=== PATIENT | female | born 1965 | race Hispanic/Latino ===

== ENCOUNTER 2021-05-04 09:28 | Emergency (ER) | payer SELFPAY ==
--- OUTSIDE RECORDS SUMMARY | 2021-05-04 09:31 | XMS REPORT | Continuity of Care Document ---
:1965 Author Organization [facility] t Address [address] [place] [address] Care Team Providers Name Role Phone Wiliam Gutierres APN Attending Clinician Problems This patient has no known problems. Allergies, Adverse Reactions, Alerts This patient has no known allergies or adverse reactions. Medications This patient has no known medications. Procedures This patient has no known procedures. Encounters Start End Encounter Admission Attending Care Care Encounter Source Date/Time Date/Time Type Type Clinicians Facility Department ID 2019-07-01 2019-07-01 Emergency [facility] [id number] 20:04:11 21:35:00 Wiliam [place] [id number] [place] [id number] [place] [id number] Results This patient has no known results.
[2021-05-04 10:32] LABS: Hematocrit 27.8 % (36.0-45.0); Lymphocytes % 33.3 % (15.3-44.8); MPV 10.4 fL (7.6-11.3); RBC Red Blood Cell Count 3.31 M/uL (3.86-4.86)
[2021-05-04 10:36] LABS: Protime INR 0.84
[2021-05-04 10:53] LABS: ALT/SGPT 39 U/L (12-78); AST/SGOT 13 U/L (15-37); Albumin 3.5 g/dL (3.4-5.0); Alkaline Phosphatase 127 U/L (45-117); BUN Blood Urea Nitrogen 55 mg/dL (7-18); Bicarbonate 26 mmol/L (21-32); Bilirubin Direct < 0.1 mg/dL (0-0.2); Bilirubin Total 0.3 mg/dL (0.2-1.0); Glucose Level 386 mg/dL (74-106); Magnesium 2.3 mg/dL (1.8-2.4); NT PRO-BNP 568 pg/mL (<125); Potassium 4.7 mmol/L (3.5-5.1); Protein, Total 7.4 g/dL (6.4-8.2); Sodium Level 136 mmol/L (136-145); Troponin (Emerg Dept Use Only) < 0.02 ng/mL (0.0-0.045)
[2021-05-04 11:07] LABS: Urine Blood 3+ (Negative); Urine Glucose 3+ (Negative); Urine Protein Negative (Negative); Urine Specific Gravity 1.015 (1.005-1.030); Urine pH 5.5 (5.0-7.0)
[2021-05-04] MEDS ORDERED: INSULIN -REGULAR HUMAN 50 UNIT/0.5 ML ML ONE (11:25)
[2021-05-04] MEDS ORDERED: NA CHLORIDE 0.9% 1,000 ML ONE (11:25)
--- NOTE | 2021-05-04 11:51 | RAD REPORT ---
EXAM DESCRIPTION: CT - Head Brain Wo Cont - 05/04/2021 11:24 am CLINICAL HISTORY: Dizziness COMPARISON: 2016 TECHNIQUE: Computed axial tomography of the head was obtained. IV contrast was not requested. All CT scans are performed using dose optimization technique as appropriate and may include automated exposure control or mA/KV adjustment according to patient size. FINDINGS: An intracranial bleed is not seen . The ventricles are normal in caliber. No extra-axial fluid collection is noted. Fluid within the sinuses/ mastoids is not seen. IMPRESSION: No acute intracranial abnormality is seen. If patient's symptoms persist MRI of the bra in would be recommended.
--- NOTE | 2021-05-04 11:54 | RAD REPORT ---
EXAM DESCRIPTION: [place] Single View05/04/2021 11:48 am CLINICAL HISTORY: Shortness of breath COMPARISON: 2017 FINDINGS: Mild chronic appearing lung opacities are present. Lungs appear clear of acute infiltrate. The heart is normal size
[2021-05-04 12:22] LABS: Urine Specific Gravity/Preg 1.015 (1.005-1.030)
[2021-05-04] MEDS ORDERED: D50W 50 ML IV ONE (12:44)
--- NOTE | 2021-05-04 15:11 | EDPHYS ---
Physician Documentation [facility] Name: Khris Salazar Age: 55 yrs Sex: Female : 1965 Arrival Date: 05/04/2021 Time: 09:30 Bed 16 Private MD: ED Physician Philippe Newsome HPI: 05/04 10:08 This 55 yrs old Female presents to ER via Ambulatory with complaints of kb Abnormal Lab Results, Dizziness, Shortness Of Breath. 10:08 The patient has shortness of breath at rest. Onset: The symptoms/episode began/occurred kb 1 month(s) ago. Duration: The symptoms are continuous. The patient's shortness of breath is aggravated by exertion, is alleviated by rest. Associated signs and symptoms: Pertinent positives: dizziness, Pertinent negatives: chest pain, non-productive cough, productive cough, diaphoresis, fever, hemoptysis, loss of consciousness, nausea, numbness in extremities, visual changes, vomiting. Severity of symptoms: At their worst the symptoms were severe in the emergency department the symptoms are unchanged. The patient has not experienced similar symptoms in the past. The patient has not recently seen a physician. Pt reports she had labs done yesterday. Her dr called her today and told her to come to the ER for high potassium and glucose. States she was having routine blood work done to recheck her liver enzymes that were previously high. States she has had some shortness of breath and dizziness over the last month. Shortness of breath worse on exertion. . Historical: - Allergies: 09:56 No Known Allergies; ph - PMHx: 09:56 Diabetes - IDDM; Hypertension; ph - Immunization history:: Client reports having NOT received the Covid vaccine. - Social history:: Smoking status: Patient/guardian denies using tobacco, the patient reports quitting approximately 1 years ago. ROS: 10:10 Constitutional: Negative for fever, chills, and weight loss. kb 10:10 Respiratory: Positive for dyspnea on exertion, shortness of breath. 10:10 Neuro: Positive for dizziness. 10:10 All other systems are negative. Exam: 10:10 Constitutional: This is a well developed, well nourished patient who is awake, alert, kb and in no acute distress. Head/Face: Normocephalic, atraumatic. ENT: Moist Mucous membranes Cardiovascular: Regular rate and rhythm with a normal S1 and S2. No gallops, murmurs, or rubs. No pulse deficits. Respiratory: Respirations even and unlabored. No increased work of breathing, no retractions or nasal flaring. Abdomen/GI: Soft, non-tender. No distention Skin: Warm, dry with normal turgor. Normal color. MS/ Extremity: Pulses equal, no cyanosis. Neurovascular intact. Full, normal range of motion. Neuro: Awake and alert, GCS 15, oriented to person, place, time, and situation. Moves all extremities. Normal gait. Psych: Awake, alert, with orientation to person, place and time. Behavior, mood, and affect are within normal limits. Vital Signs: 09:53 BP 169 / 74; Pulse 99; Resp 18; Temp 98.0; Pulse Ox 98% on R/A; Weight 62.6 kg; ph 11:14 BP 134 / 83; Pulse 90; Resp 16; Pulse Ox 100% ; bp 12:00 BP 129 / 47; Pulse 102; Resp 19; Pulse Ox 100% ; bp 13:08 BP 149 / 56; Pulse 89; Resp 16; Pulse Ox 100% ; bp 14:46 BP 156 / 71; Pulse 94; Resp 16; Pulse Ox 100% ; bp 15:03 BP 156 / 71; Pulse 94; Resp 16; Temp 98; Pulse Ox 100% ; bp MDM: 09:57 Patient medically screened. kb 10:08 Data reviewed: vital signs, nurses notes. Data interpreted: Pulse oximetry: on room air kb is 98 %. Interpretation: normal. 15:09 Counseling: I had a detailed discussion with the patient and/or guardian regarding: the kb historical points, exam findings, and any diagnostic results supporting the discharge/admit diagnosis, lab results, radiology results, the need for outpatient follow up, a family practitioner, to return to the emergency department if symptoms worsen or persist or if there are any questions or concerns that arise at home. ED course: Pt reports she is feeling better. . 05/04 10:03 Order name: Basic Metabolic Panel kb 05/04 10:03 Order name: CBC with Diff; Complete Time: 10:37 kb 05/04 10:03 Order name: LFT's; Complete Time: 10:54 kb 05/04 10:03 Order name: Magnesium; Complete Time: 10:54 kb 05/04 10:03 Order name: NT PRO-BNP; Complete Time: 10:54 kb 05/04 10:03 Order name: PT-INR; Complete Time: 10:37 kb 05/04 10:03 Order name: Troponin (emerg Dept Use Only); Complete Time: 10:54 kb 05/04 10:03 Order name: Acetone, Serum; Complete Time: 10:54 kb 05/04 10:03 Order name: Basic Metabolic Panel; Complete Time: 10:54 EDMS 05/04 11:00 Order name: Glucose bp 05/04 11:01 Order name: Glucose Level; Complete Time: 11:41 EDMS 05/04 11:06 Order name: Urine Dipstick-Ancillary; Complete Time: 11:31 EDMS 05/04 11:09 Order name: Urine --Ancillary (enter results); Complete Time: 12:23 bd 05/04 11:11 Order name: Glucose, Ancillary Testing; Complete Time: 11:31 EDMS 05/04 10:03 Order name: XRAY Chest (1 view); Complete Time: 11:57 kb 05/04 10:03 Order name: EKG; Complete Time: 10:03 kb 05/04 10:03 Order name: Cardiac monitoring; Complete Time: 10:26 kb 05/04 10:03 Order name: EKG - Nurse/Tech; Complete Time: 10:26 kb 05/04 10:03 Order name: IV Saline Lock; Complete Time: 10:39 kb 05/04 10:03 Order name: Labs collected and sent; Complete Time: 10:26 kb 05/04 10:03 Order name: O2 Per Protocol; Complete Time: 10:39 kb 05/04 10:03 Order name: O2 Sat Monitoring; Complete Time: 10:39 kb 05/04 10:57 Order name: CT Head Brain wo Cont; Complete Time: 11:57 kb 05/04 12:23 Order name: Diet Regular; Complete Time: 12:23 kb 05/04 12:33 Order name: Glucose, Ancillary Testing; Complete Time: 12:36 EDMS 05/04 14:18 Order name: Glucose, Ancillary Testing; Complete Time: 14:21 EDMS 05/04 15:13 Order name: Glucose, Ancillary Testing; Complete Time: 15:16 EDMS 05/04 10:03 Order name: Urine Dipstick-Ancillary (obtain specimen); Complete Time: 11:11 kb 05/04 14:58 Order name: Blood Glucose Level; Complete Time: 15:02 kb Administered Medications: 11:10 Drug: Insulin Regular Human 10 units {Co-Signature: [email or web address] (Jamel Perry RN).} Route: IVP; bp Site: left forearm; 13:06 Follow up: Response: Blood sugar is lowered bp 11:10 Drug: NS 0.9% 1000 ml Route: IV; Rate: 1000 ml; Site: left forearm; bp 15:40 Follow up: IV Status: Completed infusion; IV Intake: 1000ml bp 12:35 Drug: D50W 50 ml Route: IVP; Site: left forearm; bp 15:02 Follow up: Response: Marked relief of symptoms bp Disposition: 05/05 08:47 Co-signature as Attending Physician, Philippe Newsome MD I agree with the assessment and kdr plan of care. Disposition Summary: 05/04/21 15:11 Discharge Ordered Location: Home kb Condition: Stable kb Diagnosis - Dizziness and giddiness kb - Hyperglycemia, unspecified kb Followup: kb - With: Emergency Department - When: As needed - Reason: Worsening of condition Followup: kb - With: Private Physician - When: 2 - 3 days - Reason: Recheck today's complaints, Continuance of care, Re-evaluation by your physician Discharge Instructions: - Discharge Summary Sheet kb - Vertigo, [id number] kb - Dizziness, Oryb-ey-[id number] kb - Hyperglycemia, [id number] kb Forms: - Medication Reconciliation Form kb - Thank You Letter kb - Antibiotic Education kb - Prescription Opioid Use kb Signatures: Dispatcher [employer] EDMD Jennifer Mendoza, JIMY-C JIMY-Philippe Proctor MD MD [facility] Jeni Fung, RN RN ph Biju Ramirez, RN RN bp Jamel Perry RN [email or web address] Corrections: (The following items were deleted from the chart) 05/04 15:10 14:21 Counseling: I had a detailed discussion with the patient and/or guardian kb regarding: the historical points, exam findings, and any diagnostic results supporting the discharge/admit diagnosis, lab results, radiology results, the need for outpatient follow up, a family practitioner, to return to the emergency department if symptoms worsen or persist or if there are any questions or concerns that arise at home, : 14: Response to treatment: the patient's symptoms have markedly improved after kb treatment, 15: 14: ED course: Pt states she is feeling much better and wants to go home. Pt agrees kb to stay to lower BGL to acceptable level. Pt will follow up with PCP and return for worsening symptoms. kb
--- NOTE | 2021-05-04 15:11 | ER ---
Nurse's Notes [facility] Name: Khris Salazar Age: 55 yrs Sex: Female : 1965 Arrival Date: 05/04/2021 Time: 09:30 Bed 16 Private MD: Diagnosis: Dizziness and giddiness;Hyperglycemia, unspecified Presentation: 05/04 09:53 Chief complaint: Patient states: Was seen at [facility] yesterday and had blood ph work done, called her today and said her K+ was 6.7, BGL was 792 and liver enzymes were elevated, pt reports SOB and dizziness that has been ongoing for "a few weeks" denies vomiting or pain. Coronavirus screen: Client denies travel out of the [place] in the last 14 days. Ebola Screen: No symptoms or risks identified at this time. Initial Sepsis Screen: Does the patient meet any 2 criteria? No. Patient's initial sepsis screen is negative. Does the patient have a suspected source of infection? No. Patient's initial sepsis screen is negative. Risk Assessment: Do you want to hurt yourself or someone else? Patient reports no desire to harm self or others. Onset of symptoms was May 04, 2021. 09:53 Method Of Arrival: Ambulatory ph 09:53 Acuity: DINO 3 ph Triage Assessment: 10:00 General: Appears in no apparent distress. comfortable, Behavior is cooperative, bp appropriate for age, anxious. Pain: Denies pain. EENT: No deficits noted. Neuro: Reports. Cardiovascular: No deficits noted. Respiratory: Reports shortness of breath Onset: The symptoms/episode began/occurred at an unknown time. the patient has mild shortness of breath. GI: No signs and/or symptoms were reported involving the gastrointestinal system. : No signs and/or symptoms were reported regarding the genitourinary system. Derm: No deficits noted. Musculoskeletal: No deficits noted. Historical: - Allergies: 09:56 No Known Allergies; ph - PMHx: 09:56 Diabetes - IDDM; Hypertension; ph - Immunization history:: Client reports having NOT received the Covid vaccine. - Social history:: Smoking status: Patient/guardian denies using tobacco, the patient reports quitting approximately 1 years ago. Screenin:00 Abuse screen: Denies threats or abuse. Denies injuries from another. Nutritional bp screening: No deficits noted. Tuberculosis screening: No symptoms or risk factors identified. Fall Risk None identified. Assessment: 10:00 General: SEE TRIAGE NOTE. bp 11:14 Reassessment: No changes from previously documented assessment. Patient and/or family bp updated on plan of care and expected duration. Pain level reassessed. Cardiovascular: Rhythm is sinus rhythm. Respiratory: Airway is patent Respiratory effort is even, unlabored, Breath sounds are clear bilaterally. 12:03 Reassessment: No changes from previously documented assessment. Patient and/or family bp updated on plan of care and expected duration. Pain level reassessed. PT RETURNED FROM RAD. ALL CURRENT ORDERS COMPLDTED. 12:27 Reassessment: PT DIAPHORETIC AND TREMULOUS, BGL READS 40. PT GIVEN D50 AMP AND MEAL bp TRAY TO NOTABLE IMPROVEMENT. 14:00 Reassessment: Patient appears in no apparent distress at this time. REPEAT BGL DUE FOR bp DISPO. Neuro: Level of Consciousness is awake, alert, obeys commands, Oriented to Appropriate for age. 15:38 Reassessment: PT D/C HOME AMBULATORY WITH FAMILY, DX WITH DIZZINESS AND HYPERGLYCEMIA. bp Vital Signs: 09:53 BP 169 / 74; Pulse 99; Resp 18; Temp 98.0; Pulse Ox 98% on R/A; Weight 62.6 kg; ph 11:14 BP 134 / 83; Pulse 90; Resp 16; Pulse Ox 100% ; bp 12:00 BP 129 / 47; Pulse 102; Resp 19; Pulse Ox 100% ; bp 13:08 BP 149 / 56; Pulse 89; Resp 16; Pulse Ox 100% ; bp 14:46 BP 156 / 71; Pulse 94; Resp 16; Pulse Ox 100% ; bp 15:03 BP 156 / 71; Pulse 94; Resp 16; Temp 98; Pulse Ox 100% ; bp ED Course: 09:30 Patient arrived in ED. am2 09:56 Triage completed. ph 09:56 Arm band placed on Patient placed in an exam room. ph 09:57 [facility]C [facility] kb 09:57 Philippe Newsome MD is Attending Physician. kb 10:00 Allergy band placed. Bed in low position. Call light in reach. Side rails up X2. bp 10:05 Biju Ramirez, CIARRA is Primary Nurse. bp 10:26 Basic Metabolic Panel Sent. mh5 10:26 Acetone, Serum Sent. [facility] 10:26 Basic Metabolic Panel Sent. [facility] 10:27 Initial lab(s) drawn, by fl, sent to lab. EKG done, by ED staff, reviewed by Philippe Newsome MD. Missed attempt(s): 22 gauge in left forearm. 11:11 Placed in gown. Adult w/ patient. Warm blanket given. java web architect on. Pulse ox on. 5 NIBP on. 11:11 Urine collected: clean catch specimen, clear. [facility] 11:13 Inserted saline lock: 20 gauge in left forearm, using aseptic technique. Blood bp collected. 11:24 CT Head Brain wo Cont In Process Unspecified. EDMS 11:36 Glucose Sent. bp 11:48 XRAY Chest (1 view) In Process Unspecified. EDMS 15:39 No provider procedures requiring assistance completed. IV discontinued, intact, bp bleeding controlled, No redness/swelling at site. Pressure dressing applied. Administered Medications: 11:10 Drug: Insulin Regular Human 10 units {Co-Signature: [email or web address] (Jamel Perry RN).} Route: IVP; bp Site: left forearm; 13:06 Follow up: Response: Blood sugar is lowered bp 11:10 Drug: NS 0.9% 1000 ml Route: IV; Rate: 1000 ml; Site: left forearm; bp 15:40 Follow up: IV Status: Completed infusion; IV Intake: 1000ml bp 12:35 Drug: D50W 50 ml Route: IVP; Site: left forearm; bp 15:02 Follow up: Response: Marked relief of symptoms bp Intake: 15:40 IV: 1000ml; Total: 1000ml. bp Outcome: 15:11 Discharge ordered by . kb 15:39 Discharged to home ambulatory, with family. bp 15:39 Condition: stable 15:39 Discharge instructions given to patient, Instructed on discharge instructions, follow up and referral plans. Demonstrated understanding of instructions, follow-up care. 15:43 Patient left the ED. ld1 Signatures: Dispatcher [employer] EDMS Jennifer Mendoza, MENTAL TESTER-C JIMY-Jeni Courtney RN RN Ashtyn Guerra 5 Jocelyn Calderon am2 Biju Ramirez, RN RN bp Elisabeth Martínez RN RN ld1 Jahala Perry RN [email or web address]
[2021-05-04 16:01] VITALS: O2SAT 100
[2021-05-04 16:06] VITALS: BP 156/71
[2021-05-04 16:07] VITALS: TEMP 98
== END 2021-05-04 15:43 | disposition home or self-care (01) ==
LOC: ER 09:28
DX: E11.65 Type 2 diabetes mellitus with hyperglycemia (principal); I10 Essential (primary) hypertension; Z87.891 Personal history of nicotine dependence
CPT/HCPCS: 36415; 70450; 71045; 80048; 80076; 81003; 81025; 82010; 82947; 83735; 83880; 84484; 85025; 85610; 93005; J7030

== ENCOUNTER 2022-11-13 12:10 | Inpatient (IN) | payer SELFPAY ==
--- OUTSIDE RECORDS SUMMARY | 2022-11-13 12:20 | XMS REPORT | Continuity of Care Document ---
:1965 Author Organization [facility] t Address [address] [place] [address] Care Team Providers Name Role Phone PCP, PATIENT DOES NOT HAVE A Primary Care Physician UnavailHEATHER William Attending Clinician Unavailable Heather Houston MD Attending Clinician Doctor Unassigned, [place] Attending Clinician Unavailable Felipa Monson LVN Attending Clinician GUZMAN SUTTON Attending Clinician Unavailable Serenity Doe NP Attending Clinician Sandeep Shepherd MD Attending Clinician Guzman Sutton MD Attending Clinician Wiliam Gutierres APN Attending Clinician FLYNN ZARATE Attending Clinician Unavailable GUZMAN SUTTON Admitting Clinician Unavailable Guzman Sutton MD Admitting Clinician Problems Condition Condition Condition Status Onset Resolution Last Treating Co mments Source Name Details Category Date Date Treatment Clinician Date Infected Infected Disease Active 2020-11 Unive rs pilonidal pilonidal 2-30 ity of cyst cyst 00:00: [address] ZINA (acute ZINA (acute Disease Active 2020-11 U nivers kidney kidney 2-29 ity of injury) injury) 00:00: [address] Hypokalemi Hypokalemi Disease Active 2016-0 U nivers a a 7-13 ity of 00:00: [place] 00 [facility] Abscess Abscess Disease Active 2016-0 Univers 7-07 ity of 00:00: [place] 00 Medical Branch GERD GERD Disease Active Univers (gastroeso (gastroeso it y of phageal phageal [place] reflux reflux Medical disease) disease) Branch Blurred Blurred Disease Active Univers vision vision ity of [facility] Type 2 Type 2 Disease Active Overview: [facility] s diabetes diabetes Formattin ity of mellitus mellitus g of this Bill as note Medical might be Branch different from the original. since 24 years old, on insulin for 5 years Allergies, Adverse Reactions, Alerts Allergy Allergy Status Severity Reaction(s) Onset Inactive Treating Comm ents Source Name Type Date Date Clinician NO KNOWN Drug Active Univers ALLERGIE Class ity of S [facility] Social History Social Habit Start Date Stop Date Quantity Comments Source History SDOH University o f Alcohol Frequency [facility] edical Branch History SDOR University o f Alcohol Std [place] [facility] Drinks Branch History [facility] o f Alcohol Binge [place] [facility] al Branch Exposure to Not sure University of SARS-CoV-[address] [facility] (event) Branch Alcohol intake 2021-11-14 2021-11-14 0 /d University of 00:00:00 00:00:00 [facility] Cigarettes smoked 2016-05-29 2016-05-29 Univers ity of current (pack per 00:00:00 00:00:00 [facility] ) - Reported Branch Alcohol Comment 2016-05-29 2016-05-29 occasionally Univers ity of 00:00:00 00:00:00 [facility] Tobacco use and 2016-05-29 2016-05-29 Former user Universi ty of exposure 00:00:00 00:00:[address] [facility] Branch History of 2016-05-11 User of smokeless Univers ity of tobacco use 00:00:00 tobacco [facility] Sex [birth year] Universit y of 00:00:00 00:00:00 [facility] Smoking Status Start Date Stop Date Source Former smoker 2016-05-29 00:00:00 2016-05-29 00:00:00 Universi ty of [facility] Medications Ordered Filled Start Stop Current Ordering Indication Dosage Frequency Signature Comments Components Source Medication Medication Date Date Medication? Clinician (SIG) Name Name INJECT 2021-11 No UNITS TWICE 2-19 A DAY 00:00: 00 TAKE 1 2021- No 7unit TABLET 2-19 TWICE DAILY 00:00: WITH FOOD. 00 INJECT 50 2021- No UNITS UNDER 2-19 SKIN IN THE 00:00: MORNING AND 00 40 UNITS UNDER SKIN IN THE EVENING DAILY TAKE 1 2021- No TABLET 2-19 DAILY. 00:00: 00 TAKE 10 ML 2021- No 4-6 HOURS 2-19 NEEDED 00:00: 00 Dose 2021- No Unknown 2-19 00:00: 00 Dose 2021- No Unknown 2-19 00:00: 00 Dose 2021- No Unknown 2-19 00:00: 00 Dose 2021- No Unknown 2-19 00:00: 00 TAKE 1 2021- No 100 CAPSULE BY 2-19 MOUTH EVERY 00:00: 12 HOURS 00 FOR 5 DAYS TAKE 1 2021-11 No TABLET BY 2-19 MOUTH EVERY 00:00: 6 HOURS 00 NEEDED FOR PAIN (SCALE 1-3) OR PAIN (SCALE 7-10) FOR UP TO 7 DAYS Dose 2021-0 No Unknown 9-16 00:00: 00 Dose 2021-0 No Unknown 9-16 00:00: 00 Dose 2021-0 No Unknown 9-16 00:00: 00 Dose 2021-0 No Unknown 8-16 00:00: 00 Dose 2021-0 No Unknown 8-16 00:00: 00 Dose 2021-0 No Unknown 8-16 00:00: 00 Dose 2021-0 No Unknown 8-16 00:00: 00 amlodipine 2-0 No 1mg 10 mg 7-15 tablet 00:00: 00 amlodipine 2-0 No 1mg 10 mg 7-15 tablet 00:00: 00 Dose 2-0 No Unknown 7-15 00:00: 00 amlodipine 2-0 No 1mg 10 mg 7-15 tablet 00:00: 00 losartan 2-0 No 1mg 100 mg 5-18 tablet 00:00: 00 Dose 2-0 No Unknown 5-18 00:00: 00 losartan 2-0 No 1mg 100 mg 5-18 tablet 00:00: 00 Dose 2-0 No Unknown 5-18 00:00: 00 losartan 2-0 No 1mg 100 mg 5-18 tablet 00:00: 00 Dose 2022-0 No Unknown 5-18 00:00: 00 losartan 2022-0 No 1mg 100 mg 5-18 tablet 00:00: 00 losartan 2022-0 No 1mg 100 mg 5-18 tablet 00:00: 00 Dose 2022-0 No Unknown 5-12 00:00: 00 Dose 2022-0 No Unknown 5-12 00:00: 00 Dose 2022-0 No Unknown 5-12 00:00: 00 Dose 2022-0 No Unknown 5-12 00:00: 00 Dose 2022-0 No Unknown 3-16 00:00: 00 Dose 2022-0 No Unknown 3-16 00:00: 00 Dose 2022-0 No Unknown 3-16 00:00: 00 Dose 2022-0 No Unknown 3-16 00:00: 00 Zyrtec-D 5 2021-0 No 1mg mg-120 mg 2-21 tablet,exte 00:00: nded 00 release Dose 2022-0 No Unknown 2-21 00:00: 00 Dose 2022-0 No Unknown 2-21 00:00: 00 Dose 2022-0 No Unknown 2-21 00:00: 00 Dose 2022-0 No Unknown 2-21 00:00: 00 Dose 2022-0 No Unknown 2-21 00:00: 00 Dose 2022-0 No Unknown 2-21 00:00: 00 Dose 2022-0 No Unknown 2-21 00:00: 00 Dose 2022-0 No Unknown 2-21 00:00: 00 Dose 2022-0 No Unknown 2-21 00:00: 00 Dose 2022-0 No Unknown 2-21 00:00: 00 Dose 2022-0 No Unknown 2-21 00:00: 00 Dose 2022-0 No Unknown 2-21 00:00: 00 Dose 2022-0 No Unknown 2-21 00:00: 00 Dose 2022-0 No Unknown 2-21 00:00: 00 Dose 2022-0 No Unknown 2-21 00:00: 00 Zyrtec-D 5 2-0 No 1mg mg-120 mg 2-21 tablet,exte 00:00: nded 00 release Dose 2022-0 No Unknown 2-21 00:00: 00 Dose 2022-0 No Unknown 2-21 00:00: 00 Dose 2022-0 No Unknown 2-21 00:00: 00 Dose 2022-0 No Unknown 2-21 00:00: 00 Dose 2022-0 No Unknown 2-21 00:00: 00 Dose 2022-0 No Unknown 2-21 00:00: 00 Dose 2022-0 No Unknown 2-21 00:00: 00 Dose 2022-0 No Unknown 2-21 00:00: 00 Dose 2022-0 No Unknown 2-21 00:00: 00 Dose 2022-0 No Unknown 2-21 00:00: 00 Dose 2022-0 No Unknown 2-21 00:00: 00 Dose 2022-0 No Unknown 2-21 00:00: 00 Dose 2022-0 No Unknown 2-21 00:00: 00 Dose 2022-0 No Unknown 2-21 00:00: 00 Dose 2022-0 No Unknown 2-21 00:00: 00 Zyrtec-D 5 2-0 No 1mg mg-120 mg 2-21 tablet,exte 00:00: nded 00 release Dose 2022-0 No Unknown 2-21 00:00: 00 Dose 2022-0 No Unknown 2-21 00:00: 00 Dose 2022-0 No Unknown 2-21 00:00: 00 Dose 2022-0 No Unknown 2-21 00:00: 00 Dose 2022-0 No Unknown 2-21 00:00: 00 Dose 2022-0 No Unknown 2-21 00:00: 00 Dose 2022-0 No Unknown 2-21 00:00: 00 Zyrtec-D 5 2-0 No 1mg mg-120 mg 2-21 tablet,exte 00:00: nded 00 release Dose 2022-0 No Unknown 2-21 00:00: 00 Dose 2022-0 No Unknown 2-21 00:00: 00 Dose 2022-0 No Unknown 2-21 00:00: 00 Dose 2022-0 No Unknown 2-21 00:00: 00 Dose 2022-0 No Unknown 2-21 00:00: 00 Dose 2022-0 No Unknown 2-21 00:00: 00 Dose 2022-0 No Unknown 2-21 00:00: 00 Dose 2022-0 No Unknown 2-21 00:00: 00 Dose 2022-0 No Unknown 2-21 00:00: 00 Dose 2022-0 No Unknown 2-21 00:00: 00 Dose 2022-0 No Unknown 2-21 00:00: 00 Dose 2022-0 No Unknown 2-21 00:00: 00 Dose 2022-0 No Unknown 2-21 00:00: 00 Dose 2022-0 No Unknown 2-21 00:00: 00 Dose 2022-0 No Unknown 2-21 00:00: 00 Dose 2022-0 No Unknown 2-21 00:00: 00 Dose 2022-0 No Unknown 2-21 00:00: 00 Dose 2022-0 No Unknown 2-21 00:00: 00 Dose 2022-0 No Unknown 2-21 00:00: 00 Dose 2022-0 No Unknown 2-21 00:00: 00 Dose 2-0 No Unknown 2-21 00:00: 00 Dose 2-0 No Unknown 2-21 00:00: 00 Dose 2022-0 No Unknown 2-21 00:00: 00 Levemir 2022-0 No unit/mL U-100 2-19 Insulin 100 00:00: unit/mL 00 subcutaneou s solution hydrochloro 2-0 No 1mg thiazide 2-19 12.5 mg 00:00: tablet 00 amlodipine 2022-0 No 1mg 10 mg 2-19 tablet 00:00: 00 Dose 2-0 No Unknown 2-19 00:00: 00 Levemir 2022-0 No unit/mL U-100 2-19 Insulin 100 00:00: unit/mL 00 subcutaneou s solution hydrochloro 2022-0 No 1mg thiazide 2-19 12.5 mg 00:00: tablet 00 amlodipine 2022-0 No 1mg 10 mg 2-19 tablet 00:00: 00 Dose 2022-0 No Unknown 2-19 00:00: 00 Levemir 2022-0 No unit/mL U-100 2-19 Insulin 100 00:00: unit/mL 00 subcutaneou s solution hydrochloro 2022-0 No 1mg thiazide 2-19 12.5 mg 00:00: tablet 00 amlodipine 2022-0 No 1mg 10 mg 2-19 tablet 00:00: 00 Dose 2022-0 No Unknown 2-19 00:00: 00 Dose 2022-0 No Unknown 2-19 00:00: 00 hydrochloro 2022-0 No 1mg thiazide 2-19 12.5 mg 00:00: tablet 00 amlodipine 2-0 No 1mg 10 mg 2-19 tablet 00:00: 00 Dose 2-0 No Unknown 2-19 00:00: 00 Levemir 2-0 No unit/mL U-100 1-28 Insulin 100 00:00: unit/mL 00 subcutaneou s solution Levemir 2-0 No unit/mL U-100 -28 Insulin 100 00:00: unit/mL 00 subcutaneou s solution Levemir 2-0 No unit/mL U-100 -28 Insulin 100 00:00: unit/mL 00 subcutaneou s solution Levemir 2-0 No unit/mL U-100 -28 Insulin 100 00:00: unit/mL 00 subcutaneou s solution Dose 2-0 No Unknown 1-26 00:00: 00 Dose 2022-0 No Unknown 1-26 00:00: 00 Dose 2022-0 No Unknown 1-26 00:00: 00 Dose 2022-0 No Unknown 1-26 00:00: 00 Dose 2022-0 No Unknown 1-26 00:00: 00 Dose 2022-0 No Unknown 1-26 00:00: 00 Dose 2022-0 No Unknown 1-26 00:00: 00 Dose 2-0 No Unknown 1-26 00:00: 00 Dose 2022-0 No Unknown 1- 00:00: 00 Dose 2022-0 No Unknown 1- 00:00: 00 Dose 2022-0 No Unknown 1-26 00:00: 00 Dose 2022-0 No Unknown 1-26 00:00: 00 Dose 2022-0 No Unknown 1- 00:00: 00 losartan 2022-0 No 1mg 100 mg 1-12 tablet 00:00: 00 Dose 2022-0 No Unknown 1-12 00:00: 00 losartan 2022-0 No 1mg 100 mg 1-12 tablet 00:00: 00 Dose 2022-0 No Unknown 1-12 00:00: 00 losartan 2022-0 No 1mg 100 mg 1-12 tablet 00:00: 00 Dose 2022-0 No Unknown 1-12 00:00: 00 losartan 2022-0 No 1mg 100 mg 1-12 tablet 00:00: 00 Dose 2022-0 No Unknown 1-10 00:00: 00 Dose No Unknown 1-10 00:00: 00 Dose No Unknown 1-10 00:00: 00 Dose No Unknown 1-10 00:00: 00 ergocalcife 2021- No [id number] Take 1 Univers rol, 11-10 [id number] capsule by ity of vitamin d2, 00:00[place] 05:[place] 1[place]250 [place] 00 :00 weekly for Medi yanni (50,000 6 doses. Branch unit) capsule esomeprazol Yes 40mg Take 40 mg Univers e 40 mg 11-07 by mouth ity of capsule 02:30: [place] 05 breakfast. [place] Branch insulin Yes inject Univers detemir 11-07 under the ity of U-100 02:30: skin. [place] (LEVEMIR 05 Medical U-100 Branch INSULIN) 100 unit/mL injection insulin Yes Inject as Unive rs regular, 11-07 directed. ity of human 02:30: [place] (NOVOLIN R 05 Medical INJECTION) Branch ferrous 2021- No [id number] 325mg Take 1 Univers sulfate 325 11-06 [id number] tablet by ity of mg (65 mg 00:00: 05:59 mouth [place] iron) 00 :00 daily for Medical tablet 30 days. Branch magnesium 2021- No [id number] 400mg Take 1 Univers oxide 400 11-05 tablet by ity of mg (241.3 00:00: 05:59 mouth [place] mg 00 :00 daily for Medical magnesium) 15 days. Branc h tablet Dose 2020-11 No Unknown 2-27 00:00: 00 Dose 2020-11 No Unknown 2-27 00:00: 00 Dose 2020-11 No Unknown 2-27 00:00: 00 Dose 2020-11 No Unknown 2-27 00:00: 00 losartan 2020-11 No 1mg 100 mg 2-23 tablet 00:00: 00 Dose 2020-11 No Unknown 2-23 00:00: 00 losartan 2020-11 No 1mg 100 mg 2-23 tablet 00:00: 00 Dose 2020-11 No Unknown 2-23 00:00: 00 losartan 2020-1 No 1mg 100 mg 2-23 tablet 00:00: 00 Dose 2020-1 No Unknown 2-23 00:00: 00 losartan 2020-1 No 1mg 100 mg 2-23 tablet 00:00: 00 Dose 2020-1 No Unknown 2-23 00:00: 00 losartan 2020-1 No 1mg 100 mg 1-17 tablet 00:00: 00 losartan 2020-1 No 1mg 100 mg 1-17 tablet 00:00: 00 losartan 2020-1 No 1mg 100 mg 1-17 tablet 00:00: 00 losartan 2020-1 No 1mg 100 mg 1-17 tablet 00:00: 00 nitrofurant 2020-1 No 1mg oin 0-21 macrocrysta 00:00: l 100 mg 00 capsule nitrofurant 2020-1 No 1mg oin 0-21 macrocrysta 00:00: l 100 mg 00 capsule nitrofurant 2020-1 No 1mg oin 0-21 macrocrysta 00:00: l 100 mg 00 capsule nitrofurant 2020-1 No 1mg oin 0-21 macrocrysta 00:00: l 100 mg 00 capsule methimazole 2020-0 No 1mg 5 mg tablet 07-07 00:00: 00 methimazole 2020-0 No 1mg 5 mg tablet 07-07 00:00: 00 methimazole 2020-0 No 1mg 5 mg tablet 07-07 00:00: 00 methimazole 2020-0 No 1mg 5 mg tablet 07-07 00:00: 00 Dose 2020-0 No Unknown 7-16 00:00: 00 Novolin R 2020-0 No 1unit/m Regular 7-16 L U-100 00:00: Insulin 100 00 unit/mL injection solution hydrochloro 2020-0 No 1mg thiazide 7-16 12.5 mg 00:00: tablet 00 losartan 2020-0 No 1mg 100 mg 7-16 tablet 00:00: 00 ferrous 2020-0 No 1(65 mg sulfate 324 7-16 iron) mg (65 mg 00:00: iron) 00 tablet,gaby yed release Dose 2020-0 No Unknown 7-16 00:00: 00 Dose 2020-0 No Unknown 7-16 00:00: 00 Novolin R 1-0 No 1unit/m Regular 7-16 L U-100 00:00: Insulin 100 00 unit/mL injection solution hydrochloro 2020-0 No 1mg thiazide 7-16 12.5 mg 00:00: tablet 00 losartan 1-0 No 1mg 100 mg 7-16 tablet 00:00: 00 ferrous 1-0 No 1(65 mg sulfate 324 7-16 iron) mg (65 mg 00:00: iron) 00 tablet,gaby yed release Dose 2020-0 No Unknown 7-16 00:00: 00 Dose 1-0 No Unknown 7-16 00:00: 00 Novolin R 1-0 No 1unit/m Regular 7-16 L U-100 00:00: Insulin 100 00 unit/mL injection solution hydrochloro 2020-0 No 1mg thiazide 7-16 12.5 mg 00:00: tablet 00 losartan 1-0 No 1mg 100 mg 7-16 tablet 00:00: 00 ferrous 1-0 No 1(65 mg sulfate 324 7-16 iron) mg (65 mg 00:00: iron) 00 tablet,gaby yed release Dose 2020-0 No Unknown 7-16 00:00: 00 Dose 1-0 No Unknown 7-16 00:00: 00 Novolin R 1-0 No 1unit/m Regular 7-16 L U-100 00:00: Insulin 100 00 unit/mL injection solution hydrochloro 2020-0 No 1mg thiazide 7-16 12.5 mg 00:00: tablet 00 losartan 1-0 No 1mg 100 mg 7-16 tablet 00:00: 00 ferrous 1-0 No 1(65 mg sulfate 324 7-16 iron) mg (65 mg 00:00: iron) 00 tablet,gaby yed release Dose 2020-0 No Unknown 7-16 00:00: 00 losartan 1-0 No 1mg 100 mg 7-12 tablet 00:00: 00 losartan 2021-0 No 1mg 100 mg 7-12 tablet 00:00: 00 losartan 2021-0 No 1mg 100 mg 7-12 tablet 00:00: 00 losartan 1-0 No 1mg 100 mg 7-12 tablet 00:00: 00 methimazole 1-0 No 1mg 5 mg tablet 6-17 00:00: 00 methimazole 2021-0 No 1mg 5 mg tablet 6-17 00:00: 00 methimazole 2021-0 No 1mg 5 mg tablet 6-17 00:00: 00 methimazole 2021-0 No 1mg 5 mg tablet 6-17 00:00: 00 Macrobid 2021-0 No 1mg 100 mg 6-14 capsule 00:00: 00 Macrobid 2021-0 No 1mg 100 mg 6-14 capsule 00:00: 00 Macrobid 2021-0 No 1mg 100 mg 6-14 capsule 00:00: 00 Macrobid 2021-0 No 1mg 100 mg 6-14 capsule 00:00: 00 hydrochloro 2021-0 No 1mg thiazide 4-17 12.5 mg 00:00: tablet 00 hydrochloro 2021-0 No 1mg thiazide 4-17 12.5 mg 00:00: tablet 00 hydrochloro 2021-0 No 1mg thiazide 4-17 12.5 mg 00:00: tablet 00 hydrochloro 2021-0 No 1mg thiazide 4-17 12.5 mg 00:00: tablet 00 Levemir 1-0 No 30unit/ U-100 4-10 mL Insulin 100 00:00: unit/mL 00 subcutaneou s solution Novolin R 2021-0 No 1unit/m Regular 4-10 L U-100 00:00: Insulin 100 00 unit/mL injection solution losartan 2021-0 No 1mg 100 mg 4-10 tablet 00:00: 00 Levemir 2021-0 No 30unit/ U-100 4-10 mL Insulin 100 00:00: unit/mL 00 subcutaneou s solution Novolin R 2021-0 No 1unit/m Regular 4-10 L U-100 00:00: Insulin 100 00 unit/mL injection solution losartan 2021-0 No 1mg 100 mg 4-10 tablet 00:00: 00 Levemir 2021-0 No 30unit/ U-100 4-10 mL Insulin 100 00:00: unit/mL 00 subcutaneou s solution Novolin R 2021-0 No 1unit/m Regular 4-10 L U-100 00:00: Insulin 100 00 unit/mL injection solution losartan 2021-0 No 1mg 100 mg 4-10 tablet 00:00: 00 Levemir 2021-0 No 30unit/ U-100 4-10 mL Insulin 100 00:00: unit/mL 00 subcutaneou s solution Novolin R 2021-0 No 1unit/m Regular 4-10 L U-100 00:00: Insulin 100 00 unit/mL injection solution losartan 1-0 No 1mg 100 mg 4-10 tablet 00:00: 00 losartan 50 1-0 No 1mg mg tablet 3-24 00:00: 00 diclofenac 2021-0 No 1mg sodium 75 3-24 mg 00:00: tablet,gaby 00 yed release cyclobenzap 2021-0 No 12mg rine 5 mg 3-24 tablet 00:00: 00 losartan 50 1-0 No 1mg mg tablet 3-24 00:00: 00 diclofenac 2021-0 No 1mg sodium 75 3-24 mg 00:00: tablet,gbay 00 yed release cyclobenzap 1-0 No 12mg rine 5 mg 3-24 tablet 00:00: 00 losartan 50 1-0 No 1mg mg tablet 3-24 00:00: 00 diclofenac 2021-0 No 1mg sodium 75 3-24 mg 00:00: tablet,gaby 00 yed release cyclobenzap 2021-0 No 12mg rine 5 mg 3-24 tablet 00:00: 00 losartan 50 1-0 No 1mg mg tablet 3-24 00:00: 00 diclofenac 2021-0 No 1mg sodium 75 3-24 mg 00:00: tablet,gaby 00 yed release cyclobenzap 1-0 No 12mg rine 5 mg 3-24 tablet 00:00: 00 diclofenac 2020-0 No 1mg sodium 75 6-23 mg 00:00: tablet,gaby 00 yed release diclofenac 2020-0 No 1mg sodium 75 6-23 mg 00:00: tablet,gaby 00 yed release diclofenac 2020-0 No 1mg sodium 75 6-23 mg 00:00: tablet,gaby 00 yed release diclofenac 2020-0 No 1mg sodium 75 6-23 mg 00:00: tablet,gaby 00 yed release Levemir 2020-0 No 20unit/ U-100 6-20 mL Insulin 100 00:00: unit/mL 00 subcutaneou s solution Levemir 2020-0 No 20unit/ U-100 6-20 mL Insulin 100 00:00: unit/mL 00 subcutaneou s solution Novolin R 2020-0 No 1unit/m Regular 6-20 L U-100 00:00: Insulin 100 00 unit/mL injection solution losartan 50 2020-0 No 1mg mg tablet 6-20 00:00: 00 Bactrim DS 2020-0 No 1mg 800 mg-160 6-20 mg tablet 00:00: 00 Nexium 40 2020-0 No 1mg mg 6-20 capsule,del 00:00: ayed 00 release Novolin R 2020-0 No 1unit/m Regular 6-20 L U-100 00:00: Insulin 100 00 unit/mL injection solution losartan 50 2020-0 No 1mg mg tablet 620 00:00: 00 Bactrim DS 2020-0 No 1mg 800 mg-160 6-20 mg tablet 00:00: 00 Nexium 40 2020-0 No 1mg mg 6-20 capsule,del 00:00: ayed 00 release Levemir 2020-0 No 20unit/ U-100 6-20 mL Insulin 100 00:00: unit/mL 00 subcutaneou s solution Novolin R 2020-0 No 1unit/m Regular 6-20 L U-100 00:00: Insulin 100 00 unit/mL injection solution losartan 50 2020-0 No 1mg mg tablet 6-20 00:00: 00 Bactrim DS 2020-0 No 1mg 800 mg-160 6-20 mg tablet 00:00: 00 Nexium 40 2020-0 No 1mg mg 6-20 capsule,del 00:00: ayed 00 release Levemir 2020-0 No 20unit/ U-100 6-20 mL Insulin 100 00:00: unit/mL 00 subcutaneou s solution Novolin R 2020-0 No 1unit/m Regular 6-20 L U-100 00:00: Insulin 100 00 unit/mL injection solution losartan 50 2020-0 No 1mg mg tablet 6-20 00:00: 00 Bactrim DS 2020-0 No 1mg 800 mg-160 6-20 mg tablet 00:00: 00 Nexium 40 2020-0 No 1mg mg 6-20 capsule,del 00:00: ayed 00 release ProAir HFA 2018- No 12mcg/a 90 2-27 ctuatio mcg/actuati 00:00: n on aerosol 00 inhaler Novolin R 2018-1 No 1unit/m Regular 2-27 L U-100 00:00: Insulin 100 00 unit/mL injection solution Augmentin 2018- No 1mg 875 mg-125 2-27 mg tablet 00:00: 00 ProAir HFA 2018- No 12mcg/a 90 2-27 ctuatio mcg/actuati 00:00: n on aerosol 00 inhaler Novolin R 2018- No 1unit/m Regular 2-27 L U-100 00:00: Insulin 100 00 unit/mL injection solution Augmentin 2018- No 1mg 875 mg-125 2-27 mg tablet 00:00: 00 ProAir HFA 2018- No 12mcg/a 90 2-27 ctuatio mcg/actuati 00:00: n on aerosol 00 inhaler Novolin R 2018-1 No 1unit/m Regular 2-27 L U-100 00:00: Insulin 100 00 unit/mL injection solution Augmentin 2018- No 1mg 875 mg-125 2-27 mg tablet 00:00: 00 ProAir HFA 2018- No 12mcg/a 90 2-27 ctuatio mcg/actuati 00:00: n on aerosol 00 inhaler Novolin R 2018-1 No 1unit/m Regular 2-27 L U-100 00:00: Insulin 100 00 unit/mL injection solution Augmentin 2018- No 1mg 875 mg-125 2-27 mg tablet 00:00: 00 Levemir 2019-1 No 20unit/ U-100 0-01 mL Insulin 100 00:00: unit/mL 00 subcutaneou s solution amitriptyli 2018- No 1mg ne 50 mg 0-01 tablet 00:00: 00 Levemir 2019-1 No 20unit/ U-100 0-01 mL Insulin 100 00:00: unit/mL 00 subcutaneou s solution amitriptyli 2018-1 No 1mg ne 50 mg 0-01 tablet 00:00: 00 Levemir 2019-1 No 20unit/ U-100 0-01 mL Insulin 100 00:00: unit/mL 00 subcutaneou s solution amitriptyli 2019-1 No 1mg ne 50 mg 0-01 tablet 00:00: 00 Levemir 2019-1 No 20unit/ U-100 0-01 mL Insulin 100 00:00: unit/mL 00 subcutaneou s solution amitriptyli 2019-1 No 1mg ne 50 mg 0-01 tablet 00:00: 00 Novolin 2019-0 No 20unit/ 70/30 U-100 9-04 mL Insulin 100 00:00: (70-30) unit/mL 00 subcutaneou s suspension Cipro 500 2019-0 No 1mg mg tablet 07-09 00:00: 00 Novolin 2019-0 No 20unit/ 70/30 U-100 9-04 mL Insulin 100 00:00: (70-30) unit/mL 00 subcutaneou s suspension Cipro 500 2019-0 No 1mg mg tablet 07-09 00:00: 00 Novolin 2019-0 No 20unit/ 70/30 U-100 9-04 mL Insulin 100 00:00: (70-30) unit/mL 00 subcutaneou s suspension Cipro 500 2019-0 No 1mg mg tablet 07-09 00:00: 00 Novolin 2019-0 No 20unit/ 70/30 U-100 9-04 mL Insulin 100 00:00: (70-30) unit/mL 00 subcutaneou s suspension Cipro 500 2019-0 No 1mg mg tablet 07-09 00:00: 00 amitriptyli 2019-0 No 1mg ne 50 mg 7-03 tablet 00:00: 00 amitriptyli 2019-0 No 1mg ne 50 mg 7-03 tablet 00:00: 00 amitriptyli 2019-0 No 1mg ne 50 mg 7-03 tablet 00:00: 00 amitriptyli 2019-0 No 1mg ne 50 mg 7-03 tablet 00:00: 00 Novolin 2019-0 No 15unit/ 70/30 U-100 6-19 mL Insulin 100 00:00: (70-30) unit/mL 00 subcutaneou s suspension Nexium 24HR 2019-0 No 1mg 20 mg 6-19 tablet,gaby 00:00: yed release 00 lisinopril 2019-0 No 1mg 20 mg 6-19 tablet 00:00: 00 gabapentin 2019-0 No 12mg 100 mg 6-19 capsule 00:00: 00 Novolin 2019-0 No 15unit/ 70/30 U-100 6-19 mL Insulin 100 00:00: (70-30) unit/mL 00 subcutaneou s suspension Nexium 24HR 2019-0 No 1mg 20 mg 6-19 tablet,gaby 00:00: yed release 00 lisinopril 2019-0 No 1mg 20 mg 6-19 tablet 00:00: 00 gabapentin 2019-0 No 12mg 100 mg 6-19 capsule 00:00: 00 Novolin 2019-0 No 15unit/ 70/30 U-100 6-19 mL Insulin 100 00:00: (70-30) unit/mL 00 subcutaneou s suspension Nexium 24HR 2019-0 No 1mg 20 mg 6-19 tablet,gaby 00:00: yed release 00 lisinopril 2019-0 No 1mg 20 mg 6-19 tablet 00:00: 00 gabapentin 2019-0 No 12mg 100 mg 6-19 capsule 00:00: 00 Novolin 2019-0 No 15unit/ 70/30 U-100 6-19 mL Insulin 100 00:00: (70-30) unit/mL 00 subcutaneou s suspension Nexium 24HR 2019-0 No 1mg 20 mg 6-19 tablet,gaby 00:00: yed release 00 lisinopril 2019-0 No 1mg 20 mg 6-19 tablet 00:00: 00 gabapentin 2019-0 No 12mg 100 mg 6-19 capsule 00:00: 00 ibuprofen 2018-0 Yes 600mg Take 1 Unive rs 600 mg 6-12 tablet by ity of tablet 00:00: mouth [place] 00 every 6 Medical (six) Branch hours as needed for Pain (scale 4-6). Novolin 2018-0 No 15unit/ 70/30 U-100 3-05 mL Insulin 100 00:00: (70-30) unit/mL 00 subcutaneou s suspension Novolin 2018-0 No unit/mL 70/30 U-100 3-05 (70-30) Insulin 100 00:00: unit/mL 00 subcutaneou s suspension Novolin 2018-0 No 15unit/ 70/30 U-100 3-05 mL Insulin 100 00:00: (70-30) unit/mL 00 subcutaneou s suspension Novolin 2018-0 No unit/mL 70/30 U-100 3-05 (70-30) Insulin 100 00:00: unit/mL 00 subcutaneou s suspension Novolin 2018-0 No 15unit/ 70/30 U-100 3-05 mL Insulin 100 00:00: (70-30) unit/mL 00 subcutaneou s suspension Novolin 2018-0 No unit/mL 70/30 U-100 3-05 (70-30) Insulin 100 00:00: unit/mL 00 subcutaneou s suspension Novolin 2018-0 No 15unit/ 70/30 U-100 3-05 mL Insulin 100 00:00: (70-30) unit/mL 00 subcutaneou s suspension Novolin 2018-0 No unit/mL 70/30 U-100 3-05 (70-30) Insulin 100 00:00: unit/mL 00 subcutaneou s suspension Novolin 2018-0 No unit/mL 70/30 U-100 1-09 (70-30) Insulin 100 00:00: unit/mL 00 subcutaneou s suspension Novolin 2018-0 No unit/mL 70/30 U-100 1-09 (70-30) Insulin 100 00:00: unit/mL 00 subcutaneou s suspension Novolin 2018-0 No unit/mL 70/30 U-100 1-09 (70-30) Insulin 100 00:00: unit/mL 00 subcutaneou s suspension Novolin 2018-0 No unit/mL 70/30 U-100 1-09 (70-30) Insulin 100 00:00: unit/mL 00 subcutaneou s suspension lovastatin 2016-11 No 1mg 20 mg 0-26 tablet 00:00: 00 lovastatin 2016- No 1mg 20 mg 0-26 tablet 00:00: 00 lovastatin 2016- No 1mg 20 mg 0-26 tablet 00:00: 00 lovastatin 2016-1 No 1mg 20 mg 0-26 tablet 00:00: 00 lisinopril 2016-11 No 1mg 20 mg 0-25 tablet 00:00: 00 lisinopril 2016-11 No 1mg 20 mg 0-25 tablet 00:00: 00 lisinopril 2017-1 No 1mg 20 mg 0-25 tablet 00:00: 00 lisinopril 2017-1 No 1mg 20 mg 0-25 tablet 00:00: 00 Novolin 2017-0 No unit/mL 70/30 U-100 7-13 (70-30) Insulin 100 00:00: unit/mL 00 subcutaneou s suspension Novolin 2017-0 No unit/mL 70/30 U-100 7-13 (70-30) Insulin 100 00:00: unit/mL 00 subcutaneou s suspension Novolin 2017-0 No unit/mL 70/30 U-100 7-13 (70-30) Insulin 100 00:00: unit/mL 00 subcutaneou s suspension Novolin 2017-0 No unit/mL 70/30 U-100 7-13 (70-30) Insulin 100 00:00: unit/mL 00 subcutaneou s suspension Novolin R 2017-0 No unit/mL Regular 6-30 U-100 00:00: Insulin 100 00 unit/mL injection solution Levemir 100 2017-0 No 10unit/ unit/mL 6-30 mL subcutaneou 00:00: s solution 00 Novolin R 2017-0 No unit/mL 100 unit/mL 6-30 injection 00:00: solution 00 Novolin R 2017-0 No unit/mL Regular 6-30 U-100 00:00: Insulin 100 00 unit/mL injection solution Levemir 100 2017-0 No 10unit/ unit/mL 6-30 mL subcutaneou 00:00: s solution 00 Novolin R 2017-0 No unit/mL 100 unit/mL 6-30 injection 00:00: solution 00 Novolin R 2017-0 No unit/mL Regular 6-30 U-100 00:00: Insulin 100 00 unit/mL injection solution Levemir 100 2017-0 No 10unit/ unit/mL 6-30 mL subcutaneou 00:00: s solution 00 Novolin R 2017-0 No unit/mL 100 unit/mL 6-30 injection 00:00: solution 00 Novolin R 2017-0 No unit/mL Regular 6-30 U-100 00:00: Insulin 100 00 unit/mL injection solution Levemir 100 2017-0 No 10unit/ unit/mL 6-30 mL subcutaneou 00:00: s solution 00 Novolin R 2017-0 No unit/mL 100 unit/mL 6-30 injection 00:00: solution 00 lovastatin 2017-0 No 1mg 20 mg 6-25 tablet 00:00: 00 lovastatin 2017-0 No 1mg 20 mg 6-25 tablet 00:00: 00 lovastatin 2017-0 No 1mg 20 mg 6-25 tablet 00:00: 00 lovastatin 2017-0 No 1mg 20 mg 6-25 tablet 00:00: 00 lovastatin 2017-0 No 1mg 20 mg 6-25 tablet 00:00: 00 lovastatin 2017-0 No 1mg 20 mg 6-25 tablet 00:00: 00 lovastatin 2017-0 No 1mg 20 mg 6-25 tablet 00:00: 00 lovastatin 2017-0 No 1mg 20 mg 6-25 tablet 00:00: 00 lisinopril 2017-0 No 1mg 20 mg 6-23 tablet 00:00: 00 hydrochloro 2017-0 No 1mg thiazide 6-23 12.5 mg 00:00: tablet 00 lisinopril 2017-0 No 1mg 20 mg 6-23 tablet 00:00: 00 lisinopril 2017-0 No 1mg 20 mg 6-23 tablet 00:00: 00 hydrochloro 2017-0 No 1mg thiazide 6-23 12.5 mg 00:00: tablet 00 hydrochloro 2017-0 No 1mg thiazide 6-23 12.5 mg 00:00: tablet 00 lisinopril 2017-0 No 1mg 20 mg 6-23 tablet 00:00: 00 hydrochloro 2017-0 No 1mg thiazide 6-23 12.5 mg 00:00: tablet 00 Novolin 2017-0 No 15unit/ /30 100 6-22 mL unit/mL 00:00: () subcutaneou 00 s suspension Novolin 2017-0 No 15unit/ /30 100 6-22 mL unit/mL 00:00: () subcutaneou 00 s suspension Novolin 2017-0 No 15unit/ 70/30 100 6-22 mL unit/mL 00:00: () subcutaneou 00 s suspension Novolin 2017-0 No 15unit/ /30 100 6-22 mL unit/mL 00:00: () subcutaneou 00 s suspension omeprazole 2016-0 Yes 20mg Take 1 Unive rs (PRILOSEC) 7-17 capsule by ity of 20 mg 00:00: mouth [place] capsule 00 daily. [facility] Vital Signs Vital Name Observation Time Observation Value Comments Source Systolic blood 2021-11-14 17:34:00 170 mm[Hg] Univer sity of pressure [facility] Diastolic blood 2021-11-14 17:34:00 80 mm[Hg] [facility] Heart rate 2021-11-14 17:34:00 80 /min [facility] Body temperature 2021-11-14 17:32:00 36.83 [facility] Res[facility] rate 2021-11-14 17:32:00 20 /min [facility] Body height 2021-11-14 17:32:00 157.5 cm [facility] Body weight 2021-11-14 17:32:00 62.596 kg [facility] BMI 2021-11-14 17:32:00 25.24 kg/m2 [facility] Oxygen saturation in 2021-11-14 17:32:00 98 /min [facility] Arterial blood by [facility] Pulse oximetry Branch BP Systolic 2022-11-10 16:39:00 146 mm[Hg] BP Diastolic 2022-11-10 16:39:00 83 mm[Hg] Weight Measured 2022-11-10 16:39:00 158.30 pounds Height Measured 2022-11-10 16:39:00 62.60 inches Body Temperature 2022-11-10 16:39:00 98.20 degrees Heart Rate 2022-11-10 16:39:00 99.00 /min Respiratory Rate 2022-11-10 16:39:00 18.00 /min BP Systolic 2022-09-14 17:27:00 164 mm[Hg] BP Diastolic 2022-09-14 17:27:00 74 mm[Hg] Weight Measured 2022-09-14 17:27:00 163.20 pounds Height Measured 2022-09-14 17:27:00 62.60 inches Body Temperature 2022-09-14 17:27:00 98.20 degrees Heart Rate 2022-09-14 17:27:00 103.00 /min Respiratory Rate 2022-09-14 17:27:00 18.00 /min BP Systolic 2022-08-18 15:47:00 147 mm[Hg] BP Diastolic 2022-08-18 15:47:00 83 mm[Hg] Weight Measured 2022-08-18 15:47:00 147.80 pounds Height Measured 2022-08-18 15:47:00 62.60 inches Body Temperature 2022-08-18 15:47:00 98.30 degrees Heart Rate 2022-08-18 15:47:00 96.00 /min Respiratory Rate 2022-08-18 15:47:00 18.00 /min BP Systolic 2022-08-18 14:33:00 147 mm[Hg] BP Diastolic 2022-08-18 14:33:00 83 mm[Hg] Weight Measured 2022-08-18 14:33:00 147.80 pounds Height Measured 2022-08-18 14:33:00 62.60 inches Body Temperature 2022-08-18 14:33:00 98.30 degrees Heart Rate 2022-08-18 14:33:00 96.00 /min Respiratory Rate 2022-08-18 14:33:00 18.00 /min BP Systolic 2022-06-26 17:15:00 198 mm[Hg] BP Diastolic 2022-06-26 17:15:00 95 mm[Hg] Weight Measured 2022-06-26 17:15:00 152.00 pounds Height Measured 2022-06-26 17:15:00 62.60 inches Body Temperature 2022-06-26 17:15:00 98.10 degrees Heart Rate 2022-06-26 17:15:00 90.00 /min Respiratory Rate 2022-06-26 17:15:00 BP Systolic 2021-12-26 09:02:00 155 mm[Hg] BP Diastolic 2021-12-26 09:02:00 73 mm[Hg] Weight Measured 2021-12-26 09:02:00 152.00 pounds Height Measured 2021-12-26 09:02:00 62.60 inches Body Temperature 2021-12-26 09:02:00 98.40 degrees Heart Rate 2021-12-26 09:02:00 92.00 /min Respiratory Rate 2021-12-26 09:02:00 BP Systolic 2021-12-24 13:48:00 150 mm[Hg] BP Diastolic 2021-12-24 13:48:00 75 mm[Hg] Weight Measured 2021-12-24 13:48:00 150.60 pounds Height Measured 2021-12-24 13:48:00 62.60 inches Body Temperature 2021-12-24 13:48:00 98.30 degrees Heart Rate 2021-12-24 13:48:00 97.00 /min Respiratory Rate 2021-12-24 13:48:00 BP Systolic 2021-12-24 13:25:00 150 mm[Hg] BP Diastolic 2021-12-24 13:25:00 75 mm[Hg] Weight Measured 2021-12-24 13:25:00 150.60 pounds Height Measured 2021-12-24 13:25:00 62.60 inches Body Temperature 2021-12-24 13:25:00 98.30 degrees Heart Rate 2021-12-24 13:25:00 97.00 /min Respiratory Rate 2021-12-24 13:25:00 BP Systolic 2021-11-30 17:12:00 177 mm[Hg] BP Diastolic 2021-11-30 17:12:00 83 mm[Hg] Weight Measured 2021-11-30 17:12:00 147.20 pounds Height Measured 2021-11-30 17:12:00 62.60 inches Body Temperature 2021-11-30 17:12:00 98.10 degrees Heart Rate 2021-11-30 17:12:00 88.00 /min Respiratory Rate 2021-11-30 17:12:00 16.00 /min BP Systolic 2021-11-16 17:10:00 174 mm[Hg] BP Diastolic 2021-11-16 17:10:00 76 mm[Hg] Weight Measured 2021-11-16 17:10:00 146.20 pounds Height Measured 2021-11-16 17:10:00 62.60 inches Body Temperature 2021-11-16 17:10:00 98.20 degrees Heart Rate 2021-11-16 17:10:00 107.00 /min Respiratory Rate 2021-11-16 17:10:00 27.00 /min BP Systolic 2021-10-31 10:43:00 141 mm[Hg] BP Diastolic 2021-10-31 10:43:00 77 mm[Hg] Weight Measured 2021-10-31 10:43:00 136.80 pounds Height Measured 2021-10-31 10:43:00 62.60 inches Body Temperature 2021-10-31 10:43:00 98.30 degrees Heart Rate 2021-10-31 10:43:00 106.00 /min Respiratory Rate 2021-10-31 10:43:00 BP Systolic 2021-10-27 14:32:00 137 mm[Hg] BP Diastolic 2021-10-27 14:32:00 74 mm[Hg] Weight Measured 2021-10-27 14:32:00 137.20 pounds Height Measured 2021-10-27 14:32:00 62.60 inches Body Temperature 2021-10-27 14:32:00 98.10 degrees Heart Rate 2021-10-27 14:32:00 110.00 /min Respiratory Rate 2021-10-27 14:32:00 BP Systolic 2021-05-20 13:39:00 108 mm[Hg] BP Diastolic 2021-05-20 13:39:00 49 mm[Hg] Weight Measured 2021-05-20 13:39:00 145.40 pounds Height Measured 2021-05-20 13:39:00 62.60 inches Body Temperature 2021-05-20 13:39:00 98.40 degrees Heart Rate 2021-05-20 13:39:00 102.00 /min Respiratory Rate 2021-05-20 13:39:00 BP Systolic 2021-04-15 10:15:00 129 mm[Hg] BP Diastolic 2021-04-15 10:15:00 67 mm[Hg] Weight Measured 2021-04-15 10:15:00 136.80 pounds Height Measured 2021-04-15 10:15:00 62.60 inches Body Temperature 2021-04-15 10:15:00 98.40 degrees Heart Rate 2021-04-15 10:15:00 107.00 /min Respiratory Rate 2021-04-15 10:15:00 Procedures Procedure Date / Time Performed Performing Clinician [facility] e 27428 Ecg Routine Ecg W/least 12 2017-04-27 00:00:00 Lds W/i r Plan of Care Planned Activity Planned Date Details Comments Source Goal Plan of Care Note [code = 01858-2] Goal Plan of Care Note [code = 99568-6] Goal Plan of Care Note [code = 62443-2] Goal Plan of Care Note [code = 54818-5] Goal Plan of Care Note [code = 67404-9] Goal Plan of Care Note [code = 86687-8] Goal Plan of Care Note [code = 11022-6] Goal Plan of Care Note [code = 80428-7] Goal Plan of Care Note [code = 45083-0] Goal Plan of Care Note [code = 88140-6] Goal Plan of Care Note [code = 59318-7] Goal Plan of Care Note [code = 57620-0] Goal Plan of Care Note [code = 31179-7] Goal Plan of Care Note [code = 31029-4] Goal Plan of Care Note [code = 29403-9] Goal Plan of Care Note [code = 86339-8] Goal Plan of Care Note [code = 76151-7] Goal Plan of Care Note [code = 12557-3] Goal Plan of Care Note [code = 25375-8] Goal Plan of Care Note [code = 85339-8] Goal Plan of Care Note [code = 51186-2] Goal Plan of Care Note [code = 95417-0] Goal Plan of Care Note [code = 57001-7] Goal Plan of Care Note [code = 56236-4] Goal Plan of Care Note [code = 95641-3] Goal Plan of Care Note [code = 98017-7] Goal Plan of Care Note [code = 85817-3] Goal Plan of Care Note [code = 70501-2] Goal Plan of Care Note [code = 86359-5] Goal Plan of Care Note [code = 73880-9] Goal Plan of Care Note [code = 10313-5] Goal Plan of Care Note [code = 69236-2] Goal Plan of Care Note [code = 00814-8] Goal Plan of Care Note [code = 44816-3] Goal Plan of Care Note [code = 15943-2] Goal Plan of Care Note [code = 69892-7] Goal Plan of Care Note [code = 05136-7] Goal Plan of Care Note [code = 25807-1] Goal Plan of Care Note [code = 19233-7] Goal Plan of Care Note [code = 00356-7] Goal Plan of Care Note [code = 66126-0] Goal Plan of Care Note [code = 70022-8] Goal Plan of Care Note [code = 48157-7] Goal Plan of Care Note [code = 34380-9] Goal Plan of Care Note [code = 87128-7] Goal Plan of Care Note [code = 47140-7] Goal Plan of Care Note [code = 41423-1] Goal Plan of Care Note [code = 80150-2] Goal Plan of Care Note [code = 52314-5] Goal Plan of Care Note [code = 78118-4] Goal Plan of Care Note [code = 03234-9] Goal Plan of Care Note [code = 71211-0] Goal Plan of Care Note [code = 07158-8] Goal Plan of Care Note [code = 21696-9] Goal Plan of Care Note [code = 05279-2] Goal Plan of Care Note [code = 48144-9] Goal Plan of Care Note [code = 42770-8] Goal Plan of Care Note [code = 04288-4] Goal Plan of Care Note [code = 91797-4] Goal Plan of Care Note [code = 33047-0] Goal Plan of Care Note [code = 98054-4] Goal Plan of Care Note [code = 68118-5] Goal Plan of Care Note [code = 32010-4] Goal Plan of Care Note [code = 76587-6] Goal Plan of Care Note [code = 31010-9] Goal Plan of Care Note [code = 13403-3] Goal Plan of Care Note [code = 92842-5] Goal Plan of Care Note [code = 62854-2] Goal Plan of Care Note [code = 84026-2] Goal Plan of Care Note [code = 88458-8] Goal Plan of Care Note [code = 12579-2] Goal Plan of Care Note [code = 83078-4] Goal Plan of Care Note [code = 16403-3] Goal Plan of Care Note [code = 18189-1] Goal Plan of Care Note [code = 28545-9] Goal Plan of Care Note [code = 68580-3] Goal Plan of Care Note [code = 92724-1] Goal Plan of Care Note [code = 93150-3] Goal Plan of Care Note [code = 45745-4] Goal Plan of Care Note [code = 43518-3] Goal Plan of Care Note [code = 23791-0] Goal Plan of Care Note [code = 76315-7] Goal Plan of Care Note [code = 04750-6] Goal Plan of Care Note [code = 23013-0] Goal Plan of Care Note [code = 30540-1] Goal Plan of Care Note [code = 08054-0] Goal Plan of Care Note [code = 80680-6] Goal Plan of Care Note [code = 30364-0] Goal Plan of Care Note [code = 97834-6] Goal Plan of Care Note [code = 84845-7] Goal Plan of Care Note [code = 70599-6] Goal Plan of Care Note [code = 40774-5] Goal Plan of Care Note [code = 12686-9] Goal Plan of Care Note [code = 75950-6] Goal Plan of Care Note [code = 89508-7] Goal Plan of Care Note [code = 37992-8] Goal Plan of Care Note [code = 81036-6] Goal Plan of Care Note [code = 54229-8] Goal Plan of Care Note [code = 83166-7] Goal Plan of Care Note [code = 61319-8] Goal Plan of Care Note [code = 14823-2] Goal Plan of Care Note [code = 57722-1] Goal Plan of Care Note [code = 00190-6] Goal Plan of Care Note [code = 08747-1] Goal Plan of Care Note [code = 29461-4] Goal Plan of Care Note [code = 71878-3] Goal Plan of Care Note [code = 17896-5] Goal Plan of Care Note [code = 61030-2] Goal Plan of Care Note [code = 34001-2] Goal Plan of Care Note [code = 80537-4] Goal Plan of Care Note [code = 61984-2] Goal Plan of Care Note [code = 78497-8] Goal Plan of Care Note [code = 84110-5] Goal Plan of Care Note [code = 54982-2] Goal Plan of Care Note [code = 06930-9] Goal Plan of Care Note [code = 59588-0] Goal Plan of Care Note [code = 16123-5] Goal Plan of Care Note [code = 18839-3] Goal Plan of Care Note [code = 96221-2] Goal Plan of Care Note [code = 22057-5] Goal Plan of Care Note [code = 00334-0] Goal Plan of Care Note [code = 87885-7] Goal Plan of Care Note [code = 70656-1] Goal Plan of Care Note [code = 91728-6] Goal Plan of Care Note [code = 21993-3] Goal Plan of Care Note [code = 29805-5] Goal Plan of Care Note [code = 54488-4] Goal Plan of Care Note [code = 45413-0] Goal Plan of Care Note [code = 22150-7] Goal Plan of Care Note [code = 52482-3] Goal Plan of Care Note [code = 11207-4] Goal Plan of Care Note [code = 15632-7] Goal Plan of Care Note [code = 92641-3] Goal Plan of Care Note [code = 70159-9] Goal Plan of Care Note [code = 06651-4] Goal Plan of Care Note [code = 10663-6] Goal Plan of Care Note [code = 36241-6] Goal Plan of Care Note [code = 97256-8] Goal Plan of Care Note [code = 69013-5] Goal Plan of Care Note [code = 54174-1] Goal Plan of Care Note [code = 63687-9] Goal Plan of Care Note [code = 93306-0] Goal Plan of Care Note [code = 70816-5] Goal Plan of Care Note [code = 12774-9] Goal Plan of Care Note [code = 81706-1] Goal Plan of Care Note [code = 80246-2] Goal Plan of Care Note [code = 82957-5] Goal Plan of Care Note [code = 54944-9] Goal Plan of Care Note [code = 91614-2] Goal Plan of Care Note [code = 22411-4] Goal Plan of Care Note [code = 73544-2] Goal Plan of Care Note [code = 46035-1] Goal Plan of Care Note [code = 90219-0] Encounters Start End Encounter Admission Attending Care Care Encounter Source Date/Time Date/Time Type Type Clinicians Facility Department ID 2022-11-10 2022-11-10 Outpatient [facility] [id number] Maurice 16:30:38 16:30:38 0106 F Elia 2022-11-10 2022-11-10 Outpatient [id number]-[id number] 00:00:00 00:00:00 Visit rn8f-2528 b5f-5833-1 -810f-d4a 10f-d4abbd uxen6psdj a4bbbd 2022-09-14 2022-09-14 Outpatient [facility] [id number] Maurice 17:09:48 17:09:48 1110 F Elia 2022-09-14 2022-09-14 Outpatient [id number]- [id number] gep7x7-8 00:00:00 00:00:00 Visit 8943-492d 943-492d-9 -61p9-86j 3m8-72r2a5 [id number] 92ec16 2022-08-18 2022-08-18 Outpatient [facility] [id number] Maurice 14:24:12 14:24:12 1014 F Elia 2022-08-18 2022-08-18 Outpatient [id number]- [id number] [id number] 00:00:00 00:00:00 Visit pk0b-8ovv w0s-9kui-i -wr51-9a4 r94-0j61k1 6h01s28c5 6b91e7 2022-06-26 2022-06-26 Outpatient [id number] 00rrj6-6 00:00:00 00:00:00 Visit 8707-1046 065-4527-a -o6l8-449 1x1-146n29 [id number] 25095e 2021-12-15 2021-12-15 Outpatient Jaskaran [facility] [id number] Univers 11:15:00 11:15:00 HEATHER young [facility] 2021-11-14 2021-11-14 [facility] [id number] Univers 10:45:00 11:25:15 HEATHER young [facility] 2021-11-14 2021-11-14 [facility] [id number] Univers 10:45:00 11:25:15 Visit Heather CARMONA 350.1.13.10 i ty [facility] [place] [id number] Nm dical NAL [address] [facility] 2021-11-14 2021-11-14 Outpatient R SYLVIE [facility] [id number] Univers 10:45:00 11:25:15 HEATHER young [facility] 2021-11-14 2021-11-14 Orders Doctor LIBERTAD [id number] Univers 00:00:00 00:00:00 Only Unassigned, DENNYS 350.1.13.[address] [address] [place] [facility] 4.2.7.2.686 Bill as [id number] [facility] [address] Branch 2021-11-07 2021-11-07 Transition CARLOS Monson [id number] Univers 00:00:00 00:00:00 of Care Felipa BALDWIN 350.1.13.10 [place]y of [place] [id number] [facility] 403 Branch 2021-11-02 2021-11-05 Inpatient X LESLEY [facility] [id number] Univers 15:28:00 14:30:00 GUZMAN young [facility] 2021-11-02 2021-11-05 Hospital Serenity Doe [facility] 1.2.840. [id number] Univers 15:28:00 14:30:00 Encounter Sandeep Shepherd 350.1.13.10 ity of [place] 4.2.7.2.686 [facility] [id number] [facility] 081 Branch 2019-07-01 2019-07-01 [facility] [id number] 20:04:11 21:35:00 Wiliam Carmona 350.1.13.10 [place] 4.2.7.2.686 [place] [id number] 2019-07-01 2019-07-01 Emergency Bhavik PRVANESA [id number] [facility] 20:04:11 21:35:00 Wiliam Carmona 350.1.13.10 ity of [place] 4.2.7.2.686 [facility] [id number] [facility] 084 Branch 2013-10-29 2013-10-29 Emergency ER , [employer] [id number] [place] 15:36:00 23:10:00 [facility] Results Test Description Test Time Test Comments Results Result Comments Source LIPID PANEL 2022-11-13 04:57:04 Test Item Value Reference Range Interpretation Comme nts CHOLESTEROL (test code = 2210) 206 MG/DL <200 H TRIGLYCERIDES (test code = 2232) 194 MG/DL <150 H HDL CHOLESTEROL (test code = 53 MG/DL >39 0) CALC LDL CHOL (test code = 2237) 122 MG/DL <100 H NOTE: CALCULATED LDL IS BASED ON WILLIAM-MARTINEZ METHOD WHICHINCLUDES A DJUSTABLE TRIGLYCERIDE:VL DL CHOLESTEROL RATIO.THIS FACT OR VARIES BY MEASURED TRIGLY CERIDE AND NON-HDLCHOLESTE ROL CONCENTRATIONS WITH INCREASED CALCULATED LDL SEENIN HIGHER T RIGLYCERIDE OR LOWER NON-HDL S PECIMENS. FOR MOREINFORMATION , SEE CLIENT ANNOUNCEMENT AT [email or web address] RISK RATIO LDL/HDL (test code = 2.30 RATIO <3.22 2237) COMPREHENSIVE METABOLIC [id number] 04:57:04 Test Item Value Reference Range Interpretation Comments GLUCOSE (test code = 184 MG/DL 70-99 H 2216) BUN (test code = 66 MG/DL 6-20 H 2207) CREATININE (test 1.87 MG/DL 0.60-1.30 H code = 2214) eGFR (2020 CKD-EPI) 31 >60 L (test code = 75276) ML/MIN/1.73 CALC BUN/CREAT (test 35 RATIO 6-28 H code = 2235) SODIUM (test code = 138 MEQ/L 788-186 4109) POTASSIUM (test code 5.0 MEQ/L 3.5-5.4 = 8) CHLORIDE (test code 100 MEQ/L 95-107 = 2215) CARBON DIOXIDE (test 20 MEQ/L 19-31 code = 2206) CALCIUM (test code = 11.0 MG/DL 8.5-10.5 H 2208) PROTEIN, TOTAL (test 7.7 G/DL 6.1-8.3 code = 2229) ALBUMIN (test code = 4.7 G/DL 3.5-5.2 2200) CALC GLOBULIN (test 3.0 G/DL 1.9-3.7 code = 2240) CALC A/G RATIO (test 1.6 RATIO 1.0-2.6 code = 2234) BILIRUBIN, TOTAL <0.2 MG/DL See_Comment [Automated message] (test code = 220) The [employer] which generated this result transmitted ref erence range: <=1.2. T he reference range was not used to int erpret this result as normal/abnormal . ALKALINE PHOSPHATASE 137 U/L 40-136 H (test code = 220) AST (test code = 17 U/L 9-40 2217) ALT (test code = 21 U/L 5-40 UNLESS OTH ERWISE 2218) INDICATED, ALL TESTING PERFORM ED ATCLINICAL PATH [facility], [facility]. [address] [place] [id number] [place] [address] DIRECTOR: Claude ISLASIA NUMBER [id number] CAP ACCREDITATION N O. [id number] HEMOGLOBIN [id number] 03:03:22 Test Item Value Reference Range Interpretation Comments HEMOGLOBIN A1c (test 10.6 % 4.2-5.6 H AMERIC AN DIABETES code = 73076) ASSOCIATION IDELINES FOR HGB A1C: PREDIABETES/INC REASED RISK . . . . . . . 5 .7-6.4% DIAGNOSIS OF DI ABETES . . . . . . . . . >=6 .5% WITH CONFIRMATION OR APPROPRIATE SYMPTOMS NOTE: ASSAY MAY BE AFFECTED BY HEMOGLOBINOPATH IES (SICKLE CELL ANEMIA, S- C DISEASE, OTHERS) OR MILA FICIALLY LOWERED BY DECR EASED RED CELL SURVIVAL ( HEMOLYTIC ANEMIAS, BLOOD LOSS, ETC.). CONSIDER ALTERN ATE TESTING OR LABORATORY C ONSULTATION. HEMOGLOBIN [id number] 05:15:03 Test Item Value Reference Range Interpretation Comments HEMOGLOBIN A1c (test 13.9 % 4.2-5.6 H [employer] AN DIABETES code = 57043) ASSOCIATION IDELINES FOR HGB A1C: PREDIABETES/INC REASED RISK . . . . . . . 5 .7-6.4% DIAGNOSIS OF DI ABETES . . . . . . . . . >=6 .5% WITH CONFIRMATION OR APPROPRIATE SYMPTOMS NOTE: ASSAY MAY BE AFFECTED BY HEMOGLOBINOPATH IES (SICKLE CELL ANEMIA, S- C DISEASE, OTHERS) OR MILA FICIALLY LOWERED BY DECR EASED RED CELL SURVIVAL ( HEMOLYTIC ANEMIAS, BLOOD LOSS, ETC.). CONSIDER ALTERN ATE TESTING OR LABORATORY C ONSULTATION. UNLESS OTHERWIS E INDICATED, ALL TESTING PER [facility], [facility]. [address] [place] [id number] LABORATORY DIRE CTOR: Sarita ISLAS. CLIA NUMBER [id number] CAP ACCREDITATION N O. [id number] HEMOGLOBIN [id number] 00:00:00 Test Item Value Reference Range Interpretation Comments HEMOGLOBIN A1c (test code = 93132) 13.9 % HEMOGLOBIN [id number] 00:00:00 Test Item Value Reference Range Interpretation Comments HEMOGLOBIN A1c (test code = 71723) 13.9 % HEMOGLOBIN [id number] 00:00:00 Test Item Value Reference Range Interpretation Comments HEMOGLOBIN A1c (test code = 30801) 13.9 % HEMOGLOBIN [id number] 00:00:00 Test Item Value Reference Range Interpretation Comments HEMOGLOBIN A1c (test code = 61796) 13.9 % HEMOGLOBIN [id number] 00:00:00 Test Item Value Reference Range Interpretation Comments HEMOGLOBIN A1c (test code = 88034) 13.9 % HEMOGLOBIN [id number] 00:00:00 Test Item Value Reference Range Interpretation Comments HEMOGLOBIN A1c (test code = 03957) 13.9 % COMPREHENSIVE METABOLIC [id number] 06:03:34 Test Item Value Reference Range Interpretation Comments GLUCOSE (test code = 72 MG/DL 70-99 2217) BUN (test code = 45 MG/DL 6-20 H 2207) CREATININE (test 1.24 MG/DL 0.60-1.30 code = 221) eGFR (2020 CKD-EPI) 51 >60 L (test code = 50186) ML/MIN/1.73 CALC BUN/CREAT (test 36 RATIO 6-28 H code = 2235) SODIUM (test code = 140 MEQ/L 474-846 9758) POTASSIUM (test code 4.5 MEQ/L 3.5-5.4 = 2227) CHLORIDE (test code 104 MEQ/L 95-107 = 2214) CARBON DIOXIDE (test 24 MEQ/L 19-31 code = 2206) CALCIUM (test code = 10.2 MG/DL 8.5-10.5 2208) PROTEIN, TOTAL (test 7.0 G/DL 6.1-8.3 code = 2228) ALBUMIN (test code = 4.2 G/DL 3.5-5.2 2200) CALC GLOBULIN (test 2.8 G/DL 1.9-3.7 code = 224) CALC A/G RATIO (test 1.5 RATIO 1.0-2.6 code = 223) BILIRUBIN, TOTAL <0.2 MG/DL See_Comment [Automated message] (test code = 220) The syste m which generated this result transmitted ref erence range: <=1.2. T he reference range was not used to int erpret this result as normal/abnormal . ALKALINE PHOSPHATASE 134 U/L 40-136 (test code = 2203) AST (test code = 23 U/L 9-40 2217) ALT (test code = 19 U/L 5-40 UNLESS OTH ERWISE 2218) INDICATED, ALL TESTING PERFORM [facility] [place] [place], [place] [id number] [place] [address] DIRECTOR: Claude ISLASIA NUMBER [id number] CAP ACCREDITATION N O. [id number] HEMOGLOBIN [id number] 05:25:13 Test Item Value Reference Range Interpretation Comments HEMOGLOBIN A1c (test 13.8 % 4.2-5.6 H [employer] AN DIABETES code = 93719) ASSOCIATION IDELINES FOR HGB A1C: PREDIABETES/INC REASED RISK . . . . . . . 5 .7-6.4% DIAGNOSIS OF DI ABETES . . . . . . . . . >=6 .5% WITH CONFIRMATION OR APPROPRIATE SYMPTOMS NOTE: ASSAY MAY BE AFFECTED BY HEMOGLOBINOPATH IES (SICKLE CELL ANEMIA, S- C DISEASE, OTHERS) OR MILA FICIALLY LOWERED BY DECR EASED RED CELL SURVIVAL ( HEMOLYTIC ANEMIAS, BLOOD LOSS, ETC.). CONSIDER ALTERN ATE TESTING OR LABORATORY C ONSULTATION. HEMOGLOBIN [id number] 00:00:00 Test Item Value Reference Range Interpretation Comments HEMOGLOBIN A1c (test code = 07218) 13.8 % HEMOGLOBIN [id number] 00:00:00 Test Item Value Reference Range Interpretation Comments HEMOGLOBIN A1c (test code = 48776) 13.8 % HEMOGLOBIN [id number] 00:00:00 Test Item Value Reference Range Interpretation Comments HEMOGLOBIN A1c (test code = 11274) 13.8 % COMPREHENSIVE METABOLIC [id number] 00:00:00 Test Item Value Reference Range Interpretation Comments GLUCOSE (test code = 2217) 72 MG/DL BUN (test code = 2208) 45 MG/DL CREATININE (test code = 2214) 1.24 MG/DL eGFR (2020 CKD-EPI) (test code 51 ML/MIN/1.73 = 19111) CALC BUN/CREAT (test code = 36 RATIO 5) SODIUM (test code = 2231) 140 MEQ/L POTASSIUM (test code = 2228) 4.5 MEQ/L CHLORIDE (test code = 2215) 104 MEQ/L CARBON DIOXIDE (test code = 24 MEQ/L 2205) CALCIUM (test code = 2209) 10.2 MG/DL PROTEIN, TOTAL (test code = 7.0 G/DL 2228) ALBUMIN (test code = 2201) 4.2 G/DL CALC GLOBULIN (test code = 2.8 G/DL 0) CALC A/G RATIO (test code = 1.5 RATIO 2234) BILIRUBIN, TOTAL (test code = <0.2 MG/DL 2206) ALKALINE PHOSPHATASE (test 134 U/L code = 2204) AST (test code = 2218) 23 U/L ALT (test code = 2219) 19 U/L COMPREHENSIVE METABOLIC [id number] 00:00:00 Test Item Value Reference Range Interpretation Comments GLUCOSE (test code = 2217) 72 MG/DL BUN (test code = 2208) 45 MG/DL CREATININE (test code = 2214) 1.24 MG/DL eGFR (2020 CKD-EPI) (test code 51 ML/MIN/1.73 = 58533) CALC BUN/CREAT (test code = 36 RATIO 2234) SODIUM (test code = 2231) 140 MEQ/L POTASSIUM (test code = 2228) 4.5 MEQ/L CHLORIDE (test code = 2215) 104 MEQ/L CARBON DIOXIDE (test code = 24 MEQ/L 2205) CALCIUM (test code = 2209) 10.2 MG/DL PROTEIN, TOTAL (test code = 7.0 G/DL 2228) ALBUMIN (test code = 220) 4.2 G/DL CALC GLOBULIN (test code = 2.8 G/DL 2239) CALC A/G RATIO (test code = 1.5 RATIO 2233) BILIRUBIN, TOTAL (test code = <0.2 MG/DL 2206) ALKALINE PHOSPHATASE (test 134 U/L code = 2204) AST (test code = 2218) 23 U/L ALT (test code = 2219) 19 U/L HEMOGLOBIN [id number] 00:00:00 Test Item Value Reference Range Interpretation Comments HEMOGLOBIN A1c (test code = 69621) 13.8 % HEMOGLOBIN [id number] 00:00:00 Test Item Value Reference Range Interpretation Comments HEMOGLOBIN A1c (test code = 96228) 13.8 % HEMOGLOBIN [id number] 00:00:00 Test Item Value Reference Range Interpretation Comments HEMOGLOBIN A1c (test code = 15755) 13.8 % COMPREHENSIVE METABOLIC [id number] 00:00:00 Test Item Value Reference Range Interpretation Comments GLUCOSE (test code = 2217) 72 MG/DL BUN (test code = 2208) 45 MG/DL CREATININE (test code = 2214) 1.24 MG/DL eGFR (2020 CKD-EPI) (test code 51 ML/MIN/1.73 = 53304) CALC BUN/CREAT (test code = 36 RATIO 2234) SODIUM (test code = 2231) 140 MEQ/L POTASSIUM (test code = 2228) 4.5 MEQ/L CHLORIDE (test code = 2215) 104 MEQ/L CARBON DIOXIDE (test code = 24 MEQ/L 2205) CALCIUM (test code = 2209) 10.2 MG/DL PROTEIN, TOTAL (test code = 7.0 G/DL 2228) ALBUMIN (test code = 2201) 4.2 G/DL CALC GLOBULIN (test code = 2.8 G/DL 2240) CALC A/G RATIO (test code = 1.5 RATIO 2234) BILIRUBIN, TOTAL (test code = <0.2 MG/DL 2206) ALKALINE PHOSPHATASE (test 134 U/L code = 2204) AST (test code = 2218) 23 U/L ALT (test code = 2219) 19 U/L COMPREHENSIVE METABOLIC [id number] 00:00:00 Test Item Value Reference Range Interpretation Comments GLUCOSE (test code = 2217) 72 MG/DL BUN (test code = 2208) 45 MG/DL CREATININE (test code = 2214) 1.24 MG/DL eGFR (2020 CKD-EPI) (test code 51 ML/MIN/1.73 = 34778) CALC BUN/CREAT (test code = 36 RATIO 2235) SODIUM (test code = 2231) 140 MEQ/L POTASSIUM (test code = 2228) 4.5 MEQ/L CHLORIDE (test code = 2215) 104 MEQ/L CARBON DIOXIDE (test code = 24 MEQ/L 2205) CALCIUM (test code = 2209) 10.2 MG/DL PROTEIN, TOTAL (test code = 7.0 G/DL 2228) ALBUMIN (test code = 2201) 4.2 G/DL CALC GLOBULIN (test code = 2.8 G/DL 2240) CALC A/G RATIO (test code = 1.5 RATIO 2234) BILIRUBIN, TOTAL (test code = <0.2 MG/DL 2206) ALKALINE PHOSPHATASE (test 134 U/L code = 2204) AST (test code = 2218) 23 U/L ALT (test code = 2219) 19 U/L HEMOGLOBIN [id number] 00:00:00 Test Item Value Reference Range Interpretation Comments HEMOGLOBIN A1c (test code = 68160) 13.8 % HEMOGLOBIN [id number] 00:00:00 Test Item Value Reference Range Interpretation Comments HEMOGLOBIN A1c (test code = 52614) 13.8 % HEMOGLOBIN [id number] 00:00:00 Test Item Value Reference Range Interpretation Comments HEMOGLOBIN A1c (test code = 87736) 13.8 % COMPREHENSIVE METABOLIC [id number] 00:00:00 Test Item Value Reference Range Interpretation Comments GLUCOSE (test code = 2217) 72 MG/DL BUN (test code = 2208) 45 MG/DL CREATININE (test code = 2214) 1.24 MG/DL eGFR (2020 CKD-EPI) (test code 51 ML/MIN/1.73 = 94084) CALC BUN/CREAT (test code = 36 RATIO 2235) SODIUM (test code = 2231) 140 MEQ/L POTASSIUM (test code = 2228) 4.5 MEQ/L CHLORIDE (test code = 2215) 104 MEQ/L CARBON DIOXIDE (test code = 24 MEQ/L 220) CALCIUM (test code = 2209) 10.2 MG/DL PROTEIN, TOTAL (test code = 7.0 G/DL 2228) ALBUMIN (test code = 2201) 4.2 G/DL CALC GLOBULIN (test code = 2.8 G/DL 2240) CALC A/G RATIO (test code = 1.5 RATIO 2234) BILIRUBIN, TOTAL (test code = <0.2 MG/DL 2206) ALKALINE PHOSPHATASE (test 134 U/L code = 2204) AST (test code = 2218) 23 U/L ALT (test code = 2219) 19 U/L COMPREHENSIVE METABOLIC [id number] 00:00:00 Test Item Value Reference Range Interpretation Comments GLUCOSE (test code = 2217) 72 MG/DL BUN (test code = 2208) 45 MG/DL CREATININE (test code = 2214) 1.24 MG/DL eGFR (2020 CKD-EPI) (test code 51 ML/MIN/1.73 = 81107) CALC BUN/CREAT (test code = 36 RATIO 2235) SODIUM (test code = 2231) 140 MEQ/L POTASSIUM (test code = 2228) 4.5 MEQ/L CHLORIDE (test code = 2215) 104 MEQ/L CARBON DIOXIDE (test code = 24 MEQ/L 220) CALCIUM (test code = 2209) 10.2 MG/DL PROTEIN, TOTAL (test code = 7.0 G/DL 2228) ALBUMIN (test code = 2201) 4.2 G/DL CALC GLOBULIN (test code = 2.8 G/DL 2240) CALC A/G RATIO (test code = 1.5 RATIO 2234) BILIRUBIN, TOTAL (test code = <0.2 MG/DL 2207) ALKALINE PHOSPHATASE (test 134 U/L code = 2204) AST (test code = 2218) 23 U/L ALT (test code = 2219) 19 U/L HIV 1/2 4TH GEN, RFLX [id number] 04:37:11 Test Item Value Reference Range Interpretation Comments HIV 1/2 4TH GEN, RFLX CONF (test NON-REACTIVE NON-REACTIVE code = 3514) HIV AB/AG COMBO RFLX [id number] 00:00:00 Test Item Value Reference Range Interpretation Comments HIV 1/2 4TH GEN, RFLX CONF (test NON-REACTIVE code = 3514) HIV AB/AG COMBO RFLX [id number] 00:00:00 Test Item Value Reference Range Interpretation Comments HIV 1/2 4TH GEN, RFLX CONF (test NON-REACTIVE code = 3514) HIV AB/AG COMBO RFLX [id number] 00:00:00 Test Item Value Reference Range Interpretation Comments HIV 1/2 4TH GEN, RFLX CONF (test NON-REACTIVE code = 3514) HIV AB/AG COMBO RFLX [id number] 00:00:00 Test Item Value Reference Range Interpretation Comments HIV 1/2 4TH GEN, RFLX CONF (test NON-REACTIVE code = 3514) HIV AB/AG COMBO RFLX [id number] 00:00:00 Test Item Value Reference Range Interpretation Comments HIV 1/2 4TH GEN, RFLX CONF (test NON-REACTIVE code = 3514) HIV AB/AG COMBO RFLX [id number] 00:00:00 Test Item Value Reference Range Interpretation Comments HIV 1/2 4TH GEN, RFLX CONF (test NON-REACTIVE code = 3514) HIV AB/AG COMBO RFLX [id number] 00:00:00 Test Item Value Reference Range Interpretation Comments HIV 1/2 4TH GEN, RFLX CONF (test NON-REACTIVE code = 3514) HIV AB/AG COMBO RFLX [id number] 00:00:00 Test Item Value Reference Range Interpretation Comments HIV 1/2 4TH GEN, RFLX CONF (test NON-REACTIVE code = 3514) ALBUMIN/CREATININE RATIO, URINE, [id number] 01:16:34 Test Item Value Reference Range Interpretation Comments CREATININE, URINE, 82.3 MG/DL NOT ESTAB RANDOM (test code = 2072) ALBUMIN, URINE, 10.4 MG/DL NOT ESTAB RANDOM (test code = 55009) CALC ALBUMIN/CREAT, 126 MG/G <30 H Note: RND (test code = Albumin/Cre atinine 68363) ratio reference interval reflec ts ADA and NKF guideli suzie. COMPREHENSIVE METABOLIC [id number] 00:35:57 Test Item Value Reference Range Interpretation Comments GLUCOSE (test code = 56 MG/DL 70-99 L 2216) BUN (test code = 39 MG/DL 6-20 H 2207) CREATININE (test 1.46 MG/DL 0.60-1.30 H code = 221) eGFR (2020 CKD-EPI) 42 ML/MIN/1.73 >60 L (test code = 16023) CALC BUN/CREAT (test 27 RATIO 6-28 code = 2235) SODIUM (test code = 141 MEQ/L 515-382 4916) POTASSIUM (test code 5.1 MEQ/L 3.5-5.4 = 2227) CHLORIDE (test code 103 MEQ/L 95-107 = 2214) CARBON DIOXIDE (test 22 MEQ/L 19-31 code = 220) CALCIUM (test code = 10.2 MG/DL 8.5-10.5 2208) PROTEIN, TOTAL (test 8.1 G/DL 6.1-8.3 code = 222) ALBUMIN (test code = 4.7 G/DL 3.5-5.2 2200) CALC GLOBULIN (test 3.4 G/DL 1.9-3.7 code = 2240) CALC A/G RATIO (test 1.4 RATIO 1.0-2.6 code = 2234) BILIRUBIN, TOTAL <0.2 MG/DL See_Comment [Automated message] (test code = 220) The syste m which generated this result transmit amanda reference range : <=1.2. The refe rence range was not u sed to interpret th is result as normal/abnormal . ALKALINE PHOSPHATASE 186 U/L 40-136 H (test code = 2204) AST (test code = 23 U/L 9-40 2217) ALT (test code = 24 U/L 5-40 2218) LIPID [id number] 00:35:57 Test Item Value Reference Range Interpretation Comments CHOLESTEROL (test 251 MG/DL <200 H code = 2210) TRIGLYCERIDES (test 79 MG/DL <150 code = 2232) HDL CHOLESTEROL (test 103 MG/DL >39 code = 2220) CALC LDL CHOL (test 130 MG/DL <100 H NOTE: C ALCULATED LDL code = 2237) IS BASED ON WILLIAM-MARTINEZ METHOD WHICHINCLUDES ADJUSTABLE TRIGLYCERIDE:VL DL CHOLESTEROL RAT IO.THIS FACTOR VARIES B Y MEASURED TRIGLY CERIDE AND NON-HDLCHOL ESTEROL CONCENTRATIONS WITH INCREASED CALCU LATED LDL SEENIN HIGH ER TRIGLYCERIDE OR LOWER NON-HDL SPECIME NS. FOR MOREINFORMATION , SEE CLIENT ANNOUNCE MENT AT [email or web address] RISK RATIO LDL/HDL 1.26 RATIO <3.22 UNLESS O THERWISE (test code = 2238) INDICATED , ALL TESTING PERFORMED [facility], [facility]. [address] [place] [id number] [place] [address] DIRECTOR: MARGI OCHOA M.D. IA NUMBER [id number] CAP ACCREDITATION N O. [id number] COMPREHENSIVE METABOLIC [id number] 00:00:00 Test Item Value Reference Range Interpretation Comments GLUCOSE (test code = 2217) 56 MG/DL BUN (test code = 2208) 39 MG/DL CREATININE (test code = 2214) 1.46 MG/DL eGFR (2020 CKD-EPI) (test code 42 ML/MIN/1.73 = 80721) CALC BUN/CREAT (test code = 27 RATIO 223) SODIUM (test code = 2231) 141 MEQ/L POTASSIUM (test code = 2228) 5.1 MEQ/L CHLORIDE (test code = 2215) 103 MEQ/L CARBON DIOXIDE (test code = 22 MEQ/L 2205) CALCIUM (test code = 2209) 10.2 MG/DL PROTEIN, TOTAL (test code = 8.1 G/DL 2228) ALBUMIN (test code = 2201) 4.7 G/DL CALC GLOBULIN (test code = 3.4 G/DL 2239) CALC A/G RATIO (test code = 1.4 RATIO 2233) BILIRUBIN, TOTAL (test code = <0.2 MG/DL 2206) ALKALINE PHOSPHATASE (test 186 U/L code = 2204) AST (test code = 2218) 23 U/L ALT (test code = 2219) 24 U/L MICROALBUMIN/CREATININE, RANDOM AND [id number] 00:00:00 Test Item Value Reference Range Interpretation Comments CREATININE, URINE, RANDOM (test 82.3 MG/DL code = 2072) ALBUMIN, URINE, RANDOM (test code 10.4 MG/DL = 93703) CALC ALBUMIN/CREAT, RND (test code 126 MG/G = 68315) MICROALBUMIN/CREATININE, RANDOM AND [id number] 00:00:00 Test Item Value Reference Range Interpretation Comments CREATININE, URINE, RANDOM (test 82.3 MG/DL code = 2072) ALBUMIN, URINE, RANDOM (test code 10.4 MG/DL = 89887) CALC ALBUMIN/CREAT, RND (test code 126 MG/G = 47811) LIPID [id number] 00:00:00 Test Item Value Reference Range Interpretation Comments CHOLESTEROL (test code = 2210) 251 MG/DL TRIGLYCERIDES (test code = 2232) 79 MG/DL HDL CHOLESTEROL (test code = 2220) 103 MG/DL CALC LDL CHOL (test code = 2237) 130 MG/DL RISK RATIO LDL/HDL (test code = 1.26 RATIO 2238) LIPID [id number] 00:00:00 Test Item Value Reference Range Interpretation Comments CHOLESTEROL (test code = 2210) 251 MG/DL TRIGLYCERIDES (test code = 2232) 79 MG/DL HDL CHOLESTEROL (test code = 2220) 103 MG/DL CALC LDL CHOL (test code = 2237) 130 MG/DL RISK RATIO LDL/HDL (test code = 1.26 RATIO 2238) COMPREHENSIVE METABOLIC [id number] 00:00:00 Test Item Value Reference Range Interpretation Comments GLUCOSE (test code = 2217) 56 MG/DL BUN (test code = 2208) 39 MG/DL CREATININE (test code = 2214) 1.46 MG/DL eGFR (2020 CKD-EPI) (test code 42 ML/MIN/1.73 = 93837) CALC BUN/CREAT (test code = 27 RATIO 2235) SODIUM (test code = 2231) 141 MEQ/L POTASSIUM (test code = 2228) 5.1 MEQ/L CHLORIDE (test code = 2215) 103 MEQ/L CARBON DIOXIDE (test code = 22 MEQ/L 2205) CALCIUM (test code = 2209) 10.2 MG/DL PROTEIN, TOTAL (test code = 8.1 G/DL 2228) ALBUMIN (test code = 2201) 4.7 G/DL CALC GLOBULIN (test code = 3.4 G/DL 2240) CALC A/G RATIO (test code = 1.4 RATIO 2234) BILIRUBIN, TOTAL (test code = <0.2 MG/DL 2206) ALKALINE PHOSPHATASE (test 186 U/L code = 2204) AST (test code = 2218) 23 U/L ALT (test code = 2219) 24 U/L COMPREHENSIVE METABOLIC [id number] 00:00:00 Test Item Value Reference Range Interpretation Comments GLUCOSE (test code = 2217) 56 MG/DL BUN (test code = 2208) 39 MG/DL CREATININE (test code = 2214) 1.46 MG/DL eGFR (2020 CKD-EPI) (test code 42 ML/MIN/1.73 = 67107) CALC BUN/CREAT (test code = 27 RATIO 2235) SODIUM (test code = 2231) 141 MEQ/L POTASSIUM (test code = 2228) 5.1 MEQ/L CHLORIDE (test code = 2215) 103 MEQ/L CARBON DIOXIDE (test code = 22 MEQ/L 2205) CALCIUM (test code = 2209) 10.2 MG/DL PROTEIN, TOTAL (test code = 8.1 G/DL 2228) ALBUMIN (test code = 2201) 4.7 G/DL CALC GLOBULIN (test code = 3.4 G/DL 2240) CALC A/G RATIO (test code = 1.4 RATIO 2234) BILIRUBIN, TOTAL (test code = <0.2 MG/DL 2206) ALKALINE PHOSPHATASE (test 186 U/L code = 2204) AST (test code = 2218) 23 U/L ALT (test code = 2219) 24 U/L MICROALBUMIN/CREATININE, RANDOM AND [id number] 00:00:00 Test Item Value Reference Range Interpretation Comments CREATININE, URINE, RANDOM (test 82.3 MG/DL code = 2072) ALBUMIN, URINE, RANDOM (test code 10.4 MG/DL = 81138) CALC ALBUMIN/CREAT, RND (test code 126 MG/G = 63714) MICROALBUMIN/CREATININE, RANDOM AND [id number] 00:00:00 Test Item Value Reference Range Interpretation Comments CREATININE, URINE, RANDOM (test 82.3 MG/DL code = 2072) ALBUMIN, URINE, RANDOM (test code 10.4 MG/DL = 70239) CALC ALBUMIN/CREAT, RND (test code 126 MG/G = 50668) LIPID [id number] 00:00:00 Test Item Value Reference Range Interpretation Comments CHOLESTEROL (test code = 2210) 251 MG/DL TRIGLYCERIDES (test code = 2232) 79 MG/DL HDL CHOLESTEROL (test code = 2220) 103 MG/DL CALC LDL CHOL (test code = 2237) 130 MG/DL RISK RATIO LDL/HDL (test code = 1.26 RATIO 2238) LIPID [id number] 00:00:00 Test Item Value Reference Range Interpretation Comments CHOLESTEROL (test code = 2210) 251 MG/DL TRIGLYCERIDES (test code = 2232) 79 MG/DL HDL CHOLESTEROL (test code = 2220) 103 MG/DL CALC LDL CHOL (test code = 2237) 130 MG/DL RISK RATIO LDL/HDL (test code = 1.26 RATIO 2238) COMPREHENSIVE METABOLIC [id number] 00:00:00 Test Item Value Reference Range Interpretation Comments GLUCOSE (test code = 2217) 56 MG/DL BUN (test code = 2208) 39 MG/DL CREATININE (test code = 2214) 1.46 MG/DL eGFR (2020 CKD-EPI) (test code 42 ML/MIN/1.73 = 19488) CALC BUN/CREAT (test code = 27 RATIO 2235) SODIUM (test code = 2231) 141 MEQ/L POTASSIUM (test code = 2228) 5.1 MEQ/L CHLORIDE (test code = 2215) 103 MEQ/L CARBON DIOXIDE (test code = 22 MEQ/L 2205) CALCIUM (test code = 2209) 10.2 MG/DL PROTEIN, TOTAL (test code = 8.1 G/DL 2228) ALBUMIN (test code = 220) 4.7 G/DL CALC GLOBULIN (test code = 3.4 G/DL 2239) CALC A/G RATIO (test code = 1.4 RATIO 2234) BILIRUBIN, TOTAL (test code = <0.2 MG/DL 2207) ALKALINE PHOSPHATASE (test 186 U/L code = 2204) AST (test code = 2218) 23 U/L ALT (test code = 2219) 24 U/L COMPREHENSIVE METABOLIC [id number] 00:00:00 Test Item Value Reference Range Interpretation Comments GLUCOSE (test code = 2217) 56 MG/DL BUN (test code = 2208) 39 MG/DL CREATININE (test code = 2214) 1.46 MG/DL eGFR (2020 CKD-EPI) (test code 42 ML/MIN/1.73 = 76408) CALC BUN/CREAT (test code = 27 RATIO 2235) SODIUM (test code = 2231) 141 MEQ/L POTASSIUM (test code = 2228) 5.1 MEQ/L CHLORIDE (test code = 2215) 103 MEQ/L CARBON DIOXIDE (test code = 22 MEQ/L 2205) CALCIUM (test code = 2209) 10.2 MG/DL PROTEIN, TOTAL (test code = 8.1 G/DL 2228) ALBUMIN (test code = 2201) 4.7 G/DL CALC GLOBULIN (test code = 3.4 G/DL 2240) CALC A/G RATIO (test code = 1.4 RATIO 2234) BILIRUBIN, TOTAL (test code = <0.2 MG/DL 2206) ALKALINE PHOSPHATASE (test 186 U/L code = 2204) AST (test code = 2218) 23 U/L ALT (test code = 2219) 24 U/L MICROALBUMIN/CREATININE, RANDOM AND [id number] 00:00:00 Test Item Value Reference Range Interpretation Comments CREATININE, URINE, RANDOM (test 82.3 MG/DL code = 2072) ALBUMIN, URINE, RANDOM (test code 10.4 MG/DL = 04947) CALC ALBUMIN/CREAT, RND (test code 126 MG/G = 58453) MICROALBUMIN/CREATININE, RANDOM AND [id number] 00:00:00 Test Item Value Reference Range Interpretation Comments CREATININE, URINE, RANDOM (test 82.3 MG/DL code = 2072) ALBUMIN, URINE, RANDOM (test code 10.4 MG/DL = 53636) CALC ALBUMIN/CREAT, RND (test code 126 MG/G = 54263) LIPID [id number] 00:00:00 Test Item Value Reference Range Interpretation Comments CHOLESTEROL (test code = 2210) 251 MG/DL TRIGLYCERIDES (test code = 2232) 79 MG/DL HDL CHOLESTEROL (test code = 2220) 103 MG/DL CALC LDL CHOL (test code = 2237) 130 MG/DL RISK RATIO LDL/HDL (test code = 1.26 RATIO 2238) LIPID [id number] 00:00:00 Test Item Value Reference Range Interpretation Comments CHOLESTEROL (test code = 2210) 251 MG/DL TRIGLYCERIDES (test code = 2232) 79 MG/DL HDL CHOLESTEROL (test code = 2220) 103 MG/DL CALC LDL CHOL (test code = 2237) 130 MG/DL RISK RATIO LDL/HDL (test code = 1.26 RATIO 2238) COMPREHENSIVE METABOLIC [id number] 00:00:00 Test Item Value Reference Range Interpretation Comments GLUCOSE (test code = 2217) 56 MG/DL BUN (test code = 2208) 39 MG/DL CREATININE (test code = 2214) 1.46 MG/DL eGFR (2020 CKD-EPI) (test code 42 ML/MIN/1.73 = 00385) CALC BUN/CREAT (test code = 27 RATIO 2235) SODIUM (test code = 2231) 141 MEQ/L POTASSIUM (test code = 2228) 5.1 MEQ/L CHLORIDE (test code = 2215) 103 MEQ/L CARBON DIOXIDE (test code = 22 MEQ/L 2205) CALCIUM (test code = 2209) 10.2 MG/DL PROTEIN, TOTAL (test code = 8.1 G/DL 2228) ALBUMIN (test code = 2201) 4.7 G/DL CALC GLOBULIN (test code = 3.4 G/DL 2240) CALC A/G RATIO (test code = 1.4 RATIO 2234) BILIRUBIN, TOTAL (test code = <0.2 MG/DL 2206) ALKALINE PHOSPHATASE (test 186 U/L code = 2204) AST (test code = 2218) 23 U/L ALT (test code = 2219) 24 U/L COMPREHENSIVE METABOLIC [id number] 00:00:00 Test Item Value Reference Range Interpretation Comments GLUCOSE (test code = 2217) 56 MG/DL BUN (test code = 2208) 39 MG/DL CREATININE (test code = 2214) 1.46 MG/DL eGFR (2020 CKD-EPI) (test code 42 ML/MIN/1.73 = 80054) CALC BUN/CREAT (test code = 27 RATIO 2235) SODIUM (test code = 2231) 141 MEQ/L POTASSIUM (test code = 2228) 5.1 MEQ/L CHLORIDE (test code = 2215) 103 MEQ/L CARBON DIOXIDE (test code = 22 MEQ/L 220) CALCIUM (test code = 2209) 10.2 MG/DL PROTEIN, TOTAL (test code = 8.1 G/DL 2228) ALBUMIN (test code = 2201) 4.7 G/DL CALC GLOBULIN (test code = 3.4 G/DL 224) CALC A/G RATIO (test code = 1.4 RATIO 2234) BILIRUBIN, TOTAL (test code = <0.2 MG/DL 2206) ALKALINE PHOSPHATASE (test 186 U/L code = 2204) AST (test code = 2218) 23 U/L ALT (test code = 2219) 24 U/L MICROALBUMIN/CREATININE, RANDOM AND [id number] 00:00:00 Test Item Value Reference Range Interpretation Comments CREATININE, URINE, RANDOM (test 82.3 MG/DL code = 2072) ALBUMIN, URINE, RANDOM (test code 10.4 MG/DL = 74733) CALC ALBUMIN/CREAT, RND (test code 126 MG/G = 62158) MICROALBUMIN/CREATININE, RANDOM AND [id number] 00:00:00 Test Item Value Reference Range Interpretation Comments CREATININE, URINE, RANDOM (test 82.3 MG/DL code = 2072) ALBUMIN, URINE, RANDOM (test code 10.4 MG/DL = 72961) CALC ALBUMIN/CREAT, RND (test code 126 MG/G = 65950) LIPID [id number] 00:00:00 Test Item Value Reference Range Interpretation Comments CHOLESTEROL (test code = 2210) 251 MG/DL TRIGLYCERIDES (test code = 2232) 79 MG/DL HDL CHOLESTEROL (test code = 2220) 103 MG/DL CALC LDL CHOL (test code = 2237) 130 MG/DL RISK RATIO LDL/HDL (test code = 1.26 RATIO 2238) LIPID [id number] 00:00:00 Test Item Value Reference Range Interpretation Comments CHOLESTEROL (test code = 2210) 251 MG/DL TRIGLYCERIDES (test code = 2232) 79 MG/DL HDL CHOLESTEROL (test code = 2220) 103 MG/DL CALC LDL CHOL (test code = 2237) 130 MG/DL RISK RATIO LDL/HDL (test code = 1.26 RATIO 2238) COMPREHENSIVE METABOLIC [id number] 00:00:00 Test Item Value Reference Range Interpretation Comments GLUCOSE (test code = 2217) 56 MG/DL BUN (test code = 2208) 39 MG/DL CREATININE (test code = 2214) 1.46 MG/DL eGFR (2020 CKD-EPI) (test code 42 ML/MIN/1.73 = 28841) CALC BUN/CREAT (test code = 27 RATIO 2235) SODIUM (test code = 2231) 141 MEQ/L POTASSIUM (test code = 2228) 5.1 MEQ/L CHLORIDE (test code = 2215) 103 MEQ/L CARBON DIOXIDE (test code = 22 MEQ/L 2205) CALCIUM (test code = 2209) 10.2 MG/DL PROTEIN, TOTAL (test code = 8.1 G/DL 2228) ALBUMIN (test code = 2201) 4.7 G/DL CALC GLOBULIN (test code = 3.4 G/DL 2239) CALC A/G RATIO (test code = 1.4 RATIO 2234) BILIRUBIN, TOTAL (test code = <0.2 MG/DL 2206) ALKALINE PHOSPHATASE (test 186 U/L code = 2204) AST (test code = 2218) 23 U/L ALT (test code = 2219) 24 U/L HEMOGLOBIN [id number] 03:34:07 Test Item Value Reference Range Interpretation Comments HEMOGLOBIN A1c (test 10.0 % 4.2-5.6 H [employer] AN DIABETES code = 34577) ASSOCIATION IDELINES FOR HGB A1C: PREDIABETES/INC REASED RISK . . . . . . . 5 .7-6.4% DIAGNOSIS OF DI ABETES . . . . . . . . . >=6 .5% WITH CONFIRMATION OR APPROPRIATE SYMPTOMS NOTE: ASSAY MAY BE AFFECTED BY HEMOGLOBINOPATH IES (SICKLE CELL ANEMIA, S- C DISEASE, OTHERS) OR MILA FICIALLY LOWERED BY DECR EASED RED CELL SURVIVAL ( HEMOLYTIC ANEMIAS, BLOOD LOSS, ETC.). CONSIDER ALTERN ATE TESTING OR LABORATORY C ONSULTATION. CBC W/AUTO DIFF WITH [id number] 02:45:06 Test Item Value Reference Range Interpretation Comments WBC (test code = 9.6 K/UL 3.5-11.0 1001) RBC (test code = 3.58 M/UL 3.80-5.40 L 1002) HEMOGLOBIN (test code 10.3 G/DL 11.5-15.5 L = 1003) HEMATOCRIT (test code 30.3 % 34.0-45.0 L = 1004) MCV (test code = 84.6 fL 80.0-99.0 1005) MCH (test code = 28.8 PG 25.0-33.0 1006) MCHC (test code = 34.0 G/DL 31.0-36.0 1007) RDW (test code = 13.6 % 11.5-15.0 1038) NEUTROPHILS (test 61.0 % code = 1008) LYMPHOCYTES (test 28.8 % code = 1010) MONOCYTES (test code 6.4 % = 1011) EOSINOPHILS (test 2.5 % code = 1012) BASOPHILS (test code 1.0 % = 1013) IMMATURE GRANULOCYTES 0.3 % (test code = 1036) NUCLEATED RBCS (test 0.0 /100 WBC'S See_Comment [Aut omated code = 1065) message] The sy stem which generated this result transmitted reference range : 0.0. The refere nce range was not u sed to interpret th is result as normal/abnormal . PLATELET COUNT (test 376 K/UL 130-400 code = 1015) ABSOLUTE NEUTROPHILS 5.82 K/UL 1.50-7.50 (test code = 1066) ABSOLUTE LYMPHOCYTES 2.75 K/UL 1.00-4.00 (test code = 1067) ABSOLUTE MONOCYTES 0.61 K/UL 0.20-1.00 (test code = 1068) ABSOLUTE EOSINOPHILS 0.24 K/UL 0.00-0.50 (test code = 1040) ABSOLUTE BASOPHILS 0.10 K/UL 0.00-0.20 (test code = 1069) ABS IMMATURE 0.03 K/UL 0.00-0.10 GRANULOCYTES (test code = 1020) ABS NUCLEATED RBCS 0.00 K/UL 0.00-0.11 (test code = 22409) CBC W/AUTO [id number] 00:00:00 Test Item Value Reference Range Interpretation Comments WBC (test code = 1001) 9.6 K/UL RBC (test code = 1002) 3.58 M/UL HEMOGLOBIN (test code = 1003) 10.3 G/DL HEMATOCRIT (test code = 1004) 30.3 % MCV (test code = 1005) 84.6 fL MCH (test code = 1006) 28.8 PG MCHC (test code = 1007) 34.0 G/DL RDW (test code = 1038) 13.6 % NEUTROPHILS (test code = 1008) 61.0 % LYMPHOCYTES (test code = 1010) 28.8 % MONOCYTES (test code = 1011) 6.4 % EOSINOPHILS (test code = 1012) 2.5 % BASOPHILS (test code = 1013) 1.0 % IMMATURE GRANULOCYTES (test 0.3 % code = 1036) NUCLEATED RBCS (test code = 0.0 /100WBC'S 1065) PLATELET COUNT (test code = 376 K/UL 1015) ABSOLUTE NEUTROPHILS (test code 5.82 K/UL = 1066) ABSOLUTE LYMPHOCYTES (test code 2.75 K/UL = 1067) ABSOLUTE MONOCYTES (test code = 0.61 K/UL 1068) ABSOLUTE EOSINOPHILS (test code 0.24 K/UL = 1040) ABSOLUTE BASOPHILS (test code = 0.10 K/UL 1069) ABS IMMATURE GRANULOCYTES (test 0.03 K/UL code = 1020) ABS NUCLEATED RBCS (test code = 0.00 K/UL 55219) CBC W/AUTO [id number] 00:00:00 Test Item Value Reference Range Interpretation Comments WBC (test code = 1001) 9.6 K/UL RBC (test code = 1002) 3.58 M/UL HEMOGLOBIN (test code = 1003) 10.3 G/DL HEMATOCRIT (test code = 1004) 30.3 % MCV (test code = 1005) 84.6 fL MCH (test code = 1006) 28.8 PG MCHC (test code = 1007) 34.0 G/DL RDW (test code = 1038) 13.6 % NEUTROPHILS (test code = 1008) 61.0 % LYMPHOCYTES (test code = 1010) 28.8 % MONOCYTES (test code = 1011) 6.4 % EOSINOPHILS (test code = 1012) 2.5 % BASOPHILS (test code = 1013) 1.0 % IMMATURE GRANULOCYTES (test 0.3 % code = 1036) NUCLEATED RBCS (test code = 0.0 /100WBC'S 1065) PLATELET COUNT (test code = 376 K/UL 1015) ABSOLUTE NEUTROPHILS (test code 5.82 K/UL = 1066) ABSOLUTE LYMPHOCYTES (test code 2.75 K/UL = 1067) ABSOLUTE MONOCYTES (test code = 0.61 K/UL 1068) ABSOLUTE EOSINOPHILS (test code 0.24 K/UL = 1040) ABSOLUTE BASOPHILS (test code = 0.10 K/UL 1069) ABS IMMATURE GRANULOCYTES (test 0.03 K/UL code = 1020) ABS NUCLEATED RBCS (test code = 0.00 K/UL 66858) CBC W/AUTO [id number] 00:00:00 Test Item Value Reference Range Interpretation Comments WBC (test code = 1001) 9.6 K/UL RBC (test code = 1002) 3.58 M/UL HEMOGLOBIN (test code = 1003) 10.3 G/DL HEMATOCRIT (test code = 1004) 30.3 % MCV (test code = 1005) 84.6 fL MCH (test code = 1006) 28.8 PG MCHC (test code = 1007) 34.0 G/DL RDW (test code = 1038) 13.6 % NEUTROPHILS (test code = 1008) 61.0 % LYMPHOCYTES (test code = 1010) 28.8 % MONOCYTES (test code = 1011) 6.4 % EOSINOPHILS (test code = 1012) 2.5 % BASOPHILS (test code = 1013) 1.0 % IMMATURE GRANULOCYTES (test 0.3 % code = 1036) NUCLEATED RBCS (test code = 0.0 /100WBC'S 1065) PLATELET COUNT (test code = 376 K/UL 1015) ABSOLUTE NEUTROPHILS (test code 5.82 K/UL = 1066) ABSOLUTE LYMPHOCYTES (test code 2.75 K/UL = 1067) ABSOLUTE MONOCYTES (test code = 0.61 K/UL 1068) ABSOLUTE EOSINOPHILS (test code 0.24 K/UL = 1040) ABSOLUTE BASOPHILS (test code = 0.10 K/UL 1069) ABS IMMATURE GRANULOCYTES (test 0.03 K/UL code = 1020) ABS NUCLEATED RBCS (test code = 0.00 K/UL 38868) HEMOGLOBIN [id number] 00:00:00 Test Item Value Reference Range Interpretation Comments HEMOGLOBIN A1c (test code = 84080) 10.0 % HEMOGLOBIN [id number] 00:00:00 Test Item Value Reference Range Interpretation Comments HEMOGLOBIN A1c (test code = 74101) 10.0 % HEMOGLOBIN [id number] 00:00:00 Test Item Value Reference Range Interpretation Comments HEMOGLOBIN A1c (test code = 19402) 10.0 % CBC W/AUTO [id number] 00:00:00 Test Item Value Reference Range Interpretation Comments WBC (test code = 1001) 9.6 K/UL RBC (test code = 1002) 3.58 M/UL HEMOGLOBIN (test code = 1003) 10.3 G/DL HEMATOCRIT (test code = 1004) 30.3 % MCV (test code = 1005) 84.6 fL MCH (test code = 1006) 28.8 PG MCHC (test code = 1007) 34.0 G/DL RDW (test code = 1038) 13.6 % NEUTROPHILS (test code = 1008) 61.0 % LYMPHOCYTES (test code = 1010) 28.8 % MONOCYTES (test code = 1011) 6.4 % EOSINOPHILS (test code = 1012) 2.5 % BASOPHILS (test code = 1013) 1.0 % IMMATURE GRANULOCYTES (test 0.3 % code = 1036) NUCLEATED RBCS (test code = 0.0 /100WBC'S 1065) PLATELET COUNT (test code = 376 K/UL 1015) ABSOLUTE NEUTROPHILS (test code 5.82 K/UL = 1066) ABSOLUTE LYMPHOCYTES (test code 2.75 K/UL = 1067) ABSOLUTE MONOCYTES (test code = 0.61 K/UL 1068) ABSOLUTE EOSINOPHILS (test code 0.24 K/UL = 1040) ABSOLUTE BASOPHILS (test code = 0.10 K/UL 1069) ABS IMMATURE GRANULOCYTES (test 0.03 K/UL code = 1020) ABS NUCLEATED RBCS (test code = 0.00 K/UL 58784) CBC W/AUTO [id number] 00:00:00 Test Item Value Reference Range Interpretation Comments WBC (test code = 1001) 9.6 K/UL RBC (test code = 1002) 3.58 M/UL HEMOGLOBIN (test code = 1003) 10.3 G/DL HEMATOCRIT (test code = 1004) 30.3 % MCV (test code = 1005) 84.6 fL MCH (test code = 1006) 28.8 PG MCHC (test code = 1007) 34.0 G/DL RDW (test code = 1038) 13.6 % NEUTROPHILS (test code = 1008) 61.0 % LYMPHOCYTES (test code = 1010) 28.8 % MONOCYTES (test code = 1011) 6.4 % EOSINOPHILS (test code = 1012) 2.5 % BASOPHILS (test code = 1013) 1.0 % IMMATURE GRANULOCYTES (test 0.3 % code = 1036) NUCLEATED RBCS (test code = 0.0 /100WBC'S 1065) PLATELET COUNT (test code = 376 K/UL 1015) ABSOLUTE NEUTROPHILS (test code 5.82 K/UL = 1066) ABSOLUTE LYMPHOCYTES (test code 2.75 K/UL = 1067) ABSOLUTE MONOCYTES (test code = 0.61 K/UL 1068) ABSOLUTE EOSINOPHILS (test code 0.24 K/UL = 1040) ABSOLUTE BASOPHILS (test code = 0.10 K/UL 1069) ABS IMMATURE GRANULOCYTES (test 0.03 K/UL code = 1020) ABS NUCLEATED RBCS (test code = 0.00 K/UL 08101) CBC W/AUTO [id number] 00:00:00 Test Item Value Reference Range Interpretation Comments WBC (test code = 1001) 9.6 K/UL RBC (test code = 1002) 3.58 M/UL HEMOGLOBIN (test code = 1003) 10.3 G/DL HEMATOCRIT (test code = 1004) 30.3 % MCV (test code = 1005) 84.6 fL MCH (test code = 1006) 28.8 PG MCHC (test code = 1007) 34.0 G/DL RDW (test code = 1038) 13.6 % NEUTROPHILS (test code = 1008) 61.0 % LYMPHOCYTES (test code = 1010) 28.8 % MONOCYTES (test code = 1011) 6.4 % EOSINOPHILS (test code = 1012) 2.5 % BASOPHILS (test code = 1013) 1.0 % IMMATURE GRANULOCYTES (test 0.3 % code = 1036) NUCLEATED RBCS (test code = 0.0 /100WBC'S 1065) PLATELET COUNT (test code = 376 K/UL 1015) ABSOLUTE NEUTROPHILS (test code 5.82 K/UL = 1066) ABSOLUTE LYMPHOCYTES (test code 2.75 K/UL = 1067) ABSOLUTE MONOCYTES (test code = 0.61 K/UL 1068) ABSOLUTE EOSINOPHILS (test code 0.24 K/UL = 1040) ABSOLUTE BASOPHILS (test code = 0.10 K/UL 1069) ABS IMMATURE GRANULOCYTES (test 0.03 K/UL code = 1020) ABS NUCLEATED RBCS (test code = 0.00 K/UL 31311) HEMOGLOBIN [id number] 00:00:00 Test Item Value Reference Range Interpretation Comments HEMOGLOBIN A1c (test code = 26293) 10.0 % HEMOGLOBIN [id number] 00:00:00 Test Item Value Reference Range Interpretation Comments HEMOGLOBIN A1c (test code = 42620) 10.0 % HEMOGLOBIN [id number] 00:00:00 Test Item Value Reference Range Interpretation Comments HEMOGLOBIN A1c (test code = 12265) 10.0 % CBC W/AUTO [id number] 00:00:00 Test Item Value Reference Range Interpretation Comments WBC (test code = 1001) 9.6 K/UL RBC (test code = 1002) 3.58 M/UL HEMOGLOBIN (test code = 1003) 10.3 G/DL HEMATOCRIT (test code = 1004) 30.3 % MCV (test code = 1005) 84.6 fL MCH (test code = 1006) 28.8 PG MCHC (test code = 1007) 34.0 G/DL RDW (test code = 1038) 13.6 % NEUTROPHILS (test code = 1008) 61.0 % LYMPHOCYTES (test code = 1010) 28.8 % MONOCYTES (test code = 1011) 6.4 % EOSINOPHILS (test code = 1012) 2.5 % BASOPHILS (test code = 1013) 1.0 % IMMATURE GRANULOCYTES (test 0.3 % code = 1036) NUCLEATED RBCS (test code = 0.0 /100WBC'S 1065) PLATELET COUNT (test code = 376 K/UL 1015) ABSOLUTE NEUTROPHILS (test code 5.82 K/UL = 1066) ABSOLUTE LYMPHOCYTES (test code 2.75 K/UL = 1067) ABSOLUTE MONOCYTES (test code = 0.61 K/UL 1068) ABSOLUTE EOSINOPHILS (test code 0.24 K/UL = 1040) ABSOLUTE BASOPHILS (test code = 0.10 K/UL 1069) ABS IMMATURE GRANULOCYTES (test 0.03 K/UL code = 1020) ABS NUCLEATED RBCS (test code = 0.00 K/UL 03254) CBC W/AUTO [id number] 00:00:00 Test Item Value Reference Range Interpretation Comments WBC (test code = 1001) 9.6 K/UL RBC (test code = 1002) 3.58 M/UL HEMOGLOBIN (test code = 1003) 10.3 G/DL HEMATOCRIT (test code = 1004) 30.3 % MCV (test code = 1005) 84.6 fL MCH (test code = 1006) 28.8 PG MCHC (test code = 1007) 34.0 G/DL RDW (test code = 1038) 13.6 % NEUTROPHILS (test code = 1008) 61.0 % LYMPHOCYTES (test code = 1010) 28.8 % MONOCYTES (test code = 1011) 6.4 % EOSINOPHILS (test code = 1012) 2.5 % BASOPHILS (test code = 1013) 1.0 % IMMATURE GRANULOCYTES (test 0.3 % code = 1036) NUCLEATED RBCS (test code = 0.0 /100WBC'S 1065) PLATELET COUNT (test code = 376 K/UL 1015) ABSOLUTE NEUTROPHILS (test code 5.82 K/UL = 1066) ABSOLUTE LYMPHOCYTES (test code 2.75 K/UL = 1067) ABSOLUTE MONOCYTES (test code = 0.61 K/UL 1068) ABSOLUTE EOSINOPHILS (test code 0.24 K/UL = 1040) ABSOLUTE BASOPHILS (test code = 0.10 K/UL 1069) ABS IMMATURE GRANULOCYTES (test 0.03 K/UL code = 1020) ABS NUCLEATED RBCS (test code = 0.00 K/UL 19565) CBC W/AUTO [id number] 00:00:00 Test Item Value Reference Range Interpretation Comments WBC (test code = 1001) 9.6 K/UL RBC (test code = 1002) 3.58 M/UL HEMOGLOBIN (test code = 1003) 10.3 G/DL HEMATOCRIT (test code = 1004) 30.3 % MCV (test code = 1005) 84.6 fL MCH (test code = 1006) 28.8 PG MCHC (test code = 1007) 34.0 G/DL RDW (test code = 1038) 13.6 % NEUTROPHILS (test code = 1008) 61.0 % LYMPHOCYTES (test code = 1010) 28.8 % MONOCYTES (test code = 1011) 6.4 % EOSINOPHILS (test code = 1012) 2.5 % BASOPHILS (test code = 1013) 1.0 % IMMATURE GRANULOCYTES (test 0.3 % code = 1036) NUCLEATED RBCS (test code = 0.0 /100WBC'S 1065) PLATELET COUNT (test code = 376 K/UL 1015) ABSOLUTE NEUTROPHILS (test code 5.82 K/UL = 1066) ABSOLUTE LYMPHOCYTES (test code 2.75 K/UL = 1067) ABSOLUTE MONOCYTES (test code = 0.61 K/UL 1068) ABSOLUTE EOSINOPHILS (test code 0.24 K/UL = 1040) ABSOLUTE BASOPHILS (test code = 0.10 K/UL 1069) ABS IMMATURE GRANULOCYTES (test 0.03 K/UL code = 1020) ABS NUCLEATED RBCS (test code = 0.00 K/UL 12654) HEMOGLOBIN [id number] 00:00:00 Test Item Value Reference Range Interpretation Comments HEMOGLOBIN A1c (test code = 28886) 10.0 % HEMOGLOBIN [id number] 00:00:00 Test Item Value Reference Range Interpretation Comments HEMOGLOBIN A1c (test code = 79729) 10.0 % HEMOGLOBIN [id number] 00:00:00 Test Item Value Reference Range Interpretation Comments HEMOGLOBIN A1c (test code = 19830) 10.0 % CBC W/AUTO [id number] 00:00:00 Test Item Value Reference Range Interpretation Comments WBC (test code = 1001) 9.6 K/UL RBC (test code = 1002) 3.58 M/UL HEMOGLOBIN (test code = 1003) 10.3 G/DL HEMATOCRIT (test code = 1004) 30.3 % MCV (test code = 1005) 84.6 fL MCH (test code = 1006) 28.8 PG MCHC (test code = 1007) 34.0 G/DL RDW (test code = 1038) 13.6 % NEUTROPHILS (test code = 1008) 61.0 % LYMPHOCYTES (test code = 1010) 28.8 % MONOCYTES (test code = 1011) 6.4 % EOSINOPHILS (test code = 1012) 2.5 % BASOPHILS (test code = 1013) 1.0 % IMMATURE GRANULOCYTES (test 0.3 % code = 1036) NUCLEATED RBCS (test code = 0.0 /100WBC'S 1065) PLATELET COUNT (test code = 376 K/UL 1015) ABSOLUTE NEUTROPHILS (test code 5.82 K/UL = 1066) ABSOLUTE LYMPHOCYTES (test code 2.75 K/UL = 1067) ABSOLUTE MONOCYTES (test code = 0.61 K/UL 1068) ABSOLUTE EOSINOPHILS (test code 0.24 K/UL = 1040) ABSOLUTE BASOPHILS (test code = 0.10 K/UL 1069) ABS IMMATURE GRANULOCYTES (test 0.03 K/UL code = 1020) ABS NUCLEATED RBCS (test code = 0.00 K/UL 00557) CBC W/AUTO [id number] 00:00:00 Test Item Value Reference Range Interpretation Comments WBC (test code = 1001) 9.6 K/UL RBC (test code = 1002) 3.58 M/UL HEMOGLOBIN (test code = 1003) 10.3 G/DL HEMATOCRIT (test code = 1004) 30.3 % MCV (test code = 1005) 84.6 fL MCH (test code = 1006) 28.8 PG MCHC (test code = 1007) 34.0 G/DL RDW (test code = 1038) 13.6 % NEUTROPHILS (test code = 1008) 61.0 % LYMPHOCYTES (test code = 1010) 28.8 % MONOCYTES (test code = 1011) 6.4 % EOSINOPHILS (test code = 1012) 2.5 % BASOPHILS (test code = 1013) 1.0 % IMMATURE GRANULOCYTES (test 0.3 % code = 1036) NUCLEATED RBCS (test code = 0.0 /100WBC'S 1065) PLATELET COUNT (test code = 376 K/UL 1015) ABSOLUTE NEUTROPHILS (test code 5.82 K/UL = 1066) ABSOLUTE LYMPHOCYTES (test code 2.75 K/UL = 1067) ABSOLUTE MONOCYTES (test code = 0.61 K/UL 1068) ABSOLUTE EOSINOPHILS (test code 0.24 K/UL = 1040) ABSOLUTE BASOPHILS (test code = 0.10 K/UL 1069) ABS IMMATURE GRANULOCYTES (test 0.03 K/UL code = 1020) ABS NUCLEATED RBCS (test code = 0.00 K/UL 38315) CBC W/AUTO [id number] 00:00:00 Test Item Value Reference Range Interpretation Comments WBC (test code = 1001) 9.6 K/UL RBC (test code = 1002) 3.58 M/UL HEMOGLOBIN (test code = 1003) 10.3 G/DL HEMATOCRIT (test code = 1004) 30.3 % MCV (test code = 1005) 84.6 fL MCH (test code = 1006) 28.8 PG MCHC (test code = 1007) 34.0 G/DL RDW (test code = 1038) 13.6 % NEUTROPHILS (test code = 1008) 61.0 % LYMPHOCYTES (test code = 1010) 28.8 % MONOCYTES (test code = 1011) 6.4 % EOSINOPHILS (test code = 1012) 2.5 % BASOPHILS (test code = 1013) 1.0 % IMMATURE GRANULOCYTES (test 0.3 % code = 1036) NUCLEATED RBCS (test code = 0.0 /100WBC'S 1065) PLATELET COUNT (test code = 376 K/UL 1015) ABSOLUTE NEUTROPHILS (test code 5.82 K/UL = 1066) ABSOLUTE LYMPHOCYTES (test code 2.75 K/UL = 1067) ABSOLUTE MONOCYTES (test code = 0.61 K/UL 1068) ABSOLUTE EOSINOPHILS (test code 0.24 K/UL = 1040) ABSOLUTE BASOPHILS (test code = 0.10 K/UL 1069) ABS IMMATURE GRANULOCYTES (test 0.03 K/UL code = 1020) ABS NUCLEATED RBCS (test code = 0.00 K/UL 57453) HEMOGLOBIN [id number] 00:00:00 Test Item Value Reference Range Interpretation Comments HEMOGLOBIN A1c (test code = 71517) 10.0 % HEMOGLOBIN [id number] 00:00:00 Test Item Value Reference Range Interpretation Comments HEMOGLOBIN A1c (test code = 66314) 10.0 % HEMOGLOBIN [id number] 00:00:00 Test Item Value Reference Range Interpretation Comments HEMOGLOBIN A1c (test code = 65322) 10.0 % COMPREHENSIVE METABOLIC [id number] 00:00:00 Test Item Value Reference Range Interpretation Comments GLUCOSE (test code = 2217) 792 MG/DL BUN (test code = 2208) 59 MG/DL CREATININE (test code = 2214) 1.33 MG/DL eGFR AMER. (test code 52 ML/MIN/1.73 = 75698) eGFR NON- AMER. (test 45 ML/MIN/1.73 code = 03027) CALC BUN/CREAT (test code = 44 RATIO 2235) SODIUM (test code = 2231) 129 MEQ/L POTASSIUM (test code = 2228) 6.7 MEQ/L CHLORIDE (test code = 2215) 95 MEQ/L CARBON DIOXIDE (test code = 23 MEQ/L 2206) CALCIUM (test code = 2209) 10.5 MG/DL PROTEIN, TOTAL (test code = 7.1 G/DL 2228) ALBUMIN (test code = 2201) 4.0 G/DL CALC GLOBULIN (test code = 3.1 G/DL 2240) CALC A/G RATIO (test code = 1.3 RATIO 2234) BILIRUBIN, TOTAL (test code = <0.2 MG/DL 2206) ALKALINE PHOSPHATASE (test 123 U/L code = 220) AST (test code = 2218) 21 U/L ALT (test code = 2219) 36 U/L COMPREHENSIVE METABOLIC [id number] 00:00:00 Test Item Value Reference Range Interpretation Comments GLUCOSE (test code = 2217) 792 MG/DL BUN (test code = 2208) 59 MG/DL CREATININE (test code = 2214) 1.33 MG/DL eGFR AMER. (test code 52 ML/MIN/1.73 = 36615) eGFR NON- AMER. (test 45 ML/MIN/1.73 code = 60174) CALC BUN/CREAT (test code = 44 RATIO 2235) SODIUM (test code = 2231) 129 MEQ/L POTASSIUM (test code = 2228) 6.7 MEQ/L CHLORIDE (test code = 2215) 95 MEQ/L CARBON DIOXIDE (test code = 23 MEQ/L 220) CALCIUM (test code = 2209) 10.5 MG/DL PROTEIN, TOTAL (test code = 7.1 G/DL 2228) ALBUMIN (test code = 2201) 4.0 G/DL CALC GLOBULIN (test code = 3.1 G/DL 2240) CALC A/G RATIO (test code = 1.3 RATIO 2234) BILIRUBIN, TOTAL (test code = <0.2 MG/DL 2206) ALKALINE PHOSPHATASE (test 123 U/L code = 2204) AST (test code = 2218) 21 U/L ALT (test code = 2219) 36 U/L COMPREHENSIVE METABOLIC [id number] 00:00:00 Test Item Value Reference Range Interpretation Comments GLUCOSE (test code = 2217) 792 MG/DL BUN (test code = 2208) 59 MG/DL CREATININE (test code = 2214) 1.33 MG/DL eGFR AMER. (test code 52 ML/MIN/1.73 = 71372) eGFR NON- AMER. (test 45 ML/MIN/1.73 code = 59182) CALC BUN/CREAT (test code = 44 RATIO 2235) SODIUM (test code = 2231) 129 MEQ/L POTASSIUM (test code = 2228) 6.7 MEQ/L CHLORIDE (test code = 2215) 95 MEQ/L CARBON DIOXIDE (test code = 23 MEQ/L 2205) CALCIUM (test code = 2209) 10.5 MG/DL PROTEIN, TOTAL (test code = 7.1 G/DL 2228) ALBUMIN (test code = 2201) 4.0 G/DL CALC GLOBULIN (test code = 3.1 G/DL 2239) CALC A/G RATIO (test code = 1.3 RATIO 2234) BILIRUBIN, TOTAL (test code = <0.2 MG/DL 2206) ALKALINE PHOSPHATASE (test 123 U/L code = 2204) AST (test code = 2218) 21 U/L ALT (test code = 2219) 36 U/L COMPREHENSIVE METABOLIC [id number] 00:00:00 Test Item Value Reference Range Interpretation Comments GLUCOSE (test code = 2217) 792 MG/DL BUN (test code = 2208) 59 MG/DL CREATININE (test code = 2214) 1.33 MG/DL eGFR AMER. (test code 52 ML/MIN/1.73 = 51062) eGFR NON- AMER. (test 45 ML/MIN/1.73 code = 04004) CALC BUN/CREAT (test code = 44 RATIO 2235) SODIUM (test code = 2231) 129 MEQ/L POTASSIUM (test code = 2228) 6.7 MEQ/L CHLORIDE (test code = 2215) 95 MEQ/L CARBON DIOXIDE (test code = 23 MEQ/L 220) CALCIUM (test code = 2209) 10.5 MG/DL PROTEIN, TOTAL (test code = 7.1 G/DL 2229) ALBUMIN (test code = 2201) 4.0 G/DL CALC GLOBULIN (test code = 3.1 G/DL 2240) CALC A/G RATIO (test code = 1.3 RATIO 2234) BILIRUBIN, TOTAL (test code = <0.2 MG/DL 2206) ALKALINE PHOSPHATASE (test 123 U/L code = 2204) AST (test code = 2218) 21 U/L ALT (test code = 2219) 36 U/L COMPREHENSIVE METABOLIC [id number] 00:00:00 Test Item Value Reference Range Interpretation Comments GLUCOSE (test code = 2217) 792 MG/DL BUN (test code = 2208) 59 MG/DL CREATININE (test code = 2214) 1.33 MG/DL eGFR AMER. (test code 52 ML/MIN/1.73 = 53495) eGFR NON- AMER. (test 45 ML/MIN/1.73 code = 26306) CALC BUN/CREAT (test code = 44 RATIO 2235) SODIUM (test code = 2231) 129 MEQ/L POTASSIUM (test code = 2228) 6.7 MEQ/L CHLORIDE (test code = 2215) 95 MEQ/L CARBON DIOXIDE (test code = 23 MEQ/L 2205) CALCIUM (test code = 2209) 10.5 MG/DL PROTEIN, TOTAL (test code = 7.1 G/DL 2228) ALBUMIN (test code = 2201) 4.0 G/DL CALC GLOBULIN (test code = 3.1 G/DL 2240) CALC A/G RATIO (test code = 1.3 RATIO 2234) BILIRUBIN, TOTAL (test code = <0.2 MG/DL 2206) ALKALINE PHOSPHATASE (test 123 U/L code = 2204) AST (test code = 2218) 21 U/L ALT (test code = 2219) 36 U/L COMPREHENSIVE METABOLIC [id number] 00:00:00 Test Item Value Reference Range Interpretation Comments GLUCOSE (test code = 2217) 792 MG/DL BUN (test code = 2208) 59 MG/DL CREATININE (test code = 2214) 1.33 MG/DL eGFR AMER. (test code 52 ML/MIN/1.73 = 51086) eGFR NON- AMER. (test 45 ML/MIN/1.73 code = 23362) CALC BUN/CREAT (test code = 44 RATIO 2235) SODIUM (test code = 2231) 129 MEQ/L POTASSIUM (test code = 2228) 6.7 MEQ/L CHLORIDE (test code = 2215) 95 MEQ/L CARBON DIOXIDE (test code = 23 MEQ/L 2205) CALCIUM (test code = 2209) 10.5 MG/DL PROTEIN, TOTAL (test code = 7.1 G/DL 2228) ALBUMIN (test code = 2201) 4.0 G/DL CALC GLOBULIN (test code = 3.1 G/DL 2240) CALC A/G RATIO (test code = 1.3 RATIO 2234) BILIRUBIN, TOTAL (test code = <0.2 MG/DL 2206) ALKALINE PHOSPHATASE (test 123 U/L code = 2204) AST (test code = 2218) 21 U/L ALT (test code = 2219) 36 U/L COMPREHENSIVE METABOLIC [id number] 00:00:00 Test Item Value Reference Range Interpretation Comments GLUCOSE (test code = 2217) 792 MG/DL BUN (test code = 2208) 59 MG/DL CREATININE (test code = 2214) 1.33 MG/DL eGFR AMER. (test code 52 ML/MIN/1.73 = 30962) eGFR NON- AMER. (test 45 ML/MIN/1.73 code = 57782) CALC BUN/CREAT (test code = 44 RATIO 2235) SODIUM (test code = 2231) 129 MEQ/L POTASSIUM (test code = 2228) 6.7 MEQ/L CHLORIDE (test code = 2215) 95 MEQ/L CARBON DIOXIDE (test code = 23 MEQ/L 2205) CALCIUM (test code = 2209) 10.5 MG/DL PROTEIN, TOTAL (test code = 7.1 G/DL 2228) ALBUMIN (test code = 2201) 4.0 G/DL CALC GLOBULIN (test code = 3.1 G/DL 2240) CALC A/G RATIO (test code = 1.3 RATIO 2234) BILIRUBIN, TOTAL (test code = <0.2 MG/DL 2206) ALKALINE PHOSPHATASE (test 123 U/L code = 2204) AST (test code = 2218) 21 U/L ALT (test code = 2219) 36 U/L COMPREHENSIVE METABOLIC [id number] 00:00:00 Test Item Value Reference Range Interpretation Comments GLUCOSE (test code = 2217) 792 MG/DL BUN (test code = 2208) 59 MG/DL CREATININE (test code = 2214) 1.33 MG/DL eGFR AMER. (test code 52 ML/MIN/1.73 = 58244) eGFR NON- AMER. (test 45 ML/MIN/1.73 code = 85811) CALC BUN/CREAT (test code = 44 RATIO 5) SODIUM (test code = 2231) 129 MEQ/L POTASSIUM (test code = 2228) 6.7 MEQ/L CHLORIDE (test code = 2215) 95 MEQ/L CARBON DIOXIDE (test code = 23 MEQ/L 2205) CALCIUM (test code = 220) 10.5 MG/DL PROTEIN, TOTAL (test code = 7.1 G/DL 2228) ALBUMIN (test code = 220) 4.0 G/DL CALC GLOBULIN (test code = 3.1 G/DL 2239) CALC A/G RATIO (test code = 1.3 RATIO 2233) BILIRUBIN, TOTAL (test code = <0.2 MG/DL 2206) ALKALINE PHOSPHATASE (test 123 U/L code = 220) AST (test code = 2218) 21 U/L ALT (test code = 2219) 36 U/L FREE T4 (THYROXINE) [ADDED]2021-04-20 00:00:00 Test Item Value Reference Range Interpretation Comments FREE T4 (THYROXINE) (test code = 4.81 NG/DL 2823) FREE T4 (THYROXINE) [ADDED]2021-04-20 00:00:00 Test Item Value Reference Range Interpretation Comments FREE T4 (THYROXINE) (test code = 4.81 NG/DL 2823) FREE T4 (THYROXINE) [ADDED]2021-04-20 00:00:00 Test Item Value Reference Range Interpretation Comments FREE T4 (THYROXINE) (test code = 4.81 NG/DL 2823) FREE T3 [ADDED]2021-04-20 00:00:00 Test Item Value Reference Range Interpretation Comments FREE T3 (test code = 4273) 12.3 PG/ML FREE T3 [ADDED]2021-04-20 00:00:00 Test Item Value Reference Range Interpretation Comments FREE T3 (test code = 4273) 12.3 PG/ML NOTE: [ADDED]2021-04-20 00:00:00 Test Item Value Reference Range Interpretation Comments NOTE: (test code = 998) (NOTE) FREE T4 (THYROXINE) [ADDED]2021-04-20 00:00:00 Test Item Value Reference Range Interpretation Comments FREE T4 (THYROXINE) (test code = 4.81 NG/DL 2823) FREE T4 (THYROXINE) [ADDED]2021-04-20 00:00:00 Test Item Value Reference Range Interpretation Comments FREE T4 (THYROXINE) (test code = 4.81 NG/DL 2823) FREE T4 (THYROXINE) [ADDED]2021-04-20 00:00:00 Test Item Value Reference Range Interpretation Comments FREE T4 (THYROXINE) (test code = 4.81 NG/DL 2823) FREE T3 [ADDED]2021-04-20 00:00:00 Test Item Value Reference Range Interpretation Comments FREE T3 (test code = 4273) 12.3 PG/ML FREE T3 [ADDED]2021-04-20 00:00:00 Test Item Value Reference Range Interpretation Comments FREE T3 (test code = 4273) 12.3 PG/ML NOTE: [ADDED]2021-04-20 00:00:00 Test Item Value Reference Range Interpretation Comments NOTE: (test code = 998) (NOTE) FREE T4 (THYROXINE) [ADDED]2021-04-20 00:00:00 Test Item Value Reference Range Interpretation Comments FREE T4 (THYROXINE) (test code = 4.81 NG/DL 2823) FREE T4 (THYROXINE) [ADDED]2021-04-20 00:00:00 Test Item Value Reference Range Interpretation Comments FREE T4 (THYROXINE) (test code = 4.81 NG/DL 2823) FREE T4 (THYROXINE) [ADDED]2021-04-20 00:00:00 Test Item Value Reference Range Interpretation Comments FREE T4 (THYROXINE) (test code = 4.81 NG/DL 2823) FREE T3 [ADDED]2021-04-20 00:00:00 Test Item Value Reference Range Interpretation Comments FREE T3 (test code = 4273) 12.3 PG/ML FREE T3 [ADDED]2021-04-20 00:00:00 Test Item Value Reference Range Interpretation Comments FREE T3 (test code = 4273) 12.3 PG/ML NOTE: [ADDED]2021-04-20 00:00:00 Test Item Value Reference Range Interpretation Comments NOTE: (test code = 998) (NOTE) FREE T4 (THYROXINE) [ADDED]2021-04-20 00:00:00 Test Item Value Reference Range Interpretation Comments FREE T4 (THYROXINE) (test code = 4.81 NG/DL 2823) FREE T4 (THYROXINE) [ADDED]2021-04-20 00:00:00 Test Item Value Reference Range Interpretation Comments FREE T4 (THYROXINE) (test code = 4.81 NG/DL 2823) FREE T4 (THYROXINE) [ADDED]2021-04-20 00:00:00 Test Item Value Reference Range Interpretation Comments FREE T4 (THYROXINE) (test code = 4.81 NG/DL 2823) FREE T3 [ADDED]2021-04-20 00:00:00 Test Item Value Reference Range Interpretation Comments FREE T3 (test code = 4273) 12.3 PG/ML FREE T3 [ADDED]2021-04-20 00:00:00 Test Item Value Reference Range Interpretation Comments FREE T3 (test code = 4273) 12.3 PG/ML NOTE: [ADDED]2021-04-20 00:00:00 Test Item Value Reference Range Interpretation Comments NOTE: (test code = 998) (NOTE) MICROALBUMIN, [id number] 00:00:00 Test Item Value Reference Range Interpretation Comments ALBUMIN, URINE, RANDOM (test code = 6.4 MG/DL 58764) MICROALBUMIN, [id number] 00:00:00 Test Item Value Reference Range Interpretation Comments ALBUMIN, URINE, RANDOM (test code = 6.4 MG/DL 66431) MICROALBUMIN, [id number] 00:00:00 Test Item Value Reference Range Interpretation Comments ALBUMIN, URINE, RANDOM (test code = 6.4 MG/DL 42943) MICROALBUMIN, [id number] 00:00:00 Test Item Value Reference Range Interpretation Comments ALBUMIN, URINE, RANDOM (test code = 6.4 MG/DL 34854) MICROALBUMIN, [id number] 00:00:00 Test Item Value Reference Range Interpretation Comments ALBUMIN, URINE, RANDOM (test code = 6.4 MG/DL 15031) MICROALBUMIN, [id number] 00:00:00 Test Item Value Reference Range Interpretation Comments ALBUMIN, URINE, RANDOM (test code = 6.4 MG/DL 12328) MICROALBUMIN, [id number] 00:00:00 Test Item Value Reference Range Interpretation Comments ALBUMIN, URINE, RANDOM (test code = 6.4 MG/DL 23590) MICROALBUMIN, [id number] 00:00:00 Test Item Value Reference Range Interpretation Comments ALBUMIN, URINE, RANDOM (test code = 6.4 MG/DL 79544) COMPREHENSIVE METABOLIC [id number] 00:00:00 Test Item Value Reference Range Interpretation Comments GLUCOSE (test code = 2217) 207 MG/DL BUN (test code = 2208) 45 MG/DL CREATININE (test code = 2214) 1.06 MG/DL eGFR AMER. (test code 68 ML/MIN/1.73 = 05981) eGFR NON- AMER. (test 59 ML/MIN/1.73 code = 24348) CALC BUN/CREAT (test code = 42 RATIO 2235) SODIUM (test code = 2231) 141 MEQ/L POTASSIUM (test code = 2228) 4.5 MEQ/L CHLORIDE (test code = 2215) 101 MEQ/L CARBON DIOXIDE (test code = 28 MEQ/L 2206) CALCIUM (test code = 2209) 10.2 MG/DL PROTEIN, TOTAL (test code = 7.1 G/DL 2229) ALBUMIN (test code = 2201) 4.3 G/DL CALC GLOBULIN (test code = 2.8 G/DL 2240) CALC A/G RATIO (test code = 1.5 RATIO 2234) BILIRUBIN, TOTAL (test code = <0.2 MG/DL 2207) ALKALINE PHOSPHATASE (test 124 U/L code = 2204) AST (test code = 2218) 34 U/L ALT (test code = 2219) 35 U/L COMPREHENSIVE METABOLIC [id number] 00:00:00 Test Item Value Reference Range Interpretation Comments GLUCOSE (test code = 2217) 207 MG/DL BUN (test code = 2208) 45 MG/DL CREATININE (test code = 2214) 1.06 MG/DL eGFR AMER. (test code 68 ML/MIN/1.73 = 37725) eGFR NON- AMER. (test 59 ML/MIN/1.73 code = 13349) CALC BUN/CREAT (test code = 42 RATIO 2235) SODIUM (test code = 2231) 141 MEQ/L POTASSIUM (test code = 2228) 4.5 MEQ/L CHLORIDE (test code = 2215) 101 MEQ/L CARBON DIOXIDE (test code = 28 MEQ/L 2205) CALCIUM (test code = 2209) 10.2 MG/DL PROTEIN, TOTAL (test code = 7.1 G/DL 2228) ALBUMIN (test code = 2201) 4.3 G/DL CALC GLOBULIN (test code = 2.8 G/DL 2239) CALC A/G RATIO (test code = 1.5 RATIO 2234) BILIRUBIN, TOTAL (test code = <0.2 MG/DL 2206) ALKALINE PHOSPHATASE (test 124 U/L code = 2204) AST (test code = 2218) 34 U/L ALT (test code = 2219) 35 U/L LIPID [id number] 00:00:00 Test Item Value Reference Range Interpretation Comments CHOLESTEROL (test code = 2210) 194 MG/DL TRIGLYCERIDES (test code = 2232) 80 MG/DL HDL CHOLESTEROL (test code = 2220) 75 MG/DL CALC LDL CHOL (test code = 2237) 102 MG/DL RISK RATIO LDL/HDL (test code = 1.36 RATIO 2238) LIPID [id number] 00:00:00 Test Item Value Reference Range Interpretation Comments CHOLESTEROL (test code = 2210) 194 MG/DL TRIGLYCERIDES (test code = 2232) 80 MG/DL HDL CHOLESTEROL (test code = 2220) 75 MG/DL CALC LDL CHOL (test code = 2237) 102 MG/DL RISK RATIO LDL/HDL (test code = 1.36 RATIO 2238) COMPREHENSIVE METABOLIC [id number] 00:00:00 Test Item Value Reference Range Interpretation Comments GLUCOSE (test code = 2217) 207 MG/DL BUN (test code = 2208) 45 MG/DL CREATININE (test code = 2214) 1.06 MG/DL eGFR AMER. (test code 68 ML/MIN/1.73 = 38492) eGFR NON- AMER. (test 59 ML/MIN/1.73 code = 54133) CALC BUN/CREAT (test code = 42 RATIO 2235) SODIUM (test code = 2231) 141 MEQ/L POTASSIUM (test code = 2228) 4.5 MEQ/L CHLORIDE (test code = 2215) 101 MEQ/L CARBON DIOXIDE (test code = 28 MEQ/L 2205) CALCIUM (test code = 2209) 10.2 MG/DL PROTEIN, TOTAL (test code = 7.1 G/DL 2228) ALBUMIN (test code = 2201) 4.3 G/DL CALC GLOBULIN (test code = 2.8 G/DL 2240) CALC A/G RATIO (test code = 1.5 RATIO 2234) BILIRUBIN, TOTAL (test code = <0.2 MG/DL 2206) ALKALINE PHOSPHATASE (test 124 U/L code = 2204) AST (test code = 2218) 34 U/L ALT (test code = 2219) 35 U/L COMPREHENSIVE METABOLIC [id number] 00:00:00 Test Item Value Reference Range Interpretation Comments GLUCOSE (test code = 221) 207 MG/DL BUN (test code = 2208) 45 MG/DL CREATININE (test code = 2214) 1.06 MG/DL eGFR AMER. (test code 68 ML/MIN/1.73 = 36257) eGFR NON- AMER. (test 59 ML/MIN/1.73 code = 18915) CALC BUN/CREAT (test code = 42 RATIO 2235) SODIUM (test code = 2231) 141 MEQ/L POTASSIUM (test code = 2228) 4.5 MEQ/L CHLORIDE (test code = 2215) 101 MEQ/L CARBON DIOXIDE (test code = 28 MEQ/L 2205) CALCIUM (test code = 2209) 10.2 MG/DL PROTEIN, TOTAL (test code = 7.1 G/DL 2228) ALBUMIN (test code = 2201) 4.3 G/DL CALC GLOBULIN (test code = 2.8 G/DL 2240) CALC A/G RATIO (test code = 1.5 RATIO 2234) BILIRUBIN, TOTAL (test code = <0.2 MG/DL 2206) ALKALINE PHOSPHATASE (test 124 U/L code = 2204) AST (test code = 2218) 34 U/L ALT (test code = 2219) 35 U/L LIPID [id number] 00:00:00 Test Item Value Reference Range Interpretation Comments CHOLESTEROL (test code = 2210) 194 MG/DL TRIGLYCERIDES (test code = 2232) 80 MG/DL HDL CHOLESTEROL (test code = 2220) 75 MG/DL CALC LDL CHOL (test code = 2237) 102 MG/DL RISK RATIO LDL/HDL (test code = 1.36 RATIO 2238) LIPID [id number] 00:00:00 Test Item Value Reference Range Interpretation Comments CHOLESTEROL (test code = 2210) 194 MG/DL TRIGLYCERIDES (test code = 2232) 80 MG/DL HDL CHOLESTEROL (test code = 2220) 75 MG/DL CALC LDL CHOL (test code = 2237) 102 MG/DL RISK RATIO LDL/HDL (test code = 1.36 RATIO 2238) COMPREHENSIVE METABOLIC [id number] 00:00:00 Test Item Value Reference Range Interpretation Comments GLUCOSE (test code = 2217) 207 MG/DL BUN (test code = 2208) 45 MG/DL CREATININE (test code = 2214) 1.06 MG/DL eGFR AMER. (test code 68 ML/MIN/1.73 = 69428) eGFR NON- AMER. (test 59 ML/MIN/1.73 code = 25946) CALC BUN/CREAT (test code = 42 RATIO 2235) SODIUM (test code = 2231) 141 MEQ/L POTASSIUM (test code = 2228) 4.5 MEQ/L CHLORIDE (test code = 2215) 101 MEQ/L CARBON DIOXIDE (test code = 28 MEQ/L 220) CALCIUM (test code = 2209) 10.2 MG/DL PROTEIN, TOTAL (test code = 7.1 G/DL 2228) ALBUMIN (test code = 2201) 4.3 G/DL CALC GLOBULIN (test code = 2.8 G/DL 2240) CALC A/G RATIO (test code = 1.5 RATIO 2234) BILIRUBIN, TOTAL (test code = <0.2 MG/DL 2206) ALKALINE PHOSPHATASE (test 124 U/L code = 2204) AST (test code = 2218) 34 U/L ALT (test code = 2219) 35 U/L COMPREHENSIVE METABOLIC [id number] 00:00:00 Test Item Value Reference Range Interpretation Comments GLUCOSE (test code = 2217) 207 MG/DL BUN (test code = 2208) 45 MG/DL CREATININE (test code = 2214) 1.06 MG/DL eGFR AMER. (test code 68 ML/MIN/1.73 = 30222) eGFR NON- AMER. (test 59 ML/MIN/1.73 code = 90255) CALC BUN/CREAT (test code = 42 RATIO 2235) SODIUM (test code = 2231) 141 MEQ/L POTASSIUM (test code = 2228) 4.5 MEQ/L CHLORIDE (test code = 2215) 101 MEQ/L CARBON DIOXIDE (test code = 28 MEQ/L 2205) CALCIUM (test code = 2209) 10.2 MG/DL PROTEIN, TOTAL (test code = 7.1 G/DL 2228) ALBUMIN (test code = 2201) 4.3 G/DL CALC GLOBULIN (test code = 2.8 G/DL 224) CALC A/G RATIO (test code = 1.5 RATIO 2234) BILIRUBIN, TOTAL (test code = <0.2 MG/DL 2206) ALKALINE PHOSPHATASE (test 124 U/L code = 2204) AST (test code = 2218) 34 U/L ALT (test code = 2219) 35 U/L LIPID [id number] 00:00:00 Test Item Value Reference Range Interpretation Comments CHOLESTEROL (test code = 2210) 194 MG/DL TRIGLYCERIDES (test code = 2232) 80 MG/DL HDL CHOLESTEROL (test code = 2220) 75 MG/DL CALC LDL CHOL (test code = 2237) 102 MG/DL RISK RATIO LDL/HDL (test code = 1.36 RATIO 2238) LIPID [id number] 00:00:00 Test Item Value Reference Range Interpretation Comments CHOLESTEROL (test code = 2210) 194 MG/DL TRIGLYCERIDES (test code = 2232) 80 MG/DL HDL CHOLESTEROL (test code = 2220) 75 MG/DL CALC LDL CHOL (test code = 2237) 102 MG/DL RISK RATIO LDL/HDL (test code = 1.36 RATIO 2238) COMPREHENSIVE METABOLIC [id number] 00:00:00 Test Item Value Reference Range Interpretation Comments GLUCOSE (test code = 2217) 207 MG/DL BUN (test code = 2208) 45 MG/DL CREATININE (test code = 2214) 1.06 MG/DL eGFR AMER. (test code 68 ML/MIN/1.73 = 36851) eGFR NON- AMER. (test 59 ML/MIN/1.73 code = 50271) CALC BUN/CREAT (test code = 42 RATIO 2235) SODIUM (test code = 2231) 141 MEQ/L POTASSIUM (test code = 2228) 4.5 MEQ/L CHLORIDE (test code = 2215) 101 MEQ/L CARBON DIOXIDE (test code = 28 MEQ/L 220) CALCIUM (test code = 2209) 10.2 MG/DL PROTEIN, TOTAL (test code = 7.1 G/DL 2228) ALBUMIN (test code = 2201) 4.3 G/DL CALC GLOBULIN (test code = 2.8 G/DL 2240) CALC A/G RATIO (test code = 1.5 RATIO 2234) BILIRUBIN, TOTAL (test code = <0.2 MG/DL 2206) ALKALINE PHOSPHATASE (test 124 U/L code = 2204) AST (test code = 2218) 34 U/L ALT (test code = 2219) 35 U/L COMPREHENSIVE METABOLIC [id number] 00:00:00 Test Item Value Reference Range Interpretation Comments GLUCOSE (test code = 2217) 207 MG/DL BUN (test code = 2208) 45 MG/DL CREATININE (test code = 2214) 1.06 MG/DL eGFR AMER. (test code 68 ML/MIN/1.73 = 57170) eGFR NON- AMER. (test 59 ML/MIN/1.73 code = 76692) CALC BUN/CREAT (test code = 42 RATIO 2235) SODIUM (test code = 2231) 141 MEQ/L POTASSIUM (test code = 2228) 4.5 MEQ/L CHLORIDE (test code = 2215) 101 MEQ/L CARBON DIOXIDE (test code = 28 MEQ/L 2205) CALCIUM (test code = 2209) 10.2 MG/DL PROTEIN, TOTAL (test code = 7.1 G/DL 2228) ALBUMIN (test code = 2201) 4.3 G/DL CALC GLOBULIN (test code = 2.8 G/DL 2240) CALC A/G RATIO (test code = 1.5 RATIO 2234) BILIRUBIN, TOTAL (test code = <0.2 MG/DL 2206) ALKALINE PHOSPHATASE (test 124 U/L code = 2204) AST (test code = 2218) 34 U/L ALT (test code = 2219) 35 U/L LIPID [id number] 00:00:00 Test Item Value Reference Range Interpretation Comments CHOLESTEROL (test code = 2210) 194 MG/DL TRIGLYCERIDES (test code = 2232) 80 MG/DL HDL CHOLESTEROL (test code = 2220) 75 MG/DL CALC LDL CHOL (test code = 2237) 102 MG/DL RISK RATIO LDL/HDL (test code = 1.36 RATIO 2238) LIPID [id number] 00:00:00 Test Item Value Reference Range Interpretation Comments CHOLESTEROL (test code = 2210) 194 MG/DL TRIGLYCERIDES (test code = 2232) 80 MG/DL HDL CHOLESTEROL (test code = 2220) 75 MG/DL CALC LDL CHOL (test code = 2237) 102 MG/DL RISK RATIO LDL/HDL (test code = 1.36 RATIO 2238) HEMOGLOBIN [id number] 00:00:00 Test Item Value Reference Range Interpretation Comments HEMOGLOBIN A1c (test code = 56838) 15.4 % CBC W/AUTO [id number] 00:00:00 Test Item Value Reference Range Interpretation Comments WBC (test code = 1001) 8.7 K/UL RBC (test code = 1002) 3.64 M/UL HEMOGLOBIN (test code = 1003) 10.5 G/DL HEMATOCRIT (test code = 1004) 31.6 % MCV (test code = 1005) 86.8 fL MCH (test code = 1006) 28.8 PG MCHC (test code = 1007) 33.2 G/DL RDW (test code = 1038) 12.2 % NEUTROPHILS (test code = 1008) 61.2 % LYMPHOCYTES (test code = 1010) 27.1 % MONOCYTES (test code = 1011) 8.0 % EOSINOPHILS (test code = 1012) 2.7 % BASOPHILS (test code = 1013) 1.0 % PLATELET COUNT (test code = 1015) 314 K/UL CBC W/AUTO [id number] 00:00:00 Test Item Value Reference Range Interpretation Comments WBC (test code = 1001) 8.7 K/UL RBC (test code = 1002) 3.64 M/UL HEMOGLOBIN (test code = 1003) 10.5 G/DL HEMATOCRIT (test code = 1004) 31.6 % MCV (test code = 1005) 86.8 fL MCH (test code = 1006) 28.8 PG MCHC (test code = 1007) 33.2 G/DL RDW (test code = 1038) 12.2 % NEUTROPHILS (test code = 1008) 61.2 % LYMPHOCYTES (test code = 1010) 27.1 % MONOCYTES (test code = 1011) 8.0 % EOSINOPHILS (test code = 1012) 2.7 % BASOPHILS (test code = 1013) 1.0 % PLATELET COUNT (test code = 1015) 314 K/UL CBC W/AUTO [id number] 00:00:00 Test Item Value Reference Range Interpretation Comments WBC (test code = 1001) 8.7 K/UL RBC (test code = 1002) 3.64 M/UL HEMOGLOBIN (test code = 1003) 10.5 G/DL HEMATOCRIT (test code = 1004) 31.6 % MCV (test code = 1005) 86.8 fL MCH (test code = 1006) 28.8 PG MCHC (test code = 1007) 33.2 G/DL RDW (test code = 1038) 12.2 % NEUTROPHILS (test code = 1008) 61.2 % LYMPHOCYTES (test code = 1010) 27.1 % MONOCYTES (test code = 1011) 8.0 % EOSINOPHILS (test code = 1012) 2.7 % BASOPHILS (test code = 1013) 1.0 % PLATELET COUNT (test code = 1015) 314 K/UL HEMOGLOBIN [id number] 00:00:00 Test Item Value Reference Range Interpretation Comments HEMOGLOBIN A1c (test code = 00541) 15.4 % HEMOGLOBIN [id number] 00:00:00 Test Item Value Reference Range Interpretation Comments HEMOGLOBIN A1c (test code = 22928) 15.4 % HEMOGLOBIN [id number] 00:00:00 Test Item Value Reference Range Interpretation Comments HEMOGLOBIN A1c (test code = 40022) 15.4 % CBC W/AUTO [id number] 00:00:00 Test Item Value Reference Range Interpretation Comments WBC (test code = 1001) 8.7 K/UL RBC (test code = 1002) 3.64 M/UL HEMOGLOBIN (test code = 1003) 10.5 G/DL HEMATOCRIT (test code = 1004) 31.6 % MCV (test code = 1005) 86.8 fL MCH (test code = 1006) 28.8 PG MCHC (test code = 1007) 33.2 G/DL RDW (test code = 1038) 12.2 % NEUTROPHILS (test code = 1008) 61.2 % LYMPHOCYTES (test code = 1010) 27.1 % MONOCYTES (test code = 1011) 8.0 % EOSINOPHILS (test code = 1012) 2.7 % BASOPHILS (test code = 1013) 1.0 % PLATELET COUNT (test code = 1015) 314 K/UL CBC W/AUTO [id number] 00:00:00 Test Item Value Reference Range Interpretation Comments WBC (test code = 1001) 8.7 K/UL RBC (test code = 1002) 3.64 M/UL HEMOGLOBIN (test code = 1003) 10.5 G/DL HEMATOCRIT (test code = 1004) 31.6 % MCV (test code = 1005) 86.8 fL MCH (test code = 1006) 28.8 PG MCHC (test code = 1007) 33.2 G/DL RDW (test code = 1038) 12.2 % NEUTROPHILS (test code = 1008) 61.2 % LYMPHOCYTES (test code = 1010) 27.1 % MONOCYTES (test code = 1011) 8.0 % EOSINOPHILS (test code = 1012) 2.7 % BASOPHILS (test code = 1013) 1.0 % PLATELET COUNT (test code = 1015) 314 K/UL CBC W/AUTO [id number] 00:00:00 Test Item Value Reference Range Interpretation Comments WBC (test code = 1001) 8.7 K/UL RBC (test code = 1002) 3.64 M/UL HEMOGLOBIN (test code = 1003) 10.5 G/DL HEMATOCRIT (test code = 1004) 31.6 % MCV (test code = 1005) 86.8 fL MCH (test code = 1006) 28.8 PG MCHC (test code = 1007) 33.2 G/DL RDW (test code = 1038) 12.2 % NEUTROPHILS (test code = 1008) 61.2 % LYMPHOCYTES (test code = 1010) 27.1 % MONOCYTES (test code = 1011) 8.0 % EOSINOPHILS (test code = 1012) 2.7 % BASOPHILS (test code = 1013) 1.0 % PLATELET COUNT (test code = 1015) 314 K/UL HEMOGLOBIN [id number] 00:00:00 Test Item Value Reference Range Interpretation Comments HEMOGLOBIN A1c (test code = 78102) 15.4 % HEMOGLOBIN [id number] 00:00:00 Test Item Value Reference Range Interpretation Comments HEMOGLOBIN A1c (test code = 87337) 15.4 % HEMOGLOBIN [id number] 00:00:00 Test Item Value Reference Range Interpretation Comments HEMOGLOBIN A1c (test code = 01771) 15.4 % CBC W/AUTO [id number] 00:00:00 Test Item Value Reference Range Interpretation Comments WBC (test code = 1001) 8.7 K/UL RBC (test code = 1002) 3.64 M/UL HEMOGLOBIN (test code = 1003) 10.5 G/DL HEMATOCRIT (test code = 1004) 31.6 % MCV (test code = 1005) 86.8 fL MCH (test code = 1006) 28.8 PG MCHC (test code = 1007) 33.2 G/DL RDW (test code = 1038) 12.2 % NEUTROPHILS (test code = 1008) 61.2 % LYMPHOCYTES (test code = 1010) 27.1 % MONOCYTES (test code = 1011) 8.0 % EOSINOPHILS (test code = 1012) 2.7 % BASOPHILS (test code = 1013) 1.0 % PLATELET COUNT (test code = 1015) 314 K/UL CBC W/AUTO [id number] 00:00:00 Test Item Value Reference Range Interpretation Comments WBC (test code = 1001) 8.7 K/UL RBC (test code = 1002) 3.64 M/UL HEMOGLOBIN (test code = 1003) 10.5 G/DL HEMATOCRIT (test code = 1004) 31.6 % MCV (test code = 1005) 86.8 fL MCH (test code = 1006) 28.8 PG MCHC (test code = 1007) 33.2 G/DL RDW (test code = 1038) 12.2 % NEUTROPHILS (test code = 1008) 61.2 % LYMPHOCYTES (test code = 1010) 27.1 % MONOCYTES (test code = 1011) 8.0 % EOSINOPHILS (test code = 1012) 2.7 % BASOPHILS (test code = 1013) 1.0 % PLATELET COUNT (test code = 1015) 314 K/UL CBC W/AUTO [id number] 00:00:00 Test Item Value Reference Range Interpretation Comments WBC (test code = 1001) 8.7 K/UL RBC (test code = 1002) 3.64 M/UL HEMOGLOBIN (test code = 1003) 10.5 G/DL HEMATOCRIT (test code = 1004) 31.6 % MCV (test code = 1005) 86.8 fL MCH (test code = 1006) 28.8 PG MCHC (test code = 1007) 33.2 G/DL RDW (test code = 1038) 12.2 % NEUTROPHILS (test code = 1008) 61.2 % LYMPHOCYTES (test code = 1010) 27.1 % MONOCYTES (test code = 1011) 8.0 % EOSINOPHILS (test code = 1012) 2.7 % BASOPHILS (test code = 1013) 1.0 % PLATELET COUNT (test code = 1015) 314 K/UL HEMOGLOBIN [id number] 00:00:00 Test Item Value Reference Range Interpretation Comments HEMOGLOBIN A1c (test code = 88452) 15.4 % HEMOGLOBIN [id number] 00:00:00 Test Item Value Reference Range Interpretation Comments HEMOGLOBIN A1c (test code = 93668) 15.4 % HEMOGLOBIN [id number] 00:00:00 Test Item Value Reference Range Interpretation Comments HEMOGLOBIN A1c (test code = 48679) 15.4 % CBC W/AUTO [id number] 00:00:00 Test Item Value Reference Range Interpretation Comments WBC (test code = 1001) 8.7 K/UL RBC (test code = 1002) 3.64 M/UL HEMOGLOBIN (test code = 1003) 10.5 G/DL HEMATOCRIT (test code = 1004) 31.6 % MCV (test code = 1005) 86.8 fL MCH (test code = 1006) 28.8 PG MCHC (test code = 1007) 33.2 G/DL RDW (test code = 1038) 12.2 % NEUTROPHILS (test code = 1008) 61.2 % LYMPHOCYTES (test code = 1010) 27.1 % MONOCYTES (test code = 1011) 8.0 % EOSINOPHILS (test code = 1012) 2.7 % BASOPHILS (test code = 1013) 1.0 % PLATELET COUNT (test code = 1015) 314 K/UL CBC W/AUTO [id number] 00:00:00 Test Item Value Reference Range Interpretation Comments WBC (test code = 1001) 8.7 K/UL RBC (test code = 1002) 3.64 M/UL HEMOGLOBIN (test code = 1003) 10.5 G/DL HEMATOCRIT (test code = 1004) 31.6 % MCV (test code = 1005) 86.8 fL MCH (test code = 1006) 28.8 PG MCHC (test code = 1007) 33.2 G/DL RDW (test code = 1038) 12.2 % NEUTROPHILS (test code = 1008) 61.2 % LYMPHOCYTES (test code = 1010) 27.1 % MONOCYTES (test code = 1011) 8.0 % EOSINOPHILS (test code = 1012) 2.7 % BASOPHILS (test code = 1013) 1.0 % PLATELET COUNT (test code = 1015) 314 K/UL CBC W/AUTO [id number] 00:00:00 Test Item Value Reference Range Interpretation Comments WBC (test code = 1001) 8.7 K/UL RBC (test code = 1002) 3.64 M/UL HEMOGLOBIN (test code = 1003) 10.5 G/DL HEMATOCRIT (test code = 1004) 31.6 % MCV (test code = 1005) 86.8 fL MCH (test code = 1006) 28.8 PG MCHC (test code = 1007) 33.2 G/DL RDW (test code = 1038) 12.2 % NEUTROPHILS (test code = 1008) 61.2 % LYMPHOCYTES (test code = 1010) 27.1 % MONOCYTES (test code = 1011) 8.0 % EOSINOPHILS (test code = 1012) 2.7 % BASOPHILS (test code = 1013) 1.0 % PLATELET COUNT (test code = 1015) 314 K/UL HEMOGLOBIN [id number] 00:00:00 Test Item Value Reference Range Interpretation Comments HEMOGLOBIN A1c (test code = 54083) 15.4 % HEMOGLOBIN [id number] 00:00:00 Test Item Value Reference Range Interpretation Comments HEMOGLOBIN A1c (test code = 50681) 15.4 % SARS-CoV-2 (COVID-19) by RT-PCR (HIGH RISK)2020-12-01 00:00:00 Test Item Value Reference Range Interpretation Comments SARS-CoV-2 INTERPRETATION (test NEGATIVE code = 86131) SOURCE (test code = 02550) NOT SPECIFIED SARS-CoV-2 (COVID-19) by RT-PCR (HIGH RISK)2020-12-01 00:00:00 Test Item Value Reference Range Interpretation Comments SARS-CoV-2 INTERPRETATION (test NEGATIVE code = 61001) SOURCE (test code = 58835) NOT SPECIFIED SARS-CoV-2 (COVID-19) by RT-PCR (HIGH RISK)2020-12-01 00:00:00 Test Item Value Reference Range Interpretation Comments SARS-CoV-2 INTERPRETATION (test NEGATIVE code = 09013) SOURCE (test code = 38010) NOT SPECIFIED SARS-CoV-2 (COVID-19) by RT-PCR (HIGH RISK)2020-12-01 00:00:00 Test Item Value Reference Range Interpretation Comments SARS-CoV-2 INTERPRETATION (test NEGATIVE code = 40261) SOURCE (test code = 91992) NOT SPECIFIED SARS-CoV-2 (COVID-19) by RT-PCR (HIGH RISK)2020-12-01 00:00:00 Test Item Value Reference Range Interpretation Comments SARS-CoV-2 INTERPRETATION (test NEGATIVE code = 91325) SOURCE (test code = 88496) NOT SPECIFIED SARS-CoV-2 (COVID-19) by RT-PCR (HIGH RISK)2020-12-01 00:00:00 Test Item Value Reference Range Interpretation Comments SARS-CoV-2 INTERPRETATION (test NEGATIVE code = 14724) SOURCE (test code = 08012) NOT SPECIFIED SARS-CoV-2 (COVID-19) by RT-PCR (HIGH RISK)2020-12-01 00:00:00 Test Item Value Reference Range Interpretation Comments SARS-CoV-2 INTERPRETATION (test NEGATIVE code = 07594) SOURCE (test code = 72603) NOT SPECIFIED SARS-CoV-2 (COVID-19) by RT-PCR (HIGH RISK)2020-12-01 00:00:00 Test Item Value Reference Range Interpretation Comments SARS-CoV-2 INTERPRETATION (test NEGATIVE code = 61059) SOURCE (test code = 19012) NOT SPECIFIED LIPID [id number] 00:00:00 Test Item Value Reference Range Interpretation Comments CHOLESTEROL (test code = 2210) 187 MG/DL TRIGLYCERIDES (test code = 2232) 105 MG/DL HDL CHOLESTEROL (test code = 2220) 69 MG/DL CALC LDL CHOL (test code = 2237) 98 MG/DL RISK RATIO LDL/HDL (test code = 1.42 RATIO 2238) LIPID [id number] 00:00:00 Test Item Value Reference Range Interpretation Comments CHOLESTEROL (test code = 2210) 187 MG/DL TRIGLYCERIDES (test code = 2232) 105 MG/DL HDL CHOLESTEROL (test code = 2220) 69 MG/DL CALC LDL CHOL (test code = 2237) 98 MG/DL RISK RATIO LDL/HDL (test code = 1.42 RATIO 2238) COMPREHENSIVE METABOLIC [id number] 00:00:00 Test Item Value Reference Range Interpretation Comments GLUCOSE (test code = 2217) 195 MG/DL BUN (test code = 2208) 25 MG/DL CREATININE (test code = 2214) 1.02 MG/DL eGFR AMER. (test code 72 ML/MIN/1.73 = 22305) eGFR NON- AMER. (test 62 ML/MIN/1.73 code = 22702) CALC BUN/CREAT (test code = 25 RATIO 2235) SODIUM (test code = 2231) 136 MEQ/L POTASSIUM (test code = 2228) 5.0 MEQ/L CHLORIDE (test code = 2215) 98 MEQ/L CARBON DIOXIDE (test code = 25 MEQ/L 6) CALCIUM (test code = 2209) 10.6 MG/DL PROTEIN, TOTAL (test code = 7.7 G/DL 2228) ALBUMIN (test code = 2201) 4.3 G/DL CALC GLOBULIN (test code = 3.4 G/DL 2240) CALC A/G RATIO (test code = 1.3 RATIO 2234) BILIRUBIN, TOTAL (test code = 0.2 MG/DL 2207) ALKALINE PHOSPHATASE (test 331 U/L code = 2204) AST (test code = 2218) 23 U/L ALT (test code = 2219) 46 U/L COMPREHENSIVE METABOLIC [id number] 00:00:00 Test Item Value Reference Range Interpretation Comments GLUCOSE (test code = 2217) 195 MG/DL BUN (test code = 2208) 25 MG/DL CREATININE (test code = 2214) 1.02 MG/DL eGFR AMER. (test code 72 ML/MIN/1.73 = 28297) eGFR NON- AMER. (test 62 ML/MIN/1.73 code = 73588) CALC BUN/CREAT (test code = 25 RATIO 2235) SODIUM (test code = 2231) 136 MEQ/L POTASSIUM (test code = 2228) 5.0 MEQ/L CHLORIDE (test code = 2215) 98 MEQ/L CARBON DIOXIDE (test code = 25 MEQ/L 2205) CALCIUM (test code = 2209) 10.6 MG/DL PROTEIN, TOTAL (test code = 7.7 G/DL 2228) ALBUMIN (test code = 2201) 4.3 G/DL CALC GLOBULIN (test code = 3.4 G/DL 2239) CALC A/G RATIO (test code = 1.3 RATIO 2234) BILIRUBIN, TOTAL (test code = 0.2 MG/DL 2206) ALKALINE PHOSPHATASE (test 331 U/L code = 2204) AST (test code = 2218) 23 U/L ALT (test code = 2219) 46 U/L LIPID [id number] 00:00:00 Test Item Value Reference Range Interpretation Comments CHOLESTEROL (test code = 2210) 187 MG/DL TRIGLYCERIDES (test code = 2232) 105 MG/DL HDL CHOLESTEROL (test code = 2220) 69 MG/DL CALC LDL CHOL (test code = 2237) 98 MG/DL RISK RATIO LDL/HDL (test code = 1.42 RATIO 2238) LIPID [id number] 00:00:00 Test Item Value Reference Range Interpretation Comments CHOLESTEROL (test code = 2210) 187 MG/DL TRIGLYCERIDES (test code = 2232) 105 MG/DL HDL CHOLESTEROL (test code = 2220) 69 MG/DL CALC LDL CHOL (test code = 2237) 98 MG/DL RISK RATIO LDL/HDL (test code = 1.42 RATIO 2238) COMPREHENSIVE METABOLIC [id number] 00:00:00 Test Item Value Reference Range Interpretation Comments GLUCOSE (test code = 2217) 195 MG/DL BUN (test code = 2208) 25 MG/DL CREATININE (test code = 2214) 1.02 MG/DL eGFR AMER. (test code 72 ML/MIN/1.73 = 01243) eGFR NON- AMER. (test 62 ML/MIN/1.73 code = 95748) CALC BUN/CREAT (test code = 25 RATIO 2235) SODIUM (test code = 2231) 136 MEQ/L POTASSIUM (test code = 2228) 5.0 MEQ/L CHLORIDE (test code = 2215) 98 MEQ/L CARBON DIOXIDE (test code = 25 MEQ/L 2205) CALCIUM (test code = 2209) 10.6 MG/DL PROTEIN, TOTAL (test code = 7.7 G/DL 2228) ALBUMIN (test code = 2201) 4.3 G/DL CALC GLOBULIN (test code = 3.4 G/DL 2240) CALC A/G RATIO (test code = 1.3 RATIO 2234) BILIRUBIN, TOTAL (test code = 0.2 MG/DL 2206) ALKALINE PHOSPHATASE (test 331 U/L code = 2204) AST (test code = 2218) 23 U/L ALT (test code = 2219) 46 U/L COMPREHENSIVE METABOLIC [id number] 00:00:00 Test Item Value Reference Range Interpretation Comments GLUCOSE (test code = 2217) 195 MG/DL BUN (test code = 2208) 25 MG/DL CREATININE (test code = 2214) 1.02 MG/DL eGFR AMER. (test code 72 ML/MIN/1.73 = 02999) eGFR NON- AMER. (test 62 ML/MIN/1.73 code = 84536) CALC BUN/CREAT (test code = 25 RATIO 2235) SODIUM (test code = 2231) 136 MEQ/L POTASSIUM (test code = 2228) 5.0 MEQ/L CHLORIDE (test code = 2215) 98 MEQ/L CARBON DIOXIDE (test code = 25 MEQ/L 2205) CALCIUM (test code = 2209) 10.6 MG/DL PROTEIN, TOTAL (test code = 7.7 G/DL 2228) ALBUMIN (test code = 2201) 4.3 G/DL CALC GLOBULIN (test code = 3.4 G/DL 2240) CALC A/G RATIO (test code = 1.3 RATIO 2234) BILIRUBIN, TOTAL (test code = 0.2 MG/DL 2206) ALKALINE PHOSPHATASE (test 331 U/L code = 2204) AST (test code = 2218) 23 U/L ALT (test code = 2219) 46 U/L LIPID [id number] 00:00:00 Test Item Value Reference Range Interpretation Comments CHOLESTEROL (test code = 2210) 187 MG/DL TRIGLYCERIDES (test code = 2232) 105 MG/DL HDL CHOLESTEROL (test code = 2220) 69 MG/DL CALC LDL CHOL (test code = 2237) 98 MG/DL RISK RATIO LDL/HDL (test code = 1.42 RATIO 2238) LIPID [id number] 00:00:00 Test Item Value Reference Range Interpretation Comments CHOLESTEROL (test code = 2210) 187 MG/DL TRIGLYCERIDES (test code = 2232) 105 MG/DL HDL CHOLESTEROL (test code = 2220) 69 MG/DL CALC LDL CHOL (test code = 2237) 98 MG/DL RISK RATIO LDL/HDL (test code = 1.42 RATIO 2238) COMPREHENSIVE METABOLIC [id number] 00:00:00 Test Item Value Reference Range Interpretation Comments GLUCOSE (test code = 2217) 195 MG/DL BUN (test code = 2208) 25 MG/DL CREATININE (test code = 2214) 1.02 MG/DL eGFR AMER. (test code 72 ML/MIN/1.73 = 86999) eGFR NON- AMER. (test 62 ML/MIN/1.73 code = 01168) CALC BUN/CREAT (test code = 25 RATIO 2235) SODIUM (test code = 2231) 136 MEQ/L POTASSIUM (test code = 2228) 5.0 MEQ/L CHLORIDE (test code = 2215) 98 MEQ/L CARBON DIOXIDE (test code = 25 MEQ/L 2206) CALCIUM (test code = 2209) 10.6 MG/DL PROTEIN, TOTAL (test code = 7.7 G/DL 2228) ALBUMIN (test code = 2201) 4.3 G/DL CALC GLOBULIN (test code = 3.4 G/DL 2240) CALC A/G RATIO (test code = 1.3 RATIO 2234) BILIRUBIN, TOTAL (test code = 0.2 MG/DL 2206) ALKALINE PHOSPHATASE (test 331 U/L code = 2204) AST (test code = 2218) 23 U/L ALT (test code = 2219) 46 U/L COMPREHENSIVE METABOLIC [id number] 00:00:00 Test Item Value Reference Range Interpretation Comments GLUCOSE (test code = 2217) 195 MG/DL BUN (test code = 2208) 25 MG/DL CREATININE (test code = 2214) 1.02 MG/DL eGFR AMER. (test code 72 ML/MIN/1.73 = 19793) eGFR NON- AMER. (test 62 ML/MIN/1.73 code = 84142) CALC BUN/CREAT (test code = 25 RATIO 2235) SODIUM (test code = 2231) 136 MEQ/L POTASSIUM (test code = 2228) 5.0 MEQ/L CHLORIDE (test code = 2215) 98 MEQ/L CARBON DIOXIDE (test code = 25 MEQ/L 2205) CALCIUM (test code = 2209) 10.6 MG/DL PROTEIN, TOTAL (test code = 7.7 G/DL 2228) ALBUMIN (test code = 2201) 4.3 G/DL CALC GLOBULIN (test code = 3.4 G/DL 224) CALC A/G RATIO (test code = 1.3 RATIO 2234) BILIRUBIN, TOTAL (test code = 0.2 MG/DL 2206) ALKALINE PHOSPHATASE (test 331 U/L code = 2204) AST (test code = 2218) 23 U/L ALT (test code = 2219) 46 U/L LIPID [id number] 00:00:00 Test Item Value Reference Range Interpretation Comments CHOLESTEROL (test code = 2210) 187 MG/DL TRIGLYCERIDES (test code = 2232) 105 MG/DL HDL CHOLESTEROL (test code = 2220) 69 MG/DL CALC LDL CHOL (test code = 2237) 98 MG/DL RISK RATIO LDL/HDL (test code = 1.42 RATIO 2238) LIPID [id number] 00:00:00 Test Item Value Reference Range Interpretation Comments CHOLESTEROL (test code = 2210) 187 MG/DL TRIGLYCERIDES (test code = 2232) 105 MG/DL HDL CHOLESTEROL (test code = 2220) 69 MG/DL CALC LDL CHOL (test code = 2237) 98 MG/DL RISK RATIO LDL/HDL (test code = 1.42 RATIO 2238) COMPREHENSIVE METABOLIC [id number] 00:00:00 Test Item Value Reference Range Interpretation Comments GLUCOSE (test code = 2217) 195 MG/DL BUN (test code = 2208) 25 MG/DL CREATININE (test code = 2214) 1.02 MG/DL eGFR AMER. (test code 72 ML/MIN/1.73 = 27678) eGFR NON- AMER. (test 62 ML/MIN/1.73 code = 09945) CALC BUN/CREAT (test code = 25 RATIO 2235) SODIUM (test code = 2231) 136 MEQ/L POTASSIUM (test code = 2228) 5.0 MEQ/L CHLORIDE (test code = 2215) 98 MEQ/L CARBON DIOXIDE (test code = 25 MEQ/L 220) CALCIUM (test code = 2209) 10.6 MG/DL PROTEIN, TOTAL (test code = 7.7 G/DL 2228) ALBUMIN (test code = 2201) 4.3 G/DL CALC GLOBULIN (test code = 3.4 G/DL 2240) CALC A/G RATIO (test code = 1.3 RATIO 2234) BILIRUBIN, TOTAL (test code = 0.2 MG/DL 2206) ALKALINE PHOSPHATASE (test 331 U/L code = 2204) AST (test code = 2218) 23 U/L ALT (test code = 2219) 46 U/L COMPREHENSIVE METABOLIC [id number] 00:00:00 Test Item Value Reference Range Interpretation Comments GLUCOSE (test code = 2217) 195 MG/DL BUN (test code = 2208) 25 MG/DL CREATININE (test code = 2214) 1.02 MG/DL eGFR AMER. (test code 72 ML/MIN/1.73 = 07741) eGFR NON- AMER. (test 62 ML/MIN/1.73 code = 03486) CALC BUN/CREAT (test code = 25 RATIO 2235) SODIUM (test code = 2231) 136 MEQ/L POTASSIUM (test code = 2228) 5.0 MEQ/L CHLORIDE (test code = 2215) 98 MEQ/L CARBON DIOXIDE (test code = 25 MEQ/L 2205) CALCIUM (test code = 2209) 10.6 MG/DL PROTEIN, TOTAL (test code = 7.7 G/DL 2228) ALBUMIN (test code = 2201) 4.3 G/DL CALC GLOBULIN (test code = 3.4 G/DL 2240) CALC A/G RATIO (test code = 1.3 RATIO 2234) BILIRUBIN, TOTAL (test code = 0.2 MG/DL 2206) ALKALINE PHOSPHATASE (test 331 U/L code = 2204) AST (test code = 2218) 23 U/L ALT (test code = 2219) 46 U/L HEMOGLOBIN [id number] 00:00:00 Test Item Value Reference Range Interpretation Comments HEMOGLOBIN A1c (test code = 66239) 14.3 % HEMOGLOBIN [id number] 00:00:00 Test Item Value Reference Range Interpretation Comments HEMOGLOBIN A1c (test code = 63467) 14.3 % HEMOGLOBIN [id number] 00:00:00 Test Item Value Reference Range Interpretation Comments HEMOGLOBIN A1c (test code = 47798) 14.3 % HEMOGLOBIN [id number] 00:00:00 Test Item Value Reference Range Interpretation Comments HEMOGLOBIN A1c (test code = 70502) 14.3 % HEMOGLOBIN [id number] 00:00:00 Test Item Value Reference Range Interpretation Comments HEMOGLOBIN A1c (test code = 82312) 14.3 % HEMOGLOBIN [id number] 00:00:00 Test Item Value Reference Range Interpretation Comments HEMOGLOBIN A1c (test code = 80918) 14.3 % HEMOGLOBIN [id number] 00:00:00 Test Item Value Reference Range Interpretation Comments HEMOGLOBIN A1c (test code = 94426) 14.3 % HEMOGLOBIN [id number] 00:00:00 Test Item Value Reference Range Interpretation Comments HEMOGLOBIN A1c (test code = 11085) 14.3 % HEMOGLOBIN [id number] 00:00:00 Test Item Value Reference Range Interpretation Comments HEMOGLOBIN A1c (test code = 02557) 14.3 % HEMOGLOBIN [id number] 00:00:00 Test Item Value Reference Range Interpretation Comments HEMOGLOBIN A1c (test code = 82146) 14.3 % HEMOGLOBIN [id number] 00:00:00 Test Item Value Reference Range Interpretation Comments HEMOGLOBIN A1c (test code = 38212) 14.3 % HEMOGLOBIN [id number] 00:00:00 Test Item Value Reference Range Interpretation Comments HEMOGLOBIN A1c (test code = 94086) 14.3 % HEMOGLOBIN [id number] 00:00:00 Test Item Value Reference Range Interpretation Comments HEMOGLOBIN A1c (test code = 79506) 10.7 % HEMOGLOBIN [id number] 00:00:00 Test Item Value Reference Range Interpretation Comments HEMOGLOBIN A1c (test code = 22917) 10.7 % HEMOGLOBIN [id number] 00:00:00 Test Item Value Reference Range Interpretation Comments HEMOGLOBIN A1c (test code = 99253) 10.7 % HEMOGLOBIN [id number] 00:00:00 Test Item Value Reference Range Interpretation Comments HEMOGLOBIN A1c (test code = 51667) 10.7 % HEMOGLOBIN [id number] 00:00:00 Test Item Value Reference Range Interpretation Comments HEMOGLOBIN A1c (test code = 99478) 10.7 % HEMOGLOBIN [id number] 00:00:00 Test Item Value Reference Range Interpretation Comments HEMOGLOBIN A1c (test code = 45553) 10.7 % HEMOGLOBIN [id number] 00:00:00 Test Item Value Reference Range Interpretation Comments HEMOGLOBIN A1c (test code = 39584) 10.7 % HEMOGLOBIN [id number] 00:00:00 Test Item Value Reference Range Interpretation Comments HEMOGLOBIN A1c (test code = 09337) 10.7 % HEMOGLOBIN [id number] 00:00:00 Test Item Value Reference Range Interpretation Comments HEMOGLOBIN A1c (test code = 29663) 10.7 % HEMOGLOBIN [id number] 00:00:00 Test Item Value Reference Range Interpretation Comments HEMOGLOBIN A1c (test code = 05539) 10.7 % HEMOGLOBIN [id number] 00:00:00 Test Item Value Reference Range Interpretation Comments HEMOGLOBIN A1c (test code = 95178) 10.7 % HEMOGLOBIN [id number] 00:00:00 Test Item Value Reference Range Interpretation Comments HEMOGLOBIN A1c (test code = 15609) 10.7 % COMPREHENSIVE METABOLIC [id number] 00:00:00 Test Item Value Reference Range Interpretation Comments GLUCOSE (test code = 2217) 398 MG/DL BUN (test code = 2208) 39 MG/DL CREATININE (test code = 2214) 0.88 MG/DL eGFR AMER. (test code 88 ML/MIN/1.73 = 54934) eGFR NON- AMER. (test 76 ML/MIN/1.73 code = 64196) CALC BUN/CREAT (test code = 44 RATIO 2235) SODIUM (test code = 2231) 136 MEQ/L POTASSIUM (test code = 2228) 5.0 MEQ/L CHLORIDE (test code = 2215) 95 MEQ/L CARBON DIOXIDE (test code = 29 MEQ/L 2205) CALCIUM (test code = 2209) 9.8 MG/DL PROTEIN, TOTAL (test code = 7.2 G/DL 2228) ALBUMIN (test code = 2201) 4.5 G/DL CALC GLOBULIN (test code = 2.7 G/DL 2239) CALC A/G RATIO (test code = 1.7 RATIO 2233) BILIRUBIN, TOTAL (test code = 0.1 MG/DL 2206) ALKALINE PHOSPHATASE (test 102 U/L code = 2204) AST (test code = 2218) 16 U/L ALT (test code = 2219) 13 U/L COMPREHENSIVE METABOLIC [id number] 00:00:00 Test Item Value Reference Range Interpretation Comments GLUCOSE (test code = 2217) 398 MG/DL BUN (test code = 2208) 39 MG/DL CREATININE (test code = 2214) 0.88 MG/DL eGFR AMER. (test code 88 ML/MIN/1.73 = 53376) eGFR NON- AMER. (test 76 ML/MIN/1.73 code = 73533) CALC BUN/CREAT (test code = 44 RATIO 2235) SODIUM (test code = 2231) 136 MEQ/L POTASSIUM (test code = 2228) 5.0 MEQ/L CHLORIDE (test code = 2215) 95 MEQ/L CARBON DIOXIDE (test code = 29 MEQ/L 2205) CALCIUM (test code = 2209) 9.8 MG/DL PROTEIN, TOTAL (test code = 7.2 G/DL 2228) ALBUMIN (test code = 2201) 4.5 G/DL CALC GLOBULIN (test code = 2.7 G/DL 0) CALC A/G RATIO (test code = 1.7 RATIO 4) BILIRUBIN, TOTAL (test code = 0.1 MG/DL 2206) ALKALINE PHOSPHATASE (test 102 U/L code = 2204) AST (test code = 2218) 16 U/L ALT (test code = 2219) 13 U/L LIPID [id number] 00:00:00 Test Item Value Reference Range Interpretation Comments CHOLESTEROL (test code = 2210) 255 MG/DL TRIGLYCERIDES (test code = 2232) 144 MG/DL HDL CHOLESTEROL (test code = 2220) 62 MG/DL CALC LDL CHOL (test code = 2237) 164 MG/DL RISK RATIO LDL/HDL (test code = 2.65 RATIO 2238) LIPID [id number] 00:00:00 Test Item Value Reference Range Interpretation Comments CHOLESTEROL (test code = 2210) 255 MG/DL TRIGLYCERIDES (test code = 2232) 144 MG/DL HDL CHOLESTEROL (test code = 2220) 62 MG/DL CALC LDL CHOL (test code = 2237) 164 MG/DL RISK RATIO LDL/HDL (test code = 2.65 RATIO 2238) HEMOGLOBIN [id number] 00:00:00 Test Item Value Reference Range Interpretation Comments HEMOGLOBIN A1c (test code = 40270) 12.9 % HEMOGLOBIN [id number] 00:00:00 Test Item Value Reference Range Interpretation Comments HEMOGLOBIN A1c (test code = 56590) 12.9 % HEMOGLOBIN [id number] 00:00:00 Test Item Value Reference Range Interpretation Comments HEMOGLOBIN A1c (test code = 05385) 12.9 % COMPREHENSIVE METABOLIC [id number] 00:00:00 Test Item Value Reference Range Interpretation Comments GLUCOSE (test code = 2217) 398 MG/DL BUN (test code = 2208) 39 MG/DL CREATININE (test code = 2214) 0.88 MG/DL eGFR AMER. (test code 88 ML/MIN/1.73 = 05798) eGFR NON- AMER. (test 76 ML/MIN/1.73 code = 56076) CALC BUN/CREAT (test code = 44 RATIO 2235) SODIUM (test code = 2231) 136 MEQ/L POTASSIUM (test code = 2228) 5.0 MEQ/L CHLORIDE (test code = 2215) 95 MEQ/L CARBON DIOXIDE (test code = 29 MEQ/L 2205) CALCIUM (test code = 2209) 9.8 MG/DL PROTEIN, TOTAL (test code = 7.2 G/DL 2228) ALBUMIN (test code = 2201) 4.5 G/DL CALC GLOBULIN (test code = 2.7 G/DL 2240) CALC A/G RATIO (test code = 1.7 RATIO 2233) BILIRUBIN, TOTAL (test code = 0.1 MG/DL 2206) ALKALINE PHOSPHATASE (test 102 U/L code = 2204) AST (test code = 2218) 16 U/L ALT (test code = 2219) 13 U/L COMPREHENSIVE METABOLIC [id number] 00:00:00 Test Item Value Reference Range Interpretation Comments GLUCOSE (test code = 2217) 398 MG/DL BUN (test code = 2208) 39 MG/DL CREATININE (test code = 2214) 0.88 MG/DL eGFR AMER. (test code 88 ML/MIN/1.73 = 33533) eGFR NON- AMER. (test 76 ML/MIN/1.73 code = 94965) CALC BUN/CREAT (test code = 44 RATIO 2235) SODIUM (test code = 2231) 136 MEQ/L POTASSIUM (test code = 2228) 5.0 MEQ/L CHLORIDE (test code = 2215) 95 MEQ/L CARBON DIOXIDE (test code = 29 MEQ/L 2205) CALCIUM (test code = 2209) 9.8 MG/DL PROTEIN, TOTAL (test code = 7.2 G/DL 2228) ALBUMIN (test code = 2201) 4.5 G/DL CALC GLOBULIN (test code = 2.7 G/DL 2239) CALC A/G RATIO (test code = 1.7 RATIO 2234) BILIRUBIN, TOTAL (test code = 0.1 MG/DL 2206) ALKALINE PHOSPHATASE (test 102 U/L code = 2204) AST (test code = 2218) 16 U/L ALT (test code = 2219) 13 U/L LIPID [id number] 00:00:00 Test Item Value Reference Range Interpretation Comments CHOLESTEROL (test code = 2210) 255 MG/DL TRIGLYCERIDES (test code = 2232) 144 MG/DL HDL CHOLESTEROL (test code = 2220) 62 MG/DL CALC LDL CHOL (test code = 2237) 164 MG/DL RISK RATIO LDL/HDL (test code = 2.65 RATIO 2238) LIPID [id number] 00:00:00 Test Item Value Reference Range Interpretation Comments CHOLESTEROL (test code = 2210) 255 MG/DL TRIGLYCERIDES (test code = 2232) 144 MG/DL HDL CHOLESTEROL (test code = 2220) 62 MG/DL CALC LDL CHOL (test code = 2237) 164 MG/DL RISK RATIO LDL/HDL (test code = 2.65 RATIO 2238) HEMOGLOBIN [id number] 00:00:00 Test Item Value Reference Range Interpretation Comments HEMOGLOBIN A1c (test code = 80370) 12.9 % HEMOGLOBIN [id number] 00:00:00 Test Item Value Reference Range Interpretation Comments HEMOGLOBIN A1c (test code = 33286) 12.9 % HEMOGLOBIN [id number] 00:00:00 Test Item Value Reference Range Interpretation Comments HEMOGLOBIN A1c (test code = 63038) 12.9 % COMPREHENSIVE METABOLIC [id number] 00:00:00 Test Item Value Reference Range Interpretation Comments GLUCOSE (test code = 2217) 398 MG/DL BUN (test code = 2208) 39 MG/DL CREATININE (test code = 2214) 0.88 MG/DL eGFR AMER. (test code 88 ML/MIN/1.73 = 17131) eGFR NON- AMER. (test 76 ML/MIN/1.73 code = 99439) CALC BUN/CREAT (test code = 44 RATIO 2235) SODIUM (test code = 2231) 136 MEQ/L POTASSIUM (test code = 2228) 5.0 MEQ/L CHLORIDE (test code = 2215) 95 MEQ/L CARBON DIOXIDE (test code = 29 MEQ/L 220) CALCIUM (test code = 2209) 9.8 MG/DL PROTEIN, TOTAL (test code = 7.2 G/DL 2228) ALBUMIN (test code = 2201) 4.5 G/DL CALC GLOBULIN (test code = 2.7 G/DL 2240) CALC A/G RATIO (test code = 1.7 RATIO 2234) BILIRUBIN, TOTAL (test code = 0.1 MG/DL 2206) ALKALINE PHOSPHATASE (test 102 U/L code = 2204) AST (test code = 2218) 16 U/L ALT (test code = 2219) 13 U/L COMPREHENSIVE METABOLIC [id number] 00:00:00 Test Item Value Reference Range Interpretation Comments GLUCOSE (test code = 2217) 398 MG/DL BUN (test code = 2208) 39 MG/DL CREATININE (test code = 2214) 0.88 MG/DL eGFR AMER. (test code 88 ML/MIN/1.73 = 16078) eGFR NON- AMER. (test 76 ML/MIN/1.73 code = 92409) CALC BUN/CREAT (test code = 44 RATIO 2235) SODIUM (test code = 2231) 136 MEQ/L POTASSIUM (test code = 2228) 5.0 MEQ/L CHLORIDE (test code = 2215) 95 MEQ/L CARBON DIOXIDE (test code = 29 MEQ/L 2206) CALCIUM (test code = 2209) 9.8 MG/DL PROTEIN, TOTAL (test code = 7.2 G/DL 2228) ALBUMIN (test code = 2201) 4.5 G/DL CALC GLOBULIN (test code = 2.7 G/DL 2240) CALC A/G RATIO (test code = 1.7 RATIO 2234) BILIRUBIN, TOTAL (test code = 0.1 MG/DL 2206) ALKALINE PHOSPHATASE (test 102 U/L code = 2204) AST (test code = 2218) 16 U/L ALT (test code = 2219) 13 U/L LIPID [id number] 00:00:00 Test Item Value Reference Range Interpretation Comments CHOLESTEROL (test code = 2210) 255 MG/DL TRIGLYCERIDES (test code = 2232) 144 MG/DL HDL CHOLESTEROL (test code = 2220) 62 MG/DL CALC LDL CHOL (test code = 2237) 164 MG/DL RISK RATIO LDL/HDL (test code = 2.65 RATIO 2238) LIPID [id number] 00:00:00 Test Item Value Reference Range Interpretation Comments CHOLESTEROL (test code = 2210) 255 MG/DL TRIGLYCERIDES (test code = 2232) 144 MG/DL HDL CHOLESTEROL (test code = 2220) 62 MG/DL CALC LDL CHOL (test code = 2237) 164 MG/DL RISK RATIO LDL/HDL (test code = 2.65 RATIO 2238) HEMOGLOBIN [id number] 00:00:00 Test Item Value Reference Range Interpretation Comments HEMOGLOBIN A1c (test code = 82850) 12.9 % HEMOGLOBIN [id number] 00:00:00 Test Item Value Reference Range Interpretation Comments HEMOGLOBIN A1c (test code = 99121) 12.9 % HEMOGLOBIN [id number] 00:00:00 Test Item Value Reference Range Interpretation Comments HEMOGLOBIN A1c (test code = 04664) 12.9 % COMPREHENSIVE METABOLIC [id number] 00:00:00 Test Item Value Reference Range Interpretation Comments GLUCOSE (test code = 2217) 398 MG/DL BUN (test code = 2208) 39 MG/DL CREATININE (test code = 2214) 0.88 MG/DL eGFR AMER. (test code 88 ML/MIN/1.73 = 90284) eGFR NON- AMER. (test 76 ML/MIN/1.73 code = 22338) CALC BUN/CREAT (test code = 44 RATIO 2235) SODIUM (test code = 2231) 136 MEQ/L POTASSIUM (test code = 2228) 5.0 MEQ/L CHLORIDE (test code = 2215) 95 MEQ/L CARBON DIOXIDE (test code = 29 MEQ/L 2206) CALCIUM (test code = 2209) 9.8 MG/DL PROTEIN, TOTAL (test code = 7.2 G/DL 222) ALBUMIN (test code = 2201) 4.5 G/DL CALC GLOBULIN (test code = 2.7 G/DL 2240) CALC A/G RATIO (test code = 1.7 RATIO 2234) BILIRUBIN, TOTAL (test code = 0.1 MG/DL 2206) ALKALINE PHOSPHATASE (test 102 U/L code = 2204) AST (test code = 2218) 16 U/L ALT (test code = 2219) 13 U/L COMPREHENSIVE METABOLIC [id number] 00:00:00 Test Item Value Reference Range Interpretation Comments GLUCOSE (test code = 2217) 398 MG/DL BUN (test code = 2208) 39 MG/DL CREATININE (test code = 2214) 0.88 MG/DL eGFR AMER. (test code 88 ML/MIN/1.73 = 41597) eGFR NON- AMER. (test 76 ML/MIN/1.73 code = 83679) CALC BUN/CREAT (test code = 44 RATIO 2235) SODIUM (test code = 2231) 136 MEQ/L POTASSIUM (test code = 2228) 5.0 MEQ/L CHLORIDE (test code = 2215) 95 MEQ/L CARBON DIOXIDE (test code = 29 MEQ/L 2205) CALCIUM (test code = 2209) 9.8 MG/DL PROTEIN, TOTAL (test code = 7.2 G/DL 2228) ALBUMIN (test code = 2201) 4.5 G/DL CALC GLOBULIN (test code = 2.7 G/DL 2240) CALC A/G RATIO (test code = 1.7 RATIO 2234) BILIRUBIN, TOTAL (test code = 0.1 MG/DL 2206) ALKALINE PHOSPHATASE (test 102 U/L code = 2204) AST (test code = 2218) 16 U/L ALT (test code = 2219) 13 U/L LIPID [id number] 00:00:00 Test Item Value Reference Range Interpretation Comments CHOLESTEROL (test code = 2210) 255 MG/DL TRIGLYCERIDES (test code = 2232) 144 MG/DL HDL CHOLESTEROL (test code = 2220) 62 MG/DL CALC LDL CHOL (test code = 2237) 164 MG/DL RISK RATIO LDL/HDL (test code = 2.65 RATIO 2238) LIPID [id number] 00:00:00 Test Item Value Reference Range Interpretation Comments CHOLESTEROL (test code = 2210) 255 MG/DL TRIGLYCERIDES (test code = 2232) 144 MG/DL HDL CHOLESTEROL (test code = 2220) 62 MG/DL CALC LDL CHOL (test code = 2237) 164 MG/DL RISK RATIO LDL/HDL (test code = 2.65 RATIO 2238) HEMOGLOBIN [id number] 00:00:00 Test Item Value Reference Range Interpretation Comments HEMOGLOBIN A1c (test code = 77243) 12.9 % HEMOGLOBIN [id number] 00:00:00 Test Item Value Reference Range Interpretation Comments HEMOGLOBIN A1c (test code = 59948) 12.9 % HEMOGLOBIN [id number] 00:00:00 Test Item Value Reference Range Interpretation Comments HEMOGLOBIN A1c (test code = 00089) 12.9 % HEMOGLOBIN [id number] 00:00:00 Test Item Value Reference Range Interpretation Comments HEMOGLOBIN A1c (test code = 94633) 13.9 % CBC W/AUTO [id number] 00:00:00 Test Item Value Reference Range Interpretation Comments WBC (test code = 1001) 9.3 K/UL RBC (test code = 1002) 4.48 M/UL HEMOGLOBIN (test code = 1003) 13.2 G/DL HEMATOCRIT (test code = 1004) 39.1 % MCV (test code = 1005) 87.3 fL MCH (test code = 1006) 29.5 PG MCHC (test code = 1007) 33.8 G/DL RDW (test code = 1038) 12.8 % NEUTROPHILS (test code = 1008) 68.9 % LYMPHOCYTES (test code = 1010) 21.9 % MONOCYTES (test code = 1011) 6.8 % EOSINOPHILS (test code = 1012) 1.5 % BASOPHILS (test code = 1013) 0.9 % PLATELET COUNT (test code = 1015) 272 K/UL CBC W/AUTO [id number] 00:00:00 Test Item Value Reference Range Interpretation Comments WBC (test code = 1001) 9.3 K/UL RBC (test code = 1002) 4.48 M/UL HEMOGLOBIN (test code = 1003) 13.2 G/DL HEMATOCRIT (test code = 1004) 39.1 % MCV (test code = 1005) 87.3 fL MCH (test code = 1006) 29.5 PG MCHC (test code = 1007) 33.8 G/DL RDW (test code = 1038) 12.8 % NEUTROPHILS (test code = 1008) 68.9 % LYMPHOCYTES (test code = 1010) 21.9 % MONOCYTES (test code = 1011) 6.8 % EOSINOPHILS (test code = 1012) 1.5 % BASOPHILS (test code = 1013) 0.9 % PLATELET COUNT (test code = 1015) 272 K/UL CBC W/AUTO [id number] 00:00:00 Test Item Value Reference Range Interpretation Comments WBC (test code = 1001) 9.3 K/UL RBC (test code = 1002) 4.48 M/UL HEMOGLOBIN (test code = 1003) 13.2 G/DL HEMATOCRIT (test code = 1004) 39.1 % MCV (test code = 1005) 87.3 fL MCH (test code = 1006) 29.5 PG MCHC (test code = 1007) 33.8 G/DL RDW (test code = 1038) 12.8 % NEUTROPHILS (test code = 1008) 68.9 % LYMPHOCYTES (test code = 1010) 21.9 % MONOCYTES (test code = 1011) 6.8 % EOSINOPHILS (test code = 1012) 1.5 % BASOPHILS (test code = 1013) 0.9 % PLATELET COUNT (test code = 1015) 272 K/UL COMPREHENSIVE METABOLIC [id number] 00:00:00 Test Item Value Reference Range Interpretation Comments GLUCOSE (test code = 2217) 241 MG/DL BUN (test code = 2208) 21 MG/DL CREATININE (test code = 2214) 0.83 MG/DL eGFR AMER. (test code 94 ML/MIN/1.73 = 00955) eGFR NON- AMER. (test 81 ML/MIN/1.73 code = 68756) CALC BUN/CREAT (test code = 25 RATIO 2235) SODIUM (test code = 2231) 140 MEQ/L POTASSIUM (test code = 2228) 4.0 MEQ/L CHLORIDE (test code = 2215) 99 MEQ/L CARBON DIOXIDE (test code = 28 MEQ/L 2206) CALCIUM (test code = 2209) 10.0 MG/DL PROTEIN, TOTAL (test code = 7.6 G/DL 2229) ALBUMIN (test code = 2201) 4.7 G/DL CALC GLOBULIN (test code = 2.9 G/DL 2240) CALC A/G RATIO (test code = 1.6 RATIO 2234) BILIRUBIN, TOTAL (test code = 0.3 MG/DL 2207) ALKALINE PHOSPHATASE (test 121 U/L code = 2204) AST (test code = 2218) 13 U/L ALT (test code = 2219) 14 U/L COMPREHENSIVE METABOLIC [id number] 00:00:00 Test Item Value Reference Range Interpretation Comments GLUCOSE (test code = 2217) 241 MG/DL BUN (test code = 2208) 21 MG/DL CREATININE (test code = 2214) 0.83 MG/DL eGFR AMER. (test code 94 ML/MIN/1.73 = 96143) eGFR NON- AMER. (test 81 ML/MIN/1.73 code = 31637) CALC BUN/CREAT (test code = 25 RATIO 2235) SODIUM (test code = 2231) 140 MEQ/L POTASSIUM (test code = 2228) 4.0 MEQ/L CHLORIDE (test code = 2215) 99 MEQ/L CARBON DIOXIDE (test code = 28 MEQ/L 2206) CALCIUM (test code = 2209) 10.0 MG/DL PROTEIN, TOTAL (test code = 7.6 G/DL 2229) ALBUMIN (test code = 2201) 4.7 G/DL CALC GLOBULIN (test code = 2.9 G/DL 2240) CALC A/G RATIO (test code = 1.6 RATIO 2234) BILIRUBIN, TOTAL (test code = 0.3 MG/DL 2207) ALKALINE PHOSPHATASE (test 121 U/L code = 2204) AST (test code = 2218) 13 U/L ALT (test code = 2219) 14 U/L LIPID [id number] 00:00:00 Test Item Value Reference Range Interpretation Comments CHOLESTEROL (test code = 2210) 255 MG/DL TRIGLYCERIDES (test code = 2232) 116 MG/DL HDL CHOLESTEROL (test code = 2220) 75 MG/DL CALC LDL CHOL (test code = 2237) 157 MG/DL RISK RATIO LDL/HDL (test code = 2.09 RATIO 2238) LIPID [id number] 00:00:00 Test Item Value Reference Range Interpretation Comments CHOLESTEROL (test code = 2210) 255 MG/DL TRIGLYCERIDES (test code = 2232) 116 MG/DL HDL CHOLESTEROL (test code = 2220) 75 MG/DL CALC LDL CHOL (test code = 2237) 157 MG/DL RISK RATIO LDL/HDL (test code = 2.09 RATIO 2238) THYROID II PROFILE (T3U, T4, T7, TSH)2017-04-28 00:00:00 Test Item Value Reference Range Interpretation Comments T3 UPTAKE (test code = 2817) 32.8 % T4 (THYROXINE) (test code = 7.1 UG/DL 2819) CALCULATED T7 (FTI) (test code = 2.33 2820) TSH (test code = 2821) 0.892 UIU/ML THYROID II PROFILE (T3U, T4, T7, TSH)2017-04-28 00:00:00 Test Item Value Reference Range Interpretation Comments T3 UPTAKE (test code = 2817) 32.8 % T4 (THYROXINE) (test code = 7.1 UG/DL 2819) CALCULATED T7 (FTI) (test code = 2.33 2820) TSH (test code = 2821) 0.892 UIU/ML HEMOGLOBIN [id number] 00:00:00 Test Item Value Reference Range Interpretation Comments HEMOGLOBIN A1c (test code = 42070) 13.9 % HEMOGLOBIN [id number] 00:00:00 Test Item Value Reference Range Interpretation Comments HEMOGLOBIN A1c (test code = 60508) 13.9 % HEMOGLOBIN [id number] 00:00:00 Test Item Value Reference Range Interpretation Comments HEMOGLOBIN A1c (test code = 13980) 13.9 % CBC W/AUTO [id number] 00:00:00 Test Item Value Reference Range Interpretation Comments WBC (test code = 1001) 9.3 K/UL RBC (test code = 1002) 4.48 M/UL HEMOGLOBIN (test code = 1003) 13.2 G/DL HEMATOCRIT (test code = 1004) 39.1 % MCV (test code = 1005) 87.3 fL MCH (test code = 1006) 29.5 PG MCHC (test code = 1007) 33.8 G/DL RDW (test code = 1038) 12.8 % NEUTROPHILS (test code = 1008) 68.9 % LYMPHOCYTES (test code = 1010) 21.9 % MONOCYTES (test code = 1011) 6.8 % EOSINOPHILS (test code = 1012) 1.5 % BASOPHILS (test code = 1013) 0.9 % PLATELET COUNT (test code = 1015) 272 K/UL CBC W/AUTO [id number] 00:00:00 Test Item Value Reference Range Interpretation Comments WBC (test code = 1001) 9.3 K/UL RBC (test code = 1002) 4.48 M/UL HEMOGLOBIN (test code = 1003) 13.2 G/DL HEMATOCRIT (test code = 1004) 39.1 % MCV (test code = 1005) 87.3 fL MCH (test code = 1006) 29.5 PG MCHC (test code = 1007) 33.8 G/DL RDW (test code = 1038) 12.8 % NEUTROPHILS (test code = 1008) 68.9 % LYMPHOCYTES (test code = 1010) 21.9 % MONOCYTES (test code = 1011) 6.8 % EOSINOPHILS (test code = 1012) 1.5 % BASOPHILS (test code = 1013) 0.9 % PLATELET COUNT (test code = 1015) 272 K/UL CBC W/AUTO [id number] 00:00:00 Test Item Value Reference Range Interpretation Comments WBC (test code = 1001) 9.3 K/UL RBC (test code = 1002) 4.48 M/UL HEMOGLOBIN (test code = 1003) 13.2 G/DL HEMATOCRIT (test code = 1004) 39.1 % MCV (test code = 1005) 87.3 fL MCH (test code = 1006) 29.5 PG MCHC (test code = 1007) 33.8 G/DL RDW (test code = 1038) 12.8 % NEUTROPHILS (test code = 1008) 68.9 % LYMPHOCYTES (test code = 1010) 21.9 % MONOCYTES (test code = 1011) 6.8 % EOSINOPHILS (test code = 1012) 1.5 % BASOPHILS (test code = 1013) 0.9 % PLATELET COUNT (test code = 1015) 272 K/UL COMPREHENSIVE METABOLIC [id number] 00:00:00 Test Item Value Reference Range Interpretation Comments GLUCOSE (test code = 2217) 241 MG/DL BUN (test code = 2208) 21 MG/DL CREATININE (test code = 2214) 0.83 MG/DL eGFR AMER. (test code 94 ML/MIN/1.73 = 32232) eGFR NON- AMER. (test 81 ML/MIN/1.73 code = 36517) CALC BUN/CREAT (test code = 25 RATIO 2235) SODIUM (test code = 2231) 140 MEQ/L POTASSIUM (test code = 2228) 4.0 MEQ/L CHLORIDE (test code = 2215) 99 MEQ/L CARBON DIOXIDE (test code = 28 MEQ/L 220) CALCIUM (test code = 2209) 10.0 MG/DL PROTEIN, TOTAL (test code = 7.6 G/DL 222) ALBUMIN (test code = 2201) 4.7 G/DL CALC GLOBULIN (test code = 2.9 G/DL 2240) CALC A/G RATIO (test code = 1.6 RATIO 2234) BILIRUBIN, TOTAL (test code = 0.3 MG/DL 2206) ALKALINE PHOSPHATASE (test 121 U/L code = 2204) AST (test code = 2218) 13 U/L ALT (test code = 2219) 14 U/L COMPREHENSIVE METABOLIC [id number] 00:00:00 Test Item Value Reference Range Interpretation Comments GLUCOSE (test code = 2217) 241 MG/DL BUN (test code = 2208) 21 MG/DL CREATININE (test code = 2214) 0.83 MG/DL eGFR AMER. (test code 94 ML/MIN/1.73 = 75898) eGFR NON- AMER. (test 81 ML/MIN/1.73 code = 87610) CALC BUN/CREAT (test code = 25 RATIO 2235) SODIUM (test code = 2231) 140 MEQ/L POTASSIUM (test code = 2228) 4.0 MEQ/L CHLORIDE (test code = 2215) 99 MEQ/L CARBON DIOXIDE (test code = 28 MEQ/L 2206) CALCIUM (test code = 2209) 10.0 MG/DL PROTEIN, TOTAL (test code = 7.6 G/DL 2229) ALBUMIN (test code = 2201) 4.7 G/DL CALC GLOBULIN (test code = 2.9 G/DL 2240) CALC A/G RATIO (test code = 1.6 RATIO 2234) BILIRUBIN, TOTAL (test code = 0.3 MG/DL 2207) ALKALINE PHOSPHATASE (test 121 U/L code = 2204) AST (test code = 2218) 13 U/L ALT (test code = 2219) 14 U/L LIPID [id number] 00:00:00 Test Item Value Reference Range Interpretation Comments CHOLESTEROL (test code = 2210) 255 MG/DL TRIGLYCERIDES (test code = 2232) 116 MG/DL HDL CHOLESTEROL (test code = 2220) 75 MG/DL CALC LDL CHOL (test code = 2237) 157 MG/DL RISK RATIO LDL/HDL (test code = 2.09 RATIO 2238) LIPID [id number] 00:00:00 Test Item Value Reference Range Interpretation Comments CHOLESTEROL (test code = 2210) 255 MG/DL TRIGLYCERIDES (test code = 2232) 116 MG/DL HDL CHOLESTEROL (test code = 2220) 75 MG/DL CALC LDL CHOL (test code = 2237) 157 MG/DL RISK RATIO LDL/HDL (test code = 2.09 RATIO 2238) THYROID II PROFILE (T3U, T4, T7, TSH)2017-04-28 00:00:00 Test Item Value Reference Range Interpretation Comments T3 UPTAKE (test code = 2817) 32.8 % T4 (THYROXINE) (test code = 7.1 UG/DL 2819) CALCULATED T7 (FTI) (test code = 2.33 2820) TSH (test code = 2821) 0.892 UIU/ML THYROID II PROFILE (T3U, T4, T7, TSH)2017-04-28 00:00:00 Test Item Value Reference Range Interpretation Comments T3 UPTAKE (test code = 2817) 32.8 % T4 (THYROXINE) (test code = 7.1 UG/DL 2819) CALCULATED T7 (FTI) (test code = 2.33 2820) TSH (test code = 2821) 0.892 UIU/ML HEMOGLOBIN [id number] 00:00:00 Test Item Value Reference Range Interpretation Comments HEMOGLOBIN A1c (test code = 71689) 13.9 % HEMOGLOBIN [id number] 00:00:00 Test Item Value Reference Range Interpretation Comments HEMOGLOBIN A1c (test code = 70506) 13.9 % HEMOGLOBIN [id number] 00:00:00 Test Item Value Reference Range Interpretation Comments HEMOGLOBIN A1c (test code = 99389) 13.9 % CBC W/AUTO [id number] 00:00:00 Test Item Value Reference Range Interpretation Comments WBC (test code = 1001) 9.3 K/UL RBC (test code = 1002) 4.48 M/UL HEMOGLOBIN (test code = 1003) 13.2 G/DL HEMATOCRIT (test code = 1004) 39.1 % MCV (test code = 1005) 87.3 fL MCH (test code = 1006) 29.5 PG MCHC (test code = 1007) 33.8 G/DL RDW (test code = 1038) 12.8 % NEUTROPHILS (test code = 1008) 68.9 % LYMPHOCYTES (test code = 1010) 21.9 % MONOCYTES (test code = 1011) 6.8 % EOSINOPHILS (test code = 1012) 1.5 % BASOPHILS (test code = 1013) 0.9 % PLATELET COUNT (test code = 1015) 272 K/UL CBC W/AUTO [id number] 00:00:00 Test Item Value Reference Range Interpretation Comments WBC (test code = 1001) 9.3 K/UL RBC (test code = 1002) 4.48 M/UL HEMOGLOBIN (test code = 1003) 13.2 G/DL HEMATOCRIT (test code = 1004) 39.1 % MCV (test code = 1005) 87.3 fL MCH (test code = 1006) 29.5 PG MCHC (test code = 1007) 33.8 G/DL RDW (test code = 1038) 12.8 % NEUTROPHILS (test code = 1008) 68.9 % LYMPHOCYTES (test code = 1010) 21.9 % MONOCYTES (test code = 1011) 6.8 % EOSINOPHILS (test code = 1012) 1.5 % BASOPHILS (test code = 1013) 0.9 % PLATELET COUNT (test code = 1015) 272 K/UL CBC W/AUTO [id number] 00:00:00 Test Item Value Reference Range Interpretation Comments WBC (test code = 1001) 9.3 K/UL RBC (test code = 1002) 4.48 M/UL HEMOGLOBIN (test code = 1003) 13.2 G/DL HEMATOCRIT (test code = 1004) 39.1 % MCV (test code = 1005) 87.3 fL MCH (test code = 1006) 29.5 PG MCHC (test code = 1007) 33.8 G/DL RDW (test code = 1038) 12.8 % NEUTROPHILS (test code = 1008) 68.9 % LYMPHOCYTES (test code = 1010) 21.9 % MONOCYTES (test code = 1011) 6.8 % EOSINOPHILS (test code = 1012) 1.5 % BASOPHILS (test code = 1013) 0.9 % PLATELET COUNT (test code = 1015) 272 K/UL COMPREHENSIVE METABOLIC [id number] 00:00:00 Test Item Value Reference Range Interpretation Comments GLUCOSE (test code = 2217) 241 MG/DL BUN (test code = 2208) 21 MG/DL CREATININE (test code = 2214) 0.83 MG/DL eGFR AMER. (test code 94 ML/MIN/1.73 = 05043) eGFR NON- AMER. (test 81 ML/MIN/1.73 code = 02689) CALC BUN/CREAT (test code = 25 RATIO 2235) SODIUM (test code = 2231) 140 MEQ/L POTASSIUM (test code = 2228) 4.0 MEQ/L CHLORIDE (test code = 2215) 99 MEQ/L CARBON DIOXIDE (test code = 28 MEQ/L 2206) CALCIUM (test code = 2209) 10.0 MG/DL PROTEIN, TOTAL (test code = 7.6 G/DL 2229) ALBUMIN (test code = 2201) 4.7 G/DL CALC GLOBULIN (test code = 2.9 G/DL 2240) CALC A/G RATIO (test code = 1.6 RATIO 2234) BILIRUBIN, TOTAL (test code = 0.3 MG/DL 220) ALKALINE PHOSPHATASE (test 121 U/L code = 2204) AST (test code = 2218) 13 U/L ALT (test code = 2219) 14 U/L COMPREHENSIVE METABOLIC [id number] 00:00:00 Test Item Value Reference Range Interpretation Comments GLUCOSE (test code = 2217) 241 MG/DL BUN (test code = 2208) 21 MG/DL CREATININE (test code = 2214) 0.83 MG/DL eGFR AMER. (test code 94 ML/MIN/1.73 = 08581) eGFR NON- AMER. (test 81 ML/MIN/1.73 code = 26192) CALC BUN/CREAT (test code = 25 RATIO 2235) SODIUM (test code = 2231) 140 MEQ/L POTASSIUM (test code = 2228) 4.0 MEQ/L CHLORIDE (test code = 2215) 99 MEQ/L CARBON DIOXIDE (test code = 28 MEQ/L 2205) CALCIUM (test code = 2209) 10.0 MG/DL PROTEIN, TOTAL (test code = 7.6 G/DL 2228) ALBUMIN (test code = 2201) 4.7 G/DL CALC GLOBULIN (test code = 2.9 G/DL 224) CALC A/G RATIO (test code = 1.6 RATIO 2234) BILIRUBIN, TOTAL (test code = 0.3 MG/DL 2206) ALKALINE PHOSPHATASE (test 121 U/L code = 2204) AST (test code = 2218) 13 U/L ALT (test code = 2219) 14 U/L LIPID [id number] 00:00:00 Test Item Value Reference Range Interpretation Comments CHOLESTEROL (test code = 2210) 255 MG/DL TRIGLYCERIDES (test code = 2232) 116 MG/DL HDL CHOLESTEROL (test code = 2220) 75 MG/DL CALC LDL CHOL (test code = 2237) 157 MG/DL RISK RATIO LDL/HDL (test code = 2.09 RATIO 2238) LIPID [id number] 00:00:00 Test Item Value Reference Range Interpretation Comments CHOLESTEROL (test code = 2210) 255 MG/DL TRIGLYCERIDES (test code = 2232) 116 MG/DL HDL CHOLESTEROL (test code = 2220) 75 MG/DL CALC LDL CHOL (test code = 2237) 157 MG/DL RISK RATIO LDL/HDL (test code = 2.09 RATIO 2238) THYROID II PROFILE (T3U, T4, T7, TSH)[id number] 00:00:00 Test Item Value Reference Range Interpretation Comments T3 UPTAKE (test code = 2817) 32.8 % T4 (THYROXINE) (test code = 7.1 UG/DL 2818) CALCULATED T7 (FTI) (test code = 2.33 0) TSH (test code = 2821) 0.892 UIU/ML THYROID II PROFILE (T3U, T4, T7, TSH)2017-04-28 00:00:00 Test Item Value Reference Range Interpretation Comments T3 UPTAKE (test code = 2817) 32.8 % T4 (THYROXINE) (test code = 7.1 UG/DL 2819) CALCULATED T7 (FTI) (test code = 2.33 2820) TSH (test code = 2821) 0.892 UIU/ML HEMOGLOBIN [id number] 00:00:00 Test Item Value Reference Range Interpretation Comments HEMOGLOBIN A1c (test code = 91047) 13.9 % HEMOGLOBIN [id number] 00:00:00 Test Item Value Reference Range Interpretation Comments HEMOGLOBIN A1c (test code = 18688) 13.9 % HEMOGLOBIN [id number] 00:00:00 Test Item Value Reference Range Interpretation Comments HEMOGLOBIN A1c (test code = 72273) 13.9 % CBC W/AUTO [id number] 00:00:00 Test Item Value Reference Range Interpretation Comments WBC (test code = 1001) 9.3 K/UL RBC (test code = 1002) 4.48 M/UL HEMOGLOBIN (test code = 1003) 13.2 G/DL HEMATOCRIT (test code = 1004) 39.1 % MCV (test code = 1005) 87.3 fL MCH (test code = 1006) 29.5 PG MCHC (test code = 1007) 33.8 G/DL RDW (test code = 1038) 12.8 % NEUTROPHILS (test code = 1008) 68.9 % LYMPHOCYTES (test code = 1010) 21.9 % MONOCYTES (test code = 1011) 6.8 % EOSINOPHILS (test code = 1012) 1.5 % BASOPHILS (test code = 1013) 0.9 % PLATELET COUNT (test code = 1015) 272 K/UL CBC W/AUTO [id number] 00:00:00 Test Item Value Reference Range Interpretation Comments WBC (test code = 1001) 9.3 K/UL RBC (test code = 1002) 4.48 M/UL HEMOGLOBIN (test code = 1003) 13.2 G/DL HEMATOCRIT (test code = 1004) 39.1 % MCV (test code = 1005) 87.3 fL MCH (test code = 1006) 29.5 PG MCHC (test code = 1007) 33.8 G/DL RDW (test code = 1038) 12.8 % NEUTROPHILS (test code = 1008) 68.9 % LYMPHOCYTES (test code = 1010) 21.9 % MONOCYTES (test code = 1011) 6.8 % EOSINOPHILS (test code = 1012) 1.5 % BASOPHILS (test code = 1013) 0.9 % PLATELET COUNT (test code = 1015) 272 K/UL CBC W/AUTO [id number] 00:00:00 Test Item Value Reference Range Interpretation Comments WBC (test code = 1001) 9.3 K/UL RBC (test code = 1002) 4.48 M/UL HEMOGLOBIN (test code = 1003) 13.2 G/DL HEMATOCRIT (test code = 1004) 39.1 % MCV (test code = 1005) 87.3 fL MCH (test code = 1006) 29.5 PG MCHC (test code = 1007) 33.8 G/DL RDW (test code = 1038) 12.8 % NEUTROPHILS (test code = 1008) 68.9 % LYMPHOCYTES (test code = 1010) 21.9 % MONOCYTES (test code = 1011) 6.8 % EOSINOPHILS (test code = 1012) 1.5 % BASOPHILS (test code = 1013) 0.9 % PLATELET COUNT (test code = 1015) 272 K/UL COMPREHENSIVE METABOLIC [id number] 00:00:00 Test Item Value Reference Range Interpretation Comments GLUCOSE (test code = 2217) 241 MG/DL BUN (test code = 2208) 21 MG/DL CREATININE (test code = 2214) 0.83 MG/DL eGFR AMER. (test code 94 ML/MIN/1.73 = 97644) eGFR NON- AMER. (test 81 ML/MIN/1.73 code = 38234) CALC BUN/CREAT (test code = 25 RATIO 2235) SODIUM (test code = 2231) 140 MEQ/L POTASSIUM (test code = 2228) 4.0 MEQ/L CHLORIDE (test code = 2215) 99 MEQ/L CARBON DIOXIDE (test code = 28 MEQ/L 2206) CALCIUM (test code = 2209) 10.0 MG/DL PROTEIN, TOTAL (test code = 7.6 G/DL 2228) ALBUMIN (test code = 2201) 4.7 G/DL CALC GLOBULIN (test code = 2.9 G/DL 2240) CALC A/G RATIO (test code = 1.6 RATIO 2234) BILIRUBIN, TOTAL (test code = 0.3 MG/DL 2206) ALKALINE PHOSPHATASE (test 121 U/L code = 2204) AST (test code = 2218) 13 U/L ALT (test code = 2219) 14 U/L COMPREHENSIVE METABOLIC [id number] 00:00:00 Test Item Value Reference Range Interpretation Comments GLUCOSE (test code = 2217) 241 MG/DL BUN (test code = 2208) 21 MG/DL CREATININE (test code = 2214) 0.83 MG/DL eGFR AMER. (test code 94 ML/MIN/1.73 = 77669) eGFR NON- AMER. (test 81 ML/MIN/1.73 code = 22973) CALC BUN/CREAT (test code = 25 RATIO 2235) SODIUM (test code = 2231) 140 MEQ/L POTASSIUM (test code = 2228) 4.0 MEQ/L CHLORIDE (test code = 2215) 99 MEQ/L CARBON DIOXIDE (test code = 28 MEQ/L 2205) CALCIUM (test code = 2209) 10.0 MG/DL PROTEIN, TOTAL (test code = 7.6 G/DL 2228) ALBUMIN (test code = 2201) 4.7 G/DL CALC GLOBULIN (test code = 2.9 G/DL 2240) CALC A/G RATIO (test code = 1.6 RATIO 2234) BILIRUBIN, TOTAL (test code = 0.3 MG/DL 2206) ALKALINE PHOSPHATASE (test 121 U/L code = 2204) AST (test code = 2218) 13 U/L ALT (test code = 2219) 14 U/L LIPID [id number] 00:00:00 Test Item Value Reference Range Interpretation Comments CHOLESTEROL (test code = 2210) 255 MG/DL TRIGLYCERIDES (test code = 2232) 116 MG/DL HDL CHOLESTEROL (test code = 2220) 75 MG/DL CALC LDL CHOL (test code = 2237) 157 MG/DL RISK RATIO LDL/HDL (test code = 2.09 RATIO 2238) LIPID [id number] 00:00:00 Test Item Value Reference Range Interpretation Comments CHOLESTEROL (test code = 2210) 255 MG/DL TRIGLYCERIDES (test code = 2232) 116 MG/DL HDL CHOLESTEROL (test code = 2220) 75 MG/DL CALC LDL CHOL (test code = 2237) 157 MG/DL RISK RATIO LDL/HDL (test code = 2.09 RATIO 2238) THYROID II PROFILE (T3U, T4, T7, TSH)[id number] 00:00:00 Test Item Value Reference Range Interpretation Comments T3 UPTAKE (test code = 2817) 32.8 % T4 (THYROXINE) (test code = 7.1 UG/DL 2819) CALCULATED T7 (FTI) (test code = 2.33 2820) TSH (test code = 2821) 0.892 UIU/ML THYROID II PROFILE (T3U, T4, T7, TSH)2017-04-28 00:00:00 Test Item Value Reference Range Interpretation Comments T3 UPTAKE (test code = 2817) 32.8 % T4 (THYROXINE) (test code = 7.1 UG/DL 2819) CALCULATED T7 (FTI) (test code = 2.33 2820) TSH (test code = 2821) 0.892 UIU/ML HEMOGLOBIN [id number] 00:00:00 Test Item Value Reference Range Interpretation Comments HEMOGLOBIN A1c (test code = 35032) 13.9 % HEMOGLOBIN [id number] 00:00:00 Test Item Value Reference Range Interpretation Comments HEMOGLOBIN A1c (test code = 81196) 13.9 %
--- NOTE | 2022-11-13 13:22 | RAD REPORT ---
EXAM DESCRIPTION: RAD - Chest Single View - 11/13/2022 12:56 pm CLINICAL HISTORY: hyperglycemia, dizziness, shortness of breath COMPARISON: Portable 05/04/2021 TECHNIQUE: AP portable chest image was obtained 11/13/2022 12:56 pm . FINDINGS: No acute focal lung parenchymal process. Interstitial pattern matches comparison. No new h ilar mass or lymphadenopathy. Heart and vasculature are normal. No measurable pleural effusion and no pneumothorax. No acute bony abnormality seen. No acute aortic findings suspected. IMPRESSION: No acute cardiopulmonary process. No significant change from comparison study.
[2022-11-13 13:26] LABS: Absolute Lymphocytes (CBC) 2.3 K/uL (0.7-4.9); Hematocrit 28.7 % (36.0-45.0); MCV 86.3 fL (80-100); MPV 9.7 fL (7.6-11.3); RBC Red Blood Cell Count 3.33 M/uL (3.86-4.86)
[2022-11-13 13:27] LABS: Urine Blood Negative (Negative); Urine Glucose 3+ (Negative); Urine Protein 1+ (Negative); Urine Specific Gravity 1.015 (1.005-1.030); Urine pH 5.5 (5.0-7.0)
[2022-11-13 13:32] LABS: Protime INR 0.95
[2022-11-13 13:43] LABS: Bilirubin Total 0.2 mg/dL (0.2-1.0); Potassium 4.6 mmol/L (3.5-5.1); Protein, Total 8.5 g/dL (6.4-8.2)
[2022-11-13 13:51] LABS: Urine Bacteria <20 /HPF (<20); Urine Mucus Slight /HPF (None Seen); Urine RBC <5 /HPF (None Seen)
--- NOTE | 2022-11-13 14:16 | EDPHYS ---
Physician Documentation [facility] Name: Khris Salazar Age: 56 yrs Sex: Female : 1965 Arrival Date: 11/13/2022 Time: 12:13 Bed 17 Private MD: SAFIA Physician Stuart Taylor HPI: 11/13 13:11 This 56 yrs old Female presents to ER via Ambulatory with complaints of snw Decreased Appetite, High Blood Sugar, Dizziness, Nausea. 13:11 PCP changed levemir and novolog to levemir and victoza last week. Pt states she has snw been feeling terrible since. nausea, anorexia, increased blood sugar. Onset: The symptoms/episode began/occurred acutely. Severity of symptoms: At their worst the symptoms were moderate. The patient has not experienced similar symptoms in the past. as noted. Historical: - Allergies: 12:21 No Known Allergies; iw - Home Meds: 17:32 Levemir FlexTouch U-100 Insuln 100 unit/mL (3 mL) subcutaneous inpn 40 unit nightly eh3 [Active]; Levemir FlexTouch U-100 Insuln 100 unit/mL (3 mL) subcutaneous inpn 50 unit daily [Active]; losartan-hydrochlorothiazide 100-12.5 mg oral tab 1 tab once daily [Active]; Victoza 2-Arian 0.6 mg/0.1 mL (18 mg/3 mL) subcutaneous pnij [Active]; - PMHx: 12:21 Diabetes - IDDM; Hypertension; iw - Immunization history:: Client reports having NOT received the Covid vaccine. - Social history:: Smoking status: Patient denies any tobacco usage or history of. ROS: 13:20 Eyes: Negative for injury, pain, redness, and discharge, ENT: Negative for injury, snw pain, and discharge, Neck: Negative for injury, pain, and swelling, Cardiovascular: Negative for chest pain, palpitations, and edema, Respiratory: Negative for shortness of breath, cough, wheezing, and pleuritic chest pain. 13:20 Back: Negative for injury and pain, : Negative for injury, bleeding, discharge, and swelling, MS/Extremity: Negative for injury and deformity, Skin: Negative for injury, rash, and discoloration, Neuro: Negative for headache, weakness, numbness, tingling, and seizure, Psych: Negative for depression, anxiety, suicide ideation, homicidal ideation, and hallucinations. 13:20 Constitutional: Positive for fatigue, malaise. 13:20 Abdomen/GI: Positive for nausea. Exam: 13:11 Constitutional: This is a well developed, well nourished patient who is awake, alert, snw and in no acute distress. Head/Face: Normocephalic, atraumatic. Eyes: Pupils equal round and reactive to light, extra-ocular motions intact. Lids and lashes normal. Conjunctiva and sclera are non-icteric and not injected. Cornea within normal limits. Periorbital areas with no swelling, redness, or edema. ENT: Nares patent. No nasal discharge, no septal abnormalities noted. Tympanic membranes are normal and external auditory canals are clear. Oropharynx with no redness, swelling, or masses, exudates, or evidence of obstruction, uvula midline. Mucous membranes moist. Neck: Trachea midline, no thyromegaly or masses palpated, and no cervical lymphadenopathy. Supple, full range of motion without nuchal rigidity, or vertebral point tenderness. No Meningismus. Chest/axilla: Normal chest wall appearance and motion. Nontender with no deformity. No lesions are appreciated. Cardiovascular: Regular rate and rhythm with a normal S1 and S2. No gallops, murmurs, or rubs. Normal PMI, no JVD. No pulse deficits. Respiratory: Lungs have equal breath sounds bilaterally, clear to auscultation and percussion. No rales, rhonchi or wheezes noted. No increased work of breathing, no retractions or nasal flaring. Abdomen/GI: Soft, non-tender, with normal bowel sounds. No distension or tympany. No guarding or rebound. No evidence of tenderness throughout. Back: No spinal tenderness. No costovertebral tenderness. Full range of motion. Skin: Warm, dry with normal turgor. Normal color with no rashes, no lesions, and no evidence of cellulitis. MS/ Extremity: Pulses equal, no cyanosis. Neurovascular intact. Full, normal range of motion. Neuro: Awake and alert, GCS 15, oriented to person, place, time, and situation. Cranial nerves II-XII grossly intact. Motor strength 5/5 in all extremities. Sensory grossly intact. Cerebellar exam normal. Normal gait. Psych: Awake, alert, with orientation to person, place and time. Behavior, mood, and affect are within normal limits. Vital Signs: 12:19 BP 151 / 87; Pulse 98; Resp 16; Temp 98.2; Pulse Ox 100% on R/A; Weight 72.12 kg; iw Height 5 ft. 1 in. (154.94 cm); 12:46 BP 143 / 77; Pulse 90; Resp 18; Pulse Ox 99% on R/A; eh3 13:45 BP 116 / 67; Pulse 90; Resp 18; Pulse Ox 99% on R/A; eh3 14:45 BP 115 / 71; Pulse 94; Resp 14; Pulse Ox 99% on R/A; eh3 15:45 BP 131 / 72; Pulse 96; Resp 20; Pulse Ox 99% on R/A; eh3 16:45 BP 118 / 73; Pulse 103; Resp 18; Pulse Ox 98% on R/A; eh3 12:19 Body Mass Index 30.04 (72.12 kg, 154.94 cm) iw MDM: 12:34 Patient medically screened. [facility] 14:06 Differential Diagnosis sepsis, hyperglycemia. Data reviewed: vital signs, nurses notes, snw lab test result(s), EKG, radiologic studies. Consideration of Admission/Observation Patient was admitted/placed on observation. request made to hospitalist services for IDDM with hyperglycemia, trevon. 14:16 Management of patient was discussed with the following: Hospitalist: MAURA Weber for snw Dr. Pal. I considered the following discharge prescriptions or medication management in the emergency department Medications were administered in the Emergency Department. See MAR. Care significantly affected by the following chronic conditions: Diabetes. 11/13 12:35 Order name: Blood Culture Adult (2) [facility] 11/13 12:35 Order name: CBC with Diff; Complete Time: 13:32 snw 11/13 12:35 Order name: CMP; Complete Time: 13:47 snw 11/13 12:35 Order name: Lactate w/ 2H reflex if indic.; Complete Time: 13:48 snw 11/13 12:35 Order name: Protime (+inr); Complete Time: 13:34 snw 11/13 12:35 Order name: Ptt, Activated; Complete Time: 13:34 snw 11/13 12:35 Order name: Urine Culture snw 11/13 12:35 Order name: Urine Microscopic Only; Complete Time: 13:53 snw 11/13 12:56 Order name: Glucose, Ancillary Testing; Complete Time: 12:57 EDMS 11/13 13:28 Order name: Urine Dipstick-Ancillary; Complete Time: 13:29 EDMS 11/13 14:02 Order name: SARS RAPID; Complete Time: 14:50 snw 11/13 16:15 Order name: Glucose, Ancillary Testing; Complete Time: 16:20 EDMS 11/13 16:36 Order name: T4 Free; Complete Time: 18:20 EDMS 11/13 16:36 Order name: Thyroid Stimulating Hormone; Complete Time: 18:20 EDMS 11/13 12:35 Order name: Chest Single View XRAY; Complete Time: 13:22 snw 11/13 12:35 Order name: EKG; Complete Time: 12:36 snw 11/13 15:57 Order name: Diet Ada 1800 Twin; Complete Time: 15:57 eh3 11/13 16:36 Order name: Urinalysis EDMS 11/13 16:37 Order name: Basic Metabolic Panel EDMS 11/13 16:37 Order name: Basic Metabolic Panel EDMS 11/13 16:37 Order name: CBC with Automated Diff EDMS 11/13 16:37 Order name: CBC with Automated Diff EDMS 11/13 16:58 Order name: Glucose, Ancillary Testing; Complete Time: 16:58 EDMS 11/13 21:50 Order name: Glucose, Ancillary Testing EDMS 11/14 03:19 Order name: Uric Acid EDMS 11/14 03:19 Order name: Phosphorus EDMS 11/14 03:19 Order name: Magnesium EDMS 11/14 03:41 Order name: Hemoglobin A1c EDMS 11/13 12:35 Order name: Accucheck; Complete Time: 12:45 snw 11/13 12:35 Order name: Cardiac monitoring; Complete Time: 13:10 snw 11/13 12:35 Order name: EKG - Nurse/Tech; Complete Time: 13:02 snw 11/13 12:35 Order name: IV Saline Lock - Large Bore; Complete Time: 13:10 snw 11/13 12:35 Order name: Labs collected and sent; Complete Time: 13:10 snw 11/13 12:35 Order name: O2 Per Protocol; Complete Time: 12:46 snw 11/13 12:35 Order name: O2 Sat Monitoring; Complete Time: 12:46 snw 11/13 12:35 Order name: Vital Signs; Complete Time: 12:46 snw 11/13 16:20 Order name: PO challenge; Complete Time: 16:39 snw Administered Medications: 14:30 Drug: Insulin Regular Human 5 units {Co-Signature: mo (Magalys Falcon RN).} Route: eh3 IVP; Site: left antecubital; 16:05 Follow up: Response: Blood sugar is lowered [facility] 14:30 Drug: NS 0.9% 1000 ml Route: IV; Rate: 125 ml/hr; Site: left antecubital; [facility] Disposition Summary: 11/13/22 14:16 Hospitalization Ordered Hospitalization Status: Observation snw Provider: Raji Pal sngumaro Condition: Stable snw Problem: an acute exacerbation snw Symptoms: are unchanged snw Bed/Room Type: Standard snw Location: Telemetry/MedSurg (observation)(11/14/22 07:11) mw2 Room Assignment: 410(11/14/22 07:11) mw2 Diagnosis - Diabetes mellitus due to underlying condition with hyperglycemia snw - Acute Kidney Injury snw - Anemia, unspecified snw Forms: - Medication Reconciliation Form snw - SBAR form snw Addendum: 11/17/2022 13:27 Co-signature as Attending Physician, Stuart Taylor MD I agree with the assessment and c swenson plan of care. Signatures: Dispatcher [employer] EDStuart Ibarra MD MD cha Waters, Shelly, NURSERY NURSE-C NURSERY NURSE-Csnw Kaitlin Leo, RN CIARRA Alona Teresa RN RN Toño Guzman mw2 Bobbi Fung RN RN 3 Magalys [email or web address] Corrections: (The following items were deleted from the chart) 11/13 18:55 14:16 Telemetry/MedSurg (observation) snw cg 18:55 14:16 snw cg 11/14 07:11 11/13 18:55 [facility] ER HOLD cg 2 11/14 07:11 11/13 18:55 ERHOLD- cg [facility]
--- NOTE | 2022-11-13 14:16 | ER ---
Nurse's Notes [facility] Name: Khris Salazar Age: 56 yrs Sex: Female : 1965 Arrival Date: 11/13/2022 Time: 12:13 Bed 17 Private MD: Diagnosis: Diabetes mellitus due to underlying condition with hyperglycemia;Acute Kidney Injury;Anemia, unspecified Presentation: 11/13 12:19 Chief complaint: Patient states: went to see doctor Sunday , was started on new iw medicine (victoza) my sugars have been high and im nauseous and dizzy, called her doctor and was told to [facility], goes to [facility]. Coronavirus screen: At this time, the client does not indicate any symptoms associated with coronavirus-19. Ebola Screen: Patient negative for fever greater than or equal to 101.5 degrees Fahrenheit, and additional compatible Ebola Virus Disease symptoms Patient denies exposure to infectious person. Patient denies travel to an Ebola-affected area in the 21 days before illness onset. No symptoms or risks identified at this time. Initial Sepsis Screen: Does the patient meet any 2 criteria? No. Patient's initial sepsis screen is negative. Does the patient have a suspected source of infection? No. Patient's initial sepsis screen is negative. Risk Assessment: Do you want to hurt yourself or someone else? Patient reports no desire to harm self or others. Onset of symptoms was November 13, 2022. 12:19 Method Of Arrival: Ambulatory iw 12:19 Acuity: DINO 3 iw Triage Assessment: 17:34 General: Behavior is. eh3 Historical: - Allergies: 12:21 No Known Allergies; iw - Home Meds: 17:32 Levemir FlexTouch U-100 Insuln 100 unit/mL (3 mL) subcutaneous inpn 40 unit nightly eh3 [Active]; Levemir FlexTouch U-100 Insuln 100 unit/mL (3 mL) subcutaneous inpn 50 unit daily [Active]; losartan-hydrochlorothiazide 100-12.5 mg oral tab 1 tab once daily [Active]; Victoza 2-Arian 0.6 mg/0.1 mL (18 mg/3 mL) subcutaneous pnij [Active]; - PMHx: 12:21 Diabetes - IDDM; Hypertension; iw - Immunization history:: Client reports having NOT received the Covid vaccine. - Social history:: Smoking status: Patient denies any tobacco usage or history of. Screenin:30 [facility] ED Fall Risk Assessment (Adult) History of falling in the last 3 months, 3 including since admission No falls in past 3 months (0 pts) Confusion or Disorientation No (0 pts) Intoxicated or Sedated No (0 pts) Impaired Gait No (0 pts) Mobility Assist Device Used No (0 pt) Altered Elimination No (0 pt) Score/Fall Risk Level 0 - 2 = Low Risk. Abuse screen: Denies threats or abuse. Denies injuries from another. Nutritional screening: No deficits noted. Tuberculosis screening: No symptoms or risk factors identified. Assessment: 12:30 General: Appears in no apparent distress. uncomfortable. Pain: Denies pain. Neuro: eh3 Level of Consciousness is awake, alert, obeys commands, Oriented to person, place, time, situation. Neuro: Reports dizziness. Cardiovascular: Capillary refill < 3 seconds Patient's skin is warm and dry. Respiratory: Airway is patent Respiratory effort is even, unlabored, Respiratory pattern is regular, symmetrical. GI: Abdomen is round non-distended, Reports nausea, vomiting. : No signs and/or symptoms were reported regarding the genitourinary system. EENT: No signs and/or symptoms were reported regarding the EENT system. Derm: No signs and/or symptoms reported regarding the dermatologic system. Musculoskeletal: No signs and/or symptoms reported regarding the musculoskeletal system. 13:45 Reassessment: Patient appears in no apparent distress at this time. Patient and/or 3 family updated on plan of care and expected duration. Pain level reassessed. Patient is alert, oriented x 3, equal unlabored respirations, skin warm/dry/pink. 14:45 Reassessment: Patient appears in no apparent distress at this time. Patient and/or eh3 family updated on plan of care and expected duration. Pain level reassessed. Patient is alert, oriented x 3, equal unlabored respirations, skin warm/dry/pink. 15:45 Reassessment: Patient appears in no apparent distress at this time. Patient and/or eh3 family updated on plan of care and expected duration. Pain level reassessed. Patient is alert, oriented x 3, equal unlabored respirations, skin warm/dry/pink. 16:45 Reassessment: Patient appears in no apparent distress at this time. Patient and/or eh3 family updated on plan of care and expected duration. Pain level reassessed. Patient is alert, oriented x 3, equal unlabored respirations, skin warm/dry/pink. Vital Signs: 12:19 BP 151 / 87; Pulse 98; Resp 16; Temp 98.2; Pulse Ox 100% on R/A; Weight 72.12 kg; iw Height 5 ft. 1 in. (154.94 cm); 12:46 BP 143 / 77; Pulse 90; Resp 18; Pulse Ox 99% on R/A; eh3 13:45 BP 116 / 67; Pulse 90; Resp 18; Pulse Ox 99% on R/A; eh3 14:45 BP 115 / 71; Pulse 94; Resp 14; Pulse Ox 99% on R/A; eh3 15:45 BP 131 / 72; Pulse 96; Resp 20; Pulse Ox 99% on R/A; eh3 16:45 BP 118 / 73; Pulse 103; Resp 18; Pulse Ox 98% on R/A; eh3 12:19 Body Mass Index 30.04 (72.12 kg, 154.94 cm) iw ED Course: 12:13 Patient arrived in ED. rg4 12:21 Triage completed. iw 12:21 Arm band placed on. iw 12:33 Gregoria Martinez FNP-C is PSYCHIATRICP. snw 12:33 Stuart Taylor MD is Attending Physician. snw 12:36 Bobbi Fung, RN is Primary Nurse. eh3 12:58 Chest Single View XRAY In Process Unspecified. EDMS 14:15 Raji Pal MD is Hospitalizing Provider. snw 14:30 Patient has correct armband on for positive identification. Bed in low position. Call 3 light in reach. Side rails up X2. Pulse ox on. NIBP on. Door closed. Noise minimized. Warm blanket given. 16:39 Diet: Patient given snack. Tolerated well. eh3 17:32 No provider procedures requiring assistance completed. Patient admitted, IV remains in eh3 place. 19:09 Primary Nurse role handed off by Bobbi Fung, RN mw2 11/14 00:52 Karly Villavicencio, CIARRA is Primary Nurse. ha1 Administered Medications: 11/13 14:30 Drug: Insulin Regular Human 5 units {Co-Signature: [email or web address] (Magalys Falcon RN).} Route: eh3 IVP; Site: left antecubital; 16:05 Follow up: Response: Blood sugar is lowered [facility] 14:30 Drug: NS 0.9% 1000 ml Route: IV; Rate: 125 ml/hr; Site: left antecubital; 3 Medication: 17:32 VIS not applicable for this client. 3 Outcome: 14:16 Decision to Hospitalize by Provider. snw 17:32 Admitted to ER Hold. Please see [facility] for further documentation. 3 17:32 Condition: stable 17:32 Instructed on the need for admit. 11/14 08:37 Patient left the ED. ap3 Signatures: Dispatcher [employer] EDMS Gregoria Martinez, LEAD SECURITY OFFICER-C LEAD SECURITY OFFICER-Csnw Kaitlin Leo, RN Sandra Odom rg4 Jocelyn Whiting RN RN ap3 Toño Cronin 2 Bobbi Fung RN RN 3 Karly Villavicencio RN RN [facility] Magalys Falcon RN mb9
[2022-11-13] MEDS ORDERED: NA CHLORIDE 0.9% 1,000 ML ONE (14:22)
[2022-11-13] MEDS ORDERED: INSULIN -REGULAR HUMAN 50 UNIT/0.5 ML ML ONE (14:22)
[2022-11-13 14:49] LABS: SARS-CoV-2 Antigen Rapid Res Negative (Negative)
[2022-11-13] MEDS ORDERED: GLUCAGON 1 MG/VIAL IM PRN (16:27)
[2022-11-13] MEDS ORDERED: HYDROCODONE/APAP 5/325 MG TAB PO PRN (16:29)
[2022-11-13] MEDS ORDERED: ACETAMINOPHEN 325 MG TABLET PO PRN (16:29)
[2022-11-13] MEDS: INSULIN -REGULAR HUMAN 50 UNIT/0.5 ML ML SQ SCH ×2 (16:30→21:00)
[2022-11-13] MEDS ORDERED: ONDANSETRON 4 MG/2 ML VIAL IV PRN (16:34)
[2022-11-13] MEDS ORDERED: D10W 250 ML BAG IV PRN (16:41)
[2022-11-13] MEDS ORDERED: NA CHLORIDE 0.9% 1,000 ML IV SCH (17:00)
[2022-11-13 18:12] LABS: Thyroid Stimulating Hormone < 0.005 uIU/mL (0.358-3.740)
--- NOTE | 2022-11-13 18:22 | P.HP ---
Certification for Inpatient Patient admitted to: Observation With expected LOS: <2 Midnights Patient will require the following post-hospital care: None Practitioner: I am a practitioner with admitting privileges, knowledge of patient current condition, hospital course, and medical plan of care. Services: Services provided to patient in accordance with Admission requirements found in Title 42 Section 412.3 of the Code of Federal Regulations Patient History Date of Service: 11/13/22 Reason for admission: ZINA History of Present Illness: Patient is a 56-year-old female with a past medical history significant for DM 2, hypertension who presents with complaint of generalized weakness, dizziness and nausea. Patient reported that she was placed on new diabetic medication--Victoza. 3 days ago Patient reported that shortly after she developed symptoms that has become worse over time. Patient reports 2 episodes of diarrhea 2 days ago. Patient reported associated signs and symptoms of generalized body aches, fatigue, poor appetite and dry mouth. Patient reported that her blood sugar has become elevated after the initiation of the Diabetic medication. Patient denies any other signs and symptoms. Symptoms are aggravated or relieved by nothing. Patient decided to present to the hospital for medical evaluation. Allergies No Known Allergies Allergy (Unverified 11/13/22 17:07) Home Medications: Amlodipine [Norvasc*] 11/13/22 Insulin Detemir [Levemir Flextouch] 50 units 11/13/22 Liraglutide [Victoza 2-Arian] 11/13/22 Losartan/Hydrochlorothiazide [Losartan-Hctz 100-12.5 mg Tab] 11/13/22 - Past Medical/Surgical History -: HTN -: DM 2 Past Surgical History: Reviewed- Non-Contributory - Family History Family History: Reviewed- Non-Contributory - Social History Smoking Status: Never smoker Alcohol use: No CD- Drugs: No Caffeine use: Yes Place of Residence: Home Review of Systems General: Weakness, Other (Generalized body aches, fatigue, poor appetite, Dry mouth ) Eyes: Unremarkable ENT: Unremarkable Respiratory: Unremarkable Cardiovascular: Other (Dizziness ) Gastrointestinal: Nausea, Diarrhea Genitourinary: Unremarkable Musculoskeletal: Unremarkable Integumentary: Unremarkable Neurological: Other (Dizziness) Lymphatics: Unremarkable Physical Examination - Physical Exam General: Alert, In no apparent distress, Oriented x3 HEENT: Atraumatic, PERRLA, Mucous membr. moist/pink, EOMI, Sclerae nonicteric Neck: Supple, 2+ carotid pulse no bruit, No LAD, Without JVD or thyroid abnormality Respiratory: Clear to auscultation bilaterally, Normal air movement Cardiovascular: No edema, Regular rate/rhythm, Normal S1 S2 Capillary refill: <2 Seconds Gastrointestinal: Normal bowel sounds, Soft and benign, No tenderness Musculoskeletal: No clubbing, No tenderness Integumentary: No rashes, No significant lesion, No tenderness/swelling Neurological: Normal speech, Normal tone, Normal affect Lymphatics: No axilla or inguinal lymphadenopathy - Studies Laboratory Data (last 24 hrs) 11/13/22 13:00: PT 10.5, INR 0.95, APTT 31.8 11/13/22 13:00: Sodium 132 L, Potassium 4.6, BUN 70 H, Creatinine 2.29 H, Glucose 282 H, Total Bilirubin 0.2, AST 19, ALT 32, Alkaline Phosphatase 118 H 11/13/22 13:00: WBC 8.00, Hgb 10.1 L, Hct 28.7 L, Plt Count 260 Assessment and Plan - Plan --CKD 3A. Likely prerenal-- Secondary to dehydration. Patient placed on IV hydration. Nephrology consulted. We will hold off on EVELYN inhibitor and nephro toxins. Avoid NSAIDs. We will await further recommendations from dumbwaiter operator. --DM2 with hyperglycemia. Patient currently hypoglycemic with insulin therapy given in the ER. BS monitoring with sliding scale insulin. --Nausea. Antiemetics on board. Continue supportive care. --Hypertension. Poorly controlled. Continue home medication and labetalol as needed. --Anemia of chronic disease. H&H stable. We will continue to monitor hemoglobin and transfuse if less than 7.0. --Diarrhea. Resolved. Continue supportive care. --DVT prophylaxis with heparin subQ. Discharge Plan: Home Plan to discharge in: 48 Hours - Advance Directives Does patient have a Living Will: Yes Does patient have a Durable POA for Healthcare: No - Code Status/Comfort Care Code Status Assessed: Yes Physician Review: Patient Assessed, Agree with Above Assessment and Plan Critical Care: No
[2022-11-13] MEDS ORDERED: LABETALOL 20 MG/4ML SYRINGE IV PRN (18:31)
--- NOTE | 2022-11-13 18:36 | P.CNS ---
Date of Consult: 11/13/22 Reason for Consult: ZINA/ CKD Requesting Physician: Raji Pal Primary Care Provider: [facility] Chief Complaint: Dizziness/ Nausea/ Anorexia History of Present Illness: 56 yo HF DM, HTN, CKD presented to the ER with one week of moderate, persistent nausea with associated anorexia and dizziness. Her symptoms started after initiating Victoza. No NSAIDs. She reports intermittent pain and difficulty with urination. She has been told in the past that she has CKD. She reports feeling better in the ER with IVF and was able to tolerated a meal. 13:11 This 56 yrs old Female presents to ER via Ambulatory with complaints of snw Decreased Appetite, High Blood Sugar, Dizziness, Nausea. 13:11 PCP changed levemir and novolog to levemir and victoza last week. Pt states she has snw been feeling terrible since. nausea, anorexia, increased blood sugar. Onset: The symptoms/episode began/occurred acutely. Severity of symptoms: At their worst the symptoms were moderate. The patient has not experienced similar symptoms in the past. as noted. 12:19 Chief complaint: Patient states: went to see doctor Sunday , was started on new iw medicine (victoza) my sugars have been high and im nauseous and dizzy, called her doctor and was told to [facility], goes to [facility]. Allergies No Known Allergies Allergy (Unverified 11/13/22 17:07) Home medications list reviewed: Yes Home Medications: Amlodipine [Norvasc*] 11/13/22 Insulin Detemir [Levemir Flextouch] 50 units 11/13/22 Liraglutide [Victoza 2-Arian] 11/13/22 Losartan/Hydrochlorothiazide [Losartan-Hctz 100-12.5 mg Tab] 11/13/22 - Past Medical/Surgical History Diabetic: Yes -: HTN -: DM II -: CKD with Proteinuria (Dr. Rangel) - Social History Smoking Status: Current every day smoker Review of Systems 10-point ROS is otherwise unremarkable General: Weakness, Malaise Gastrointestinal: Nausea, Vomiting Physical Examination General: Oriented x3, Cooperative HEENT: Atraumatic Neck: Supple Respiratory: Clear to auscultation bilaterally Cardiovascular: No edema, Regular rate/rhythm Gastrointestinal: Soft and benign, Non-distended Musculoskeletal: No clubbing, No contractures Integumentary: No rashes, No cyanosis Neurological: Normal speech Laboratory Data (last 24 hrs) 11/13/22 13:00: PT 10.5, INR 0.95, APTT 31.8 11/13/22 13:00: Sodium 132 L, Potassium 4.6, BUN 70 H, Creatinine 2.29 H, Glucose 282 H, Total Bilirubin 0.2, AST 19, ALT 32, Alkaline Phosphatase 118 H 11/13/22 13:00: WBC 8.00, Hgb 10.1 L, Hct 28.7 L, Plt Count 260 Imagings Data: EXAM DESCRIPTION: RAD - Chest Single View - 11/13/2022 12:56 pm CLINICAL HISTORY: hyperglycemia, dizziness, shortness of breath COMPARISON: Portable 05/04/2021 TECHNIQUE: AP portable chest image was obtained 11/13/2022 12:56 pm . FINDINGS: No acute focal lung parenchymal process. Interstitial pattern matches comparison. No new hilar mass or lymphadenopathy. Heart and vasculature are normal. No measurable pleural effusion and no pneumothorax. No acute bony abnormality seen. No acute aortic findings suspected. IMPRESSION: No acute cardiopulmonary process. No significant change from comparison study. Conclusions/Impression: Stage I ZINA likely due to hypovolemia CKD III with proteinuria -No NSAIDs -Continue IVF with NS Hyponatremia -Continue IVF with NS HTN with CKD -Hold Losartan/ HCTZ at this time -Restart Amlodipine as indicated DM II with CKD -RISS -Restart Levemir as indicated Anemia in chronic illness -Monitor H&H Cigarette smoker -Recommend cessation Thank you kindly for the consultation
[2022-11-13] MEDS: NA CHLORIDE 0.9% 1,000 ML IV SCH (18:51)
[2022-11-13] MEDS: HEPARIN 5000 UNIT/ML 1 ML VIAL SQ SCH (21:00)
[2022-11-13] MEDS ORDERED: HEPARIN 5000 UNIT/ML 1 ML VIAL ONE (22:02)
[2022-11-14 02:54] LABS: Lymphocytes % 36.2 % (15.3-44.8); MCV 86.9 fL (80-100); MPV 10.1 fL (7.6-11.3); RBC Red Blood Cell Count 2.99 M/uL (3.86-4.86)
[2022-11-14 03:10] LABS: Phosphorus 3.5 mg/dL (2.5-4.9); Potassium 4.1 mmol/L (3.5-5.1); Uric Acid 6.2 mg/dL (2.6-6.0)
[2022-11-14] MEDS: NA CHLORIDE 0.9% 1,000 ML IV SCH (04:51)
[2022-11-14] MEDS ORDERED: NA CHLORIDE 0.9% 1,000 ML ONE (05:51)
[2022-11-14] MEDS ORDERED: INFLUENZA VACCINE (for 6+ mo) 0.5 ML DOSE IMVAC ONE (08:00)
[2022-11-14] MEDS ORDERED: ASPIRIN 81 MG CHEWABLE TABLET PO SCH (09:00)
[2022-11-14] MEDS ORDERED: AMLODIPINE 10 MG TAB PO SCH (09:00)
[2022-11-14 09:27] VITALS: BP 131/70; TEMP 97.7
[2022-11-14] MEDS: HEPARIN 5000 UNIT/ML 1 ML VIAL SQ SCH (09:28)
[2022-11-14] MEDS: INSULIN -REGULAR HUMAN 50 UNIT/0.5 ML ML SQ SCH (09:30)
[2022-11-14 09:56] VITALS: O2SAT 97
[2022-11-14] MEDS ORDERED: HOME MED 1 EA UNK (Insulin Detemir [Levemir Flextouch] 100 UNIT/ML Insuln.Pen) SQ SCH (10:18)
--- NOTE | 2022-11-14 10:28 | P.DS ---
Admission Date: 11/13/22 Discharge Date: 11/14/22 Primary Care Provider: [facility] Disposition: ROUTINE DISCHARGE Discharge Condition: FAIR Reason for Admission: Dizziness/ Nausea/ Anorexia - Problems (1) Acute renal failure Current Visit: Yes Status: Acute (2) Diabetes mellitus type 2 in nonobese Current Visit: Yes Status: Acute (3) Hyperthyroidism Current Visit: Yes Status: Acute Brief History of Present Illness: Patient is a 56-year-old female with a past medical history significant for DM 2, hypertension who presented with complaint of generalized weakness, dizziness and nausea. Patient reported that she was placed on new diabetic medication--Victoza. 3 days prior. Patient reported that shortly after taking the Victoza, she developed the above symptoms that became worse over time. Patient reported 2 episodes of diarrhea. Patient reported associated signs and symptoms of generalized body aches, fatigue, poor appetite and dry mouth. Patient reported that her blood sugar has become elevated after the initiation of the Diabetic medication. She was given insulin in the ED for hyperglycemia. Patient developed hypoglycemia afterwards. Blood work showed ZINA. Patient was hospitalized for further management. Hospital Course: Patient admitted to the medical floor and hydrated with IV fluid. She was seen in consultation by nephrology Dr. Rangel who assisted with management. Her renal function improved significantly with IV hydration. Patient is asymptomatic, tolerated her meal and ambulatory. She currently has no complaint. Serum creatinine has trended down to 1.6. Noted markedly low TSH level which could indicate hyperthyroidism. Patient has been informed she may have hypothyroidism and recommended repeat TSH as an outpatient. He is informed to follow with [facility] for repeat testing and further management. She will also follow-up with in the office regarding her renal function. Patient is clinically stable for discharge. Vital Signs/Physical Exam: Temp Pulse Resp BP Pulse Ox 97.7 F 86 16 131/70 95 11/14/22 08:00 11/14/22 09:28 11/14/22 08:00 11/14/22 09:28 11/14/22 08:00 General: Alert, In no apparent distress, Oriented x3 HEENT: Mucous membr. moist/pink Neck: JVD not distended Respiratory: Clear to auscultation bilaterally, Normal air movement Cardiovascular: No edema, Regular rate/rhythm, Normal S1 S2 Gastrointestinal: Normal bowel sounds, Soft and benign, Non-distended Musculoskeletal: No swelling Integumentary: No rashes, No cyanosis Neurological: Normal strength at 5/5 x4 extr Laboratory Data at Discharge: WBC 8.30 K/uL (4.3-10.9) 11/14/22 02:01 Hgb 8.9 g/dL (12.0-15.0) L D 11/14/22 02:01 Hct 26.0 % (36.0-45.0) L 11/14/22 02:01 Plt Count 222 K/uL (152-406) 11/14/22 02:01 PT 10.5 SECONDS (9.5-12.5) 11/13/22 13:00 INR 0.95 11/13/22 13:00 APTT 31.8 SECONDS (24.3-36.9) 11/13/22 13:00 Sodium 136 mmol/L (136-145) D 11/14/22 02:01 Potassium 4.1 mmol/L (3.5-5.1) 11/14/22 02:01 BUN 56 mg/dL (7-18) H 11/14/22 02:01 Creatinine 1.60 mg/dL (0.55-1.02) H 11/14/22 02:01 Glucose 220 mg/dL (74-106) H 11/14/22 02:01 Uric Acid 6.2 mg/dL (2.6-6.0) H 11/14/22 02:01 Phosphorus 3.5 mg/dL (2.5-4.9) 11/14/22 02:01 Magnesium 2.0 mg/dL (1.6-2.4) 11/14/22 02:01 Total Bilirubin 0.2 mg/dL (0.2-1.0) 11/13/22 13:00 AST 19 U/L (15-37) 11/13/22 13:00 ALT 32 U/L (13-56) 11/13/22 13:00 Alkaline Phosphatase 118 U/L (45-117) H 11/13/22 13:00 Home Medications: Insulin Detemir [Levemir Flextouch] 50 units 11/13/22 Losartan/Hydrochlorothiazide [Losartan-Hctz 100-12.5 mg Tab] 11/13/22 Amlodipine [Norvasc*] 10 mg PO DAILY #30 tab 11/14/22 Aspirin Chewable [Aspirin Chewable*] 81 mg PO DAILY #30 tab.chew 11/14/22 New Medications: Aspirin Chewable [Aspirin Chewable*] 81 mg PO DAILY #30 tab.chew Amlodipine [Norvasc*] 10 mg PO DAILY #30 tab Diet: ADA Activity: Ad russell Followup: NONE,NONE [Primary Care Provider] - Time spent managing pt's care (in minutes): 32
[2022-11-14] MEDS ORDERED: INSULIN GLARGINE 100 UNIT/ML SQ SCH (10:30)
--- NOTE | 2022-11-14 14:25 | EKG ---
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
== END 2022-11-14 11:15 | disposition home or self-care (01) | DRG 683 ==
LOC: ER 12:10 → INTOOBSV 16:26 → OBSVTOIN 16:26 → ERHOLD 16:26 → 4TH 11-14 07:53 → OBSVTOIN 11-14 10:32
PROVIDERS: ADMIT Hospitalist; ATTEND Internal Medicine
DX: N17.9 Acute kidney failure, unspecified (principal); E87.1 Hypo-osmolality and hyponatremia; E11.65 Type 2 diabetes mellitus with hyperglycemia; I12.9 Hypertensive chronic kidney disease with stage 1 through stage 4 chronic kidney disease, or unspecified chronic kidney disease; N18.31 Chronic kidney disease, stage 3a; E11.22 Type 2 diabetes mellitus with diabetic chronic kidney disease; E11.649 Type 2 diabetes mellitus with hypoglycemia without coma; D63.1 Anemia in chronic kidney disease; E86.0 Dehydration; E05.90 Thyrotoxicosis, unspecified without thyrotoxic crisis or storm; F17.200 Nicotine dependence, unspecified, uncomplicated; R19.7 Diarrhea, unspecified; Z79.4 Long term (current) use of insulin; Z79.82 Long term (current) use of aspirin; Z79.899 Other long term (current) drug therapy; Z28.310 Unvaccinated for COVID-19; Z20.822 Contact with and (suspected) exposure to COVID-19
CPT/HCPCS: 36415; 71045; 80048; 80053; 81003; 81015; 82947; 83036; 83605; 83735; 84100; 84439; 84443; 84550; 85025; 85610; 85730; 86038; 86160; 87040; 87077; 87086; 87088; 87186; 87811; 93005; 96374; 99285; G0378; J1644; J1815; J7030

== ENCOUNTER 2023-03-06 10:15 | Emergency (ER) | payer SELFPAY ==
--- OUTSIDE RECORDS SUMMARY | 2023-03-06 10:24 | XMS REPORT | Continuity of Care Document ---
:1965 Author Organization [facility] t Address [address] [facility] [address] [place] [address] Care Team Providers Name Role Phone Pcp, Patient Does Not Have A Primary Care Physician [id number] Doctor Unassigned, [place] Attending Clinician Unavailable HEATHRE HOUSTON Attending Clinician Unavailable Heather Houston MD Attending Clinician Felipa Monson LVN Attending Clinician GUZMAN SUTTON Attending Clinician Unavailable Nader LORENZO, Serenity Gates Attending Clinician Sandeep Shepherd MD Attending Clinician [...] pilonidal 2-30 ity of cyst cyst 00:00: [address] ZINA (acute ZINA (acute Disease Active 2020-11 U nivers kidney kidney 2-29 ity of injury) injury) 00:00: [address] Hypokalemi Hypokalemi Disease Active 2016-0 U nivers a a 7-13 ity of 00:00: [place] 00 Medical Branch Abscess Abscess Disease Active Univers 7-07 ity of 00:00: [place] 00 Medical Branch GERD GERD Disease Active Univers (gastroeso (gastroeso it y of phageal phageal [place] reflux reflux Medical disease) disease) Branch Blurred Blurred Disease Active Univers vision vision ity of [facility] 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 since 24 years old, on insulin for 5 years Allergies, Adverse Reactions, Alerts Allergy Allergy Status Severity Reaction(s) Onset Inactive Treating Comm ents Source Name Type Date Date Clinician NO KNOWN Drug Active Univers ALLERGIE Class ity of [facility] Social History Social Habit Start Date Stop Date Quantity Comments Source History SDOH University o f Alcohol Frequency [facility] edical Branch History SDOH University o f Alcohol Std [place] [facility] Branch History SDID University o f Alcohol Binge [facility] [place] [facility] Branch Exposure to Not sure [place] of SARS-CoV-2 [facility] (event) Branch Alcohol intake 2022-05-16 2022-05-16 0 /d University of 00:00:00 00:00:00 [facility] Cigarettes smoked 2016-05-29 2016-05-29 Univers ity of current (pack per 00:00:00 00:00:00 [facility] ) - Reported Branch Alcohol Comment 2016-05-29 2016-05-29 occasionally Univers ity of 00:00:00 00:00:00 [facility] Tobacco use and 2016-05-29 2016-05-29 Former smokeless Uni versity of exposure 00:00:00 00:00:00 tobacco user [facility] [place] [facility] History of 2016-05-11 User of smokeless Univers ity of tobacco use 00:00:00 tobacco [facility] Sex Ass[birth year] Universit y of 00:00:00 00:00:00 [facility] Smoking Status Start Date Stop Date Source Ex-smoker 2016-05-29 00:00:00 2016-05-29 00:00:00 Universi ty of [facility] Medications Ordered Filled Start Stop Current Ordering Indication Dosage Frequency Signature Comments Components Source Medication Medication Date Date Medication? Clinician (SIG) Name Name INJECT 2021-11 No UNITS TWICE 2-19 A DAY 00:00: 00 TAKE 1 2021-11 No 7unit TABLET 2-19 TWICE DAILY 00:00: WITH FOOD. 00 INJECT 50 2021-11 No UNITS UNDER 2-19 SKIN IN THE 00:00: MORNING AND 00 40 UNITS UNDER SKIN IN THE EVENING DAILY TAKE 1 2021-11 No TABLET 2-19 DAILY. 00:00: 00 TAKE 10 ML 2021-11 No 4-6 HOURS 2-19 NEEDED 00:00: 00 Dose 2021- No Unknown 2-19 00:00: 00 Dose 2021- No Unknown 2-19 00:00: 00 Dose 2021- No Unknown 2-19 00:00: 00 Dose 2021- No Unknown 2-19 00:00: 00 TAKE 1 2021-11 No 100 CAPSULE BY 2-19 MOUTH EVERY [...] 2021-0 No Unknown 8-16 00:00: 00 Dose 2-0 No Unknown 8-16 00:00: 00 amlodipine 2-0 No 1mg 10 mg 7-15 tablet 00:00: 00 amlodipine 2-0 No 1mg 10 mg 7-15 tablet 00:00: 00 Dose 2-0 No Unknown 7-15 00:00: 00 amlodipine 2022-0 No 1mg 10 mg 7-15 tablet 00:00: 00 losartan 2022-0 No 1mg 100 mg 5-18 tablet 00:00: 00 Dose 2-0 No Unknown 5-18 00:00: 00 losartan 2022-0 No 1mg 100 mg 5-18 tablet 00:00: 00 Dose 2-0 No Unknown 5-18 00:00: 00 losartan 2022-0 [...] 2-21 tablet,exte 00:00: nded 00 release Dose 2-0 No Unknown 2-21 00:00: 00 [...] No Unknown 2-21 00:00: 00 Zyrtec-D 5 2022-0 No 1mg mg-120 mg 2-21 tablet,exte 00:00: [...] 2022-0 No Unknown 2-19 00:00: 00 hydrochloro 2-0 No 1mg thiazide 2-19 12.5 mg 00:00: tablet 00 amlodipine 2-0 No 1mg 10 mg 2-19 tablet 00:00: 00 Dose 2-0 No Unknown 2-19 00:00: 00 Levemir 2022-0 No unit/mL U-100 1-28 Insulin 100 00:00: [...] 2022-0 No Unknown 1- 00:00: 00 losartan 2-0 No 1mg 100 mg 1-12 tablet 00:00: 00 Dose 2022-0 No Unknown 1-12 00:00: 00 losartan 2022-0 No 1mg 100 mg 1-12 tablet 00:00: 00 Dose 2022-0 No Unknown 1-12 00:00: 00 losartan 2022-0 No 1mg 100 mg 1-12 tablet 00:00: 00 Dose 2022-0 No Unknown 1-12 00:00: 00 losartan 2022-0 No 1mg 100 mg 1-12 tablet 00:00: 00 Dose 0 No Unknown - 00:00: 00 Dose 2021-0 No Unknown 11-14 00:00: 00 Dose 2021-0 No Unknown - 00:00: 00 Dose 2021-0 No Unknown 11-14 00:00: 00 ergocalcife 2021- No [id number] Take 1 Univers rol, 11-10108 capsule by ity of vitamin d2, 00:00: 05:59 [place] 1,250 mcg 00 :00 weekly for Medi yanni (50,000 6 doses. Branch unit) capsule esomeprazol Yes 40mg Take 40 mg Univers e 40 mg 03 by mouth ity of capsule 02:30: daily [place] 05 breakfast. Medical Branch insulin Yes inject Univers detemir 03 under the ity of U-100 02:30: skin. [place] (LEVEMIR 05 Medical U-100 Branch INSULIN) 100 unit/mL injection insulin Yes Inject as Unive rs regular, 03 directed. ity of human 02:30: [place] (NOVOLIN R 05 Medical INJECTION) Branch esomeprazol Yes 40mg Take 40 mg Univers e 40 mg 11-07 by mouth ity of capsule 02:30: daily [place] 05 breakfast. Medical Branch insulin Yes inject Univers detemir -03 under the ity of U-100 02:30: skin. [place] (LEVEMIR 05 Medical U-100 Branch INSULIN) 100 unit/mL injection insulin Yes Inject as Unive rs regular, 03 directed. ity of human 02:30: [place] (NOVOLIN R 05 Medical INJECTION) Branch ferrous 2021- No [id number] 325mg Take 1 Univers sulfate 325 [id number] tablet by ity of mg (65 mg 00:00: 05:59 mouth [place] iron) 00 :00 daily for Medical tablet 30 days. Branch magnesium 2021- No [id number] 400mg Take 1 Univers oxide 400 11-05 tablet by ity of mg (241.3 00:00: 05:59 mouth [place] mg 00 :00 daily for Medical magnesium) 15 days. Branc h tablet Dose 2020- No Unknown 2-27 00:00: 00 Dose 2020- No Unknown 2-27 00:00: 00 Dose 2020- No Unknown 2-27 00:00: 00 Dose 2020- No Unknown 2-27 00:00: 00 losartan 2020- No 1mg 100 mg 2-23 tablet 00:00: 00 Dose 2020- No Unknown 2-23 00:00: 00 losartan 2020- No 1mg 100 mg 2-23 tablet 00:00: 00 Dose 2020- No Unknown 2-23 00:00: 00 losartan 2020- No 1mg 100 mg 2-23 tablet 00:00: 00 Dose 2020- No Unknown 2-23 00:00: 00 losartan 2020- No 1mg 100 mg 2-23 tablet 00:00: 00 Dose 2020-11 No Unknown 2-23 00:00: 00 losartan 2020- No 1mg 100 mg 1-17 tablet 00:00: 00 losartan 2020- No 1mg 100 mg 1-17 tablet 00:00: 00 losartan 2020- No 1mg 100 mg 1-17 tablet 00:00: 00 losartan 2020- No 1mg 100 mg 1-17 tablet 00:00: 00 nitrofurant 2020-1 No 1mg oin 0-21 macrocrysta 00:00: l 100 mg 00 capsule nitrofurant 1 No 1mg oin 0-21 macrocrysta 00:00: l 100 mg 00 capsule nitrofurant 1 No 1mg oin 0-21 macrocrysta 00:00: l 100 mg 00 capsule nitrofurant 1 No 1mg oin 0-21 macrocrysta 00:00: l 100 mg 00 capsule methimazole 2020-0 No 1mg 5 mg tablet 07-07 00:00: 00 methimazole 2020-0 No 1mg 5 mg tablet 07-07 00:00: 00 methimazole 2020-0 No 1mg 5 mg tablet 07-07 00:00: 00 methimazole 2020-0 No 1mg 5 mg tablet 07-07 00:00: 00 Dose 2020-0 No Unknown 16 00:00: 00 Novolin R 2021-0 No 1unit/m Regular 7-16 L U-100 00:00: [...] No Unknown 7-16 00:00: 00 Novolin R 2021-0 No 1unit/m Regular 7-16 L U-100 00:00: Insulin 100 00 unit/mL injection solution hydrochloro 2020-0 No 1mg thiazide 7-16 12.5 mg 00:00: tablet 00 losartan 2020-0 No 1mg 100 mg 7-16 tablet 00:00: 00 ferrous 2021-0 No 1(65 mg sulfate 324 7-16 iron) mg (65 mg 00:00: iron) 00 tablet,gaby yed release Dose 2020-0 No Unknown 7-16 00:00: 00 losartan 2021-0 No 1mg 100 mg 7-12 tablet 00:00: 00 losartan 2021-0 No 1mg 100 mg 7-12 tablet 00:00: 00 losartan 2021-0 No 1mg 100 mg 7-12 tablet 00:00: 00 losartan 2021-0 No 1mg 100 mg 7-12 tablet 00:00: 00 methimazole 1-0 No 1mg 5 mg tablet 617 00:00: 00 methimazole 1-0 No 1mg 5 mg tablet 617 00:00: 00 methimazole 1-0 No 1mg 5 mg tablet 617 00:00: 00 methimazole 1-0 No 1mg 5 mg tablet 617 00:00: 00 Macrobid 1-0 No 1mg 100 mg 6-14 capsule 00:00: 00 Macrobid 2021-0 No 1mg 100 mg 6-14 capsule 00:00: 00 Macrobid 2021-0 No 1mg 100 mg 6-14 capsule 00:00: 00 Macrobid 1-0 No 1mg 100 mg 6-14 capsule 00:00: 00 hydrochloro 1-0 No 1mg thiazide 4-17 12.5 mg 00:00: tablet 00 hydrochloro 2021-0 No 1mg thiazide 4-17 12.5 mg 00:00: tablet 00 hydrochloro 2021-0 No 1mg thiazide 4-17 12.5 mg 00:00: tablet 00 hydrochloro 2021-0 No 1mg thiazide 4-17 12.5 mg 00:00: tablet 00 Levemir 1-0 No 30unit/ U-100 4-10 mL Insulin 100 00:00: unit/mL 00 subcutaneou s solution Novolin R 1-0 No 1unit/m Regular 4-10 L U-100 00:00: [...] mg 4-10 tablet 00:00: 00 losartan 50 2021-0 No 1mg mg tablet 3-24 00:00: 00 diclofenac 2021-0 No 1mg sodium 75 3-24 mg 00:00: tablet,gaby 00 yed release cyclobenzap 2021-0 No 12mg rine 5 mg 3-24 tablet 00:00: 00 losartan 50 2021-0 No 1mg mg tablet 3-24 00:00: 00 diclofenac 2021-0 No 1mg sodium 75 3-24 mg 00:00: tablet,gaby 00 yed release cyclobenzap 2021-0 No 12mg rine 5 mg 3-24 tablet 00:00: 00 losartan 50 2021-0 No 1mg mg tablet 3-24 00:00: 00 diclofenac 2021-0 No 1mg sodium 75 3-24 mg 00:00: tablet,gaby 00 yed release cyclobenzap 2021-0 No 12mg rine 5 mg 3-24 tablet 00:00: 00 losartan 50 2021-0 No 1mg mg tablet 3-24 00:00: 00 [...] Insulin 100 00 unit/mL injection solution Augmentin 2019- No 1mg 875 mg-125 2-27 mg tablet 00:00: 00 ProAir HFA 2018- No 12mcg/a 90 2-27 ctuatio mcg/actuati 00:00: n on aerosol 00 inhaler Novolin R 2018- No 1unit/m Regular 2-27 L U-100 00:00: Insulin 100 00 unit/mL injection solution Augmentin 2019-1 No 1mg 875 mg-125 2-27 mg tablet 00:00: 00 ProAir HFA 2019-1 No 12mcg/a 90 2-27 ctuatio mcg/actuati 00:00: n on aerosol 00 inhaler Novolin R 2019-1 No 1unit/m Regular 2-27 L U-100 00:00: Insulin 100 00 unit/mL injection solution Augmentin 2019-1 No 1mg 875 mg-125 2-27 mg tablet [...] unit/mL 00 subcutaneou s suspension Cipro 500 20190 No 1mg mg tablet 07-09 00:00: 00 Novolin 2019-0 No 20unit/ 70/30 U-100 9-04 mL Insulin 100 00:00: (70-30) unit/mL 00 subcutaneou s suspension Cipro 500 20190 No 1mg mg tablet 07-09 00:00: 00 Novolin 2019-0 No 20unit/ 70/30 U-100 9-04 mL Insulin 100 00:00: (70-30) unit/mL 00 subcutaneou s suspension Cipro 500 20190 No 1mg mg tablet 07-09 00:00: 00 [...] hours as needed for Pain (scale 4-6). ibuprofen 2018-0 Yes 600mg Take 1 Unive [...] suspension Novolin 2018-0 No unit/mL 70/30 U-100 109 (70-30) Insulin 100 00:00: unit/mL 00 subcutaneou s suspension Novolin 2018-0 No unit/mL 70/30 U-100 11-13 (70-30) Insulin 100 00:00: unit/mL 00 subcutaneou s suspension Novolin 2018-0 No unit/mL 70/30 U-100 11-13 (70-30) Insulin 100 00:00: unit/mL 00 subcutaneou s suspension Novolin 2018-0 No unit/mL 70/30 U-100 11-13 (70-30) Insulin 100 00:00: unit/mL 00 subcutaneou s suspension lovastatin 2017-1 No 1mg 20 mg 0-26 tablet 00:00: 00 lovastatin 2017-1 No 1mg 20 mg 0-26 tablet 00:00: 00 lovastatin 2017-1 No 1mg 20 mg 0-26 tablet 00:00: 00 lovastatin 2017-1 No 1mg 20 mg 0-26 tablet 00:00: 00 lisinopril 2017-1 No 1mg [...] 00:00: tablet 00 Novolin 2017-0 No 15unit/ 70/30 100 6-22 mL unit/mL 00:00: (70-30) subcutaneou 00 s suspension Novolin 2017-0 No 15unit/ 70/30 100 6-22 mL unit/mL 00:00: (7030) subcutaneou 00 s suspension Novolin 2017-0 No 15unit/ 70/30 100 6-22 mL unit/mL 00:00: (70-30) subcutaneou 00 s suspension Novolin 2017-0 No 15unit/ 70/30 100 6-22 mL unit/mL 00:00: (7030) subcutaneou 00 s suspension omeprazole 0 Yes 20mg Take 1 Unive rs (PRILOSEC) 7-17 capsule by ity of 20 mg 00:00: mouth [place] capsule 00 daily. Medical Branch omeprazole 0 Yes 20mg Take 1 Unive rs (PRILOSEC) 7-17 capsule by ity of 20 mg 00:00: mouth [place] capsule 00 daily. [facility] Vital Signs Vital Name Observation Time Observation Value Comments Source Systolic blood 2021-11-14 17:34:00 170 mm[Hg] Univer [facility]ity of [facility] Diastolic blood 2021-11-14 17:34:00 80 mm[facility]Hg] [facility] Heart rate 2021-11-14 17:34:00 80 /min [facility] Body temperature 2021-11-14 17:32:00 36.83 Sabiha [facility] 2021-11-14 17:32:00 20 /min [facility] Body height 2021-11-14 17:32:00 157.5 cm [facility] Body weight 2021-11-14 17:32:00 62.596 kg [facility] BMI 2021-11-14 17:32:00 25.24 kg/m2 [facility] Oxygen saturation in 2021-11-14 17:32:00 98 /min [facility] blood by [facility] Pulse oximetry Branch BP Systolic 2022-11-10 16:39:00 [...] Procedure Date / Time Performed Performing Clinician [facility] e REFERRAL- 2022-11-20 06:01:00 Doctor Unassigned, No [facility] REQUEST/RESPONSE Name Medical Branch 70247 Ecg Routine Ecg 2017-04-27 00:00:00 W/least 12 Lds W/i r Plan of Care Planned Activity Planned Date Details Comments Source Goal Plan of Care Note [code = 41037-2] Goal Plan of Care Note [code = 52790-5] Goal Plan of Care Note [code = 05446-2] Goal Plan of Care Note [code = 74967-5] Goal Plan of Care Note [code = 26870-6] Goal Plan of Care Note [code = 15602-9] Goal Plan of Care Note [code = 03980-9] Goal Plan of Care Note [code = 44392-1] Goal Plan of Care Note [code = 36531-1] Goal Plan of Care Note [code = 52686-0] Goal Plan of Care Note [code = 57113-2] Goal Plan of Care Note [code = 72887-9] Goal Plan of Care Note [code = 70229-0] Goal Plan of Care Note [code = 84243-1] Goal Plan of Care Note [code = 58265-2] Goal Plan of Care Note [code = 78758-2] Goal Plan of Care Note [code = 14335-0] Goal Plan of Care Note [code = 21203-0] Goal Plan of Care Note [code = 07665-0] Goal Plan of Care Note [code = 47028-0] Goal Plan of Care Note [code = 11595-4] Goal Plan of Care Note [code = 82957-0] Goal Plan of Care Note [code = 08490-3] Goal Plan of Care Note [code = 37518-2] Goal Plan of Care Note [code = 43773-0] Goal Plan of Care Note [code = 93209-0] Goal Plan of Care Note [code = 33835-5] Goal Plan of Care Note [code = 75130-6] Goal Plan of Care Note [code = 98526-4] Goal Plan of Care Note [code = 68033-1] Goal Plan of Care Note [code = 99661-7] Goal Plan of Care Note [code = 18357-5] Goal Plan of Care Note [code = 12333-5] Goal Plan of Care Note [code = 14691-7] Goal Plan of Care Note [code = 51001-1] Goal Plan of Care Note [code = 88206-0] Goal Plan of Care Note [code = 92255-4] Goal Plan of Care Note [code = 30145-4] Goal Plan of Care Note [code = 91770-4] Goal Plan of Care Note [code = 86485-3] Goal Plan of Care Note [code = 36693-0] Goal Plan of Care Note [code = 80608-3] Goal Plan of Care Note [code = 21290-3] Goal Plan of Care Note [code = 44322-8] Goal Plan of Care Note [code = 74477-2] Goal Plan of Care Note [code = 94064-9] Goal Plan of Care Note [code = 08032-9] Goal Plan of Care Note [code = 75798-8] Goal Plan of Care Note [code = 42160-1] Goal Plan of Care Note [code = 89285-8] Goal Plan of Care Note [code = 77583-7] Goal Plan of Care Note [code = 58074-0] Goal Plan of Care Note [code = 06153-3] Goal Plan of Care Note [code = 48391-9] Goal Plan of Care Note [code = 43334-5] Goal Plan of Care Note [code = 92473-9] Goal Plan of Care Note [code = 21765-1] Goal Plan of Care Note [code = 63434-0] Goal Plan of Care Note [code = 31472-1] Goal Plan of Care Note [code = 95775-2] Goal Plan of Care Note [code = 53021-8] Goal Plan of Care Note [code = 49958-6] Goal Plan of Care Note [code = 03767-8] Goal Plan of Care Note [code = 86922-0] Goal Plan of Care Note [code = 35189-4] Goal Plan of Care Note [code = 76660-7] Goal Plan of Care Note [code = 09009-9] Goal Plan of Care Note [code = 39686-9] Goal Plan of Care Note [code = 80035-3] Goal Plan of Care Note [code = 74772-4] Goal Plan of Care Note [code = 22298-7] Goal Plan of Care Note [code = 72364-5] Goal Plan of Care Note [code = 18280-6] Goal Plan of Care Note [code = 41752-2] Goal Plan of Care Note [code = 74837-2] Goal Plan of Care Note [code = 59805-9] Goal Plan of Care Note [code = 95528-1] Goal Plan of Care Note [code = 80405-3] Goal Plan of Care Note [code = 26491-7] Goal Plan of Care Note [code = 90647-5] Goal Plan of Care Note [code = 21720-7] Goal Plan of Care Note [code = 18504-8] Goal Plan of Care Note [code = 55317-4] Goal Plan of Care Note [code = 38992-3] Goal Plan of Care Note [code = 14205-8] Goal Plan of Care Note [code = 75843-3] Goal Plan of Care Note [code = 11657-2] Goal Plan of Care Note [code = 86056-2] Goal Plan of Care Note [code = 30389-4] Goal Plan of Care Note [code = 50423-8] Goal Plan of Care Note [code = 72102-9] Goal Plan of Care Note [code = 51302-5] Goal Plan of Care Note [code = 29276-3] Goal Plan of Care Note [code = 13766-5] Goal Plan of Care Note [code = 16014-9] Goal Plan of Care Note [code = 48192-7] Goal Plan of Care Note [code = 30535-5] Goal Plan of Care Note [code = 10448-3] Goal Plan of Care Note [code = 99827-2] Goal Plan of Care Note [code = 60511-4] Goal Plan of Care Note [code = 64388-5] Goal Plan of Care Note [code = 95466-0] Goal Plan of Care Note [code = 13762-6] Goal Plan of Care Note [code = 20359-0] Goal Plan of Care Note [code = 82303-9] Goal Plan of Care Note [code = 13762-9] Goal Plan of Care Note [code = 30952-3] Goal Plan of Care Note [code = 21716-2] Goal Plan of Care Note [code = 54964-3] Goal Plan of Care Note [code = 30362-2] Goal Plan of Care Note [code = 00705-4] Goal Plan of Care Note [code = 16643-9] Goal Plan of Care Note [code = 28035-2] Goal Plan of Care Note [code = 92679-4] Goal Plan of Care Note [code = 19966-1] Goal Plan of Care Note [code = 79593-3] Goal Plan of Care Note [code = 77625-5] Goal Plan of Care Note [code = 32639-7] Goal Plan of Care Note [code = 71976-9] Goal Plan of Care Note [code = 30354-3] Goal Plan of Care Note [code = 98684-2] Goal Plan of Care Note [code = 88344-4] Goal Plan of Care Note [code = 70452-8] Goal Plan of Care Note [code = 79663-3] Goal Plan of Care Note [code = 91993-6] Goal Plan of Care Note [code = 98589-1] Goal Plan of Care Note [code = 73147-1] Goal Plan of Care Note [code = 32142-5] Goal Plan of Care Note [code = 58757-7] Goal Plan of Care Note [code = 27381-3] Goal Plan of Care Note [code = 31194-1] Goal Plan of Care Note [code = 61079-7] Goal Plan of Care Note [code = 92660-2] Goal Plan of Care Note [code = 97684-1] Goal Plan of Care Note [code = 42785-8] Goal Plan of Care Note [code = 30243-3] Goal Plan of Care Note [code = 00211-8] Goal Plan of Care Note [code = 30193-3] Goal Plan of Care Note [code = 46482-8] Goal Plan of Care Note [code = 30023-5] Goal Plan of Care Note [code = 38786-0] Goal Plan of Care Note [code = 01042-8] Goal Plan of Care Note [code = 87540-4] Goal Plan of Care Note [code = 23407-9] Goal Plan of Care Note [code = 29842-1] Goal Plan of Care Note [code = 30823-7] Goal Plan of Care Note [code = 17545-6] Goal Plan of Care Note [code = 60900-0] Goal Plan of Care Note [code = 95857-5] Goal Plan of Care Note [code = 43060-7] Goal Plan of Care Note [code = 07374-9] Goal Plan of Care Note [code = 24989-3] Goal Plan of Care Note [code = 01141-3] Encounters Start End Encounter Admission Attending Care Care Encounter Source Date/Time Date/Time Type Type Clinicians Facility Department ID 2022-11-20 2022-11-20 Outpatient [facility] [id number] Maurice 15:43:47 15:43:47 0116 [facility] 2022-11-20 2022-11-20 Orders Doctor MAURER [id number] Univers 00:00:00 00:00:00 Only Unassigned, DENNYS 350.1.13.10 ity of [place] [facility] 4.2.7.2.686 [facility] as [phone] [address] 2022-11-10 2022-11-10 Outpatient [facility] SFA [id number] 023 Maurice 16:30:38 16:30:38 0106 [facility] 2022-11-10 2022-11-10 Outpatient [id number] 00:00:00 00:00:00 Visit bm5f-2363 p7t-4981-5 -810f-d4a 10f-d4abbd ydlh0dmhs a4bbbd 2022-09-14 2022-09-14 Outpatient [facility] [id number] Maurice 17:09:48 17:09:48 1110 F Elia 2022-09-14 2022-09-14 Outpatient [id number] 00:00:00 00:00:00 Visit 8943-492d 943-492d-9 -26d8-48v 4t8-61l2s7 [id number] 2022-08-18 2022-08-18 Outpatient [facility] [id number] 022 Maurice 14:24:12 14:24:12 1014 F Elia 2022-08-18 2022-08-18 Outpatient [id number] 00:00:00 00:00:00 Visit br1l-6zzi h8b-1iql-i -gl61-3x4 [id number] 9g48o42r5 6b91e7 2022-06-26 2022-06-26 Outpatient [id number] [id number] 00:00:00 00:00:00 Visit 7008-3339 065-4527-a -p6s8-775 [id number] [id number] [id number] 2021-12-15 2021-12-[address] [facility] [id number] Univers 11:15:00 11:15:00 [facility] 2021-11-14 2021-11-14 [facility] [id number] Univers 10:45:00 [facility]:25:[facility]-11-14 2021-11-14 [facility] [id number] Univers 10:45:00 11:25:15 Visit Heather CARMONA 350.1.13.10 [place] PROF[place] [phone] Co dical [facility] [address] [facility] 2021-11-14 2021-11-14 Outpatient R SYLVIE [facility] [id number] Univers 10:45:00 11:25:15 HEATHER young [facility] 2021-11-14 2021-11-14 Orders Doctor LIBERTAD [id number] Univers 00:00:00 00:00:00 Only Unassigned, DENNYS [id number] ity of [place] [facility] 4.2.7.2.686 Bill as [id number] [facility] 009 Branch 2021-11-07 2021-11-07 Transition CARLOS Monson [id number] Univers 00:00:00 00:00:00 of Care Felipa BALDWIN [id number] [place]2.[place] [id number] [facility] 403 Branch 2021-11-02 2021-11-05 Inpatient X KUNALJOSE J [facility] [id number] Univers 15:28:00 14:30:00 GUZMAN young [facility] 2021-11-02 2021-11-05 Hospital Serenity Doe [facility] 1.2.840. [id number] Univers 15:28:00 14:30:00 Encounter Sandeep Shepherd [id number] ity of [place] 4.2.7.2.686 [facility] [id number] [facility] 081 Branch 2019-07-01 2019-07-01 Emergency [facility] [id number] Univers 20:04:11 21:35:00 Wiliam Carmona [id number] ity of [place] [id number] [facility] 084 Branch 2019-07-01 2019-07-01 Emergency [facility] [id number] 20:04:11 21:35:00 Wiliam Carmona [id number] [place] 4.2.7.2.686 [place] [id number] 2013-10-29 2013-10-29 Emergency USMAN DEWEY [facility] [id number] [place] 15:36:00 23:10:00 [id number] [facility] Results Test Description Test Time Test Comments [...] FOR MOREINFORMATION , SEE CLIENT ANNOUNCEMENT AT [email or web address] RATIO LDL/HDL (test code = 2.30 RATIO <3.22 2237) COMPREHENSIVE METABOLIC [id number] 04:57:04 Test Item Value Reference Range Interpretation Comments GLUCOSE (test code = 184 MG/DL 70-99 H 2216) BUN (test code = 66 MG/DL 6-20 H 2207) CREATININE (test 1.87 MG/DL 0.60-1.30 H code = 2214) eGFR (2020 CKD-EPI) 31 >60 L (test code = 74140) ML/MIN/1.73 CALC BUN/CREAT (test 35 RATIO 6-28 H code = 2235) SODIUM (test code = 138 MEQ/L 110-435 0532) POTASSIUM (test code 5.0 MEQ/L 3.5-5.4 = 2228) CHLORIDE (test code 100 MEQ/L 95-107 = [...] MG/DL See_Comment [Automated message] (test code = 2207) The syste m which generated this result transmitted ref erence range: <=1.2. T he reference range was not used to int erpret this result as normal/abnormal . ALKALINE PHOSPHATASE 137 U/L 40-136 H (test code = 2203) AST (test code = 17 U/L 9-40 2217) ALT (test code = 21 U/L 5-40 UNLESS OTH ERWISE 2218) INDICATED, ALL TESTING PERFORM ED ATCLINICAL PATH [facility], [facility]. [address] [place] [id number] [place] [address] DIRECTOR: MARGI OCHOA M.D. CLIA NUMBER [id number] CAP ACCREDITATION N O. [id number] HEMOGLOBIN [id number] 03:03:22 Test Item Value Reference Range Interpretation Comments HEMOGLOBIN A1c (test 10.6 % 4.2-5.6 H AMERIC AN DIABETES code = 49171) ASSOCIATION IDELINES FOR HGB A1C: PREDIABETES/INC REASED [...] ATE TESTING OR LABORATORY C ONSULTATION. HEMOGLOBIN [id number] 05:15:03 Test Item Value Reference Range Interpretation Comments HEMOGLOBIN A1c (test 13.9 % 4.2-5.6 H AMERIC AN DIABETES code = 60979) ASSOCIATION IDELINES FOR HGB A1C: PREDIABETES/INC REASED [...] UNLESS OTHERWIS E INDICATED, ALL TESTING PER FORMED ATCLINICAL PATH [facility], [facility]. [address] [place] [address] LABORATORY DIRE CTOR: Sarita ISLAS. CLIA NUMBER [id number] CAP ACCREDITATION N O. [id number] HEMOGLOBIN [id number] 00:00:00 Test Item Value Reference Range Interpretation Comments HEMOGLOBIN A1c (test code = 98617) 13.9 % HEMOGLOBIN [id number] 00:00:00 Test Item Value Reference Range Interpretation Comments HEMOGLOBIN A1c (test code = 43677) 13.9 % HEMOGLOBIN [id number] 00:00:00 Test Item Value Reference Range Interpretation Comments HEMOGLOBIN A1c (test code = 79206) 13.9 % HEMOGLOBIN [id number] 00:00:00 Test Item Value Reference Range Interpretation Comments HEMOGLOBIN A1c (test code = 33906) 13.9 % HEMOGLOBIN [id number] 00:00:00 Test Item Value Reference Range Interpretation Comments HEMOGLOBIN A1c (test code = 56946) 13.9 % HEMOGLOBIN [id number] 00:00:00 Test Item Value Reference Range Interpretation Comments HEMOGLOBIN A1c (test code = 06545) 13.9 % COMPREHENSIVE METABOLIC [id number] 06:03:34 Test Item Value Reference Range Interpretation Comments GLUCOSE (test code = 72 MG/DL 70-99 2216) BUN (test code = 45 MG/DL 6-20 H 2207) CREATININE (test 1.24 MG/DL 0.60-1.30 code = 2214) eGFR (2020 CKD-EPI) 51 >60 L (test code = 90194) ML/MIN/1.73 CALC BUN/CREAT (test 36 RATIO 6-28 H code = 2235) SODIUM (test code = 140 MEQ/L 118-146 2413) POTASSIUM (test code 4.5 MEQ/L 3.5-5.4 = 2227) CHLORIDE (test code 104 MEQ/L 95-107 = 2215) CARBON DIOXIDE (test 24 MEQ/L 19-31 code = 2206) CALCIUM (test code = 10.2 MG/DL 8.5-10.5 220) PROTEIN, TOTAL (test 7.0 G/DL 6.1-8.3 code = 2229) ALBUMIN (test code = 4.2 G/DL 3.5-5.2 220) CALC GLOBULIN (test 2.8 G/DL 1.9-3.7 code = 2240) CALC A/G RATIO (test 1.5 RATIO 1.0-2.6 code = 2234) BILIRUBIN, TOTAL <0.2 MG/DL See_Comment [Automated message] (test code = 2207) The [employer] which generated this result transmitted ref erence range: <=1.2. T he reference range was not used to int erpret this result as normal/abnormal . ALKALINE PHOSPHATASE 134 U/L 40-136 (test code = 2204) AST (test code = 23 U/L 9-40 2217) ALT (test code = 19 U/L 5-40 UNLESS OTH ERWISE 2218) INDICATED, ALL TESTING PERFORM ED ATCLINICAL PATH [facility], [facility]. [address] [place] [id number] [place] [address] DIRECTOR: MARGI OCHOA M.D. IA NUMBER [id number] CAP ACCREDITATION N O. [id number] HEMOGLOBIN [id number] 05:25:13 Test Item Value Reference Range Interpretation Comments HEMOGLOBIN A1c (test 13.8 % 4.2-5.6 H AMERIC AN DIABETES code = 53695) ASSOCIATION IDELINES FOR HGB A1C: PREDIABETES/INC REASED [...] ATE TESTING OR LABORATORY C ONSULTATION. HEMOGLOBIN [id number] 00:00:00 Test Item Value Reference Range Interpretation Comments HEMOGLOBIN A1c (test code = 26714) 13.8 % HEMOGLOBIN [id number] 00:00:00 Test Item Value Reference Range Interpretation Comments HEMOGLOBIN A1c (test code = 36136) 13.8 % HEMOGLOBIN [id number] 00:00:00 Test Item Value Reference Range Interpretation Comments HEMOGLOBIN A1c (test code = 70160) 13.8 % COMPREHENSIVE METABOLIC [id number] 00:00:00 Test Item Value Reference Range Interpretation Comments GLUCOSE (test code = 2217) 72 MG/DL BUN (test code = 2208) 45 MG/DL CREATININE (test code = 2214) 1.24 MG/DL eGFR (2020 CKD-EPI) (test code 51 ML/MIN/1.73 = 38104) CALC BUN/CREAT (test code = 36 RATIO [...] A/G RATIO (test code = 1.5 RATIO 4) BILIRUBIN, TOTAL (test code = <0.2 MG/DL 2206) ALKALINE PHOSPHATASE (test 134 U/L code = 2204) AST (test code = 2218) 23 U/L ALT (test code = 2219) 19 U/L COMPREHENSIVE METABOLIC [id number] 00:00:00 Test Item Value Reference Range Interpretation Comments GLUCOSE (test code = 2217) 72 MG/DL BUN (test code = 2208) 45 MG/DL CREATININE (test code = 2214) 1.24 MG/DL eGFR (2020 CKD-EPI) (test code 51 ML/MIN/1.73 = 30060) CALC BUN/CREAT (test code = 36 RATIO [...] (test code = 2219) 19 U/L HEMOGLOBIN [id number] 00:00:00 Test Item Value Reference Range Interpretation Comments HEMOGLOBIN A1c (test code = 72976) 13.8 % HEMOGLOBIN [id number] 00:00:00 Test Item Value Reference Range Interpretation Comments HEMOGLOBIN A1c (test code = 99795) 13.8 % HEMOGLOBIN [id number] 00:00:00 Test Item Value Reference Range Interpretation Comments HEMOGLOBIN A1c (test code = 65449) 13.8 % COMPREHENSIVE METABOLIC [id number] 00:00:00 Test Item Value Reference Range Interpretation Comments GLUCOSE (test code = 2217) 72 MG/DL BUN (test code = 2208) 45 MG/DL CREATININE (test code = 2214) 1.24 MG/DL eGFR (2020 CKD-EPI) (test code 51 ML/MIN/1.73 = 45218) CALC BUN/CREAT (test code = 36 RATIO [...] code = 2219) 19 U/L COMPREHENSIVE METABOLIC [id number] 00:00:00 Test Item Value Reference Range Interpretation Comments GLUCOSE (test code = 2217) 72 MG/DL BUN (test code = 2208) 45 MG/DL CREATININE (test code = 2214) 1.24 MG/DL eGFR (2020 CKD-EPI) (test code 51 ML/MIN/1.73 = 39271) CALC BUN/CREAT (test code = 36 RATIO [...] (test code = 2219) 19 U/L HEMOGLOBIN [id number] 00:00:00 Test Item Value Reference Range Interpretation Comments HEMOGLOBIN A1c (test code = 32207) 13.8 % HEMOGLOBIN [id number] 00:00:00 Test Item Value Reference Range Interpretation Comments HEMOGLOBIN A1c (test code = 49266) 13.8 % HEMOGLOBIN [id number] 00:00:00 Test Item Value Reference Range Interpretation Comments HEMOGLOBIN A1c (test code = 95277) 13.8 % COMPREHENSIVE METABOLIC [id number] 00:00:00 Test Item Value Reference Range Interpretation Comments GLUCOSE (test code = 2217) 72 MG/DL BUN (test code = 2208) 45 MG/DL CREATININE (test code = 2214) 1.24 MG/DL eGFR (2020 CKD-EPI) (test code 51 ML/MIN/1.73 = 86532) CALC BUN/CREAT (test code = 36 RATIO [...] code = 2219) 19 U/L COMPREHENSIVE METABOLIC [id number] 00:00:00 Test Item Value Reference Range Interpretation Comments GLUCOSE (test code = 2217) 72 MG/DL BUN (test code = 2208) 45 MG/DL CREATININE (test code = 2214) 1.24 MG/DL eGFR (2020 CKD-EPI) (test code 51 ML/MIN/1.73 = 87082) CALC BUN/CREAT (test code = 36 RATIO [...] 19 U/L HIV 1/2 4TH GEN, RFLX [id number] 04:37:11 Test Item Value Reference Range Interpretation Comments HIV 1/2 4TH GEN, RFLX CONF (test NON-REACTIVE NON-REACTIVE code = 3514) HIV AB/AG COMBO RFLX [id number] 00:00:00 Test Item Value Reference Range Interpretation Comments HIV 1/2 4TH GEN, RFLX CONF (test NON-REACTIVE code = 3514) HIV AB/AG COMBO RFLX [id number] 00:00:00 Test Item Value Reference Range Interpretation Comments HIV 1/2 4TH GEN, RFLX CONF (test NON-REACTIVE code = 3514) HIV AB/AG COMBO RFLX [id number] 00:00:00 Test Item Value Reference Range Interpretation Comments HIV 1/2 4TH GEN, RFLX CONF (test NON-REACTIVE code = 3514) HIV AB/AG COMBO RFLX [id number] 00:00:00 Test Item Value Reference Range Interpretation Comments HIV 1/2 4TH GEN, RFLX CONF (test NON-REACTIVE code = 3514) HIV AB/AG COMBO RFLX [id number] 00:00:00 Test Item Value Reference Range Interpretation Comments HIV 1/2 4TH GEN, RFLX CONF (test NON-REACTIVE code = 3514) HIV AB/AG COMBO RFLX [id number] 00:00:00 Test Item Value Reference Range Interpretation Comments HIV 1/2 4TH GEN, RFLX CONF (test NON-REACTIVE code = 3514) HIV AB/AG COMBO RFLX [id number] 00:00:00 Test Item Value Reference Range Interpretation Comments HIV 1/2 4TH GEN, RFLX CONF (test NON-REACTIVE code = 3514) HIV AB/AG COMBO RFLX [id number] 00:00:00 Test Item Value Reference Range Interpretation Comments HIV 1/2 4TH GEN, RFLX CONF (test NON-REACTIVE code = 3514) ALBUMIN/CREATININE RATIO, URINE, [id number] 01:16:34 Test Item Value Reference Range Interpretation Comments CREATININE, URINE, 82.3 MG/DL NOT ESTAB RANDOM (test code = 2072) ALBUMIN, URINE, 10.4 MG/DL NOT ESTAB RANDOM (test code = 59194) CALC ALBUMIN/CREAT, 126 MG/G <30 H Note: RND (test code = Albumin/Cre atinine 91601) ratio reference interval reflec ts ADA and NKF guideli suzie. COMPREHENSIVE METABOLIC [id number] 00:35:57 Test Item Value Reference Range Interpretation Comments GLUCOSE (test code = 56 MG/DL 70-99 L 2216) BUN (test code = 39 MG/DL 6-20 H 2207) CREATININE (test 1.46 MG/DL 0.60-1.30 H code = 221) eGFR (2020 CKD-EPI) 42 ML/MIN/1.73 >60 L (test code = 65004) CALC BUN/CREAT (test 27 RATIO 6-28 code = 2235) SODIUM (test code = 141 MEQ/L 012-850 4631) POTASSIUM (test code 5.1 MEQ/L 3.5-5.4 = 2227) CHLORIDE (test code 103 MEQ/L 95-107 = 2214) CARBON DIOXIDE (test 22 MEQ/L 19-31 code = 220) CALCIUM (test code = 10.2 MG/DL 8.5-10.5 2208) PROTEIN, TOTAL (test 8.1 G/DL 6.1-8.3 code = 2228) ALBUMIN (test code = 4.7 G/DL 3.5-5.2 2200) CALC GLOBULIN (test 3.4 G/DL 1.9-3.7 code = 224) CALC A/G RATIO (test 1.4 RATIO 1.0-2.6 code = 223) BILIRUBIN, TOTAL <0.2 MG/DL See_Comment [Automated message] (test code = 2206) The syste m which generated this result transmit amanda reference range : <=1.2. The refe rence range was not u sed to interpret th is result as normal/abnormal . ALKALINE PHOSPHATASE 186 U/L 40-136 H (test code = 2203) AST (test code = 23 U/L 9-40 2217) ALT (test code = 24 U/L 5-40 2218) LIPID [id number] 00:35:57 Test Item Value Reference Range Interpretation Comments CHOLESTEROL (test 251 MG/DL <200 H code = 2210) TRIGLYCERIDES (test 79 MG/DL <150 code = 2232) HDL CHOLESTEROL (test 103 MG/DL >39 code = 222) CALC LDL CHOL (test 130 MG/DL <100 H NOTE: C ALCULATED LDL code = 2237) IS BASED ON WILLIAM-MARTINEZ METHOD WHICHINCLUDES ADJUSTABLE TRIGLYCERIDE:VL DL CHOLESTEROL RAT IO.THIS FACTOR VARIES B Y MEASURED TRIGLY CERIDE AND NON-HDLCHOL ESTEROL CONCENTRATIONS WITH INCREASED CALCU LATED LDL SEENIN HIGH ER TRIGLYCERIDE OR LOWER NON-HDL SPECIME NS. FOR MOREINFORMATION , SEE CLIENT ANNOUNCE MENT AT [email or web address] RISK RATIO LDL/HDL 1.26 RATIO <3.22 UNLESS O THERWISE (test code = 2238) INDICATED , ALL TESTING PERFORMED [facility], [facility]. [address] [place] [address] [facility] DIRECTOR: MARGI OCHOA M.D. IA NUMBER [id number] CAP ACCREDITATION N O. [id number] COMPREHENSIVE METABOLIC [id number] 00:00:00 Test Item Value Reference Range Interpretation Comments GLUCOSE (test code = 2217) 56 MG/DL BUN (test code = 2208) 39 MG/DL CREATININE (test code = 2214) 1.46 MG/DL eGFR (2020 CKD-EPI) (test code 42 ML/MIN/1.73 = 28967) CALC BUN/CREAT (test code = 27 RATIO [...] = 2219) 24 U/L MICROALBUMIN/CREATININE, RANDOM AND [id number] 00:00:00 Test Item Value Reference Range Interpretation Comments CREATININE, URINE, RANDOM (test 82.3 MG/DL code = 2072) ALBUMIN, URINE, RANDOM (test code 10.4 MG/DL = 39970) CALC ALBUMIN/CREAT, RND (test code 126 MG/G = 34731) MICROALBUMIN/CREATININE, RANDOM AND [id number] 00:00:00 Test Item Value Reference Range Interpretation Comments CREATININE, URINE, RANDOM (test 82.3 MG/DL code = 2071) ALBUMIN, URINE, RANDOM (test code 10.4 MG/DL = 08873) CALC ALBUMIN/CREAT, RND (test code 126 MG/G = 87833) LIPID [id number] 00:00:00 Test Item Value Reference Range Interpretation Comments CHOLESTEROL (test code = 2210) 251 MG/DL TRIGLYCERIDES (test code = 2232) 79 MG/DL HDL CHOLESTEROL (test code = 2220) 103 MG/DL CALC LDL CHOL (test code = 2237) 130 MG/DL RISK RATIO LDL/HDL (test code = 1.26 RATIO 2238) LIPID [id number] 00:00:00 Test Item Value Reference Range Interpretation Comments CHOLESTEROL (test code = 2210) 251 MG/DL TRIGLYCERIDES (test code = 2232) 79 MG/DL HDL CHOLESTEROL (test code = 2220) 103 MG/DL CALC LDL CHOL (test code = 2237) 130 MG/DL RISK RATIO LDL/HDL (test code = 1.26 RATIO 2238) COMPREHENSIVE METABOLIC [id number] 00:00:00 Test Item Value Reference Range Interpretation Comments GLUCOSE (test code = 2217) 56 MG/DL BUN (test code = 2208) 39 MG/DL CREATININE (test code = 2214) 1.46 MG/DL eGFR (2020 CKD-EPI) (test code 42 ML/MIN/1.73 = 74318) CALC BUN/CREAT (test code = 27 RATIO [...] code = 2219) 24 U/L COMPREHENSIVE METABOLIC [id number] 00:00:00 Test Item Value Reference Range Interpretation Comments GLUCOSE (test code = 2217) 56 MG/DL BUN (test code = 2208) 39 MG/DL CREATININE (test code = 2214) 1.46 MG/DL eGFR (2020 CKD-EPI) (test code 42 ML/MIN/1.73 = 74438) CALC BUN/CREAT (test code = 27 RATIO [...] = 2219) 24 U/L MICROALBUMIN/CREATININE, RANDOM AND [id number] 00:00:00 Test Item Value Reference Range Interpretation Comments CREATININE, URINE, RANDOM (test 82.3 MG/DL code = 2072) ALBUMIN, URINE, RANDOM (test code 10.4 MG/DL = 08019) CALC ALBUMIN/CREAT, RND (test code 126 MG/G = 98452) MICROALBUMIN/CREATININE, RANDOM AND [id number] 00:00:00 Test Item Value Reference Range Interpretation Comments CREATININE, URINE, RANDOM (test 82.3 MG/DL code = 2072) ALBUMIN, URINE, RANDOM (test code 10.4 MG/DL = 15007) CALC ALBUMIN/CREAT, RND (test code 126 MG/G = 86317) LIPID [id number] 00:00:00 Test Item Value Reference Range Interpretation Comments CHOLESTEROL (test code = 2210) 251 MG/DL TRIGLYCERIDES (test code = 2232) 79 MG/DL HDL CHOLESTEROL (test code = 2220) 103 MG/DL CALC LDL CHOL (test code = 2237) 130 MG/DL RISK RATIO LDL/HDL (test code = 1.26 RATIO 2238) LIPID [id number] 00:00:00 Test Item Value Reference Range Interpretation Comments CHOLESTEROL (test code = 2210) 251 MG/DL TRIGLYCERIDES (test code = 2232) 79 MG/DL HDL CHOLESTEROL (test code = 2220) 103 MG/DL CALC LDL CHOL (test code = 2237) 130 MG/DL RISK RATIO LDL/HDL (test code = 1.26 RATIO 2238) COMPREHENSIVE METABOLIC [id number] 00:00:00 Test Item Value Reference Range Interpretation Comments GLUCOSE (test code = 2217) 56 MG/DL BUN (test code = 2208) 39 MG/DL CREATININE (test code = 2214) 1.46 MG/DL eGFR (2020 CKD-EPI) (test code 42 ML/MIN/1.73 = 11527) CALC BUN/CREAT (test code = 27 RATIO [...] code = 2219) 24 U/L COMPREHENSIVE METABOLIC [id number] 00:00:00 Test Item Value Reference Range Interpretation Comments GLUCOSE (test code = 2217) 56 MG/DL BUN (test code = 2208) 39 MG/DL CREATININE (test code = 2214) 1.46 MG/DL eGFR (2020 CKD-EPI) (test code 42 ML/MIN/1.73 = 01195) CALC BUN/CREAT (test code = 27 RATIO [...] A/G RATIO (test code = 1.4 RATIO 223) BILIRUBIN, TOTAL (test code = <0.2 MG/DL 2206) ALKALINE PHOSPHATASE (test 186 U/L code = 220) AST (test code = 2218) 23 U/L ALT (test code = 2219) 24 U/L MICROALBUMIN/CREATININE, RANDOM AND [id number] 00:00:00 Test Item Value Reference Range Interpretation Comments CREATININE, URINE, RANDOM (test 82.3 MG/DL code = 2072) ALBUMIN, URINE, RANDOM (test code 10.4 MG/DL = 35330) CALC ALBUMIN/CREAT, RND (test code 126 MG/G = 75540) MICROALBUMIN/CREATININE, RANDOM AND [id number] 00:00:00 Test Item Value Reference Range Interpretation Comments CREATININE, URINE, RANDOM (test 82.3 MG/DL code = 2072) ALBUMIN, URINE, RANDOM (test code 10.4 MG/DL = 36950) CALC ALBUMIN/CREAT, RND (test code 126 MG/G = 43879) LIPID [id number] 00:00:00 Test Item Value Reference Range Interpretation Comments CHOLESTEROL (test code = 2210) 251 MG/DL TRIGLYCERIDES (test code = 2232) 79 MG/DL HDL CHOLESTEROL (test code = 2220) 103 MG/DL CALC LDL CHOL (test code = 2237) 130 MG/DL RISK RATIO LDL/HDL (test code = 1.26 RATIO 2238) LIPID [id number] 00:00:00 Test Item Value Reference Range Interpretation Comments CHOLESTEROL (test code = 2210) 251 MG/DL TRIGLYCERIDES (test code = 2232) 79 MG/DL HDL CHOLESTEROL (test code = 2220) 103 MG/DL CALC LDL CHOL (test code = 2237) 130 MG/DL RISK RATIO LDL/HDL (test code = 1.26 RATIO 2238) COMPREHENSIVE METABOLIC [id number] 00:00:00 Test Item Value Reference Range Interpretation Comments GLUCOSE (test code = 2217) 56 MG/DL BUN (test code = 2208) 39 MG/DL CREATININE (test code = 2214) 1.46 MG/DL eGFR (2020 CKD-EPI) (test code 42 ML/MIN/1.73 = 87106) CALC BUN/CREAT (test code = 27 RATIO [...] code = 2219) 24 U/L COMPREHENSIVE METABOLIC [id number] 00:00:00 Test Item Value Reference Range Interpretation Comments GLUCOSE (test code = 2217) 56 MG/DL BUN (test code = 2208) 39 MG/DL CREATININE (test code = 2214) 1.46 MG/DL eGFR (2020 CKD-EPI) (test code 42 ML/MIN/1.73 = 02892) CALC BUN/CREAT (test code = 27 RATIO 2235) SODIUM (test code = 2231) 141 MEQ/L POTASSIUM (test code = 2228) 5.1 MEQ/L CHLORIDE (test code = 2215) 103 MEQ/L CARBON DIOXIDE (test code = 22 MEQ/L 220) CALCIUM (test code = 2209) 10.2 MG/DL PROTEIN, TOTAL (test code = 8.1 G/DL 222) ALBUMIN (test code = 2201) 4.7 G/DL CALC GLOBULIN (test code = 3.4 G/DL 2240) CALC A/G RATIO (test code = 1.4 RATIO 2234) BILIRUBIN, TOTAL (test code = <0.2 MG/DL 2206) ALKALINE PHOSPHATASE (test 186 U/L code = 2204) AST (test code = 2218) 23 U/L ALT (test code = 2219) 24 U/L MICROALBUMIN/CREATININE, RANDOM AND [id number] 00:00:00 Test Item Value Reference Range Interpretation Comments CREATININE, URINE, RANDOM (test 82.3 MG/DL code = 2072) ALBUMIN, URINE, RANDOM (test code 10.4 MG/DL = 36959) CALC ALBUMIN/CREAT, RND (test code 126 MG/G = 76372) MICROALBUMIN/CREATININE, RANDOM AND [id number] 00:00:00 Test Item Value Reference Range Interpretation Comments CREATININE, URINE, RANDOM (test 82.3 MG/DL code = 2072) ALBUMIN, URINE, RANDOM (test code 10.4 MG/DL = 51200) CALC ALBUMIN/CREAT, RND (test code 126 MG/G = 93182) LIPID [id number] 00:00:00 Test Item Value Reference Range Interpretation Comments CHOLESTEROL (test code = 2210) 251 MG/DL TRIGLYCERIDES (test code = 2232) 79 MG/DL HDL CHOLESTEROL (test code = 2220) 103 MG/DL CALC LDL CHOL (test code = 2237) 130 MG/DL RISK RATIO LDL/HDL (test code = 1.26 RATIO 2238) LIPID [id number] 00:00:00 Test Item Value Reference Range Interpretation Comments CHOLESTEROL (test code = 2210) 251 MG/DL TRIGLYCERIDES (test code = 2232) 79 MG/DL HDL CHOLESTEROL (test code = 2220) 103 MG/DL CALC LDL CHOL (test code = 2237) 130 MG/DL RISK RATIO LDL/HDL (test code = 1.26 RATIO 2238) COMPREHENSIVE METABOLIC [id number] 00:00:00 Test Item Value Reference Range Interpretation Comments GLUCOSE (test code = 2217) 56 MG/DL BUN (test code = 2208) 39 MG/DL CREATININE (test code = 2214) 1.46 MG/DL eGFR (2020 CKD-EPI) (test code 42 ML/MIN/1.73 = 42693) CALC BUN/CREAT (test code = 27 RATIO 2234) SODIUM (test code = 2231) 141 MEQ/L [...] ALKALINE PHOSPHATASE (test 186 U/L code = 2203) AST (test code = 2218) 23 U/L ALT (test code = 2219) 24 U/L HEMOGLOBIN [id number] 03:34:07 Test Item Value Reference Range Interpretation Comments HEMOGLOBIN A1c (test 10.0 % 4.2-5.6 H [employer]IC AN DIABETES code = 63038) ASSOCIATION IDELIN[employer] FOR HGB A1C: PREDIABETES/INC REASED [...] LABORATORY C ONSULTATION. CBC W/AUTO DIFF WITH [id number] 02:45:06 Test Item Value Reference Range Interpretation [...] RBCS 0.00 K/UL 0.00-0.11 (test code = 29128) CBC W/AUTO [id number] 00:00:00 Test Item Value Reference Range Interpretation [...] NUCLEATED RBCS (test code = 0.00 K/UL 78154) CBC W/AUTO [id number] 00:00:00 Test Item Value Reference Range Interpretation [...] NUCLEATED RBCS (test code = 0.00 K/UL 45221) CBC W/AUTO [id number] 00:00:00 Test Item Value Reference Range Interpretation [...] NUCLEATED RBCS (test code = 0.00 K/UL 98864) HEMOGLOBIN [id number] 00:00:00 Test Item Value Reference Range Interpretation Comments HEMOGLOBIN A1c (test code = 93279) 10.0 % HEMOGLOBIN [id number] 00:00:00 Test Item Value Reference Range Interpretation Comments HEMOGLOBIN A1c (test code = 98904) 10.0 % HEMOGLOBIN [id number] 00:00:00 Test Item Value Reference Range Interpretation Comments HEMOGLOBIN A1c (test code = 79551) 10.0 % CBC W/AUTO [id number] 00:00:00 Test Item Value Reference Range Interpretation [...] NUCLEATED RBCS (test code = 0.00 K/UL 30831) CBC W/AUTO [id number] 00:00:00 Test Item Value Reference Range Interpretation [...] NUCLEATED RBCS (test code = 0.00 K/UL 12565) CBC W/AUTO [id number] 00:00:00 Test Item Value Reference Range Interpretation [...] NUCLEATED RBCS (test code = 0.00 K/UL 76324) HEMOGLOBIN [id number] 00:00:00 Test Item Value Reference Range Interpretation Comments HEMOGLOBIN A1c (test code = 16453) 10.0 % HEMOGLOBIN [id number] 00:00:00 Test Item Value Reference Range Interpretation Comments HEMOGLOBIN A1c (test code = 04032) 10.0 % HEMOGLOBIN [id number] 00:00:00 Test Item Value Reference Range Interpretation Comments HEMOGLOBIN A1c (test code = 43478) 10.0 % CBC W/AUTO [id number] 00:00:00 Test Item Value Reference Range Interpretation [...] NUCLEATED RBCS (test code = 0.00 K/UL 34995) CBC W/AUTO [id number] 00:00:00 Test Item Value Reference Range Interpretation [...] NUCLEATED RBCS (test code = 0.00 K/UL 34808) CBC W/AUTO [id number] 00:00:00 Test Item Value Reference Range Interpretation [...] NUCLEATED RBCS (test code = 0.00 K/UL 12359) HEMOGLOBIN [id number] 00:00:00 Test Item Value Reference Range Interpretation Comments HEMOGLOBIN A1c (test code = 57514) 10.0 % HEMOGLOBIN [id number] 00:00:00 Test Item Value Reference Range Interpretation Comments HEMOGLOBIN A1c (test code = 28469) 10.0 % HEMOGLOBIN [id number] 00:00:00 Test Item Value Reference Range Interpretation Comments HEMOGLOBIN A1c (test code = 75255) 10.0 % CBC W/AUTO [id number] 00:00:00 Test Item Value Reference Range Interpretation [...] NUCLEATED RBCS (test code = 0.00 K/UL 03922) CBC W/AUTO [id number] 00:00:00 Test Item Value Reference Range Interpretation [...] NUCLEATED RBCS (test code = 0.00 K/UL 90092) CBC W/AUTO [id number] 00:00:00 Test Item Value Reference Range Interpretation [...] NUCLEATED RBCS (test code = 0.00 K/UL 69247) HEMOGLOBIN [id number] 00:00:00 Test Item Value Reference Range Interpretation Comments HEMOGLOBIN A1c (test code = 87577) 10.0 % HEMOGLOBIN [id number] 00:00:00 Test Item Value Reference Range Interpretation Comments HEMOGLOBIN A1c (test code = 25854) 10.0 % HEMOGLOBIN [id number] 00:00:00 Test Item Value Reference Range Interpretation Comments HEMOGLOBIN A1c (test code = 10151) 10.0 % COMPREHENSIVE METABOLIC [id number] 00:00:00 Test Item Value Reference Range Interpretation Comments GLUCOSE (test code = 2217) 792 MG/DL BUN (test code = 2208) 59 MG/DL CREATININE (test code = 2214) 1.33 MG/DL eGFR AMER. (test code 52 ML/MIN/1.73 = 56230) eGFR NON- AMER. (test 45 ML/MIN/1.73 code = 45254) CALC BUN/CREAT (test code = 44 RATIO [...] BILIRUBIN, TOTAL (test code = <0.2 MG/DL 220) ALKALINE PHOSPHATASE (test 123 U/L code = 2204) AST (test code = 2218) 21 U/L ALT (test code = 2219) 36 U/L COMPREHENSIVE METABOLIC [id number] 00:00:00 Test Item Value Reference Range Interpretation Comments GLUCOSE (test code = 2217) 792 MG/DL BUN (test code = 2208) 59 MG/DL CREATININE (test code = 2214) 1.33 MG/DL eGFR AMER. (test code 52 ML/MIN/1.73 = 55080) eGFR NON- AMER. (test 45 ML/MIN/1.73 code = 24495) CALC BUN/CREAT (test code = 44 RATIO [...] code = 2219) 36 U/L COMPREHENSIVE METABOLIC [id number] 00:00:00 Test Item Value Reference Range Interpretation Comments GLUCOSE (test code = 2217) 792 MG/DL BUN (test code = 2208) 59 MG/DL CREATININE (test code = 2214) 1.33 MG/DL eGFR AMER. (test code 52 ML/MIN/1.73 = 77133) eGFR NON- AMER. (test 45 ML/MIN/1.73 code = 78888) CALC BUN/CREAT (test code = 44 RATIO [...] code = 2219) 36 U/L COMPREHENSIVE METABOLIC [id number] 00:00:00 Test Item Value Reference Range Interpretation Comments GLUCOSE (test code = 2217) 792 MG/DL BUN (test code = 2207) 59 MG/DL CREATININE (test code = 2214) 1.33 MG/DL eGFR AMER. (test code 52 ML/MIN/1.73 = 34909) eGFR NON- AMER. (test 45 ML/MIN/1.73 code = 41581) CALC BUN/CREAT (test code = 44 RATIO [...] code = 2219) 36 U/L COMPREHENSIVE METABOLIC [id number] 00:00:00 Test Item Value Reference Range Interpretation Comments GLUCOSE (test code = 2217) 792 MG/DL BUN (test code = 2208) 59 MG/DL CREATININE (test code = 2214) 1.33 MG/DL eGFR AMER. (test code 52 ML/MIN/1.73 = 40511) eGFR NON- AMER. (test 45 ML/MIN/1.73 code = 38160) CALC BUN/CREAT (test code = 44 RATIO [...] code = 2219) 36 U/L COMPREHENSIVE METABOLIC [id number] 00:00:00 Test Item Value Reference Range Interpretation Comments GLUCOSE (test code = 2217) 792 MG/DL BUN (test code = 2208) 59 MG/DL CREATININE (test code = 2214) 1.33 MG/DL eGFR AMER. (test code 52 ML/MIN/1.73 = 58921) eGFR NON- AMER. (test 45 ML/MIN/1.73 code = 60385) CALC BUN/CREAT (test code = 44 RATIO [...] code = 2219) 36 U/L COMPREHENSIVE METABOLIC [id number] 00:00:00 Test Item Value Reference Range Interpretation Comments GLUCOSE (test code = 2217) 792 MG/DL BUN (test code = 2208) 59 MG/DL CREATININE (test code = 2214) 1.33 MG/DL eGFR AMER. (test code 52 ML/MIN/1.73 = 55718) eGFR NON- AMER. (test 45 ML/MIN/1.73 code = 80217) CALC BUN/CREAT (test code = 44 RATIO [...] code = 2219) 36 U/L COMPREHENSIVE METABOLIC [id number] 00:00:00 Test Item Value Reference Range Interpretation Comments GLUCOSE (test code = 2217) 792 MG/DL BUN (test code = 2208) 59 MG/DL CREATININE (test code = 2214) 1.33 MG/DL eGFR AMER. (test code 52 ML/MIN/1.73 = 80911) eGFR NON- AMER. (test 45 ML/MIN/1.73 code = 41604) CALC BUN/CREAT (test code = 44 RATIO [...] CALC GLOBULIN (test code = 3.1 G/DL 0) CALC A/G RATIO (test code = 1.3 RATIO 2233) BILIRUBIN, TOTAL (test code = <0.2 MG/DL 2206) ALKALINE PHOSPHATASE (test 123 U/L code = 2204) AST (test code = 2218) 21 U/L ALT (test code = 221) 36 U/L FREE T4 (THYROXINE) [ADDED][id number] 00:00:00 [...] NOTE: (test code = 998) (NOTE) MICROALBUMIN, [id number] 00:00:00 Test Item Value Reference Range Interpretation Comments ALBUMIN, URINE, RANDOM (test code = 6.4 MG/DL 32523) MICROALBUMIN, [id number] 00:00:00 Test Item Value Reference Range Interpretation Comments ALBUMIN, URINE, RANDOM (test code = 6.4 MG/DL 76737) MICROALBUMIN, [id number] 00:00:00 Test Item Value Reference Range Interpretation Comments ALBUMIN, URINE, RANDOM (test code = 6.4 MG/DL 74860) MICROALBUMIN, [id number] 00:00:00 Test Item Value Reference Range Interpretation Comments ALBUMIN, URINE, RANDOM (test code = 6.4 MG/DL 23229) MICROALBUMIN, [id number] 00:00:00 Test Item Value Reference Range Interpretation Comments ALBUMIN, URINE, RANDOM (test code = 6.4 MG/DL 07778) MICROALBUMIN, [id number] 00:00:00 Test Item Value Reference Range Interpretation Comments ALBUMIN, URINE, RANDOM (test code = 6.4 MG/DL 22611) MICROALBUMIN, [id number] 00:00:00 Test Item Value Reference Range Interpretation Comments ALBUMIN, URINE, RANDOM (test code = 6.4 MG/DL 06548) MICROALBUMIN, [id number] 00:00:00 Test Item Value Reference Range Interpretation Comments ALBUMIN, URINE, RANDOM (test code = 6.4 MG/DL 31727) COMPREHENSIVE METABOLIC [id number] 00:00:00 Test Item Value Reference Range Interpretation Comments GLUCOSE (test code = 2217) 207 MG/DL BUN (test code = 2208) 45 MG/DL CREATININE (test code = 2214) 1.06 MG/DL eGFR AMER. (test code 68 ML/MIN/1.73 = 97228) eGFR NON- AMER. (test 59 ML/MIN/1.73 code = 82470) CALC BUN/CREAT (test code = 42 RATIO [...] code = 2219) 35 U/L COMPREHENSIVE METABOLIC [id number] 00:00:00 Test Item Value Reference Range Interpretation Comments GLUCOSE (test code = 2217) 207 MG/DL BUN (test code = 2208) 45 MG/DL CREATININE (test code = 2214) 1.06 MG/DL eGFR AMER. (test code 68 ML/MIN/1.73 = 10175) eGFR NON- AMER. (test 59 ML/MIN/1.73 code = 56393) CALC BUN/CREAT (test code = 42 RATIO [...] (test code = 2219) 35 U/L LIPID [id number] 00:00:00 Test Item Value Reference Range Interpretation Comments CHOLESTEROL (test code = 2210) 194 MG/DL TRIGLYCERIDES (test code = 2232) 80 MG/DL HDL CHOLESTEROL (test code = 2220) 75 MG/DL CALC LDL CHOL (test code = 2237) 102 MG/DL RISK RATIO LDL/HDL (test code = 1.36 RATIO 2238) LIPID [id number] 00:00:00 Test Item Value Reference Range Interpretation Comments CHOLESTEROL (test code = 2210) 194 MG/DL TRIGLYCERIDES (test code = 2232) 80 MG/DL HDL CHOLESTEROL (test code = 2220) 75 MG/DL CALC LDL CHOL (test code = 2237) 102 MG/DL RISK RATIO LDL/HDL (test code = 1.36 RATIO 2238) COMPREHENSIVE METABOLIC [id number] 00:00:00 Test Item Value Reference Range Interpretation Comments GLUCOSE (test code = 2217) 207 MG/DL BUN (test code = 2208) 45 MG/DL CREATININE (test code = 2214) 1.06 MG/DL eGFR AMER. (test code 68 ML/MIN/1.73 = 37567) eGFR NON- AMER. (test 59 ML/MIN/1.73 code = 90706) CALC BUN/CREAT (test code = 42 RATIO [...] code = 2219) 35 U/L COMPREHENSIVE METABOLIC [id number] 00:00:00 Test Item Value Reference Range Interpretation Comments GLUCOSE (test code = 2217) 207 MG/DL BUN (test code = 2208) 45 MG/DL CREATININE (test code = 2214) 1.06 MG/DL eGFR AMER. (test code 68 ML/MIN/1.73 = 48355) eGFR NON- AMER. (test 59 ML/MIN/1.73 code = 23296) CALC BUN/CREAT (test code = 42 RATIO [...] (test code = 2219) 35 U/L LIPID [id number] 00:00:00 Test Item Value Reference Range Interpretation Comments CHOLESTEROL (test code = 2210) 194 MG/DL TRIGLYCERIDES (test code = 2232) 80 MG/DL HDL CHOLESTEROL (test code = 2220) 75 MG/DL CALC LDL CHOL (test code = 2237) 102 MG/DL RISK RATIO LDL/HDL (test code = 1.36 RATIO 2238) LIPID [id number] 00:00:00 Test Item Value Reference Range Interpretation Comments CHOLESTEROL (test code = 2210) 194 MG/DL TRIGLYCERIDES (test code = 2232) 80 MG/DL HDL CHOLESTEROL (test code = 2220) 75 MG/DL CALC LDL CHOL (test code = 2237) 102 MG/DL RISK RATIO LDL/HDL (test code = 1.36 RATIO 2238) COMPREHENSIVE METABOLIC [id number] 00:00:00 Test Item Value Reference Range Interpretation Comments GLUCOSE (test code = 2217) 207 MG/DL BUN (test code = 2208) 45 MG/DL CREATININE (test code = 2214) 1.06 MG/DL eGFR AMER. (test code 68 ML/MIN/1.73 = 29382) eGFR NON- AMER. (test 59 ML/MIN/1.73 code = 70108) CALC BUN/CREAT (test code = 42 RATIO [...] code = 2219) 35 U/L COMPREHENSIVE METABOLIC [id number] 00:00:00 Test Item Value Reference Range Interpretation Comments GLUCOSE (test code = 2217) 207 MG/DL BUN (test code = 2208) 45 MG/DL CREATININE (test code = 2214) 1.06 MG/DL eGFR AMER. (test code 68 ML/MIN/1.73 = 43889) eGFR NON- AMER. (test 59 ML/MIN/1.73 code = 89285) CALC BUN/CREAT (test code = 42 RATIO [...] (test code = 2219) 35 U/L LIPID [id number] 00:00:00 Test Item Value Reference Range Interpretation Comments CHOLESTEROL (test code = 2210) 194 MG/DL TRIGLYCERIDES (test code = 2232) 80 MG/DL HDL CHOLESTEROL (test code = 2220) 75 MG/DL CALC LDL CHOL (test code = 2237) 102 MG/DL RISK RATIO LDL/HDL (test code = 1.36 RATIO 2238) LIPID [id number] 00:00:00 Test Item Value Reference Range Interpretation Comments CHOLESTEROL (test code = 2210) 194 MG/DL TRIGLYCERIDES (test code = 2232) 80 MG/DL HDL CHOLESTEROL (test code = 2220) 75 MG/DL CALC LDL CHOL (test code = 2237) 102 MG/DL RISK RATIO LDL/HDL (test code = 1.36 RATIO 2238) COMPREHENSIVE METABOLIC [id number] 00:00:00 Test Item Value Reference Range Interpretation Comments GLUCOSE (test code = 2217) 207 MG/DL BUN (test code = 2208) 45 MG/DL CREATININE (test code = 2214) 1.06 MG/DL eGFR AMER. (test code 68 ML/MIN/1.73 = 73897) eGFR NON- AMER. (test 59 ML/MIN/1.73 code = 40344) CALC BUN/CREAT (test code = 42 RATIO [...] code = 2219) 35 U/L COMPREHENSIVE METABOLIC [id number] 00:00:00 Test Item Value Reference Range Interpretation Comments GLUCOSE (test code = 2217) 207 MG/DL BUN (test code = 2208) 45 MG/DL CREATININE (test code = 2214) 1.06 MG/DL eGFR AMER. (test code 68 ML/MIN/1.73 = 13560) eGFR NON- AMER. (test 59 ML/MIN/1.73 code = 12630) CALC BUN/CREAT (test code = 42 RATIO [...] (test code = 2219) 35 U/L LIPID [id number] 00:00:00 Test Item Value Reference Range Interpretation Comments CHOLESTEROL (test code = 2210) 194 MG/DL TRIGLYCERIDES (test code = 2232) 80 MG/DL HDL CHOLESTEROL (test code = 2220) 75 MG/DL CALC LDL CHOL (test code = 2237) 102 MG/DL RISK RATIO LDL/HDL (test code = 1.36 RATIO 2238) LIPID [id number] 00:00:00 Test Item Value Reference Range Interpretation Comments CHOLESTEROL (test code = 2210) 194 MG/DL TRIGLYCERIDES (test code = 2232) 80 MG/DL HDL CHOLESTEROL (test code = 2220) 75 MG/DL CALC LDL CHOL (test code = 2237) 102 MG/DL RISK RATIO LDL/HDL (test code = 1.36 RATIO 2238) HEMOGLOBIN [id number] 00:00:00 Test Item Value Reference Range Interpretation Comments HEMOGLOBIN A1c (test code = 82914) 15.4 % CBC W/AUTO [id number] 00:00:00 Test Item Value Reference Range Interpretation [...] code = 1015) 314 K/UL CBC W/AUTO [id number] 00:00:00 Test Item Value Reference Range Interpretation [...] code = 1015) 314 K/UL CBC W/AUTO [id number] 00:00:00 Test Item Value Reference Range Interpretation [...] (test code = 1015) 314 K/UL HEMOGLOBIN [id number] 00:00:00 Test Item Value Reference Range Interpretation Comments HEMOGLOBIN A1c (test code = 45486) 15.4 % HEMOGLOBIN [id number] 00:00:00 Test Item Value Reference Range Interpretation Comments HEMOGLOBIN A1c (test code = 08387) 15.4 % HEMOGLOBIN [id number] 00:00:00 Test Item Value Reference Range Interpretation Comments HEMOGLOBIN A1c (test code = 24065) 15.4 % CBC W/AUTO [id number] 00:00:00 Test Item Value Reference Range Interpretation [...] code = 1015) 314 K/UL CBC W/AUTO [id number] 00:00:00 Test Item Value Reference Range Interpretation [...] code = 1015) 314 K/UL CBC W/AUTO [id number] 00:00:00 Test Item Value Reference Range Interpretation [...] (test code = 1015) 314 K/UL HEMOGLOBIN [id number] 00:00:00 Test Item Value Reference Range Interpretation Comments HEMOGLOBIN A1c (test code = 84436) 15.4 % HEMOGLOBIN [id number] 00:00:00 Test Item Value Reference Range Interpretation Comments HEMOGLOBIN A1c (test code = 02359) 15.4 % HEMOGLOBIN [id number] 00:00:00 Test Item Value Reference Range Interpretation Comments HEMOGLOBIN A1c (test code = 65655) 15.4 % CBC W/AUTO [id number] 00:00:00 Test Item Value Reference Range Interpretation [...] code = 1015) 314 K/UL CBC W/AUTO [id number] 00:00:00 Test Item Value Reference Range Interpretation [...] code = 1015) 314 K/UL CBC W/AUTO [id number] 00:00:00 Test Item Value Reference Range Interpretation [...] (test code = 1015) 314 K/UL HEMOGLOBIN [id number] 00:00:00 Test Item Value Reference Range Interpretation Comments HEMOGLOBIN A1c (test code = 41176) 15.4 % HEMOGLOBIN [id number] 00:00:00 Test Item Value Reference Range Interpretation Comments HEMOGLOBIN A1c (test code = 41635) 15.4 % HEMOGLOBIN [id number] 00:00:00 Test Item Value Reference Range Interpretation Comments HEMOGLOBIN A1c (test code = 63702) 15.4 % CBC W/AUTO [id number] 00:00:00 Test Item Value Reference Range Interpretation [...] code = 1015) 314 K/UL CBC W/AUTO [id number] 00:00:00 Test Item Value Reference Range Interpretation [...] code = 1015) 314 K/UL CBC W/AUTO [id number] 00:00:00 Test Item Value Reference Range Interpretation [...] (test code = 1015) 314 K/UL HEMOGLOBIN [id number] 00:00:00 Test Item Value Reference Range Interpretation Comments HEMOGLOBIN A1c (test code = 41490) 15.4 % HEMOGLOBIN [id number] 00:00:00 Test Item Value Reference Range Interpretation Comments HEMOGLOBIN A1c (test code = 00513) 15.4 % SARS-CoV-2 (COVID-19) by RT-PCR (HIGH RISK)2020-12-01 00:00:00 Test Item Value Reference Range Interpretation Comments SARS-CoV-2 INTERPRETATION (test NEGATIVE code = 67343) SOURCE (test code = 07363) NOT SPECIFIED SARS-CoV-2 (COVID-19) by RT-PCR (HIGH RISK)2020-12-01 00:00:00 Test Item Value Reference Range Interpretation Comments SARS-CoV-2 INTERPRETATION (test NEGATIVE code = 06097) SOURCE (test code = 17406) NOT SPECIFIED SARS-CoV-2 (COVID-19) by RT-PCR (HIGH RISK)2020-12-01 00:00:00 Test Item Value Reference Range Interpretation Comments SARS-CoV-2 INTERPRETATION (test NEGATIVE code = 50844) SOURCE (test code = 41035) NOT SPECIFIED SARS-CoV-2 (COVID-19) by RT-PCR (HIGH RISK)2020-12-01 00:00:00 Test Item Value Reference Range Interpretation Comments SARS-CoV-2 INTERPRETATION (test NEGATIVE code = 77882) SOURCE (test code = 93913) NOT SPECIFIED SARS-CoV-2 (COVID-19) by RT-PCR (HIGH RISK)2020-12-01 00:00:00 Test Item Value Reference Range Interpretation Comments SARS-CoV-2 INTERPRETATION (test NEGATIVE code = 46554) SOURCE (test code = 03432) NOT SPECIFIED SARS-CoV-2 (COVID-19) by RT-PCR (HIGH RISK)2020-12-01 00:00:00 Test Item Value Reference Range Interpretation Comments SARS-CoV-2 INTERPRETATION (test NEGATIVE code = 82323) SOURCE (test code = 69602) NOT SPECIFIED SARS-CoV-2 (COVID-19) by RT-PCR (HIGH RISK)2020-12-01 00:00:00 Test Item Value Reference Range Interpretation Comments SARS-CoV-2 INTERPRETATION (test NEGATIVE code = 36089) SOURCE (test code = 94349) NOT SPECIFIED SARS-CoV-2 (COVID-19) by RT-PCR (HIGH RISK)2020-12-01 00:00:00 Test Item Value Reference Range Interpretation Comments SARS-CoV-2 INTERPRETATION (test NEGATIVE code = 10315) SOURCE (test code = 73574) NOT SPECIFIED LIPID [id number] 00:00:00 Test Item Value Reference Range Interpretation Comments CHOLESTEROL (test code = 2210) 187 MG/DL TRIGLYCERIDES (test code = 2232) 105 MG/DL HDL CHOLESTEROL (test code = 2220) 69 MG/DL CALC LDL CHOL (test code = 2237) 98 MG/DL RISK RATIO LDL/HDL (test code = 1.42 RATIO 2238) LIPID [id number] 00:00:00 Test Item Value Reference Range Interpretation Comments CHOLESTEROL (test code = 2210) 187 MG/DL TRIGLYCERIDES (test code = 2232) 105 MG/DL HDL CHOLESTEROL (test code = 2220) 69 MG/DL CALC LDL CHOL (test code = 2237) 98 MG/DL RISK RATIO LDL/HDL (test code = 1.42 RATIO 2238) COMPREHENSIVE METABOLIC [id number] 00:00:00 Test Item Value Reference Range Interpretation Comments GLUCOSE (test code = 2217) 195 MG/DL BUN (test code = 2208) 25 MG/DL CREATININE (test code = 2214) 1.02 MG/DL eGFR AMER. (test code 72 ML/MIN/1.73 = 52744) eGFR NON- AMER. (test 62 ML/MIN/1.73 code = 59620) CALC BUN/CREAT (test code = 25 RATIO [...] code = 2219) 46 U/L COMPREHENSIVE METABOLIC [id number] 00:00:00 Test Item Value Reference Range Interpretation Comments GLUCOSE (test code = 2217) 195 MG/DL BUN (test code = 2208) 25 MG/DL CREATININE (test code = 2214) 1.02 MG/DL eGFR AMER. (test code 72 ML/MIN/1.73 = 82412) eGFR NON- AMER. (test 62 ML/MIN/1.73 code = 00106) CALC BUN/CREAT (test code = 25 RATIO [...] (test code = 2219) 46 U/L LIPID [id number] 00:00:00 Test Item Value Reference Range Interpretation Comments CHOLESTEROL (test code = 2210) 187 MG/DL TRIGLYCERIDES (test code = 2232) 105 MG/DL HDL CHOLESTEROL (test code = 2220) 69 MG/DL CALC LDL CHOL (test code = 2237) 98 MG/DL RISK RATIO LDL/HDL (test code = 1.42 RATIO 2238) LIPID [id number] 00:00:00 Test Item Value Reference Range Interpretation Comments CHOLESTEROL (test code = 2210) 187 MG/DL TRIGLYCERIDES (test code = 2232) 105 MG/DL HDL CHOLESTEROL (test code = 2220) 69 MG/DL CALC LDL CHOL (test code = 2237) 98 MG/DL RISK RATIO LDL/HDL (test code = 1.42 RATIO 2238) COMPREHENSIVE METABOLIC [id number] 00:00:00 Test Item Value Reference Range Interpretation Comments GLUCOSE (test code = 2217) 195 MG/DL BUN (test code = 2208) 25 MG/DL CREATININE (test code = 2214) 1.02 MG/DL eGFR AMER. (test code 72 ML/MIN/1.73 = 74518) eGFR NON- AMER. (test 62 ML/MIN/1.73 code = 26436) CALC BUN/CREAT (test code = 25 RATIO [...] code = 2219) 46 U/L COMPREHENSIVE METABOLIC [id number] 00:00:00 Test Item Value Reference Range Interpretation Comments GLUCOSE (test code = 2217) 195 MG/DL BUN (test code = 2208) 25 MG/DL CREATININE (test code = 2214) 1.02 MG/DL eGFR AMER. (test code 72 ML/MIN/1.73 = 71979) eGFR NON- AMER. (test 62 ML/MIN/1.73 code = 36832) CALC BUN/CREAT (test code = 25 RATIO [...] (test code = 2219) 46 U/L LIPID [id number] 00:00:00 Test Item Value Reference Range Interpretation Comments CHOLESTEROL (test code = 2210) 187 MG/DL TRIGLYCERIDES (test code = 2232) 105 MG/DL HDL CHOLESTEROL (test code = 2220) 69 MG/DL CALC LDL CHOL (test code = 2237) 98 MG/DL RISK RATIO LDL/HDL (test code = 1.42 RATIO 2238) LIPID [id number] 00:00:00 Test Item Value Reference Range Interpretation Comments CHOLESTEROL (test code = 2210) 187 MG/DL TRIGLYCERIDES (test code = 2232) 105 MG/DL HDL CHOLESTEROL (test code = 2220) 69 MG/DL CALC LDL CHOL (test code = 2237) 98 MG/DL RISK RATIO LDL/HDL (test code = 1.42 RATIO 2238) COMPREHENSIVE METABOLIC [id number] 00:00:00 Test Item Value Reference Range Interpretation Comments GLUCOSE (test code = 2217) 195 MG/DL BUN (test code = 2208) 25 MG/DL CREATININE (test code = 2214) 1.02 MG/DL eGFR AMER. (test code 72 ML/MIN/1.73 = 58803) eGFR NON- AMER. (test 62 ML/MIN/1.73 code = 35139) CALC BUN/CREAT (test code = 25 RATIO [...] code = 2219) 46 U/L COMPREHENSIVE METABOLIC [id number] 00:00:00 Test Item Value Reference Range Interpretation Comments GLUCOSE (test code = 2217) 195 MG/DL BUN (test code = 2208) 25 MG/DL CREATININE (test code = 2214) 1.02 MG/DL eGFR AMER. (test code 72 ML/MIN/1.73 = 61817) eGFR NON- AMER. (test 62 ML/MIN/1.73 code = 49958) CALC BUN/CREAT (test code = 25 RATIO [...] (test code = 2219) 46 U/L LIPID [id number] 00:00:00 Test Item Value Reference Range Interpretation Comments CHOLESTEROL (test code = 2210) 187 MG/DL TRIGLYCERIDES (test code = 2232) 105 MG/DL HDL CHOLESTEROL (test code = 2220) 69 MG/DL CALC LDL CHOL (test code = 2237) 98 MG/DL RISK RATIO LDL/HDL (test code = 1.42 RATIO 2238) LIPID [id number] 00:00:00 Test Item Value Reference Range Interpretation Comments CHOLESTEROL (test code = 2210) 187 MG/DL TRIGLYCERIDES (test code = 2232) 105 MG/DL HDL CHOLESTEROL (test code = 2220) 69 MG/DL CALC LDL CHOL (test code = 2237) 98 MG/DL RISK RATIO LDL/HDL (test code = 1.42 RATIO 2238) COMPREHENSIVE METABOLIC [id number] 00:00:00 Test Item Value Reference Range Interpretation Comments GLUCOSE (test code = 2217) 195 MG/DL BUN (test code = 2208) 25 MG/DL CREATININE (test code = 2214) 1.02 MG/DL eGFR AMER. (test code 72 ML/MIN/1.73 = 14978) eGFR NON- AMER. (test 62 ML/MIN/1.73 code = 77821) CALC BUN/CREAT (test code = 25 RATIO [...] code = 2219) 46 U/L COMPREHENSIVE METABOLIC [id number] 00:00:00 Test Item Value Reference Range Interpretation Comments GLUCOSE (test code = 2217) 195 MG/DL BUN (test code = 2208) 25 MG/DL CREATININE (test code = 2214) 1.02 MG/DL eGFR AMER. (test code 72 ML/MIN/1.73 = 80865) eGFR NON- AMER. (test 62 ML/MIN/1.73 code = 98837) CALC BUN/CREAT (test code = 25 RATIO [...] (test code = 2219) 46 U/L HEMOGLOBIN [id number] 00:00:00 Test Item Value Reference Range Interpretation Comments HEMOGLOBIN A1c (test code = 38501) 14.3 % HEMOGLOBIN [id number] 00:00:00 Test Item Value Reference Range Interpretation Comments HEMOGLOBIN A1c (test code = 03200) 14.3 % HEMOGLOBIN [id number] 00:00:00 Test Item Value Reference Range Interpretation Comments HEMOGLOBIN A1c (test code = 56705) 14.3 % HEMOGLOBIN [id number] 00:00:00 Test Item Value Reference Range Interpretation Comments HEMOGLOBIN A1c (test code = 77654) 14.3 % HEMOGLOBIN [id number] 00:00:00 Test Item Value Reference Range Interpretation Comments HEMOGLOBIN A1c (test code = 06464) 14.3 % HEMOGLOBIN [id number] 00:00:00 Test Item Value Reference Range Interpretation Comments HEMOGLOBIN A1c (test code = 79389) 14.3 % HEMOGLOBIN [id number] 00:00:00 Test Item Value Reference Range Interpretation Comments HEMOGLOBIN A1c (test code = 85996) 14.3 % HEMOGLOBIN [id number] 00:00:00 Test Item Value Reference Range Interpretation Comments HEMOGLOBIN A1c (test code = 82118) 14.3 % HEMOGLOBIN [id number] 00:00:00 Test Item Value Reference Range Interpretation Comments HEMOGLOBIN A1c (test code = 94590) 14.3 % HEMOGLOBIN [id number] 00:00:00 Test Item Value Reference Range Interpretation Comments HEMOGLOBIN A1c (test code = 43146) 14.3 % HEMOGLOBIN [id number] 00:00:00 Test Item Value Reference Range Interpretation Comments HEMOGLOBIN A1c (test code = 91286) 14.3 % HEMOGLOBIN [id number] 00:00:00 Test Item Value Reference Range Interpretation Comments HEMOGLOBIN A1c (test code = 90979) 14.3 % HEMOGLOBIN [id number] 00:00:00 Test Item Value Reference Range Interpretation Comments HEMOGLOBIN A1c (test code = 31585) 10.7 % HEMOGLOBIN [id number] 00:00:00 Test Item Value Reference Range Interpretation Comments HEMOGLOBIN A1c (test code = 17689) 10.7 % HEMOGLOBIN [id number] 00:00:00 Test Item Value Reference Range Interpretation Comments HEMOGLOBIN A1c (test code = 04098) 10.7 % HEMOGLOBIN [id number] 00:00:00 Test Item Value Reference Range Interpretation Comments HEMOGLOBIN A1c (test code = 17431) 10.7 % HEMOGLOBIN [id number] 00:00:00 Test Item Value Reference Range Interpretation Comments HEMOGLOBIN A1c (test code = 49126) 10.7 % HEMOGLOBIN [id number] 00:00:00 Test Item Value Reference Range Interpretation Comments HEMOGLOBIN A1c (test code = 85363) 10.7 % HEMOGLOBIN [id number] 00:00:00 Test Item Value Reference Range Interpretation Comments HEMOGLOBIN A1c (test code = 06133) 10.7 % HEMOGLOBIN [id number] 00:00:00 Test Item Value Reference Range Interpretation Comments HEMOGLOBIN A1c (test code = 56571) 10.7 % HEMOGLOBIN [id number] 00:00:00 Test Item Value Reference Range Interpretation Comments HEMOGLOBIN A1c (test code = 15372) 10.7 % HEMOGLOBIN [id number] 00:00:00 Test Item Value Reference Range Interpretation Comments HEMOGLOBIN A1c (test code = 15000) 10.7 % HEMOGLOBIN [id number] 00:00:00 Test Item Value Reference Range Interpretation Comments HEMOGLOBIN A1c (test code = 41671) 10.7 % HEMOGLOBIN [id number] 00:00:00 Test Item Value Reference Range Interpretation Comments HEMOGLOBIN A1c (test code = 24577) 10.7 % COMPREHENSIVE METABOLIC [id number] 00:00:00 Test Item Value Reference Range Interpretation Comments GLUCOSE (test code = 2217) 398 MG/DL BUN (test code = 2208) 39 MG/DL CREATININE (test code = 2214) 0.88 MG/DL eGFR AMER. (test code 88 ML/MIN/1.73 = 67701) eGFR NON- AMER. (test 76 ML/MIN/1.73 code = 57369) CALC BUN/CREAT (test code = 44 RATIO 2234) SODIUM (test code = 2231) 136 MEQ/L [...] code = 2219) 13 U/L COMPREHENSIVE METABOLIC [id number] 00:00:00 Test Item Value Reference Range Interpretation Comments GLUCOSE (test code = 2217) 398 MG/DL BUN (test code = 2208) 39 MG/DL CREATININE (test code = 2214) 0.88 MG/DL eGFR AMER. (test code 88 ML/MIN/1.73 = 09571) eGFR NON- AMER. (test 76 ML/MIN/1.73 code = 40793) CALC BUN/CREAT (test code = 44 RATIO [...] CALC GLOBULIN (test code = 2.7 G/DL 224) CALC A/G RATIO (test code = 1.7 RATIO 2234) BILIRUBIN, TOTAL (test code = 0.1 MG/DL 2206) ALKALINE PHOSPHATASE (test 102 U/L code = 2204) AST (test code = 2218) 16 U/L ALT (test code = 2219) 13 U/L LIPID [id number] 00:00:00 Test Item Value Reference Range Interpretation Comments CHOLESTEROL (test code = 2210) 255 MG/DL TRIGLYCERIDES (test code = 2232) 144 MG/DL HDL CHOLESTEROL (test code = 2220) 62 MG/DL CALC LDL CHOL (test code = 2237) 164 MG/DL RISK RATIO LDL/HDL (test code = 2.65 RATIO 2238) LIPID [id number] 00:00:00 Test Item Value Reference Range Interpretation Comments CHOLESTEROL (test code = 2210) 255 MG/DL TRIGLYCERIDES (test code = 2232) 144 MG/DL HDL CHOLESTEROL (test code = 2220) 62 MG/DL CALC LDL CHOL (test code = 2237) 164 MG/DL RISK RATIO LDL/HDL (test code = 2.65 RATIO 2238) HEMOGLOBIN [id number] 00:00:00 Test Item Value Reference Range Interpretation Comments HEMOGLOBIN A1c (test code = 57113) 12.9 % HEMOGLOBIN [id number] 00:00:00 Test Item Value Reference Range Interpretation Comments HEMOGLOBIN A1c (test code = 32357) 12.9 % HEMOGLOBIN [id number] 00:00:00 Test Item Value Reference Range Interpretation Comments HEMOGLOBIN A1c (test code = 55751) 12.9 % COMPREHENSIVE METABOLIC [id number] 00:00:00 Test Item Value Reference Range Interpretation Comments GLUCOSE (test code = 2217) 398 MG/DL BUN (test code = 2208) 39 MG/DL CREATININE (test code = 2214) 0.88 MG/DL eGFR AMER. (test code 88 ML/MIN/1.73 = 21253) eGFR NON- AMER. (test 76 ML/MIN/1.73 code = 17438) CALC BUN/CREAT (test code = 44 RATIO [...] code = 2219) 13 U/L COMPREHENSIVE METABOLIC [id number] 00:00:00 Test Item Value Reference Range Interpretation Comments GLUCOSE (test code = 2217) 398 MG/DL BUN (test code = 2208) 39 MG/DL CREATININE (test code = 2214) 0.88 MG/DL eGFR AMER. (test code 88 ML/MIN/1.73 = 19162) eGFR NON- AMER. (test 76 ML/MIN/1.73 code = 14625) CALC BUN/CREAT (test code = 44 RATIO [...] (test code = 2219) 13 U/L LIPID [id number] 00:00:00 Test Item Value Reference Range Interpretation Comments CHOLESTEROL (test code = 2210) 255 MG/DL TRIGLYCERIDES (test code = 2232) 144 MG/DL HDL CHOLESTEROL (test code = 2220) 62 MG/DL CALC LDL CHOL (test code = 2237) 164 MG/DL RISK RATIO LDL/HDL (test code = 2.65 RATIO 2238) LIPID [id number] 00:00:00 Test Item Value Reference Range Interpretation Comments CHOLESTEROL (test code = 2210) 255 MG/DL TRIGLYCERIDES (test code = 2232) 144 MG/DL HDL CHOLESTEROL (test code = 2220) 62 MG/DL CALC LDL CHOL (test code = 2237) 164 MG/DL RISK RATIO LDL/HDL (test code = 2.65 RATIO 2238) HEMOGLOBIN [id number] 00:00:00 Test Item Value Reference Range Interpretation Comments HEMOGLOBIN A1c (test code = 84644) 12.9 % HEMOGLOBIN [id number] 00:00:00 Test Item Value Reference Range Interpretation Comments HEMOGLOBIN A1c (test code = 72936) 12.9 % HEMOGLOBIN [id number] 00:00:00 Test Item Value Reference Range Interpretation Comments HEMOGLOBIN A1c (test code = 95468) 12.9 % COMPREHENSIVE METABOLIC [id number] 00:00:00 Test Item Value Reference Range Interpretation Comments GLUCOSE (test code = 2217) 398 MG/DL BUN (test code = 2208) 39 MG/DL CREATININE (test code = 2214) 0.88 MG/DL eGFR AMER. (test code 88 ML/MIN/1.73 = 81332) eGFR NON- AMER. (test 76 ML/MIN/1.73 code = 43005) CALC BUN/CREAT (test code = 44 RATIO [...] code = 2219) 13 U/L COMPREHENSIVE METABOLIC [id number] 00:00:00 Test Item Value Reference Range Interpretation Comments GLUCOSE (test code = 221) 398 MG/DL BUN (test code = 2208) 39 MG/DL CREATININE (test code = 2214) 0.88 MG/DL eGFR AMER. (test code 88 ML/MIN/1.73 = 22877) eGFR NON- AMER. (test 76 ML/MIN/1.73 code = 66126) CALC BUN/CREAT (test code = 44 RATIO [...] (test code = 2219) 13 U/L LIPID [id number] 00:00:00 Test Item Value Reference Range Interpretation Comments CHOLESTEROL (test code = 2210) 255 MG/DL TRIGLYCERIDES (test code = 2232) 144 MG/DL HDL CHOLESTEROL (test code = 2220) 62 MG/DL CALC LDL CHOL (test code = 2237) 164 MG/DL RISK RATIO LDL/HDL (test code = 2.65 RATIO 2238) LIPID [id number] 00:00:00 Test Item Value Reference Range Interpretation Comments CHOLESTEROL (test code = 2210) 255 MG/DL TRIGLYCERIDES (test code = 2232) 144 MG/DL HDL CHOLESTEROL (test code = 2220) 62 MG/DL CALC LDL CHOL (test code = 2237) 164 MG/DL RISK RATIO LDL/HDL (test code = 2.65 RATIO 2238) HEMOGLOBIN [id number] 00:00:00 Test Item Value Reference Range Interpretation Comments HEMOGLOBIN A1c (test code = 37170) 12.9 % HEMOGLOBIN [id number] 00:00:00 Test Item Value Reference Range Interpretation Comments HEMOGLOBIN A1c (test code = 09018) 12.9 % HEMOGLOBIN [id number] 00:00:00 Test Item Value Reference Range Interpretation Comments HEMOGLOBIN A1c (test code = 88788) 12.9 % COMPREHENSIVE METABOLIC [id number] 00:00:00 Test Item Value Reference Range Interpretation Comments GLUCOSE (test code = 2217) 398 MG/DL BUN (test code = 2208) 39 MG/DL CREATININE (test code = 2214) 0.88 MG/DL eGFR AMER. (test code 88 ML/MIN/1.73 = 16841) eGFR NON- AMER. (test 76 ML/MIN/1.73 code = 95344) CALC BUN/CREAT (test code = 44 RATIO [...] code = 2219) 13 U/L COMPREHENSIVE METABOLIC [id number] 00:00:00 Test Item Value Reference Range Interpretation Comments GLUCOSE (test code = 2217) 398 MG/DL BUN (test code = 2208) 39 MG/DL CREATININE (test code = 2214) 0.88 MG/DL eGFR AMER. (test code 88 ML/MIN/1.73 = 58048) eGFR NON- AMER. (test 76 ML/MIN/1.73 code = 85954) CALC BUN/CREAT (test code = 44 RATIO [...] (test code = 2219) 13 U/L LIPID [id number] 00:00:00 Test Item Value Reference Range Interpretation Comments CHOLESTEROL (test code = 2210) 255 MG/DL TRIGLYCERIDES (test code = 2232) 144 MG/DL HDL CHOLESTEROL (test code = 2220) 62 MG/DL CALC LDL CHOL (test code = 2237) 164 MG/DL RISK RATIO LDL/HDL (test code = 2.65 RATIO 2238) LIPID [id number] 00:00:00 Test Item Value Reference Range Interpretation Comments CHOLESTEROL (test code = 2210) 255 MG/DL TRIGLYCERIDES (test code = 2232) 144 MG/DL HDL CHOLESTEROL (test code = 2220) 62 MG/DL CALC LDL CHOL (test code = 2237) 164 MG/DL RISK RATIO LDL/HDL (test code = 2.65 RATIO 2238) HEMOGLOBIN [id number] 00:00:00 Test Item Value Reference Range Interpretation Comments HEMOGLOBIN A1c (test code = 74197) 12.9 % HEMOGLOBIN [id number] 00:00:00 Test Item Value Reference Range Interpretation Comments HEMOGLOBIN A1c (test code = 00719) 12.9 % HEMOGLOBIN [id number] 00:00:00 Test Item Value Reference Range Interpretation Comments HEMOGLOBIN A1c (test code = 33289) 12.9 % HEMOGLOBIN [id number] 00:00:00 Test Item Value Reference Range Interpretation Comments HEMOGLOBIN A1c (test code = 64781) 13.9 % CBC W/AUTO [id number] 00:00:00 Test Item Value Reference Range Interpretation [...] code = 1015) 272 K/UL CBC W/AUTO [id number] 00:00:00 Test Item Value Reference Range Interpretation [...] code = 1015) 272 K/UL CBC W/AUTO [id number] 00:00:00 Test Item Value Reference Range Interpretation [...] code = 1015) 272 K/UL COMPREHENSIVE METABOLIC [id number] 00:00:00 Test Item Value Reference Range Interpretation Comments GLUCOSE (test code = 2217) 241 MG/DL BUN (test code = 2208) 21 MG/DL CREATININE (test code = 2214) 0.83 MG/DL eGFR AMER. (test code 94 ML/MIN/1.73 = 61431) eGFR NON- AMER. (test 81 ML/MIN/1.73 code = 23018) CALC BUN/CREAT (test code = 25 RATIO [...] code = 2219) 14 U/L COMPREHENSIVE METABOLIC [id number] 00:00:00 Test Item Value Reference Range Interpretation Comments GLUCOSE (test code = 2217) 241 MG/DL BUN (test code = 2208) 21 MG/DL CREATININE (test code = 2214) 0.83 MG/DL eGFR AMER. (test code 94 ML/MIN/1.73 = 86624) eGFR NON- AMER. (test 81 ML/MIN/1.73 code = 11968) CALC BUN/CREAT (test code = 25 RATIO [...] (test code = 2219) 14 U/L LIPID [id number] 00:00:00 Test Item Value Reference Range Interpretation Comments CHOLESTEROL (test code = 2210) 255 MG/DL TRIGLYCERIDES (test code = 2232) 116 MG/DL HDL CHOLESTEROL (test code = 2220) 75 MG/DL CALC LDL CHOL (test code = 2237) 157 MG/DL RISK RATIO LDL/HDL (test code = 2.09 RATIO 2238) LIPID [id number] 00:00:00 Test Item Value Reference Range Interpretation [...] (test code = 2821) 0.892 UIU/ML HEMOGLOBIN [id number] 00:00:00 Test Item Value Reference Range Interpretation Comments HEMOGLOBIN A1c (test code = 28641) 13.9 % HEMOGLOBIN [id number] 00:00:00 Test Item Value Reference Range Interpretation Comments HEMOGLOBIN A1c (test code = 76930) 13.9 % HEMOGLOBIN [id number] 00:00:00 Test Item Value Reference Range Interpretation Comments HEMOGLOBIN A1c (test code = 07212) 13.9 % CBC W/AUTO [id number] 00:00:00 Test Item Value Reference Range Interpretation [...] code = 1015) 272 K/UL CBC W/AUTO [id number] 00:00:00 Test Item Value Reference Range Interpretation [...] code = 1015) 272 K/UL CBC W/AUTO [id number] 00:00:00 Test Item Value Reference Range Interpretation [...] code = 1015) 272 K/UL COMPREHENSIVE METABOLIC [id number] 00:00:00 Test Item Value Reference Range Interpretation Comments GLUCOSE (test code = 2217) 241 MG/DL BUN (test code = 2208) 21 MG/DL CREATININE (test code = 2214) 0.83 MG/DL eGFR AMER. (test code 94 ML/MIN/1.73 = 14228) eGFR NON- AMER. (test 81 ML/MIN/1.73 code = 64603) CALC BUN/CREAT (test code = 25 RATIO [...] code = 2219) 14 U/L COMPREHENSIVE METABOLIC [id number] 00:00:00 Test Item Value Reference Range Interpretation Comments GLUCOSE (test code = 2217) 241 MG/DL BUN (test code = 2208) 21 MG/DL CREATININE (test code = 2214) 0.83 MG/DL eGFR AMER. (test code 94 ML/MIN/1.73 = 66845) eGFR NON- AMER. (test 81 ML/MIN/1.73 code = 36428) CALC BUN/CREAT (test code = 25 RATIO [...] (test code = 2219) 14 U/L LIPID [id number] 00:00:00 Test Item Value Reference Range Interpretation Comments CHOLESTEROL (test code = 2210) 255 MG/DL TRIGLYCERIDES (test code = 2232) 116 MG/DL HDL CHOLESTEROL (test code = 2220) 75 MG/DL CALC LDL CHOL (test code = 2237) 157 MG/DL RISK RATIO LDL/HDL (test code = 2.09 RATIO 2238) LIPID [id number] 00:00:00 Test Item Value Reference Range Interpretation [...] (test code = 2821) 0.892 UIU/ML HEMOGLOBIN [id number] 00:00:00 Test Item Value Reference Range Interpretation Comments HEMOGLOBIN A1c (test code = 34542) 13.9 % HEMOGLOBIN [id number] 00:00:00 Test Item Value Reference Range Interpretation Comments HEMOGLOBIN A1c (test code = 05232) 13.9 % HEMOGLOBIN [id number] 00:00:00 Test Item Value Reference Range Interpretation Comments HEMOGLOBIN A1c (test code = 60801) 13.9 % CBC W/AUTO [id number] 00:00:00 Test Item Value Reference Range Interpretation [...] code = 1015) 272 K/UL CBC W/AUTO [id number] 00:00:00 Test Item Value Reference Range Interpretation [...] code = 1015) 272 K/UL CBC W/AUTO [id number] 00:00:00 Test Item Value Reference Range Interpretation [...] code = 1015) 272 K/UL COMPREHENSIVE METABOLIC [id number] 00:00:00 Test Item Value Reference Range Interpretation Comments GLUCOSE (test code = 2217) 241 MG/DL BUN (test code = 2208) 21 MG/DL CREATININE (test code = 2214) 0.83 MG/DL eGFR AMER. (test code 94 ML/MIN/1.73 = 08316) eGFR NON- AMER. (test 81 ML/MIN/1.73 code = 61066) CALC BUN/CREAT (test code = 25 RATIO [...] code = 2219) 14 U/L COMPREHENSIVE METABOLIC [id number] 00:00:00 Test Item Value Reference Range Interpretation Comments GLUCOSE (test code = 2217) 241 MG/DL BUN (test code = 2208) 21 MG/DL CREATININE (test code = 2214) 0.83 MG/DL eGFR AMER. (test code 94 ML/MIN/1.73 = 91521) eGFR NON- AMER. (test 81 ML/MIN/1.73 code = 52802) CALC BUN/CREAT (test code = 25 RATIO [...] BILIRUBIN, TOTAL (test code = 0.3 MG/DL 7) ALKALINE PHOSPHATASE (test 121 U/L code = 2204) AST (test code = 2218) 13 U/L ALT (test code = 2219) 14 U/L LIPID [id number] 00:00:00 Test Item Value Reference Range Interpretation Comments CHOLESTEROL (test code = 2210) 255 MG/DL TRIGLYCERIDES (test code = 2232) 116 MG/DL HDL CHOLESTEROL (test code = 2220) 75 MG/DL CALC LDL CHOL (test code = 2237) 157 MG/DL RISK RATIO LDL/HDL (test code = 2.09 RATIO 2238) LIPID [id number] 00:00:00 Test Item Value Reference Range Interpretation [...] (test code = 2821) 0.892 UIU/ML HEMOGLOBIN [id number] 00:00:00 Test Item Value Reference Range Interpretation Comments HEMOGLOBIN A1c (test code = 38761) 13.9 % HEMOGLOBIN [id number] 00:00:00 Test Item Value Reference Range Interpretation Comments HEMOGLOBIN A1c (test code = 75162) 13.9 % HEMOGLOBIN [id number] 00:00:00 Test Item Value Reference Range Interpretation Comments HEMOGLOBIN A1c (test code = 59025) 13.9 % CBC W/AUTO [id number] 00:00:00 Test Item Value Reference Range Interpretation [...] code = 1015) 272 K/UL CBC W/AUTO [id number] 00:00:00 Test Item Value Reference Range Interpretation [...] code = 1015) 272 K/UL CBC W/AUTO [id number] 00:00:00 Test Item Value Reference Range Interpretation [...] code = 1015) 272 K/UL COMPREHENSIVE METABOLIC [id number] 00:00:00 Test Item Value Reference Range Interpretation Comments GLUCOSE (test code = 2217) 241 MG/DL BUN (test code = 2208) 21 MG/DL CREATININE (test code = 2214) 0.83 MG/DL eGFR AMER. (test code 94 ML/MIN/1.73 = 84960) eGFR NON- AMER. (test 81 ML/MIN/1.73 code = 91624) CALC BUN/CREAT (test code = 25 RATIO [...] code = 2219) 14 U/L COMPREHENSIVE METABOLIC [id number] 00:00:00 Test Item Value Reference Range Interpretation Comments GLUCOSE (test code = 2217) 241 MG/DL BUN (test code = 2208) 21 MG/DL CREATININE (test code = 2214) 0.83 MG/DL eGFR AMER. (test code 94 ML/MIN/1.73 = 90868) eGFR NON- AMER. (test 81 ML/MIN/1.73 code = 71722) CALC BUN/CREAT (test code = 25 RATIO [...] (test code = 2219) 14 U/L LIPID [id number] 00:00:00 Test Item Value Reference Range Interpretation Comments CHOLESTEROL (test code = 2210) 255 MG/DL TRIGLYCERIDES (test code = 2232) 116 MG/DL HDL CHOLESTEROL (test code = 2220) 75 MG/DL CALC LDL CHOL (test code = 2237) 157 MG/DL RISK RATIO LDL/HDL (test code = 2.09 RATIO 2238) LIPID [id number] 00:00:00 Test Item Value Reference Range Interpretation [...] Interpretation Comments T3 UPTAKE (test code = 281) 32.8 % T4 (THYROXINE) (test code = 7.1 UG/DL 2818) CALCULATED T7 (FTI) (test code = 2.33 2820) TSH (test code = 2821) 0.892 UIU/ML THYROID II PROFILE (T3U, T4, T7, TSH)[id number] 00:00:00 Test Item Value Reference Range Interpretation Comments T3 UPTAKE (test code = 2817) 32.8 % T4 (THYROXINE) (test code = 7.1 UG/DL 9) CALCULATED T7 (FTI) (test code = 2.33 9650) TSH (test code = 2821) 0.892 UIU/ML HEMOGLOBIN [id number] 00:00:00 Test Item Value Reference Range Interpretation Comments HEMOGLOBIN A1c (test code = 44342) 13.9 % HEMOGLOBIN [id number] 00:00:00 Test Item Value Reference Range Interpretation Comments HEMOGLOBIN A1c (test code = 20025) 13.9 %
[2023-03-06] MEDS ORDERED: IBUPROFEN 400 MG TAB ONE (10:46)
[2023-03-06 10:58] LABS: Absolute Lymphocytes (CBC) 2.3 K/uL (0.7-4.9); Hematocrit 28.5 % (36.0-45.0); Lymphocytes % 23.8 % (15.3-44.8); MCV 84.3 fL (80-100); RBC Red Blood Cell Count 3.38 M/uL (3.86-4.86)
[2023-03-06 11:09] LABS: Protime INR 0.82
[2023-03-06 11:16] LABS: Potassium 4.3 mEq/L (3.5-5.1); Troponin High Sensitivity 4.9 pg/mL (<58.9)
--- NOTE | 2023-03-06 11:29 | RAD REPORT ---
EXAM DESCRIPTION: [facility] Single View03/06/2023 11:21 am CLINICAL HISTORY: Chest pain COMPARISON: November 2019. FINDINGS: The lungs appear clear of acute infiltrate. The heart is normal size IMPRESSION: No acute abnormalities displayed
[2023-03-06] MEDS ORDERED: NA CHLORIDE 0.9% 1,000 ML ONE (11:42)
--- NOTE | 2023-03-06 11:57 | RAD REPORT ---
EXAM DESCRIPTION: CT - Chest For Pe Angio - 03/06/2023 11:42 am CLINICAL HISTORY: Chest pain COMPARISON: None. TECHNIQUE: Dynamically enhanced axial 3 mm thick images of the chest were obtained during administra tion of 75 mL Isovue 370 IV contrast. Coronal and oblique reconstruction images were generated and re viewed. Exam utilizes a protocol for optimal evaluation of pulmonary arterial tree. Maximum intensity projections 3D imaging was utilized All CT scans are performed using dose optimization technique as appropriate and may include automated exposure control or mA/KV adjustment according to patient size. FINDINGS: Bovine aorta. Aberrant right subclavian artery A pulmonary embolus is not seen. A thoracic aortic aneurysm is not noted. A pleural effusion is not seen. A pericardial effusion is not seen. A lung consolidation is not present. A few areas of subsegmental atelectasis are present within the l maury bases IMPRESSION: Negative for a pulmonary embolism.
--- NOTE | 2023-03-06 12:30 | EDPHYS ---
Physician Documentation [facility] Name: Khris Salazar Age: 57 yrs Sex: Female : 1965 Arrival Date: 03/06/2023 Time: 10:15 Bed 20 Private MD: ED Physician Peewee Pal HPI: 03/06 10:37 This 57 yrs old Female presents to ER via Ambulatory with complaints of rn Chest/Back Pain when Breathing. 10:37 The patient or guardian reports chest pain that is located primarily in the anterior rn chest wall, left. 10:37 Onset: 2 day(s) ago. The pain radiates to left back. Associated signs and symptoms: rn Pertinent positives: cough, Pertinent negatives: abdominal pain, shortness of breath, syncope, vomiting. The chest pain is described as sharp, stabbing. Duration: The patient or guardian reports multiple episodes, that are intermittent. Modifying factors: The symptoms are alleviated by nothing. the symptoms are aggravated by deep breath. Severity of pain: At its worst the pain was mild in the emergency department the pain is unchanged. The patient has not experienced similar symptoms in the past. The patient has not recently seen a physician. Pt reports last week was sick with cough/congestion/diarrhea/muscle aches and fever, illness is improving, but now for 2 days experiencing sharp stabbing chest pain when breathing. NO hx of DVT/PE. NO trauma. No hemoptysis. . Historical: - Allergies: 10:25 No Known Allergies; vg1 - Home Meds: 10:25 losartan-hydrochlorothiazide 100-12.5 mg Oral tab 1 tab once daily [Active]; Lisinopril vg1 Oral [Active]; Levemir FlexTouch U-100 Insuln 100 unit/mL (3 mL) subcutaneous inpn 40 unit nightly [Active]; - PMHx: 10:25 Diabetes - IDDM; Hypertension; vg1 - Immunization history:: Client reports having NOT received the Covid vaccine. - Social history:: Smoking status: Patient denies any tobacco usage or history of. - Family history:: not pertinent. - Hospitalizations: : No recent hospitalization is reported. ROS: 10:37 Constitutional: Negative for fever, chills, and weight loss, Neck: Negative for injury, rn pain, and swelling, Cardiovascular: Negative for chest pain, palpitations, and edema, Respiratory: Negative for wheezing Abdomen/GI: Negative for abdominal pain, nausea, vomiting, diarrhea, and constipation, MS/Extremity: Negative for injury and deformity, Skin: Negative for injury, rash, and discoloration, Neuro: Negative for headache, weakness, numbness, tingling, and seizure. Exam: 10:37 Constitutional: This is a well developed, well nourished patient who is awake, alert, rn and in no acute distress. Ambulatory to room without difficulty or distress Head/Face: Normocephalic, atraumatic. Cardiovascular: Regular rate and rhythm. No pulse deficits. Respiratory: Clear bilateral breath sounds. No increased work of breathing, no retractions or nasal flaring. Abdomen/GI: Soft, non-tender Skin: Warm, dry MS/ Extremity: Pulses equal, no cyanosis. Neuro: Awake and alert, GCS 15 10:47 ECG was reviewed by the Attending Physician. rn Vital Signs: 10:23 BP 163 / 83; Pulse 94; Resp 16; Temp 99.3(O); Pulse Ox 99% ; Weight 72.57 kg; Height 5 vg1 ft. 2 in. ; Pain 10/10; 10:45 BP 164 / 68; Pulse 88; Resp 18; Pulse Ox 99% ; ko1 11:30 BP 148 / 60; Pulse 88; Resp 18; Pulse Ox 99% ; ko1 12:00 BP 155 / 72; Pulse 89; Resp 18; Pulse Ox 99% ; ko1 13:16 BP 158 / 64; Pulse 92; Resp 18; Pulse Ox 99% on R/A; ko1 10:23 Body Mass Index 29.26 (72.57 kg, 157.48 cm) vg1 10:23 Pain Scale: Adult vg1 MDM: 10:23 Patient medically screened. rn 12:27 Differential diagnosis: acute pericarditis, anxiety, chest wall pain, costochondritis, rn pericarditis, pleurisy, pneumonia, pneumothorax, pulmonary embolus. Data reviewed: vital signs, nurses notes, lab test result(s), EKG, radiologic studies, CT scan, plain films, and as a result, I will discharge patient. Counseling: I had a detailed discussion with the patient and/or guardian regarding: the historical points, exam findings, and any diagnostic results supporting the discharge/admit diagnosis, lab results, radiology results, the need for outpatient follow up, to return to the emergency department if symptoms worsen or persist or if there are any questions or concerns that arise at home. Special discussion: Based on the patient's history, exam, and Dx evaluation, there is no indication for emergent intervention or inpatient Tx. It is understood by the patient/guardian that if the Sx's persist or worsen they need to return immediately for re-evaluation. I discussed with the patient/guardian in detail that at this point there is no indication for admission to the hospital. It is understood, however, that if the symptoms persist or worsen the patient needs to return immediately for re-evaluation. ED course: CT chest PE neg, trop neg, no oxygen requirement, most likely pleuritic pain from recent illness. Will dc home with pcp f/u and return precautions.. 03/06 10:36 Order name: BMP; Complete Time: rn 03/06 10:36 Order name: CBC with Diff; Complete Time: 03/06 10:36 Order name: D-Dimer; Complete Time: 03/06 10:36 Order name: NT PRO-BNP; Complete Time: 03/06 10:36 Order name: PT-INR; Complete Time: 03/06 10:36 Order name: Ptt, Activated; Complete Time: 03/06 10:36 Order name: Troponin HS; Complete Time: rn 03/06 10:36 Order name: XRAY CXR (1 view); Complete Time: : rn 03/06 11:26 Order name: CT Chest For PE Angio; Complete Time: : rn 03/06 10:36 Order name: EKG; Complete Time: 10: rn 03/06 10:36 Order name: Cardiac monitoring; Complete Time: 03/06 10:36 Order name: EKG - Nurse/Tech; Complete Time: rn 03/06 10:36 Order name: IV Saline Lock; Complete Time: rn 03/06 10:36 Order name: Labs collected and sent; Complete Time: rn 03/06 10:36 Order name: O2 Per Protocol; Complete Time: rn 03/06 10:36 Order name: O2 Sat Monitoring; Complete Time: 10:54 rn EC:47 Rate is 89 beats/min. Rhythm is regular. QRS [place] is Normal. SD interval is normal. QRS rn interval is normal. QT interval is normal. No Q waves. T waves are Normal. No ST changes noted. Clinical impression: Normal ECG. Interpreted by me. Reviewed by me. Administered Medications: 10:53 Drug: Ibuprofen PO 800 mg Route: PO; ph 13:21 Follow up: Response: No adverse reaction ko1 11:41 Drug: NS 0.9% IV 1000 ml Route: IV; Rate: 1000 ml; Site: right antecubital; ko1 13:15 Follow up: IV Status: Completed infusion; IV Intake: 1000ml ko1 Disposition Summary: 03/06/23 12:29 Discharge Ordered Location: Home rn Problem: new rn Symptoms: have improved rn Condition: Stable rn Diagnosis - Chest pain, unspecified rn - Cough rn Followup: rn - With: Private Physician - When: As needed - Reason: Recheck today's complaints, Re-evaluation by your physician Discharge Instructions: - Discharge Summary Sheet rn - Nonspecific Chest Pain, Adult rn - Pleurisy rn Forms: - Medication Reconciliation Form rn - Thank You Letter rn - Antibiotic varnish dipper - Prescription Opioid Use rn Prescriptions: - Medrol (Arian) 4 mg Oral Tablets, Dose Pack - take 1 tablet by ORAL route as directed - follow package instructions; 1 rn packet; Refills: 0, Product Selection Permitted Signatures: Dispatcher [employer] EDPeewee Leger MD MD rn Hall, Patricia, RN RN Carmelina Llamas, RN RN vg1 Sherry Srinivasan, RN RN ko1
--- NOTE | 2023-03-06 12:30 | ER ---
Nurse's Notes [facility] Name: Khris Salazar Age: 57 yrs Sex: Female : 1965 Arrival Date: 03/06/2023 Time: 10:15 Bed 20 Private MD: Diagnosis: Chest pain, unspecified;Cough Presentation: 03/06 10:23 Chief complaint: Patient states: Chest and back pain with deep inhalation since Sunday vg1 night, also states cough and congestion. Coronavirus screen: Vaccine status: Patient reports being unvaccinated. Client denies travel out of the [place] in the last 14 days. Ebola Screen: Patient negative for fever greater than or equal to 101.5 degrees Fahrenheit, and additional compatible Ebola Virus Disease symptoms Patient denies exposure to infectious person. Patient denies travel to an Ebola-affected area in the 21 days before illness onset. Initial Sepsis Screen: Does the patient meet any 2 criteria? No. Patient's initial sepsis screen is negative. Does the patient have a suspected source of infection? No. Patient's initial sepsis screen is negative. Risk Assessment: Do you want to hurt yourself or someone else? Patient reports no desire to harm self or others. Onset of symptoms was March 04, 2023. 10:23 Method Of Arrival: Ambulatory vg1 10:23 Acuity: DINO 2 vg1 Triage Assessment: 10:25 General: Appears uncomfortable, Behavior is calm, cooperative. Pain: Complains of pain vg1 in anterior aspect of left upper chest Pain radiates to Left shoulder Pain currently is 10 out of 10 on a pain scale. Pain began 2-3 days ago. Cardiovascular: Reports chest pain, Patient's skin is warm and dry. Respiratory: Reports pain with cough pain with respiration Airway is patent Respiratory effort is even, unlabored. Historical: - Allergies: 10:25 No Known Allergies; vg1 - Home Meds: 10:25 losartan-hydrochlorothiazide 100-12.5 mg Oral tab 1 tab once daily [Active]; Lisinopril vg1 Oral [Active]; Levemir FlexTouch U-100 Insuln 100 unit/mL (3 mL) subcutaneous inpn 40 unit nightly [Active]; - PMHx: 10:25 Diabetes - IDDM; Hypertension; vg1 - Immunization history:: Client reports having NOT received the Covid vaccine. - Social history:: Smoking status: Patient denies any tobacco usage or history of. - Family history:: not pertinent. - Hospitalizations: : No recent hospitalization is reported. Screenin:50 [facility] ED Fall Risk Assessment (Adult) History of falling in the last 3 months, ko1 including since admission No falls in past 3 months (0 pts) Confusion or Disorientation No (0 pts) Intoxicated or Sedated No (0 pts) Impaired Gait No (0 pts) Mobility Assist Device Used No (0 pt) Altered Elimination No (0 pt) Score/Fall Risk Level 0 - 2 = Low Risk Oriented to surroundings, Maintained a safe environment, Educated pt \T\ family on fall prevention, incl call for assistance when getting out of bed, Assessed \T\ reinforced patient's understanding of fall precautions, Provided non-skid footwear, Hourly rounding (assess needs \T\ fall precautionary measures) done, Used ambulatory aids as needed (educated on \T\ assisted with), Used gait belt as appropriate. Abuse screen: Denies threats or abuse. Denies injuries from another. Nutritional screening: No deficits noted. Tuberculosis screening: No symptoms or risk factors identified. Assessment: 10:50 General: Appears in no apparent distress. uncomfortable, Behavior is cooperative, ko1 appropriate for age, anxious. Pain: Complains of pain in chest and anterior aspect of left upper chest. Neuro: No deficits noted. Cardiovascular: Reports chest pain. Respiratory: Reports pain with respiration. GI: No deficits noted. : No deficits noted. EENT: No deficits noted. Derm: No deficits noted. Musculoskeletal: No deficits noted. Vital Signs: 10:23 BP 163 / 83; Pulse 94; Resp 16; Temp 99.3(O); Pulse Ox 99% ; Weight 72.57 kg; Height 5 vg1 ft. 2 in. ; Pain 10/10; 10:45 BP 164 / 68; Pulse 88; Resp 18; Pulse Ox 99% ; ko1 11:30 BP 148 / 60; Pulse 88; Resp 18; Pulse Ox 99% ; ko1 12:00 BP 155 / 72; Pulse 89; Resp 18; Pulse Ox 99% ; ko1 13:16 BP 158 / 64; Pulse 92; Resp 18; Pulse Ox 99% on R/A; ko1 10:23 Body Mass Index 29.26 (72.57 kg, 157.48 cm) vg1 10:23 Pain Scale: Adult vg1 ED Course: 10:18 Patient arrived in ED. rg4 10:23 Peewee Pal MD is Attending Physician. rn 10:25 Triage completed. vg1 10:25 Arm band placed on. vg1 10:29 Sherry Srinivasan, RN is Primary Nurse. ko1 10:50 Patient has correct armband on for positive identification. Placed in gown. Bed in low ko1 position. Call light in reach. Side rails up X 1. Client placed on continuous cardiac and pulse oximetry monitoring. NIBP monitoring applied. shake backboard notcher on. Warm blanket given. 10:50 No provider procedures requiring assistance completed. Inserted saline lock: 20 gauge ko1 in right antecubital area, using aseptic technique. Blood collected. 10:54 BMP Sent. ko1 10:54 CBC with Diff Sent. ko1 10:54 D-Dimer Sent. ko1 10:54 NT PRO-BNP Sent. ko1 10:54 PT-INR Sent. ko1 10:54 Ptt, Activated Sent. ko1 10:54 Troponin HS Sent. ko1 11:23 XRAY CXR (1 view) In Process Unspecified. EDMS 11:44 CT Chest For PE Angio In Process Unspecified. EDMS 13:19 IV discontinued, intact, bleeding controlled, No redness/swelling at site. Pressure ko1 dressing applied. Administered Medications: 10:53 Drug: Ibuprofen PO 800 mg Route: PO; ph 13:21 Follow up: Response: No adverse reaction ko1 11:41 Drug: NS 0.9% IV 1000 ml Route: IV; Rate: 1000 ml; Site: right antecubital; ko1 13:15 Follow up: IV Status: Completed infusion; IV Intake: 1000ml ko1 Medication: 10:50 VIS not applicable for this client. ko1 Intake: 13:15 IV: 1000ml; Total: 1000ml. ko1 Outcome: 12:29 Discharge ordered by . rn 13:19 Discharged to home ambulatory. ko1 13:19 Condition: improved 13:19 Discharge instructions given to patient, Instructed on discharge instructions, follow up and referral plans. medication usage, Demonstrated understanding of instructions, follow-up care, medications, Prescriptions given X 1. 13:21 Patient left the ED. ko1 Signatures: Dispatcher [employer] EDMS Peewee Pal MD MD rn Fung, Jeni, RN RN Sandra Teresa 4 Carmelina Teresa RN RN vg1 Sherry Srinivasan RN RN ko1 Corrections: (The following items were deleted from the chart) 10:27 10:23 Acuity: DINO 3 vg1 vg1
[2023-03-06 14:07] VITALS: TEMP 99.3; O2SAT 99
[2023-03-06 14:14] VITALS: BP 158/64
--- NOTE | 2023-03-07 14:10 | EKG ---
Test Date: 2023-03-06 Test Time: 10:43:15 Cardroom Supervisor: LEXI MEASUREMENT RESULTS: Intervals: Rate: 89 MN: 142 QRSD: 94 QT: 370 QTc: 450 [place]: P: 58 MN: 142 QRS: -27 T: 50 INTERPRETIVE STATEMENTS: Normal sinus rhythm Normal ECG Compared to ECG 11/13/2022 13:14:57 Left ventricular hypertrophy no longer present Electronically Signed On 03-07-23 14:08:16 CDT by Shalom Bello
== END 2023-03-06 13:21 | disposition home or self-care (01) ==
LOC: ER 10:15
DX: R07.89 Other chest pain (principal); R05.9 Cough, unspecified
CPT/HCPCS: 36415; 71045; 71275; 80048; 83880; 84484; 85025; 85379; 85610; 85730; 93005; 96360; 96361; 99285; J7030; Q9967

== ENCOUNTER 2023-10-15 14:21 | Emergency (ER) | payer SELFPAY ==
--- OUTSIDE RECORDS SUMMARY | 2023-10-15 14:41 | XMS REPORT | Continuity of Care Document ---
Author Name Unknown Address [address] [facility] José Miguel. [address] [place] [address] [facility] thconnect Address [address] [facility]. [address] [place] [address] Care Team Providers Care Engagement Manager Name Role Phone Pcp, Patient Does Not Have A Primary Care Physic jaimee Doctor Unassigned, [place] Attending Clinician [facility] HE[facility] [place] Attending Clinician Unavailable Heather Houston MD Attending Clinician [phone] Felipa Monson LVN Attending Clinician [phone] GUZMAN SUTTON Attending Clinician Unavailable Serenity Doe NP Attending Clinician [phone] Sandeep Shepherd MD Attending Clinician [phone] Guzman Sutton MD Attending Clinician [phone] Wiliam Gutierres APN Attending Clinician [phone] FLYNN ZARATE Attending Clinician Unavailable GUZMAN SUTTON Admitting Clinician Unavailable Guzman Sutton MD Admitting Clinician [phone] Problems Condition Name Condition Details Condition Category Status Onset Date Resolution Date Last Treatment Date Treating Clinician Comments Source Infected pilonidal cyst Infected pilonidal cyst Disease Active 2020-11 00:00: 00 [facility] ZINA (acute kidney injury) ZINA (acute kidney injury) Disease Active 2020-11 00:00: 00 [facility] Hypokalemi a Hypokalemi a Disease Active 05-17 00:00: 00 [facility] Abscess Abscess Disease Active 05-11 00:00: 00 [facility] GERD (gastroeso phageal reflux disease) GERD (gastroeso phageal reflux disease) Disease Active [facility] Blurred vision Blurred vision Disease Active [facility] Type 2 diabetes mellitus Type 2 diabetes mellitus Disease Active Overview: Formattin g of this note might be different from the original. since 24 years old, on insulin for 5 years [facility] Allergies, Adverse Reactions, Alerts Allergy Name Allergy Type Status Severity Reaction(s) Onset Date Inactive Date Treating Clinician Comments Source NO KNOWN ALLERGIE S Drug Class Active [facility] Social History Social Habit Start Date Stop Date Quantity Comments Source Sexual orientation U [facility] History SDOH Alcohol Frequency [facility] History SDOH Alcohol Std Drinks [facility] History SDOH Alcohol Binge [facility] Exposure to SARS-CoV-2 (event) Not sure [facility] Alcohol intake 2022-05-16 00:00:00 2022-05-16 00:00:00 0 /d [facility] History of Social function 2021-11-14 00:00:00 2021-11-14 00:00:00 [facility] Cigarettes smoked current (pack per day) - Reported 2016-05-29 00:00:00 2016-05-29 00:00:00 [facility] Alcohol Comment 2016-05-29 00:00:00 2016-05-29 00:00:00 occasionally [facility] Tobacco use and exposure 2016-05-29 00:00:00 2016-05-29 00:00:00 Former smokeless tobacco user [facility] History of tobacco use 2016-05-11 00:00:00 User of smokeless tobacco [facility] Sex Ass[birth year] At 1965 00:00:00 1965 00:00:00 [facility] Smoking Status Start Date Stop Date Source Ex-smoker 2016-05-29 00:00:00 2016-05-29 00:00:00 [facility] Medications Ordered Medication Name Filled Medication Name Start Date Stop Date Current Medication? Ordering Clinician Indication Dosage Frequency Signature (SIG) Comments Components Source INJECT 10 UNITS TWICE A DAY 2021-11 00:00: 00 No TAKE 1 TABLET TWICE DAILY WITH FOOD. 2021-11 00:00: 00 No 7unit INJECT 50 UNITS UNDER SKIN IN THE MORNING AND 40 UNITS UNDER SKIN IN THE EVENING DAILY 2021-11 00:00: 00 No TAKE 1 TABLET DAILY. 2021-11 00:00: 00 No TAKE 10 ML 4-6 HOURS NEEDED 2021-11 00:00: 00 No Dose Unknown 2021-11 00:00: 00 No Dose Unknown 2021-11 00:00: 00 No Dose Unknown 2021-11 00:00: 00 No Dose Unknown 2021-11 00:00: 00 No TAKE 1 CAPSULE BY MOUTH EVERY 12 HOURS FOR 5 DAYS 2021-11 00:00: 00 No 100 TAKE 1 TABLET BY MOUTH EVERY 6 HOURS NEEDED FOR PAIN (SCALE 1-3) OR PAIN (SCALE 7-10) FOR UP TO 7 DAYS 2021-11 00:00: 00 No Dose Unknown 0 9-16 00:00: 00 No Dose Unknown 0 9-16 00:00: 00 No Dose Unknown 2021-0 9-16 00:00: 00 No Dose Unknown 2021-0 8-16 00:00: 00 No Dose Unknown 2021-0 8-16 00:00: 00 No Dose Unknown 0 8-16 00:00: 00 No Dose Unknown 2021-0 8-16 00:00: 00 No amlodipine 10 mg tablet 2021-0 7-15 00:00: 00 No 1mg amlodipine 10 mg tablet 2021-0 7-15 00:00: 00 No 1mg Dose Unknown 0 7-15 00:00: 00 No amlodipine 10 mg tablet 2021-0 7-15 00:00: 00 No 1mg losartan 100 mg tablet 2021-0 5-18 00:00: 00 No 1mg Dose Unknown 2021-0 5-18 00:00: 00 No losartan 100 mg tablet 2022-0 5-18 00:00: 00 No 1mg Dose Unknown 2022-0 5-18 00:00: 00 No losartan 100 mg tablet 2022-0 5-18 00:00: 00 No 1mg Dose Unknown 2022-0 5-18 00:00: 00 No losartan 100 mg tablet 2022-0 5-18 00:00: 00 No 1mg losartan 100 mg tablet 2022-0 5-18 00:00: 00 No 1mg Dose Unknown 2022-0 5-12 00:00: 00 No Dose Unknown 2022-0 5-12 00:00: 00 No Dose Unknown 2022-0 5-12 00:00: 00 No Dose Unknown 2022-0 5-12 00:00: 00 No Dose Unknown 2022-0 3-16 00:00: 00 No Dose Unknown 2022-0 3-16 00:00: 00 No Dose Unknown 2022-0 3-16 00:00: 00 No Dose Unknown 2022-0 3-16 00:00: 00 No Zyrtec-D 5 mg-120 mg tablet,exte nded release 2022-0 2-21 00:00: 00 No 1mg Dose Unknown 2022-0 2-21 00:00: 00 No Dose Unknown 2022-0 2-21 00:00: 00 No Dose Unknown 2022-0 2-21 00:00: 00 No Dose Unknown 2022-0 2-21 00:00: 00 No Dose Unknown 2022-0 2-21 00:00: 00 No Dose Unknown 2022-0 2-21 00:00: 00 No Dose Unknown 2022-0 2-21 00:00: 00 No Dose Unknown 2022-0 2-21 00:00: 00 No Dose Unknown 2022-0 2-21 00:00: 00 No Dose Unknown 2022-0 2-21 00:00: 00 No Dose Unknown 2022-0 2-21 00:00: 00 No Dose Unknown 2022-0 2-21 00:00: 00 No Dose Unknown 2022-0 2-21 00:00: 00 No Dose Unknown 2022-0 2-21 00:00: 00 No Dose Unknown 2022-0 2-21 00:00: 00 No Zyrtec-D 5 mg-120 mg tablet,exte nded release 2022-0 2-21 00:00: 00 No 1mg Dose Unknown 2022-0 2-21 00:00: 00 No Dose Unknown 2022-0 2-21 00:00: 00 No Dose Unknown 2022-0 2-21 00:00: 00 No Dose Unknown 2022-0 2-21 00:00: 00 No Dose Unknown 2022-0 2-21 00:00: 00 No Dose Unknown 2022-0 2-21 00:00: 00 No Dose Unknown 2022-0 2-21 00:00: 00 No Dose Unknown 2022-0 2-21 00:00: 00 No Dose Unknown 2022-0 2-21 00:00: 00 No Dose Unknown 2022-0 2-21 00:00: 00 No Dose Unknown 2022-0 2-21 00:00: 00 No Dose Unknown 2022-0 2-21 00:00: 00 No Dose Unknown 2022-0 2-21 00:00: 00 No Dose Unknown 2022-0 2-21 00:00: 00 No Dose Unknown 2022-0 2-21 00:00: 00 No Zyrtec-D 5 mg-120 mg tablet,exte nded release 2022-0 2-21 00:00: 00 No 1mg Dose Unknown 2022-0 2-21 00:00: 00 No Dose Unknown 2022-0 2-21 00:00: 00 No Dose Unknown 2022-0 2-21 00:00: 00 No Dose Unknown 2022-0 2-21 00:00: 00 No Dose Unknown 2022-0 2-21 00:00: 00 No Dose Unknown 2022-0 2-21 00:00: 00 No Dose Unknown 2022-0 2-21 00:00: 00 No Zyrtec-D 5 mg-120 mg tablet,exte nded release 2022-0 2-21 00:00: 00 No 1mg Dose Unknown 2022-0 2-21 00:00: 00 No Dose Unknown 2022-0 2-21 00:00: 00 No Dose Unknown 2022-0 2-21 00:00: 00 No Dose Unknown 2022-0 2-21 00:00: 00 No Dose Unknown 2022-0 2-21 00:00: 00 No Dose Unknown 2022-0 2-21 00:00: 00 No Dose Unknown 2022-0 2-21 00:00: 00 No Dose Unknown 2022-0 2-21 00:00: 00 No Dose Unknown 2022-0 2-21 00:00: 00 No Dose Unknown 2022-0 2-21 00:00: 00 No Dose Unknown 2022-0 2-21 00:00: 00 No Dose Unknown 2022-0 2-21 00:00: 00 No Dose Unknown 2022-0 2-21 00:00: 00 No Dose Unknown 2022-0 2-21 00:00: 00 No Dose Unknown 2022-0 2-21 00:00: 00 No Dose Unknown 2022-0 2-21 00:00: 00 No Dose Unknown 2022-0 2-21 00:00: 00 No Dose Unknown 2-0 2-21 00:00: 00 No Dose Unknown 2-0 2-21 00:00: 00 No Dose Unknown 2-0 2-21 00:00: 00 No Dose Unknown 2-0 2-21 00:00: 00 No Dose Unknown 2-0 2-21 00:00: 00 No Dose Unknown 2-0 2-21 00:00: 00 No Levemir U-100 Insulin 100 unit/mL subcutaneou s solution 2-0 2-19 00:00: 00 No unit/mL hydrochloro thiazide 12.5 mg tablet 2-0 2-19 00:00: 00 No 1mg amlodipine 10 mg tablet 2-0 2-19 00:00: 00 No 1mg Dose Unknown 2022-0 2-19 00:00: 00 No Levemir U-100 Insulin 100 unit/mL subcutaneou s solution 2022-0 2-19 00:00: 00 No unit/mL hydrochloro thiazide 12.5 mg tablet 2-0 2-19 00:00: 00 No 1mg amlodipine 10 mg tablet 2022-0 2-19 00:00: 00 No 1mg Dose Unknown 2022-0 2-19 00:00: 00 No Levemir U-100 Insulin 100 unit/mL subcutaneou s solution 2022-0 2-19 00:00: 00 No unit/mL hydrochloro thiazide 12.5 mg tablet 2-0 2-19 00:00: 00 No 1mg amlodipine 10 mg tablet 2022-0 2-19 00:00: 00 No 1mg Dose Unknown 2021-0 2-19 00:00: 00 No Dose Unknown 2021-0 2-19 00:00: 00 No hydrochloro thiazide 12.5 mg tablet 2021-0 2-19 00:00: 00 No 1mg amlodipine 10 mg tablet 2021-0 2-19 00:00: 00 No 1mg Dose Unknown 2021-0 2-19 00:00: 00 No Levemir U-100 Insulin 100 unit/mL subcutaneou s solution 2021-0 1-28 00:00: 00 No unit/mL Levemir U-100 Insulin 100 unit/mL subcutaneou s solution 2021-0 1 00:00: 00 No unit/mL Levemir U-100 Insulin 100 unit/mL subcutaneou s solution 2021-0 12-02 00:00: 00 No unit/mL Levemir U-100 Insulin 100 unit/mL subcutaneou s solution 2021-0 12-02 00:00: 00 No unit/mL Dose Unknown 2021-0 1-26 00:00: 00 No Dose Unknown 2021-0 1-26 00:00: 00 No Dose Unknown 2021-0 1- 00:00: 00 No Dose Unknown 2-0 1-26 00:00: 00 No Dose Unknown 2021-0 1-26 00:00: 00 No Dose Unknown 2021-0 1- 00:00: 00 No Dose Unknown 2021-0 1- 00:00: 00 No Dose Unknown 2021-0 1-26 00:00: 00 No Dose Unknown 2021-0 1-26 00:00: 00 No Dose Unknown 2021-0 1-26 00:00: 00 No Dose Unknown 2021-0 1-26 00:00: 00 No Dose Unknown 2-0 1-26 00:00: 00 No Dose Unknown 2-0 1-12 00:00: 00 No losartan 100 mg tablet 2021-0 1-12 00:00: 00 No 1mg Dose Unknown 2-0 1-12 00:00: 00 No losartan 100 mg tablet 2021-0 1-12 00:00: 00 No 1mg Dose Unknown 2021-0 1-12 00:00: 00 No losartan 100 mg tablet 11-16 00:00: 00 No 1mg Dose Unknown 11-16 00:00: 00 No losartan 100 mg tablet 11-16 00:00: 00 No 1mg Dose Unknown 11-14 00:00: 00 No Dose Unknown 11-14 00:00: 00 No Dose Unknown 11-14 00:00: 00 No Dose Unknown 11-14 00:00: 00 No ergocalcife rol, vitamin d2, 1,250 mcg (50,000 unit) capsule 11-10 00:00: 00 12-17 05:59 :00 No [id number] Take 1 capsule by mouth weekly for 6 doses. [facility] esomeprazol e 40 mg capsule 11-07 02:30: 05 Yes 40mg Take 40 mg by mouth daily with breakfast. [facility] insulin detemir U-100 (LEVEMIR U-100 INSULIN) 100 unit/mL injection 11-07 02:30: 05 Yes inject under the skin. [facility] insulin regular, human (NOVOLIN R INJECTION) 11-07 02:30: 05 Yes Inject as directed. [facility] esomeprazol e 40 mg capsule 11-07 02:30: 05 Yes 40mg Take 40 mg by mouth daily with breakfast. [facility] insulin detemir U-100 (LEVEMIR U-100 INSULIN) 100 unit/mL injection 11-07 02:30: 05 Yes inject under the skin. [facility] insulin regular, human (NOVOLIN R INJECTION) 11-07 02:30: 05 Yes Inject as directed. [facility] esomeprazol e 40 mg capsule 11-07 02:30: 05 Yes 40mg Take 40 mg by mouth daily with breakfast. [facility] insulin detemir U-100 (LEVEMIR U-100 INSULIN) 100 unit/mL injection 11-07 02:30: 05 Yes inject under the skin. [facility] insulin regular, human (NOVOLIN R INJECTION) 11-07 02:30: 05 Yes Inject as directed. [facility] ferrous sulfate 325 mg (65 mg iron) tablet 11-06 00:00: 00 12-07 05:59 :00 No [id number] 325mg Take 1 tablet by mouth daily for 30 days. [facility] magnesium oxide 400 mg (241.3 mg magnesium) tablet 11-05 00:00: 00 11-21 05:59 :00 No [id number] 400mg Take 1 tablet by mouth daily for 15 days. [facility] Dose Unknown 2020-11 00:00: 00 No Dose Unknown 2020-11 00:00: 00 No Dose Unknown 2020-11 00:00: 00 No Dose Unknown 2020-11 00:00: 00 No losartan 100 mg tablet 2020-11 00:00: 00 No 1mg Dose Unknown 2020-11 00:00: 00 No losartan 100 mg tablet 2020-11 00:00: 00 No 1mg Dose Unknown 2020-11 00:00: 00 No losartan 100 mg tablet 2020-11 00:00: 00 No 1mg Dose Unknown 2020-11 00:00: 00 No losartan 100 mg tablet 2020-11 00:00: 00 No 1mg Dose Unknown 2020-11 00:00: 00 No losartan 100 mg tablet 2020-11 00:00: 00 No 1mg losartan 100 mg tablet 2020-11 00:00: 00 No 1mg losartan 100 mg tablet 2020-11 00:00: 00 No 1mg losartan 100 mg tablet 2020-11 00:00: 00 No 1mg nitrofurant oin macrocrysta l 100 mg capsule 2020-11 00:00: 00 No 1mg nitrofurant oin macrocrysta l 100 mg capsule 2020-11 00:00: 00 No 1mg nitrofurant oin macrocrysta l 100 mg capsule 2020-11 00:00: 00 No 1mg nitrofurant oin macrocrysta l 100 mg capsule 2020-11 0- 00:00: 00 No 1mg methimazole 5 mg tablet 07-07 00:00: 00 No 1mg methimazole 5 mg tablet 07-07 00:00: 00 No 1mg methimazole 5 mg tablet 07-07 00:00: 00 No 1mg methimazole 5 mg tablet 07-07 00:00: 00 No 1mg Dose Unknown 05-20 00:00: 00 No Novolin R Regular U-100 Insulin 100 unit/mL injection solution 05-20 00:00: 00 No 1unit/m L hydrochloro thiazide 12.5 mg tablet 05-20 00:00: 00 No 1mg losartan 100 mg tablet 05-20 00:00: 00 No 1mg ferrous sulfate 324 mg (65 mg iron) tablet,gaby yed release 05-20 00:00: 00 No 1(65 mg iron) Dose Unknown 05-20 00:00: 00 No Dose Unknown 05-20 00:00: 00 No Novolin R Regular U-100 Insulin 100 unit/mL injection solution 05-20 00:00: 00 No 1unit/m L hydrochloro thiazide 12.5 mg tablet 05-20 00:00: 00 No 1mg losartan 100 mg tablet 05-20 00:00: 00 No 1mg ferrous sulfate 324 mg (65 mg iron) tablet,gaby yed release 05-20 00:00: 00 No 1(65 mg iron) Dose Unknown 05-20 00:00: 00 No Dose Unknown 05-20 00:00: 00 No Novolin R Regular U-100 Insulin 100 unit/mL injection solution 05-20 00:00: 00 No 1unit/m L hydrochloro thiazide 12.5 mg tablet 05-20 00:00: 00 No 1mg losartan 100 mg tablet 05-20 00:00: 00 No 1mg ferrous sulfate 324 mg (65 mg iron) tablet,gaby yed release 05-20 00:00: 00 No 1(65 mg iron) Dose Unknown 05-20 00:00: 00 No Dose Unknown 05-20 00:00: 00 No Novolin R Regular U-100 Insulin 100 unit/mL injection solution 05-20 00:00: 00 No 1unit/m L hydrochloro thiazide 12.5 mg tablet 05-20 00:00: 00 No 1mg losartan 100 mg tablet 05-20 00:00: 00 No 1mg ferrous sulfate 324 mg (65 mg iron) tablet,gaby yed release 05-20 00:00: 00 No 1(65 mg iron) Dose Unknown 05-20 00:00: 00 No losartan 100 mg tablet 05-16 00:00: 00 No 1mg losartan 100 mg tablet 05-16 00:00: 00 No 1mg losartan 100 mg tablet 05-16 00:00: 00 No 1mg losartan 100 mg tablet 05-16 00:00: 00 No 1mg methimazole 5 mg tablet 04-21 00:00: 00 No 1mg methimazole 5 mg tablet 04-21 00:00: 00 No 1mg methimazole 5 mg tablet 04-21 00:00: 00 No 1mg methimazole 5 mg tablet 04-21 00:00: 00 No 1mg Macrobid 100 mg capsule 04-18 00:00: 00 No 1mg Macrobid 100 mg capsule 04-18 00:00: 00 No 1mg Macrobid 100 mg capsule 04-18 00:00: 00 No 1mg Macrobid 100 mg capsule 04-18 00:00: 00 No 1mg hydrochloro thiazide 12.5 mg tablet 17 00:00: 00 No 1mg hydrochloro thiazide 12.5 mg tablet 17 00:00: 00 No 1mg hydrochloro thiazide 12.5 mg tablet 2021-0 4-17 00:00: 00 No 1mg hydrochloro thiazide 12.5 mg tablet 4-17 00:00: 00 No 1mg Levemir U-100 Insulin 100 unit/mL subcutaneou s solution 4-10 00:00: 00 No 30unit/ mL Novolin R Regular U-100 Insulin 100 unit/mL injection solution 4-10 00:00: 00 No 1unit/m L losartan 100 mg tablet 4- 00:00: 00 No 1mg Levemir U-100 Insulin 100 unit/mL subcutaneou s solution 4- 00:00: 00 No 30unit/ mL Novolin R Regular U-100 Insulin 100 unit/mL injection solution 4- 00:00: 00 No 1unit/m L losartan 100 mg tablet 4- 00:00: 00 No 1mg Levemir U-100 Insulin 100 unit/mL subcutaneou s solution 4- 00:00: 00 No 30unit/ mL Novolin R Regular U-100 Insulin 100 unit/mL injection solution 4- 00:00: 00 No 1unit/m L losartan 100 mg tablet 4- 00:00: 00 No 1mg Levemir U-100 Insulin 100 unit/mL subcutaneou s solution 4- 00:00: 00 No 30unit/ mL Novolin R Regular U-100 Insulin 100 unit/mL injection solution 4- 00:00: 00 No 1unit/m L losartan 100 mg tablet 4- 00:00: 00 No 1mg losartan 50 mg tablet 0 3-24 00:00: 00 No 1mg diclofenac sodium 75 mg tablet,gaby yed release 0 3-24 00:00: 00 No 1mg cyclobenzap rine 5 mg tablet 0 3-24 00:00: 00 No 12mg losartan 50 mg tablet 0 3-24 00:00: 00 No 1mg diclofenac sodium 75 mg tablet,gaby yed release 0 3-24 00:00: 00 No 1mg cyclobenzap rine 5 mg tablet 01-26 00:00: 00 No 12mg losartan 50 mg tablet 01-26 00:00: 00 No 1mg diclofenac sodium 75 mg tablet,gaby yed release 01-26 00:00: 00 No 1mg cyclobenzap rine 5 mg tablet 01-26 00:00: 00 No 12mg losartan 50 mg tablet 01-26 00:00: 00 No 1mg diclofenac sodium 75 mg tablet,gaby yed release 01-26 00:00: 00 No 1mg cyclobenzap rine 5 mg tablet 01-26 00:00: 00 No 12mg diclofenac sodium 75 mg tablet,gaby yed release 04-27 00:00: 00 No 1mg diclofenac sodium 75 mg tablet,gaby yed release 04-27 00:00: 00 No 1mg diclofenac sodium 75 mg tablet,gaby yed release 04-27 00:00: 00 No 1mg diclofenac sodium 75 mg tablet,gaby yed release 04-27 00:00: 00 No 1mg Levemir U-100 Insulin 100 unit/mL subcutaneou s solution 04-24 00:00: 00 No 20unit/ mL Levemir U-100 Insulin 100 unit/mL subcutaneou s solution 04-24 00:00: 00 No 20unit/ mL Novolin R Regular U-100 Insulin 100 unit/mL injection solution 04-24 00:00: 00 No 1unit/m L losartan 50 mg tablet 04-24 00:00: 00 No 1mg Bactrim DS 800 mg-160 mg tablet 04-24 00:00: 00 No 1mg Nexium 40 mg capsule,del ayed release 04-24 00:00: 00 No 1mg Novolin R Regular U-100 Insulin 100 unit/mL injection solution 04-24 00:00: 00 No 1unit/m L losartan 50 mg tablet 04-24 00:00: 00 No 1mg Bactrim DS 800 mg-160 mg tablet 04-24 00:00: 00 No 1mg Nexium 40 mg capsule,del ayed release 04-24 00:00: 00 No 1mg Levemir U-100 Insulin 100 unit/mL subcutaneou s solution 04-24 00:00: 00 No 20unit/ mL Novolin R Regular U-100 Insulin 100 unit/mL injection solution 04-24 00:00: 00 No 1unit/m L losartan 50 mg tablet 04-24 00:00: 00 No 1mg Bactrim DS 800 mg-160 mg tablet 04-24 00:00: 00 No 1mg Nexium 40 mg capsule,del ayed release 04-24 00:00: 00 No 1mg Levemir U-100 Insulin 100 unit/mL subcutaneou s solution 04-24 00:00: 00 No 20unit/ mL Novolin R Regular U-100 Insulin 100 unit/mL injection solution 04-24 00:00: 00 No 1unit/m L losartan 50 mg tablet 04-24 00:00: 00 No 1mg Bactrim DS 800 mg-160 mg tablet 04-24 00:00: 00 No 1mg Nexium 40 mg capsule,del ayed release 04-24 00:00: 00 No 1mg ProAir HFA 90 mcg/actuati on aerosol inhaler 2018-11 00:00: 00 No 12mcg/a ctuatio n Novolin R Regular U-100 Insulin 100 unit/mL injection solution 2018-11 00:00: 00 No 1unit/m L Augmentin 875 mg-125 mg tablet 2018-11 00:00: 00 No 1mg ProAir HFA 90 mcg/actuati on aerosol inhaler 2018-11 00:00: 00 No 12mcg/a ctuatio n Novolin R Regular U-100 Insulin 100 unit/mL injection solution 2018-11 00:00: 00 No 1unit/m L Augmentin 875 mg-125 mg tablet 2018-11 00:00: 00 No 1mg ProAir HFA 90 mcg/actuati on aerosol inhaler 2018-11 00:00: 00 No 12mcg/a ctuatio n Novolin R Regular U-100 Insulin 100 unit/mL injection solution 2018-11 00:00: 00 No 1unit/m L Augmentin 875 mg-125 mg tablet 2018-11 00:00: 00 No 1mg ProAir HFA 90 mcg/actuati on aerosol inhaler 2018-11 00:00: 00 No 12mcg/a ctuatio n Novolin R Regular U-100 Insulin 100 unit/mL injection solution 2018-11 00:00: 00 No 1unit/m L Augmentin 875 mg-125 mg tablet 2018-11 00:00: 00 No 1mg Levemir U-100 Insulin 100 unit/mL subcutaneou s solution 2018-11 0 00:00: 00 No 20unit/ mL amitriptyli ne 50 mg tablet 2018-11 0 00:00: 00 No 1mg Levemir U-100 Insulin 100 unit/mL subcutaneou s solution 2018-11 0 00:00: 00 No 20unit/ mL amitriptyli ne 50 mg tablet 2018-11 0 00:00: 00 No 1mg Levemir U-100 Insulin 100 unit/mL subcutaneou s solution 2018-11 0 00:00: 00 No 20unit/ mL amitriptyli ne 50 mg tablet 2018-11 0 00:00: 00 No 1mg Levemir U-100 Insulin 100 unit/mL subcutaneou s solution 2018-11 0 00:00: 00 No 20unit/ mL amitriptyli ne 50 mg tablet 2018-11 0 00:00: 00 No 1mg Novolin 70/30 U-100 Insulin 100 unit/mL subcutaneou s suspension 07-09 00:00: 00 No 20unit/ mL (70-30) Cipro 500 mg tablet 07-09 00:00: 00 No 1mg Novolin 70/30 U-100 Insulin 100 unit/mL subcutaneou s suspension 07-09 00:00: 00 No 20unit/ mL (70-30) Cipro 500 mg tablet 07-09 00:00: 00 No 1mg Novolin 70/30 U-100 Insulin 100 unit/mL subcutaneou s suspension 07-09 00:00: 00 No 20unit/ mL (70-30) Cipro 500 mg tablet 07-09 00:00: 00 No 1mg Novolin 70/30 U-100 Insulin 100 unit/mL subcutaneou s suspension 07-09 00:00: 00 No 20unit/ mL (70-30) Cipro 500 mg tablet 07-09 00:00: 00 No 1mg amitriptyli ne 50 mg tablet 05-07 00:00: 00 No 1mg amitriptyli ne 50 mg tablet 05-07 00:00: 00 No 1mg amitriptyli ne 50 mg tablet 05-07 00:00: 00 No 1mg amitriptyli ne 50 mg tablet 05-07 00:00: 00 No 1mg Novolin 70/30 U-100 Insulin 100 unit/mL subcutaneou s suspension 04-23 00:00: 00 No 15unit/ mL (70-30) Nexium 24HR 20 mg tablet,gaby yed release 04-23 00:00: 00 No 1mg lisinopril 20 mg tablet 04-23 00:00: 00 No 1mg gabapentin 100 mg capsule 04-23 00:00: 00 No 12mg Novolin 70/30 U-100 Insulin 100 unit/mL subcutaneou s suspension 04-23 00:00: 00 No 15unit/ mL (70-30) Nexium 24HR 20 mg tablet,gaby yed release 04-23 00:00: 00 No 1mg lisinopril 20 mg tablet 04-23 00:00: 00 No 1mg gabapentin 100 mg capsule 04-23 00:00: 00 No 12mg Novolin 70/30 U-100 Insulin 100 unit/mL subcutaneou s suspension 04-23 00:00: 00 No 15unit/ mL (70-30) Nexium 24HR 20 mg tablet,gaby yed release 04-23 00:00: 00 No 1mg lisinopril 20 mg tablet 04-23 00:00: 00 No 1mg gabapentin 100 mg capsule 04-23 00:00: 00 No 12mg Novolin 70/30 U-100 Insulin 100 unit/mL subcutaneou s suspension 04-23 00:00: 00 No 15unit/ mL (70-30) Nexium 24HR 20 mg tablet,gaby yed release 04-23 00:00: 00 No 1mg lisinopril 20 mg tablet 04-23 00:00: 00 No 1mg gabapentin 100 mg capsule 04-23 00:00: 00 No 12mg ibuprofen 600 mg tablet 04-16 00:00: 00 Yes 600mg Take 1 tablet by mouth every 6 (six) hours as needed for Pain (scale 4-6). [facility] ibuprofen 600 mg tablet 04-16 00:00: 00 Yes 600mg Take 1 tablet by mouth every 6 (six) hours as needed for Pain (scale 4-6). [facility] ibuprofen 600 mg tablet 04-16 00:00: 00 Yes 600mg Take 1 tablet by mouth every 6 (six) hours as needed for Pain (scale 4-6). [facility] Novolin 70/30 U-100 Insulin 100 unit/mL subcutaneou s suspension 01-07 00:00: 00 No 15unit/ mL (70-30) Novolin 70/30 U-100 Insulin 100 unit/mL subcutaneou s suspension 01-07 00:00: 00 No unit/mL (70-30) Novolin 70/30 U-100 Insulin 100 unit/mL subcutaneou s suspension 01-07 00:00: 00 No 15unit/ mL (70-30) Novolin 70/30 U-100 Insulin 100 unit/mL subcutaneou s suspension 01-07 00:00: 00 No unit/mL (70-30) Novolin 70/30 U-100 Insulin 100 unit/mL subcutaneou s suspension 01-07 00:00: 00 No 15unit/ mL (70-30) Novolin 70/30 U-100 Insulin 100 unit/mL subcutaneou s suspension 01-07 00:00: 00 No unit/mL (70-30) Novolin 70/30 U-100 Insulin 100 unit/mL subcutaneou s suspension 01-07 00:00: 00 No 15unit/ mL (70-30) Novolin 70/30 U-100 Insulin 100 unit/mL subcutaneou s suspension 01-07 00:00: 00 No unit/mL (70-30) Novolin 70/30 U-100 Insulin 100 unit/mL subcutaneou s suspension 11-13 00:00: 00 No unit/mL (70-30) Novolin 70/30 U-100 Insulin 100 unit/mL subcutaneou s suspension 11-13 00:00: 00 No unit/mL (70-30) Novolin 70/30 U-100 Insulin 100 unit/mL subcutaneou s suspension 11-13 00:00: 00 No unit/mL (70-30) Novolin 70/30 U-100 Insulin 100 unit/mL subcutaneou s suspension 11-13 00:00: 00 No unit/mL (70-30) lovastatin 20 mg tablet 2016-11 00:00: 00 No 1mg lovastatin 20 mg tablet 2016-11 00:00: 00 No 1mg lovastatin 20 mg tablet 2016-11 00:00: 00 No 1mg lovastatin 20 mg tablet 2016-11 00:00: 00 No 1mg lisinopril 20 mg tablet 2016-11 00:00: 00 No 1mg lisinopril 20 mg tablet 2016-11 00:00: 00 No 1mg lisinopril 20 mg tablet 2016-11 00:00: 00 No 1mg lisinopril 20 mg tablet 2016-11 00:00: 00 No 1mg Novolin 70/30 U-100 Insulin 100 unit/mL subcutaneou s suspension 05-17 00:00: 00 No unit/mL (70-30) Novolin 70/30 U-100 Insulin 100 unit/mL subcutaneou s suspension 05-17 00:00: 00 No unit/mL (70-30) Novolin 70/30 U-100 Insulin 100 unit/mL subcutaneou s suspension 05-17 00:00: 00 No unit/mL (70-30) Novolin 70/30 U-100 Insulin 100 unit/mL subcutaneou s suspension 05-17 00:00: 00 No unit/mL (70-30) Novolin R Regular U-100 Insulin 100 unit/mL injection solution 05-04 00:00: 00 No unit/mL Levemir 100 unit/mL subcutaneou s solution 05-04 00:00: 00 No 10unit/ mL Novolin R 100 unit/mL injection solution 05-04 00:00: 00 No unit/mL Novolin R Regular U-100 Insulin 100 unit/mL injection solution 05-04 00:00: 00 No unit/mL Levemir 100 unit/mL subcutaneou s solution 05-04 00:00: 00 No 10unit/ mL Novolin R 100 unit/mL injection solution 05-04 00:00: 00 No unit/mL Novolin R Regular U-100 Insulin 100 unit/mL injection solution 05-04 00:00: 00 No unit/mL Levemir 100 unit/mL subcutaneou s solution 05-04 00:00: 00 No 10unit/ mL Novolin R 100 unit/mL injection solution 05-04 00:00: 00 No unit/mL Novolin R Regular U-100 Insulin 100 unit/mL injection solution 05-04 00:00: 00 No unit/mL Levemir 100 unit/mL subcutaneou s solution 05-04 00:00: 00 No 10unit/ mL Novolin R 100 unit/mL injection solution 05-04 00:00: 00 No unit/mL lovastatin 20 mg tablet 04-29 00:00: 00 No 1mg lovastatin 20 mg tablet 04-29 00:00: 00 No 1mg lovastatin 20 mg tablet 04-29 00:00: 00 No 1mg lovastatin 20 mg tablet 04-29 00:00: 00 No 1mg lovastatin 20 mg tablet 04-29 00:00: 00 No 1mg lovastatin 20 mg tablet 04-29 00:00: 00 No 1mg lovastatin 20 mg tablet 04-29 00:00: 00 No 1mg lovastatin 20 mg tablet 04-29 00:00: 00 No 1mg lisinopril 20 mg tablet 04-27 00:00: 00 No 1mg hydrochloro thiazide 12.5 mg tablet 04-27 00:00: 00 No 1mg lisinopril 20 mg tablet 04-27 00:00: 00 No 1mg lisinopril 20 mg tablet 04-27 00:00: 00 No 1mg hydrochloro thiazide 12.5 mg tablet 04-27 00:00: 00 No 1mg hydrochloro thiazide 12.5 mg tablet 04-27 00:00: 00 No 1mg lisinopril 20 mg tablet 04-27 00:00: 00 No 1mg hydrochloro thiazide 12.5 mg tablet 04-27 00:00: 00 No 1mg Novolin 70/30 100 unit/mL subcutaneou s suspension 04-26 00:00: 00 No 15unit/ mL (70-30) Novolin 70/30 100 unit/mL subcutaneou s suspension 04-26 00:00: 00 No 15unit/ mL (70-30) Novolin 70/30 100 unit/mL subcutaneou s suspension 04-26 00:00: 00 No 15unit/ mL (70-30) Novolin 70/30 100 unit/mL subcutaneou s suspension 04-26 00:00: 00 No 15unit/ mL (70-30) omeprazole (PRILOSEC) 20 mg capsule 05-21 00:00: 00 Yes 20mg Take 1 [facility]SEC[facility] 20 mg capsule 05-21 00:00: 00 Yes 20mg Take 1 capsule by mouth daily[facility] omeprazole (PRILOSEC) 20 mg capsule 05-21 00:00: 00 Yes 20mg Take 1 capsule by mouth daily. [facility] Vital Signs Vital Name Observation Time Observation Value Comments S ource Systolic blood pressure 2021-11-14 17:34:00 170 mm[Hg] [facility] Diastolic blood pressure 2021-11-14 17:34:00 80 mm[Hg] [facility] Heart rate 2021-11-14 17:34:00 80 /min [facility] Body temperature 2021-11-14 17:32:00 36.83 Sabiha [facility] Respiratory rate 2021-11-14 17:32:00 20 /min [facility] Body height 2021-11-14 17:32:00 157.5 cm [facility] Body weight 2021-11-14 17:32:00 62.596 kg [facility] BMI 2021-11-14 17:32:00 25.24 kg/m2 [facility] Oxygen saturation in Arterial blood by Pulse oximetry 2021-11-14 17:32:00 98 /min [facility] BP Systolic 2022-11-10 16:39:00 146 mm[Hg] BP [...] 14:32:00 110.00 /min Respiratory Rate 2021-10-27 14:32:00 Respiratory Rate 2021-05-20 13:39:00 BP Systolic 2021-05-20 13:39:00 108 mm[Hg] BP Diastolic 2021-05-20 13:39:00 49 mm[Hg] Weight Measured 2021-05-20 13:39:00 145.40 pounds Height Measured 2021-05-20 13:39:00 62.60 inches Body Temperature 2021-05-20 13:39:00 98.40 degrees Heart Rate 2021-05-20 13:39:00 102.00 /min BP Systolic 2021-04-15 10:15:00 129 mm[Hg] BP Diastolic 2021-04-15 10:15:00 67 mm[Hg] Weight Measured 2021-04-15 10:15:00 136.80 pounds Height Measured 2021-04-15 10:15:00 62.60 inches Body Temperature 2021-04-15 10:15:00 98.40 degrees Heart Rate 2021-04-15 10:15:00 107.00 /min Respiratory Rate 2021-04-15 10:15:00 Procedures Procedure Date / Time Performed Performing Clinicia n Source REFERRAL- REQUEST/RESPONSE 2022-11-20 06:01:00 Doctor Unassigned, [place] [facility] [address] Ecg Routine Ecg W/least 12 Lds W/i r 2017-04-27 00:00:00 Plan of Care Planned Activity Planned Date Details Comments Source Goal Plan of Care Note [code = 51618-1] Goal Plan of Care Note [code = 80410-8] Goal Plan of Care Note [code = 08410-9] Goal Plan of Care Note [code = 78258-9] Goal Plan of Care Note [code = 12470-7] Goal Plan of Care Note [code = 30777-3] Goal Plan of Care Note [code = 98346-9] Goal Plan of Care Note [code = 48334-5] Goal Plan of Care Note [code = 56785-1] Goal Plan of Care Note [code = 71936-9] Goal Plan of Care Note [code = 13718-3] Goal Plan of Care Note [code = 90688-1] Goal Plan of Care Note [code = 36139-7] Goal Plan of Care Note [code = 67571-3] Goal Plan of Care Note [code = 85325-4] Goal Plan of Care Note [code = 09017-6] Goal Plan of Care Note [code = 53454-3] Goal Plan of Care Note [code = 60635-4] Goal Plan of Care Note [code = 28680-4] Goal Plan of Care Note [code = 77034-5] Goal Plan of Care Note [code = 40157-2] Goal Plan of Care Note [code = 00532-3] Goal Plan of Care Note [code = 43016-0] Goal Plan of Care Note [code = 98824-3] Goal Plan of Care Note [code = 00910-2] Goal Plan of Care Note [code = 23235-1] Goal Plan of Care Note [code = 20871-4] Goal Plan of Care Note [code = 74153-1] Goal Plan of Care Note [code = 03285-8] Goal Plan of Care Note [code = 94832-4] Goal Plan of Care Note [code = 78021-0] Goal Plan of Care Note [code = 21542-3] Goal Plan of Care Note [code = 09221-8] Goal Plan of Care Note [code = 21120-9] Goal Plan of Care Note [code = 17542-0] Goal Plan of Care Note [code = 67663-8] Goal Plan of Care Note [code = 52559-6] Goal Plan of Care Note [code = 88918-3] Goal Plan of Care Note [code = 95181-7] Goal Plan of Care Note [code = 18204-2] Goal Plan of Care Note [code = 39168-0] Goal Plan of Care Note [code = 27244-8] Goal Plan of Care Note [code = 80000-0] Goal Plan of Care Note [code = 55994-2] Goal Plan of Care Note [code = 70274-1] Goal Plan of Care Note [code = 74636-0] Goal Plan of Care Note [code = 08271-8] Goal Plan of Care Note [code = 96501-6] Goal Plan of Care Note [code = 57335-2] Goal Plan of Care Note [code = 48558-6] Goal Plan of Care Note [code = 97195-5] Goal Plan of Care Note [code = 57149-8] Goal Plan of Care Note [code = 35255-8] Goal Plan of Care Note [code = 14553-3] Goal Plan of Care Note [code = 95411-4] Goal Plan of Care Note [code = 94611-4] Goal Plan of Care Note [code = 27874-6] Goal Plan of Care Note [code = 59011-8] Goal Plan of Care Note [code = 63949-6] Goal Plan of Care Note [code = 01409-1] Goal Plan of Care Note [code = 51513-9] Goal Plan of Care Note [code = 55664-4] Goal Plan of Care Note [code = 40871-1] Goal Plan of Care Note [code = 95764-8] Goal Plan of Care Note [code = 67071-1] Goal Plan of Care Note [code = 11157-9] Goal Plan of Care Note [code = 62305-1] Goal Plan of Care Note [code = 27232-3] Goal Plan of Care Note [code = 60819-3] Goal Plan of Care Note [code = 45948-5] Goal Plan of Care Note [code = 46175-5] Goal Plan of Care Note [code = 72705-8] Goal Plan of Care Note [code = 84488-5] Goal Plan of Care Note [code = 39888-4] Goal Plan of Care Note [code = 37717-9] Goal Plan of Care Note [code = 14896-6] Goal Plan of Care Note [code = 19596-8] Goal Plan of Care Note [code = 14548-6] Goal Plan of Care Note [code = 24238-0] Goal Plan of Care Note [code = 30181-6] Goal Plan of Care Note [code = 52870-5] Goal Plan of Care Note [code = 33163-5] Goal Plan of Care Note [code = 00589-8] Goal Plan of Care Note [code = 98239-5] Goal Plan of Care Note [code = 44624-4] Goal Plan of Care Note [code = 54699-3] Goal Plan of Care Note [code = 65284-1] Goal Plan of Care Note [code = 78743-6] Goal Plan of Care Note [code = 40563-7] Goal Plan of Care Note [code = 30250-7] Goal Plan of Care Note [code = 92649-1] Goal Plan of Care Note [code = 86560-8] Goal Plan of Care Note [code = 22129-0] Goal Plan of Care Note [code = 79769-5] Goal Plan of Care Note [code = 63468-4] Goal Plan of Care Note [code = 26555-8] Goal Plan of Care Note [code = 33839-9] Goal Plan of Care Note [code = 76230-6] Goal Plan of Care Note [code = 16615-9] Goal Plan of Care Note [code = 21309-3] Goal Plan of Care Note [code = 63480-8] Goal Plan of Care Note [code = 42883-1] Goal Plan of Care Note [code = 90590-3] Goal Plan of Care Note [code = 07273-2] Goal Plan of Care Note [code = 18289-8] Goal Plan of Care Note [code = 91909-4] Goal Plan of Care Note [code = 61540-3] Goal Plan of Care Note [code = 66427-4] Goal Plan of Care Note [code = 68700-3] Goal Plan of Care Note [code = 46737-7] Goal Plan of Care Note [code = 02312-7] Goal Plan of Care Note [code = 69436-5] Goal Plan of Care Note [code = 18579-9] Goal Plan of Care Note [code = 66315-4] Goal Plan of Care Note [code = 66653-0] Goal Plan of Care Note [code = 85999-3] Goal Plan of Care Note [code = 81400-3] Goal Plan of Care Note [code = 57897-5] Goal Plan of Care Note [code = 05318-4] Goal Plan of Care Note [code = 47373-3] Goal Plan of Care Note [code = 06187-3] Goal Plan of Care Note [code = 94750-5] Goal Plan of Care Note [code = 42915-1] Goal Plan of Care Note [code = 50885-1] Goal Plan of Care Note [code = 16796-8] Goal Plan of Care Note [code = 06734-7] Goal Plan of Care Note [code = 80081-7] Goal Plan of Care Note [code = 49702-5] Goal Plan of Care Note [code = 75562-4] Goal Plan of Care Note [code = 81497-2] Goal Plan of Care Note [code = 45894-3] Goal Plan of Care Note [code = 41083-8] Goal Plan of Care Note [code = 72008-6] Goal Plan of Care Note [code = 87292-7] Goal Plan of Care Note [code = 02921-8] Goal Plan of Care Note [code = 07040-5] Goal Plan of Care Note [code = 42311-7] Goal Plan of Care Note [code = 42041-7] Goal Plan of Care Note [code = 18085-1] Goal Plan of Care Note [code = 83882-7] Goal Plan of Care Note [code = 12656-1] Goal Plan of Care Note [code = 65344-7] Goal Plan of Care Note [code = 82842-5] Goal Plan of Care Note [code = 24008-6] Goal Plan of Care Note [code = 22332-1] Goal Plan of Care Note [code = 72209-8] Goal Plan of Care Note [code = 13133-1] Goal Plan of Care Note [code = 68987-9] Goal Plan of Care Note [code = 91704-5] Goal Plan of Care Note [code = 40200-8] Goal Plan of Care Note [code = 60082-8] Goal Plan of Care Note [code = 34441-8] Goal Plan of Care Note [code = 07278-8] Encounters Start Date/Time End Date/Time Encounter Type Admission Type Attending [facility] Facility Care Department Encounter ID Source 2023-07-05 14:50:31 2023-07-05 14:50:31 Outpatient [facility] [id number] Maurice Rodrigez 2023-04-14 12:19:21 2023-04-14 12:19:21 Outpatient [facility] [id number] Maurice Rodrigez 2022-11-24 00:00:00 2022-11-24 00:00:00 Patient Secure Msg Doctor Unassigned, [place] [facility] 1.2.840.114 350.1.13.10 4.2.7.2.686 [id number] [facility] 2022-11-20 15:43:47 2022-11-20 15:43:47 Outpatient [facility] [id number] Maurice Rodrigez 2022-11-20 00:00:00 2022-11-20 00:00:00 Orders Only Doctor Unassigned, [place] [facility] 1.2.840.114 350.1.13.10 4.2.7.2.686 [id number] [facility] 2022-11-10 16:30:38 2022-11-10 16:30:38 Outpatient [facility] [id number] Maurice Rodrigez 2022-11-10 00:00:00 2022-11-10 00:00:00 Outpatient Visit [id number] -810f-d4a [id number] [id number] x4j-2321-4 10f-d4abbd a4bbbd 2022-09-14 17:09:48 2022-09-14 17:09:48 Outpatient [facility] [id number] Maurice Rodrigez 2022-09-14 00:00:00 2022-09-14 00:00:00 Outpatient Visit [id number]- [id number] -47a4-43c [id number] 943-492d-9 7r7-11a1s1 [id number] 2022-08-18 14:24:12 2022-08-18 14:24:12 Outpatient [facility] [id number] Maurice Rodrigez 2022-08-18 00:00:00 2022-08-18 00:00:00 Outpatient Visit [id number] an2f-[id number] -sk19-7s5 [id number] f9o-7enx-o f94-5w44q4 6b91e7 2022-06-26 00:00:00 2022-06-26 00:00:00 Outpatient Visit [id number] -x5t7-068 [id number] 065-4527-a [id number] 35744m 2021-12-15 11:15:00 2021-12-15 11:15:00 Outpatient R HEATHER HOUSTON [facility] [id number] [facility] 2021-11-14 10:45:00 2021-11-14 11:25:15 Outpatient R HEATHER HOUST[facility] [id number] [facility] 2021-11-14 10:45:00 2021-11-14 11:25:15 Office Visit Heather [place] [facility] 1.840.114 350.1.13.10 4.2.7.2.686 [id number] [facility] 2021-11-14 10:45:00 2021-11-14 11:25:15 Outpatient R HEATHER HOUSTON [facility] [id number] [facility] 2021-11-14 00:00:00 2021-11-14 00:00:00 Orders Only Doctor Unassigned, [place] [facility] 1.840.114 350.1.13.10 4.2.7.2.686 [id number] [facility] 2021-11-07 00:00:00 2021-11-07 00:00:00 Transition of Care Felipa Monson 1.2.840.114 350.1.13.10 4.2.7.2.686 [id number] [facility] 2021-11-02 15:28:00 2021-11-05 14:30:00 Inpatient X LESLEY GUZMAN [facility] [id number] [facility] 2021-11-02 15:28:00 2021-11-05 14:30:00 Hospital Encounter Serenity Doe Yajaira Shepherd, SandeepGuzman Contreras [facility] 1.2.840.114 350.1.13.10 4.2.7.2.686 [id number] [facility] 2019-07-01 20:04:11 2019-07-01 21:35:00 Emergency Wiliam Gutierres [facility] 1.2.840.114 350.1.13.10 4.2.7.2.686 [id number] 2019-07-01 20:04:11 2019-07-01 21:35:00 Emergency Wiliam Gutierres [facility] 1.2.840.114 350.1.13.10 4.2.7.2.686 [id number] [facility] 2013-10-29 15:36:00 2013-10-29 23:10:00 Emergency FLYNN DEWEY [facility] [id number] [facility] Results Test Description Test Time Test Comments Results Result Co mments Source COMPREHENSIVE METABOLIC [id number] 04:57:04* Test Item Value Reference Range Interpretation Comme nts GLUCOSE (test code = 2217) 184 MG/DL 70-99 H BUN (test code = 2208) 66 MG/DL 6-20 H CREATININE (test code = 2214) 1.87 MG/DL 0.60-1.30 H eGFR (2020 CKD-EPI) (test code = 51204) 31 ML/MIN/1.73 >60 L CALC BUN/CREAT (test code = 2234) 35 RATIO 6-28 H SODIUM (test code = 2230) 138 MEQ/L 133-146 POTASSIUM (test code = 2227) 5.0 MEQ/L 3.5-5.4 CHLORIDE (test code = 2214) 100 MEQ/L 95-107 CARBON DIOXIDE (test code = 2205) 20 MEQ/L 19-31 CALCIUM (test code = 2208) 11.0 MG/DL 8.5-10.5 H PROTEIN, TOTAL (test code = 2228) 7.7 G/DL 6.1-8.3 ALBUMIN (test code = 2200) 4.7 G/DL 3.5-5.2 CALC GLOBULIN (test code = 2239) 3.0 G/DL 1.9-3.7 CALC A/G RATIO (test code = 2233) 1.6 RATIO 1.0-2.6 BILIRUBIN, TOTAL (test code = 2206) <0.2 MG/DL See_Comment [Automated me ssage] The system which generated this result transmitted reference range: <=1.2. The reference range was not used to interpret this result as normal/abnormal. ALKALINE PHOSPHATASE (test code = 2203) 137 U/L 40-136 H AST (test code = 2217) 17 U/L 9-40 ALT (test code = 9) 21 U/L 5-40 UNLESS OTHERWISE INDICATED, ALL TESTING PERFORMED [facility] [address] [place] [address] STENCIL MACHINE OPERATOR: MARGI OCHOA M.D. CLIA NUMBER [id number] [facility] [place]. [id number] HEMOGLOBIN [id number] 03:03:22* Test Item Value Reference Range Interpretation Comme nts HEMOGLOBIN A1c (test code = 10435) 10.6 % 4.2-5.6 H [employer] GUIDELINES FOR HGB A1C: PREDIABETES/INCREASED RISK . . . . . . . 5.7-6.4% DIAGNOSIS OF DIABETES . . . . . . . . . >=6.5% WITH CONFIRMATION OR APPROPRIATE SYMPTOMS NOTE: ASSAY MAY BE AFFECTED BY HEMOGLOBINOPATHIES (SICKLE CELL ANEMIA, S-C DISEASE, OTHERS) OR ARTIFICIALLY LOWERED BY DECREASED RED CELL SURVIVAL (HEMOLYTIC ANEMIAS, BLOOD LOSS, ETC.). CONSIDER ALTERNATE TESTING OR LABORATORY CONSULTATION. HEMOGLOBIN [id number] 05:15:03* Test Item Value Reference Range Interpretation Comme [facility] HEMOGLOBIN A1c (test code = 24081) 13.9 % 4.2-5.6 H [employer] GUIDELINES FOR HGB A1C: PREDIABETES/INCREASED RISK . . . . . . . 5.7-6.4% DIAGNOSIS OF DIABETES . . . . . . . . . >=6.5% WITH CONFIRMATION OR APPROPRIATE SYMPTOMS NOTE: ASSAY MAY BE AFFECTED BY HEMOGLOBINOPATHIES (SICKLE CELL ANEMIA, S-C DISEASE, OTHERS) OR ARTIFICIALLY LOWERED BY DECREASED RED CELL SURVIVAL (HEMOLYTIC ANEMIAS, BLOOD LOSS, ETC.). CONSIDER ALTERNATE TESTING OR LABORATORY CONSULTATION. UNLESS OTHERWISE INDICATED, ALL TESTING PERFORMED [facility] [address] [place] [address] STENCIL MACHINE OPERATOR: MARGI OCHOA M.D. [place] NUMBER [id number] [facility] [place]. [id number] HEMOGLOBIN [id number] 00:00:00* Test Item Value Reference Range Interpretation Comme [facility] HEMOGLOBIN A1c (test code = 42130) 13.9 % HEMOGLOBIN [id number] 00:00:00* Test Item Value Reference Range Interpretation Comme [facility] HEMOGLOBIN A1c (test code = 11521) 13.9 % HEMOGLOBIN [id number] 00:00:00* Test Item Value Reference Range Interpretation Comme [facility] HEMOGLOBIN A1c (test code = 67780) 13.9 % HEMOGLOBIN [id number] 00:00:00* Test Item Value Reference Range Interpretation Comme [facility] HEMOGLOBIN A1c (test code = 68441) 13.9 % HEMOGLOBIN [id number] 00:00:00* Test Item Value Reference Range Interpretation Comme [facility] HEMOGLOBIN A1c (test code = 68036) 13.9 % HEMOGLOBIN [id number] 00:00:00* Test Item Value Reference Range Interpretation Comme [facility] HEMOGLOBIN A1c (test code = 26222) 13.9 % COMPREHENSIVE METABOLIC [id number] 06:03:34* Test Item Value Reference Range Interpretation Comme nts GLUCOSE (test code = 2217) 72 MG/DL 70-99 BUN (test code = 2208) 45 MG/DL 6-20 H CREATININE (test code = 2213) 1.24 MG/DL 0.60-1.30 eGFR (2020 CKD-EPI) (test code = ) 51 ML/MIN/1.73 >60 L CALC BUN/CREAT (test code = 2234) 36 RATIO 6-28 H SODIUM (test code = 2230) 140 MEQ/L 133-146 POTASSIUM (test code = 2227) 4.5 MEQ/L 3.5-5.4 CHLORIDE (test code = 2214) 104 MEQ/L 95-107 CARBON DIOXIDE (test code = 2205) 24 MEQ/L 19-31 CALCIUM (test code = 2208) 10.2 MG/DL 8.5-10.5 PROTEIN, TOTAL (test code = 2228) 7.0 G/DL 6.1-8.3 ALBUMIN (test code = 2200) 4.2 G/DL 3.5-5.2 CALC GLOBULIN (test code = 2239) 2.8 G/DL 1.9-3.7 CALC A/G RATIO (test code = 2233) 1.5 RATIO 1.0-2.6 BILIRUBIN, TOTAL (test code = 2206) <0.2 MG/DL See_Comment [Automated me ssage] The system which generated this result transmitted reference range: <=1.2. The reference range was not used to interpret this result as normal/abnormal. ALKALINE PHOSPHATASE (test code = 2203) 134 U/L 40-136 AST (test code = 2217) 23 U/L 9-40 ALT (test code = 2218) 19 U/L 5-40 UNLESS OTHERWISE INDICATED, ALL TESTING PERFORMED [facility] [employer] [address] [place] [address] STENCIL MACHINE OPERATOR: MARGI OCHOA M.D. CLIA NUMBER [id number] [facility] [place]. [id number] HEMOGLOBIN [id number] 05:25:13* Test Item Value Reference Range Interpretation Comme nts HEMOGLOBIN A1c (test code = 73557) 13.8 % 4.2-5.6 H [employer] GUIDELINES FOR HGB A1C: PREDIABETES/INCREASED RISK . . . . . . . 5.7-6.4% DIAGNOSIS OF DIABETES . . . . . . . . . >=6.5% WITH CONFIRMATION OR APPROPRIATE SYMPTOMS NOTE: ASSAY MAY BE AFFECTED BY HEMOGLOBINOPATHIES (SICKLE CELL ANEMIA, S-C DISEASE, OTHERS) OR ARTIFICIALLY LOWERED BY DECREASED RED CELL SURVIVAL (HEMOLYTIC ANEMIAS, BLOOD LOSS, ETC.). CONSIDER ALTERNATE TESTING OR LABORATORY CONSULTATION. HEMOGLOBIN [id number] 00:00:00* Test Item Value Reference Range Interpretation Comme nts HEMOGLOBIN A1c (test code = 88954) 13.8 % HEMOGLOBIN [id number] 00:00:00* Test Item Value Reference Range Interpretation Comme nts HEMOGLOBIN A1c (test code = 98369) 13.8 % HEMOGLOBIN [id number] 00:00:00* Test Item Value Reference Range Interpretation Comme nts HEMOGLOBIN A1c (test code = 90225) 13.8 % COMPREHENSIVE METABOLIC [id number] 00:00:00* Test Item Value Reference Range Interpretation Comme nts GLUCOSE (test code = 2217) 72 MG/DL BUN (test code = 2208) 45 MG/DL CREATININE (test code = 2214) 1.24 MG/DL eGFR (2020 CKD-EPI) (test co de = 02443) 51 ML/MIN/1.73 CALC BUN/CREAT (test code = 2235) 36 RATIO SODIUM (test code = 2231) 140 MEQ/L POTASSIUM (test code = 2228) 4.5 MEQ/L CHLORIDE (test code = 2215) 104 MEQ/L CARBON DIOXIDE (test code = 2206) 24 MEQ/L CALCIUM (test code = 2209) 10.2 MG/DL PROTEIN, TOTAL (test code = 2229) 7.0 G/DL ALBUMIN (test code = 2201) 4.2 G/DL CALC GLOBULIN (test code = 2240) 2.8 G/DL CALC A/G RATIO (test code = 2234) 1.5 RATIO BILIRUBIN, TOTAL (test code = 2207) <0.2 MG/DL ALKALINE PHOSPHATASE (test code = 2204) 134 U/L AST (test code = 2218) 23 U/L ALT (test code = 2219) 19 U/L COMPREHENSIVE METABOLIC [id number] 00:00:00* Test Item Value Reference Range Interpretation Comme nts GLUCOSE (test code = 2217) 72 MG/DL BUN (test code = 2208) 45 MG/DL CREATININE (test code = 2214) 1.24 MG/DL eGFR (2020 CKD-EPI) (test co de = 19988) 51 ML/MIN/1.73 CALC BUN/CREAT (test code = 2235) 36 RATIO SODIUM (test code = 2231) 140 MEQ/L POTASSIUM (test code = 2228) 4.5 MEQ/L CHLORIDE (test code = 2215) 104 MEQ/L CARBON DIOXIDE (test code = 2206) 24 MEQ/L CALCIUM (test code = 2209) 10.2 MG/DL PROTEIN, TOTAL (test code = 2229) 7.0 G/DL ALBUMIN (test code = 2201) 4.2 G/DL CALC GLOBULIN (test code = 2240) 2.8 G/DL CALC A/G RATIO (test code = 2234) 1.5 RATIO BILIRUBIN, TOTAL (test code = 2207) <0.2 MG/DL ALKALINE PHOSPHATASE (test code = 2204) 134 U/L AST (test code = 2218) 23 U/L ALT (test code = 2219) 19 U/L HEMOGLOBIN [id number] 00:00:00* Test Item Value Reference Range Interpretation Comme nts HEMOGLOBIN A1c (test code = 29755) 13.8 % HEMOGLOBIN [id number] 00:00:00* Test Item Value Reference Range Interpretation Comme nts HEMOGLOBIN A1c (test code = 71349) 13.8 % HEMOGLOBIN [id number] 00:00:00* Test Item Value Reference Range Interpretation Comme nts HEMOGLOBIN A1c (test code = 93870) 13.8 % COMPREHENSIVE METABOLIC [id number] 00:00:00* Test Item Value Reference Range Interpretation Comme nts GLUCOSE (test code = 7) 72 MG/DL BUN (test code = 2208) 45 MG/DL CREATININE (test code = 2214) 1.24 MG/DL eGFR (2020 CKD-EPI) (test co de = 34672) 51 ML/MIN/1.73 CALC BUN/CREAT (test code = 2235) 36 RATIO SODIUM (test code = 2231) 140 MEQ/L POTASSIUM (test code = 2228) 4.5 MEQ/L CHLORIDE (test code = 2215) 104 MEQ/L CARBON DIOXIDE (test code = 2206) 24 MEQ/L CALCIUM (test code = 2209) 10.2 MG/DL PROTEIN, TOTAL (test code = 2229) 7.0 G/DL ALBUMIN (test code = 2201) 4.2 G/DL CALC GLOBULIN (test code = 2240) 2.8 G/DL CALC A/G RATIO (test code = 2234) 1.5 RATIO BILIRUBIN, TOTAL (test code = 2207) <0.2 MG/DL ALKALINE PHOSPHATASE (test code = 2204) 134 U/L AST (test code = 2218) 23 U/L ALT (test code = 2219) 19 U/L COMPREHENSIVE METABOLIC [id number] 00:00:00* Test Item Value Reference Range Interpretation Comme nts GLUCOSE (test code = 2217) 72 MG/DL BUN (test code = 2208) 45 MG/DL CREATININE (test code = 2214) 1.24 MG/DL eGFR (2020 CKD-EPI) (test co de = 76586) 51 ML/MIN/1.73 CALC BUN/CREAT (test code = 2235) 36 RATIO SODIUM (test code = 2231) 140 MEQ/L POTASSIUM (test code = 2228) 4.5 MEQ/L CHLORIDE (test code = 2215) 104 MEQ/L CARBON DIOXIDE (test code = 2206) 24 MEQ/L CALCIUM (test code = 2209) 10.2 MG/DL PROTEIN, TOTAL (test code = 2229) 7.0 G/DL ALBUMIN (test code = 2201) 4.2 G/DL CALC GLOBULIN (test code = 2240) 2.8 G/DL CALC A/G RATIO (test code = 2234) 1.5 RATIO BILIRUBIN, TOTAL (test code = 2207) <0.2 MG/DL ALKALINE PHOSPHATASE (test code = 2204) 134 U/L AST (test code = 2218) 23 U/L ALT (test code = 2219) 19 U/L HEMOGLOBIN [id number] 00:00:00* Test Item Value Reference Range Interpretation Comme nts HEMOGLOBIN A1c (test code = 14640) 13.8 % HEMOGLOBIN [id number] 00:00:00* Test Item Value Reference Range Interpretation Comme nts HEMOGLOBIN A1c (test code = 08002) 13.8 % HEMOGLOBIN [id number] 00:00:00* Test Item Value Reference Range Interpretation Comme nts HEMOGLOBIN A1c (test code = 82455) 13.8 % COMPREHENSIVE METABOLIC [id number] 00:00:00* Test Item Value Reference Range Interpretation Comme nts GLUCOSE (test code = 2217) 72 MG/DL BUN (test code = 2208) 45 MG/DL CREATININE (test code = 2214) 1.24 MG/DL eGFR (2020 CKD-EPI) (test co de = 16458) 51 ML/MIN/1.73 CALC BUN/CREAT (test code = 2235) 36 RATIO SODIUM (test code = 2231) 140 MEQ/L POTASSIUM (test code = 2228) 4.5 MEQ/L CHLORIDE (test code = 2215) 104 MEQ/L CARBON DIOXIDE (test code = 2206) 24 MEQ/L CALCIUM (test code = 2209) 10.2 MG/DL PROTEIN, TOTAL (test code = 2229) 7.0 G/DL ALBUMIN (test code = 2201) 4.2 G/DL CALC GLOBULIN (test code = 2240) 2.8 G/DL CALC A/G RATIO (test code = 2234) 1.5 RATIO BILIRUBIN, TOTAL (test code = 2207) <0.2 MG/DL ALKALINE PHOSPHATASE (test code = 2204) 134 U/L AST (test code = 2218) 23 U/L ALT (test code = 2219) 19 U/L COMPREHENSIVE METABOLIC [id number] 00:00:00* Test Item Value Reference Range Interpretation Comme nts GLUCOSE (test code = 2217) 72 MG/DL BUN (test code = 2208) 45 MG/DL CREATININE (test code = 2214) 1.24 MG/DL eGFR (2020 CKD-EPI) (test co de = 56601) 51 ML/MIN/1.73 CALC BUN/CREAT (test code = 2235) 36 RATIO SODIUM (test code = 2231) 140 MEQ/L POTASSIUM (test code = 2228) 4.5 MEQ/L CHLORIDE (test code = 2215) 104 MEQ/L CARBON DIOXIDE (test code = 2206) 24 MEQ/L CALCIUM (test code = 2209) 10.2 MG/DL PROTEIN, TOTAL (test code = 2229) 7.0 G/DL ALBUMIN (test code = 2201) 4.2 G/DL CALC GLOBULIN (test code = 2240) 2.8 G/DL CALC A/G RATIO (test code = 2234) 1.5 RATIO BILIRUBIN, TOTAL (test code = 2207) <0.2 MG/DL ALKALINE PHOSPHATASE (test code = 2204) 134 U/L AST (test code = 2218) 23 U/L ALT (test code = 2219) 19 U/L HIV 1/2 4TH GEN, RFLX [id number] 04:37:11* Test Item Value Reference Range Interpretation Comme nts HIV 1/2 4TH GEN, RFLX CONF ( test code = 3514) NON-REACTIVE NON-REACTIVE HIV AB/AG COMBO RFLX [id number] 00:00:00* Test Item Value Reference Range Interpretation Comme nts HIV 1/2 4TH GEN, RFLX CONF ( test code = 3514) NON-REACTIVE HIV AB/AG COMBO RFLX [id number] 00:00:00* Test Item Value Reference Range Interpretation Comme nts HIV 1/2 4TH GEN, RFLX CONF ( test code = 3514) NON-REACTIVE HIV AB/AG COMBO RFLX [id number] 00:00:00* Test Item Value Reference Range Interpretation Comme nts HIV 1/2 4TH GEN, RFLX CONF ( test code = 3514) NON-REACTIVE HIV AB/AG COMBO RFLX [id number] 00:00:00* Test Item Value Reference Range Interpretation Comme nts HIV 1/2 4TH GEN, RFLX CONF ( test code = 3514) NON-REACTIVE HIV AB/AG COMBO RFLX [id number] 00:00:00* Test Item Value Reference Range Interpretation Comme nts HIV 1/2 4TH GEN, RFLX CONF ( test code = 3514) NON-REACTIVE HIV AB/AG COMBO RFLX [id number] 00:00:00* Test Item Value Reference Range Interpretation Comme nts HIV 1/2 4TH GEN, RFLX CONF ( test code = 3514) NON-REACTIVE HIV AB/AG COMBO RFLX [id number] 00:00:00* Test Item Value Reference Range Interpretation Comme nts HIV 1/2 4TH GEN, RFLX CONF ( test code = 3514) NON-REACTIVE HIV AB/AG COMBO RFLX [id number] 00:00:00* Test Item Value Reference Range Interpretation Comme nts HIV 1/2 4TH GEN, RFLX CONF ( test code = 3514) NON-REACTIVE ALBUMIN/CREATININE RATIO, URINE, [id number] 01:16:34* Test Item Value Reference Range Interpretation Comme nts CREATININE, URINE, RANDOM (test code = 2072) 82.3 MG/DL NOT ESTAB ALBUMIN, URINE, RANDOM (test code = 02284) 10.4 MG/DL NOT ESTAB CALC ALBUMIN/CREAT, RND (test code = 96904) 126 MG/G <30 H Note: Albumin/Creatinine ratio reference interval reflects ADA and NKF guidelines. LIPID [id number] 00:35:57* Test Item Value Reference Range Interpretation Comme nts CHOLESTEROL (test code = 2210) 251 MG/DL <200 H TRIGLYCERIDES (test code = 2232) 79 MG/DL <150 HDL CHOLESTEROL (test code = 2220) 103 MG/DL >39 CALC LDL CHOL (test code = 2237) 130 MG/DL <100 H NOTE: CALCULATED LDL IS BASED ON WILLIAM-MARTINEZ METHOD WHICHINCLUDES ADJUSTABLE TRIGLYCERIDE:VLDL CHOLESTEROL RATIO.THIS FACTOR VARIES BY MEASURED TRIGLYCERIDE AND NON-HDLCHOLESTEROL CONCENTRATIONS WITH INCREASED CALCULATED LDL SEENIN HIGHER TRIGLYCERIDE OR LOWER NON-HDL SPECIMENS. FOR MOREINFORMATION, SEE CLIENT ANNOUNCEMENT AT [email or web address] /[email or web address] RISK RATIO LDL/HDL (test code = 223) 1.26 RATIO <3.22 UNLESS OTHERW ISE INDICATED, ALL TESTING PERFORMED [facility] [address] [place] [id number] [employer]ENC[employer] MACHINE OPERATOR: MARGI OCHOA M.D. CLIA NUMBER [id number] [facility] [place]. [id number] COMPREHENSIVE METABOLIC [id number] 00:35:57* Test Item Value Reference Range Interpretation Comme nts GLUCOSE (test code = 2217) 56 MG/DL 70-99 L BUN (test code = 2207) 39 MG/DL 6-20 H CREATININE (test code = 2214) 1.46 MG/DL 0.60-1.30 H eGFR (2020 CKD-EPI) (test code = 62319) 42 ML/MIN/1.73 >60 L CALC BUN/CREAT (test code = 2235) 27 RATIO 6-28 SODIUM (test code = 2230) 141 MEQ/L 133-146 POTASSIUM (test code = 8) 5.1 MEQ/L 3.5-5.4 CHLORIDE (test code = 2215) 103 MEQ/L 95-107 CARBON DIOXIDE (test code = 2206) 22 MEQ/L 19-31 CALCIUM (test code = 2209) 10.2 MG/DL 8.5-10.5 PROTEIN, TOTAL (test code = 2229) 8.1 G/DL 6.1-8.3 ALBUMIN (test code = 2201) 4.7 G/DL 3.5-5.2 CALC GLOBULIN (test code = 2240) 3.4 G/DL 1.9-3.7 CALC A/G RATIO (test code = 2234) 1.4 RATIO 1.0-2.6 BILIRUBIN, TOTAL (test code = 2207) <0.2 MG/DL See_Comment [Automated me ssage] The system which generated this result transmitted reference range: <=1.2. The reference range was not used to interpret this result as normal/abnormal. ALKALINE PHOSPHATASE (test code = 2203) 186 U/L 40-136 H AST (test code = 2218) 23 U/L 9-40 ALT (test code = 2219) 24 U/L 5-40 COMPREHENSIVE METABOLIC [id number] 00:00:00* Test Item Value Reference Range Interpretation Comme nts GLUCOSE (test code = 2217) 56 MG/DL BUN (test code = 8) 39 MG/DL CREATININE (test code = 2214) 1.46 MG/DL eGFR (2020 CKD-EPI) (test co de = 77012) 42 ML/MIN/1.73 CALC BUN/CREAT (test code = 2235) 27 RATIO SODIUM (test code = 2231) 141 MEQ/L POTASSIUM (test code = 2228) 5.1 MEQ/L CHLORIDE (test code = 2215) 103 MEQ/L CARBON DIOXIDE (test code = 2206) 22 MEQ/L CALCIUM (test code = 2209) 10.2 MG/DL PROTEIN, TOTAL (test code = 2229) 8.1 G/DL ALBUMIN (test code = 2201) 4.7 G/DL CALC GLOBULIN (test code = 2240) 3.4 G/DL CALC A/G RATIO (test code = 2234) 1.4 RATIO BILIRUBIN, TOTAL (test code = 2207) <0.2 MG/DL ALKALINE PHOSPHATASE (test code = 4) 186 U/L AST (test code = 2218) 23 U/L ALT (test code = 2219) 24 U/L MICROALBUMIN/CREATININE, RANDOM AND [id number] 00:00:00* Test Item Value Reference Range Interpretation Comme nts CREATININE, URINE, RANDOM (t est code = 207) 82.3 MG/DL ALBUMIN, URINE, RANDOM (test code = 36632) 10.4 MG/DL CALC ALBUMIN/CREAT, RND (liana t code = 38979) 126 MG/G MICROALBUMIN/CREATININE, RANDOM AND [id number] 00:00:00* Test Item Value Reference Range Interpretation Comme nts CREATININE, URINE, RANDOM (t est code = 2071) 82.3 MG/DL ALBUMIN, URINE, RANDOM (test code = 80516) 10.4 MG/DL CALC ALBUMIN/CREAT, RND (liana t code = 73728) 126 MG/G LIPID [id number] 00:00:00* Test Item Value Reference Range Interpretation Comme nts CHOLESTEROL (test code = 2210) 251 MG/DL TRIGLYCERIDES (test code = 2232) 79 MG/DL HDL CHOLESTEROL (test code = 2220) 103 MG/DL CALC LDL CHOL (test code = 2237) 130 MG/DL RISK RATIO LDL/HDL (test cod e = 2238) 1.26 RATIO LIPID [id number] 00:00:00* Test Item Value Reference Range Interpretation Comme nts CHOLESTEROL (test code = 2210) 251 MG/DL TRIGLYCERIDES (test code = 2232) 79 MG/DL HDL CHOLESTEROL (test code = 2220) 103 MG/DL CALC LDL CHOL (test code = 2237) 130 MG/DL RISK RATIO LDL/HDL (test cod e = 2238) 1.26 RATIO COMPREHENSIVE METABOLIC [id number] 00:00:00* Test Item Value Reference Range Interpretation Comme nts GLUCOSE (test code = 2217) 56 MG/DL BUN (test code = 2208) 39 MG/DL CREATININE (test code = 2214) 1.46 MG/DL eGFR (2020 CKD-EPI) (test co de = 33033) 42 ML/MIN/1.73 CALC BUN/CREAT (test code = 2235) 27 RATIO SODIUM (test code = 2231) 141 MEQ/L POTASSIUM (test code = 2228) 5.1 MEQ/L CHLORIDE (test code = 2215) 103 MEQ/L CARBON DIOXIDE (test code = 2206) 22 MEQ/L CALCIUM (test code = 2209) 10.2 MG/DL PROTEIN, TOTAL (test code = 2229) 8.1 G/DL ALBUMIN (test code = 2201) 4.7 G/DL CALC GLOBULIN (test code = 2240) 3.4 G/DL CALC A/G RATIO (test code = 2234) 1.4 RATIO BILIRUBIN, TOTAL (test code = 2207) <0.2 MG/DL ALKALINE PHOSPHATASE (test code = 2204) 186 U/L AST (test code = 2218) 23 U/L ALT (test code = 2219) 24 U/L COMPREHENSIVE METABOLIC [id number] 00:00:00* Test Item Value Reference Range Interpretation Comme nts GLUCOSE (test code = 2217) 56 MG/DL BUN (test code = 2208) 39 MG/DL CREATININE (test code = 2214) 1.46 MG/DL eGFR (2020 CKD-EPI) (test co de = 62219) 42 ML/MIN/1.73 CALC BUN/CREAT (test code = 2235) 27 RATIO SODIUM (test code = 2231) 141 MEQ/L POTASSIUM (test code = 2228) 5.1 MEQ/L CHLORIDE (test code = 2215) 103 MEQ/L CARBON DIOXIDE (test code = 2206) 22 MEQ/L CALCIUM (test code = 2209) 10.2 MG/DL PROTEIN, TOTAL (test code = 2229) 8.1 G/DL ALBUMIN (test code = 2201) 4.7 G/DL CALC GLOBULIN (test code = 2240) 3.4 G/DL CALC A/G RATIO (test code = 2234) 1.4 RATIO BILIRUBIN, TOTAL (test code = 2207) <0.2 MG/DL ALKALINE PHOSPHATASE (test code = 2204) 186 U/L AST (test code = 2218) 23 U/L ALT (test code = 2219) 24 U/L MICROALBUMIN/CREATININE, RANDOM AND [id number] 00:00:00* Test Item Value Reference Range Interpretation Comme nts CREATININE, URINE, RANDOM (t est code = 2071) 82.3 MG/DL ALBUMIN, URINE, RANDOM (test code = 97964) 10.4 MG/DL CALC ALBUMIN/CREAT, RND (liana t code = 89472) 126 MG/G MICROALBUMIN/CREATININE, RANDOM AND [id number] 00:00:00* Test Item Value Reference Range Interpretation Comme nts CREATININE, URINE, RANDOM (t est code = 2072) 82.3 MG/DL ALBUMIN, URINE, RANDOM (test code = 46545) 10.4 MG/DL CALC ALBUMIN/CREAT, RND (liana t code = 09235) 126 MG/G LIPID [id number] 00:00:00* Test Item Value Reference Range Interpretation Comme nts CHOLESTEROL (test code = 2210) 251 MG/DL TRIGLYCERIDES (test code = 2232) 79 MG/DL HDL CHOLESTEROL (test code = 2220) 103 MG/DL CALC LDL CHOL (test code = 2237) 130 MG/DL RISK RATIO LDL/HDL (test cod e = 2238) 1.26 RATIO LIPID [id number] 00:00:00* Test Item Value Reference Range Interpretation Comme nts CHOLESTEROL (test code = 2210) 251 MG/DL TRIGLYCERIDES (test code = 2232) 79 MG/DL HDL CHOLESTEROL (test code = 2220) 103 MG/DL CALC LDL CHOL (test code = 2237) 130 MG/DL RISK RATIO LDL/HDL (test cod e = 2238) 1.26 RATIO COMPREHENSIVE METABOLIC [id number] 00:00:00* Test Item Value Reference Range Interpretation Comme nts GLUCOSE (test code = 2217) 56 MG/DL BUN (test code = 2208) 39 MG/DL CREATININE (test code = 2214) 1.46 MG/DL eGFR (2020 CKD-EPI) (test co de = 53274) 42 ML/MIN/1.73 CALC BUN/CREAT (test code = 2235) 27 RATIO SODIUM (test code = 2231) 141 MEQ/L POTASSIUM (test code = 2228) 5.1 MEQ/L CHLORIDE (test code = 2215) 103 MEQ/L CARBON DIOXIDE (test code = 2206) 22 MEQ/L CALCIUM (test code = 2209) 10.2 MG/DL PROTEIN, TOTAL (test code = 2229) 8.1 G/DL ALBUMIN (test code = 2201) 4.7 G/DL CALC GLOBULIN (test code = 2240) 3.4 G/DL CALC A/G RATIO (test code = 2234) 1.4 RATIO BILIRUBIN, TOTAL (test code = 2207) <0.2 MG/DL ALKALINE PHOSPHATASE (test code = 2204) 186 U/L AST (test code = 2218) 23 U/L ALT (test code = 2219) 24 U/L COMPREHENSIVE METABOLIC [id number] 00:00:00* Test Item Value Reference Range Interpretation Comme nts GLUCOSE (test code = 2217) 56 MG/DL BUN (test code = 2208) 39 MG/DL CREATININE (test code = 2214) 1.46 MG/DL eGFR (2020 CKD-EPI) (test co de = 43164) 42 ML/MIN/1.73 CALC BUN/CREAT (test code = 2235) 27 RATIO SODIUM (test code = 2231) 141 MEQ/L POTASSIUM (test code = 2228) 5.1 MEQ/L CHLORIDE (test code = 2215) 103 MEQ/L CARBON DIOXIDE (test code = 2206) 22 MEQ/L CALCIUM (test code = 2209) 10.2 MG/DL PROTEIN, TOTAL (test code = 2229) 8.1 G/DL ALBUMIN (test code = 2201) 4.7 G/DL CALC GLOBULIN (test code = 2240) 3.4 G/DL CALC A/G RATIO (test code = 2234) 1.4 RATIO BILIRUBIN, TOTAL (test code = 2207) <0.2 MG/DL ALKALINE PHOSPHATASE (test code = 2204) 186 U/L AST (test code = 2218) 23 U/L ALT (test code = 2219) 24 U/L MICROALBUMIN/CREATININE, RANDOM AND [id number] 00:00:00* Test Item Value Reference Range Interpretation Comme nts CREATININE, URINE, RANDOM (t est code = 2072) 82.3 MG/DL ALBUMIN, URINE, RANDOM (test code = 77592) 10.4 MG/DL CALC ALBUMIN/CREAT, RND (liana t code = 99167) 126 MG/G MICROALBUMIN/CREATININE, RANDOM AND [id number] 00:00:00* Test Item Value Reference Range Interpretation Comme nts CREATININE, URINE, RANDOM (t est code = 2071) 82.3 MG/DL ALBUMIN, URINE, RANDOM (test code = 41934) 10.4 MG/DL CALC ALBUMIN/CREAT, RND (liana t code = 95315) 126 MG/G LIPID [id number] 00:00:00* Test Item Value Reference Range Interpretation Comme nts CHOLESTEROL (test code = 2210) 251 MG/DL TRIGLYCERIDES (test code = 2232) 79 MG/DL HDL CHOLESTEROL (test code = 2220) 103 MG/DL CALC LDL CHOL (test code = 2237) 130 MG/DL RISK RATIO LDL/HDL (test cod e = 2238) 1.26 RATIO LIPID [id number] 00:00:00* Test Item Value Reference Range Interpretation Comme nts CHOLESTEROL (test code = 2210) 251 MG/DL TRIGLYCERIDES (test code = 2232) 79 MG/DL HDL CHOLESTEROL (test code = 2220) 103 MG/DL CALC LDL CHOL (test code = 2237) 130 MG/DL RISK RATIO LDL/HDL (test cod e = 2238) 1.26 RATIO COMPREHENSIVE METABOLIC [id number] 00:00:00* Test Item Value Reference Range Interpretation Comme nts GLUCOSE (test code = 2217) 56 MG/DL BUN (test code = 2208) 39 MG/DL CREATININE (test code = 2214) 1.46 MG/DL eGFR (2020 CKD-EPI) (test co de = 25290) 42 ML/MIN/1.73 CALC BUN/CREAT (test code = 2235) 27 RATIO SODIUM (test code = 2231) 141 MEQ/L POTASSIUM (test code = 2228) 5.1 MEQ/L CHLORIDE (test code = 2215) 103 MEQ/L CARBON DIOXIDE (test code = 2206) 22 MEQ/L CALCIUM (test code = 2209) 10.2 MG/DL PROTEIN, TOTAL (test code = 2229) 8.1 G/DL ALBUMIN (test code = 2201) 4.7 G/DL CALC GLOBULIN (test code = 2240) 3.4 G/DL CALC A/G RATIO (test code = 2234) 1.4 RATIO BILIRUBIN, TOTAL (test code = 2207) <0.2 MG/DL ALKALINE PHOSPHATASE (test code = 2204) 186 U/L AST (test code = 2218) 23 U/L ALT (test code = 2219) 24 U/L COMPREHENSIVE METABOLIC [id number] 00:00:00* Test Item Value Reference Range Interpretation Comme nts GLUCOSE (test code = 2217) 56 MG/DL BUN (test code = 8) 39 MG/DL CREATININE (test code = 2214) 1.46 MG/DL eGFR (2020 CKD-EPI) (test co de = 91236) 42 ML/MIN/1.73 CALC BUN/CREAT (test code = 2235) 27 RATIO SODIUM (test code = 2231) 141 MEQ/L POTASSIUM (test code = 2228) 5.1 MEQ/L CHLORIDE (test code = 2215) 103 MEQ/L CARBON DIOXIDE (test code = 2206) 22 MEQ/L CALCIUM (test code = 2209) 10.2 MG/DL PROTEIN, TOTAL (test code = 222) 8.1 G/DL ALBUMIN (test code = 220) 4.7 G/DL CALC GLOBULIN (test code = 2240) 3.4 G/DL CALC A/G RATIO (test code = 2234) 1.4 RATIO BILIRUBIN, TOTAL (test code = 220) <0.2 MG/DL ALKALINE PHOSPHATASE (test code = 4) 186 U/L AST (test code = 2218) 23 U/L ALT (test code = 2219) 24 U/L MICROALBUMIN/CREATININE, RANDOM AND [id number] 00:00:00* Test Item Value Reference Range Interpretation Comme nts CREATININE, URINE, RANDOM (t est code = 207) 82.3 MG/DL ALBUMIN, URINE, RANDOM (test code = 03550) 10.4 MG/DL CALC ALBUMIN/CREAT, RND (liana t code = 63532) 126 MG/G MICROALBUMIN/CREATININE, RANDOM AND [id number] 00:00:00* Test Item Value Reference Range Interpretation Comme nts CREATININE, URINE, RANDOM (t est code = 2072) 82.3 MG/DL ALBUMIN, URINE, RANDOM (test code = 69557) 10.4 MG/DL CALC ALBUMIN/CREAT, RND (liana t code = 78281) 126 MG/G LIPID [id number] 00:00:00* Test Item Value Reference Range Interpretation Comme nts CHOLESTEROL (test code = 2210) 251 MG/DL TRIGLYCERIDES (test code = 2232) 79 MG/DL HDL CHOLESTEROL (test code = 2220) 103 MG/DL CALC LDL CHOL (test code = 2237) 130 MG/DL RISK RATIO LDL/HDL (test cod e = 2238) 1.26 RATIO LIPID [id number] 00:00:00* Test Item Value Reference Range Interpretation Comme nts CHOLESTEROL (test code = 2210) 251 MG/DL TRIGLYCERIDES (test code = 2232) 79 MG/DL HDL CHOLESTEROL (test code = 2220) 103 MG/DL CALC LDL CHOL (test code = 2237) 130 MG/DL RISK RATIO LDL/HDL (test cod e = 2238) 1.26 RATIO COMPREHENSIVE METABOLIC [id number] 00:00:00* Test Item Value Reference Range Interpretation Comme nts GLUCOSE (test code = 2217) 56 MG/DL BUN (test code = 2208) 39 MG/DL CREATININE (test code = 2214) 1.46 MG/DL eGFR (2020 CKD-EPI) (test co de = 64128) 42 ML/MIN/1.73 CALC BUN/CREAT (test code = 2235) 27 RATIO SODIUM (test code = 2231) 141 MEQ/L POTASSIUM (test code = 2228) 5.1 MEQ/L CHLORIDE (test code = 2215) 103 MEQ/L CARBON DIOXIDE (test code = 2206) 22 MEQ/L CALCIUM (test code = 2209) 10.2 MG/DL PROTEIN, TOTAL (test code = 2229) 8.1 G/DL ALBUMIN (test code = 2201) 4.7 G/DL CALC GLOBULIN (test code = 2240) 3.4 G/DL CALC A/G RATIO (test code = 2234) 1.4 RATIO BILIRUBIN, TOTAL (test code = 2207) <0.2 MG/DL ALKALINE PHOSPHATASE (test code = 2204) 186 U/L AST (test code = 2218) 23 U/L ALT (test code = 2219) 24 U/L HEMOGLOBIN [id number] 03:34:07* Test Item Value Reference Range Interpretation Comme nts HEMOGLOBIN A1c (test code = 43328) 10.0 % 4.2-5.6 H [employer] GUIDELINES FOR HGB A1C: PREDIABETES/INCREASED RISK . . . . . . . 5.7-6.4% DIAGNOSIS OF DIABETES . . . . . . . . . >=6.5% WITH CONFIRMATION OR APPROPRIATE SYMPTOMS NOTE: ASSAY MAY BE AFFECTED BY HEMOGLOBINOPATHIES (SICKLE CELL ANEMIA, S-C DISEASE, OTHERS) OR ARTIFICIALLY LOWERED BY DECREASED RED CELL SURVIVAL (HEMOLYTIC ANEMIAS, BLOOD LOSS, ETC.). CONSIDER ALTERNATE TESTING OR LABORATORY CONSULTATION. CBC W/AUTO DIFF WITH [id number] 02:45:06* Test Item Value Reference Range Interpretation Comme nts WBC (test code = 1001) 9.6 K/UL 3.5-11.0 RBC (test code = 1002) 3.58 M/UL 3.80-5.40 L HEMOGLOBIN (test code = 1003) 10.3 G/DL 11.5-15.5 L HEMATOCRIT (test code = 1004) 30.3 % 34.0-45.0 L MCV (test code = 1005) 84.6 fL 80.0-99.0 MCH (test code = 1006) 28.8 PG 25.0-33.0 MCHC (test code = 1007) 34.0 G/DL 31.0-36.0 RDW (test code = 1038) 13.6 % 11.5-15.0 NEUTROPHILS (test code = 1008) 61.0 % LYMPHOCYTES (test code = 1010) 28.8 % MONOCYTES (test code = 1011) 6.4 % EOSINOPHILS (test code = 1012) 2.5 % BASOPHILS (test code = 1013) 1.0 % IMMATURE GRANULOCYTES (test code = 1036) 0.3 % NUCLEATED RBCS (test code = 1065) 0.0 /100 WBC'S See_Comment [Automated [employer]] The system which generated this result transmitted reference range: 0.0. The reference range was not used to interpret this result as normal/abnormal. PLATELET COUNT (test code = 1015) 376 K/UL 130-400 ABSOLUTE NEUTROPHILS (test code = 1066) 5.82 K/UL 1.50-7.50 ABSOLUTE LYMPHOCYTES (test code = 1067) 2.75 K/UL 1.00-4.00 ABSOLUTE MONOCYTES (test code = 1068) 0.61 K/UL 0.20-1.00 ABSOLUTE EOSINOPHILS (test code = 1040) 0.24 K/UL 0.00-0.50 ABSOLUTE BASOPHILS (test code = 1069) 0.10 K/UL 0.00-0.20 ABS IMMATURE GRANULOCYTES (test code = 1020) 0.03 K/UL 0.00-0.10 ABS NUCLEATED RBCS (test code = 30581) 0.00 K/UL 0.00-0.11 CBC W/AUTO [id number] 00:00:00* Test Item Value Reference Range Interpretation Comme nts WBC (test code = 1001) 9.6 K/UL [...] = 1013) 1.0 % IMMATURE GRANULOCYTES (test code = 1036) 0.3 % NUCLEATED RBCS (test code = 1065) 0.0 /100WBC'S PLATELET COUNT (test code = 1015) 376 K/UL ABSOLUTE NEUTROPHILS (test c ode = 1066) 5.82 K/UL ABSOLUTE LYMPHOCYTES (test c ode = 1067) 2.75 K/UL ABSOLUTE MONOCYTES (test cod e = 1068) 0.61 K/UL ABSOLUTE EOSINOPHILS (test c ode = 1040) 0.24 K/UL ABSOLUTE BASOPHILS (test cod e = 1069) 0.10 K/UL ABS IMMATURE GRANULOCYTES (t est code = 1020) 0.03 K/UL ABS NUCLEATED RBCS (test cod e = 44519) 0.00 K/UL CBC W/AUTO [id number] 00:00:00* Test Item Value Reference Range Interpretation Comme nts WBC (test code = 1001) 9.6 K/UL [...] = 1013) 1.0 % IMMATURE GRANULOCYTES (test code = 1036) 0.3 % NUCLEATED RBCS (test code = 1065) 0.0 /100WBC'S PLATELET COUNT (test code = 1015) 376 K/UL ABSOLUTE NEUTROPHILS (test c ode = 1066) 5.82 K/UL ABSOLUTE LYMPHOCYTES (test c ode = 1067) 2.75 K/UL ABSOLUTE MONOCYTES (test cod e = 1068) 0.61 K/UL ABSOLUTE EOSINOPHILS (test c ode = 1040) 0.24 K/UL ABSOLUTE BASOPHILS (test cod e = 1069) 0.10 K/UL ABS IMMATURE GRANULOCYTES (t est code = 1020) 0.03 K/UL ABS NUCLEATED RBCS (test cod e = 51173) 0.00 K/UL CBC W/AUTO [id number] 00:00:00* Test Item Value Reference Range Interpretation Comme nts WBC (test code = 1001) 9.6 K/UL [...] = 1013) 1.0 % IMMATURE GRANULOCYTES (test code = 1036) 0.3 % NUCLEATED RBCS (test code = 1065) 0.0 /100WBC'S PLATELET COUNT (test code = 1015) 376 K/UL ABSOLUTE NEUTROPHILS (test c ode = 1066) 5.82 K/UL ABSOLUTE LYMPHOCYTES (test c ode = 1067) 2.75 K/UL ABSOLUTE MONOCYTES (test cod e = 1068) 0.61 K/UL ABSOLUTE EOSINOPHILS (test c ode = 1040) 0.24 K/UL ABSOLUTE BASOPHILS (test cod e = 1069) 0.10 K/UL ABS IMMATURE GRANULOCYTES (t est code = 1020) 0.03 K/UL ABS NUCLEATED RBCS (test cod e = 17306) 0.00 K/UL HEMOGLOBIN [id number] 00:00:00* Test Item Value Reference Range Interpretation Comme nts HEMOGLOBIN A1c (test code = 74353) 10.0 % HEMOGLOBIN [id number] 00:00:00* Test Item Value Reference Range Interpretation Comme nts HEMOGLOBIN A1c (test code = 71771) 10.0 % HEMOGLOBIN [id number] 00:00:00* Test Item Value Reference Range Interpretation Comme nts HEMOGLOBIN A1c (test code = 98131) 10.0 % CBC W/AUTO [id number] 00:00:00* Test Item Value Reference Range Interpretation Comme nts WBC (test code = 1001) 9.6 K/UL [...] = 1013) 1.0 % IMMATURE GRANULOCYTES (test code = 1036) 0.3 % NUCLEATED RBCS (test code = 1065) 0.0 /100WBC'S PLATELET COUNT (test code = 1015) 376 K/UL ABSOLUTE NEUTROPHILS (test c ode = 1066) 5.82 K/UL ABSOLUTE LYMPHOCYTES (test c ode = 1067) 2.75 K/UL ABSOLUTE MONOCYTES (test cod e = 1068) 0.61 K/UL ABSOLUTE EOSINOPHILS (test c ode = 1040) 0.24 K/UL ABSOLUTE BASOPHILS (test cod e = 1069) 0.10 K/UL ABS IMMATURE GRANULOCYTES (t est code = 1020) 0.03 K/UL ABS NUCLEATED RBCS (test cod e = 88957) 0.00 K/UL CBC W/AUTO [id number] 00:00:00* Test Item Value Reference Range Interpretation Comme nts WBC (test code = 1001) 9.6 K/UL [...] = 1013) 1.0 % IMMATURE GRANULOCYTES (test code = 1036) 0.3 % NUCLEATED RBCS (test code = 1065) 0.0 /100WBC'S PLATELET COUNT (test code = 1015) 376 K/UL ABSOLUTE NEUTROPHILS (test c ode = 1066) 5.82 K/UL ABSOLUTE LYMPHOCYTES (test c ode = 1067) 2.75 K/UL ABSOLUTE MONOCYTES (test cod e = 1068) 0.61 K/UL ABSOLUTE EOSINOPHILS (test c ode = 1040) 0.24 K/UL ABSOLUTE BASOPHILS (test cod e = 1069) 0.10 K/UL ABS IMMATURE GRANULOCYTES (t est code = 1020) 0.03 K/UL ABS NUCLEATED RBCS (test cod e = 82983) 0.00 K/UL CBC W/AUTO [id number] 00:00:00* Test Item Value Reference Range Interpretation Comme nts WBC (test code = 1001) 9.6 K/UL [...] = 1013) 1.0 % IMMATURE GRANULOCYTES (test code = 1036) 0.3 % NUCLEATED RBCS (test code = 1065) 0.0 /100WBC'S PLATELET COUNT (test code = 1015) 376 K/UL ABSOLUTE NEUTROPHILS (test c ode = 1066) 5.82 K/UL ABSOLUTE LYMPHOCYTES (test c ode = 1067) 2.75 K/UL ABSOLUTE MONOCYTES (test cod e = 1068) 0.61 K/UL ABSOLUTE EOSINOPHILS (test c ode = 1040) 0.24 K/UL ABSOLUTE BASOPHILS (test cod e = 1069) 0.10 K/UL ABS IMMATURE GRANULOCYTES (t est code = 1020) 0.03 K/UL ABS NUCLEATED RBCS (test cod e = 40388) 0.00 K/UL HEMOGLOBIN [id number] 00:00:00* Test Item Value Reference Range Interpretation Comme nts HEMOGLOBIN A1c (test code = 98900) 10.0 % HEMOGLOBIN [id number] 00:00:00* Test Item Value Reference Range Interpretation Comme nts HEMOGLOBIN A1c (test code = 40592) 10.0 % HEMOGLOBIN [id number] 00:00:00* Test Item Value Reference Range Interpretation Comme nts HEMOGLOBIN A1c (test code = 98100) 10.0 % CBC W/AUTO [id number] 00:00:00* Test Item Value Reference Range Interpretation Comme nts WBC (test code = 1001) 9.6 K/UL [...] = 1013) 1.0 % IMMATURE GRANULOCYTES (test code = 1036) 0.3 % NUCLEATED RBCS (test code = 1065) 0.0 /100WBC'S PLATELET COUNT (test code = 1015) 376 K/UL ABSOLUTE NEUTROPHILS (test c ode = 1066) 5.82 K/UL ABSOLUTE LYMPHOCYTES (test c ode = 1067) 2.75 K/UL ABSOLUTE MONOCYTES (test cod e = 1068) 0.61 K/UL ABSOLUTE EOSINOPHILS (test c ode = 1040) 0.24 K/UL ABSOLUTE BASOPHILS (test cod e = 1069) 0.10 K/UL ABS IMMATURE GRANULOCYTES (t est code = 1020) 0.03 K/UL ABS NUCLEATED RBCS (test cod e = 67182) 0.00 K/UL CBC W/AUTO [id number] 00:00:00* Test Item Value Reference Range Interpretation Comme nts WBC (test code = 1001) 9.6 K/UL [...] = 1013) 1.0 % IMMATURE GRANULOCYTES (test code = 1036) 0.3 % NUCLEATED RBCS (test code = 1065) 0.0 /100WBC'S PLATELET COUNT (test code = 1015) 376 K/UL ABSOLUTE NEUTROPHILS (test c ode = 1066) 5.82 K/UL ABSOLUTE LYMPHOCYTES (test c ode = 1067) 2.75 K/UL ABSOLUTE MONOCYTES (test cod e = 1068) 0.61 K/UL ABSOLUTE EOSINOPHILS (test c ode = 1040) 0.24 K/UL ABSOLUTE BASOPHILS (test cod e = 1069) 0.10 K/UL ABS IMMATURE GRANULOCYTES (t est code = 1020) 0.03 K/UL ABS NUCLEATED RBCS (test cod e = 05605) 0.00 K/UL CBC W/AUTO [id number] 00:00:00* Test Item Value Reference Range Interpretation Comme nts WBC (test code = 1001) 9.6 K/UL [...] = 1013) 1.0 % IMMATURE GRANULOCYTES (test code = 1036) 0.3 % NUCLEATED RBCS (test code = 1065) 0.0 /100WBC'S PLATELET COUNT (test code = 1015) 376 K/UL ABSOLUTE NEUTROPHILS (test c ode = 1066) 5.82 K/UL ABSOLUTE LYMPHOCYTES (test c ode = 1067) 2.75 K/UL ABSOLUTE MONOCYTES (test cod e = 1068) 0.61 K/UL ABSOLUTE EOSINOPHILS (test c ode = 1040) 0.24 K/UL ABSOLUTE BASOPHILS (test cod e = 1069) 0.10 K/UL ABS IMMATURE GRANULOCYTES (t est code = 1020) 0.03 K/UL ABS NUCLEATED RBCS (test cod e = 30507) 0.00 K/UL HEMOGLOBIN [id number] 00:00:00* Test Item Value Reference Range Interpretation Comme nts HEMOGLOBIN A1c (test code = 78291) 10.0 % HEMOGLOBIN [id number] 00:00:00* Test Item Value Reference Range Interpretation Comme nts HEMOGLOBIN A1c (test code = 96437) 10.0 % HEMOGLOBIN [id number] 00:00:00* Test Item Value Reference Range Interpretation Comme nts HEMOGLOBIN A1c (test code = 13779) 10.0 % CBC W/AUTO [id number] 00:00:00* Test Item Value Reference Range Interpretation Comme nts WBC (test code = 1001) 9.6 K/UL [...] = 1013) 1.0 % IMMATURE GRANULOCYTES (test code = 1036) 0.3 % NUCLEATED RBCS (test code = 1065) 0.0 /100WBC'S PLATELET COUNT (test code = 1015) 376 K/UL ABSOLUTE NEUTROPHILS (test c ode = 1066) 5.82 K/UL ABSOLUTE LYMPHOCYTES (test c ode = 1067) 2.75 K/UL ABSOLUTE MONOCYTES (test cod e = 1068) 0.61 K/UL ABSOLUTE EOSINOPHILS (test c ode = 1040) 0.24 K/UL ABSOLUTE BASOPHILS (test cod e = 1069) 0.10 K/UL ABS IMMATURE GRANULOCYTES (t est code = 1020) 0.03 K/UL ABS NUCLEATED RBCS (test cod e = 52265) 0.00 K/UL CBC W/AUTO [id number] 00:00:00* Test Item Value Reference Range Interpretation Comme nts WBC (test code = 1001) 9.6 K/UL [...] = 1013) 1.0 % IMMATURE GRANULOCYTES (test code = 1036) 0.3 % NUCLEATED RBCS (test code = 1065) 0.0 /100WBC'S PLATELET COUNT (test code = 1015) 376 K/UL ABSOLUTE NEUTROPHILS (test c ode = 1066) 5.82 K/UL ABSOLUTE LYMPHOCYTES (test c ode = 1067) 2.75 K/UL ABSOLUTE MONOCYTES (test cod e = 1068) 0.61 K/UL ABSOLUTE EOSINOPHILS (test c ode = 1040) 0.24 K/UL ABSOLUTE BASOPHILS (test cod e = 1069) 0.10 K/UL ABS IMMATURE GRANULOCYTES (t est code = 1020) 0.03 K/UL ABS NUCLEATED RBCS (test cod e = 56068) 0.00 K/UL CBC W/AUTO [id number] 00:00:00* Test Item Value Reference Range Interpretation Comme nts WBC (test code = 1001) 9.6 K/UL [...] = 1013) 1.0 % IMMATURE GRANULOCYTES (test code = 1036) 0.3 % NUCLEATED RBCS (test code = 1065) 0.0 /100WBC'S PLATELET COUNT (test code = 1015) 376 K/UL ABSOLUTE NEUTROPHILS (test c ode = 1066) 5.82 K/UL ABSOLUTE LYMPHOCYTES (test c ode = 1067) 2.75 K/UL ABSOLUTE MONOCYTES (test cod e = 1068) 0.61 K/UL ABSOLUTE EOSINOPHILS (test c ode = 1040) 0.24 K/UL ABSOLUTE BASOPHILS (test cod e = 1069) 0.10 K/UL ABS IMMATURE GRANULOCYTES (t est code = 1020) 0.03 K/UL ABS NUCLEATED RBCS (test cod e = 71460) 0.00 K/UL HEMOGLOBIN [id number] 00:00:00* Test Item Value Reference Range Interpretation Comme nts HEMOGLOBIN A1c (test code = 41891) 10.0 % HEMOGLOBIN [id number] 00:00:00* Test Item Value Reference Range Interpretation Comme nts HEMOGLOBIN A1c (test code = 14303) 10.0 % HEMOGLOBIN [id number] 00:00:00* Test Item Value Reference Range Interpretation Comme nts HEMOGLOBIN A1c (test code = 33251) 10.0 % COMPREHENSIVE METABOLIC [id number] 00:00:00* Test Item Value Reference Range Interpretation Comme nts GLUCOSE (test code = 2217) 792 MG/DL BUN (test code = 2208) 59 MG/DL CREATININE (test code = 2214) 1.33 MG/DL eGFR AMER. (test cod e = 40391) 52 ML/MIN/1.73 eGFR NON- AMER. (test code = 51215) 45 ML/MIN/1.73 CALC BUN/CREAT (test code = 2235) 44 RATIO SODIUM (test code = 2231) 129 MEQ/L POTASSIUM (test code = 2228) 6.7 MEQ/L CHLORIDE (test code = 2215) 95 MEQ/L CARBON DIOXIDE (test code = 2206) 23 MEQ/L CALCIUM (test code = 2209) 10.5 MG/DL PROTEIN, TOTAL (test code = 2229) 7.1 G/DL ALBUMIN (test code = 2201) 4.0 G/DL CALC GLOBULIN (test code = 2240) 3.1 G/DL CALC A/G RATIO (test code = 2234) 1.3 RATIO BILIRUBIN, TOTAL (test code = 2207) <0.2 MG/DL ALKALINE PHOSPHATASE (test code = 2204) 123 U/L AST (test code = 2218) 21 U/L ALT (test code = 2219) 36 U/L COMPREHENSIVE METABOLIC [id number] 00:00:00* Test Item Value Reference Range Interpretation Comme nts GLUCOSE (test code = 2217) 792 MG/DL BUN (test code = 2208) 59 MG/DL CREATININE (test code = 2214) 1.33 MG/DL eGFR AMER. (test cod e = 87770) 52 ML/MIN/1.73 eGFR NON- AMER. (test code = 48887) 45 ML/MIN/1.73 CALC BUN/CREAT (test code = 2235) 44 RATIO SODIUM (test code = 2231) 129 MEQ/L POTASSIUM (test code = 2228) 6.7 MEQ/L CHLORIDE (test code = 2215) 95 MEQ/L CARBON DIOXIDE (test code = 2206) 23 MEQ/L CALCIUM (test code = 2209) 10.5 MG/DL PROTEIN, TOTAL (test code = 2229) 7.1 G/DL ALBUMIN (test code = 2201) 4.0 G/DL CALC GLOBULIN (test code = 2240) 3.1 G/DL CALC A/G RATIO (test code = 2234) 1.3 RATIO BILIRUBIN, TOTAL (test code = 2207) <0.2 MG/DL ALKALINE PHOSPHATASE (test code = 2204) 123 U/L AST (test code = 2218) 21 U/L ALT (test code = 2219) 36 U/L COMPREHENSIVE METABOLIC [id number] 00:00:00* Test Item Value Reference Range Interpretation Comme nts GLUCOSE (test code = 2217) 792 MG/DL BUN (test code = 2208) 59 MG/DL CREATININE (test code = 2214) 1.33 MG/DL eGFR AMER. (test cod e = 59286) 52 ML/MIN/1.73 eGFR NON- AMER. (test code = 51820) 45 ML/MIN/1.73 CALC BUN/CREAT (test code = 2235) 44 RATIO SODIUM (test code = 2231) 129 MEQ/L POTASSIUM (test code = 2228) 6.7 MEQ/L CHLORIDE (test code = 2215) 95 MEQ/L CARBON DIOXIDE (test code = 2206) 23 MEQ/L CALCIUM (test code = 2209) 10.5 MG/DL PROTEIN, TOTAL (test code = 2229) 7.1 G/DL ALBUMIN (test code = 2201) 4.0 G/DL CALC GLOBULIN (test code = 2240) 3.1 G/DL CALC A/G RATIO (test code = 2234) 1.3 RATIO BILIRUBIN, TOTAL (test code = 2207) <0.2 MG/DL ALKALINE PHOSPHATASE (test code = 2204) 123 U/L AST (test code = 2218) 21 U/L ALT (test code = 2219) 36 U/L COMPREHENSIVE METABOLIC [id number] 00:00:00* Test Item Value Reference Range Interpretation Comme nts GLUCOSE (test code = 2217) 792 MG/DL BUN (test code = 2208) 59 MG/DL CREATININE (test code = 2214) 1.33 MG/DL eGFR AMER. (test cod e = 76856) 52 ML/MIN/1.73 eGFR NON- AMER. (test code = 15227) 45 ML/MIN/1.73 CALC BUN/CREAT (test code = 2235) 44 RATIO SODIUM (test code = 2231) 129 MEQ/L POTASSIUM (test code = 2228) 6.7 MEQ/L CHLORIDE (test code = 2215) 95 MEQ/L CARBON DIOXIDE (test code = 2206) 23 MEQ/L CALCIUM (test code = 2209) 10.5 MG/DL PROTEIN, TOTAL (test code = 2229) 7.1 G/DL ALBUMIN (test code = 2201) 4.0 G/DL CALC GLOBULIN (test code = 2240) 3.1 G/DL CALC A/G RATIO (test code = 2234) 1.3 RATIO BILIRUBIN, TOTAL (test code = 2207) <0.2 MG/DL ALKALINE PHOSPHATASE (test code = 2204) 123 U/L AST (test code = 2218) 21 U/L ALT (test code = 2219) 36 U/L COMPREHENSIVE METABOLIC [id number] 00:00:00* Test Item Value Reference Range Interpretation Comme nts GLUCOSE (test code = 2217) 792 MG/DL BUN (test code = 2208) 59 MG/DL CREATININE (test code = 2214) 1.33 MG/DL eGFR AMER. (test cod e = 64517) 52 ML/MIN/1.73 eGFR NON- AMER. (test code = 87882) 45 ML/MIN/1.73 CALC BUN/CREAT (test code = 2235) 44 RATIO SODIUM (test code = 2231) 129 MEQ/L POTASSIUM (test code = 2228) 6.7 MEQ/L CHLORIDE (test code = 2215) 95 MEQ/L CARBON DIOXIDE (test code = 2206) 23 MEQ/L CALCIUM (test code = 2209) 10.5 MG/DL PROTEIN, TOTAL (test code = 2229) 7.1 G/DL ALBUMIN (test code = 2201) 4.0 G/DL CALC GLOBULIN (test code = 2240) 3.1 G/DL CALC A/G RATIO (test code = 2234) 1.3 RATIO BILIRUBIN, TOTAL (test code = 2207) <0.2 MG/DL ALKALINE PHOSPHATASE (test code = 2204) 123 U/L AST (test code = 2218) 21 U/L ALT (test code = 2219) 36 U/L COMPREHENSIVE METABOLIC [id number] 00:00:00* Test Item Value Reference Range Interpretation Comme nts GLUCOSE (test code = 2217) 792 MG/DL BUN (test code = 2208) 59 MG/DL CREATININE (test code = 2214) 1.33 MG/DL eGFR AMER. (test cod e = 86545) 52 ML/MIN/1.73 eGFR NON- AMER. (test code = 68095) 45 ML/MIN/1.73 CALC BUN/CREAT (test code = 2235) 44 RATIO SODIUM (test code = 2231) 129 MEQ/L POTASSIUM (test code = 2228) 6.7 MEQ/L CHLORIDE (test code = 2215) 95 MEQ/L CARBON DIOXIDE (test code = 2206) 23 MEQ/L CALCIUM (test code = 2209) 10.5 MG/DL PROTEIN, TOTAL (test code = 2229) 7.1 G/DL ALBUMIN (test code = 2201) 4.0 G/DL CALC GLOBULIN (test code = 2240) 3.1 G/DL CALC A/G RATIO (test code = 2234) 1.3 RATIO BILIRUBIN, TOTAL (test code = 2207) <0.2 MG/DL ALKALINE PHOSPHATASE (test code = 2204) 123 U/L AST (test code = 2218) 21 U/L ALT (test code = 2219) 36 U/L COMPREHENSIVE METABOLIC [id number] 00:00:00* Test Item Value Reference Range Interpretation Comme nts GLUCOSE (test code = 2217) 792 MG/DL BUN (test code = 2208) 59 MG/DL CREATININE (test code = 2214) 1.33 MG/DL eGFR AMER. (test cod e = 88366) 52 ML/MIN/1.73 eGFR NON- AMER. (test code = 81050) 45 ML/MIN/1.73 CALC BUN/CREAT (test code = 2235) 44 RATIO SODIUM (test code = 2231) 129 MEQ/L POTASSIUM (test code = 2228) 6.7 MEQ/L CHLORIDE (test code = 2215) 95 MEQ/L CARBON DIOXIDE (test code = 2206) 23 MEQ/L CALCIUM (test code = 2209) 10.5 MG/DL PROTEIN, TOTAL (test code = 2229) 7.1 G/DL ALBUMIN (test code = 2201) 4.0 G/DL CALC GLOBULIN (test code = 2240) 3.1 G/DL CALC A/G RATIO (test code = 2234) 1.3 RATIO BILIRUBIN, TOTAL (test code = 2207) <0.2 MG/DL ALKALINE PHOSPHATASE (test code = 2204) 123 U/L AST (test code = 2218) 21 U/L ALT (test code = 2219) 36 U/L COMPREHENSIVE METABOLIC [id number] 00:00:00* Test Item Value Reference Range Interpretation Comme nts GLUCOSE (test code = 2217) 792 MG/DL BUN (test code = 2208) 59 MG/DL CREATININE (test code = 2214) 1.33 MG/DL eGFR AMER. (test cod e = 18329) 52 ML/MIN/1.73 eGFR NON- AMER. (test code = 12223) 45 ML/MIN/1.73 CALC BUN/CREAT (test code = 2235) 44 RATIO SODIUM (test code = 2231) 129 MEQ/L POTASSIUM (test code = 2228) 6.7 MEQ/L CHLORIDE (test code = 2215) 95 MEQ/L CARBON DIOXIDE (test code = 2206) 23 MEQ/L CALCIUM (test code = 2209) 10.5 MG/DL PROTEIN, TOTAL (test code = 2229) 7.1 G/DL ALBUMIN (test code = 2201) 4.0 G/DL CALC GLOBULIN (test code = 2240) 3.1 G/DL CALC A/G RATIO (test code = 2234) 1.3 RATIO BILIRUBIN, TOTAL (test code = 2207) <0.2 MG/DL ALKALINE PHOSPHATASE (test code = 2204) 123 U/L AST (test code = 2218) 21 U/L ALT (test code = 2219) 36 U/L FREE T4 (THYROXINE) [ADDED]2021-04-20 00:00:00* Test Item Value Reference Range Interpretation Comme nts FREE T4 (THYROXINE) (test co de = 2823) 4.81 NG/DL FREE T4 (THYROXINE) [ADDED]2021-04-20 00:00:00* Test Item Value Reference Range Interpretation Comme nts FREE T4 (THYROXINE) (test co de = 2823) 4.81 NG/DL FREE T4 (THYROXINE) [ADDED]2021-04-20 00:00:00* Test Item Value Reference Range Interpretation Comme nts FREE T4 (THYROXINE) (test co de = 2823) 4.81 NG/DL FREE T3 [ADDED]2021-04-20 00:00:00* Test Item Value Reference Range Interpretation Comme nts FREE T3 (test code = 4273) 12.3 PG/ML FREE T3 [ADDED]2021-04-20 00:00:00* Test Item Value Reference Range Interpretation Comme nts FREE T3 (test code = 4273) 12.3 PG/ML NOTE: [ADDED]2021-04-20 00:00:00* Test Item Value Reference Range Interpretation Comme nts NOTE: (test code = 998) (NOTE) FREE T4 (THYROXINE) [ADDED]2021-04-20 00:00:00* Test Item Value Reference Range Interpretation Comme nts FREE T4 (THYROXINE) (test co de = 2823) 4.81 NG/DL FREE T4 (THYROXINE) [ADDED]2021-04-20 00:00:00* Test Item Value Reference Range Interpretation Comme nts FREE T4 (THYROXINE) (test co de = 2823) 4.81 NG/DL FREE T4 (THYROXINE) [ADDED]2021-04-20 00:00:00* Test Item Value Reference Range Interpretation Comme nts FREE T4 (THYROXINE) (test co de = 2823) 4.81 NG/DL FREE T3 [ADDED]2021-04-20 00:00:00* Test Item Value Reference Range Interpretation Comme nts FREE T3 (test code = 4273) 12.3 PG/ML FREE T3 [ADDED]2021-04-20 00:00:00* Test Item Value Reference Range Interpretation Comme nts FREE T3 (test code = 4273) 12.3 PG/ML NOTE: [ADDED]2021-04-20 00:00:00* Test Item Value Reference Range Interpretation Comme nts NOTE: (test code = 998) (NOTE) FREE T4 (THYROXINE) [ADDED]2021-04-20 00:00:00* Test Item Value Reference Range Interpretation Comme nts FREE T4 (THYROXINE) (test co de = 2823) 4.81 NG/DL FREE T4 (THYROXINE) [ADDED]2021-04-20 00:00:00* Test Item Value Reference Range Interpretation Comme nts FREE T4 (THYROXINE) (test co de = 2823) 4.81 NG/DL FREE T4 (THYROXINE) [ADDED]2021-04-20 00:00:00* Test Item Value Reference Range Interpretation Comme nts FREE T4 (THYROXINE) (test co de = 2823) 4.81 NG/DL FREE T3 [ADDED]2021-04-20 00:00:00* Test Item Value Reference Range Interpretation Comme nts FREE T3 (test code = 4273) 12.3 PG/ML FREE T3 [ADDED]2021-04-20 00:00:00* Test Item Value Reference Range Interpretation Comme nts FREE T3 (test code = 4273) 12.3 PG/ML NOTE: [ADDED]2021-04-20 00:00:00* Test Item Value Reference Range Interpretation Comme nts NOTE: (test code = 998) (NOTE) FREE T4 (THYROXINE) [ADDED]2021-04-20 00:00:00* Test Item Value Reference Range Interpretation Comme nts FREE T4 (THYROXINE) (test co de = 2823) 4.81 NG/DL FREE T4 (THYROXINE) [ADDED]2021-04-20 00:00:00* Test Item Value Reference Range Interpretation Comme nts FREE T4 (THYROXINE) (test co de = 2823) 4.81 NG/DL FREE T4 (THYROXINE) [ADDED]2021-04-20 00:00:00* Test Item Value Reference Range Interpretation Comme nts FREE T4 (THYROXINE) (test co de = 2823) 4.81 NG/DL FREE T3 [ADDED]2021-04-20 00:00:00* Test Item Value Reference Range Interpretation Comme nts FREE T3 (test code = 4273) 12.3 PG/ML FREE T3 [ADDED]2021-04-20 00:00:00* Test Item Value Reference Range Interpretation Comme nts FREE T3 (test code = 4273) 12.3 PG/ML NOTE: [ADDED]2021-04-20 00:00:00* Test Item Value Reference Range Interpretation Comme nts NOTE: (test code = 998) (NOTE) MICROALBUMIN, [id number] 00:00:00* Test Item Value Reference Range Interpretation Comme nts ALBUMIN, URINE, RANDOM (test code = 20601) 6.4 MG/DL MICROALBUMIN, [id number] 00:00:00* Test Item Value Reference Range Interpretation Comme nts ALBUMIN, URINE, RANDOM (test code = 47716) 6.4 MG/DL MICROALBUMIN, [id number] 00:00:00* Test Item Value Reference Range Interpretation Comme nts ALBUMIN, URINE, RANDOM (test code = 12085) 6.4 MG/DL MICROALBUMIN, [id number] 00:00:00* Test Item Value Reference Range Interpretation Comme nts ALBUMIN, URINE, RANDOM (test code = 73900) 6.4 MG/DL MICROALBUMIN, [id number] 00:00:00* Test Item Value Reference Range Interpretation Comme nts ALBUMIN, URINE, RANDOM (test code = 35047) 6.4 MG/DL MICROALBUMIN, [id number] 00:00:00* Test Item Value Reference Range Interpretation Comme nts ALBUMIN, URINE, RANDOM (test code = 76347) 6.4 MG/DL MICROALBUMIN, [id number] 00:00:00* Test Item Value Reference Range Interpretation Comme nts ALBUMIN, URINE, RANDOM (test code = 26007) 6.4 MG/DL MICROALBUMIN, [id number] 00:00:00* Test Item Value Reference Range Interpretation Comme nts ALBUMIN, URINE, RANDOM (test code = 20405) 6.4 MG/DL COMPREHENSIVE METABOLIC [id number] 00:00:00* Test Item Value Reference Range Interpretation Comme nts GLUCOSE (test code = 2217) 207 MG/DL BUN (test code = 2208) 45 MG/DL CREATININE (test code = 2214) 1.06 MG/DL eGFR AMER. (test cod e = 63476) 68 ML/MIN/1.73 eGFR NON- AMER. (test code = 72347) 59 ML/MIN/1.73 CALC BUN/CREAT (test code = 2235) 42 RATIO SODIUM (test code = 2231) 141 MEQ/L POTASSIUM (test code = 2228) 4.5 MEQ/L CHLORIDE (test code = 2215) 101 MEQ/L CARBON DIOXIDE (test code = 2206) 28 MEQ/L CALCIUM (test code = 2209) 10.2 MG/DL PROTEIN, TOTAL (test code = 2229) 7.1 G/DL ALBUMIN (test code = 2201) 4.3 G/DL CALC GLOBULIN (test code = 2240) 2.8 G/DL CALC A/G RATIO (test code = 2234) 1.5 RATIO BILIRUBIN, TOTAL (test code = 2207) <0.2 MG/DL ALKALINE PHOSPHATASE (test code = 2204) 124 U/L AST (test code = 2218) 34 U/L ALT (test code = 2219) 35 U/L COMPREHENSIVE METABOLIC [id number] 00:00:00* Test Item Value Reference Range Interpretation Comme nts GLUCOSE (test code = 2217) 207 MG/DL BUN (test code = 2208) 45 MG/DL CREATININE (test code = 2214) 1.06 MG/DL eGFR AMER. (test cod e = 85391) 68 ML/MIN/1.73 eGFR NON- AMER. (test code = 30501) 59 ML/MIN/1.73 CALC BUN/CREAT (test code = 2235) 42 RATIO SODIUM (test code = 2231) 141 MEQ/L POTASSIUM (test code = 2228) 4.5 MEQ/L CHLORIDE (test code = 2215) 101 MEQ/L CARBON DIOXIDE (test code = 2206) 28 MEQ/L CALCIUM (test code = 2209) 10.2 MG/DL PROTEIN, TOTAL (test code = 2229) 7.1 G/DL ALBUMIN (test code = 2201) 4.3 G/DL CALC GLOBULIN (test code = 2240) 2.8 G/DL CALC A/G RATIO (test code = 2234) 1.5 RATIO BILIRUBIN, TOTAL (test code = 2207) <0.2 MG/DL ALKALINE PHOSPHATASE (test code = 2204) 124 U/L AST (test code = 2218) 34 U/L ALT (test code = 2219) 35 U/L LIPID [id number] 00:00:00* Test Item Value Reference Range Interpretation Comme nts CHOLESTEROL (test code = 2210) 194 MG/DL TRIGLYCERIDES (test code = 2232) 80 MG/DL HDL CHOLESTEROL (test code = 2220) 75 MG/DL CALC LDL CHOL (test code = 2237) 102 MG/DL RISK RATIO LDL/HDL (test cod e = 2238) 1.36 RATIO LIPID [id number] 00:00:00* Test Item Value Reference Range Interpretation Comme nts CHOLESTEROL (test code = 2210) 194 MG/DL TRIGLYCERIDES (test code = 2232) 80 MG/DL HDL CHOLESTEROL (test code = 2220) 75 MG/DL CALC LDL CHOL (test code = 2237) 102 MG/DL RISK RATIO LDL/HDL (test cod e = 2238) 1.36 RATIO COMPREHENSIVE METABOLIC [id number] 00:00:00* Test Item Value Reference Range Interpretation Comme nts GLUCOSE (test code = 2217) 207 MG/DL BUN (test code = 2208) 45 MG/DL CREATININE (test code = 2214) 1.06 MG/DL eGFR AMER. (test cod e = 50975) 68 ML/MIN/1.73 eGFR NON- AMER. (test code = 39411) 59 ML/MIN/1.73 CALC BUN/CREAT (test code = 2235) 42 RATIO SODIUM (test code = 2231) 141 MEQ/L POTASSIUM (test code = 2228) 4.5 MEQ/L CHLORIDE (test code = 2215) 101 MEQ/L CARBON DIOXIDE (test code = 2206) 28 MEQ/L CALCIUM (test code = 2209) 10.2 MG/DL PROTEIN, TOTAL (test code = 2229) 7.1 G/DL ALBUMIN (test code = 2201) 4.3 G/DL CALC GLOBULIN (test code = 2240) 2.8 G/DL CALC A/G RATIO (test code = 2234) 1.5 RATIO BILIRUBIN, TOTAL (test code = 2207) <0.2 MG/DL ALKALINE PHOSPHATASE (test code = 2204) 124 U/L AST (test code = 2218) 34 U/L ALT (test code = 2219) 35 U/L COMPREHENSIVE METABOLIC [id number] 00:00:00* Test Item Value Reference Range Interpretation Comme nts GLUCOSE (test code = 2217) 207 MG/DL BUN (test code = 2208) 45 MG/DL CREATININE (test code = 2214) 1.06 MG/DL eGFR AMER. (test cod e = 55868) 68 ML/MIN/1.73 eGFR NON- AMER. (test code = 11113) 59 ML/MIN/1.73 CALC BUN/CREAT (test code = 2235) 42 RATIO SODIUM (test code = 2231) 141 MEQ/L POTASSIUM (test code = 2228) 4.5 MEQ/L CHLORIDE (test code = 2215) 101 MEQ/L CARBON DIOXIDE (test code = 2206) 28 MEQ/L CALCIUM (test code = 2209) 10.2 MG/DL PROTEIN, TOTAL (test code = 2229) 7.1 G/DL ALBUMIN (test code = 2201) 4.3 G/DL CALC GLOBULIN (test code = 2240) 2.8 G/DL CALC A/G RATIO (test code = 2234) 1.5 RATIO BILIRUBIN, TOTAL (test code = 2207) <0.2 MG/DL ALKALINE PHOSPHATASE (test code = 2204) 124 U/L AST (test code = 2218) 34 U/L ALT (test code = 2219) 35 U/L LIPID [id number] 00:00:00* Test Item Value Reference Range Interpretation Comme nts CHOLESTEROL (test code = 2210) 194 MG/DL TRIGLYCERIDES (test code = 2232) 80 MG/DL HDL CHOLESTEROL (test code = 2220) 75 MG/DL CALC LDL CHOL (test code = 2237) 102 MG/DL RISK RATIO LDL/HDL (test cod e = 2238) 1.36 RATIO LIPID [id number] 00:00:00* Test Item Value Reference Range Interpretation Comme nts CHOLESTEROL (test code = 2210) 194 MG/DL TRIGLYCERIDES (test code = 2232) 80 MG/DL HDL CHOLESTEROL (test code = 2220) 75 MG/DL CALC LDL CHOL (test code = 2237) 102 MG/DL RISK RATIO LDL/HDL (test cod e = 2238) 1.36 RATIO COMPREHENSIVE METABOLIC [id number] 00:00:00* Test Item Value Reference Range Interpretation Comme nts GLUCOSE (test code = 2217) 207 MG/DL BUN (test code = 2208) 45 MG/DL CREATININE (test code = 2214) 1.06 MG/DL eGFR AMER. (test cod e = 63298) 68 ML/MIN/1.73 eGFR NON- AMER. (test code = 59401) 59 ML/MIN/1.73 CALC BUN/CREAT (test code = 2235) 42 RATIO SODIUM (test code = 2231) 141 MEQ/L POTASSIUM (test code = 2228) 4.5 MEQ/L CHLORIDE (test code = 2215) 101 MEQ/L CARBON DIOXIDE (test code = 2206) 28 MEQ/L CALCIUM (test code = 2209) 10.2 MG/DL PROTEIN, TOTAL (test code = 2229) 7.1 G/DL ALBUMIN (test code = 2201) 4.3 G/DL CALC GLOBULIN (test code = 2240) 2.8 G/DL CALC A/G RATIO (test code = 2234) 1.5 RATIO BILIRUBIN, TOTAL (test code = 2207) <0.2 MG/DL ALKALINE PHOSPHATASE (test code = 2204) 124 U/L AST (test code = 2218) 34 U/L ALT (test code = 2219) 35 U/L COMPREHENSIVE METABOLIC [id number] 00:00:00* Test Item Value Reference Range Interpretation Comme nts GLUCOSE (test code = 2217) 207 MG/DL BUN (test code = 2208) 45 MG/DL CREATININE (test code = 2214) 1.06 MG/DL eGFR AMER. (test cod e = 06228) 68 ML/MIN/1.73 eGFR NON- AMER. (test code = 62912) 59 ML/MIN/1.73 CALC BUN/CREAT (test code = 2235) 42 RATIO SODIUM (test code = 2231) 141 MEQ/L POTASSIUM (test code = 2228) 4.5 MEQ/L CHLORIDE (test code = 2215) 101 MEQ/L CARBON DIOXIDE (test code = 2206) 28 MEQ/L CALCIUM (test code = 2209) 10.2 MG/DL PROTEIN, TOTAL (test code = 2229) 7.1 G/DL ALBUMIN (test code = 2201) 4.3 G/DL CALC GLOBULIN (test code = 2240) 2.8 G/DL CALC A/G RATIO (test code = 2234) 1.5 RATIO BILIRUBIN, TOTAL (test code = 2207) <0.2 MG/DL ALKALINE PHOSPHATASE (test code = 2204) 124 U/L AST (test code = 2218) 34 U/L ALT (test code = 2219) 35 U/L LIPID [id number] 00:00:00* Test Item Value Reference Range Interpretation Comme nts CHOLESTEROL (test code = 2210) 194 MG/DL TRIGLYCERIDES (test code = 2232) 80 MG/DL HDL CHOLESTEROL (test code = 2220) 75 MG/DL CALC LDL CHOL (test code = 2237) 102 MG/DL RISK RATIO LDL/HDL (test cod e = 2238) 1.36 RATIO LIPID [id number] 00:00:00* Test Item Value Reference Range Interpretation Comme nts CHOLESTEROL (test code = 2210) 194 MG/DL TRIGLYCERIDES (test code = 2232) 80 MG/DL HDL CHOLESTEROL (test code = 2220) 75 MG/DL CALC LDL CHOL (test code = 2237) 102 MG/DL RISK RATIO LDL/HDL (test cod e = 2238) 1.36 RATIO COMPREHENSIVE METABOLIC [id number] 00:00:00* Test Item Value Reference Range Interpretation Comme nts GLUCOSE (test code = 2217) 207 MG/DL BUN (test code = 2208) 45 MG/DL CREATININE (test code = 2214) 1.06 MG/DL eGFR AMER. (test cod e = 58453) 68 ML/MIN/1.73 eGFR NON- AMER. (test code = 66522) 59 ML/MIN/1.73 CALC BUN/CREAT (test code = 2235) 42 RATIO SODIUM (test code = 2231) 141 MEQ/L POTASSIUM (test code = 2228) 4.5 MEQ/L CHLORIDE (test code = 2215) 101 MEQ/L CARBON DIOXIDE (test code = 2206) 28 MEQ/L CALCIUM (test code = 2209) 10.2 MG/DL PROTEIN, TOTAL (test code = 2229) 7.1 G/DL ALBUMIN (test code = 2201) 4.3 G/DL CALC GLOBULIN (test code = 2240) 2.8 G/DL CALC A/G RATIO (test code = 2234) 1.5 RATIO BILIRUBIN, TOTAL (test code = 2207) <0.2 MG/DL ALKALINE PHOSPHATASE (test code = 2204) 124 U/L AST (test code = 2218) 34 U/L ALT (test code = 2219) 35 U/L COMPREHENSIVE METABOLIC [id number] 00:00:00* Test Item Value Reference Range Interpretation Comme nts GLUCOSE (test code = 2217) 207 MG/DL BUN (test code = 2208) 45 MG/DL CREATININE (test code = 2214) 1.06 MG/DL eGFR AMER. (test cod e = 61064) 68 ML/MIN/1.73 eGFR NON- AMER. (test code = 10996) 59 ML/MIN/1.73 CALC BUN/CREAT (test code = 2235) 42 RATIO SODIUM (test code = 2231) 141 MEQ/L POTASSIUM (test code = 2228) 4.5 MEQ/L CHLORIDE (test code = 2215) 101 MEQ/L CARBON DIOXIDE (test code = 2206) 28 MEQ/L CALCIUM (test code = 2209) 10.2 MG/DL PROTEIN, TOTAL (test code = 2229) 7.1 G/DL ALBUMIN (test code = 2201) 4.3 G/DL CALC GLOBULIN (test code = 2240) 2.8 G/DL CALC A/G RATIO (test code = 2234) 1.5 RATIO BILIRUBIN, TOTAL (test code = 2207) <0.2 MG/DL ALKALINE PHOSPHATASE (test code = 2204) 124 U/L AST (test code = 2218) 34 U/L ALT (test code = 2219) 35 U/L LIPID [id number] 00:00:00* Test Item Value Reference Range Interpretation Comme nts CHOLESTEROL (test code = 2210) 194 MG/DL TRIGLYCERIDES (test code = 2232) 80 MG/DL HDL CHOLESTEROL (test code = 2220) 75 MG/DL CALC LDL CHOL (test code = 2237) 102 MG/DL RISK RATIO LDL/HDL (test cod e = 2238) 1.36 RATIO LIPID [id number] 00:00:00* Test Item Value Reference Range Interpretation Comme nts CHOLESTEROL (test code = 2210) 194 MG/DL TRIGLYCERIDES (test code = 2232) 80 MG/DL HDL CHOLESTEROL (test code = 2220) 75 MG/DL CALC LDL CHOL (test code = 2237) 102 MG/DL RISK RATIO LDL/HDL (test cod e = 2238) 1.36 RATIO HEMOGLOBIN [id number] 00:00:00* Test Item Value Reference Range Interpretation Comme nts HEMOGLOBIN A1c (test code = 64948) 15.4 % CBC W/AUTO [id number] 00:00:00* Test Item Value Reference Range Interpretation Comme nts WBC (test code = 1001) 8.7 K/UL [...] code = 1015) 314 K/UL CBC W/AUTO [id number] 00:00:00* Test Item Value Reference Range Interpretation Comme nts WBC (test code = 1001) 8.7 K/UL [...] code = 1015) 314 K/UL CBC W/AUTO [id number] 00:00:00* Test Item Value Reference Range Interpretation Comme nts WBC (test code = 1001) 8.7 K/UL [...] (test code = 1015) 314 K/UL HEMOGLOBIN [id number] 00:00:00* Test Item Value Reference Range Interpretation Comme nts HEMOGLOBIN A1c (test code = 99230) 15.4 % HEMOGLOBIN [id number] 00:00:00* Test Item Value Reference Range Interpretation Comme nts HEMOGLOBIN A1c (test code = 19257) 15.4 % HEMOGLOBIN [id number] 00:00:00* Test Item Value Reference Range Interpretation Comme nts HEMOGLOBIN A1c (test code = 28595) 15.4 % CBC W/AUTO [id number] 00:00:00* Test Item Value Reference Range Interpretation Comme nts WBC (test code = 1001) 8.7 K/UL [...] code = 1015) 314 K/UL CBC W/AUTO [id number] 00:00:00* Test Item Value Reference Range Interpretation Comme nts WBC (test code = 1001) 8.7 K/UL [...] code = 1015) 314 K/UL CBC W/AUTO [id number] 00:00:00* Test Item Value Reference Range Interpretation Comme nts WBC (test code = 1001) 8.7 K/UL [...] (test code = 1015) 314 K/UL HEMOGLOBIN [id number] 00:00:00* Test Item Value Reference Range Interpretation Comme nts HEMOGLOBIN A1c (test code = 34344) 15.4 % HEMOGLOBIN [id number] 00:00:00* Test Item Value Reference Range Interpretation Comme nts HEMOGLOBIN A1c (test code = 41313) 15.4 % HEMOGLOBIN [id number] 00:00:00* Test Item Value Reference Range Interpretation Comme nts HEMOGLOBIN A1c (test code = 05413) 15.4 % CBC W/AUTO [id number] 00:00:00* Test Item Value Reference Range Interpretation Comme nts WBC (test code = 1001) 8.7 K/UL [...] code = 1015) 314 K/UL CBC W/AUTO [id number] 00:00:00* Test Item Value Reference Range Interpretation Comme nts WBC (test code = 1001) 8.7 K/UL [...] code = 1015) 314 K/UL CBC W/AUTO [id number] 00:00:00* Test Item Value Reference Range Interpretation Comme nts WBC (test code = 1001) 8.7 K/UL [...] (test code = 1015) 314 K/UL HEMOGLOBIN [id number] 00:00:00* Test Item Value Reference Range Interpretation Comme nts HEMOGLOBIN A1c (test code = 14076) 15.4 % HEMOGLOBIN [id number] 00:00:00* Test Item Value Reference Range Interpretation Comme nts HEMOGLOBIN A1c (test code = 28349) 15.4 % HEMOGLOBIN [id number] 00:00:00* Test Item Value Reference Range Interpretation Comme nts HEMOGLOBIN A1c (test code = 82356) 15.4 % CBC W/AUTO [id number] 00:00:00* Test Item Value Reference Range Interpretation Comme nts WBC (test code = 1001) 8.7 K/UL [...] code = 1015) 314 K/UL CBC W/AUTO [id number] 00:00:00* Test Item Value Reference Range Interpretation Comme nts WBC (test code = 1001) 8.7 K/UL [...] code = 1015) 314 K/UL CBC W/AUTO [id number] 00:00:00* Test Item Value Reference Range Interpretation Comme nts WBC (test code = 1001) 8.7 K/UL [...] (test code = 1015) 314 K/UL HEMOGLOBIN [id number] 00:00:00* Test Item Value Reference Range Interpretation Comme nts HEMOGLOBIN A1c (test code = 90205) 15.4 % HEMOGLOBIN [id number] 00:00:00* Test Item Value Reference Range Interpretation Comme nts HEMOGLOBIN A1c (test code = 53187) 15.4 % SARS-CoV-2 (COVID-19) by RT-PCR (HIGH RISK)2020-12-01 00:00:00* Test Item Value Reference Range Interpretation Comme nts SARS-CoV-2 INTERPRETATION (t est code = 18439) NEGATIVE SOURCE (test code = 79620) NOT SPECIFIED SARS-CoV-2 (COVID-19) by RT-PCR (HIGH RISK)2020-12-01 00:00:00* Test Item Value Reference Range Interpretation Comme nts SARS-CoV-2 INTERPRETATION (t est code = 14730) NEGATIVE SOURCE (test code = 12796) NOT SPECIFIED SARS-CoV-2 (COVID-19) by RT-PCR (HIGH RISK)2020-12-01 00:00:00* Test Item Value Reference Range Interpretation Comme nts SARS-CoV-2 INTERPRETATION (t est code = 31915) NEGATIVE SOURCE (test code = 59122) NOT SPECIFIED SARS-CoV-2 (COVID-19) by RT-PCR (HIGH RISK)2020-12-01 00:00:00* Test Item Value Reference Range Interpretation Comme nts SARS-CoV-2 INTERPRETATION (t est code = 66652) NEGATIVE SOURCE (test code = 48804) NOT SPECIFIED SARS-CoV-2 (COVID-19) by RT-PCR (HIGH RISK)2020-12-01 00:00:00* Test Item Value Reference Range Interpretation Comme nts SARS-CoV-2 INTERPRETATION (t est code = 46852) NEGATIVE SOURCE (test code = 34529) NOT SPECIFIED SARS-CoV-2 (COVID-19) by RT-PCR (HIGH RISK)2020-12-01 00:00:00* Test Item Value Reference Range Interpretation Comme nts SARS-CoV-2 INTERPRETATION (t est code = 20159) NEGATIVE SOURCE (test code = 75293) NOT SPECIFIED SARS-CoV-2 (COVID-19) by RT-PCR (HIGH RISK)2020-12-01 00:00:00* Test Item Value Reference Range Interpretation Comme nts SARS-CoV-2 INTERPRETATION (t est code = 94896) NEGATIVE SOURCE (test code = 59085) NOT SPECIFIED SARS-CoV-2 (COVID-19) by RT-PCR (HIGH RISK)2020-12-01 00:00:00* Test Item Value Reference Range Interpretation Comme nts SARS-CoV-2 INTERPRETATION (t est code = 17619) NEGATIVE SOURCE (test code = 10578) NOT SPECIFIED LIPID [id number] 00:00:00* Test Item Value Reference Range Interpretation Comme nts CHOLESTEROL (test code = 2210) 187 MG/DL TRIGLYCERIDES (test code = 2232) 105 MG/DL HDL CHOLESTEROL (test code = 2220) 69 MG/DL CALC LDL CHOL (test code = 2237) 98 MG/DL RISK RATIO LDL/HDL (test cod e = 2238) 1.42 RATIO LIPID [id number] 00:00:00* Test Item Value Reference Range Interpretation Comme nts CHOLESTEROL (test code = 2210) 187 MG/DL TRIGLYCERIDES (test code = 2232) 105 MG/DL HDL CHOLESTEROL (test code = 2220) 69 MG/DL CALC LDL CHOL (test code = 2237) 98 MG/DL RISK RATIO LDL/HDL (test cod e = 2238) 1.42 RATIO COMPREHENSIVE METABOLIC [id number] 00:00:00* Test Item Value Reference Range Interpretation Comme nts GLUCOSE (test code = 2217) 195 MG/DL BUN (test code = 2208) 25 MG/DL CREATININE (test code = 2214) 1.02 MG/DL eGFR AMER. (test cod e = 63865) 72 ML/MIN/1.73 eGFR NON- AMER. (test code = 86182) 62 ML/MIN/1.73 CALC BUN/CREAT (test code = 2235) 25 RATIO SODIUM (test code = 2231) 136 MEQ/L POTASSIUM (test code = 2228) 5.0 MEQ/L CHLORIDE (test code = 2215) 98 MEQ/L CARBON DIOXIDE (test code = 2206) 25 MEQ/L CALCIUM (test code = 2209) 10.6 MG/DL PROTEIN, TOTAL (test code = 2229) 7.7 G/DL ALBUMIN (test code = 2201) 4.3 G/DL CALC GLOBULIN (test code = 2240) 3.4 G/DL CALC A/G RATIO (test code = 2234) 1.3 RATIO BILIRUBIN, TOTAL (test code = 2207) 0.2 MG/DL ALKALINE PHOSPHATASE (test code = 2204) 331 U/L AST (test code = 2218) 23 U/L ALT (test code = 2219) 46 U/L COMPREHENSIVE METABOLIC [id number] 00:00:00* Test Item Value Reference Range Interpretation Comme nts GLUCOSE (test code = 2217) 195 MG/DL BUN (test code = 2208) 25 MG/DL CREATININE (test code = 2214) 1.02 MG/DL eGFR AMER. (test cod e = 48232) 72 ML/MIN/1.73 eGFR NON- AMER. (test code = 69745) 62 ML/MIN/1.73 CALC BUN/CREAT (test code = 2235) 25 RATIO SODIUM (test code = 2231) 136 MEQ/L POTASSIUM (test code = 2228) 5.0 MEQ/L CHLORIDE (test code = 2215) 98 MEQ/L CARBON DIOXIDE (test code = 2206) 25 MEQ/L CALCIUM (test code = 2209) 10.6 MG/DL PROTEIN, TOTAL (test code = 2229) 7.7 G/DL ALBUMIN (test code = 2201) 4.3 G/DL CALC GLOBULIN (test code = 2240) 3.4 G/DL CALC A/G RATIO (test code = 2234) 1.3 RATIO BILIRUBIN, TOTAL (test code = 2207) 0.2 MG/DL ALKALINE PHOSPHATASE (test code = 2204) 331 U/L AST (test code = 2218) 23 U/L ALT (test code = 2219) 46 U/L LIPID [id number] 00:00:00* Test Item Value Reference Range Interpretation Comme nts CHOLESTEROL (test code = 2210) 187 MG/DL TRIGLYCERIDES (test code = 2232) 105 MG/DL HDL CHOLESTEROL (test code = 2220) 69 MG/DL CALC LDL CHOL (test code = 2237) 98 MG/DL RISK RATIO LDL/HDL (test cod e = 2238) 1.42 RATIO LIPID [id number] 00:00:00* Test Item Value Reference Range Interpretation Comme nts CHOLESTEROL (test code = 2210) 187 MG/DL TRIGLYCERIDES (test code = 2232) 105 MG/DL HDL CHOLESTEROL (test code = 2220) 69 MG/DL CALC LDL CHOL (test code = 2237) 98 MG/DL RISK RATIO LDL/HDL (test cod e = 2238) 1.42 RATIO COMPREHENSIVE METABOLIC [id number] 00:00:00* Test Item Value Reference Range Interpretation Comme nts GLUCOSE (test code = 2217) 195 MG/DL BUN (test code = 2208) 25 MG/DL CREATININE (test code = 2214) 1.02 MG/DL eGFR AMER. (test cod e = 63906) 72 ML/MIN/1.73 eGFR NON- AMER. (test code = 90985) 62 ML/MIN/1.73 CALC BUN/CREAT (test code = 2235) 25 RATIO SODIUM (test code = 2231) 136 MEQ/L POTASSIUM (test code = 2228) 5.0 MEQ/L CHLORIDE (test code = 2215) 98 MEQ/L CARBON DIOXIDE (test code = 2206) 25 MEQ/L CALCIUM (test code = 2209) 10.6 MG/DL PROTEIN, TOTAL (test code = 2229) 7.7 G/DL ALBUMIN (test code = 2201) 4.3 G/DL CALC GLOBULIN (test code = 2240) 3.4 G/DL CALC A/G RATIO (test code = 2234) 1.3 RATIO BILIRUBIN, TOTAL (test code = 2207) 0.2 MG/DL ALKALINE PHOSPHATASE (test code = 2204) 331 U/L AST (test code = 2218) 23 U/L ALT (test code = 2219) 46 U/L COMPREHENSIVE METABOLIC [id number] 00:00:00* Test Item Value Reference Range Interpretation Comme nts GLUCOSE (test code = 2217) 195 MG/DL BUN (test code = 2208) 25 MG/DL CREATININE (test code = 2214) 1.02 MG/DL eGFR AMER. (test cod e = 75289) 72 ML/MIN/1.73 eGFR NON- AMER. (test code = 62718) 62 ML/MIN/1.73 CALC BUN/CREAT (test code = 2235) 25 RATIO SODIUM (test code = 2231) 136 MEQ/L POTASSIUM (test code = 2228) 5.0 MEQ/L CHLORIDE (test code = 2215) 98 MEQ/L CARBON DIOXIDE (test code = 2206) 25 MEQ/L CALCIUM (test code = 2209) 10.6 MG/DL PROTEIN, TOTAL (test code = 2229) 7.7 G/DL ALBUMIN (test code = 2201) 4.3 G/DL CALC GLOBULIN (test code = 2240) 3.4 G/DL CALC A/G RATIO (test code = 2234) 1.3 RATIO BILIRUBIN, TOTAL (test code = 2207) 0.2 MG/DL ALKALINE PHOSPHATASE (test code = 2204) 331 U/L AST (test code = 2218) 23 U/L ALT (test code = 2219) 46 U/L LIPID [id number] 00:00:00* Test Item Value Reference Range Interpretation Comme nts CHOLESTEROL (test code = 2210) 187 MG/DL TRIGLYCERIDES (test code = 2232) 105 MG/DL HDL CHOLESTEROL (test code = 2220) 69 MG/DL CALC LDL CHOL (test code = 2237) 98 MG/DL RISK RATIO LDL/HDL (test cod e = 2238) 1.42 RATIO LIPID [id number] 00:00:00* Test Item Value Reference Range Interpretation Comme nts CHOLESTEROL (test code = 2210) 187 MG/DL TRIGLYCERIDES (test code = 2232) 105 MG/DL HDL CHOLESTEROL (test code = 2220) 69 MG/DL CALC LDL CHOL (test code = 2237) 98 MG/DL RISK RATIO LDL/HDL (test cod e = 2238) 1.42 RATIO COMPREHENSIVE METABOLIC [id number] 00:00:00* Test Item Value Reference Range Interpretation Comme nts GLUCOSE (test code = 2217) 195 MG/DL BUN (test code = 2208) 25 MG/DL CREATININE (test code = 2214) 1.02 MG/DL eGFR AMER. (test cod e = 13445) 72 ML/MIN/1.73 eGFR NON- AMER. (test code = 71515) 62 ML/MIN/1.73 CALC BUN/CREAT (test code = 2235) 25 RATIO SODIUM (test code = 2231) 136 MEQ/L POTASSIUM (test code = 2228) 5.0 MEQ/L CHLORIDE (test code = 2215) 98 MEQ/L CARBON DIOXIDE (test code = 2206) 25 MEQ/L CALCIUM (test code = 2209) 10.6 MG/DL PROTEIN, TOTAL (test code = 2229) 7.7 G/DL ALBUMIN (test code = 2201) 4.3 G/DL CALC GLOBULIN (test code = 2240) 3.4 G/DL CALC A/G RATIO (test code = 2234) 1.3 RATIO BILIRUBIN, TOTAL (test code = 2207) 0.2 MG/DL ALKALINE PHOSPHATASE (test code = 2204) 331 U/L AST (test code = 2218) 23 U/L ALT (test code = 2219) 46 U/L COMPREHENSIVE METABOLIC [id number] 00:00:00* Test Item Value Reference Range Interpretation Comme nts GLUCOSE (test code = 2217) 195 MG/DL BUN (test code = 2208) 25 MG/DL CREATININE (test code = 2214) 1.02 MG/DL eGFR AMER. (test cod e = 42720) 72 ML/MIN/1.73 eGFR NON- AMER. (test code = 47664) 62 ML/MIN/1.73 CALC BUN/CREAT (test code = 2235) 25 RATIO SODIUM (test code = 2231) 136 MEQ/L POTASSIUM (test code = 2228) 5.0 MEQ/L CHLORIDE (test code = 2215) 98 MEQ/L CARBON DIOXIDE (test code = 2206) 25 MEQ/L CALCIUM (test code = 2209) 10.6 MG/DL PROTEIN, TOTAL (test code = 2229) 7.7 G/DL ALBUMIN (test code = 2201) 4.3 G/DL CALC GLOBULIN (test code = 2240) 3.4 G/DL CALC A/G RATIO (test code = 2234) 1.3 RATIO BILIRUBIN, TOTAL (test code = 2207) 0.2 MG/DL ALKALINE PHOSPHATASE (test code = 2204) 331 U/L AST (test code = 2218) 23 U/L ALT (test code = 2219) 46 U/L LIPID [id number] 00:00:00* Test Item Value Reference Range Interpretation Comme nts CHOLESTEROL (test code = 2210) 187 MG/DL TRIGLYCERIDES (test code = 2232) 105 MG/DL HDL CHOLESTEROL (test code = 2220) 69 MG/DL CALC LDL CHOL (test code = 2237) 98 MG/DL RISK RATIO LDL/HDL (test cod e = 2238) 1.42 RATIO LIPID [id number] 00:00:00* Test Item Value Reference Range Interpretation Comme nts CHOLESTEROL (test code = 2210) 187 MG/DL TRIGLYCERIDES (test code = 2232) 105 MG/DL HDL CHOLESTEROL (test code = 2220) 69 MG/DL CALC LDL CHOL (test code = 2237) 98 MG/DL RISK RATIO LDL/HDL (test cod e = 2238) 1.42 RATIO COMPREHENSIVE METABOLIC [id number] 00:00:00* Test Item Value Reference Range Interpretation Comme nts GLUCOSE (test code = 2217) 195 MG/DL BUN (test code = 2208) 25 MG/DL CREATININE (test code = 2214) 1.02 MG/DL eGFR AMER. (test cod e = 80344) 72 ML/MIN/1.73 eGFR NON- AMER. (test code = 51286) 62 ML/MIN/1.73 CALC BUN/CREAT (test code = 2235) 25 RATIO SODIUM (test code = 2231) 136 MEQ/L POTASSIUM (test code = 2228) 5.0 MEQ/L CHLORIDE (test code = 2215) 98 MEQ/L CARBON DIOXIDE (test code = 2206) 25 MEQ/L CALCIUM (test code = 2209) 10.6 MG/DL PROTEIN, TOTAL (test code = 2229) 7.7 G/DL ALBUMIN (test code = 2201) 4.3 G/DL CALC GLOBULIN (test code = 2240) 3.4 G/DL CALC A/G RATIO (test code = 2234) 1.3 RATIO BILIRUBIN, TOTAL (test code = 2207) 0.2 MG/DL ALKALINE PHOSPHATASE (test code = 2204) 331 U/L AST (test code = 2218) 23 U/L ALT (test code = 2219) 46 U/L COMPREHENSIVE METABOLIC [id number] 00:00:00* Test Item Value Reference Range Interpretation Comme nts GLUCOSE (test code = 2217) 195 MG/DL BUN (test code = 2208) 25 MG/DL CREATININE (test code = 2214) 1.02 MG/DL eGFR AMER. (test cod e = 85516) 72 ML/MIN/1.73 eGFR NON- AMER. (test code = 36719) 62 ML/MIN/1.73 CALC BUN/CREAT (test code = 2235) 25 RATIO SODIUM (test code = 2231) 136 MEQ/L POTASSIUM (test code = 2228) 5.0 MEQ/L CHLORIDE (test code = 2215) 98 MEQ/L CARBON DIOXIDE (test code = 2206) 25 MEQ/L CALCIUM (test code = 2209) 10.6 MG/DL PROTEIN, TOTAL (test code = 2229) 7.7 G/DL ALBUMIN (test code = 2201) 4.3 G/DL CALC GLOBULIN (test code = 2240) 3.4 G/DL CALC A/G RATIO (test code = 2234) 1.3 RATIO BILIRUBIN, TOTAL (test code = 2207) 0.2 MG/DL ALKALINE PHOSPHATASE (test code = 2204) 331 U/L AST (test code = 2218) 23 U/L ALT (test code = 2219) 46 U/L HEMOGLOBIN [id number] 00:00:00* Test Item Value Reference Range Interpretation Comme nts HEMOGLOBIN A1c (test code = 95381) 14.3 % HEMOGLOBIN [id number] 00:00:00* Test Item Value Reference Range Interpretation Comme nts HEMOGLOBIN A1c (test code = 97469) 14.3 % HEMOGLOBIN [id number] 00:00:00* Test Item Value Reference Range Interpretation Comme nts HEMOGLOBIN A1c (test code = 00707) 14.3 % HEMOGLOBIN [id number] 00:00:00* Test Item Value Reference Range Interpretation Comme nts HEMOGLOBIN A1c (test code = 98110) 14.3 % HEMOGLOBIN [id number] 00:00:00* Test Item Value Reference Range Interpretation Comme nts HEMOGLOBIN A1c (test code = 26555) 14.3 % HEMOGLOBIN [id number] 00:00:00* Test Item Value Reference Range Interpretation Comme nts HEMOGLOBIN A1c (test code = 76756) 14.3 % HEMOGLOBIN [id number] 00:00:00* Test Item Value Reference Range Interpretation Comme nts HEMOGLOBIN A1c (test code = 67324) 14.3 % HEMOGLOBIN [id number] 00:00:00* Test Item Value Reference Range Interpretation Comme nts HEMOGLOBIN A1c (test code = 04805) 14.3 % HEMOGLOBIN [id number] 00:00:00* Test Item Value Reference Range Interpretation Comme nts HEMOGLOBIN A1c (test code = 94577) 14.3 % HEMOGLOBIN [id number] 00:00:00* Test Item Value Reference Range Interpretation Comme nts HEMOGLOBIN A1c (test code = 09546) 14.3 % HEMOGLOBIN [id number] 00:00:00* Test Item Value Reference Range Interpretation Comme nts HEMOGLOBIN A1c (test code = 65648) 14.3 % HEMOGLOBIN [id number] 00:00:00* Test Item Value Reference Range Interpretation Comme nts HEMOGLOBIN A1c (test code = 32651) 14.3 % HEMOGLOBIN [id number] 00:00:00* Test Item Value Reference Range Interpretation Comme nts HEMOGLOBIN A1c (test code = 50169) 10.7 % HEMOGLOBIN [id number] 00:00:00* Test Item Value Reference Range Interpretation Comme nts HEMOGLOBIN A1c (test code = 97359) 10.7 % HEMOGLOBIN [id number] 00:00:00* Test Item Value Reference Range Interpretation Comme nts HEMOGLOBIN A1c (test code = 20811) 10.7 % HEMOGLOBIN [id number] 00:00:00* Test Item Value Reference Range Interpretation Comme nts HEMOGLOBIN A1c (test code = 57264) 10.7 % HEMOGLOBIN [id number] 00:00:00* Test Item Value Reference Range Interpretation Comme nts HEMOGLOBIN A1c (test code = 00651) 10.7 % HEMOGLOBIN [id number] 00:00:00* Test Item Value Reference Range Interpretation Comme nts HEMOGLOBIN A1c (test code = 66292) 10.7 % HEMOGLOBIN [id number] 00:00:00* Test Item Value Reference Range Interpretation Comme nts HEMOGLOBIN A1c (test code = 77403) 10.7 % HEMOGLOBIN [id number] 00:00:00* Test Item Value Reference Range Interpretation Comme nts HEMOGLOBIN A1c (test code = 56169) 10.7 % HEMOGLOBIN [id number] 00:00:00* Test Item Value Reference Range Interpretation Comme nts HEMOGLOBIN A1c (test code = 24505) 10.7 % HEMOGLOBIN [id number] 00:00:00* Test Item Value Reference Range Interpretation Comme nts HEMOGLOBIN A1c (test code = 97991) 10.7 % HEMOGLOBIN [id number] 00:00:00* Test Item Value Reference Range Interpretation Comme nts HEMOGLOBIN A1c (test code = 93346) 10.7 % HEMOGLOBIN [id number] 00:00:00* Test Item Value Reference Range Interpretation Comme nts HEMOGLOBIN A1c (test code = 09160) 10.7 % COMPREHENSIVE METABOLIC [id number] 00:00:00* Test Item Value Reference Range Interpretation Comme nts GLUCOSE (test code = 2217) 398 MG/DL BUN (test code = 2208) 39 MG/DL CREATININE (test code = 2214) 0.88 MG/DL eGFR AMER. (test cod e = 78545) 88 ML/MIN/1.73 eGFR NON- AMER. (test code = 81649) 76 ML/MIN/1.73 CALC BUN/CREAT (test code = 2235) 44 RATIO SODIUM (test code = 2231) 136 MEQ/L POTASSIUM (test code = 2228) 5.0 MEQ/L CHLORIDE (test code = 2215) 95 MEQ/L CARBON DIOXIDE (test code = 2206) 29 MEQ/L CALCIUM (test code = 2209) 9.8 MG/DL PROTEIN, TOTAL (test code = 2229) 7.2 G/DL ALBUMIN (test code = 2201) 4.5 G/DL CALC GLOBULIN (test code = 2240) 2.7 G/DL CALC A/G RATIO (test code = 2234) 1.7 RATIO BILIRUBIN, TOTAL (test code = 2207) 0.1 MG/DL ALKALINE PHOSPHATASE (test code = 2204) 102 U/L AST (test code = 2218) 16 U/L ALT (test code = 2219) 13 U/L COMPREHENSIVE METABOLIC [id number] 00:00:00* Test Item Value Reference Range Interpretation Comme nts GLUCOSE (test code = 2217) 398 MG/DL BUN (test code = 2208) 39 MG/DL CREATININE (test code = 2214) 0.88 MG/DL eGFR AMER. (test cod e = 21667) 88 ML/MIN/1.73 eGFR NON- AMER. (test code = 22332) 76 ML/MIN/1.73 CALC BUN/CREAT (test code = 2235) 44 RATIO SODIUM (test code = 2231) 136 MEQ/L POTASSIUM (test code = 2228) 5.0 MEQ/L CHLORIDE (test code = 2215) 95 MEQ/L CARBON DIOXIDE (test code = 2206) 29 MEQ/L CALCIUM (test code = 2209) 9.8 MG/DL PROTEIN, TOTAL (test code = 2229) 7.2 G/DL ALBUMIN (test code = 2201) 4.5 G/DL CALC GLOBULIN (test code = 2240) 2.7 G/DL CALC A/G RATIO (test code = 2234) 1.7 RATIO BILIRUBIN, TOTAL (test code = 2207) 0.1 MG/DL ALKALINE PHOSPHATASE (test code = 2204) 102 U/L AST (test code = 2218) 16 U/L ALT (test code = 2219) 13 U/L LIPID [id number] 00:00:00* Test Item Value Reference Range Interpretation Comme nts CHOLESTEROL (test code = 2210) 255 MG/DL TRIGLYCERIDES (test code = 2232) 144 MG/DL HDL CHOLESTEROL (test code = 2220) 62 MG/DL CALC LDL CHOL (test code = 2237) 164 MG/DL RISK RATIO LDL/HDL (test cod e = 2238) 2.65 RATIO LIPID [id number] 00:00:00* Test Item Value Reference Range Interpretation Comme nts CHOLESTEROL (test code = 2210) 255 MG/DL TRIGLYCERIDES (test code = 2232) 144 MG/DL HDL CHOLESTEROL (test code = 2220) 62 MG/DL CALC LDL CHOL (test code = 2237) 164 MG/DL RISK RATIO LDL/HDL (test cod e = 2238) 2.65 RATIO HEMOGLOBIN [id number] 00:00:00* Test Item Value Reference Range Interpretation Comme nts HEMOGLOBIN A1c (test code = 87759) 12.9 % HEMOGLOBIN [id number] 00:00:00* Test Item Value Reference Range Interpretation Comme nts HEMOGLOBIN A1c (test code = 44776) 12.9 % HEMOGLOBIN [id number] 00:00:00* Test Item Value Reference Range Interpretation Comme nts HEMOGLOBIN A1c (test code = 56446) 12.9 % COMPREHENSIVE METABOLIC [id number] 00:00:00* Test Item Value Reference Range Interpretation Comme nts GLUCOSE (test code = 2217) 398 MG/DL BUN (test code = 2208) 39 MG/DL CREATININE (test code = 2214) 0.88 MG/DL eGFR AMER. (test cod e = 52098) 88 ML/MIN/1.73 eGFR NON- AMER. (test code = 97772) 76 ML/MIN/1.73 CALC BUN/CREAT (test code = 2235) 44 RATIO SODIUM (test code = 2231) 136 MEQ/L POTASSIUM (test code = 2228) 5.0 MEQ/L CHLORIDE (test code = 2215) 95 MEQ/L CARBON DIOXIDE (test code = 2206) 29 MEQ/L CALCIUM (test code = 2209) 9.8 MG/DL PROTEIN, TOTAL (test code = 2229) 7.2 G/DL ALBUMIN (test code = 2201) 4.5 G/DL CALC GLOBULIN (test code = 2240) 2.7 G/DL CALC A/G RATIO (test code = 2234) 1.7 RATIO BILIRUBIN, TOTAL (test code = 2207) 0.1 MG/DL ALKALINE PHOSPHATASE (test code = 2204) 102 U/L AST (test code = 2218) 16 U/L ALT (test code = 2219) 13 U/L COMPREHENSIVE METABOLIC [id number] 00:00:00* Test Item Value Reference Range Interpretation Comme nts GLUCOSE (test code = 2217) 398 MG/DL BUN (test code = 2208) 39 MG/DL CREATININE (test code = 2214) 0.88 MG/DL eGFR AMER. (test cod e = 04991) 88 ML/MIN/1.73 eGFR NON- AMER. (test code = 11227) 76 ML/MIN/1.73 CALC BUN/CREAT (test code = 2235) 44 RATIO SODIUM (test code = 2231) 136 MEQ/L POTASSIUM (test code = 2228) 5.0 MEQ/L CHLORIDE (test code = 2215) 95 MEQ/L CARBON DIOXIDE (test code = 2206) 29 MEQ/L CALCIUM (test code = 2209) 9.8 MG/DL PROTEIN, TOTAL (test code = 2229) 7.2 G/DL ALBUMIN (test code = 2201) 4.5 G/DL CALC GLOBULIN (test code = 2240) 2.7 G/DL CALC A/G RATIO (test code = 2234) 1.7 RATIO BILIRUBIN, TOTAL (test code = 2207) 0.1 MG/DL ALKALINE PHOSPHATASE (test code = 2204) 102 U/L AST (test code = 2218) 16 U/L ALT (test code = 2219) 13 U/L LIPID [id number] 00:00:00* Test Item Value Reference Range Interpretation Comme nts CHOLESTEROL (test code = 2210) 255 MG/DL TRIGLYCERIDES (test code = 2232) 144 MG/DL HDL CHOLESTEROL (test code = 2220) 62 MG/DL CALC LDL CHOL (test code = 2237) 164 MG/DL RISK RATIO LDL/HDL (test cod e = 2238) 2.65 RATIO LIPID [id number] 00:00:00* Test Item Value Reference Range Interpretation Comme nts CHOLESTEROL (test code = 2210) 255 MG/DL TRIGLYCERIDES (test code = 2232) 144 MG/DL HDL CHOLESTEROL (test code = 2220) 62 MG/DL CALC LDL CHOL (test code = 2237) 164 MG/DL RISK RATIO LDL/HDL (test cod e = 2238) 2.65 RATIO HEMOGLOBIN [id number] 00:00:00* Test Item Value Reference Range Interpretation Comme nts HEMOGLOBIN A1c (test code = 66498) 12.9 % HEMOGLOBIN [id number] 00:00:00* Test Item Value Reference Range Interpretation Comme nts HEMOGLOBIN A1c (test code = 75902) 12.9 % HEMOGLOBIN [id number] 00:00:00* Test Item Value Reference Range Interpretation Comme nts HEMOGLOBIN A1c (test code = 40351) 12.9 % COMPREHENSIVE METABOLIC [id number] 00:00:00* Test Item Value Reference Range Interpretation Comme nts GLUCOSE (test code = 2217) 398 MG/DL BUN (test code = 2208) 39 MG/DL CREATININE (test code = 2214) 0.88 MG/DL eGFR AMER. (test cod e = 22608) 88 ML/MIN/1.73 eGFR NON- AMER. (test code = 92625) 76 ML/MIN/1.73 CALC BUN/CREAT (test code = 2235) 44 RATIO SODIUM (test code = 2231) 136 MEQ/L POTASSIUM (test code = 2228) 5.0 MEQ/L CHLORIDE (test code = 2215) 95 MEQ/L CARBON DIOXIDE (test code = 2206) 29 MEQ/L CALCIUM (test code = 2209) 9.8 MG/DL PROTEIN, TOTAL (test code = 2229) 7.2 G/DL ALBUMIN (test code = 2201) 4.5 G/DL CALC GLOBULIN (test code = 2240) 2.7 G/DL CALC A/G RATIO (test code = 2234) 1.7 RATIO BILIRUBIN, TOTAL (test code = 2207) 0.1 MG/DL ALKALINE PHOSPHATASE (test code = 2204) 102 U/L AST (test code = 2218) 16 U/L ALT (test code = 2219) 13 U/L COMPREHENSIVE METABOLIC [id number] 00:00:00* Test Item Value Reference Range Interpretation Comme nts GLUCOSE (test code = 2217) 398 MG/DL BUN (test code = 2208) 39 MG/DL CREATININE (test code = 2214) 0.88 MG/DL eGFR AMER. (test cod e = 63070) 88 ML/MIN/1.73 eGFR NON- AMER. (test code = 02254) 76 ML/MIN/1.73 CALC BUN/CREAT (test code = 2235) 44 RATIO SODIUM (test code = 2231) 136 MEQ/L POTASSIUM (test code = 2228) 5.0 MEQ/L CHLORIDE (test code = 2215) 95 MEQ/L CARBON DIOXIDE (test code = 2206) 29 MEQ/L CALCIUM (test code = 2209) 9.8 MG/DL PROTEIN, TOTAL (test code = 2229) 7.2 G/DL ALBUMIN (test code = 2201) 4.5 G/DL CALC GLOBULIN (test code = 2240) 2.7 G/DL CALC A/G RATIO (test code = 2234) 1.7 RATIO BILIRUBIN, TOTAL (test code = 2207) 0.1 MG/DL ALKALINE PHOSPHATASE (test code = 2204) 102 U/L AST (test code = 2218) 16 U/L ALT (test code = 2219) 13 U/L LIPID [id number] 00:00:00* Test Item Value Reference Range Interpretation Comme nts CHOLESTEROL (test code = 2210) 255 MG/DL TRIGLYCERIDES (test code = 2232) 144 MG/DL HDL CHOLESTEROL (test code = 2220) 62 MG/DL CALC LDL CHOL (test code = 2237) 164 MG/DL RISK RATIO LDL/HDL (test cod e = 2238) 2.65 RATIO LIPID [id number] 00:00:00* Test Item Value Reference Range Interpretation Comme nts CHOLESTEROL (test code = 2210) 255 MG/DL TRIGLYCERIDES (test code = 2232) 144 MG/DL HDL CHOLESTEROL (test code = 2220) 62 MG/DL CALC LDL CHOL (test code = 2237) 164 MG/DL RISK RATIO LDL/HDL (test cod e = 2238) 2.65 RATIO HEMOGLOBIN [id number] 00:00:00* Test Item Value Reference Range Interpretation Comme nts HEMOGLOBIN A1c (test code = 47614) 12.9 % HEMOGLOBIN [id number] 00:00:00* Test Item Value Reference Range Interpretation Comme nts HEMOGLOBIN A1c (test code = 42776) 12.9 % HEMOGLOBIN [id number] 00:00:00* Test Item Value Reference Range Interpretation Comme nts HEMOGLOBIN A1c (test code = 08539) 12.9 % COMPREHENSIVE METABOLIC [id number] 00:00:00* Test Item Value Reference Range Interpretation Comme nts GLUCOSE (test code = 221) 398 MG/DL BUN (test code = 2208) 39 MG/DL CREATININE (test code = 2214) 0.88 MG/DL eGFR AMER. (test cod e = 78787) 88 ML/MIN/1.73 eGFR NON- AMER. (test code = 98595) 76 ML/MIN/1.73 CALC BUN/CREAT (test code = 2235) 44 RATIO SODIUM (test code = 2231) 136 MEQ/L POTASSIUM (test code = 2228) 5.0 MEQ/L CHLORIDE (test code = 2215) 95 MEQ/L CARBON DIOXIDE (test code = 2206) 29 MEQ/L CALCIUM (test code = 2209) 9.8 MG/DL PROTEIN, TOTAL (test code = 2229) 7.2 G/DL ALBUMIN (test code = 2201) 4.5 G/DL CALC GLOBULIN (test code = 2240) 2.7 G/DL CALC A/G RATIO (test code = 2234) 1.7 RATIO BILIRUBIN, TOTAL (test code = 2207) 0.1 MG/DL ALKALINE PHOSPHATASE (test code = 2204) 102 U/L AST (test code = 2218) 16 U/L ALT (test code = 2219) 13 U/L COMPREHENSIVE METABOLIC [id number] 00:00:00* Test Item Value Reference Range Interpretation Comme nts GLUCOSE (test code = 2217) 398 MG/DL BUN (test code = 2208) 39 MG/DL CREATININE (test code = 2214) 0.88 MG/DL eGFR AMER. (test cod e = 29418) 88 ML/MIN/1.73 eGFR NON- AMER. (test code = 57983) 76 ML/MIN/1.73 CALC BUN/CREAT (test code = 2235) 44 RATIO SODIUM (test code = 2231) 136 MEQ/L POTASSIUM (test code = 2228) 5.0 MEQ/L CHLORIDE (test code = 2215) 95 MEQ/L CARBON DIOXIDE (test code = 2206) 29 MEQ/L CALCIUM (test code = 2209) 9.8 MG/DL PROTEIN, TOTAL (test code = 2229) 7.2 G/DL ALBUMIN (test code = 2201) 4.5 G/DL CALC GLOBULIN (test code = 2240) 2.7 G/DL CALC A/G RATIO (test code = 2234) 1.7 RATIO BILIRUBIN, TOTAL (test code = 220) 0.1 MG/DL ALKALINE PHOSPHATASE (test code = 2204) 102 U/L AST (test code = 2218) 16 U/L ALT (test code = 2219) 13 U/L LIPID [id number] 00:00:00* Test Item Value Reference Range Interpretation Comme nts CHOLESTEROL (test code = 2210) 255 MG/DL TRIGLYCERIDES (test code = 2232) 144 MG/DL HDL CHOLESTEROL (test code = 2220) 62 MG/DL CALC LDL CHOL (test code = 2237) 164 MG/DL RISK RATIO LDL/HDL (test cod e = 2238) 2.65 RATIO LIPID [id number] 00:00:00* Test Item Value Reference Range Interpretation Comme nts CHOLESTEROL (test code = 2210) 255 MG/DL TRIGLYCERIDES (test code = 2232) 144 MG/DL HDL CHOLESTEROL (test code = 2220) 62 MG/DL CALC LDL CHOL (test code = 2237) 164 MG/DL RISK RATIO LDL/HDL (test cod e = 2238) 2.65 RATIO HEMOGLOBIN [id number] 00:00:00* Test Item Value Reference Range Interpretation Comme nts HEMOGLOBIN A1c (test code = 13222) 12.9 % HEMOGLOBIN [id number] 00:00:00* Test Item Value Reference Range Interpretation Comme nts HEMOGLOBIN A1c (test code = 85459) 12.9 % HEMOGLOBIN [id number] 00:00:00* Test Item Value Reference Range Interpretation Comme nts HEMOGLOBIN A1c (test code = 10794) 12.9 % HEMOGLOBIN [id number] 00:00:00* Test Item Value Reference Range Interpretation Comme nts HEMOGLOBIN A1c (test code = 55272) 13.9 % CBC W/AUTO [id number] 00:00:00* Test Item Value Reference Range Interpretation Comme nts WBC (test code = 1001) 9.3 K/UL [...] code = 1015) 272 K/UL CBC W/AUTO [id number] 00:00:00* Test Item Value Reference Range Interpretation Comme nts WBC (test code = 1001) 9.3 K/UL [...] code = 1015) 272 K/UL CBC W/AUTO [id number] 00:00:00* Test Item Value Reference Range Interpretation Comme nts WBC (test code = 1001) 9.3 K/UL [...] code = 1015) 272 K/UL COMPREHENSIVE METABOLIC [id number] 00:00:00* Test Item Value Reference Range Interpretation Comme nts GLUCOSE (test code = 2217) 241 MG/DL BUN (test code = 2208) 21 MG/DL CREATININE (test code = 2214) 0.83 MG/DL eGFR AMER. (test cod e = 97919) 94 ML/MIN/1.73 eGFR NON- AMER. (test code = 24331) 81 ML/MIN/1.73 CALC BUN/CREAT (test code = 2235) 25 RATIO SODIUM (test code = 2231) 140 MEQ/L POTASSIUM (test code = 2228) 4.0 MEQ/L CHLORIDE (test code = 2215) 99 MEQ/L CARBON DIOXIDE (test code = 2206) 28 MEQ/L CALCIUM (test code = 2209) 10.0 MG/DL PROTEIN, TOTAL (test code = 2229) 7.6 G/DL ALBUMIN (test code = 2201) 4.7 G/DL CALC GLOBULIN (test code = 2240) 2.9 G/DL CALC A/G RATIO (test code = 2234) 1.6 RATIO BILIRUBIN, TOTAL (test code = 2207) 0.3 MG/DL ALKALINE PHOSPHATASE (test code = 2204) 121 U/L AST (test code = 2218) 13 U/L ALT (test code = 2219) 14 U/L COMPREHENSIVE METABOLIC [id number] 00:00:00* Test Item Value Reference Range Interpretation Comme nts GLUCOSE (test code = 2217) 241 MG/DL BUN (test code = 2208) 21 MG/DL CREATININE (test code = 2214) 0.83 MG/DL eGFR AMER. (test cod e = 31013) 94 ML/MIN/1.73 eGFR NON- AMER. (test code = 67044) 81 ML/MIN/1.73 CALC BUN/CREAT (test code = 2235) 25 RATIO SODIUM (test code = 2231) 140 MEQ/L POTASSIUM (test code = 2228) 4.0 MEQ/L CHLORIDE (test code = 2215) 99 MEQ/L CARBON DIOXIDE (test code = 2206) 28 MEQ/L CALCIUM (test code = 2209) 10.0 MG/DL PROTEIN, TOTAL (test code = 2229) 7.6 G/DL ALBUMIN (test code = 2201) 4.7 G/DL CALC GLOBULIN (test code = 2240) 2.9 G/DL CALC A/G RATIO (test code = 2234) 1.6 RATIO BILIRUBIN, TOTAL (test code = 2207) 0.3 MG/DL ALKALINE PHOSPHATASE (test code = 2204) 121 U/L AST (test code = 2218) 13 U/L ALT (test code = 2219) 14 U/L LIPID [id number] 00:00:00* Test Item Value Reference Range Interpretation Comme nts CHOLESTEROL (test code = 2210) 255 MG/DL TRIGLYCERIDES (test code = 2232) 116 MG/DL HDL CHOLESTEROL (test code = 2220) 75 MG/DL CALC LDL CHOL (test code = 2237) 157 MG/DL RISK RATIO LDL/HDL (test cod e = 2238) 2.09 RATIO LIPID [id number] 00:00:00* Test Item Value Reference Range Interpretation Comme nts CHOLESTEROL (test code = 2210) 255 MG/DL TRIGLYCERIDES (test code = 2232) 116 MG/DL HDL CHOLESTEROL (test code = 2220) 75 MG/DL CALC LDL CHOL (test code = 2237) 157 MG/DL RISK RATIO LDL/HDL (test cod e = 2238) 2.09 RATIO THYROID II PROFILE (T3U, T4, T7, TSH)[id number] 00:00:00* Test Item Value Reference Range Interpretation Comme nts T3 UPTAKE (test code = 2817) 32.8 % T4 (THYROXINE) (test code = 2819) 7.1 UG/DL CALCULATED T7 (FTI) (test co de = 2820) 2.33 TSH (test code = 2821) 0.892 UIU/ML THYROID II PROFILE (T3U, T4, T7, TSH)[id number] 00:00:00* Test Item Value Reference Range Interpretation Comme nts T3 UPTAKE (test code = 2817) 32.8 % T4 (THYROXINE) (test code = 2819) 7.1 UG/DL CALCULATED T7 (FTI) (test co de = 2820) 2.33 TSH (test code = 2821) 0.892 UIU/ML HEMOGLOBIN [id number] 00:00:00* Test Item Value Reference Range Interpretation Comme nts HEMOGLOBIN A1c (test code = 83074) 13.9 % HEMOGLOBIN [id number] 00:00:00* Test Item Value Reference Range Interpretation Comme nts HEMOGLOBIN A1c (test code = 11980) 13.9 % HEMOGLOBIN [id number] 00:00:00* Test Item Value Reference Range Interpretation Comme nts HEMOGLOBIN A1c (test code = 41865) 13.9 % CBC W/AUTO [id number] 00:00:00* Test Item Value Reference Range Interpretation Comme nts WBC (test code = 1001) 9.3 K/UL [...] code = 1015) 272 K/UL CBC W/AUTO [id number] 00:00:00* Test Item Value Reference Range Interpretation Comme nts WBC (test code = 1001) 9.3 K/UL [...] code = 1015) 272 K/UL CBC W/AUTO [id number] 00:00:00* Test Item Value Reference Range Interpretation Comme nts WBC (test code = 1001) 9.3 K/UL [...] code = 1015) 272 K/UL COMPREHENSIVE METABOLIC [id number] 00:00:00* Test Item Value Reference Range Interpretation Comme nts GLUCOSE (test code = 2217) 241 MG/DL BUN (test code = 2208) 21 MG/DL CREATININE (test code = 2214) 0.83 MG/DL eGFR AMER. (test cod e = 10818) 94 ML/MIN/1.73 eGFR NON- AMER. (test code = 01483) 81 ML/MIN/1.73 CALC BUN/CREAT (test code = 2235) 25 RATIO SODIUM (test code = 2231) 140 MEQ/L POTASSIUM (test code = 2228) 4.0 MEQ/L CHLORIDE (test code = 2215) 99 MEQ/L CARBON DIOXIDE (test code = 2206) 28 MEQ/L CALCIUM (test code = 2209) 10.0 MG/DL PROTEIN, TOTAL (test code = 2229) 7.6 G/DL ALBUMIN (test code = 2201) 4.7 G/DL CALC GLOBULIN (test code = 2240) 2.9 G/DL CALC A/G RATIO (test code = 2234) 1.6 RATIO BILIRUBIN, TOTAL (test code = 2207) 0.3 MG/DL ALKALINE PHOSPHATASE (test code = 2204) 121 U/L AST (test code = 2218) 13 U/L ALT (test code = 2219) 14 U/L COMPREHENSIVE METABOLIC [id number] 00:00:00* Test Item Value Reference Range Interpretation Comme nts GLUCOSE (test code = 2217) 241 MG/DL BUN (test code = 2208) 21 MG/DL CREATININE (test code = 2214) 0.83 MG/DL eGFR AMER. (test cod e = 60510) 94 ML/MIN/1.73 eGFR NON- AMER. (test code = 10731) 81 ML/MIN/1.73 CALC BUN/CREAT (test code = 2235) 25 RATIO SODIUM (test code = 2231) 140 MEQ/L POTASSIUM (test code = 2228) 4.0 MEQ/L CHLORIDE (test code = 2215) 99 MEQ/L CARBON DIOXIDE (test code = 2206) 28 MEQ/L CALCIUM (test code = 2209) 10.0 MG/DL PROTEIN, TOTAL (test code = 2229) 7.6 G/DL ALBUMIN (test code = 2201) 4.7 G/DL CALC GLOBULIN (test code = 2240) 2.9 G/DL CALC A/G RATIO (test code = 2234) 1.6 RATIO BILIRUBIN, TOTAL (test code = 2207) 0.3 MG/DL ALKALINE PHOSPHATASE (test code = 2204) 121 U/L AST (test code = 2218) 13 U/L ALT (test code = 2219) 14 U/L LIPID [id number] 00:00:00* Test Item Value Reference Range Interpretation Comme nts CHOLESTEROL (test code = 2210) 255 MG/DL TRIGLYCERIDES (test code = 2232) 116 MG/DL HDL CHOLESTEROL (test code = 2220) 75 MG/DL CALC LDL CHOL (test code = 2237) 157 MG/DL RISK RATIO LDL/HDL (test cod e = 2238) 2.09 RATIO LIPID [id number] 00:00:00* Test Item Value Reference Range Interpretation Comme nts CHOLESTEROL (test code = 2210) 255 MG/DL TRIGLYCERIDES (test code = 2232) 116 MG/DL HDL CHOLESTEROL (test code = 2220) 75 MG/DL CALC LDL CHOL (test code = 2237) 157 MG/DL RISK RATIO LDL/HDL (test cod e = 2238) 2.09 RATIO THYROID II PROFILE (T3U, T4, T7, TSH)[id number] 00:00:00* Test Item Value Reference Range Interpretation Comme nts T3 UPTAKE (test code = 2817) 32.8 % T4 (THYROXINE) (test code = 2819) 7.1 UG/DL CALCULATED T7 (FTI) (test co de = 2820) 2.33 TSH (test code = 2821) 0.892 UIU/ML THYROID II PROFILE (T3U, T4, T7, TSH)2017-04-28 00:00:00* Test Item Value Reference Range Interpretation Comme nts T3 UPTAKE (test code = 2817) 32.8 % T4 (THYROXINE) (test code = 2819) 7.1 UG/DL CALCULATED T7 (FTI) (test co de = 2820) 2.33 TSH (test code = 2821) 0.892 UIU/ML HEMOGLOBIN [id number] 00:00:00* Test Item Value Reference Range Interpretation Comme nts HEMOGLOBIN A1c (test code = 92934) 13.9 % HEMOGLOBIN [id number] 00:00:00* Test Item Value Reference Range Interpretation Comme nts HEMOGLOBIN A1c (test code = 17925) 13.9 % HEMOGLOBIN [id number] 00:00:00* Test Item Value Reference Range Interpretation Comme nts HEMOGLOBIN A1c (test code = 32877) 13.9 % CBC W/AUTO [id number] 00:00:00* Test Item Value Reference Range Interpretation Comme nts WBC (test code = 1001) 9.3 K/UL [...] code = 1015) 272 K/UL CBC W/AUTO [id number] 00:00:00* Test Item Value Reference Range Interpretation Comme nts WBC (test code = 1001) 9.3 K/UL [...] code = 1015) 272 K/UL CBC W/AUTO [id number] 00:00:00* Test Item Value Reference Range Interpretation Comme nts WBC (test code = 1001) 9.3 K/UL [...] code = 1015) 272 K/UL COMPREHENSIVE METABOLIC [id number] 00:00:00* Test Item Value Reference Range Interpretation Comme nts GLUCOSE (test code = 2217) 241 MG/DL BUN (test code = 2208) 21 MG/DL CREATININE (test code = 2214) 0.83 MG/DL eGFR AMER. (test cod e = 43300) 94 ML/MIN/1.73 eGFR NON- AMER. (test code = 95220) 81 ML/MIN/1.73 CALC BUN/CREAT (test code = 2235) 25 RATIO SODIUM (test code = 2231) 140 MEQ/L POTASSIUM (test code = 2228) 4.0 MEQ/L CHLORIDE (test code = 2215) 99 MEQ/L CARBON DIOXIDE (test code = 2206) 28 MEQ/L CALCIUM (test code = 2209) 10.0 MG/DL PROTEIN, TOTAL (test code = 2229) 7.6 G/DL ALBUMIN (test code = 2201) 4.7 G/DL CALC GLOBULIN (test code = 2240) 2.9 G/DL CALC A/G RATIO (test code = 2234) 1.6 RATIO BILIRUBIN, TOTAL (test code = 2207) 0.3 MG/DL ALKALINE PHOSPHATASE (test code = 2204) 121 U/L AST (test code = 2218) 13 U/L ALT (test code = 2219) 14 U/L COMPREHENSIVE METABOLIC [id number] 00:00:00* Test Item Value Reference Range Interpretation Comme nts GLUCOSE (test code = 2217) 241 MG/DL BUN (test code = 2208) 21 MG/DL CREATININE (test code = 2214) 0.83 MG/DL eGFR AMER. (test cod e = 29850) 94 ML/MIN/1.73 eGFR NON- AMER. (test code = 82552) 81 ML/MIN/1.73 CALC BUN/CREAT (test code = 2235) 25 RATIO SODIUM (test code = 2231) 140 MEQ/L POTASSIUM (test code = 2228) 4.0 MEQ/L CHLORIDE (test code = 2215) 99 MEQ/L CARBON DIOXIDE (test code = 2206) 28 MEQ/L CALCIUM (test code = 2209) 10.0 MG/DL PROTEIN, TOTAL (test code = 2229) 7.6 G/DL ALBUMIN (test code = 2201) 4.7 G/DL CALC GLOBULIN (test code = 2240) 2.9 G/DL CALC A/G RATIO (test code = 2234) 1.6 RATIO BILIRUBIN, TOTAL (test code = 2207) 0.3 MG/DL ALKALINE PHOSPHATASE (test code = 2204) 121 U/L AST (test code = 2218) 13 U/L ALT (test code = 2219) 14 U/L LIPID [id number] 00:00:00* Test Item Value Reference Range Interpretation Comme nts CHOLESTEROL (test code = 2210) 255 MG/DL TRIGLYCERIDES (test code = 2232) 116 MG/DL HDL CHOLESTEROL (test code = 2220) 75 MG/DL CALC LDL CHOL (test code = 2237) 157 MG/DL RISK RATIO LDL/HDL (test cod e = 2238) 2.09 RATIO LIPID [id number] 00:00:00* Test Item Value Reference Range Interpretation Comme nts CHOLESTEROL (test code = 2210) 255 MG/DL TRIGLYCERIDES (test code = 2232) 116 MG/DL HDL CHOLESTEROL (test code = 2220) 75 MG/DL CALC LDL CHOL (test code = 2237) 157 MG/DL RISK RATIO LDL/HDL (test cod e = 2238) 2.09 RATIO THYROID II PROFILE (T3U, T4, T7, TSH)2017-04-28 00:00:00* Test Item Value Reference Range Interpretation Comme nts T3 UPTAKE (test code = 2817) 32.8 % T4 (THYROXINE) (test code = 2819) 7.1 UG/DL CALCULATED T7 (FTI) (test co de = 2820) 2.33 TSH (test code = 2821) 0.892 UIU/ML THYROID II PROFILE (T3U, T4, T7, TSH)2017-04-28 00:00:00* Test Item Value Reference Range Interpretation Comme nts T3 UPTAKE (test code = 2817) 32.8 % T4 (THYROXINE) (test code = 2819) 7.1 UG/DL CALCULATED T7 (FTI) (test co de = 2820) 2.33 TSH (test code = 2821) 0.892 UIU/ML HEMOGLOBIN [id number] 00:00:00* Test Item Value Reference Range Interpretation Comme nts HEMOGLOBIN A1c (test code = 64648) 13.9 % HEMOGLOBIN [id number] 00:00:00* Test Item Value Reference Range Interpretation Comme nts HEMOGLOBIN A1c (test code = 04611) 13.9 % HEMOGLOBIN [id number] 00:00:00* Test Item Value Reference Range Interpretation Comme nts HEMOGLOBIN A1c (test code = 44854) 13.9 % CBC W/AUTO [id number] 00:00:00* Test Item Value Reference Range Interpretation Comme nts WBC (test code = 1001) 9.3 K/UL [...] code = 1015) 272 K/UL CBC W/AUTO [id number] 00:00:00* Test Item Value Reference Range Interpretation Comme nts WBC (test code = 1001) 9.3 K/UL [...] code = 1015) 272 K/UL CBC W/AUTO [id number] 00:00:00* Test Item Value Reference Range Interpretation Comme nts WBC (test code = 1001) 9.3 K/UL [...] code = 1015) 272 K/UL COMPREHENSIVE METABOLIC [id number] 00:00:00* Test Item Value Reference Range Interpretation Comme nts GLUCOSE (test code = 2217) 241 MG/DL BUN (test code = 2208) 21 MG/DL CREATININE (test code = 2214) 0.83 MG/DL eGFR AMER. (test cod e = 59529) 94 ML/MIN/1.73 eGFR NON- AMER. (test code = 35160) 81 ML/MIN/1.73 CALC BUN/CREAT (test code = 2235) 25 RATIO SODIUM (test code = 2231) 140 MEQ/L POTASSIUM (test code = 2228) 4.0 MEQ/L CHLORIDE (test code = 2215) 99 MEQ/L CARBON DIOXIDE (test code = 2206) 28 MEQ/L CALCIUM (test code = 2209) 10.0 MG/DL PROTEIN, TOTAL (test code = 2229) 7.6 G/DL ALBUMIN (test code = 2201) 4.7 G/DL CALC GLOBULIN (test code = 2240) 2.9 G/DL CALC A/G RATIO (test code = 2234) 1.6 RATIO BILIRUBIN, TOTAL (test code = 2207) 0.3 MG/DL ALKALINE PHOSPHATASE (test code = 2204) 121 U/L AST (test code = 2218) 13 U/L ALT (test code = 2219) 14 U/L COMPREHENSIVE METABOLIC [id number] 00:00:00* Test Item Value Reference Range Interpretation Comme nts GLUCOSE (test code = 2217) 241 MG/DL BUN (test code = 2208) 21 MG/DL CREATININE (test code = 2214) 0.83 MG/DL eGFR AMER. (test cod e = 88312) 94 ML/MIN/1.73 eGFR NON- AMER. (test code = 99246) 81 ML/MIN/1.73 CALC BUN/CREAT (test code = 2235) 25 RATIO SODIUM (test code = 2231) 140 MEQ/L POTASSIUM (test code = 2228) 4.0 MEQ/L CHLORIDE (test code = 2215) 99 MEQ/L CARBON DIOXIDE (test code = 2206) 28 MEQ/L CALCIUM (test code = 2209) 10.0 MG/DL PROTEIN, TOTAL (test code = 2229) 7.6 G/DL ALBUMIN (test code = 2201) 4.7 G/DL CALC GLOBULIN (test code = 2240) 2.9 G/DL CALC A/G RATIO (test code = 2234) 1.6 RATIO BILIRUBIN, TOTAL (test code = 2207) 0.3 MG/DL ALKALINE PHOSPHATASE (test code = 2204) 121 U/L AST (test code = 2218) 13 U/L ALT (test code = 2219) 14 U/L LIPID [id number] 00:00:00* Test Item Value Reference Range Interpretation Comme nts CHOLESTEROL (test code = 2210) 255 MG/DL TRIGLYCERIDES (test code = 2232) 116 MG/DL HDL CHOLESTEROL (test code = 2220) 75 MG/DL CALC LDL CHOL (test code = 2237) 157 MG/DL RISK RATIO LDL/HDL (test cod e = 2238) 2.09 RATIO LIPID [id number] 00:00:00* Test Item Value Reference Range Interpretation Comme nts CHOLESTEROL (test code = 2210) 255 MG/DL TRIGLYCERIDES (test code = 2232) 116 MG/DL HDL CHOLESTEROL (test code = 2220) 75 MG/DL CALC LDL CHOL (test code = 2237) 157 MG/DL RISK RATIO LDL/HDL (test cod e = 2238) 2.09 RATIO THYROID II PROFILE (T3U, T4, T7, TSH)2017-04-28 00:00:00* Test Item Value Reference Range Interpretation Comme nts T3 UPTAKE (test code = 2817) 32.8 % T4 (THYROXINE) (test code = 2819) 7.1 UG/DL CALCULATED T7 (FTI) (test co de = 2820) 2.33 TSH (test code = 2821) 0.892 UIU/ML THYROID II PROFILE (T3U, T4, T7, TSH)2017-04-28 00:00:00* Test Item Value Reference Range Interpretation Comme nts T3 UPTAKE (test code = 2817) 32.8 % T4 (THYROXINE) (test code = 2819) 7.1 UG/DL CALCULATED T7 (FTI) (test co de = 2820) 2.33 TSH (test code = 2821) 0.892 UIU/ML HEMOGLOBIN [id number] 00:00:00* Test Item Value Reference Range Interpretation Comme nts HEMOGLOBIN A1c (test code = 69299) 13.9 % HEMOGLOBIN [id number] 00:00:00* Test Item Value Reference Range Interpretation Comme nts HEMOGLOBIN A1c (test code = 90407) 13.9 %
--- NOTE | 2023-10-15 15:10 | RAD REPORT ---
EXAM DESCRIPTION: CT - Head Brain Wo Cont - 10/15/2023 2:49 pm CLINICAL HISTORY: Dizziness COMPARISON: 2020 TECHNIQUE: Computed axial tomography of the head was obtained. IV contrast was not requested. All CT scans are performed using dose optimization technique as appropriate and may include automated exposure control or mA/KV adjustment according to patient size. FINDINGS: An intracranial bleed is not seen The ventricles are normal in caliber No significant hypodense areas within the brain visualized No extra-axial fluid collection is noted. Fluid within the sinuses/ mastoids is not seen IMPRESSION: No acute intracranial abnormality is seen If patient's symptoms persist MRI of the brain would be recommended
--- NOTE | 2023-10-15 15:56 | RAD REPORT ---
EXAM DESCRIPTION: [facility] Single View10/15/2023 3:36 pm CLINICAL HISTORY: Chest pain COMPARISON: March 2023 FINDINGS: The lungs appear clear of acute infiltrate. The heart is normal size IMPRESSION: No acute abnormalities displayed
[2023-10-15 18:02] LABS: Absolute Lymphocytes (CBC) 2.5 K/uL (0.7-4.9); Hematocrit 32.5 % (36.0-45.0); Lymphocytes % 26.6 % (15.3-44.8); MCV 85.8 fL (80-100); MPV 10.4 fL (7.6-11.3); Platelets 221 thou/uL (152-406); RBC Red Blood Cell Count 3.79 M/uL (3.86-4.86)
[2023-10-15] MEDS ORDERED: NA CHLORIDE 0.9% 1,000 ML ONE (18:06)
[2023-10-15 18:17] LABS: Specific Gravity 1.024 (1.005-1.030); Urine Bacteria 20-50 /HPF (<20); Urine Bilirubin NEGATIVE (Negative); Urine Blood Negative (Negative); Urine Clarity Turbid (Clear); Urine Color Light-Yellow (Yellow); Urine Crystals Unidentified Few /HPF (None Seen); Urine Glucose 4+ (Over) (Negative); Urine Mucus Slight /HPF (None Seen); Urine Protein 1+ (Negative); Urine RBC <5 /HPF (None Seen); Urine Urobilinogen Normal (Normal)
[2023-10-15 18:25] LABS: ALT/SGPT 25 U/L (13-56); AST/SGOT 11 U/L (15-37); Albumin 3.5 g/dL (3.4-5.0); Alkaline Phosphatase 128 U/L (45-117); BUN Blood Urea Nitrogen 59 mg/dL (7-18); Bicarbonate 27 mEq/L (21-32); Bilirubin Total 0.2 mg/dL (0.2-1.0); Glomerular Filtration Rate 36 ml/min (=/>90); Glucose Level 328 mg/dL (74-106); Magnesium 2.6 mg/dL (1.6-2.4); Potassium 4.5 mEq/L (3.5-5.1); Protein, Total 8.2 g/dL (6.4-8.2); Sodium Level 133 mEq/L (136-145); Troponin High Sensitivity 7.2 pg/mL (<58.9)
[2023-10-15 18:27] LABS: Protime INR 0.89
[2023-10-15 18:31] LABS: SARS-CoV-2 Antigen Rapid Res Negative (Negative)
[2023-10-15 18:43] LABS: Bilirubin Direct < 0.1 mg/dL (0-0.2); Bilirubin Indirect, Calculated ND mg/dL (0.2-0.8)
[2023-10-15] MEDS ORDERED: MECLIZINE HCL 12.5 MG TAB PO ONE (19:00)
--- NOTE | 2023-10-15 19:02 | ER ---
Nurse's Notes [facility] Name: Khris Salazar Age: 57 yrs Sex: Female : 1965 Arrival Date: 10/15/2023 Time: 14:21 Bed 10 Private MD: Diagnosis: Dizziness and giddiness;UTI/ Urinary tract infection, site not specified;Tinnitus, right ear Presentation: 10/15 14:32 Chief complaint: Patient states: dizziness for the last 4 days. Pt also reports that cm10 she is having heaviness around chest, shoulders and neck that happens with movement. Pt also reports nausea. Coronavirus screen: Vaccine status: Patient reports being unvaccinated. Client denies travel out of the [place] in the last 14 days. Ebola Screen: Patient denies travel to an Ebola-affected area in the 21 days before illness onset. No symptoms or risks identified at this time. Initial Sepsis Screen: Does the patient meet any 2 criteria? No. Patient's initial sepsis screen is negative. Does the patient have a suspected source of infection? No. Patient's initial sepsis screen is negative. Risk Assessment: Do you want to hurt yourself or someone else? Patient reports no desire to harm self or others. Onset of symptoms was October 15, 2023. 14:32 Method Of Arrival: Ambulatory cm10 14:32 Acuity: DINO 3 cm10 Triage Assessment: 14:34 General: Appears in no apparent distress. comfortable, Behavior is calm, cooperative. cm10 Pain: Denies pain. Historical: - Allergies: 14:32 No Known Allergies; cm10 - PMHx: 14:32 Diabetes - IDDM; Hypertension; cm10 - Immunization history:: Adult Immunizations unknown. - Social history:: Smoking status: Patient denies any tobacco usage or history of. Screenin:07 [facility] ED Fall Risk Assessment (Adult) History of falling in the last 3 months, hb including since admission No falls in past 3 months (0 pts) Confusion or Disorientation No (0 pts) Intoxicated or Sedated No (0 pts) Impaired Gait No (0 pts) Mobility Assist Device Used No (0 pt) Altered Elimination No (0 pt) Score/Fall Risk Level 0 - 2 = Low Risk Maintained a safe environment, Provided non-skid footwear, Hourly rounding (assess needs \T\ fall precautionary measures) done. Abuse screen: Denies threats or abuse. Nutritional screening: No deficits noted. Tuberculosis screening: No symptoms or risk factors identified. Assessment: 19:06 General: Appears comfortable, well groomed, well developed, well nourished, Behavior is hb calm, cooperative, appropriate for age, Reports dizziness for the last 4 days with nausea. Pain: Denies pain. Neuro: Level of Consciousness is awake, alert, obeys commands, Oriented to person, place, time, situation, Appropriate for age Reports dizziness, since 4 days ago. Cardiovascular: Capillary refill < 3 seconds Patient's skin is warm and dry. Respiratory: Airway is patent Respiratory effort is even, unlabored, Respiratory pattern is regular, symmetrical. GI: Reports nausea. Vital Signs: 14:32 BP 148 / 86; Pulse 102; Resp 18; Temp 98.3(O); Pulse Ox 100% on R/A; Pain 0/10; cm10 17:49 BP 126 / 82; Pulse 78; Resp 14; Pulse Ox 99% on R/A; me1 19:04 BP 148 / 83; Pulse 89; Resp 22; Pulse Ox 100% on R/A; hb 14:32 Pain Scale: Adult cm10 ED Course: 14:23 Patient arrived in ED. rg4 14:24 Yahaira Dewitt PA-C is PHCP. sb4 14:24 Peewee Pal MD is Attending Physician. sb4 14:34 Triage completed. cm10 14:34 Arm band placed on Patient placed in waiting room. cm10 14:49 CT Head Brain wo Cont In Process Unspecified. EDMS 15:38 Chest Single View XRAY In Process Unspecified. EDMS 17:23 Jammie Alcantara, RN is Primary Nurse. me1 17:49 Flu Sent. me1 17:49 SARS RAPID Sent. me1 17:49 Inserted saline lock: 20 gauge in left antecubital area, using aseptic technique. me1 17:49 Basic Metabolic Panel Sent. me1 17:49 CBC with Diff Sent. me1 17:49 Hepatic Function Sent. me1 17:49 Magnesium Sent. me1 17:50 Protime (+inr) Sent. me1 17:50 Ptt, Activated Sent. me1 17:50 Troponin High Sensitivity Sent. me1 17:59 UDS Sent. me1 17:59 Urinalysis w/ reflexes Sent. me1 19:02 Martine Thomson MD is Referral Physician. sb4 19:02 Dominga Mcintosh MD is Referral Physician. sb4 19:07 Patient has correct armband on for positive identification. Placed in gown. Bed in low hb position. Call light in reach. Side rails up X2. Provided Education on: POC. Verbalized understanding. . 19:07 No provider procedures requiring assistance completed. hb 19:30 IV discontinued, intact, bleeding controlled, No redness/swelling at site. Pressure hb dressing applied. Administered Medications: 17:53 Drug: NS 0.9% IV 1000 ml IV at 1 bolus Per protocol; 1000 mL bolus Route: IV; Rate: 1 me1 bolus; Site: left antecubital; 19:29 Follow up: IV Status: Completed infusion hb 19:04 Drug: Meclizine PO 50 mg PO once Route: PO; hb 19:11 Follow up: Response: No adverse reaction hb Medication: 19:30 VIS not applicable for this client. hb Outcome: 19:02 Discharge ordered by MD. sb4 19:30 Discharged to home ambulatory, hb 19:30 Condition: stable 19:30 Discharge instructions given to patient, Instructed on discharge instructions, follow up and referral plans. Demonstrated understanding of instructions, follow-up care, medications, Prescriptions given X 3, 19:31 Patient left the ED. hb Signatures: Dispatcher [employer] EDMS Shelley Jacome RN RN hb Sandra Teresa rg4 Yahaira Dewitt, PA-C PA-C sb4 Janie Cardoza RN RN cm10 Jammie Alcantara RN RN me1 Corrections: (The following items were deleted from the chart) 19:04 14:32 Chief complaint: Patient states: dizziness for the last 4 days. Pt also reports hb that she is having heaviness around chest, shoulders and neck that happens with movement. Pt also reports nausea. cm10
--- NOTE | 2023-10-15 19:02 | EDPHYS ---
Physician Documentation [facility] Name: Khris Salazar Age: 57 yrs Sex: Female : 1965 Arrival Date: 10/15/2023 Time: 14:21 Bed 10 Private MD: ED Physician Peewee Pal HPI: 10/15 14:41 This 57 yrs old Female presents to ER via Ambulatory with complaints of sb4 dizziness, vomiting. 14:45 Patient states that she has been feeling dizzy for about 2 days now with an associated sb4 heaviness in her chest and a few episodes of vomiting. She states that when she stands, she feels off balance. She also reports ringing and decreased hearing in her right ear. She denies any pain. States that she has an appointment with her PCP tomorrow but could not stand the dizziness any longer. Historical: - Allergies: 14:32 No Known Allergies; cm10 - PMHx: 14:32 Diabetes - IDDM; Hypertension; cm10 - Immunization history:: Adult Immunizations unknown. - Social history:: Smoking status: Patient denies any tobacco usage or history of. ROS: 14:45 Constitutional: Negative for fever, chills, and weight loss, sb4 14:45 ENT: Positive for tinnitus, 14:45 Abdomen/GI: Positive for nausea, 14:45 Neuro: Positive for dizziness, 14:45 All other systems are negative, Exam: 14:45 Constitutional: This is a well developed, well nourished patient who is awake, alert, sb4 and in no acute distress. Head/Face: Normocephalic, atraumatic. Eyes: Extra-ocular motions intact. Periorbital areas with no swelling, redness, or edema. Cardiovascular: Regular rate and rhythm with a normal S1 and S2. Respiratory: Lungs have equal breath sounds bilaterally, clear to auscultation and percussion. No rales, rhonchi or wheezes noted. No increased work of breathing, no retractions or nasal flaring. Abdomen/GI: Soft, non-tender, no distension. Skin: Warm, dry with normal turgor. Normal color with no rashes, no lesions, and no evidence of cellulitis. MS/ Extremity: Pulses equal, no cyanosis. Neurovascular intact. Full, normal range of motion. Neuro: Awake and alert, GCS 15, oriented to person, place, time, and situation. Motor strength 5/5 in all extremities. Sensory grossly intact. 14:45 ENT: Exam is negative for acute changes, injury of acute deformity, hemotympanum, TM abnormalities, nasal discharge, Vital Signs: 14:32 BP 148 / 86; Pulse 102; Resp 18; Temp 98.3(O); Pulse Ox 100% on R/A; Pain 0/10; cm10 17:49 BP 126 / 82; Pulse 78; Resp 14; Pulse Ox 99% on R/A; me1 19:04 BP 148 / 83; Pulse 89; Resp 22; Pulse Ox 100% on R/A; hb 14:32 Pain Scale: Adult cm10 MDM: 14:34 Patient medically screened. sb4 14:49 Differential diagnosis: CVA, electrolyte abnormality, hyperglycemia, cholesteatoma, sb4 otitis media, vertigo, eustachian tube dysfunction, Mnire's disease. 19:01 Data reviewed: vital signs, nurses notes, lab test result(s), EKG, radiologic studies, sb4 and as a result, I will discharge patient. Care significantly affected by the following chronic conditions: Diabetes, Hypertension. Counseling: I had a detailed discussion with the patient and/or guardian regarding the historical points, exam findings, and any diagnostic results supporting the discharge/admit diagnosis, lab results, radiology results, the need for outpatient follow up, an ENT specialist, to return to the emergency department if symptoms worsen or persist or if there are any questions or concerns that arise at home. 10/15 14:40 Order name: Basic Metabolic Panel; Complete Time: 18:43 sb4 10/15 14:40 Order name: CBC with Diff; Complete Time: 18:31 sb4 10/15 14:40 Order name: Hepatic Function; Complete Time: 18:43 sb4 10/15 14:40 Order name: Magnesium; Complete Time: 18:43 sb4 10/15 14:40 Order name: Protime (+inr); Complete Time: 18:35 sb4 10/15 14:40 Order name: Ptt, Activated; Complete Time: 18:35 sb4 10/15 14:40 Order name: Troponin High Sensitivity; Complete Time: 18:43 sb4 10/15 14:40 Order name: UDS sb4 10/15 14:40 Order name: Urinalysis w/ reflexes; Complete Time: 18:18 sb4 10/15 14:58 Order name: SARS RAPID; Complete Time: 18:33 sb4 10/15 14:58 Order name: Flu; Complete Time: 18:42 sb4 10/15 14:40 Order name: CT Head Brain wo Cont; Complete Time: 15:16 sb4 10/15 14:40 Order name: Chest Single View XRAY; Complete Time: 15:57 sb4 10/15 14:40 Order name: Cardiac monitoring; Complete Time: 17:13 sb4 10/15 14:40 Order name: EKG - Nurse/Tech; Complete Time: 19:11 sb4 10/15 14:40 Order name: IV Saline Lock; Complete Time: 17:49 sb4 10/15 14:40 Order name: Labs collected and sent; Complete Time: 17:49 sb4 10/15 14:40 Order name: O2 Per Protocol; Complete Time: 17:13 sb4 10/15 14:40 Order name: O2 Sat Monitoring; Complete Time: 17:13 sb4 10/15 14:40 Order name: Orthostatics; Complete Time: 19:11 sb4 Administered Medications: 17:53 Drug: NS 0.9% IV 1000 ml IV at 1 bolus Per protocol; 1000 mL bolus Route: IV; Rate: 1 me1 bolus; Site: left antecubital; 19:29 Follow up: IV Status: Completed infusion hb 19:04 Drug: Meclizine PO 50 mg PO once Route: PO; hb 19:11 Follow up: Response: No adverse reaction hb Disposition: 19:54 Co-signature as Attending Physician, Peewee Pal MD I reviewed the patient's care rn provided by the Advanced Practice Provider and agree with the diagnosis and treatment plan. Disposition Summary: 10/15/23 19:02 Discharge Ordered Notes: Location: Home sb4 Problem: new sb4 Symptoms: have improved sb4 Condition: Stable sb4 Diagnosis - Dizziness and giddiness sb4 - UTI/ Urinary tract infection, site not specified sb4 - Tinnitus, right ear sb4 Followup: sb4 - With: Martine Thomson MD - When: As needed - Reason: Further diagnostic work-up, Recheck today's complaints, Re-evaluation by your physician Followup: sb4 - With: Dominga Mcintosh MD - When: As needed - Reason: Further diagnostic work-up, Recheck today's complaints, Re-evaluation by your physician Discharge Instructions: - Discharge Summary Sheet sb4 - Dizziness sb4 - Tinnitus sb4 - Urinary Tract Infection, Adult, [id number] sb4 Forms: - Medication Reconciliation Form sb4 - Thank You Letter sb4 - Antibiotic Education sb4 - Prescription Opioid Use sb4 - Patient Portal Instructions sb4 - Leadership Thank You Letter sb4 Prescriptions: - Diflucan 150 mg Oral Tablet - take 1 tablet ORAL route one time for 1 day; 1 tablet; Refills: 0, Product sb4 Selection Permitted - Meclizine 25 mg Oral Tablet - take 1 tablet ORAL route every 8 hours As needed; 30 tablet; Refills: 0, sb4 Product Selection Permitted - Macrobid 100 mg Oral Capsule - take 1 capsule ORAL route every 12 hours for 7 days; 14 capsule; Refills: 0, sb4 Product Selection Permitted Signatures: Dispatcher [employer] Peewee Herrera MD MD rn Baxter, Heather RN RN Yahaira Mata PA-C PA-C sb4 Janie Cardoza RN RN cm10 Jammie Alcantara RN RN me1
[2023-10-15 19:33] LABS: Barbiturates NEGATIVE (NEGATIVE); Benzodiazepines NEGATIVE (NEGATIVE); Cocaine NEGATIVE (NEGATIVE); METHAMPHETAM NEGATIVE (NEGATIVE); Methadone NEGATIVE (NEGATIVE); Opiates NEGATIVE (NEGATIVE); Phencyclidine NEGATIVE (NEGATIVE); THC Cannibis NEGATIVE (NEGATIVE)
[2023-10-15 20:06] VITALS: TEMP 98.3
[2023-10-15 20:08] VITALS: BP 148/83; O2SAT 100
== END 2023-10-15 19:31 | disposition home or self-care (01) ==
LOC: ER 14:21
DX: N39.0 Urinary tract infection, site not specified (principal); H93.19 Tinnitus, unspecified ear
CPT/HCPCS: 36415; 70450; 71045; 80048; 80076; 80307; 81001; 83735; 84484; 85025; 85610; 85730; 87804; 87811; 96360; 96361; 99284; J7030; J8597

== ENCOUNTER 2024-02-26 18:15 | Inpatient (IN) | payer OTHER ==
--- OUTSIDE RECORDS SUMMARY | 2024-02-26 18:22 | XMS REPORT | Continuity of Care Document ---
Author Name Unknown Address [address] [facility] José Miguel. [address] [place] [address] [facility] thconnect Address [address] [facility]. [address] [place] [address] Care Team Providers Care Senior Planning Analyst Name Role Phone Tigist Damon Primary Care Physician [phone] Tigist Damon Attending Clinician Unavail able JASSON STARK Attending Clinician Unavailab IRENE Pina Attending Clinician Unavailable Irene Waggoner DO Attending Clinician [phone] Doctor Unassigned, [place] Attending Clinician U navailHEATHER Benitez Attending Clinician Unavailable Heather Houston MD Attending Clinician [phone] Felipa Monson LVN Attending Clinician [phone] GUZMAN SUTTON Attending Clinician Unavailable Serenity Doe NP Attending Clinician [phone] Sandeep Shepherd MD Attending Clinician [phone] Guzman Sutton MD Attending Clinician [phone] Wiliam Gutierres APN Attending Clinician + [phone] FLYNN ZARATE Attending Clinician Unavailable GUZMAN SUTTON Admitting Clinician Unavailable Guzman Sutton MD Admitting Clinician [phone] Payers Payer Name Policy Type Policy Number Effective Date Expirati on Date Source [employer] HMO 53 [id number] 2023 00:00:00 [facility] [employer] MP 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 ON 9 [id number] 2023 00:00:00 [employer] 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 [id number] 2023 00:00:00 Problems Condition Name Condition Details Condition Category Status Onset Date Resolution Date Last Treatment Date Treating Clinician Comments Source Infected pilonidal cyst Infected pilonidal cyst Disease Active 2020-11 00:00: 00 [facility] ZINA (acute kidney injury) ZINA (acute kidney injury) Disease Active 2020-11 00:00: 00 [facility] Hypokalemi a Hypokalemi a Disease Active 05-17 00:00: 00 [facility] Abscess Abscess Disease Active 05-11 00:00: 00 [facility] [id number] 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 Problem [facility] [id number] Mixed hyperlipid emia Problem [facility] [id number] Stage 3a chronic kidney disease (CKD) Problem [facility] [id number] Blindness of both eyes Problem [facility] [id number] Gastroesop hageal reflux disease without esophagiti s Problem [facility] 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 Problem [facility] [id number] Other obesity due to excess calories Problem [facility] [id number] Body mass index [BMI] 30.0-30.9, adult Problem [facility] [id number] Overweight Problem [facility] [id number] Essential hypertensi on Problem [facility] GERD (gastroeso phageal reflux disease) GERD (gastroeso phageal reflux disease) Disease Active [facility] Blurred vision Blurred vision Disease Active [facility] Allergies, Adverse Reactions, Alerts Allergy Name Allergy Type Status Severity Reaction(s) Onset Date Inactive Date Treating Clinician Comments Source atorvast atin atorvast atin Active anaphylaxis [facility] NO KNOWN ALLERGIE S Drug Class Active [facility] Social History Social Habit Start Date Stop Date Quantity Comments Source Sexual orientation [facility] History SDOH Alcohol Frequency [facility] History SDOH Alcohol Std Drinks [facility] History SDOH Alcohol Binge [facility] Exposure to SARS-CoV-2 (event) Not sure [facility] History of Tobacco Use [facility] Sex Assigned At [facility] Alcohol intake 2022-05-16 00:00:00 2022-05-16 00:00:00 0 /d [facility] History of Social function 2021-11-14 00:00:00 2021-11-14 00:00:00 [facility] Cigarettes smoked current (pack per day) - Reported 2016-05-29 00:00:00 2016-05-29 00:00:00 [facility] Alcohol Comment 2016-05-29 00:00:00 2016-05-29 00:00:00 occasionally [facility] Tobacco use and exposure 2016-05-29 00:00:00 2016-05-29 00:00:00 Former smokeless tobacco user [facility] Smoking Status Start Date Stop Date Source Never Smoker [facility] Ex-smoker 2016-05-29 00:00:00 2016-05-29 00:00:00 [facility] Medications Ordered Medication Name Filled Medication Name Start Date Stop Date Current Medication? Ordering Clinician Indication Dosage Frequency Signature (SIG) Comments Components Source Insulin Detemir 100 UNIT/ML Insulin Detemir 100 UNIT/ML 01-24 00:00: 00 No BID Insulin Detemir 100 UNIT/ML Ozempic (0.25 or 0.5 MG/DOSE) 2 MG/3ML Ozempic (0.25 or 0.5 MG/DOSE) 2 MG/3ML 01-24 00:00: 00 No Ozempic (0.25 or 0.5 MG/DOSE) 2 MG/3ML Fish Oil Fish Oil 2024-0 3-22 00:00: 00 No 5{ml_as _needed } 6xD Fish Oil Ozempic (0.25 or 0.5 MG/DOSE) 2 MG/3ML Ozempic (0.25 or 0.5 MG/DOSE) 2 MG/3ML 4-0 3-22 00:00: 00 No Ozempic (0.25 or 0.5 MG/DOSE) 2 MG/3ML Pen Macy 32G X 6 MM Pen Macy 32G X 6 MM 4-0 3-21 00:00: 00 No Pen Macy 32G X 6 MM Pen Macy 32G X 6 MM Pen Macy 32G X 6 MM 2023-0 3-21 00:00: 00 No Pen Macy 32G X 6 MM Pen Macy 32G X 6 MM Pen Macy 32G X 6 MM 2023-0 3-21 00:00: 00 No Pen Macy 32G X 6 MM Tamiflu 75 MG Tamiflu 75 MG 4-0 3-08 00:00: 00 No 1{capsu le} BID Tamiflu 75 MG Nirmatrelvi r&Ritonavir 150/100 10 x 150 MG & 10 x 100MG Nirmatrelvi r&Ritonavir 150/100 10 x 150 MG & 10 x 100MG 2024-0 3-08 00:00: 00 No BID Nirmatrelv ir&Ritonav ir 150/100 10 x 150 MG & 10 x 100MG Tamiflu 75 MG Tamiflu 75 MG 4-0 3-08 00:00: 00 No 1{capsu le} BID Tamiflu 75 MG Nirmatrelvi r&Ritonavir 150/100 10 x 150 MG & 10 x 100MG Nirmatrelvi r&Ritonavir 150/100 10 x 150 MG & 10 x 100MG 2024-0 3-08 00:00: 00 No BID Nirmatrelv ir&Ritonav ir 150/100 10 x 150 MG & 10 x 100MG Nirmatrelvi r&Ritonavir 150/100 10 x 150 MG & 10 x 100MG Nirmatrelvi r&Ritonavir 150/100 10 x 150 MG & 10 x 100MG 2024-0 3-08 00:00: 00 No BID Nirmatrelv ir&Ritonav ir 150/100 10 x 150 MG & 10 x 100MG Tamiflu 75 MG Tamiflu 75 MG 2024-0 3-08 00:00: 00 No 1{capsu le} BID Tamiflu 75 MG Nirmatrelvi r&Ritonavir 150/100 10 x 150 MG & 10 x 100MG Nirmatrelvi r&Ritonavir 150/100 10 x 150 MG & 10 x 100MG 2024-0 3-08 00:00: 00 No BID Nirmatrelv ir&Ritonav ir 150/100 10 x 150 MG & 10 x 100MG Tamiflu 75 MG Tamiflu 75 MG 2024-0 3-08 00:00: 00 No 1{capsu le} BID Tamiflu 75 MG Zetia 10 MG Zetia 10 MG 2024-0 2-22 00:00: 00 No 1{table t} QD Zetia 10 MG Pioglitazon e HCl 15 MG Pioglitazon e HCl 15 MG 4-0 2-22 00:00: 00 No 1{table t} QD Pioglitazo ne HCl 15 MG Zetia 10 MG Zetia 10 MG 4-0 2-22 00:00: 00 No 1{table t} QD Zetia 10 MG Pioglitazon e HCl 15 MG Pioglitazon e HCl 15 MG 4-0 2-22 00:00: 00 No 1{table t} QD Pioglitazo ne HCl 15 MG Zetia 10 MG Zetia 10 MG 4-0 2-22 00:00: 00 No 1{table t} QD Zetia 10 MG Pioglitazon e HCl 15 MG Pioglitazon e HCl 15 MG 4-0 2-22 00:00: 00 No 1{table t} QD Pioglitazo ne HCl 15 MG Pioglitazon e HCl 15 MG Pioglitazon e HCl 15 MG 2024-0 2-22 00:00: 00 No 1{table t} QD Pioglitazo ne HCl 15 MG Zetia 10 MG Zetia 10 MG 2024-0 2-22 00:00: 00 No 1{table t} QD Zetia 10 MG Pioglitazon e HCl 15 MG Pioglitazon e HCl 15 MG 2024-0 2-22 00:00: 00 No 1{table t} QD Pioglitazo ne HCl 15 MG Zetia 10 MG Zetia 10 MG 2024-0 2-22 00:00: 00 No 1{table t} QD Zetia 10 MG INJECT 10 UNITS TWICE A DAY 2021-11 [...] 9-16 00:00: 00 No Dose Unknown 0 8-16 00:00: 00 No Dose Unknown 0 8-16 00:00: 00 No Dose Unknown 0 8-16 00:00: 00 No Dose Unknown 0 8-16 00:00: 00 No amlodipine 10 mg tablet 0 7-15 00:00: 00 No 1mg amlodipine 10 mg tablet 0 7-15 00:00: 00 No 1mg Dose Unknown 0 7-15 00:00: 00 No amlodipine 10 mg tablet 0 7-15 00:00: 00 No 1mg losartan 100 mg tablet 0 5-18 00:00: 00 No 1mg losartan 100 mg tablet 0 5-18 00:00: 00 No 1mg losartan 100 mg tablet 0 5-18 00:00: 00 No 1mg losartan 100 [...] Dose Unknown 2022-0 2-21 00:00: 00 No Levemir U-100 Insulin 100 unit/mL subcutaneou s solution 2022-0 2-19 00:00: 00 No unit/mL hydrochloro thiazide 12.5 mg tablet 2022-0 2-19 00:00: 00 No 1mg amlodipine 10 mg tablet 0 2-19 00:00: 00 No 1mg Dose Unknown 0 2-19 00:00: 00 No Levemir U-100 Insulin 100 unit/mL subcutaneou s solution 0 2-19 00:00: 00 No unit/mL hydrochloro thiazide 12.5 mg tablet 2021-0 2-19 00:00: 00 No 1mg amlodipine 10 mg tablet 0 2-19 00:00: 00 No 1mg Dose Unknown 0 2-19 00:00: 00 No Levemir U-100 Insulin 100 unit/mL subcutaneou s solution 0 2- 00:00: 00 No unit/mL hydrochloro thiazide 12.5 mg tablet 0 2-19 00:00: 00 No 1mg amlodipine 10 mg tablet 0 2-19 00:00: 00 No 1mg Dose Unknown 0 2-19 00:00: 00 No Dose Unknown 0 2-19 00:00: 00 No hydrochloro thiazide 12.5 mg tablet 0 2-19 00:00: 00 No 1mg amlodipine 10 mg tablet 0 2-19 00:00: 00 No 1mg Dose Unknown 0 2- 00:00: 00 No Levemir U-100 Insulin 100 unit/mL subcutaneou s solution 0 1- 00:00: 00 No unit/mL Levemir U-100 Insulin 100 unit/mL subcutaneou s solution 0 1- 00:00: 00 No unit/mL Levemir U-100 Insulin 100 unit/mL subcutaneou s solution 2021-0 1- 00:00: 00 No unit/mL Levemir U-100 Insulin 100 unit/mL subcutaneou s solution 0 - 00:00: 00 No unit/mL Dose Unknown 0 1- 00:00: 00 No Dose Unknown 0 1- 00:00: 00 No Dose Unknown 0 1- 00:00: 00 No Dose Unknown 0 - 00:00: 00 No Dose Unknown 11-30 00:00: 00 No Dose Unknown 11-30 00:00: 00 No Dose Unknown 11-30 00:00: 00 No Dose Unknown 11-30 00:00: 00 No Dose Unknown 11-30 00:00: 00 No Dose Unknown 11-30 00:00: 00 No Dose Unknown 11-30 00:00: 00 No Dose Unknown 11-30 00:00: 00 No Dose Unknown 11-16 00:00: 00 No losartan [...] 11-10 00:00: 00 12-17 05:59 :00 No [id number] Take 1 capsule by mouth weekly for 6 doses. [facility] esomeprazol e 40 mg capsule 11-07 02:30: 05 Yes 40mg Take 40 mg by mouth daily with breakfast. [facility] insulin detemir U-100 (LEVEMIR U-100 INSULIN) 100 unit/mL injection 11-07 02:30: 05 Yes inject under the skin. [facility] insulin regular, human (NOVOLIN R INJECTION) 11-07 02:30: 05 Yes Inject as directed. [facility] ferrous sulfate 325 mg (65 mg iron) tablet 11-06 00:00: 00 12-07 05:59 :00 No [id number] 325mg Take 1 tablet by mouth daily for 30 days. [facility] magnesium oxide 400 mg (241.3 mg magnesium) tablet 11-05 00:00: 00 11-21 05:59 :00 No [id number] 400mg Take 1 tablet by mouth daily for 15 days. [facility] Dose Unknown 2020-11 00:00: 00 No Dose [...] mg capsule 2020-11 00:00: 00 No 1mg methimazole 5 mg [...] 00 No 1mg methimazole 5 mg tablet 6 00:00: 00 No 1mg methimazole 5 mg tablet 04-21 00:00: 00 No 1mg methimazole 5 mg tablet 6 00:00: 00 No 1mg Macrobid 100 mg capsule 6-14 00:00: 00 No 1mg Macrobid 100 mg capsule 614 00:00: 00 No 1mg Macrobid 100 mg capsule 6-14 00:00: 00 No 1mg Macrobid 100 mg capsule 6-14 00:00: 00 No 1mg hydrochloro thiazide 12.5 mg tablet -17 00:00: 00 No 1mg hydrochloro thiazide 12.5 mg tablet -17 00:00: 00 No 1mg hydrochloro thiazide 12.5 mg tablet -17 00:00: 00 No 1mg hydrochloro thiazide 12.5 mg tablet -17 00:00: 00 No 1mg Levemir U-100 Insulin 100 unit/mL subcutaneou s solution 4-10 00:00: 00 No 30unit/ mL Novolin R Regular U-100 Insulin 100 unit/mL injection solution 4-10 00:00: 00 No 1unit/m L losartan 100 mg tablet 4-10 00:00: 00 No 1mg Levemir U-100 Insulin 100 unit/mL subcutaneou s solution 0 4-10 00:00: 00 No 30unit/ mL Novolin R Regular U-100 Insulin 100 unit/mL injection solution 4-10 00:00: 00 No 1unit/m L losartan 100 mg tablet 4-10 00:00: 00 No 1mg Levemir U-100 Insulin 100 unit/mL subcutaneou s solution 4- 00:00: 00 No 30unit/ mL Novolin R Regular U-100 Insulin 100 unit/mL injection solution 4-10 00:00: 00 No 1unit/m L losartan 100 mg tablet 4-10 00:00: 00 No 1mg Levemir U-100 Insulin 100 unit/mL subcutaneou s solution 4-10 00:00: 00 No 30unit/ mL Novolin R Regular U-100 Insulin 100 unit/mL injection solution 4-10 00:00: 00 No 1unit/m L losartan 100 mg tablet 0 4- 00:00: 00 No 1mg losartan 50 [...] hours as needed for Pain (scale 4-6). [facility] Novolin 70/30 U-100 Insulin 100 unit/mL subcutaneou [...] solution 05-04 00:00: 00 No 10unit/ mL lovastatin 20 mg tablet 04-29 00:00: 00 [...] 20mg Take 1 capsule by mouth daily. [facility] Losartan Potassium 100 MG Losartan Potassium 100 MG No 1{table t} QD Losartan Potassium 100 MG Esomeprazol e Magnesium 20 MG Esomeprazol e Magnesium 20 MG No 1{capsu le} QD Esomeprazo le Magnesium 20 MG Trulicity 0.75 MG/0.5ML Trulicity 0.75 MG/0.5ML No Trulicity 0.75 MG/0.5ML NovoLOG FlexPen 100 UNIT/ML NovoLOG FlexPen 100 UNIT/ML No NovoLOG FlexPen 100 UNIT/ML amLODIPine Besylate 10 MG amLODIPine Besylate 10 MG No 1{table t} BID amLODIPine Besylate 10 MG Atorvastati n Calcium 40 MG Atorvastati n Calcium 40 MG No 1{table t} QD Atorvastat in Calcium 40 MG Levemir FlexPen 100 UNIT/ML Levemir FlexPen 100 UNIT/ML No BID Levemir FlexPen 100 UNIT/ML Dexcom G7 Sensor - Dexcom G7 Sensor - No Dexcom G7 Sensor - Dexcom G7 Business Department Chair - Dexcom G7 Business Department Chair - No Dexcom G7 Business Department Chair - Ozempic (0.25 or 0.5 MG/DOSE) 2 MG/3ML Ozempic (0.25 or 0.5 MG/DOSE) 2 MG/3ML No Ozempic (0.25 or 0.5 MG/DOSE) 2 MG/3ML Losartan Potassium 100 MG Losartan Potassium 100 MG No 1{table t} QD Losartan Potassium 100 MG Esomeprazol e Magnesium 20 MG Esomeprazol e Magnesium 20 MG No 1{capsu le} QD Esomeprazo le Magnesium 20 MG Trulicity 0.75 MG/0.5ML Trulicity 0.75 MG/0.5ML No Trulicity 0.75 MG/0.5ML NovoLOG FlexPen 100 UNIT/ML NovoLOG FlexPen 100 UNIT/ML No NovoLOG FlexPen 100 UNIT/ML amLODIPine Besylate 10 MG amLODIPine Besylate 10 MG No 1{table t} BID amLODIPine Besylate 10 MG Atorvastati n Calcium 40 MG Atorvastati n Calcium 40 MG No 1{table t} QD Atorvastat in Calcium 40 MG Levemir FlexPen 100 UNIT/ML Levemir FlexPen 100 UNIT/ML No BID Levemir FlexPen 100 UNIT/ML Dexcom G7 Sensor - Dexcom G7 Sensor - No Dexcom G7 Sensor - Dexcom G7 Business Department Chair - Dexcom G7 Business Department Chair - No Dexcom G7 Business Department Chair - Ozempic (0.25 or 0.5 MG/DOSE) 2 MG/3ML Ozempic (0.25 or 0.5 MG/DOSE) 2 MG/3ML No Ozempic (0.25 or 0.5 MG/DOSE) 2 MG/3ML Losartan Potassium 100 MG Losartan Potassium 100 MG No 1{table t} QD Losartan Potassium 100 MG Esomeprazol e Magnesium 20 MG Esomeprazol e Magnesium 20 MG No 1{capsu le} QD Esomeprazo le Magnesium 20 MG Trulicity 0.75 MG/0.5ML Trulicity 0.75 MG/0.5ML No Trulicity 0.75 MG/0.5ML NovoLOG FlexPen 100 UNIT/ML NovoLOG FlexPen 100 UNIT/ML No NovoLOG FlexPen 100 UNIT/ML amLODIPine Besylate 10 MG amLODIPine Besylate 10 MG No 1{table t} BID amLODIPine Besylate 10 MG Atorvastati n Calcium 40 MG Atorvastati n Calcium 40 MG No 1{table t} QD Atorvastat in Calcium 40 MG Levemir FlexPen 100 UNIT/ML Levemir FlexPen 100 UNIT/ML No BID Levemir FlexPen 100 UNIT/ML Dexcom G7 Sensor - Dexcom G7 Sensor - No Dexcom G7 Sensor - Dexcom G7 Business Department Chair - Dexcom G7 Business Department Chair - No Dexcom G7 Business Department Chair - Ozempic (0.25 or 0.5 MG/DOSE) 2 MG/3ML Ozempic (0.25 or 0.5 MG/DOSE) 2 MG/3ML No Ozempic (0.25 or 0.5 MG/DOSE) 2 MG/3ML Losartan Potassium 100 MG Losartan Potassium 100 MG No 1{table t} QD Losartan Potassium 100 MG Esomeprazol e Magnesium 20 MG Esomeprazol e Magnesium 20 MG No 1{capsu le} QD Esomeprazo le Magnesium 20 MG Trulicity 0.75 MG/0.5ML Trulicity 0.75 MG/0.5ML No Trulicity 0.75 MG/0.5ML NovoLOG FlexPen 100 UNIT/ML NovoLOG FlexPen 100 UNIT/ML No NovoLOG FlexPen 100 UNIT/ML amLODIPine Besylate 10 MG amLODIPine Besylate 10 MG No 1{table t} BID amLODIPine Besylate 10 MG Atorvastati n Calcium 40 MG Atorvastati n Calcium 40 MG No 1{table t} QD Atorvastat in Calcium 40 MG Levemir FlexPen 100 UNIT/ML Levemir FlexPen 100 UNIT/ML No BID Levemir FlexPen 100 UNIT/ML Dexcom G7 Sensor - Dexcom G7 Sensor - No Dexcom G7 Sensor - Dexcom G7 Business Department Chair - Dexcom G7 Business Department Chair - No Dexcom G7 Business Department Chair - Ozempic (0.25 or 0.5 MG/DOSE) 2 MG/3ML Ozempic (0.25 or 0.5 MG/DOSE) 2 MG/3ML No Ozempic (0.25 or 0.5 MG/DOSE) 2 MG/3ML Losartan Potassium 100 MG Losartan Potassium 100 MG No 1{table t} QD Losartan Potassium 100 MG Esomeprazol e Magnesium 20 MG Esomeprazol e Magnesium 20 MG No 1{capsu le} QD Esomeprazo le Magnesium 20 MG Trulicity 0.75 MG/0.5ML Trulicity 0.75 MG/0.5ML No Trulicity 0.75 MG/0.5ML NovoLOG FlexPen 100 UNIT/ML NovoLOG FlexPen 100 UNIT/ML No NovoLOG FlexPen 100 UNIT/ML amLODIPine Besylate 10 MG amLODIPine Besylate 10 MG No 1{table t} BID amLODIPine Besylate 10 MG Atorvastati n Calcium 40 MG Atorvastati n Calcium 40 MG No 1{table t} QD Atorvastat in Calcium 40 MG Trulicity 0.75 MG/0.5ML Trulicity 0.75 MG/0.5ML No Trulicity 0.75 MG/0.5ML amLODIPine Besylate 10 MG amLODIPine Besylate 10 MG No amLODIPine Besylate 10 MG Esomeprazol e Magnesium 20 MG Esomeprazol e Magnesium 20 MG No 1{capsu le} QD Esomeprazo le Magnesium 20 MG Vitamin E Vitamin E No Vitamin E Levemir FlexPen 100 UNIT/ML Levemir FlexPen 100 UNIT/ML No BID Levemir FlexPen 100 UNIT/ML Losartan Potassium 100 MG Losartan Potassium 100 MG No Losartan Potassium 100 MG Ozempic (0.25 or 0.5 MG/DOSE) 2 MG/3ML Ozempic (0.25 or 0.5 MG/DOSE) 2 MG/3ML No Ozempic (0.25 or 0.5 MG/DOSE) 2 MG/3ML NovoLOG FlexPen 100 UNIT/ML NovoLOG FlexPen 100 UNIT/ML No NovoLOG FlexPen 100 UNIT/ML Dexcom G7 Business Department Chair - Dexcom G7 Business Department Chair - No Dexcom G7 Business Department Chair - Atorvastati n Calcium 40 MG Atorvastati n Calcium 40 MG No Atorvastat in Calcium 40 MG Dexcom G7 Sensor - Dexcom G7 Sensor - No Dexcom G7 Sensor - Trulicity 0.75 MG/0.5ML Trulicity 0.75 MG/0.5ML No Trulicity 0.75 MG/0.5ML amLODIPine Besylate 10 MG amLODIPine Besylate 10 MG No amLODIPine Besylate 10 MG Esomeprazol e Magnesium 20 MG Esomeprazol e Magnesium 20 MG No 1{capsu le} QD Esomeprazo le Magnesium 20 MG Vitamin E Vitamin E No Vitamin E Levemir FlexPen 100 UNIT/ML Levemir FlexPen 100 UNIT/ML No BID Levemir FlexPen 100 UNIT/ML Losartan Potassium 100 MG Losartan Potassium 100 MG No Losartan Potassium 100 MG Ozempic (0.25 or 0.5 MG/DOSE) 2 MG/3ML Ozempic (0.25 or 0.5 MG/DOSE) 2 MG/3ML No Ozempic (0.25 or 0.5 MG/DOSE) 2 MG/3ML NovoLOG FlexPen 100 UNIT/ML NovoLOG FlexPen 100 UNIT/ML No NovoLOG FlexPen 100 UNIT/ML Dexcom G7 Business Department Chair - Dexcom G7 Business Department Chair - No Dexcom G7 Business Department Chair - Atorvastati n Calcium 40 MG Atorvastati n Calcium 40 MG No Atorvastat in Calcium 40 MG Dexcom G7 Sensor - Dexcom G7 Sensor - No Dexcom G7 Sensor - Trulicity 0.75 MG/0.5ML Trulicity 0.75 MG/0.5ML No Trulicity 0.75 MG/0.5ML amLODIPine Besylate 10 MG amLODIPine Besylate 10 MG No amLODIPine Besylate 10 MG Ozempic (0.25 or 0.5 MG/DOSE) 2 MG/3ML Ozempic (0.25 or 0.5 MG/DOSE) 2 MG/3ML No Ozempic (0.25 or 0.5 MG/DOSE) 2 MG/3ML Vitamin E Vitamin E No Vitamin E Levemir FlexPen 100 UNIT/ML Levemir FlexPen 100 UNIT/ML No BID Levemir FlexPen 100 UNIT/ML Losartan Potassium 100 MG Losartan Potassium 100 MG No Losartan Potassium 100 MG Atorvastati n Calcium 40 MG Atorvastati n Calcium 40 MG No Atorvastat in Calcium 40 MG NovoLOG FlexPen 100 UNIT/ML NovoLOG FlexPen 100 UNIT/ML No NovoLOG FlexPen 100 UNIT/ML Esomeprazol e Magnesium 20 MG Esomeprazol e Magnesium 20 MG No 1{capsu le} QD Esomeprazo le Magnesium 20 MG Dexcom G7 Business Department Chair - Dexcom G7 Business Department Chair - No Dexcom G7 Business Department Chair - Dexcom G7 Sensor - Dexcom G7 Sensor - No Dexcom G7 Sensor - Levemir FlexPen 100 UNIT/ML Levemir FlexPen 100 UNIT/ML No BID Levemir FlexPen 100 UNIT/ML amLODIPine Besylate 10 MG amLODIPine Besylate 10 MG No amLODIPine Besylate 10 MG Losartan Potassium 100 MG Losartan Potassium 100 MG No Losartan Potassium 100 MG Trulicity 0.75 MG/0.5ML Trulicity 0.75 MG/0.5ML No Trulicity 0.75 MG/0.5ML Dexcom G7 Sensor - Dexcom G7 Sensor - No Dexcom G7 Sensor - Atorvastati n Calcium 40 MG Atorvastati n Calcium 40 MG No Atorvastat in Calcium 40 MG Esomeprazol e Magnesium 20 MG Esomeprazol e Magnesium 20 MG No 1{capsu le} QD Esomeprazo le Magnesium 20 MG Dexcom G7 Sensor - Dexcom G7 Sensor - No Dexcom G7 Sensor - Dexcom G7 Business Department Chair - Dexcom G7 Business Department Chair - No Dexcom G7 Business Department Chair - NovoLOG FlexPen 100 UNIT/ML NovoLOG FlexPen 100 UNIT/ML No NovoLOG FlexPen 100 UNIT/ML Levemir FlexPen 100 UNIT/ML Levemir FlexPen 100 UNIT/ML No BID Levemir FlexPen 100 UNIT/ML Dexcom G7 Business Department Chair - Dexcom G7 Business Department Chair - No Dexcom G7 Business Department Chair - Ozempic (0.25 or 0.5 MG/DOSE) 2 MG/3ML Ozempic (0.25 or 0.5 MG/DOSE) 2 MG/3ML No Ozempic (0.25 or 0.5 MG/DOSE) 2 MG/3ML amLODIPine Besylate 10 MG amLODIPine Besylate 10 MG No amLODIPine Besylate 10 MG Ozempic (0.25 or 0.5 MG/DOSE) 2 MG/3ML Ozempic (0.25 or 0.5 MG/DOSE) 2 MG/3ML No Ozempic (0.25 or 0.5 MG/DOSE) 2 MG/3ML Losartan Potassium 100 MG Losartan Potassium 100 MG No Losartan Potassium 100 MG Trulicity 0.75 MG/0.5ML Trulicity 0.75 MG/0.5ML No Trulicity 0.75 MG/0.5ML Atorvastati n Calcium 40 MG Atorvastati n Calcium 40 MG No Atorvastat in Calcium 40 MG Esomeprazol e Magnesium 20 MG Esomeprazol e Magnesium 20 MG No 1{capsu le} QD Esomeprazo le Magnesium 20 MG Dexcom G7 Sensor - Dexcom G7 Sensor - No Dexcom G7 Sensor - Dexcom G7 Business Department Chair - Dexcom G7 Business Department Chair - No Dexcom G7 Business Department Chair - Losartan Potassium 100 MG Losartan Potassium 100 MG No 1{table t} QD Losartan Potassium 100 MG NovoLOG FlexPen 100 UNIT/ML NovoLOG FlexPen 100 UNIT/ML No NovoLOG FlexPen 100 UNIT/ML Levemir FlexPen 100 UNIT/ML Levemir FlexPen 100 UNIT/ML No BID Levemir FlexPen 100 UNIT/ML Ozempic (0.25 or 0.5 MG/DOSE) 2 MG/3ML Ozempic (0.25 or 0.5 MG/DOSE) 2 MG/3ML No Ozempic (0.25 or 0.5 MG/DOSE) 2 MG/3ML Esomeprazol e Magnesium 20 MG Esomeprazol e Magnesium 20 MG No 1{capsu le} QD Esomeprazo le Magnesium 20 MG Trulicity 0.75 MG/0.5ML Trulicity 0.75 MG/0.5ML No Trulicity 0.75 MG/0.5ML NovoLOG FlexPen 100 UNIT/ML NovoLOG FlexPen 100 UNIT/ML No NovoLOG FlexPen 100 UNIT/ML Trulicity 0.75 MG/0.5ML Trulicity 0.75 MG/0.5ML No Trulicity 0.75 MG/0.5ML amLODIPine Besylate 10 MG amLODIPine Besylate 10 MG No 1{table t} BID amLODIPine Besylate 10 MG NovoLOG FlexPen 100 UNIT/ML NovoLOG FlexPen 100 UNIT/ML No NovoLOG FlexPen 100 UNIT/ML Dexcom G7 Business Department Chair - Dexcom G7 Business Department Chair - No Dexcom G7 Business Department Chair - Zetia 10 MG Zetia 10 MG No 1{table t} QD Zetia 10 MG Losartan Potassium 100 MG Losartan Potassium 100 MG No Losartan Potassium 100 MG amLODIPine Besylate 10 MG amLODIPine Besylate 10 MG No 1{table t} BID amLODIPine Besylate 10 MG Pioglitazon e HCl 15 MG Pioglitazon e HCl 15 MG No 1{table t} QD Pioglitazo ne HCl 15 MG Atorvastati n Calcium 40 MG Atorvastati n Calcium 40 MG No Atorvastat in Calcium 40 MG Dexcom G7 Sensor - Dexcom G7 Sensor - No Dexcom G7 Sensor - Esomeprazol e Magnesium 20 MG Esomeprazol e Magnesium 20 MG No 1{capsu le} QD Esomeprazo le Magnesium 20 MG Atorvastati n Calcium 40 MG Atorvastati n Calcium 40 MG No 1{table t} QD Atorvastat in Calcium 40 MG Dexcom G7 Business Department Chair - Dexcom G7 Business Department Chair - No Dexcom G7 Business Department Chair - Trulicity 0.75 MG/0.5ML Trulicity 0.75 MG/0.5ML No Trulicity 0.75 MG/0.5ML Zetia 10 MG Zetia 10 MG No 1{table t} QD Zetia 10 MG NovoLOG FlexPen 100 UNIT/ML NovoLOG FlexPen 100 UNIT/ML No NovoLOG FlexPen 100 UNIT/ML amLODIPine Besylate 10 MG amLODIPine Besylate 10 MG No 1{table t} BID amLODIPine Besylate 10 MG Losartan Potassium 100 MG Losartan Potassium 100 MG No Losartan Potassium 100 MG Pioglitazon e HCl 15 MG Pioglitazon e HCl 15 MG No 1{table t} QD Pioglitazo ne HCl 15 MG Atorvastati n Calcium 40 MG Atorvastati n Calcium 40 MG No Atorvastat in Calcium 40 MG Dexcom G7 Sensor - Dexcom G7 Sensor - No Dexcom G7 Sensor - Esomeprazol e Magnesium 20 MG Esomeprazol e Magnesium 20 MG No 1{capsu le} QD Esomeprazo le Magnesium 20 MG Levemir FlexPen 100 UNIT/ML Levemir FlexPen 100 UNIT/ML No BID Levemir FlexPen 100 UNIT/ML Dexcom G7 Sensor - Dexcom G7 Sensor - No Dexcom G7 Sensor - Dexcom G7 Business Department Chair - Dexcom G7 Business Department Chair - No Dexcom G7 Business Department Chair - Ozempic (0.25 or 0.5 MG/DOSE) 2 MG/3ML Ozempic (0.25 or 0.5 MG/DOSE) 2 MG/3ML No Ozempic (0.25 or 0.5 MG/DOSE) 2 MG/3ML Losartan Potassium 100 MG Losartan Potassium 100 MG No 1{table t} QD Losartan Potassium 100 MG Esomeprazol e Magnesium 20 MG Esomeprazol e Magnesium 20 MG No 1{capsu le} QD Esomeprazo le Magnesium 20 MG Trulicity 0.75 MG/0.5ML Trulicity 0.75 MG/0.5ML No Trulicity 0.75 MG/0.5ML NovoLOG FlexPen 100 UNIT/ML NovoLOG FlexPen 100 UNIT/ML No NovoLOG FlexPen 100 UNIT/ML amLODIPine Besylate 10 MG amLODIPine Besylate 10 MG No 1{table t} BID amLODIPine Besylate 10 MG Atorvastati n Calcium 40 MG Atorvastati n Calcium 40 MG No 1{table t} QD Atorvastat in Calcium 40 MG Levemir FlexPen 100 UNIT/ML Levemir FlexPen 100 UNIT/ML No BID Levemir FlexPen 100 UNIT/ML Dexcom G7 Sensor - Dexcom G7 Sensor - No Dexcom G7 Sensor - Dexcom G7 Business Department Chair - Dexcom G7 Business Department Chair - No Dexcom G7 Business Department Chair - Ozempic (0.25 or 0.5 MG/DOSE) 2 MG/3ML Ozempic (0.25 or 0.5 MG/DOSE) 2 MG/3ML No Ozempic (0.25 or 0.5 MG/DOSE) 2 MG/3ML Losartan Potassium 100 MG Losartan Potassium 100 MG No 1{table t} QD Losartan Potassium 100 MG Esomeprazol e Magnesium 20 MG Esomeprazol e Magnesium 20 MG No 1{capsu le} QD Esomeprazo le Magnesium 20 MG Trulicity 0.75 MG/0.5ML Trulicity 0.75 MG/0.5ML No Trulicity 0.75 MG/0.5ML NovoLOG FlexPen 100 UNIT/ML NovoLOG FlexPen 100 UNIT/ML No NovoLOG FlexPen 100 UNIT/ML amLODIPine Besylate 10 MG amLODIPine Besylate 10 MG No 1{table t} BID amLODIPine Besylate 10 MG Atorvastati n Calcium 40 MG Atorvastati n Calcium 40 MG No 1{table t} QD Atorvastat in Calcium 40 MG Levemir FlexPen 100 UNIT/ML Levemir FlexPen 100 UNIT/ML No BID Levemir FlexPen 100 UNIT/ML Dexcom G7 Sensor - Dexcom G7 Sensor - No Dexcom G7 Sensor - Dexcom G7 Business Department Chair - Dexcom G7 Business Department Chair - No Dexcom G7 Business Department Chair - Ozempic (0.25 or 0.5 MG/DOSE) 2 MG/3ML Ozempic (0.25 or 0.5 MG/DOSE) 2 MG/3ML No Ozempic (0.25 or 0.5 MG/DOSE) 2 MG/3ML Losartan Potassium 100 MG Losartan Potassium 100 MG No 1{table t} QD Losartan Potassium 100 MG Esomeprazol e Magnesium 20 MG Esomeprazol e Magnesium 20 MG No 1{capsu le} QD Esomeprazo le Magnesium 20 MG Trulicity 0.75 MG/0.5ML Trulicity 0.75 MG/0.5ML No Trulicity 0.75 MG/0.5ML NovoLOG FlexPen 100 UNIT/ML NovoLOG FlexPen 100 UNIT/ML No NovoLOG FlexPen 100 UNIT/ML amLODIPine Besylate 10 MG amLODIPine Besylate 10 MG No 1{table t} BID amLODIPine Besylate 10 MG Atorvastati n Calcium 40 MG Atorvastati n Calcium 40 MG No 1{table t} QD Atorvastat in Calcium 40 MG Levemir FlexPen 100 UNIT/ML Levemir FlexPen 100 UNIT/ML No BID Levemir FlexPen 100 UNIT/ML Dexcom G7 Sensor - Dexcom G7 Sensor - No Dexcom G7 Sensor - Dexcom G7 Business Department Chair - Dexcom G7 Business Department Chair - No Dexcom G7 Business Department Chair - Ozempic (0.25 or 0.5 MG/DOSE) 2 MG/3ML Ozempic (0.25 or 0.5 MG/DOSE) 2 MG/3ML No Ozempic (0.25 or 0.5 MG/DOSE) 2 MG/3ML Vital Signs Vital Name Observation Time Observation Value Comments S neida height 2024-01-25 16:00:00 62 [in_i] Commo n [facility] weight 2024-01-25 16:00:00 167 [lb_av] Comm on [facility] temperature 2024-01-25 16:00:00 98.4 [degF] Com [facility] bmi 2024-01-25 16:00:00 30.54 kg/m2 Comm on [facility] oximetry 2024-01-25 16:00:00 97 % Commo n [facility] respiratory rate 2024-01-25 16:00:00 18 /min [facility] blood pressure systolic 2024-01-25 16:00:00 140 mm[Hg] Common [facility] blood pressure diastolic 2024-01-25 16:00:00 70 mm[Hg] [facility] height 2023 16:20:00 62 [in_i] Commo n [facility] weight 2023 16:20:00 162 [lb_av] Comm on [facility] temperature 2023 16:20:00 98.6 [degF] Com mon [facility] bmi 2023 16:20:00 29.63 kg/m2 Comm on [facility] oximetry 2023 16:20:00 99 % Commo n [facility] respiratory rate 2023 16:20:00 18 /min [facility] blood pressure systolic 2023 16:20:00 138 mm[Hg] [facility] blood pressure diastolic 2023 16:20:00 72 mm[Hg] [facility] height 2023-12-07 16:00:00 62 [in_i] Commo n [facility] weight 2023-12-07 16:00:00 162 [lb_av] Comm on [facility] temperature 2023-12-07 16:00:00 98.3 [degF] Com mon [facility] bmi 2023-12-07 16:00:00 29.63 kg/m2 Comm on [facility] oximetry 2023-12-07 16:00:00 98 % Comm n [facility] respiratory rate 2023-12-07 16:00:00 16 /min [facility] blood pressure systolic 2023-12-07 16:00:00 140 mm[Hg] [facility] blood pressure diastolic 2023-12-07 16:00:00 60 mm[Hg] [facility] Systolic blood pressure 2023-11-27 21:40:00 144 mm[Hg] [facility] Diastolic blood pressure 2023-11-27 21:40:00 80 mm[Hg] [facility] Heart rate 2023-11-27 21:40:00 75 /min [facility] Body temperature 2023-11-27 21:40:00 37 Sabiha [facility] Respiratory rate 2023-11-27 21:40:00 18 /min [facility] Oxygen saturation in Arterial blood by Pulse oximetry 2023-11-27 21:40:00 99 /min [facility] Body height 2023-11-27 18:41:00 154.9 cm [facility] Body weight 2023-11-27 18:41:00 71.668 kg [facility] BMI 2023-11-27 18:41:00 29.85 kg/m2 [facility] height 2023-11-26 13:20:00 62 [in_i] Commo n [facility] weight 2023-11-26 13:20:00 158 [lb_av] Comm on [facility] temperature 2023-11-26 13:20:00 98 [degF] Comm on [facility] bmi 2023-11-26 13:20:00 28.9 kg/m2 Commo n [facility] oximetry 2023-11-26 13:20:00 98 % Commo n [facility] respiratory rate 2023-11-26 13:20:00 18 /min [facility] blood pressure systolic 2023-11-26 13:20:00 140 mm[Hg] [facility] blood pressure diastolic 2023-11-26 13:20:00 80 mm[Hg] [facility] Systolic blood pressure 2021-11-14 17:34:00 170 mm[Hg] [facility] Diastolic blood pressure 2021-11-14 17:34:00 80 mm[Hg] [facility] Heart rate 2021-11-14 17:34:00 80 /min [facility] Body temperature 2021-11-14 17:32:00 36.83 Sabiha [facility] Respiratory rate 2021-11-14 17:32:00 20 /min [facility] Body height 2021-11-14 17:32:00 157.5 cm [facility] Body weight 2021-11-14 17:32:00 62.596 kg [facility] BMI 2021-11-14 17:32:00 25.24 kg/m2 [facility] Oxygen saturation in Arterial blood by Pulse oximetry 2021-11-14 17:32:00 98 /min [facility] BP Systolic 2022-11-10 16:39:00 146 mm[Hg] [...] / Time Performed Performing Clinicia n Source ASSIGNMENT OF BENEFITS 2023-11-27 21:19:34 Docto r Unassigned, [place] [facility] COMP. METABOLIC PANEL (48175) 2023-11-27 19:55:00 Irene Waggoner [facility] CBC WITHOUT DIFF 2023-11-27 19:55:00 Irene Waggoner [facility] POCT GLUCOSE (AUTOMATED) 2023-11-27 18:49:00 Doctor Unassigned, [place] [facility] CONSENT/REFUSAL FOR DIAGNOSIS AND TREATMENT 2023-11-27 18:27:13 Doctor Unassigned, [place] [facility] REFERRAL- REQUEST/RESPONSE 2022-11-20 06:01:00 Doctor Unassigned, [place] [facility] [address]1018 Ecg Routine Ecg W/least 12 Lds W/i r 2017-04-27 00:00:00 Plan of Care Planned Activity Planned Date Details Comments Source Goal Plan of Care Note [code = 53974-2] Goal Plan of Care Note [code = 40397-9] Goal Plan of Care Note [code = 53322-0] Goal Plan of Care Note [code = 93534-3] Goal Plan of Care Note [code = 25540-8] Goal Plan of Care Note [code = 04289-5] Goal Plan of Care Note [code = 52206-9] Goal Plan of Care Note [code = 81364-9] Goal Plan of Care Note [code = 27476-6] Goal Plan of Care Note [code = 06245-4] Goal Plan of Care Note [code = 85627-9] Goal Plan of Care Note [code = 93788-8] Goal Plan of Care Note [code = 15065-1] Goal Plan of Care Note [code = 04651-9] Goal Plan of Care Note [code = 94089-1] Goal Plan of Care Note [code = 66854-4] Goal Plan of Care Note [code = 78619-0] Goal Plan of Care Note [code = 41429-5] Goal Plan of Care Note [code = 00876-0] Goal Plan of Care Note [code = 24136-4] Goal Plan of Care Note [code = 55943-1] Goal Plan of Care Note [code = 06788-5] Goal Plan of Care Note [code = 23445-2] Goal Plan of Care Note [code = 65771-3] Goal Plan of Care Note [code = 38408-2] Goal Plan of Care Note [code = 11120-8] Goal Plan of Care Note [code = 83654-6] Goal Plan of Care Note [code = 34415-7] Goal Plan of Care Note [code = 90476-4] Goal Plan of Care Note [code = 72234-9] Goal Plan of Care Note [code = 61936-0] Goal Plan of Care Note [code = 27945-0] Goal Plan of Care Note [code = 95121-5] Goal Plan of Care Note [code = 01514-4] Goal Plan of Care Note [code = 03950-3] Goal Plan of Care Note [code = 90268-9] Goal Plan of Care Note [code = 52850-1] Goal Plan of Care Note [code = 76234-2] Goal Plan of Care Note [code = 47374-9] Goal Plan of Care Note [code = 64880-8] Goal Plan of Care Note [code = 02592-2] Goal Plan of Care Note [code = 74276-3] Goal Plan of Care Note [code = 31236-5] Goal Plan of Care Note [code = 19356-2] Goal Plan of Care Note [code = 25915-4] Goal Plan of Care Note [code = 02974-5] Goal Plan of Care Note [code = 35746-6] Goal Plan of Care Note [code = 10691-0] Goal Plan of Care Note [code = 87562-4] Goal Plan of Care Note [code = 77085-8] Goal Plan of Care Note [code = 07652-0] Goal Plan of Care Note [code = 79887-5] Goal Plan of Care Note [code = 70543-1] Goal Plan of Care Note [code = 70027-7] Goal Plan of Care Note [code = 72931-2] Goal Plan of Care Note [code = 70293-0] Goal Plan of Care Note [code = 26134-7] Goal Plan of Care Note [code = 45928-5] Goal Plan of Care Note [code = 12260-7] Goal Plan of Care Note [code = 76277-6] Goal Plan of Care Note [code = 23947-5] Goal Plan of Care Note [code = 46817-4] Goal Plan of Care Note [code = 98974-5] Goal Plan of Care Note [code = 15726-3] Goal Plan of Care Note [code = 52872-5] Goal Plan of Care Note [code = 57568-4] Goal Plan of Care Note [code = 54265-8] Goal Plan of Care Note [code = 30850-4] Goal Plan of Care Note [code = 19568-6] Goal Plan of Care Note [code = 12689-4] Goal Plan of Care Note [code = 96175-9] Goal Plan of Care Note [code = 57326-0] Goal Plan of Care Note [code = 04427-2] Goal Plan of Care Note [code = 01906-0] Goal Plan of Care Note [code = 72186-4] Goal Plan of Care Note [code = 42462-9] Goal Plan of Care Note [code = 53241-5] Goal Plan of Care Note [code = 10301-2] Goal Plan of Care Note [code = 97884-5] Goal Plan of Care Note [code = 72491-0] Goal Plan of Care Note [code = 44245-6] Goal Plan of Care Note [code = 85224-2] Goal Plan of Care Note [code = 76885-7] Goal Plan of Care Note [code = 64503-6] Goal Plan of Care Note [code = 42249-2] Goal Plan of Care Note [code = 23430-0] Goal Plan of Care Note [code = 89894-5] Goal Plan of Care Note [code = 23492-9] Goal Plan of Care Note [code = 92354-3] Goal Plan of Care Note [code = 53176-3] Goal Plan of Care Note [code = 66451-0] Goal Plan of Care Note [code = 59296-3] Goal Plan of Care Note [code = 16351-4] Goal Plan of Care Note [code = 82078-9] Goal Plan of Care Note [code = 36359-1] Goal Plan of Care Note [code = 67736-2] Goal Plan of Care Note [code = 58080-3] Goal Plan of Care Note [code = 27003-2] Goal Plan of Care Note [code = 86245-4] Goal Plan of Care Note [code = 47195-7] Goal Plan of Care Note [code = 27454-0] Goal Plan of Care Note [code = 76855-0] Goal Plan of Care Note [code = 19446-7] Goal Plan of Care Note [code = 88428-8] Goal Plan of Care Note [code = 92820-4] Goal Plan of Care Note [code = 51179-0] Goal Plan of Care Note [code = 18095-0] Goal Plan of Care Note [code = 75027-1] Goal Plan of Care Note [code = 87469-8] Goal Plan of Care Note [code = 14537-5] Goal Plan of Care Note [code = 12406-6] Goal Plan of Care Note [code = 75860-2] Goal Plan of Care Note [code = 07976-6] Goal Plan of Care Note [code = 07268-3] Goal Plan of Care Note [code = 12401-5] Goal Plan of Care Note [code = 84425-4] Goal Plan of Care Note [code = 47653-8] Goal Plan of Care Note [code = 20402-6] Goal Plan of Care Note [code = 13743-1] Goal Plan of Care Note [code = 05921-0] Goal Plan of Care Note [code = 72218-6] Goal Plan of Care Note [code = 69680-0] Goal Plan of Care Note [code = 62694-2] Goal Plan of Care Note [code = 53362-4] Goal Plan of Care Note [code = 74810-9] Goal Plan of Care Note [code = 83815-3] Goal Plan of Care Note [code = 09751-5] Goal Plan of Care Note [code = 93372-9] Goal Plan of Care Note [code = 31436-8] Goal Plan of Care Note [code = 33245-3] Goal Plan of Care Note [code = 54464-6] Goal Plan of Care Note [code = 88840-7] Goal Plan of Care Note [code = 39735-9] Goal Plan of Care Note [code = 25849-5] Goal Plan of Care Note [code = 92918-7] Goal Plan of Care Note [code = 80171-7] Goal Plan of Care Note [code = 58627-3] Goal Plan of Care Note [code = 30156-6] Goal Plan of Care Note [code = 37136-2] Goal Plan of Care Note [code = 50724-0] Goal Plan of Care Note [code = 14901-0] Goal Plan of Care Note [code = 44764-1] Goal Plan of Care Note [code = 66507-7] Goal Plan of Care Note [code = 74814-6] Goal Plan of Care Note [code = 99310-8] Goal Plan of Care Note [code = 41758-5] Goal Plan of Care Note [code = 22686-7] Goal Plan of Care Note [code = 01569-0] Goal Plan of Care Note [code = 51913-7] Goal Plan of Care Note [code = 06130-9] Goal Plan of Care Note [code = 32862-0] Goal Plan of Care Note [code = 38439-6] Goal Plan of Care Note [code = 11648-0] Encounters Start Date/Time End Date/Time Encounter Type Admission Type Attending [facility] Care Facility Care Department Encounter ID Source 2024-02-22 16:33:01 Outpatient Tigist Dam[facility] [id number] [facility] 2024-01-23 10:51:00 Outpatient Tigist Dam[facility] [id number] [facility] 2024-01-10 16:57:00 Outpatient Tigist Dam[facility] [id number] [facility] 2023-12-25 09:46:01 Outpatient Tigist Damon [facility] [id number] [facility] 2023-12-05 07:31:00 Outpatient Tigist Damon [facility] [id number] [facility] 2023-11-26 13:13:01 Outpatient Tigist Damon [facility] [id number] [facility] 2024-02-08 00:00:00 2024-02-08 00:00:00 (TEL) [facility] [id number] [facility] 2024-01-25 00:00:00 2024-01-25 00:00:00 PREV VISIT EST AGE 40-64 [facility] [id number] [facility] 2024-01-18 00:00:00 2024-01-18 00:00:00 (TEL) [facility] [id number] [facility] 2024-01-11 00:00:00 2024-01-11 00:00:00 OFFICE VISIT ESTAB PT LEVEL 3 [facility] [id number] [facility] 2024-01-10 00:00:00 2024-01-10 00:00:00 (TEL) [facility] [id number] [facility] 2023 00:00:00 2023 00:00:00 OFFICE VISIT ESTAB PT LEVEL 4 [facility] [id number] [facility] 2023-12-24 00:00:00 2023-12-24 00:00:00 (TEL) [facility] [id number] [facility] 2023-12-17 00:00:00 2023-12-17 00:00:00 (TEL) [facility] [id number] [facility] 2023-12-11 13:30:00 2023-12-11 13:30:00 Outpatient JASSON STARK [id number] Maria R Joyce 2023-12-07 00:00:00 2023-12-07 00:00:00 OFFICE VISIT ESTAB PT LEVEL 4 [facility] [id number] [facility] 2023-11-29 00:00:00 2023-11-29 00:00:00 (TEL) [facility] [id number] [facility] 2023-11-28 00:00:00 2023-11-28 00:00:00 (TEL) [facility] [id number] [facility] 2023-11-27 12:42:00 2023-11-27 15:41:00 Emergency X IRENE WAGGONER [facility] [id number] [facility] 2023-11-27 12:42:00 2023-11-27 15:41:00 Emergency Irene Waggoner [facility] 1.2.840.114 350.1.13.10 4.2.7.2.686 [id number] [facility] 2023-11-27 00:00:00 2023-11-27 00:00:00 (TEL) [facility]C [facility] [id number] [facility] 2023-11-27 00:00:00 2023-11-27 00:00:00 (TEL) [facility] [id number] [facility] 2023-11-27 00:00:00 2023-11-27 00:00:00 OFFICE VISIT ESTAB PT LEVEL 5 [facility] [id number] [facility] 2023-11-27 00:00:00 2023-11-27 00:00:00 (TEL) [facility]C [facility] [id number] [facility] 2023-11-26 00:00:00 2023-11-26 00:00:00 OFFICE VISIT NEW PT LEVEL 4 [facility] [id number] [facility] 2023-07-05 14:50:31 2023-07-05 14:50:31 Outpatient [facility] [id number] Maurice Rodrigez 2023-04-14 12:19:21 2023-04-14 12:19:21 Outpatient [facility] [id number] Maurice Rodrigez 2022-11-24 00:00:00 2022-11-24 00:00:00 Patient Secure Msg Doctor Unassigned, [place] [facility] 1.2.840.114 350.1.13.10 4.2.7.2.686 [id number] [facility] 2022-11-20 15:43:47 2022-11-20 15:43:47 Outpatient [facility] [id number] Maurice Rodrigez 2022-11-20 00:00:00 2022-11-20 00:00:00 Orders Only Doctor Unassigned, [place] [facility] 1.2.840.114 350.1.13.10 4.2.7.2.686 [id number] [facility] 2022-11-10 16:30:38 2022-11-10 16:30:38 Outpatient [facility] [id number] Maurice Rodrigez 2022-11-10 00:00:00 2022-11-10 00:00:00 Outpatient Visit [id number] 2022-09-14 17:09:48 2022-09-14 17:09:48 Outpatient [facility] [id number] Maurice Rodrigez 2022-09-14 00:00:00 2022-09-14 00:00:00 Outpatient Visit [id number] 2022-08-18 14:24:12 2022-08-18 14:24:12 Outpatient [facility] [id number] Maurice Rodrigez 2022-08-18 00:00:00 2022-08-18 00:00:00 Outpatient Visit [id number] 2022-06-26 00:00:00 2022-06-26 00:00:00 Outpatient Visit [id number] 2021-12-15 11:15:00 2021-12-15 11:15:00 Outpatient R HEATHER HOUSTON [facility] [id number] [facility] 2021-11-14 10:45:00 2021-11-14 11:25:15 Outpatient R HEATHER HOUSTON [facility] [id number] [facility] 2021-11-14 10:45:00 2021-11-14 11:25:15 Office Visit Heather Houston [facility] 1..114 350.1.13.10 4.2.7.2.686 [id number] [facility] 2021-11-14 10:45:00 2021-11-14 11:25:15 Outpatient R HEATHER HOUSTON [facility] [id number] [facility] 2021-11-14 00:00:00 2021-11-14 00:00:00 Orders Only Doctor Unassigned, [place] [facility] 1.0.114 350.1.13.10 4.2.7.2.686 [id number] [facility] 2021-11-07 00:00:00 2021-11-07 00:00:00 Transition of Care Felipa Monson 1.840.114 350.1.13.10 4.2.7.2.686 [id number] [facility] 2021-11-02 15:28:00 2021-11-05 14:30:00 Inpatient GUZMAN HALLMAN [facility] [id number] [facility] 2021-11-02 15:28:00 2021-11-05 14:30:00 Hospital Encounter Serenity Doe, Guzman Balderas [facility] 1.2.840.114 350.1.13.10 4.2.7.2.686 [id number] [facility] 2019-07-01 20:04:11 2019-07-01 21:35:00 Emergency Wiliam Gutierres [facility] 1.2.840.114 350.1.13.10 4.2.7.2.686 [id number] [facility] 2019-07-01 20:04:11 2019-07-01 21:35:00 Emergency Wiliam Gutierres [facility] 1.2.840.114 350.1.13.10 4.2.7.2.686 [id number] 2013-10-29 15:36:00 2013-10-29 23:10:00 Emergency FLYNN DEWEY [facility] [id number] [facility] Results Test Description Test Time Test Comments Results Result Co mments Source STREP A [id number] 00:00:00ResultHEMOGLOBIN [id number] 00:00:00* Test Item Value Reference Range Interpretation Comme [facility] A1C (test code = 4548-4) 10.7 POCT GLUCOSE (AUTOMATED)2023-11-27 18:53:55* Test Item Value Reference Range Interpretation Comme [facility] POCT GLU (test code = 2751012122) 167 mg/dL 70-110 H Lab Interpretation (test cod e = 53100-2) Abnormal [facility] W/O DIFF, WITH [id number] 00:00:00* Test Item Value Reference Range Interpretation Comme nts HEMATOCRIT (test code = 98674-6) 33.3 % See_Comment L [Automated messa ge] The system which generated this result transmitted reference range: 34.0-45.0 %. The reference range was not used to interpret this result as normal/abnormal. HEMOGLOBIN (test code = 718-7) 10.8 G/DL See_Comment L [Automated messa ge] The system which generated this result transmitted reference range: 11.5-15.5 G/DL. The reference range was not used to interpret this result as normal/abnormal. MCH (test code = 90982-4) 29.2 PG See_Comment [Automated messa ge] The system which generated this result transmitted reference range: 25.0-33.0 PG. The reference range was not used to interpret this result as normal/abnormal. MCHC (test code = 69310-2) 32.4 G/DL See_Comment [Automated messa ge] The system which generated this result transmitted reference range: 31.0-36.0 G/DL. The reference range was not used to interpret this result as normal/abnormal. MCV (test code = 32489-0) 90.0 fL See_Comment [Automated messa ge] The system which generated this result transmitted reference range: 80.0-99.0 fL. The reference range was not used to interpret this result as normal/abnormal. PLATELET COUNT (test code = 02472-6) 269 K/UL See_Comment [Automated messa ge] The system which generated this result transmitted reference range: 130-400 K/UL. The reference range was not used to interpret this result as normal/abnormal. RBC (test code = 52504-1) 3.70 M/UL See_Comment L [Automated messa ge] The system which generated this result transmitted reference range: 3.80-5.40 M/UL. The reference range was not used to interpret this result as normal/abnormal. WBC (test code = 02541-4) 9.7 K/UL See_Comment [Automated messa ge] The system which generated this result transmitted reference range: 3.5-11.0 K/UL. The reference range was not used to interpret this result as normal/abnormal. UA, MICROSCOPIC, REFLEX TO [id number] 00:00:00* Test Item Value Reference Range Interpretation Comme nts APPEARANCE (test code = 5767-9) CLOUDY CLEAR A BACTERIA (test code = 70600-2) >3+ NONE SEEN BILIRUBIN (test code = 5770-3) NEGATIVE NEGATIVE CASTS, HYALINE (test code = 74551-4) NONE SEEN NONE-TRACE COLOR (test code = 5778-6) YELLOW YELLOW-STRAW EPITHELIAL CELLS (test code = 28100-5) 0-5 /HPF See_Comment [Automated messa ge] The system which generated this result transmitted reference range: 0-10 /HPF. The reference range was not used to interpret this result as normal/abnormal. GLUCOSE (test code = 5792-7) 3+ NEGATIVE A KETONES (test code = 5797-6) NEGATIVE NEGATIVE LEUKOCYTE ESTERASE (test code = 5799-2) NEGATIVE NEGATIVE NITRITE (test code = 5802-4) NEGATIVE NEGATIVE OCCULT BLOOD (test code = 21249-4) TRACE NEGATIVE A pH (test code = 5803-2) 5.5 5.0-9.0 PROTEIN (test code = 49277-8) 1+ NEGATIVE A RED BLOOD CELLS (test code = 13916-5) 0-2 /HPF See_Comment [Automated messa ge] The system which generated this result transmitted reference range: 0-2 /HPF. The reference range was not used to interpret this result as normal/abnormal. SPECIFIC GRAVITY (test code = 5811-5) 1.027 1.005-1.035 UROBILINOGEN (test code = 22631-5) 0.2 MG/DL See_Comment [Automated messa ge] The system which generated this result transmitted reference range: <=2.0 MG/DL. The reference range was not used to interpret this result as normal/abnormal. WHITE BLOOD CELLS (test code = 96707-0) 0-5 /HPF See_Comment [Automated messa ge] The system which generated this result transmitted reference range: 0-5 /HPF. The reference range was not used to interpret this result as normal/abnormal. LIPID [id number] 00:00:00* Test Item Value Reference Range Interpretation Comme nts CALC LDL CHOL (test code = 43840-9) 147 MG/DL See_Comment H [Automated messa ge] The system which generated this result transmitted reference range: <100 MG/DL. The reference range was not used to interpret this result as normal/abnormal. CHOLESTEROL (test code = 2093-3) 245 MG/DL See_Comment H [Automated messa ge] The system which generated this result transmitted reference range: <200 MG/DL. The reference range was not used to interpret this result as normal/abnormal. HDL CHOLESTEROL (test code = 2085-9) 61 MG/DL See_Comment [Automated Squrla ge] The system which generated this result transmitted reference range: >39 MG/DL. The reference range was not used to interpret this result as normal/abnormal. RISK RATIO LDL/HDL (test code = 75634-9) 2.41 RATIO See_Comment [Automated message] The system which generated this result transmitted reference range: <3.22 RATIO. The reference range was not used to interpret this result as normal/abnormal. TRIGLYCERIDES (test code = 2571-8) 220 MG/DL See_Comment H [Automated Squrla ge] The system which generated this result transmitted reference range: <150 MG/DL. The reference range was not used to interpret this result as normal/abnormal. ALBUMIN/CREATININE RATIO, RANDOM [id number] 00:00:00* Test Item Value Reference Range Interpretation Comme nts ALBUMIN, URINE, RANDOM (test code = 46324-9) 12.4 MG/DL NOT ESTAB MG/DL CALC ALBUMIN/CREAT, RND (test code = 53747-4) 388 MG/G See_Comment H [Automated Squrla ge] The system which generated this result transmitted reference range: <30 MG/G. The reference range was not used to interpret this result as normal/abnormal. CREATININE, URINE, CONC. (test code = 2161-8) 32.0 MG/DL NOT ESTAB MG/DL COMPREHENSIVE METABOLIC [id number] 00:00:00* Test Item Value Reference Range Interpretation Comme nts ALBUMIN (test code = 1751-7) 4.4 G/DL See_Comment [Automated Squrla ge] The system which generated this result transmitted reference range: 3.5-5.2 G/DL. The reference range was not used to interpret this result as normal/abnormal. ALKALINE PHOSPHATASE (test code = 6768-6) 143 U/L See_Comment H [Automated message] The system which generated this result transmitted reference range: 40-136 U/L. The reference range was not used to interpret this result as normal/abnormal. BILIRUBIN, TOTAL (test code = 1975-2) 0.2 MG/DL See_Comment [Automated message] The system which generated this result transmitted reference range: <=1.2 MG/DL. The reference range was not used to interpret this result as normal/abnormal. BUN (test code = 3094-0) 50 MG/DL See_Comment H [Automated messa ge] The system which generated this result transmitted reference range: 6-20 MG/DL. The reference range was not used to interpret this result as normal/abnormal. CALCIUM (test code = 17048-7) 9.6 MG/DL See_Comment [Automated messa ge] The system which generated this result transmitted reference range: 8.5-10.5 MG/DL. The reference range was not used to interpret this result as normal/abnormal. CALC A/G RATIO (test code = 1759-0) 1.6 RATIO See_Comment [Automated messa ge] The system which generated this result transmitted reference range: 1.0-2.6 RATIO. The reference range was not used to interpret this result as normal/abnormal. CALC BUN/CREAT (test code = 3097-3) 34 RATIO See_Comment H [Automated messa ge] The system which generated this result transmitted reference range: 6-28 RATIO. The reference range was not used to interpret this result as normal/abnormal. CALC GLOBULIN (test code = 56633-4) 2.8 G/DL See_Comment [Automated messa ge] The system which generated this result transmitted reference range: 1.9-3.7 G/DL. The reference range was not used to interpret this result as normal/abnormal. CARBON DIOXIDE (test code = 1963-8) 24 MEQ/L See_Comment [Automated messa ge] The system which generated this result transmitted reference range: 19-31 MEQ/L. The reference range was not used to interpret this result as normal/abnormal. CHLORIDE (test code = 2075-0) 94 MEQ/L See_Comment L [Automated messa ge] The system which generated this result transmitted reference range: 95-107 MEQ/L. The reference range was not used to interpret this result as normal/abnormal. CREATININE (test code = 2160-0) 1.49 MG/DL See_Comment H [Automated messa ge] The system which generated this result transmitted reference range: 0.60-1.30 MG/DL. The reference range was not used to interpret this result as normal/abnormal. eGFR (2020 CKD-EPI) (test code = 36856-8) 40 ML/MIN/1.73 See_Comment L [Automated messa ge] The system which generated this result transmitted reference range: >60 ML/MIN/1.73. The reference range was not used to interpret this result as normal/abnormal. GLUCOSE (test code = 1558-6) 616 MG/DL See_Comment HH [Automated messa ge] The system which generated this result transmitted reference range: 70-99 MG/DL. The reference range was not used to interpret this result as normal/abnormal. POTASSIUM (test code = 2823-3) 5.5 MEQ/L See_Comment H [Automated messa ge] The system which generated this result transmitted reference range: 3.5-5.4 MEQ/L. The reference range was not used to interpret this result as normal/abnormal. PROTEIN, TOTAL (test code = 2885-2) 7.2 G/DL See_Comment [Automated messa ge] The system which generated this result transmitted reference range: 6.1-8.3 G/DL. The reference range was not used to interpret this result as normal/abnormal. AST (test code = 1920-8) 16 U/L See_Comment [Automated messa ge] The system which generated this result transmitted reference range: 9-40 U/L. The reference range was not used to interpret this result as normal/abnormal. ALT (test code = 1742-6) 19 U/L See_Comment [Automated messa ge] The system which generated this result transmitted reference range: 5-40 U/L. The reference range was not used to interpret this result as normal/abnormal. SODIUM (test code = 2951-2) 131 MEQ/L See_Comment L [Automated messa ge] The system which generated this result transmitted reference range: 133-146 MEQ/L. The reference range was not used to interpret this result as normal/abnormal. HEMOGLOBIN [id number] 00:00:00* Test Item Value Reference Range Interpretation Comme nts A1C (test code = 4548-4) >15.0 LIPID [id number] 04:57:04* Test Item Value Reference Range Interpretation Comme nts CHOLESTEROL (test code = 2210) 206 MG/DL <200 H TRIGLYCERIDES (test code = 2232) 194 MG/DL <150 H HDL CHOLESTEROL (test code = 2220) 53 MG/DL >39 CALC LDL CHOL (test code = 2237) 122 MG/DL <100 H NOTE: CALCULATED LDL IS BASED ON WILLIAM-MARTINEZ METHOD WHICHINCLUDES ADJUSTABLE TRIGLYCERIDE:VLDL CHOLESTEROL RATIO.THIS FACTOR VARIES BY MEASURED TRIGLYCERIDE AND NON-HDLCHOLESTEROL CONCENTRATIONS WITH INCREASED CALCULATED LDL SEENIN HIGHER TRIGLYCERIDE OR LOWER NON-HDL SPECIMENS. FOR MOREINFORMATION, SEE CLIENT ANNOUNCEMENT AT [email or web address] RISK RATIO LDL/HDL (test code = 2238) 2.30 RATIO <3.22 COMPREHENSIVE METABOLIC [id number] 04:57:04* Test Item Value Reference Range Interpretation Comme nts GLUCOSE (test code = 2217) 184 MG/DL 70-99 H BUN (test code = 8) 66 MG/DL 6-20 H CREATININE (test code = 2214) 1.87 MG/DL 0.60-1.30 H eGFR (2020 CKD-EPI) (test code = 34288) 31 ML/MIN/1.73 >60 L CALC BUN/CREAT (test code = 2235) 35 RATIO 6-28 H SODIUM (test code = 223) 138 MEQ/L 133-146 POTASSIUM (test code = 2228) 5.0 MEQ/L 3.5-5.4 CHLORIDE (test code = 2215) 100 MEQ/L 95-107 CARBON DIOXIDE (test code = 2206) 20 MEQ/L 19-31 CALCIUM (test code = 2209) 11.0 MG/DL 8.5-10.5 H PROTEIN, TOTAL (test code = 222) 7.7 G/DL 6.1-8.3 ALBUMIN (test code = 2201) 4.7 G/DL 3.5-5.2 CALC GLOBULIN (test code = 2240) 3.0 G/DL 1.9-3.7 CALC A/G RATIO (test code = 2234) 1.6 RATIO 1.0-2.6 BILIRUBIN, TOTAL (test code = 2206) <0.2 MG/DL See_Comment [Automated me ssage] The system which generated this result transmitted reference range: <=1.2. The reference range was not used to interpret this result as normal/abnormal. ALKALINE PHOSPHATASE (test code = 2204) 137 U/L 40-136 H AST (test code = 2218) 17 U/L 9-40 ALT (test code = 2219) 21 U/L 5-40 UNLESS OTHERWISE INDICATED, ALL TESTING PERFORMED [employer] [address] [place] [address] [employer] UMPIRE: MARGI OCHOA M.D. CLIA NUMBER [id number] [place]. [id number] HEMOGLOBIN [id number] 03:03:22* Test Item Value Reference Range Interpretation Comme [facility] HEMOGLOBIN A1c (test code = 08605) 10.6 % 4.2-5.6 H [employer] GUIDELINES FOR HGB A1C: [...] CONSIDER ALTERNATE TESTING OR LABORATORY CONSULTATION. HEMOGLOBIN [id number] 05:15:03* Test Item Value Reference Range Interpretation Comme [facility] HEMOGLOBIN A1c (test code = 77226) 13.9 % 4.2-5.6 H [employer] GUIDELINES FOR HGB A1C: [...] CONSULTATION. UNLESS OTHERWISE INDICATED, ALL TESTING PERFORMED [employer] [address] [place] [address] [employer]: MARGI OCHOA M.D. CLIA NUMBER [id number] [place]. [id number] HEMOGLOBIN [id number] 00:00:00* Test Item Value Reference Range Interpretation Comme nts HEMOGLOBIN A1c (test code = 70438) 13.9 % HEMOGLOBIN [id number] 00:00:00* Test Item Value Reference Range Interpretation Comme nts HEMOGLOBIN A1c (test code = 35172) 13.9 % HEMOGLOBIN [id number] 00:00:00* Test Item Value Reference Range Interpretation Comme nts HEMOGLOBIN A1c (test code = 05495) 13.9 % HEMOGLOBIN [id number] 00:00:00* Test Item Value Reference Range Interpretation Comme nts HEMOGLOBIN A1c (test code = 13897) 13.9 % HEMOGLOBIN [id number] 00:00:00* Test Item Value Reference Range Interpretation Comme nts HEMOGLOBIN A1c (test code = 54920) 13.9 % HEMOGLOBIN [id number] 00:00:00* Test Item Value Reference Range Interpretation Comme nts HEMOGLOBIN A1c (test code = 22932) 13.9 % COMPREHENSIVE METABOLIC [id number] 06:03:34* Test Item Value Reference Range Interpretation Comme nts GLUCOSE (test code = 2217) 72 MG/DL 70-99 BUN (test code = 220) 45 MG/DL 6-20 H CREATININE (test code = 2214) 1.24 MG/DL 0.60-1.30 eGFR (2020 CKD-EPI) (test code = 96872) 51 ML/MIN/1.73 >60 L CALC BUN/CREAT (test code = 2235) 36 RATIO 6-28 H SODIUM (test code = 223) 140 MEQ/L 133-146 POTASSIUM (test code = 2228) 4.5 MEQ/L 3.5-5.4 CHLORIDE (test code = 2215) 104 MEQ/L 95-107 CARBON DIOXIDE (test code = 2206) 24 MEQ/L 19-31 CALCIUM (test code = 2209) 10.2 MG/DL 8.5-10.5 PROTEIN, TOTAL (test code = 2228) 7.0 G/DL 6.1-8.3 ALBUMIN (test code = 1) 4.2 G/DL 3.5-5.2 CALC GLOBULIN (test code = 2240) 2.8 G/DL 1.9-3.7 CALC A/G RATIO (test code = 2234) 1.5 RATIO 1.0-2.6 BILIRUBIN, TOTAL (test code = 2207) <0.2 MG/DL See_Comment [Automated me ssage] The system which generated this result transmitted reference range: <=1.2. The reference range was not used to interpret this result as normal/abnormal. ALKALINE PHOSPHATASE (test code = 2204) 134 U/L 40-136 AST (test code = 2218) 23 U/L 9-40 ALT (test code = 2219) 19 U/L 5-40 UNLESS OTHERWISE INDICATED, ALL TESTING PERFORMED [facility] [employer] [address] [place] [address] [employer]OR[employer] UMPIRE: MARGI OCHOA M.D. IA NUMBER [id number] [facility] [place]. [id number] HEMOGLOBIN [id number] 05:25:13* Test Item Value Reference Range Interpretation Comme [facility] HEMOGLOBIN A1c (test code = 08838) 13.8 % 4.2-5.6 H [employer] GUIDELINES FOR HGB A1C: [...] CONSIDER ALTERNATE TESTING OR LABORATORY CONSULTATION. HEMOGLOBIN [id number] 00:00:00* Test Item Value Reference Range Interpretation Comme [facility] HEMOGLOBIN A1c (test code = 25911) 13.8 % HEMOGLOBIN [id number] 00:00:00* Test Item Value Reference Range Interpretation Comme [facility] HEMOGLOBIN A1c (test code = 97582) 13.8 % HEMOGLOBIN [id number] 00:00:00* Test Item Value Reference Range Interpretation Comme [facility] HEMOGLOBIN A1c (test code = 98403) 13.8 % COMPREHENSIVE METABOLIC [id number] 00:00:00* Test Item Value Reference Range Interpretation Comme nts GLUCOSE (test code = 2217) 72 MG/DL BUN (test code = 2208) 45 MG/DL CREATININE (test code = 2214) 1.24 MG/DL eGFR (2020 CKD-EPI) (test co de = 55282) 51 ML/MIN/1.73 CALC BUN/CREAT (test code = [...] code = 2219) 19 U/L COMPREHENSIVE METABOLIC [id number] 00:00:00* Test Item Value Reference Range Interpretation Comme nts GLUCOSE (test code = 2217) 72 MG/DL BUN (test code = 2208) 45 MG/DL CREATININE (test code = 2214) 1.24 MG/DL eGFR (2020 CKD-EPI) (test co de = 70288) 51 ML/MIN/1.73 CALC BUN/CREAT (test code = [...] (test code = 2219) 19 U/L HEMOGLOBIN [id number] 00:00:00* Test Item Value Reference Range Interpretation Comme nts HEMOGLOBIN A1c (test code = 77509) 13.8 % HEMOGLOBIN [id number] 00:00:00* Test Item Value Reference Range Interpretation Comme nts HEMOGLOBIN A1c (test code = 59558) 13.8 % HEMOGLOBIN [id number] 00:00:00* Test Item Value Reference Range Interpretation Comme nts HEMOGLOBIN A1c (test code = 81596) 13.8 % COMPREHENSIVE METABOLIC [id number] 00:00:00* Test Item Value Reference Range Interpretation Comme nts GLUCOSE (test code = 2217) 72 MG/DL BUN (test code = 2208) 45 MG/DL CREATININE (test code = 2214) 1.24 MG/DL eGFR (2020 CKD-EPI) (test co de = 61482) 51 ML/MIN/1.73 CALC BUN/CREAT (test code = [...] code = 2219) 19 U/L COMPREHENSIVE METABOLIC [id number] 00:00:00* Test Item Value Reference Range Interpretation Comme nts GLUCOSE (test code = 2217) 72 MG/DL BUN (test code = 2208) 45 MG/DL CREATININE (test code = 2214) 1.24 MG/DL eGFR (2020 CKD-EPI) (test co de = 07385) 51 ML/MIN/1.73 CALC BUN/CREAT (test code = [...] (test code = 2219) 19 U/L HEMOGLOBIN [id number] 00:00:00* Test Item Value Reference Range Interpretation Comme nts HEMOGLOBIN A1c (test code = 35534) 13.8 % HEMOGLOBIN [id number] 00:00:00* Test Item Value Reference Range Interpretation Comme nts HEMOGLOBIN A1c (test code = 50993) 13.8 % HEMOGLOBIN [id number] 00:00:00* Test Item Value Reference Range Interpretation Comme nts HEMOGLOBIN A1c (test code = 91640) 13.8 % COMPREHENSIVE METABOLIC [id number] 00:00:00* Test Item Value Reference Range Interpretation Comme nts GLUCOSE (test code = 2217) 72 MG/DL BUN (test code = 2208) 45 MG/DL CREATININE (test code = 2214) 1.24 MG/DL eGFR (2020 CKD-EPI) (test co de = 30054) 51 ML/MIN/1.73 CALC BUN/CREAT (test code = [...] code = 2219) 19 U/L COMPREHENSIVE METABOLIC [id number] 00:00:00* Test Item Value Reference Range Interpretation Comme nts GLUCOSE (test code = 2217) 72 MG/DL BUN (test code = 2208) 45 MG/DL CREATININE (test code = 2214) 1.24 MG/DL eGFR (2020 CKD-EPI) (test co de = 42997) 51 ML/MIN/1.73 CALC BUN/CREAT (test code = [...] 19 U/L HIV 1/2 4TH GEN, RFLX [id number] 04:37:11* Test Item Value Reference Range Interpretation Comme nts HIV 1/2 4TH GEN, RFLX CONF ( test code = 3514) NON-REACTIVE NON-REACTIVE HIV AB/AG COMBO RFLX [id number] 00:00:00* Test Item Value Reference Range Interpretation Comme nts HIV 1/2 4TH GEN, RFLX CONF ( test code = 3514) NON-REACTIVE HIV AB/AG COMBO RFLX [id number] 00:00:00* Test Item Value Reference Range Interpretation Comme nts HIV 1/2 4TH GEN, RFLX CONF ( test code = 3514) NON-REACTIVE HIV AB/AG COMBO RFLX [id number] 00:00:00* Test Item Value Reference Range Interpretation Comme nts HIV 1/2 4TH GEN, RFLX CONF ( test code = 3514) NON-REACTIVE HIV AB/AG COMBO RFLX [id number] 00:00:00* Test Item Value Reference Range Interpretation Comme nts HIV 1/2 4TH GEN, RFLX CONF ( test code = 3514) NON-REACTIVE HIV AB/AG COMBO RFLX [id number] 00:00:00* Test Item Value Reference Range Interpretation Comme nts HIV 1/2 4TH GEN, RFLX CONF ( test code = 3514) NON-REACTIVE HIV AB/AG COMBO RFLX [id number] 00:00:00* Test Item Value Reference Range Interpretation Comme nts HIV 1/2 4TH GEN, RFLX CONF ( test code = 3514) NON-REACTIVE HIV AB/AG COMBO RFLX [id number] 00:00:00* Test Item Value Reference Range Interpretation Comme nts HIV 1/2 4TH GEN, RFLX CONF ( test code = 3514) NON-REACTIVE HIV AB/AG COMBO RFLX [id number] 00:00:00* Test Item Value Reference Range Interpretation Comme nts HIV 1/2 4TH GEN, RFLX CONF ( test code = 3514) NON-REACTIVE ALBUMIN/CREATININE RATIO, URINE, [id number] 01:16:34* Test Item Value Reference Range Interpretation Comme nts CREATININE, URINE, RANDOM (test code = 2072) 82.3 MG/DL NOT ESTAB ALBUMIN, URINE, RANDOM (test code = 10261) 10.4 MG/DL NOT ESTAB CALC ALBUMIN/CREAT, RND (test code = 94331) 126 MG/G <30 H Note: Albumin/Creatinine ratio reference interval reflects ADA and NKF guidelines. COMPREHENSIVE METABOLIC [id number] 00:35:57* Test Item Value Reference Range Interpretation Comme nts GLUCOSE (test code = 2217) 56 MG/DL 70-99 L BUN (test code = 2208) 39 MG/DL 6-20 H CREATININE (test code = 2214) 1.46 MG/DL 0.60-1.30 H eGFR (2020 CKD-EPI) (test code = 54948) 42 ML/MIN/1.73 >60 L CALC BUN/CREAT (test code = 2235) 27 RATIO 6-28 SODIUM (test code = 2231) 141 MEQ/L 133-146 POTASSIUM (test code = 2228) 5.1 MEQ/L 3.5-5.4 CHLORIDE (test code = 2215) 103 MEQ/L 95-107 CARBON DIOXIDE (test code = 2206) 22 MEQ/L 19-31 CALCIUM (test code = 220) 10.2 MG/DL 8.5-10.5 PROTEIN, TOTAL (test code = 2228) 8.1 G/DL 6.1-8.3 ALBUMIN (test code = 2200) 4.7 G/DL 3.5-5.2 CALC GLOBULIN (test code = 2240) 3.4 G/DL 1.9-3.7 CALC A/G RATIO (test code = 2233) 1.4 RATIO 1.0-2.6 BILIRUBIN, TOTAL (test code = 2206) <0.2 MG/DL See_Comment [Automated me ssage] The system which generated this result transmitted reference range: <=1.2. The reference range was not used to interpret this result as normal/abnormal. ALKALINE PHOSPHATASE (test code = 2203) 186 U/L 40-136 H AST (test code = 8) 23 U/L 9-40 ALT (test code = 2219) 24 U/L 5-40 LIPID [id number] 00:35:57* Test Item Value Reference Range Interpretation Comme nts CHOLESTEROL (test code = 2210) 251 MG/DL <200 H TRIGLYCERIDES (test code = 2232) 79 MG/DL <150 HDL CHOLESTEROL (test code = 0) 103 MG/DL >39 CALC LDL CHOL (test code = 2236) 130 MG/DL <100 H NOTE: CALCULATED LDL IS BASED ON WILLIAM-MARTINEZ METHOD WHICHINCLUDES ADJUSTABLE TRIGLYCERIDE:VLDL CHOLESTEROL RATIO.THIS FACTOR VARIES BY MEASURED TRIGLYCERIDE AND NON-HDLCHOLESTEROL CONCENTRATIONS WITH INCREASED CALCULATED LDL SEENIN HIGHER TRIGLYCERIDE OR LOWER NON-HDL SPECIMENS. FOR MOREINFORMATION, SEE CLIENT ANNOUNCEMENT AT [email or web address] RISK RATIO LDL/HDL (test code = 223) 1.26 RATIO <3.22 UNLESS OTHERW ISE INDICATED, ALL TESTING PERFORMED [facility] [employer] [address] [place] [address] [employer]: MARGI OCHOA M.D. CLIA NUMBER [id number] [facility] [place]. [id number] COMPREHENSIVE METABOLIC [id number] 00:00:00* Test Item Value Reference Range Interpretation Comme nts GLUCOSE (test code = 2217) 56 MG/DL BUN (test code = 2208) 39 MG/DL CREATININE (test code = 2214) 1.46 MG/DL eGFR (2020 CKD-EPI) (test co de = 55990) 42 ML/MIN/1.73 CALC BUN/CREAT (test code = [...] = 2219) 24 U/L MICROALBUMIN/CREATININE, RANDOM AND [id number] 00:00:00* Test Item Value Reference Range Interpretation Comme nts CREATININE, URINE, RANDOM (t est code = 207) 82.3 MG/DL ALBUMIN, URINE, RANDOM (test code = 50936) 10.4 MG/DL CALC ALBUMIN/CREAT, RND (liana t code = 70538) 126 MG/G MICROALBUMIN/CREATININE, RANDOM AND [id number] 00:00:00* Test Item Value Reference Range Interpretation Comme nts CREATININE, URINE, RANDOM (t est code = 2072) 82.3 MG/DL ALBUMIN, URINE, RANDOM (test code = 24900) 10.4 MG/DL CALC ALBUMIN/CREAT, RND (liana t code = 20578) 126 MG/G LIPID [id number] 00:00:00* Test Item Value Reference Range Interpretation Comme nts CHOLESTEROL (test code = 2210) 251 MG/DL TRIGLYCERIDES (test code = 2232) 79 MG/DL HDL CHOLESTEROL (test code = 2220) 103 MG/DL CALC LDL CHOL (test code = 2237) 130 MG/DL RISK RATIO LDL/HDL (test cod e = 2238) 1.26 RATIO LIPID [id number] 00:00:00* Test Item Value Reference Range Interpretation Comme nts CHOLESTEROL (test code = 2210) 251 MG/DL TRIGLYCERIDES (test code = 2232) 79 MG/DL HDL CHOLESTEROL (test code = 2220) 103 MG/DL CALC LDL CHOL (test code = 2237) 130 MG/DL RISK RATIO LDL/HDL (test cod e = 2238) 1.26 RATIO COMPREHENSIVE METABOLIC [id number] 00:00:00* Test Item Value Reference Range Interpretation Comme nts GLUCOSE (test code = 2217) 56 MG/DL BUN (test code = 2208) 39 MG/DL CREATININE (test code = 2214) 1.46 MG/DL eGFR (2020 CKD-EPI) (test co de = 85221) 42 ML/MIN/1.73 CALC BUN/CREAT (test code = [...] code = 2219) 24 U/L COMPREHENSIVE METABOLIC [id number] 00:00:00* Test Item Value Reference Range Interpretation Comme nts GLUCOSE (test code = 2217) 56 MG/DL BUN (test code = 2208) 39 MG/DL CREATININE (test code = 2214) 1.46 MG/DL eGFR (2020 CKD-EPI) (test co de = 06731) 42 ML/MIN/1.73 CALC BUN/CREAT (test code = [...] = 2219) 24 U/L MICROALBUMIN/CREATININE, RANDOM AND [id number] 00:00:00* Test Item Value Reference Range Interpretation Comme nts CREATININE, URINE, RANDOM (t est code = 207) 82.3 MG/DL ALBUMIN, URINE, RANDOM (test code = 08107) 10.4 MG/DL CALC ALBUMIN/CREAT, RND (liana t code = 57044) 126 MG/G MICROALBUMIN/CREATININE, RANDOM AND [id number] 00:00:00* Test Item Value Reference Range Interpretation Comme nts CREATININE, URINE, RANDOM (t est code = 2072) 82.3 MG/DL ALBUMIN, URINE, RANDOM (test code = 93429) 10.4 MG/DL CALC ALBUMIN/CREAT, RND (liana t code = 80769) 126 MG/G LIPID [id number] 00:00:00* Test Item Value Reference Range Interpretation Comme nts CHOLESTEROL (test code = 2210) 251 MG/DL TRIGLYCERIDES (test code = 2232) 79 MG/DL HDL CHOLESTEROL (test code = 2220) 103 MG/DL CALC LDL CHOL (test code = 2237) 130 MG/DL RISK RATIO LDL/HDL (test cod e = 2238) 1.26 RATIO LIPID [id number] 00:00:00* Test Item Value Reference Range Interpretation Comme nts CHOLESTEROL (test code = 2210) 251 MG/DL TRIGLYCERIDES (test code = 2232) 79 MG/DL HDL CHOLESTEROL (test code = 2220) 103 MG/DL CALC LDL CHOL (test code = 2237) 130 MG/DL RISK RATIO LDL/HDL (test cod e = 2238) 1.26 RATIO COMPREHENSIVE METABOLIC [id number] 00:00:00* Test Item Value Reference Range Interpretation Comme nts GLUCOSE (test code = 2217) 56 MG/DL BUN (test code = 2208) 39 MG/DL CREATININE (test code = 2214) 1.46 MG/DL eGFR (2020 CKD-EPI) (test co de = 66213) 42 ML/MIN/1.73 CALC BUN/CREAT (test code = [...] code = 2219) 24 U/L COMPREHENSIVE METABOLIC [id number] 00:00:00* Test Item Value Reference Range Interpretation Comme nts GLUCOSE (test code = 2217) 56 MG/DL BUN (test code = 2208) 39 MG/DL CREATININE (test code = 2214) 1.46 MG/DL eGFR (2020 CKD-EPI) (test co de = 49785) 42 ML/MIN/1.73 CALC BUN/CREAT (test code = [...] = 2219) 24 U/L MICROALBUMIN/CREATININE, RANDOM AND [id number] 00:00:00* Test Item Value Reference Range Interpretation Comme nts CREATININE, URINE, RANDOM (t est code = 2072) 82.3 MG/DL ALBUMIN, URINE, RANDOM (test code = 00480) 10.4 MG/DL CALC ALBUMIN/CREAT, RND (liana t code = 86327) 126 MG/G MICROALBUMIN/CREATININE, RANDOM AND [id number] 00:00:00* Test Item Value Reference Range Interpretation Comme nts CREATININE, URINE, RANDOM (t est code = 207) 82.3 MG/DL ALBUMIN, URINE, RANDOM (test code = 33755) 10.4 MG/DL CALC ALBUMIN/CREAT, RND (liana t code = 87263) 126 MG/G LIPID [id number] 00:00:00* Test Item Value Reference Range Interpretation Comme nts CHOLESTEROL (test code = 2210) 251 MG/DL TRIGLYCERIDES (test code = 2232) 79 MG/DL HDL CHOLESTEROL (test code = 2220) 103 MG/DL CALC LDL CHOL (test code = 2237) 130 MG/DL RISK RATIO LDL/HDL (test cod e = 2238) 1.26 RATIO LIPID [id number] 00:00:00* Test Item Value Reference Range Interpretation Comme nts CHOLESTEROL (test code = 2210) 251 MG/DL TRIGLYCERIDES (test code = 2232) 79 MG/DL HDL CHOLESTEROL (test code = 2220) 103 MG/DL CALC LDL CHOL (test code = 2237) 130 MG/DL RISK RATIO LDL/HDL (test cod e = 2238) 1.26 RATIO COMPREHENSIVE METABOLIC [id number] 00:00:00* Test Item Value Reference Range Interpretation Comme nts GLUCOSE (test code = 2217) 56 MG/DL BUN (test code = 2208) 39 MG/DL CREATININE (test code = 2214) 1.46 MG/DL eGFR (2020 CKD-EPI) (test co de = 98873) 42 ML/MIN/1.73 CALC BUN/CREAT (test code = [...] code = 2219) 24 U/L COMPREHENSIVE METABOLIC [id number] 00:00:00* Test Item Value Reference Range Interpretation Comme nts GLUCOSE (test code = 2217) 56 MG/DL BUN (test code = 2208) 39 MG/DL CREATININE (test code = 2214) 1.46 MG/DL eGFR (2020 CKD-EPI) (test co de = 69675) 42 ML/MIN/1.73 CALC BUN/CREAT (test code = [...] = 2219) 24 U/L MICROALBUMIN/CREATININE, RANDOM AND [id number] 00:00:00* Test Item Value Reference Range Interpretation Comme nts CREATININE, URINE, RANDOM (t est code = 2071) 82.3 MG/DL ALBUMIN, URINE, RANDOM (test code = 91266) 10.4 MG/DL CALC ALBUMIN/CREAT, RND (liana t code = 62772) 126 MG/G MICROALBUMIN/CREATININE, RANDOM AND [id number] 00:00:00* Test Item Value Reference Range Interpretation Comme nts CREATININE, URINE, RANDOM (t est code = 2071) 82.3 MG/DL ALBUMIN, URINE, RANDOM (test code = 84905) 10.4 MG/DL CALC ALBUMIN/CREAT, RND (liana t code = 12107) 126 MG/G LIPID [id number] 00:00:00* Test Item Value Reference Range Interpretation Comme nts CHOLESTEROL (test code = 2210) 251 MG/DL TRIGLYCERIDES (test code = 2232) 79 MG/DL HDL CHOLESTEROL (test code = 2220) 103 MG/DL CALC LDL CHOL (test code = 2237) 130 MG/DL RISK RATIO LDL/HDL (test cod e = 2238) 1.26 RATIO LIPID [id number] 00:00:00* Test Item Value Reference Range Interpretation Comme nts CHOLESTEROL (test code = 2210) 251 MG/DL TRIGLYCERIDES (test code = 2232) 79 MG/DL HDL CHOLESTEROL (test code = 2220) 103 MG/DL CALC LDL CHOL (test code = 2237) 130 MG/DL RISK RATIO LDL/HDL (test cod e = 2238) 1.26 RATIO COMPREHENSIVE METABOLIC [id number] 00:00:00* Test Item Value Reference Range Interpretation Comme nts GLUCOSE (test code = 2217) 56 MG/DL BUN (test code = 2208) 39 MG/DL CREATININE (test code = 2214) 1.46 MG/DL eGFR (2020 CKD-EPI) (test co de = 51401) 42 ML/MIN/1.73 CALC BUN/CREAT (test code = 2235) 27 RATIO SODIUM (test code = 2230) 141 MEQ/L POTASSIUM (test code = 2228) 5.1 MEQ/L CHLORIDE (test code = 2215) 103 MEQ/L CARBON DIOXIDE (test code = 6) 22 MEQ/L CALCIUM (test code = 2209) 10.2 MG/DL PROTEIN, TOTAL (test code = 2228) 8.1 G/DL ALBUMIN (test code = 2200) 4.7 G/DL CALC GLOBULIN (test code = 0) 3.4 G/DL CALC A/G RATIO (test code = 2234) 1.4 RATIO BILIRUBIN, TOTAL (test code = 2206) <0.2 MG/DL ALKALINE PHOSPHATASE (test code = 2203) 186 U/L AST (test code = 2217) 23 U/L ALT (test code = 2218) 24 U/L HEMOGLOBIN [id number] 03:34:07* Test Item Value Reference Range Interpretation Comme nts HEMOGLOBIN A1c (test code = 15247) 10.0 % 4.2-5.6 H [employer] GUIDELINES FOR HGB A1C: [...] OR LABORATORY CONSULTATION. CBC W/AUTO DIFF WITH [id number] 02:45:06* Test Item Value Reference Range Interpretation [...] = 1065) 0.0 /100 WBC'S See_Comment [Automated messa ge] The system which generated this result [...] 0.00-0.10 ABS NUCLEATED RBCS (test code = 99343) 0.00 K/UL 0.00-0.11 CBC W/AUTO [id number] 00:00:00* Test Item Value Reference Range Interpretation [...] ABS NUCLEATED RBCS (test cod e = 26339) 0.00 K/UL CBC W/AUTO [id number] 00:00:00* Test Item Value Reference Range Interpretation [...] ABS NUCLEATED RBCS (test cod e = 82633) 0.00 K/UL CBC W/AUTO [id number] 00:00:00* Test Item Value Reference Range Interpretation [...] ABS NUCLEATED RBCS (test cod e = 60398) 0.00 K/UL HEMOGLOBIN [id number] 00:00:00* Test Item Value Reference Range Interpretation Comme nts HEMOGLOBIN A1c (test code = 18922) 10.0 % HEMOGLOBIN [id number] 00:00:00* Test Item Value Reference Range Interpretation Comme nts HEMOGLOBIN A1c (test code = 36879) 10.0 % HEMOGLOBIN [id number] 00:00:00* Test Item Value Reference Range Interpretation Comme nts HEMOGLOBIN A1c (test code = 96269) 10.0 % CBC W/AUTO [id number] 00:00:00* Test Item Value Reference Range Interpretation [...] ABS NUCLEATED RBCS (test cod e = 43848) 0.00 K/UL CBC W/AUTO [id number] 00:00:00* Test Item Value Reference Range Interpretation [...] ABS NUCLEATED RBCS (test cod e = 13669) 0.00 K/UL CBC W/AUTO [id number] 00:00:00* Test Item Value Reference Range Interpretation [...] ABS NUCLEATED RBCS (test cod e = 39250) 0.00 K/UL HEMOGLOBIN [id number] 00:00:00* Test Item Value Reference Range Interpretation Comme nts HEMOGLOBIN A1c (test code = 02541) 10.0 % HEMOGLOBIN [id number] 00:00:00* Test Item Value Reference Range Interpretation Comme nts HEMOGLOBIN A1c (test code = 99519) 10.0 % HEMOGLOBIN [id number] 00:00:00* Test Item Value Reference Range Interpretation Comme nts HEMOGLOBIN A1c (test code = 51740) 10.0 % CBC W/AUTO [id number] 00:00:00* Test Item Value Reference Range Interpretation [...] ABS NUCLEATED RBCS (test cod e = 63038) 0.00 K/UL CBC W/AUTO [id number] 00:00:00* Test Item Value Reference Range Interpretation [...] ABS NUCLEATED RBCS (test cod e = 90795) 0.00 K/UL CBC W/AUTO [id number] 00:00:00* Test Item Value Reference Range Interpretation [...] ABS NUCLEATED RBCS (test cod e = 25520) 0.00 K/UL HEMOGLOBIN [id number] 00:00:00* Test Item Value Reference Range Interpretation Comme nts HEMOGLOBIN A1c (test code = 57289) 10.0 % HEMOGLOBIN [id number] 00:00:00* Test Item Value Reference Range Interpretation Comme nts HEMOGLOBIN A1c (test code = 34135) 10.0 % HEMOGLOBIN [id number] 00:00:00* Test Item Value Reference Range Interpretation Comme nts HEMOGLOBIN A1c (test code = 98693) 10.0 % CBC W/AUTO [id number] 00:00:00* Test Item Value Reference Range Interpretation [...] ABS NUCLEATED RBCS (test cod e = 46670) 0.00 K/UL CBC W/AUTO [id number] 00:00:00* Test Item Value Reference Range Interpretation [...] ABS NUCLEATED RBCS (test cod e = 43838) 0.00 K/UL CBC W/AUTO [id number] 00:00:00* Test Item Value Reference Range Interpretation [...] ABS NUCLEATED RBCS (test cod e = 22046) 0.00 K/UL HEMOGLOBIN [id number] 00:00:00* Test Item Value Reference Range Interpretation Comme nts HEMOGLOBIN A1c (test code = 42403) 10.0 % HEMOGLOBIN [id number] 00:00:00* Test Item Value Reference Range Interpretation Comme nts HEMOGLOBIN A1c (test code = 06309) 10.0 % HEMOGLOBIN [id number] 00:00:00* Test Item Value Reference Range Interpretation Comme nts HEMOGLOBIN A1c (test code = 56232) 10.0 % COMPREHENSIVE METABOLIC [id number] 00:00:00* Test Item Value Reference Range Interpretation Comme nts GLUCOSE (test code = 2217) 792 MG/DL BUN (test code = 2208) 59 MG/DL CREATININE (test code = 2214) 1.33 MG/DL eGFR AMER. (test cod e = 69562) 52 ML/MIN/1.73 eGFR NON- AMER. (test code = 76240) 45 ML/MIN/1.73 CALC BUN/CREAT (test code = [...] code = 2219) 36 U/L COMPREHENSIVE METABOLIC [id number] 00:00:00* Test Item Value Reference Range Interpretation Comme nts GLUCOSE (test code = 2217) 792 MG/DL BUN (test code = 2208) 59 MG/DL CREATININE (test code = 2214) 1.33 MG/DL eGFR AMER. (test cod e = 06206) 52 ML/MIN/1.73 eGFR NON- AMER. (test code = 86664) 45 ML/MIN/1.73 CALC BUN/CREAT (test code = [...] code = 2219) 36 U/L COMPREHENSIVE METABOLIC [id number] 00:00:00* Test Item Value Reference Range Interpretation Comme nts GLUCOSE (test code = 2217) 792 MG/DL BUN (test code = 2208) 59 MG/DL CREATININE (test code = 2214) 1.33 MG/DL eGFR AMER. (test cod e = 56156) 52 ML/MIN/1.73 eGFR NON- AMER. (test code = 69625) 45 ML/MIN/1.73 CALC BUN/CREAT (test code = [...] code = 2219) 36 U/L COMPREHENSIVE METABOLIC [id number] 00:00:00* Test Item Value Reference Range Interpretation Comme nts GLUCOSE (test code = 2217) 792 MG/DL BUN (test code = 2208) 59 MG/DL CREATININE (test code = 2214) 1.33 MG/DL eGFR AMER. (test cod e = 22469) 52 ML/MIN/1.73 eGFR NON- AMER. (test code = 60973) 45 ML/MIN/1.73 CALC BUN/CREAT (test code = [...] code = 2219) 36 U/L COMPREHENSIVE METABOLIC [id number] 00:00:00* Test Item Value Reference Range Interpretation Comme nts GLUCOSE (test code = 2217) 792 MG/DL BUN (test code = 2208) 59 MG/DL CREATININE (test code = 2214) 1.33 MG/DL eGFR AMER. (test cod e = 99587) 52 ML/MIN/1.73 eGFR NON- AMER. (test code = 82748) 45 ML/MIN/1.73 CALC BUN/CREAT (test code = [...] code = 2219) 36 U/L COMPREHENSIVE METABOLIC [id number] 00:00:00* Test Item Value Reference Range Interpretation Comme nts GLUCOSE (test code = 2217) 792 MG/DL BUN (test code = 2208) 59 MG/DL CREATININE (test code = 2214) 1.33 MG/DL eGFR AMER. (test cod e = 88928) 52 ML/MIN/1.73 eGFR NON- AMER. (test code = 65382) 45 ML/MIN/1.73 CALC BUN/CREAT (test code = [...] code = 2219) 36 U/L COMPREHENSIVE METABOLIC [id number] 00:00:00* Test Item Value Reference Range Interpretation Comme nts GLUCOSE (test code = 2217) 792 MG/DL BUN (test code = 2208) 59 MG/DL CREATININE (test code = 2214) 1.33 MG/DL eGFR AMER. (test cod e = 28237) 52 ML/MIN/1.73 eGFR NON- AMER. (test code = 55759) 45 ML/MIN/1.73 CALC BUN/CREAT (test code = [...] code = 2219) 36 U/L COMPREHENSIVE METABOLIC [id number] 00:00:00* Test Item Value Reference Range Interpretation Comme nts GLUCOSE (test code = 2217) 792 MG/DL BUN (test code = 2208) 59 MG/DL CREATININE (test code = 2214) 1.33 MG/DL eGFR AMER. (test cod e = 75549) 52 ML/MIN/1.73 eGFR NON- AMER. (test code = 39388) 45 ML/MIN/1.73 CALC BUN/CREAT (test code = [...] NOTE: (test code = 998) (NOTE) MICROALBUMIN, [id number] 00:00:00* Test Item Value Reference Range Interpretation Comme nts ALBUMIN, URINE, RANDOM (test code = 53765) 6.4 MG/DL MICROALBUMIN, [id number] 00:00:00* Test Item Value Reference Range Interpretation Comme nts ALBUMIN, URINE, RANDOM (test code = 27514) 6.4 MG/DL MICROALBUMIN, [id number] 00:00:00* Test Item Value Reference Range Interpretation Comme nts ALBUMIN, URINE, RANDOM (test code = 25362) 6.4 MG/DL MICROALBUMIN, [id number] 00:00:00* Test Item Value Reference Range Interpretation Comme nts ALBUMIN, URINE, RANDOM (test code = 01813) 6.4 MG/DL MICROALBUMIN, [id number] 00:00:00* Test Item Value Reference Range Interpretation Comme nts ALBUMIN, URINE, RANDOM (test code = 29892) 6.4 MG/DL MICROALBUMIN, [id number] 00:00:00* Test Item Value Reference Range Interpretation Comme nts ALBUMIN, URINE, RANDOM (test code = 02490) 6.4 MG/DL MICROALBUMIN, [id number] 00:00:00* Test Item Value Reference Range Interpretation Comme nts ALBUMIN, URINE, RANDOM (test code = 28193) 6.4 MG/DL MICROALBUMIN, [id number] 00:00:00* Test Item Value Reference Range Interpretation Comme nts ALBUMIN, URINE, RANDOM (test code = 33971) 6.4 MG/DL COMPREHENSIVE METABOLIC [id number] 00:00:00* Test Item Value Reference Range Interpretation Comme nts GLUCOSE (test code = 2217) 207 MG/DL BUN (test code = 2208) 45 MG/DL CREATININE (test code = 2214) 1.06 MG/DL eGFR AMER. (test cod e = 78935) 68 ML/MIN/1.73 eGFR NON- AMER. (test code = 30550) 59 ML/MIN/1.73 CALC BUN/CREAT (test code = [...] code = 2219) 35 U/L COMPREHENSIVE METABOLIC [id number] 00:00:00* Test Item Value Reference Range Interpretation Comme nts GLUCOSE (test code = 2217) 207 MG/DL BUN (test code = 2208) 45 MG/DL CREATININE (test code = 2214) 1.06 MG/DL eGFR AMER. (test cod e = 30524) 68 ML/MIN/1.73 eGFR NON- AMER. (test code = 19988) 59 ML/MIN/1.73 CALC BUN/CREAT (test code = [...] (test code = 2219) 35 U/L LIPID [id number] 00:00:00* Test Item Value Reference Range Interpretation Comme nts CHOLESTEROL (test code = 2210) 194 MG/DL TRIGLYCERIDES (test code = 2232) 80 MG/DL HDL CHOLESTEROL (test code = 2220) 75 MG/DL CALC LDL CHOL (test code = 2237) 102 MG/DL RISK RATIO LDL/HDL (test cod e = 2238) 1.36 RATIO LIPID [id number] 00:00:00* Test Item Value Reference Range Interpretation Comme nts CHOLESTEROL (test code = 2210) 194 MG/DL TRIGLYCERIDES (test code = 2232) 80 MG/DL HDL CHOLESTEROL (test code = 2220) 75 MG/DL CALC LDL CHOL (test code = 2237) 102 MG/DL RISK RATIO LDL/HDL (test cod e = 2238) 1.36 RATIO COMPREHENSIVE METABOLIC [id number] 00:00:00* Test Item Value Reference Range Interpretation Comme nts GLUCOSE (test code = 2217) 207 MG/DL BUN (test code = 2208) 45 MG/DL CREATININE (test code = 2214) 1.06 MG/DL eGFR AMER. (test cod e = 67802) 68 ML/MIN/1.73 eGFR NON- AMER. (test code = 85532) 59 ML/MIN/1.73 CALC BUN/CREAT (test code = [...] code = 2219) 35 U/L COMPREHENSIVE METABOLIC [id number] 00:00:00* Test Item Value Reference Range Interpretation Comme nts GLUCOSE (test code = 2217) 207 MG/DL BUN (test code = 2208) 45 MG/DL CREATININE (test code = 2214) 1.06 MG/DL eGFR AMER. (test cod e = 32209) 68 ML/MIN/1.73 eGFR NON- AMER. (test code = 32602) 59 ML/MIN/1.73 CALC BUN/CREAT (test code = 2235) 42 RATIO SODIUM (test code = 2231) 141 MEQ/L POTASSIUM (test code = 2228) 4.5 MEQ/L CHLORIDE (test code = 2215) 101 MEQ/L CARBON DIOXIDE (test code = 220) 28 MEQ/L CALCIUM (test code = 2209) [...] (test code = 2219) 35 U/L LIPID [id number] 00:00:00* Test Item Value Reference Range Interpretation Comme nts CHOLESTEROL (test code = 2210) 194 MG/DL TRIGLYCERIDES (test code = 2232) 80 MG/DL HDL CHOLESTEROL (test code = 2220) 75 MG/DL CALC LDL CHOL (test code = 2237) 102 MG/DL RISK RATIO LDL/HDL (test cod e = 2238) 1.36 RATIO LIPID [id number] 00:00:00* Test Item Value Reference Range Interpretation Comme nts CHOLESTEROL (test code = 2210) 194 MG/DL TRIGLYCERIDES (test code = 2232) 80 MG/DL HDL CHOLESTEROL (test code = 2220) 75 MG/DL CALC LDL CHOL (test code = 2237) 102 MG/DL RISK RATIO LDL/HDL (test cod e = 2238) 1.36 RATIO COMPREHENSIVE METABOLIC [id number] 00:00:00* Test Item Value Reference Range Interpretation Comme nts GLUCOSE (test code = 2217) 207 MG/DL BUN (test code = 2208) 45 MG/DL CREATININE (test code = 2214) 1.06 MG/DL eGFR AMER. (test cod e = 47756) 68 ML/MIN/1.73 eGFR NON- AMER. (test code = 48209) 59 ML/MIN/1.73 CALC BUN/CREAT (test code = 2235) 42 RATIO SODIUM (test code = 2231) 141 MEQ/L POTASSIUM (test code = 2228) 4.5 MEQ/L CHLORIDE (test code = 2215) 101 MEQ/L CARBON DIOXIDE (test code = 6) 28 MEQ/L CALCIUM (test code = 2209) [...] code = 2219) 35 U/L COMPREHENSIVE METABOLIC [id number] 00:00:00* Test Item Value Reference Range Interpretation Comme nts GLUCOSE (test code = 2217) 207 MG/DL BUN (test code = 2208) 45 MG/DL CREATININE (test code = 2214) 1.06 MG/DL eGFR AMER. (test cod e = 12107) 68 ML/MIN/1.73 eGFR NON- AMER. (test code = 30309) 59 ML/MIN/1.73 CALC BUN/CREAT (test code = [...] (test code = 2219) 35 U/L LIPID [id number] 00:00:00* Test Item Value Reference Range Interpretation Comme nts CHOLESTEROL (test code = 2210) 194 MG/DL TRIGLYCERIDES (test code = 2232) 80 MG/DL HDL CHOLESTEROL (test code = 2220) 75 MG/DL CALC LDL CHOL (test code = 2237) 102 MG/DL RISK RATIO LDL/HDL (test cod e = 2238) 1.36 RATIO LIPID [id number] 00:00:00* Test Item Value Reference Range Interpretation Comme nts CHOLESTEROL (test code = 2210) 194 MG/DL TRIGLYCERIDES (test code = 2232) 80 MG/DL HDL CHOLESTEROL (test code = 2220) 75 MG/DL CALC LDL CHOL (test code = 2237) 102 MG/DL RISK RATIO LDL/HDL (test cod e = 2238) 1.36 RATIO COMPREHENSIVE METABOLIC [id number] 00:00:00* Test Item Value Reference Range Interpretation Comme nts GLUCOSE (test code = 2217) 207 MG/DL BUN (test code = 2208) 45 MG/DL CREATININE (test code = 2214) 1.06 MG/DL eGFR AMER. (test cod e = 33888) 68 ML/MIN/1.73 eGFR NON- AMER. (test code = 38604) 59 ML/MIN/1.73 CALC BUN/CREAT (test code = [...] code = 2219) 35 U/L COMPREHENSIVE METABOLIC [id number] 00:00:00* Test Item Value Reference Range Interpretation Comme nts GLUCOSE (test code = 2217) 207 MG/DL BUN (test code = 2208) 45 MG/DL CREATININE (test code = 2214) 1.06 MG/DL eGFR AMER. (test cod e = 59232) 68 ML/MIN/1.73 eGFR NON- AMER. (test code = 36357) 59 ML/MIN/1.73 CALC BUN/CREAT (test code = [...] 1.5 RATIO BILIRUBIN, TOTAL (test code = 220) <0.2 MG/DL ALKALINE PHOSPHATASE (test code = 2204) 124 U/L AST (test code = 2218) 34 U/L ALT (test code = 2219) 35 U/L LIPID [id number] 00:00:00* Test Item Value Reference Range Interpretation Comme nts CHOLESTEROL (test code = 2210) 194 MG/DL TRIGLYCERIDES (test code = 2232) 80 MG/DL HDL CHOLESTEROL (test code = 2220) 75 MG/DL CALC LDL CHOL (test code = 2237) 102 MG/DL RISK RATIO LDL/HDL (test cod e = 2238) 1.36 RATIO LIPID [id number] 00:00:00* Test Item Value Reference Range Interpretation Comme nts CHOLESTEROL (test code = 2210) 194 MG/DL TRIGLYCERIDES (test code = 2232) 80 MG/DL HDL CHOLESTEROL (test code = 2220) 75 MG/DL CALC LDL CHOL (test code = 2237) 102 MG/DL RISK RATIO LDL/HDL (test cod e = 2238) 1.36 RATIO HEMOGLOBIN [id number] 00:00:00* Test Item Value Reference Range Interpretation Comme nts HEMOGLOBIN A1c (test code = 43832) 15.4 % CBC W/AUTO [id number] 00:00:00* Test Item Value Reference Range Interpretation [...] code = 1015) 314 K/UL CBC W/AUTO [id number] 00:00:00* Test Item Value Reference Range Interpretation [...] code = 1015) 314 K/UL CBC W/AUTO [id number] 00:00:00* Test Item Value Reference Range Interpretation [...] (test code = 1015) 314 K/UL HEMOGLOBIN [id number] 00:00:00* Test Item Value Reference Range Interpretation Comme nts HEMOGLOBIN A1c (test code = 58668) 15.4 % HEMOGLOBIN [id number] 00:00:00* Test Item Value Reference Range Interpretation Comme nts HEMOGLOBIN A1c (test code = 74525) 15.4 % HEMOGLOBIN [id number] 00:00:00* Test Item Value Reference Range Interpretation Comme nts HEMOGLOBIN A1c (test code = 98390) 15.4 % CBC W/AUTO [id number] 00:00:00* Test Item Value Reference Range Interpretation [...] code = 1015) 314 K/UL CBC W/AUTO [id number] 00:00:00* Test Item Value Reference Range Interpretation [...] code = 1015) 314 K/UL CBC W/AUTO [id number] 00:00:00* Test Item Value Reference Range Interpretation [...] (test code = 1015) 314 K/UL HEMOGLOBIN [id number] 00:00:00* Test Item Value Reference Range Interpretation Comme nts HEMOGLOBIN A1c (test code = 04088) 15.4 % HEMOGLOBIN [id number] 00:00:00* Test Item Value Reference Range Interpretation Comme nts HEMOGLOBIN A1c (test code = 10664) 15.4 % HEMOGLOBIN [id number] 00:00:00* Test Item Value Reference Range Interpretation Comme nts HEMOGLOBIN A1c (test code = 87923) 15.4 % CBC W/AUTO [id number] 00:00:00* Test Item Value Reference Range Interpretation [...] code = 1015) 314 K/UL CBC W/AUTO [id number] 00:00:00* Test Item Value Reference Range Interpretation [...] code = 1015) 314 K/UL CBC W/AUTO [id number] 00:00:00* Test Item Value Reference Range Interpretation [...] (test code = 1015) 314 K/UL HEMOGLOBIN [id number] 00:00:00* Test Item Value Reference Range Interpretation Comme nts HEMOGLOBIN A1c (test code = 66792) 15.4 % HEMOGLOBIN [id number] 00:00:00* Test Item Value Reference Range Interpretation Comme nts HEMOGLOBIN A1c (test code = 37493) 15.4 % HEMOGLOBIN [id number] 00:00:00* Test Item Value Reference Range Interpretation Comme nts HEMOGLOBIN A1c (test code = 25427) 15.4 % CBC W/AUTO [id number] 00:00:00* Test Item Value Reference Range Interpretation [...] code = 1015) 314 K/UL CBC W/AUTO [id number] 00:00:00* Test Item Value Reference Range Interpretation [...] code = 1015) 314 K/UL CBC W/AUTO [id number] 00:00:00* Test Item Value Reference Range Interpretation [...] (test code = 1015) 314 K/UL HEMOGLOBIN [id number] 00:00:00* Test Item Value Reference Range Interpretation Comme nts HEMOGLOBIN A1c (test code = 65894) 15.4 % HEMOGLOBIN [id number] 00:00:00* Test Item Value Reference Range Interpretation Comme nts HEMOGLOBIN A1c (test code = 78715) 15.4 % SARS-CoV-2 (COVID-19) by RT-PCR (HIGH RISK)2020-12-01 00:00:00* Test Item Value Reference Range Interpretation Comme nts SARS-CoV-2 INTERPRETATION (t est code = 88066) NEGATIVE SOURCE (test code = 77328) NOT SPECIFIED SARS-CoV-2 (COVID-19) by RT-PCR (HIGH RISK)2020-12-01 00:00:00* Test Item Value Reference Range Interpretation Comme nts SARS-CoV-2 INTERPRETATION (t est code = 08991) NEGATIVE SOURCE (test code = 52236) NOT SPECIFIED SARS-CoV-2 (COVID-19) by RT-PCR (HIGH RISK)2020-12-01 00:00:00* Test Item Value Reference Range Interpretation Comme nts SARS-CoV-2 INTERPRETATION (t est code = 14712) NEGATIVE SOURCE (test code = 98342) NOT SPECIFIED SARS-CoV-2 (COVID-19) by RT-PCR (HIGH RISK)2020-12-01 00:00:00* Test Item Value Reference Range Interpretation Comme nts SARS-CoV-2 INTERPRETATION (t est code = 20207) NEGATIVE SOURCE (test code = 71612) NOT SPECIFIED SARS-CoV-2 (COVID-19) by RT-PCR (HIGH RISK)2020-12-01 00:00:00* Test Item Value Reference Range Interpretation Comme nts SARS-CoV-2 INTERPRETATION (t est code = 18783) NEGATIVE SOURCE (test code = 75515) NOT SPECIFIED SARS-CoV-2 (COVID-19) by RT-PCR (HIGH RISK)2020-12-01 00:00:00* Test Item Value Reference Range Interpretation Comme nts SARS-CoV-2 INTERPRETATION (t est code = 30241) NEGATIVE SOURCE (test code = 50834) NOT SPECIFIED SARS-CoV-2 (COVID-19) by RT-PCR (HIGH RISK)2020-12-01 00:00:00* Test Item Value Reference Range Interpretation Comme nts SARS-CoV-2 INTERPRETATION (t est code = 32532) NEGATIVE SOURCE (test code = 14912) NOT SPECIFIED SARS-CoV-2 (COVID-19) by RT-PCR (HIGH RISK)2020-12-01 00:00:00* Test Item Value Reference Range Interpretation Comme nts SARS-CoV-2 INTERPRETATION (t est code = 24850) NEGATIVE SOURCE (test code = 02329) NOT SPECIFIED LIPID [id number] 00:00:00* Test Item Value Reference Range Interpretation Comme nts CHOLESTEROL (test code = 2210) 187 MG/DL TRIGLYCERIDES (test code = 2232) 105 MG/DL HDL CHOLESTEROL (test code = 2220) 69 MG/DL CALC LDL CHOL (test code = 2237) 98 MG/DL RISK RATIO LDL/HDL (test cod e = 2238) 1.42 RATIO LIPID [id number] 00:00:00* Test Item Value Reference Range Interpretation Comme nts CHOLESTEROL (test code = 2210) 187 MG/DL TRIGLYCERIDES (test code = 2232) 105 MG/DL HDL CHOLESTEROL (test code = 2220) 69 MG/DL CALC LDL CHOL (test code = 2237) 98 MG/DL RISK RATIO LDL/HDL (test cod e = 2238) 1.42 RATIO COMPREHENSIVE METABOLIC [id number] 00:00:00* Test Item Value Reference Range Interpretation Comme nts GLUCOSE (test code = 2217) 195 MG/DL BUN (test code = 2208) 25 MG/DL CREATININE (test code = 2214) 1.02 MG/DL eGFR AMER. (test cod e = 99311) 72 ML/MIN/1.73 eGFR NON- AMER. (test code = 04230) 62 ML/MIN/1.73 CALC BUN/CREAT (test code = [...] code = 2219) 46 U/L COMPREHENSIVE METABOLIC [id number] 00:00:00* Test Item Value Reference Range Interpretation Comme nts GLUCOSE (test code = 2217) 195 MG/DL BUN (test code = 2208) 25 MG/DL CREATININE (test code = 2214) 1.02 MG/DL eGFR AMER. (test cod e = 47430) 72 ML/MIN/1.73 eGFR NON- AMER. (test code = 92412) 62 ML/MIN/1.73 CALC BUN/CREAT (test code = [...] (test code = 2219) 46 U/L LIPID [id number] 00:00:00* Test Item Value Reference Range Interpretation Comme nts CHOLESTEROL (test code = 2210) 187 MG/DL TRIGLYCERIDES (test code = 2232) 105 MG/DL HDL CHOLESTEROL (test code = 2220) 69 MG/DL CALC LDL CHOL (test code = 2237) 98 MG/DL RISK RATIO LDL/HDL (test cod e = 2238) 1.42 RATIO LIPID [id number] 00:00:00* Test Item Value Reference Range Interpretation Comme nts CHOLESTEROL (test code = 2210) 187 MG/DL TRIGLYCERIDES (test code = 2232) 105 MG/DL HDL CHOLESTEROL (test code = 2220) 69 MG/DL CALC LDL CHOL (test code = 2237) 98 MG/DL RISK RATIO LDL/HDL (test cod e = 2238) 1.42 RATIO COMPREHENSIVE METABOLIC [id number] 00:00:00* Test Item Value Reference Range Interpretation Comme nts GLUCOSE (test code = 2217) 195 MG/DL BUN (test code = 2208) 25 MG/DL CREATININE (test code = 2214) 1.02 MG/DL eGFR AMER. (test cod e = 67424) 72 ML/MIN/1.73 eGFR NON- AMER. (test code = 41481) 62 ML/MIN/1.73 CALC BUN/CREAT (test code = [...] code = 2219) 46 U/L COMPREHENSIVE METABOLIC [id number] 00:00:00* Test Item Value Reference Range Interpretation Comme nts GLUCOSE (test code = 2217) 195 MG/DL BUN (test code = 2208) 25 MG/DL CREATININE (test code = 2214) 1.02 MG/DL eGFR AMER. (test cod e = 51489) 72 ML/MIN/1.73 eGFR NON- AMER. (test code = 52305) 62 ML/MIN/1.73 CALC BUN/CREAT (test code = [...] (test code = 2219) 46 U/L LIPID [id number] 00:00:00* Test Item Value Reference Range Interpretation Comme nts CHOLESTEROL (test code = 2210) 187 MG/DL TRIGLYCERIDES (test code = 2232) 105 MG/DL HDL CHOLESTEROL (test code = 2220) 69 MG/DL CALC LDL CHOL (test code = 2237) 98 MG/DL RISK RATIO LDL/HDL (test cod e = 2238) 1.42 RATIO LIPID [id number] 00:00:00* Test Item Value Reference Range Interpretation Comme nts CHOLESTEROL (test code = 2210) 187 MG/DL TRIGLYCERIDES (test code = 2232) 105 MG/DL HDL CHOLESTEROL (test code = 2220) 69 MG/DL CALC LDL CHOL (test code = 2237) 98 MG/DL RISK RATIO LDL/HDL (test cod e = 2238) 1.42 RATIO COMPREHENSIVE METABOLIC [id number] 00:00:00* Test Item Value Reference Range Interpretation Comme nts GLUCOSE (test code = 2217) 195 MG/DL BUN (test code = 2208) 25 MG/DL CREATININE (test code = 2214) 1.02 MG/DL eGFR AMER. (test cod e = 52771) 72 ML/MIN/1.73 eGFR NON- AMER. (test code = 16532) 62 ML/MIN/1.73 CALC BUN/CREAT (test code = [...] code = 2219) 46 U/L COMPREHENSIVE METABOLIC [id number] 00:00:00* Test Item Value Reference Range Interpretation Comme nts GLUCOSE (test code = 2217) 195 MG/DL BUN (test code = 2208) 25 MG/DL CREATININE (test code = 2214) 1.02 MG/DL eGFR AMER. (test cod e = 24764) 72 ML/MIN/1.73 eGFR NON- AMER. (test code = 04150) 62 ML/MIN/1.73 CALC BUN/CREAT (test code = [...] (test code = 2219) 46 U/L LIPID [id number] 00:00:00* Test Item Value Reference Range Interpretation Comme nts CHOLESTEROL (test code = 2210) 187 MG/DL TRIGLYCERIDES (test code = 2232) 105 MG/DL HDL CHOLESTEROL (test code = 2220) 69 MG/DL CALC LDL CHOL (test code = 2237) 98 MG/DL RISK RATIO LDL/HDL (test cod e = 2238) 1.42 RATIO LIPID [id number] 00:00:00* Test Item Value Reference Range Interpretation Comme nts CHOLESTEROL (test code = 2210) 187 MG/DL TRIGLYCERIDES (test code = 2232) 105 MG/DL HDL CHOLESTEROL (test code = 2220) 69 MG/DL CALC LDL CHOL (test code = 2237) 98 MG/DL RISK RATIO LDL/HDL (test cod e = 2238) 1.42 RATIO COMPREHENSIVE METABOLIC [id number] 00:00:00* Test Item Value Reference Range Interpretation Comme nts GLUCOSE (test code = 2217) 195 MG/DL BUN (test code = 2208) 25 MG/DL CREATININE (test code = 2214) 1.02 MG/DL eGFR AMER. (test cod e = 87448) 72 ML/MIN/1.73 eGFR NON- AMER. (test code = 47617) 62 ML/MIN/1.73 CALC BUN/CREAT (test code = [...] code = 2219) 46 U/L COMPREHENSIVE METABOLIC [id number] 00:00:00* Test Item Value Reference Range Interpretation Comme nts GLUCOSE (test code = 2217) 195 MG/DL BUN (test code = 2208) 25 MG/DL CREATININE (test code = 2214) 1.02 MG/DL eGFR AMER. (test cod e = 16315) 72 ML/MIN/1.73 eGFR NON- AMER. (test code = 81014) 62 ML/MIN/1.73 CALC BUN/CREAT (test code = [...] (test code = 2219) 46 U/L HEMOGLOBIN [id number] 00:00:00* Test Item Value Reference Range Interpretation Comme nts HEMOGLOBIN A1c (test code = 82396) 14.3 % HEMOGLOBIN [id number] 00:00:00* Test Item Value Reference Range Interpretation Comme nts HEMOGLOBIN A1c (test code = 41879) 14.3 % HEMOGLOBIN [id number] 00:00:00* Test Item Value Reference Range Interpretation Comme nts HEMOGLOBIN A1c (test code = 08341) 14.3 % HEMOGLOBIN [id number] 00:00:00* Test Item Value Reference Range Interpretation Comme nts HEMOGLOBIN A1c (test code = 54287) 14.3 % HEMOGLOBIN [id number] 00:00:00* Test Item Value Reference Range Interpretation Comme nts HEMOGLOBIN A1c (test code = 11613) 14.3 % HEMOGLOBIN [id number] 00:00:00* Test Item Value Reference Range Interpretation Comme nts HEMOGLOBIN A1c (test code = 04992) 14.3 % HEMOGLOBIN [id number] 00:00:00* Test Item Value Reference Range Interpretation Comme nts HEMOGLOBIN A1c (test code = 59116) 14.3 % HEMOGLOBIN [id number] 00:00:00* Test Item Value Reference Range Interpretation Comme nts HEMOGLOBIN A1c (test code = 11362) 14.3 % HEMOGLOBIN [id number] 00:00:00* Test Item Value Reference Range Interpretation Comme nts HEMOGLOBIN A1c (test code = 22740) 14.3 % HEMOGLOBIN [id number] 00:00:00* Test Item Value Reference Range Interpretation Comme nts HEMOGLOBIN A1c (test code = 11934) 14.3 % HEMOGLOBIN [id number] 00:00:00* Test Item Value Reference Range Interpretation Comme nts HEMOGLOBIN A1c (test code = 68834) 14.3 % HEMOGLOBIN [id number] 00:00:00* Test Item Value Reference Range Interpretation Comme nts HEMOGLOBIN A1c (test code = 41810) 14.3 % HEMOGLOBIN [id number] 00:00:00* Test Item Value Reference Range Interpretation Comme nts HEMOGLOBIN A1c (test code = 39319) 10.7 % HEMOGLOBIN [id number] 00:00:00* Test Item Value Reference Range Interpretation Comme nts HEMOGLOBIN A1c (test code = 68009) 10.7 % HEMOGLOBIN [id number] 00:00:00* Test Item Value Reference Range Interpretation Comme nts HEMOGLOBIN A1c (test code = 65730) 10.7 % HEMOGLOBIN [id number] 00:00:00* Test Item Value Reference Range Interpretation Comme nts HEMOGLOBIN A1c (test code = 14198) 10.7 % HEMOGLOBIN [id number] 00:00:00* Test Item Value Reference Range Interpretation Comme nts HEMOGLOBIN A1c (test code = 22544) 10.7 % HEMOGLOBIN [id number] 00:00:00* Test Item Value Reference Range Interpretation Comme nts HEMOGLOBIN A1c (test code = 79156) 10.7 % HEMOGLOBIN [id number] 00:00:00* Test Item Value Reference Range Interpretation Comme nts HEMOGLOBIN A1c (test code = 59379) 10.7 % HEMOGLOBIN [id number] 00:00:00* Test Item Value Reference Range Interpretation Comme nts HEMOGLOBIN A1c (test code = 28071) 10.7 % HEMOGLOBIN [id number] 00:00:00* Test Item Value Reference Range Interpretation Comme nts HEMOGLOBIN A1c (test code = 24680) 10.7 % HEMOGLOBIN [id number] 00:00:00* Test Item Value Reference Range Interpretation Comme nts HEMOGLOBIN A1c (test code = 62035) 10.7 % HEMOGLOBIN [id number] 00:00:00* Test Item Value Reference Range Interpretation Comme nts HEMOGLOBIN A1c (test code = 17341) 10.7 % HEMOGLOBIN [id number] 00:00:00* Test Item Value Reference Range Interpretation Comme nts HEMOGLOBIN A1c (test code = 27496) 10.7 % COMPREHENSIVE METABOLIC [id number] 00:00:00* Test Item Value Reference Range Interpretation Comme nts GLUCOSE (test code = 2217) 398 MG/DL BUN (test code = 2208) 39 MG/DL CREATININE (test code = 2214) 0.88 MG/DL eGFR AMER. (test cod e = 81139) 88 ML/MIN/1.73 eGFR NON- AMER. (test code = 06889) 76 ML/MIN/1.73 CALC BUN/CREAT (test code = [...] code = 2219) 13 U/L COMPREHENSIVE METABOLIC [id number] 00:00:00* Test Item Value Reference Range Interpretation Comme nts GLUCOSE (test code = 2217) 398 MG/DL BUN (test code = 2208) 39 MG/DL CREATININE (test code = 2214) 0.88 MG/DL eGFR AMER. (test cod e = 60321) 88 ML/MIN/1.73 eGFR NON- AMER. (test code = 84129) 76 ML/MIN/1.73 CALC BUN/CREAT (test code = [...] (test code = 2219) 13 U/L LIPID [id number] 00:00:00* Test Item Value Reference Range Interpretation Comme nts CHOLESTEROL (test code = 2210) 255 MG/DL TRIGLYCERIDES (test code = 2232) 144 MG/DL HDL CHOLESTEROL (test code = 2220) 62 MG/DL CALC LDL CHOL (test code = 2237) 164 MG/DL RISK RATIO LDL/HDL (test cod e = 2238) 2.65 RATIO LIPID [id number] 00:00:00* Test Item Value Reference Range Interpretation Comme nts CHOLESTEROL (test code = 2210) 255 MG/DL TRIGLYCERIDES (test code = 2232) 144 MG/DL HDL CHOLESTEROL (test code = 2220) 62 MG/DL CALC LDL CHOL (test code = 2237) 164 MG/DL RISK RATIO LDL/HDL (test cod e = 2238) 2.65 RATIO HEMOGLOBIN [id number] 00:00:00* Test Item Value Reference Range Interpretation Comme nts HEMOGLOBIN A1c (test code = 65275) 12.9 % HEMOGLOBIN [id number] 00:00:00* Test Item Value Reference Range Interpretation Comme nts HEMOGLOBIN A1c (test code = 15712) 12.9 % HEMOGLOBIN [id number] 00:00:00* Test Item Value Reference Range Interpretation Comme nts HEMOGLOBIN A1c (test code = 36628) 12.9 % COMPREHENSIVE METABOLIC [id number] 00:00:00* Test Item Value Reference Range Interpretation Comme nts GLUCOSE (test code = 2217) 398 MG/DL BUN (test code = 2208) 39 MG/DL CREATININE (test code = 2214) 0.88 MG/DL eGFR AMER. (test cod e = 25326) 88 ML/MIN/1.73 eGFR NON- AMER. (test code = 49310) 76 ML/MIN/1.73 CALC BUN/CREAT (test code = [...] code = 2219) 13 U/L COMPREHENSIVE METABOLIC [id number] 00:00:00* Test Item Value Reference Range Interpretation Comme nts GLUCOSE (test code = 2217) 398 MG/DL BUN (test code = 2208) 39 MG/DL CREATININE (test code = 2214) 0.88 MG/DL eGFR AMER. (test cod e = 58503) 88 ML/MIN/1.73 eGFR NON- AMER. (test code = 33276) 76 ML/MIN/1.73 CALC BUN/CREAT (test code = [...] 0.1 MG/DL ALKALINE PHOSPHATASE (test code = 220) 102 U/L AST (test code = 2218) 16 U/L ALT (test code = 2219) 13 U/L LIPID [id number] 00:00:00* Test Item Value Reference Range Interpretation Comme nts CHOLESTEROL (test code = 2210) 255 MG/DL TRIGLYCERIDES (test code = 2232) 144 MG/DL HDL CHOLESTEROL (test code = 2220) 62 MG/DL CALC LDL CHOL (test code = 2237) 164 MG/DL RISK RATIO LDL/HDL (test cod e = 2238) 2.65 RATIO LIPID [id number] 00:00:00* Test Item Value Reference Range Interpretation Comme nts CHOLESTEROL (test code = 2210) 255 MG/DL TRIGLYCERIDES (test code = 2232) 144 MG/DL HDL CHOLESTEROL (test code = 2220) 62 MG/DL CALC LDL CHOL (test code = 2237) 164 MG/DL RISK RATIO LDL/HDL (test cod e = 2238) 2.65 RATIO HEMOGLOBIN [id number] 00:00:00* Test Item Value Reference Range Interpretation Comme nts HEMOGLOBIN A1c (test code = 01966) 12.9 % HEMOGLOBIN [id number] 00:00:00* Test Item Value Reference Range Interpretation Comme nts HEMOGLOBIN A1c (test code = 94448) 12.9 % HEMOGLOBIN [id number] 00:00:00* Test Item Value Reference Range Interpretation Comme nts HEMOGLOBIN A1c (test code = 50288) 12.9 % COMPREHENSIVE METABOLIC [id number] 00:00:00* Test Item Value Reference Range Interpretation Comme nts GLUCOSE (test code = 2217) 398 MG/DL BUN (test code = 2208) 39 MG/DL CREATININE (test code = 2214) 0.88 MG/DL eGFR AMER. (test cod e = 40063) 88 ML/MIN/1.73 eGFR NON- AMER. (test code = 36985) 76 ML/MIN/1.73 CALC BUN/CREAT (test code = [...] code = 2219) 13 U/L COMPREHENSIVE METABOLIC [id number] 00:00:00* Test Item Value Reference Range Interpretation Comme nts GLUCOSE (test code = 2217) 398 MG/DL BUN (test code = 2208) 39 MG/DL CREATININE (test code = 2214) 0.88 MG/DL eGFR AMER. (test cod e = 29291) 88 ML/MIN/1.73 eGFR NON- AMER. (test code = 46989) 76 ML/MIN/1.73 CALC BUN/CREAT (test code = [...] (test code = 2219) 13 U/L LIPID [id number] 00:00:00* Test Item Value Reference Range Interpretation Comme nts CHOLESTEROL (test code = 2210) 255 MG/DL TRIGLYCERIDES (test code = 2232) 144 MG/DL HDL CHOLESTEROL (test code = 2220) 62 MG/DL CALC LDL CHOL (test code = 2237) 164 MG/DL RISK RATIO LDL/HDL (test cod e = 2238) 2.65 RATIO LIPID [id number] 00:00:00* Test Item Value Reference Range Interpretation Comme nts CHOLESTEROL (test code = 2210) 255 MG/DL TRIGLYCERIDES (test code = 2232) 144 MG/DL HDL CHOLESTEROL (test code = 2220) 62 MG/DL CALC LDL CHOL (test code = 2237) 164 MG/DL RISK RATIO LDL/HDL (test cod e = 2238) 2.65 RATIO HEMOGLOBIN [id number] 00:00:00* Test Item Value Reference Range Interpretation Comme nts HEMOGLOBIN A1c (test code = 36330) 12.9 % HEMOGLOBIN [id number] 00:00:00* Test Item Value Reference Range Interpretation Comme nts HEMOGLOBIN A1c (test code = 59263) 12.9 % HEMOGLOBIN [id number] 00:00:00* Test Item Value Reference Range Interpretation Comme nts HEMOGLOBIN A1c (test code = 20176) 12.9 % COMPREHENSIVE METABOLIC [id number] 00:00:00* Test Item Value Reference Range Interpretation Comme nts GLUCOSE (test code = 2217) 398 MG/DL BUN (test code = 8) 39 MG/DL CREATININE (test code = 2214) 0.88 MG/DL eGFR AMER. (test cod e = 26382) 88 ML/MIN/1.73 eGFR NON- AMER. (test code = 52348) 76 ML/MIN/1.73 CALC BUN/CREAT (test code = [...] code = 2219) 13 U/L COMPREHENSIVE METABOLIC [id number] 00:00:00* Test Item Value Reference Range Interpretation Comme nts GLUCOSE (test code = 2217) 398 MG/DL BUN (test code = 2208) 39 MG/DL CREATININE (test code = 2214) 0.88 MG/DL eGFR AMER. (test cod e = 23054) 88 ML/MIN/1.73 eGFR NON- AMER. (test code = 56038) 76 ML/MIN/1.73 CALC BUN/CREAT (test code = [...] (test code = 2219) 13 U/L LIPID [id number] 00:00:00* Test Item Value Reference Range Interpretation Comme nts CHOLESTEROL (test code = 2210) 255 MG/DL TRIGLYCERIDES (test code = 2232) 144 MG/DL HDL CHOLESTEROL (test code = 2220) 62 MG/DL CALC LDL CHOL (test code = 2237) 164 MG/DL RISK RATIO LDL/HDL (test cod e = 2238) 2.65 RATIO LIPID [id number] 00:00:00* Test Item Value Reference Range Interpretation Comme nts CHOLESTEROL (test code = 2210) 255 MG/DL TRIGLYCERIDES (test code = 2232) 144 MG/DL HDL CHOLESTEROL (test code = 2220) 62 MG/DL CALC LDL CHOL (test code = 2237) 164 MG/DL RISK RATIO LDL/HDL (test cod e = 2238) 2.65 RATIO HEMOGLOBIN [id number] 00:00:00* Test Item Value Reference Range Interpretation Comme nts HEMOGLOBIN A1c (test code = 53676) 12.9 % HEMOGLOBIN [id number] 00:00:00* Test Item Value Reference Range Interpretation Comme nts HEMOGLOBIN A1c (test code = 43059) 12.9 % HEMOGLOBIN [id number] 00:00:00* Test Item Value Reference Range Interpretation Comme nts HEMOGLOBIN A1c (test code = 26290) 12.9 % HEMOGLOBIN [id number] 00:00:00* Test Item Value Reference Range Interpretation Comme nts HEMOGLOBIN A1c (test code = 94714) 13.9 % CBC W/AUTO [id number] 00:00:00* Test Item Value Reference Range Interpretation [...] code = 1015) 272 K/UL CBC W/AUTO [id number] 00:00:00* Test Item Value Reference Range Interpretation [...] code = 1015) 272 K/UL CBC W/AUTO [id number] 00:00:00* Test Item Value Reference Range Interpretation [...] code = 1015) 272 K/UL COMPREHENSIVE METABOLIC [id number] 00:00:00* Test Item Value Reference Range Interpretation Comme nts GLUCOSE (test code = 2217) 241 MG/DL BUN (test code = 2208) 21 MG/DL CREATININE (test code = 2214) 0.83 MG/DL eGFR AMER. (test cod e = 40066) 94 ML/MIN/1.73 eGFR NON- AMER. (test code = 59263) 81 ML/MIN/1.73 CALC BUN/CREAT (test code = [...] code = 2219) 14 U/L COMPREHENSIVE METABOLIC [id number] 00:00:00* Test Item Value Reference Range Interpretation Comme nts GLUCOSE (test code = 2217) 241 MG/DL BUN (test code = 2208) 21 MG/DL CREATININE (test code = 2214) 0.83 MG/DL eGFR AMER. (test cod e = 09526) 94 ML/MIN/1.73 eGFR NON- AMER. (test code = 32241) 81 ML/MIN/1.73 CALC BUN/CREAT (test code = [...] (test code = 2219) 14 U/L LIPID [id number] 00:00:00* Test Item Value Reference Range Interpretation Comme nts CHOLESTEROL (test code = 2210) 255 MG/DL TRIGLYCERIDES (test code = 2232) 116 MG/DL HDL CHOLESTEROL (test code = 2220) 75 MG/DL CALC LDL CHOL (test code = 2237) 157 MG/DL RISK RATIO LDL/HDL (test cod e = 2238) 2.09 RATIO LIPID [id number] 00:00:00* Test Item Value Reference Range Interpretation [...] (test code = 2821) 0.892 UIU/ML HEMOGLOBIN [id number] 00:00:00* Test Item Value Reference Range Interpretation Comme nts HEMOGLOBIN A1c (test code = 36799) 13.9 % HEMOGLOBIN [id number] 00:00:00* Test Item Value Reference Range Interpretation Comme nts HEMOGLOBIN A1c (test code = 19559) 13.9 % HEMOGLOBIN [id number] 00:00:00* Test Item Value Reference Range Interpretation Comme nts HEMOGLOBIN A1c (test code = 94977) 13.9 % CBC W/AUTO [id number] 00:00:00* Test Item Value Reference Range Interpretation [...] code = 1015) 272 K/UL CBC W/AUTO [id number] 00:00:00* Test Item Value Reference Range Interpretation [...] code = 1015) 272 K/UL CBC W/AUTO [id number] 00:00:00* Test Item Value Reference Range Interpretation [...] code = 1015) 272 K/UL COMPREHENSIVE METABOLIC [id number] 00:00:00* Test Item Value Reference Range Interpretation Comme nts GLUCOSE (test code = 2217) 241 MG/DL BUN (test code = 2208) 21 MG/DL CREATININE (test code = 2214) 0.83 MG/DL eGFR AMER. (test cod e = 03627) 94 ML/MIN/1.73 eGFR NON- AMER. (test code = 73351) 81 ML/MIN/1.73 CALC BUN/CREAT (test code = [...] code = 2219) 14 U/L COMPREHENSIVE METABOLIC [id number] 00:00:00* Test Item Value Reference Range Interpretation Comme nts GLUCOSE (test code = 2217) 241 MG/DL BUN (test code = 2208) 21 MG/DL CREATININE (test code = 2214) 0.83 MG/DL eGFR AMER. (test cod e = 41799) 94 ML/MIN/1.73 eGFR NON- AMER. (test code = 79861) 81 ML/MIN/1.73 CALC BUN/CREAT (test code = [...] (test code = 2219) 14 U/L LIPID [id number] 00:00:00* Test Item Value Reference Range Interpretation Comme nts CHOLESTEROL (test code = 2210) 255 MG/DL TRIGLYCERIDES (test code = 2232) 116 MG/DL HDL CHOLESTEROL (test code = 2220) 75 MG/DL CALC LDL CHOL (test code = 2237) 157 MG/DL RISK RATIO LDL/HDL (test cod e = 2238) 2.09 RATIO LIPID [id number] 00:00:00* Test Item Value Reference Range Interpretation [...] (test code = 2821) 0.892 UIU/ML HEMOGLOBIN [id number] 00:00:00* Test Item Value Reference Range Interpretation Comme nts HEMOGLOBIN A1c (test code = 10410) 13.9 % HEMOGLOBIN [id number] 00:00:00* Test Item Value Reference Range Interpretation Comme nts HEMOGLOBIN A1c (test code = 53886) 13.9 % HEMOGLOBIN [id number] 00:00:00* Test Item Value Reference Range Interpretation Comme nts HEMOGLOBIN A1c (test code = 11929) 13.9 % CBC W/AUTO [id number] 00:00:00* Test Item Value Reference Range Interpretation [...] code = 1015) 272 K/UL CBC W/AUTO [id number] 00:00:00* Test Item Value Reference Range Interpretation [...] code = 1015) 272 K/UL CBC W/AUTO [id number] 00:00:00* Test Item Value Reference Range Interpretation [...] code = 1015) 272 K/UL COMPREHENSIVE METABOLIC [id number] 00:00:00* Test Item Value Reference Range Interpretation Comme nts GLUCOSE (test code = 2217) 241 MG/DL BUN (test code = 2208) 21 MG/DL CREATININE (test code = 2214) 0.83 MG/DL eGFR AMER. (test cod e = 85853) 94 ML/MIN/1.73 eGFR NON- AMER. (test code = 34324) 81 ML/MIN/1.73 CALC BUN/CREAT (test code = [...] code = 2219) 14 U/L COMPREHENSIVE METABOLIC [id number] 00:00:00* Test Item Value Reference Range Interpretation Comme nts GLUCOSE (test code = 2217) 241 MG/DL BUN (test code = 2208) 21 MG/DL CREATININE (test code = 2214) 0.83 MG/DL eGFR AMER. (test cod e = 03876) 94 ML/MIN/1.73 eGFR NON- AMER. (test code = 55707) 81 ML/MIN/1.73 CALC BUN/CREAT (test code = [...] (test code = 2219) 14 U/L LIPID [id number] 00:00:00* Test Item Value Reference Range Interpretation Comme nts CHOLESTEROL (test code = 2210) 255 MG/DL TRIGLYCERIDES (test code = 2232) 116 MG/DL HDL CHOLESTEROL (test code = 2220) 75 MG/DL CALC LDL CHOL (test code = 2237) 157 MG/DL RISK RATIO LDL/HDL (test cod e = 2238) 2.09 RATIO LIPID [id number] 00:00:00* Test Item Value Reference Range Interpretation [...] (test code = 2821) 0.892 UIU/ML HEMOGLOBIN [id number] 00:00:00* Test Item Value Reference Range Interpretation Comme nts HEMOGLOBIN A1c (test code = 76183) 13.9 % HEMOGLOBIN [id number] 00:00:00* Test Item Value Reference Range Interpretation Comme nts HEMOGLOBIN A1c (test code = 15342) 13.9 % HEMOGLOBIN [id number] 00:00:00* Test Item Value Reference Range Interpretation Comme nts HEMOGLOBIN A1c (test code = 35570) 13.9 % CBC W/AUTO [id number] 00:00:00* Test Item Value Reference Range Interpretation [...] code = 1015) 272 K/UL CBC W/AUTO [id number] 00:00:00* Test Item Value Reference Range Interpretation [...] code = 1015) 272 K/UL CBC W/AUTO [id number] 00:00:00* Test Item Value Reference Range Interpretation [...] code = 1015) 272 K/UL COMPREHENSIVE METABOLIC [id number] 00:00:00* Test Item Value Reference Range Interpretation Comme nts GLUCOSE (test code = 2217) 241 MG/DL BUN (test code = 2208) 21 MG/DL CREATININE (test code = 2214) 0.83 MG/DL eGFR AMER. (test cod e = 59138) 94 ML/MIN/1.73 eGFR NON- AMER. (test code = 32825) 81 ML/MIN/1.73 CALC BUN/CREAT (test code = [...] code = 2219) 14 U/L COMPREHENSIVE METABOLIC [id number] 00:00:00* Test Item Value Reference Range Interpretation Comme nts GLUCOSE (test code = 2217) 241 MG/DL BUN (test code = 2208) 21 MG/DL CREATININE (test code = 2214) 0.83 MG/DL eGFR AMER. (test cod e = 28855) 94 ML/MIN/1.73 eGFR NON- AMER. (test code = 15177) 81 ML/MIN/1.73 CALC BUN/CREAT (test code = [...] (test code = 2219) 14 U/L LIPID [id number] 00:00:00* Test Item Value Reference Range Interpretation Comme nts CHOLESTEROL (test code = 2210) 255 MG/DL TRIGLYCERIDES (test code = 2232) 116 MG/DL HDL CHOLESTEROL (test code = 2220) 75 MG/DL CALC LDL CHOL (test code = 2237) 157 MG/DL RISK RATIO LDL/HDL (test cod e = 2238) 2.09 RATIO LIPID [id number] 00:00:00* Test Item Value Reference Range Interpretation [...] (test code = 2821) 0.892 UIU/ML HEMOGLOBIN [id number] 00:00:00* Test Item Value Reference Range Interpretation Comme nts HEMOGLOBIN A1c (test code = 72572) 13.9 % HEMOGLOBIN [id number] 00:00:00* Test Item Value Reference Range Interpretation Comme nts HEMOGLOBIN A1c (test code = 29463) 13.9 % POC, COVID 19 Antigen + Flu by SofiaPOC, COVID 19 Antigen + Flu by Michelle Notes Date/Time Note Provider Source 2023-11-27 15:39:30 XH/tcODuvmgZrhmL7NXI sPQEMSpS8LMQN ATG7AyKD2AQB/noFP9DtyZap9p+3Awc20 28-11-22T15:39:30 Patient discharged to follow up with pcp. Signed paper work. 33711-3Jjibumuva department KppvZP0787-10-45N84:40:20[facility] NoteTXT1.2.840.981448.1.13.104.2. 7.2.310132|[id number] for patient olww37134-0HevcGXTPSBZVCCSEcmitgc ed C-CDA narrative text[address] Fl[id number] 358CFOFIYHDDAZGYHQJYQQGLB4002-84- 23T15:40:201.2.840.062370.1.72.3. 15|1.2.840.281960.1.13.104.2.7.2. [id number] [facility] 2023-11-27 12:41:19 9VxN5m8JyRtzp0ecOgyv I0fPpIQ810hwv eVORqdyNWPbqY6ziD4mlA58uabpENz491 28-11-222:41:19 Patient had blood work yesterday. Provider called her back today and told her to go to ED because he creatinine was high around 3. 66796-1Couuvupxm department Triage jfsvPW0797-18-82G33:41:49[facility] Triage noteTXT1.2.840.257089.1.13.104.2. 7.2.030727|[id number] for patient ntnt93849-6Dutvfnymr department NoteLNNARRATIVEFormatted C-CDA narrative [id number] Weston RNUT[address]Qu[id number] 544IUTMTMOCDRIUHWAFCYASGJ5524-30- 23T12:41:491.2.840.623351.1.72.3. 15|1.2.840.228048.1.13.104.2.7.2. [id number] Maximus Weston RN [facility]"
[2024-02-26] MEDS ORDERED: D10W 250 ML IV ONE (18:41)
[2024-02-26] MEDS ORDERED: NA CHLORIDE 0.9% 1,000 ML ONE ×2 (18:41→20:00)
[2024-02-26 18:56] LABS: Absolute Basophils 0.1 K/uL (0-0.5); Absolute Eosinophils 0.1 K/uL (0-0.5); Absolute Lymphocytes (CBC) 1.8 K/uL (0.7-4.9); Absolute Monocytes 0.2 K/uL (0.1-1.3); Absolute Neutrophil 5.3 K/uL (1.8-8.0); Basophils % 1.2 % (0-1.3); Eosinophils % 1.7 % (0-4.4); Hematocrit 29.3 % (36.0-45.0); Hemoglobin 9.6 g/dL (12.0-15.0); Lymphocytes % 23.8 % (15.3-44.8); MCH 28.7 pg (27.0-35.0); MCHC 32.7 g/dL (32.0-36.0); MCV 87.7 fL (80-100); MPV 9.1 fL (7.6-11.3); Monocytes % 2.8 % (3.3-12.3); Neutrophils % 70.5 % (41.7-73.7); Platelets 273 thou/uL (152-406); RBC Red Blood Cell Count 3.34 M/uL (3.86-4.86); Red Cell Distribution Width 14.9 % (12.1-15.2)
[2024-02-26] MEDS ORDERED: D5 0.9 NS 1,000 ML IV ONE (19:07)
[2024-02-26 19:12] LABS: Albumin 3.5 g/dL (3.4-5.0); Albumin/Globulin Ratio 0.9 (1.1-1.8); Anion Gap 10.5 mEq/L (5.0-15.0); Bilirubin Total 0.1 mg/dL (0.2-1.0); Globulin 4.1 g/dL (2.3-3.5); Potassium 4.5 mEq/L (3.5-5.1); Protein, Total 7.6 g/dL (6.4-8.2)
[2024-02-26] MEDS ORDERED: VANCOMYCIN 1 GM/VIAL ONE (19:39)
[2024-02-26] MEDS ORDERED: NA CHLORIDE 0.9% 250 ML ONE (19:39)
[2024-02-26] MEDS ORDERED: CEFEPIME 1 GM/VIAL ONE (19:40)
[2024-02-26] MEDS ORDERED: NA CHLORIDE 0.9% 100 ML ONE (19:40)
--- NOTE | 2024-02-26 19:57 | RAD REPORT ---
EXAM DESCRIPTION: RAD - Elbow Right 2 View - 02/26/2024 7:49 pm CLINICAL HISTORY: Elbow pain FINDINGS: Limited 2 series No fracture or dislocation seen
--- NOTE | 2024-02-26 20:41 | RAD REPORT ---
EXAM DESCRIPTION: Shelley Single View02/26/2024 6:53 pm CLINICAL HISTORY: Seizure COMPARISON: 2022 FINDINGS: Mild patchy lung opacities bilaterally. The heart is mildly enlarged IMPRESSION: Mild patchy lung opacities bilaterally may indicate a mild pneumonia or pneumonitis
--- NOTE | 2024-02-26 20:41 | RAD REPORT ---
EXAM DESCRIPTION: CT - Head C Spine Cap Paul Naidu - 02/26/2024 8:14 pm CLINICAL HISTORY: . Seizure .Head and neck injury with chest and abdominal pain status post fall. He ad and neck pain . TECHNIQUE: Computed axial tomography of the head and cervical spine was obtained Computed axial tomography of the chest, abdomen and pelvis was obtained. 100 cc Isovue-300 was given intravenously coronal and sagittal reconstruction was performed. All CT scans are performed using dose optimization technique as appropriate and may include automated exposure control or mA/KV adjustment according to patient size. COMPARISON: 2022 FINDINGS: An intracranial bleed is not seen. The ventricles are normal in caliber. An extra-axial fl uid collection is not noted. Fluid within the sinuses is not seen A cervical fracture is not seen. No dislocation is seen. A mediastinal hematoma is not noted. A pleural effusion is not present. A lung contusion is not seen. Aberrant right subclavian artery A few small patchy lung opacities are present bilaterally The liver, spleen, pancreas, adrenals, kidneys and bladder do not demonstrate an acute traumatic inju ry IMPRESSION: No acute intracranial abnormality is seen A cervical fracture is not visualized. If the patient continues have symptoms to suggest intracranial /spinal cord pathology then MRI would be recommended. No acute traumatic injury involving the chest, abdomen or pelvis is seen. A few small patchy lung opacities bilaterally may indicate mild pneumonia or pneumonitis
--- NOTE | 2024-02-26 20:51 | ER ---
Nurse's Notes [facility] Name: Khris Salazar Age: 58 yrs Sex: Female : 1965 Arrival Date: 02/26/2024 Time: 18:15 Bed 4 Private MD: Diagnosis: Altered mental status, unspecified;Hypothermia, initial encounter;Severe sepsis without septic shock;Pneumonia due to other specified bacteria;Hypotension, unspecified;Unspecified atrial fibrillation-with rvr;Unspecified kidney failure Presentation: 02/25 18:23 Coronavirus screen: At this time, the client does not indicate any symptoms associated as6 with coronavirus-19. Ebola Screen: No symptoms or risks identified at this time. Initial Sepsis Screen: Does the patient meet any 2 criteria? No. Patient's initial sepsis screen is negative. Does the patient have a suspected source of infection? No. Patient's initial sepsis screen is negative. Risk Assessment: Do you want to hurt yourself or someone else? Patient reports no desire to harm self or others. Onset of symptoms was February 26, 2024. 18:23 Acuity: DINO 2 as6 18:23 Method Of Arrival: EMS: [facility] as6 18:48 Chief complaint: EMS states: called out for altered mental status, last known normal as6 was around 9 am this morning. when EMS got there HR was around 150 a-fib RVR, cold, diaphoretic and altered. Historical: - Allergies: 18:22 No Known Allergies; as6 - Home Meds: 21:54 Levemir FlexTouch U-100 Insuln 100 unit/mL (3 mL) subcutaneous inpn 40 unit nightly jh8 [Active]; lisinopril Oral [Active]; losartan-hydrochlorothiazide 100-12.5 mg Oral tab 1 tab once daily [Active]; Victoza 2-Arian 0.6 mg/0.1 mL (18 mg/3 mL) subcutaneous pnij [Active]; - PMHx: 18:22 Diabetes - IDDM; Hypertension; as6 - Immunization history:: Adult Immunizations up to date. - Infectious Disease History:: Denies. - Social history:: Smoking status: Patient denies any tobacco usage or history of. - Family history:: not pertinent. - Hospitalizations: : No recent hospitalization is reported. Screenin:19 [facility] ED Fall Risk Assessment (Adult) History of falling in the last 3 months, rs5 including since admission No falls in past 3 months (0 pts) Confusion or Disorientation Yes (5 pts) Intoxicated or Sedated No (0 pts) Impaired Gait Yes (1 pt) Mobility Assist Device Used Yes (1 pt) Altered Elimination No (0 pt) Score/Fall Risk Level 3 or more points = High Risk Oriented to surroundings, Maintained a safe environment, Hourly rounding (assess needs \T\ fall precautionary measures) done. 18:19 Abuse screen: Denies threats or abuse. Nutritional screening: No deficits noted. rs5 Tuberculosis screening: No symptoms or risk factors identified. Assessment: 18:56 General: Appears ill, Behavior is cooperative, drowsy. Pain: Denies pain. Neuro: Level as6 of Consciousness is obeys commands, lethargic, Oriented to person, place. Cardiovascular: Capillary refill is > 3 seconds. Respiratory: Respiratory effort is even, unlabored, Respiratory pattern is regular, symmetrical. Derm: Skin is clammy, diaphoretic, Skin temperature is cold. 19:16 Reassessment: Patient appears in no apparent distress at this time. Patient and/or km8 family updated on plan of care and expected duration. Pain level reassessed. Patient is alert, oriented x 3, equal unlabored respirations, skin warm/dry/pink. General: Appears ill, Behavior is cooperative, appropriate for age. Pain: Denies pain. Neuro: Level of Consciousness is awake, alert, obeys commands, Oriented to person, place, time. Cardiovascular: Denies chest pain, shortness of breath, cool to touch. Respiratory: Airway is patent Respiratory effort is even, unlabored, Respiratory pattern is regular, symmetrical. GI: No signs and/or symptoms were reported involving the gastrointestinal system. : No signs and/or symptoms were reported regarding the genitourinary system. EENT: No signs and/or symptoms were reported regarding the EENT system. Derm: Skin is intact, is healthy with good turgor, Skin is clammy, Skin is normal, Skin temperature is cool. Musculoskeletal: No signs and/or symptoms reported regarding the musculoskeletal system. Range of motion: intact in all extremities. Vital Signs: 18:23 BP 91 / 53; Pulse 110; Resp 15 S; Pulse Ox 99% on R/A; Weight 77.11 kg (R); Height 5 as6 ft. 2 in. (R); Pain 0/10; 18:37 Temp 86.7(R); as6 19:49 BP 99 / 59; rn 19:54 BP 99 / 59; Pulse 112; Resp 20; Pulse Ox 98% on R/A; Pain 0/10; jh8 19:56 Temp 91.9(O); jh8 20:30 BP 94 / 82; Pulse 119; Resp 20; MAP 87 mmHg; jh8 21:42 BP 122 / 64; Pulse 99; Resp 18; Pulse Ox 98% on R/A; Pain 0/10; jh8 22:30 BP 96 / 58; Pulse 105; Resp 20; Temp 97.7(O); Pulse Ox 98% on R/A; jh8 18:23 Body Mass Index 31.09 (77.11 kg, 157.48 cm) as6 18:23 Pain Scale: Adult as6 19:54 Pain Scale: Adult jh8 21:42 Pain Scale: Adult jh8 Gustine Coma Score: 19:16 Eye Response: spontaneous(4). Motor Response: obeys commands(6). Verbal Response: km8 oriented(5). Total: 15. ED Course: 18:18 Patient arrived in ED. rn 18:18 Peewee Pal MD is Attending Physician. rn 18:19 Hany Torres, CIARRA is Primary Nurse. rs5 18:19 Patient has correct armband on for positive identification. Placed in gown. Bed in low rs5 position. Call light in reach. Side rails up X2. 18:19 No provider procedures requiring assistance completed. rs5 18:23 Arm band placed on. as6 18:24 Triage completed. as6 18:48 Blood Culture Adult (2) Sent. ld2 18:48 CBC with Diff Sent. ld2 18:48 CMP Sent. ld2 18:48 Lactate w/ 2H reflex if indic. Sent. ld2 18:48 Protime (+inr) Sent. ld2 18:48 Ptt, Activated Sent. ld2 18:55 Chest Single View XRAY In Process Unspecified. EDMS 18:55 Maintain EMS IV. Dressing intact. Good blood return noted. Site clean \T\ dry. Gauge \T\ as 6 site: 18g left hand and 20g right fa. Thermoregulation: heating blanket applied warm intravenous fluids. 19:16 Client placed on continuous cardiac and pulse oximetry monitoring. NIBP monitoring km8 applied. shelter monitor on. Pulse ox on. NIBP on. 19:50 XRAY Elbow RIGHT 2 view In Process Unspecified. EDMS 20:16 CT Traumagram (Head C Spine CAP W Con) In Process Unspecified. EDMS 20:31 Attending Physician role handed off by Peewee Pal MD stephanie 20:31 Stuart Taylor MD is Attending Physician. [facility] 20:47 Osei Roger MD is Hospitalizing Provider. [facility] 21:23 Primary Nurse role handed off by Hany Torres RN as6 21:55 Provided Education on: admit, verbalizes understanding. [facility] 21:56 Patient admitted, IV remains in place. [facility] Administered Medications: 18:46 Drug: NS 0.9% IV 1000 ml IV at 1000 ml once Route: IV; Rate: 1000 ml; Site: left hand; as6 21:56 Follow up: Response: No adverse reaction; IV Status: Completed infusion [facility] 18:46 Drug: D10 in Water IVP 250 ml IVP once Route: IVP; Site: left hand; as6 19:36 Follow up: Response: No adverse reaction [facility] 19:16 Drug: D5-NS IV 1000 ml IV at 125 ml/hr continuous Route: IV; Rate: 125 ml/hr; Site: [facility] right forearm; 21:59 Follow up: Response: No adverse reaction; IV Status: Completed infusion [facility] 21:59 Follow up: Response: No adverse reaction [facility] 19:42 Drug: Cefepime IVPB 1 grams IVPB at 200 ml/hr once over 30 mins; (mix in NS 100 mL) [facility] Route: IVPB; Rate: 200 ml/hr; Infused Over: 30 mins; Site: left antecubital; 21:58 Follow up: Response: No adverse reaction; IV Status: Completed infusion [facility] 19:43 Drug: vancoMYCIN IVPB 1 grams IVPB once over 2 hrs Route: IVPB; Infused Over: 2 hrs; [facility] Site: right forearm; 21:58 Follow up: Response: No adverse reaction; IV Status: Completed infusion [facility] 20:01 Drug: NS 0.9% IV 1000 ml IV at 1000 ml once Route: IV; Rate: 1000 ml; Site: left hand; [facility] 21:58 Follow up: Response: No adverse reaction; IV Status: Completed infusion [facility] 21:05 Drug: Heparin (VA-Bolus No thrombolytic) - HEParin IVP 60 units/kg IVP once; Max 5000 8 units {Co-Signature: hardik (Halima Bustamante RN).} Route: IVP; Site: left hand; 21:57 Follow up: Response: No adverse reaction [facility] 21:06 Drug: Heparin (VA Drip) 12 units/kg/[place] - ([place] [address] units, D5W IV 500 ml) IV at [facility] calculated rate Per protocol; Max initial rate 1000 units/hr {Co-Signature: hardik (Halima Bustamante RN).} Route: IV; Rate: 1000 units/hr; Site: left hand; 21:57 Follow up: Response: No adverse reaction [facility] 22:32 Follow up: IV Status: Infusion continued upon admission [facility] 21:08 Drug: Famotidine IVP 20 mg IVP once; dilute with 10 mL 0.9% NaCl; give over [address] [facility] Route: IVP; Site: right forearm; 21:57 Follow up: Response: No adverse reaction [facility] Medication: 18:51 VIS not applicable for this client. rs5 Outcome: 20:50 Decision to Hospitalize by Provider. stephanie 21:55 Admitted to ICU accompanied by nurse, room 4, on monitor, with chart, Report called to [facility] Stephanie LAFLEUR 21:55 Condition: stable 21:55 Instructed on the need for admit, 22:20 Patient left the ED. cm10 Signatures: Dispatcher [employer] EDStuart Ibarra MD MD cha Nieto, Roman, MD MD rn Slawson, Ashby, RN RN as6 Hany Torres, RN RN rs5 Janie Cardoza, RN RN cm10 Halima Bustamante, RN RN km8 Ricardo Mcintosh, RN RN jh8 Marta Estrella RN RN ld2 Halima Bustamante RN km8
--- NOTE | 2024-02-26 20:51 | EDPHYS ---
Physician Documentation [facility] Name: Khris Salazar Age: 58 yrs Sex: Female : 1965 Arrival Date: 02/26/2024 Time: 18:15 Bed 4 Private MD: ED Physician Stuart Taylor HPI: 02/25 18:23 This 58 yrs old Female presents to ER via Unassigned with complaints of ams. rn 18:23 The patient presents with decreased responsiveness. Onset: The symptoms/episode rn began/occurred at an unknown time. Possible causes: unknown. Current symptoms: In the emergency department the patient's symptoms have improved. The patient has not experienced similar symptoms in the past. EMS reports called out for decreased responsiveness and altered mental status. Last seen normal at about 9 AM. 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 No seizure activity noted. They report she was confused and not making sense when she started to wake up. No history of stroke. Patient denies recent illness. Denies chest pain or shortness of breath. Denies abdominal pain or vomiting or diarrhea. Does report medication was changed recently but cannot recall which one. Historical: - Allergies: 18:22 No Known Allergies; as6 - Home Meds: 21:54 Levemir FlexTouch U-100 Insuln 100 unit/mL (3 mL) subcutaneous inpn 40 unit nightly jh8 [Active]; lisinopril Oral [Active]; losartan-hydrochlorothiazide 100-12.5 mg Oral tab 1 tab once daily [Active]; Victoza 2-Arian 0.6 mg/0.1 mL (18 mg/3 mL) subcutaneous pnij [Active]; - PMHx: 18:22 Diabetes - IDDM; Hypertension; as6 - Immunization history:: Adult Immunizations up to date. - Infectious Disease History:: Denies. - Social history:: Smoking status: Patient denies any tobacco usage or history of. - Family history:: not pertinent. - Hospitalizations: : No recent hospitalization is reported. ROS: 18:23 Constitutional: Negative for fever, chills, and weight loss, Eyes: Negative for injury, rn pain, redness, and discharge, Neck: Negative for injury, pain, and swelling, Cardiovascular: Negative for chest pain, palpitations, and edema, Respiratory: Negative for shortness of breath, cough, wheezing, and pleuritic chest pain, Abdomen/GI: Negative for abdominal pain, nausea, vomiting, diarrhea, and constipation, : Negative for injury, bleeding, discharge, and swelling, MS/Extremity: Negative for injury and deformity, Skin: Negative for injury, rash, and discoloration, Neuro: Negative for focal weakness or numbness Exam: 18:23 Constitutional: This is a well developed, well nourished patient who is awake, alert, rn and in no acute distress. Head/Face: Normocephalic, atraumatic. Eyes: Pupils equal round and reactive to light, extra-ocular motions intact. ENT: Dry mucous membranes, no tongue fasciculations. Evidence of bitten tongue without active bleeding noted. Neck: No midline cervical tenderness. No meningismus Cardiovascular: Regular rate and rhythm. No pulse deficits. Respiratory: No increased work of breathing, no retractions or nasal flaring. Abdomen/GI: Soft, non-tender Back: No spinal tenderness MS/ Extremity: Pulses equal, no cyanosis. Neurovascular intact. Full, normal range of motion. Equal circumference. Neuro: Awake and alert, GCS 15, oriented to person, place, not time. Cranial nerves II-XII grossly intact. Motor strength 4/5 in all extremities. Sensory grossly intact. Vital Signs: 18:23 BP 91 / 53; Pulse 110; Resp 15 S; Pulse Ox 99% on R/A; Weight 77.11 kg (R); Height 5 as6 ft. 2 in. (R); Pain 0/10; 18:37 Temp 86.7(R); as6 19:49 BP 99 / 59; rn 19:54 BP 99 / 59; Pulse 112; Resp 20; Pulse Ox 98% on R/A; Pain 0/10; jh8 19:56 Temp 91.9(O); jh8 20:30 BP 94 / 82; Pulse 119; Resp 20; MAP 87 mmHg; jh8 21:42 BP 122 / 64; Pulse 99; Resp 18; Pulse Ox 98% on R/A; Pain 0/10; jh8 22:30 BP 96 / 58; Pulse 105; Resp 20; Temp 97.7(O); Pulse Ox 98% on R/A; jh8 18:23 Body Mass Index 31.09 (77.11 kg, 157.48 cm) as6 18:23 Pain Scale: Adult as6 19:54 Pain Scale: Adult jh8 21:42 Pain Scale: Adult jh8 Cecille Coma Score: 19:16 Eye Response: spontaneous(4). Motor Response: obeys commands(6). Verbal Response: km8 oriented(5). Total: 15. MDM: 18:18 Patient medically screened. rn 19:33 ED course: Patient more alert now. States she ate breakfast and took her insulin long rn and short acting this morning, skipped lunch, was feeling bad so was walking home and that is the last thing she remembered. Son states got home later and found her sitting upright, altered, diaphoretic, gave her glucose/juice and seem to help her. Patient states felt like her blood sugar was low at the time on her way home which is why she was going home.. 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 No focal neurological deficit on exam. Patient continues to improve with time. The confusing part is the hypothermia and then also complicated by the fact of new onset atrial fibrillation with RVR.. 02/25 18:23 Order name: Blood Culture Adult (2) rn 02/25 18:23 Order name: CBC with Diff; Complete Time: 19:14 rn 02/25 18:23 Order name: CMP; Complete Time: 19:14 rn 02/25 18:23 Order name: Lactate w/ 2H reflex if indic.; Complete Time: 19:14 rn 02/25 18:23 Order name: Protime (+inr) rn 02/25 18:23 Order name: Ptt, Activated rn 02/25 18:23 Order name: Urinalysis w/ reflexes rn 02/25 18:50 Order name: Glucose, Ancillary Testing; Complete Time: 18:52 EDMS 02/25 19:58 Order name: Glucose, Ancillary Testing; Complete Time: 20:31 EDMS 02/25 20:46 Order name: TSH stephanie 02/25 20:46 Order name: Flu stephanie 02/25 20:46 Order name: SARS RAPID stephanie 02/25 21:12 Order name: Magnesium EDMS 02/25 21:12 Order name: CBC with Automated Diff EDMS 02/25 21:12 Order name: CBC with Automated Diff EDMS 02/25 21:12 Order name: CBC with Automated Diff EDMS 02/25 21:12 Order name: CBC with Automated Diff EDMS 02/25 21:12 Order name: Comprehensive Metabolic Panel EDMS 02/25 21:12 Order name: Comprehensive Metabolic Panel EDMS 02/25 21:12 Order name: Comprehensive Metabolic Panel EDMS 02/25 21:12 Order name: Comprehensive Metabolic Panel EDMS 02/25 21:12 Order name: Comprehensive Metabolic Panel EDMS 02/25 21:12 Order name: Magnesium EDMS 02/25 21:12 Order name: Magnesium EDMS 02/25 21:12 Order name: Magnesium EDMS 02/25 21:12 Order name: Magnesium EDMS 02/25 21:12 Order name: Troponin High Sensitivity EDMS 02/25 21:12 Order name: Troponin High Sensitivity EDMS 02/25 21:12 Order name: Troponin High Sensitivity EDMS 02/25 21:12 Order name: Vancomycin Level Trough EDMS 02/25 21:12 Order name: Vancomycin Level Trough EDMS 02/25 21:12 Order name: Sputum Culture EDMS 02/25 18:23 Order name: Chest Single View XRAY rn 02/25 18:26 Order name: CT Traumagram (Head C Spine CAP W Con); Complete Time: 20:42 rn 02/25 19:14 Order name: XRAY Elbow RIGHT 2 view; Complete Time: 20:31 rn 02/25 21:12 Order name: Echo with Doppler EDNJ 02/25 21:12 Order name: CONS Physician Consult EDNJ 02/25 21:12 Order name: CONS Physician Consult EDNJ 02/25 18:23 Order name: Accucheck; Complete Time: 18:46 rn 02/25 18:23 Order name: Cardiac monitoring; Complete Time: 18:46 rn 02/25 18:23 Order name: EKG - Nurse/Tech; Complete Time: 18:46 rn 02/25 18:23 Order name: IV Saline Lock - Large Bore; Complete Time: 18:46 rn 02/25 18:23 Order name: Labs collected and sent; Complete Time: 18:46 rn 02/25 18:23 Order name: O2 Per Protocol; Complete Time: 18:46 rn 02/25 18:23 Order name: O2 Sat Monitoring; Complete Time: 18:46 rn 02/25 18:23 Order name: Vital Signs; Complete Time: 18:46 rn 02/25 18:54 Order name: Chata Rob; Complete Time: 19:02 rn Administered Medications: 18:46 Drug: NS 0.9% IV 1000 ml IV at 1000 ml once Route: IV; Rate: 1000 ml; Site: left hand; as6 21:56 Follow up: Response: No adverse reaction; IV Status: Completed infusion [facility] 18:46 Drug: D10 in Water IVP 250 ml IVP once Route: IVP; Site: left hand; as6 19:36 Follow up: Response: No adverse reaction [facility] 19:16 Drug: D5-NS IV 1000 ml IV at 125 ml/hr continuous Route: IV; Rate: 125 ml/hr; Site: [facility] right forearm; 21:59 Follow up: Response: No adverse reaction; IV Status: Completed infusion 8 21:59 Follow up: Response: No adverse reaction [facility] 19:42 Drug: Cefepime IVPB 1 grams IVPB at 200 ml/hr once over 30 mins; (mix in NS 100 mL) 8 Route: IVPB; Rate: 200 ml/hr; Infused Over: 30 mins; Site: left antecubital; 21:58 Follow up: Response: No adverse reaction; IV Status: Completed infusion 8 19:43 Drug: vancoMYCIN IVPB 1 grams IVPB once over 2 hrs Route: IVPB; Infused Over: 2 hrs; 8 Site: right forearm; 21:58 Follow up: Response: No adverse reaction; IV Status: Completed infusion 8 20:01 Drug: NS 0.9% IV 1000 ml IV at 1000 ml once Route: IV; Rate: 1000 ml; Site: left hand; 8 21:58 Follow up: Response: No adverse reaction; IV Status: Completed infusion 8 21:05 Drug: Heparin ([place]-Bolus No thrombolytic) - HEParin IVP 60 units/kg IVP once; Max 5000 jh8 units {Co-Signature: km8 (Halima Bustamante RN).} Route: IVP; Site: left hand; 21:57 Follow up: Response: No adverse reaction [facility] 21:06 Drug: Heparin ([place] Drip) 12 units/[place] - ([place] [address] units, D5W IV 500 ml) IV at [facility] calculated rate Per protocol; Max initial rate 1000 units/hr {Co-Signature: km8 (Halima Bustamante RN).} Route: IV; Rate: 1000 units/hr; Site: left hand; 21:57 Follow up: Response: No adverse reaction [facility] 22:32 Follow up: IV Status: Infusion continued upon admission [facility] 21:08 Drug: Famotidine IVP 20 mg IVP once; dilute with 10 mL 0.9% NaCl; give over 2 minutes 8 Route: IVP; Site: right forearm; 21:57 Follow up: Response: No adverse reaction [facility] Disposition Summary: 02/26/24 20:50 Hospitalization Ordered Notes: Hospitalization Status: Inpatient Admission stephanie Provider: Osei Roger cha Location: Intensive Care Unit stephanie Condition: Fair stephanie Problem: new stephanie Symptoms: have improved stephanie Bed/Room Type: [facility] Room Assignment: 4-(02/26/24 21:34) as6 Diagnosis - Altered mental status, unspecified stephanie - Hypothermia, initial encounter stephanie - Severe sepsis without septic shock stephanie - Pneumonia due to other specified bacteria stephanie - Hypotension, unspecified stephanie - Unspecified atrial fibrillation - with rvr stephanie - Unspecified kidney failure stephanie Forms: - Medication Reconciliation Form stephanie - SBAR form stephanie - Leadership Thank You Letter stephanie Signatures: Dispatcher [employer] Stuart Damico MD MD cha Nieto, Roman, MD MD rn Slawson, Ashby, RN RN as6 Halima Bustamante, RN RN km8 Ricardo Mcintosh RN RN 8 Halima Bustamante RN km8 Corrections: (The following items were deleted from the chart) 18:23 18:23 BLOOD CULTURE*+BA.LAB.BRZ ordered. EDMS EDMS 18:23 18:23 CBC+H.LAB.BRZ ordered. EDMS EDMS 18:23 18:23 COMPREHENSIVE METABOLIC PANEL+C.LAB.BRZ ordered. EDMS EDMS 18:23 18:23 LACTATE+C.LAB.BRZ ordered. EDMS EDMS 18:23 18:23 PROTIME (+INR)+COAG.LAB.BRZ ordered. EDMS EDMS 18:23 18:23 PTT, ACTIVATED+COAG.LAB.BRZ ordered. EDMS EDMS 18:23 18:23 Urinalysis+U.LAB.BRZ ordered. EDMS EDMS 18:23 18:23 Chest Single View+RAD.RAD.BRZ ordered. EDMS EDMS 18:23 18:23 Head Brain Wo Cont+CT.RAD.BRZ ordered. EDMS EDMS 20:47 20:47 Influenza Screen (A \T\ B)+BA.LAB.BRZ ordered. EDMS EDMS 20:47 20:47 SARS-COV-2 Antigen Rapid+I.LAB.BRZ ordered. EDMS EDMS 21:34 20:50 stephanie as6
[2024-02-26] MEDS ORDERED: HEPARIN 5000 UNIT/ML 1 ML VIAL ONE (21:04)
[2024-02-26] MEDS ORDERED: HEPARIN/D5W 25,000 UNIT/500 ML BAG IV ONE (21:04)
[2024-02-26] MEDS ORDERED: MORPHINE 2 MG/ML SYR IV PRN (21:05)
[2024-02-26] MEDS ORDERED: ALBUTEROL 2.5 MG/3 ML NEB SOL NEB PRN (21:05)
[2024-02-26] MEDS ORDERED: ONDANSETRON 4 MG/2 ML VIAL IV PRN (21:05)
[2024-02-26] MEDS ORDERED: FAMOTIDINE 20 MG/2 ML VIAL IV ONE (21:08)
--- NOTE | 2024-02-26 21:16 | P.HP ---
Certification for Inpatient Patient admitted to: Inpatient With expected LOS: >2 Midnights Patient will require the following post-hospital care: None Practitioner: I am a practitioner with admitting privileges, knowledge of patient current condition, hospital course, and medical plan of care. Services: Services provided to patient in accordance with Admission requirements found in Title 42 Section 412.3 of the Code of Federal Regulations Patient History Date of Service: 02/26/24 Reason for admission: Altered mental status History of Present Illness: 58-year-old female with past medical history of HTN/DM on long-acting insulin, presented after being brought by EMS today because of an decreased responsiveness. Family stated she was apparently normal earlier this morning but became drowsy during the rest of the day. On arrival of EMS patient was in A-fib with RVR with rates up to 150s. She was also noted to be hypotensive with blood pressure in the 80s systolic. She was transferred to the emergency room. On arrival in the emergency her blood pressure was initially 91/53 with a heart rate of 110. Temperature was low at 86.7] hypothermic, glucose was also low at 50 now on initial glucose check and 65 on BMP. Patient received D5 NS bolus as well as 2 L Saline bolus. Her blood pressure has improved to 99/50 now. Chest x-ray shows bilateral lower lobe infiltrate worrisome for bilateral pneumonitis/pneumonia. Head CT was negative. WBC was unremarkable with normal differentials, BMP shows creatinine of 1.36, previous baseline of 1.6-2.0, glucose as reportedly 65. Lactic acid currently pending. TSH also pending. Patient is being admitted for septic shock with A-fib and RVR At the time of interview, patient is still drowsy, able to respond to some commands but not able to give much history. Allergies No Known Allergies Allergy (Unverified 11/13/22 17:07) Home Medications: Amlodipine [Norvasc*] 10 mg PO DAILY 02/26/24 Esomeprazole Magnesium 20 mg PO DAILY 02/26/24 Ezetimibe 10 mg PO DAILY 02/26/24 Losartan Potassium 100 mg PO DAILY 02/26/24 Pioglitazone HCl 15 mg PO DAILY 02/26/24 - Past Medical/Surgical History Diabetic: Yes -: HTN -: DM II -: CKD with Proteinuria (Dr. Rangel) Past Surgical History: Patient denies surgical history - Social History Smoking Status: Unknown if ever smoked Alcohol use: No CD- Drugs: No Caffeine use: Yes Place of Residence: Home Review of Systems is unable to be obtained (Drowsiness) Physical Examination - Physical Exam General: Delirious HEENT: Atraumatic, Normocephalic, PERRLA Neck: Supple, 2+ carotid pulse no bruit, JVD not distended Respiratory: Clear to auscultation bilaterally, Friction rub Cardiovascular: No edema, Abnormal pulses, Irregular heart rate/rhythm Capillary refill: <2 Seconds Gastrointestinal: Normal bowel sounds, Soft and benign, Non-distended Musculoskeletal: No clubbing, No swelling Integumentary: No rashes, No breakdown Neurological: Cranial nerves 3-12 intact, Other (drowsy ) - Studies Laboratory Data (last 24 hrs) 02/26/24 02/26/24 18:44 18:44 WBC 7.50 Hgb 9.6 L Hct 29.3 L Plt Count 273 Sodium 139 Potassium 4.5 BUN 51 H Creatinine 1.36 H Glucose 65 L Total Bilirubin 0.1 L AST 22 ALT 28 Alkaline Phosphatase 86 Assessment and Plan - Plan Impression Acute septic shockdue to bilateral pneumonia HypothermiaMay be related to symptomatic hypoglycemia Hypertension A-fib with RVR CKD stage IIIa Metabolic encephalopathy History of DM Plan Will admit patient to ICU and Will managed for the following 1 acute septic shockfollow blood culture Start empirical cefepime/Vanco Wean O2 as tolerated Sputum culture if feasible Likely due to pneumonia Will continue to follow Continue aggressive IV fluid 2 symptomatic hypoglycemiainitial glucose of 59, but given associated hypothermia, may be due to hypoglycemia Glucose checks Q6h but no insulin coverage for now D5 LR for now Resume oral intake when more awake Hold long-acting insulin 3 bilateral pneumoniafollow-up with antibiotics as outlined above Follow blood culture A-fib with RVRheart rate improving Continue current therapy If the persistent elevated heart rate may initiate amiodarone Dose digoxin 0.25 mics x 1 now to keep heart rate less than [address] Hedrick 0 set of cardiac enzymes Follow echocardiogram 4 CKDprevious creatinine higher, renal consult in a.m. DVT prophylaxissubcutaneous Lovenox Advance directivefull code for now Addendum Patient more awake and conversant now, she was discussed with her again. She states she was recently started on an oral hypoglycemic medication about a month ago after that she started noticing decreasing glucose level, her PCP reduced her long-acting insulin from 45 units to 35 5 days ago due to intermittent low glucose. She said earlier today she has called walking and on getting home she started feeling dizzy as well as confused she did not get to check her glucose before passing out. She still cannot recall events around passing out but she does complain of pain in her mouth from tongue biting. Above findings seems consistent with suspected aspiration pneumonitis following symptomatic hypoglycemia. Continue above management plan - Advance Directives Does patient have a Living Will: Yes Does patient have a Durable POA for Healthcare: No
[2024-02-26 21:28] LABS: SARS-CoV-2 Antigen CONTROL BLUE LINE VIS/BG OK; SARS-CoV-2 Antigen Rapid Res Negative (Negative)
[2024-02-26 21:52] LABS: Magnesium 2.2 mg/dL (1.6-2.4); Troponin High Sensitivity 52.1 pg/mL (<58.9)
[2024-02-26] MEDS: DIGOXIN 0.25 MG/ML AMP IV SCH (22:00)
[2024-02-26] MEDS ORDERED: VANCOMYCIN 1 GM in NA CHLORIDE 0.9% 250 ML IVPB SCH (22:00)
[2024-02-26 22:36] LABS: Sqamous Epithelial <5 /HPF (None Seen); Urine Bacteria <20 /HPF (<20); Urine Culture Reflex Order NOT NEEDED; Urine Mucus Slight /HPF (None Seen); Urine RBC <5 /HPF (None Seen); Urine WBC <5 /HPF (<5)
[2024-02-26 22:37] LABS: Urine Bilirubin NEGATIVE (Negative); Urine Blood Negative (Negative); Urine Clarity Clear (Clear); Urine Color Light-Yellow (Yellow); Urine Glucose NEGATIVE (Negative); Urine Ketones NEGATIVE (Negative); Urine Microscopic Reflex YN NO UMIC; Urine Nitrite 2+ (Negative); Urine Protein 1+ (Negative); Urine Urobilinogen Normal (Normal); Urine pH 5.5 (5.0-7.0)
[2024-02-26 23:09] VITALS: BMI 32.1
[2024-02-26] MEDS ORDERED: D5LR 1,000 ML IV ONE (23:13)
[2024-02-26] MEDS: D5LR 1,000 ML IV SCH (23:29)
[2024-02-27 05:05] LABS: Absolute Lymphocytes (CBC) 1.3 K/uL (0.7-4.9); Absolute Monocytes 0.6 K/uL (0.1-1.3); Absolute Neutrophil 6.7 K/uL (1.8-8.0); Basophils % 0.5 % (0-1.3); Eosinophils % 0.1 % (0-4.4); Hematocrit 23.7 % (36.0-45.0); Hemoglobin 7.5 g/dL (12.0-15.0); Lymphocytes % 14.6 % (15.3-44.8); MCH 27.7 pg (27.0-35.0); MCHC 31.8 g/dL (32.0-36.0); MCV 87.2 fL (80-100); MPV 9.4 fL (7.6-11.3); Monocytes % 6.6 % (3.3-12.3); Neutrophils % 78.2 % (41.7-73.7); Platelets 253 thou/uL (152-406); RBC Red Blood Cell Count 2.72 M/uL (3.86-4.86); Red Cell Distribution Width 14.7 % (12.1-15.2)
[2024-02-27 05:29] LABS: Albumin 2.7 g/dL (3.4-5.0); Albumin/Globulin Ratio 0.8 (1.1-1.8); Anion Gap 9.2 mEq/L (5.0-15.0); Bilirubin Total 0.1 mg/dL (0.2-1.0); Globulin 3.3 g/dL (2.3-3.5); Potassium 5.2 mEq/L (3.5-5.1)
[2024-02-27] MEDS ORDERED: PNEUMOCOCCAL VACCINE 0.5 ML IMVAC ONE (09:00)
[2024-02-27] MEDS: SODIUM ZIRCONIUM CYCLOSILICATE 10 GM/PKT PO ONE (09:55)
[2024-02-27] MEDS: ENOXAPARIN 40 MG/0.4 ML SQ SCH (09:55)
--- NOTE | 2024-02-27 10:53 | P.PN ---
Subjective Date of Service: 02/27/24 Chief Complaint: Altered mental status Pt is resting comfortably inbed. She is feeling better. She had hypoglycemia at home after her PCP started her on long-acting insulin. It was decreased from 45u to 35units daily. Pt was doing echo when I saw her. No other complaints. Review of Systems General: Unremarkable Eyes: Unremarkable ENT: Unremarkable Respiratory: Unremarkable Cardiovascular: Unremarkable Gastrointestinal: Unremarkable Genitourinary: Unremarkable Musculoskeletal: Unremarkable Integumentary: Unremarkable Neurological: Unremarkable Lymphatics: Unremarkable Physical Examination - Vital Signs Temperature: 98.6 F Blood Pressure: 132/59 Pulse: 81 Respirations: 16 Pulse Ox (%): 97 - Physical Exam General: Alert, In no apparent distress, Oriented x3 HEENT: Atraumatic, Normocephalic, PERRLA Neck: Supple, 2+ carotid pulse no bruit, JVD not distended Respiratory: Clear to auscultation bilaterally, Normal air movement Cardiovascular: No edema, Normal pulses, Regular rate/rhythm, Normal S1 S2 Capillary refill: <2 Seconds Gastrointestinal: Normal bowel sounds, Soft and benign, Non-distended Musculoskeletal: No clubbing, No swelling Integumentary: No rashes, No breakdown Neurological: Normal speech, Normal strength at 5/5 x4 extr, Normal tone Lymphatics: No axilla or inguinal lymphadenopathy - Studies Laboratory Data (last 24 hrs) 02/26/24 02/26/24 18:44 18:44 WBC 7.50 Hgb 9.6 L Hct 29.3 L Plt Count 273 Sodium 139 Potassium 4.5 BUN 51 H Creatinine 1.36 H Glucose 65 L Total Bilirubin 0.1 L AST 22 ALT 28 Alkaline Phosphatase 86 Microbiology Data (last 24 hrs): 02/26/24 20:55 Nasopharnyx Influenza Type A Antigen Screen - Final 02/26/24 20:55 Nasopharnyx Influenza Type B Antigen Screen - Final Assessment And Plan - Plan Septic shock 2/2 bilateral pneumonia: Will continue IVF, iv vanc and cefepime. Will f/u blood cx. Hypothermia: likely due to symptomatic hypoglycemia. Will continue zay hugger. Hypertension: Will continue home med A-fib with RVR: Will continue lovenox, digoxin and telemetry. HR is controlled. Consulted Cardiology. Will f/u Echo. CKD stage IIIa: Cr is 1.21. Will continue IVF, avoid nephrotoxins and monitor renal function. Metabolic encephalopathy: Due to hypoglycemia. resolved. Will monitor glucose level. CT head is unremarkable. Anemia: Hgb is 7.5. Likely due to hemodilution. Will monitor H/H. Hyperkalemia: K is 5.2. Will monitor. History of DM: Continue accuchek, SSI and ADA diet. Will start low dose of lantus DVT ppx: Lovenox Dispo: Pending hospital course
--- NOTE | 2024-02-27 14:14 | ECHO ---
HEIGHT: 5 ft 1 in WEIGHT: 170 lb 0 oz DATE OF STUDY: 02/27/[address]: Osei Roger MD 2-DIMENSIONAL: YES M.MODE: YES DOPPLER: YES COLOR FLOW: YES TDS: NO PORTABLE: YES DEFINITY: NO BUBBLE STUDY: NO DIAGNOSIS: CVA, RULE OUT VEGETATIONS CARDIAC HISTORY: CATHERIZATION: NO SURGERY: NO PROSTHETIC VALVE: NO PACEMAKER: NO MEASUREMENTS (cm) DIASTOLIC (NORMALS) SYSTOLIC (NORMALS) IVSd 1.2 (0.6-1.2) LA Diam 4.1 (1.9-4.0) LVEF 47% LVIDd 3.3 (3.5-5.7) LVIDs 2.5 (2.0-3.5) %FS 23% LVPWd 1.3 (0.6-1.2) Ao Diam 2.7 (2.0-3.7) 2 DIMENSIONAL ASSESSMENT: RIGHT ATRIUM: NORMAL LEFT ATRIUM: MILDLY DILATED RIGHT VENTRICLE: NORMAL LEFT VENTRICLE: NORMAL TRICUSPID VALVE: NORMAL MITRAL VALVE: NORMAL PULMONIC VALVE: NORMAL AORTIC VALVE: NORMAL PERICARDIAL EFFUSION: NONE AORTIC ROOT: NORMAL LEFT VENTRICULAR WALL MOTION: NORMAL. DOPPLER/COLOR FLOW: IMPAIRED RELAXATION GRADE I DIASTOLIC DYSFUNCTION. COMMENTS: 1. NORMAL LEFT VENTRICULAR SYSTOLIC FUNCTION. LEFT VENTRICULAR EJECTION FRACTION 55-60% WITH NORMAL WALL MOTION. 2. IMPAIRED RELAXATION GRADE I DIASTOLIC DYSFUNCTION. TECHNOLOGIST: JANY CORDOVA
[2024-02-27 14:35] LABS: Absolute Basophils 0.2 K/uL (0-0.5); Absolute Eosinophils 0.1 K/uL (0-0.5); Absolute Lymphocytes (CBC) 2.1 K/uL (0.7-4.9); Absolute Monocytes 0.5 K/uL (0.1-1.3); Absolute Neutrophil 5.2 K/uL (1.8-8.0); Basophils % 2.7 % (0-1.3); Eosinophils % 0.9 % (0-4.4); Hematocrit 25.3 % (36.0-45.0); Hemoglobin 8.3 g/dL (12.0-15.0); Lymphocytes % 26.2 % (15.3-44.8); MCH 28.4 pg (27.0-35.0); MCHC 32.7 g/dL (32.0-36.0); MCV 87.1 fL (80-100); MPV 9.5 fL (7.6-11.3); Neutrophils % 64.2 % (41.7-73.7); Platelets 248 thou/uL (152-406); Red Cell Distribution Width 14.9 % (12.1-15.2)
[2024-02-27 14:48] LABS: Anion Gap 9.5 mEq/L (5.0-15.0); Potassium 4.5 mEq/L (3.5-5.1)
--- NOTE | 2024-02-27 14:53 | CON ---
Date of Consultation: 02/27/2024 Consulting Physician: Dr. Roger. Reason For Consultation: Elevated BUN and creatinine, fluid management. History Of Present Illness: This is a 58-year-old female with significant past medical history of di abetes since 1979, complicated with retinopathy and neuropathy, hypertension, hyperlipidemia, the pat ient came to the hospital with hypoglycemia, atrial fibrillation with RVR, found to have pneumonia, l ow blood pressure. The patient received fluid resuscitation. Upon arrival to the hospital, creatini ne 1.3 with low GFR. Reviewing the record for the patient, the patient usually baseline creatinine a round 1.6 with GFR around 43 as of October 2023. The patient has marginal hyperkalemia. The patien t denied taking any nonsteroidal. No recent change in her medication except adding oral diabetes med ication. The patient after hydration, creatinine improved from 1.3 to 1.2, GFR up to 52 from 45. Th e patient did not receive any contrast. Reviewing the record for the patient at home, the patient swenson s been on losartan. Past Medical History: 1.Diabetes since 1979, complicated with neuropathy and retinopathy. 2.Hypertension. 3.Hyperlipidemia. 4.Atrial fibrillation. 5.Chronic kidney disease stage 3, baseline creatinine 1.3 to 1.6, GFR 40 to 50. Home Medications: Include losartan, esomeprazole, amlodipine, and Jardiance. Past Surgical History: Negative. Social History: Denied smoking. Denied drinking. Denied drugs abuse. Review of Systems: Head and Neck: No red eye. No ear pain. Has decreased vision on the left eye. Tugboat Engineer: No vaginal discharge. Respiratory: No shortness of breath. Cardiovascular: No chest pain. Endocrine: No polydipsia. Has hypoglycemia. Musculoskeletal: Generalized fatigue. Neuro: Has loss of consciousness. Physical Examination: Vital Signs: When I saw the patient, the patient sitting in bed, blood pressure 132/59, pulse of 81, afebrile. Chest: Clear to auscultation. Heart: S1, S2 regular. Abdomen: Soft, nontender. Extremities: No edema. Neurologic: Alert. No focality. Laboratory Data: Upon arrival to the hospital, creatinine 1.3, potassium 4.5. Current lab data; sod ium 138, potassium 5.2, bicarb 22, BUN 42, creatinine 1.2, GFR 52, calcium 7.5, albumin 2.7. Troponi n 74. TSH is 0.007. Urinalysis, specific gravity 1.030, negative for infection, +1 protein. Current Medications: The patient is on include Lokelma, vancomycin, cefepime, Lovenox, Tylenol. Assessment And Plan: 1.Acute kidney injury on chronic kidney disease secondary to prerenal, recovered, back to baseline. Obstructive uropathy has been ruled out with the CT. 2.Chronic kidney disease stage III, status post acute kidney injury secondary to prerenal, dehydrati on, recovered, back to baseline. We will monitor. Okay from the renal standpoint for discontinuing IV fluid. 3.Hyperkalemia. Keep holding losartan for the time being. 4.Atrial fibrillation with RVR as by primary. 5.With the presence of hyperkalemia, I am going to send for TSH and repeat CK and we will follow up and I am going to send for quantification of the proteinuria. 6.Pneumonia, stable. Continue current antibiotic. Follow up vancomycin trough. 7.Diabetes with hypoglycemia as by primary. Time spent examining the patient [id number], reviewing data, lab and radiology, placing order, disc ussing the case with the patient, discussing the case with the cdl team truck driver including hospitalist and ICU nursing more than 75 minutes. JESUS Voice ID: [id number] Report ID: [id number]
[2024-02-27 14:57] LABS: UR PROTEIN 21.9 mg/dL (<11.9); Urine Protein/Creatinine Ratio 1.1 ratio (<0.15)
[2024-02-27 15:44] LABS: PT Prothrombin Time 9.5 SECONDS (9.5-12.5); Protime INR 0.8
[2024-02-27] MEDS ORDERED: ALBUTEROL 2.5 MG/3 ML NEB SOL NEB PRN (16:58)
--- NOTE | 2024-02-27 17:50 | RAD REPORT ---
EXAM DESCRIPTION: RAD - Knee Right 2 View - 02/27/2024 1:42 pm CLINICAL HISTORY: s/p fall, pain to right knee COMPARISON: No comparisons TECHNIQUE: Right knee, 3 views. FINDINGS: No fracture, dislocation or periosteal reaction.No joint effusion seen. No joint space fermin rowing. No soft tissue abnormality. Linear sclerosis along the included diaphyses of the femur and tibia, may relate to a remote event of growth interruption. Vascular calcifications. IMPRESSION: No acute osseous abnormality. Findings as above.
[2024-02-27] MEDS: VANCOMYCIN 1.25 GM in NA CHLORIDE 0.9% 250 ML IVPB SCH (17:51)
[2024-02-27] MEDS ORDERED: ACETAMINOPHEN 500 MG TAB ONE (18:17)
[2024-02-27] MEDS: ACETAMINOPHEN 500 MG TAB PO PRN (18:18)
[2024-02-27] MEDS ORDERED: VANCOMYCIN 1.25 GM in NA CHLORIDE 0.9% 250 ML IVPB SCH (19:00)
--- NOTE | 2024-02-27 19:07 | P.CNS ---
Date of Consult: 02/27/24 Chief Complaint: Altered mental status History of Present Illness: Patient with PMH of DM, HTN, Presented with AMS secondary to low BG, patient was also found to be in AF per report, no EKG on chart, denies having any history of palpitations, no chest pain, no MATUTE. Allergies No Known Allergies Allergy (Unverified 11/13/22 17:07) Home Medications: Amlodipine [Norvasc*] 10 mg PO DAILY 02/26/24 Esomeprazole Magnesium 20 mg PO DAILY 02/26/24 Ezetimibe 10 mg PO DAILY 02/26/24 Insulin Aspart [Novolog Flexpen] 30 units SQ BID 02/26/24 Insulin Detemir [Levemir Flexpen] 12 units SQ BID 02/26/24 Losartan Potassium 100 mg PO DAILY 02/26/24 Pioglitazone HCl 15 mg PO DAILY 02/26/24 - Past Medical/Surgical History Diabetic: Yes -: HTN -: DM II -: CKD with Proteinuria (Dr. Rangel) -: Hysterectomy - Social History Smoking Status: Current every day smoker Alcohol use: No CD- Drugs: No Caffeine use: Yes Place of Residence: Home Review of Systems 10-point ROS is otherwise unremarkable Physical Examination Temp Pulse Resp BP Pulse Ox 98.9 F 99 H 16 151/69 H 98 02/27/24 16:51 02/27/24 18:00 02/27/24 18:00 02/27/24 18:00 02/27/24 18:00 General: Alert, Oriented x3 HEENT: Atraumatic Neck: Supple Respiratory: Clear to auscultation bilaterally Cardiovascular: No edema, Regular rate/rhythm, Normal S1 S2 Gastrointestinal: Normal bowel sounds Laboratory Data (last 24 hrs) 02/26/24 02/26/24 18:44 18:44 PT 9.5 INR 0.80 APTT 34.0 Sodium 139 Potassium 4.5 BUN 51 H Creatinine 1.36 H Glucose 65 L Total Bilirubin 0.1 L AST 22 ALT 28 Alkaline Phosphatase 86 - Problems (1) Atrial fibrillation Current Visit: Yes Status: Acute Plan: unable to identify rhythm strip, transient, resolved spontaneously which can be secondary to acute illness. continue to monitor on Telemetry and call back if AF noticed. if BP is high then start patient on Lopressor 25 mg po BID start patient on ASA 81 mg daily. (2) Hypertension Current Visit: Yes Status: Acute Plan: Lopressor 25 mg po BID. Echo is normal Cardiology will sign off, please call with any questions.
[2024-02-27] MEDS ORDERED: NA CHLORIDE 0.9% 100 ML ONE (19:28)
[2024-02-27] MEDS ORDERED: CEFEPIME 1 GM/VIAL ONE (19:28)
[2024-02-27] MEDS: CEFEPIME 1 GM in NA CHLORIDE 0.9% 100 ML IV SCH (19:29)
[2024-02-27 20:12] VITALS: O2SAT 95
[2024-02-27] MEDS ORDERED: D50W 25 GM/50 ML SYRINGE IV PRN (21:09)
[2024-02-27] MEDS ORDERED: GLUCAGON 1 MG/VIAL IM PRN (21:09)
[2024-02-27] MEDS ORDERED: D10W 125 ML IV PRN (21:20)
[2024-02-28 06:57] LABS: Eosinophils % 3.6 % (0-4.4); Hematocrit 26.2 % (36.0-45.0); Hemoglobin 8.7 g/dL (12.0-15.0); Lymphocytes % 40.1 % (15.3-44.8); MCH 28.8 pg (27.0-35.0); MCV 87.1 fL (80-100); MPV 9.2 fL (7.6-11.3); Monocytes % 9.5 % (3.3-12.3); Neutrophils % 45.5 % (41.7-73.7); Platelets 267 thou/uL (152-406); RBC Red Blood Cell Count 3.01 M/uL (3.86-4.86); Red Cell Distribution Width 15.1 % (12.1-15.2)
[2024-02-28 06:58] LABS: Absolute Basophils 0.1 K/uL (0-0.5); Absolute Eosinophils 0.2 K/uL (0-0.5); Absolute Lymphocytes (CBC) 2.3 K/uL (0.7-4.9); Absolute Monocytes 0.5 K/uL (0.1-1.3); Absolute Neutrophil 2.6 K/uL (1.8-8.0); Basophils % 1.3 % (0-1.3)
[2024-02-28 07:21] LABS: Albumin 3.2 g/dL (3.4-5.0); Albumin/Globulin Ratio 0.8 (1.1-1.8); Anion Gap 7.1 mEq/L (5.0-15.0); Bilirubin Total 0.2 mg/dL (0.2-1.0); Globulin 3.9 g/dL (2.3-3.5); Phosphorus 2.6 mg/dL (2.5-4.9); Potassium 4.1 mEq/L (3.5-5.1); Protein, Total 7.1 g/dL (6.4-8.2); Thyroid Stimulating Hormone 2.3 uIU/mL (0.358-3.740); Uric Acid 4.4 mg/dL (2.6-6.0)
[2024-02-28] MEDS: INSULIN LISPRO 100 UNIT/ML SQ SCH (07:30)
[2024-02-28] MEDS: ASPIRIN EC 81 MG TAB PO SCH (09:22)
--- NOTE | 2024-02-28 16:02 | P.DS ---
Admission Date: 02/26/24 Discharge Date: 02/28/24 Disposition: ROUTINE DISCHARGE Discharge Condition: GOOD Reason for Admission: Altered mental status Brief History of Present Illness: 58-year-old female with past medical history of HTN/DM on long-acting insulin, presented after being brought by EMS today because of an decreased responsiveness. Family stated she was apparently normal earlier this morning but became drowsy during the rest of the day. On arrival of EMS patient was in A-fib with RVR with rates up to 150s. She was also noted to be hypotensive with blood pressure in the 80s systolic. She was transferred to the emergency room. On arrival in the emergency her blood pressure was initially 91/53 with a heart rate of 110. Temperature was low at 86.7] hypothermic, glucose was also low at 50 now on initial glucose check and 65 on BMP. Patient received D5 NS bolus as well as 2 L Saline bolus. Her blood pressure has improved to 99/50 now. Chest x-ray shows bilateral lower lobe infiltrate worrisome for bilateral pneumonitis/pneumonia. Head CT was negative. WBC was unremarkable with normal differentials, BMP shows creatinine of 1.36, previous baseline of 1.6-2.0, glucose as reportedly 65. Lactic acid currently pending. TSH also pending. Patient is being admitted for septic shock with A-fib and RVR At the time of interview, patient is still drowsy, able to respond to some commands but not able to give much history. Hospital Course: Pt is a 58yo female with past medical history of HTN and DM who presented with decreased responsiveness. Pt complained of dizziness and her family brought her to the Er. On admission, EKG shwed A. finb with RVR. On admission her vital signs were blood pressure 91/53 with a heart rate of 110. Temperature was low at 86.7 (hypothermic). Lab studies showed hypoglycemia (low at 50) and cr 1.36. We gave D50 syringe and also D5NS bolus in the ER. Her blood pressure has improved to 99/50 now. Chest x-ray showed bilateral lower lobe infiltrate worrisome for bilateral pneumonitis/pneumonia. CT head was unremarkable. Patient was admitted for septic shock 2/2 bilateral pneumonia and A-fib and RVR. We continued iv vanc and cefepime and followed up blood cx. there was no growth on the blood cx and we discharged pt with levaquin. We continued rate control med, telemetry and aspirin for the A. fib. The hypothermia resolved with zay hugger. The acute encephalopathy due to hypoglycemia resolved. We advised to to stop taking insulin and only take pioglitazone 15mg po daily. Her A1c was 6.3. We monitored H/H and continued home med for other chronic medical problems. Pt was in NAD prior to discharge. Vital Signs/Physical Exam: Temp Pulse Resp BP Pulse Ox 97.8 F 94 H 16 170/87 H 96 02/28/24 12:00 02/28/24 12:00 02/28/24 12:00 02/28/24 12:00 02/28/24 12:00 Laboratory Data at Discharge: WBC 5.70 thou/uL (4.3-10.9) 02/28/24 06:33 Hgb 8.7 g/dL (12.0-15.0) L 02/28/24 06:33 Hct 26.2 % (36.0-45.0) L 02/28/24 06:33 Plt Count 267 thou/uL (152-406) 02/28/24 06:33 PT 9.5 SECONDS (9.5-12.5) 02/26/24 18:44 INR 0.80 02/26/24 18:44 APTT 34.0 SECONDS (24.3-36.9) 02/26/24 18:44 Sodium 139 mEq/L (136-145) 02/28/24 06:33 Potassium 4.1 mEq/L (3.5-5.1) 02/28/24 06:33 BUN 26 mg/dL (7-18) H 02/28/24 06:33 Creatinine 1.23 mg/dL (0.55-1.02) H 02/28/24 06:33 Glucose 110 mg/dL (74-106) H 02/28/24 06:33 Uric Acid 4.4 mg/dL (2.6-6.0) 02/28/24 06:33 Phosphorus 2.6 mg/dL (2.5-4.9) 02/28/24 06:33 Magnesium 2.2 mg/dL (1.6-2.4) 02/28/24 06:33 Total Bilirubin 0.2 mg/dL (0.2-1.0) 02/28/24 06:33 AST 19 U/L (15-37) 02/28/24 06:33 ALT 24 U/L (13-56) 02/28/24 06:33 Alkaline Phosphatase 75 U/L (45-117) 02/28/24 06:33 Home Medications: Amlodipine [Norvasc*] 10 mg PO DAILY 02/26/24 Esomeprazole Magnesium 20 mg PO DAILY 02/26/24 Ezetimibe 10 mg PO DAILY 02/26/24 Pioglitazone HCl 15 mg PO DAILY 02/26/24 Aspirin [Aspirin EC 81 MG] 81 mg PO DAILY 90 Days #90 tab 02/28/24 Metoprolol Tartrate 25 mg PO BID 30 Days #60 tab 02/28/24 levoFLOXacin [Levaquin] 500 mg PO DAILY 7 Days #7 tab 02/28/24 New Medications: Aspirin [Aspirin EC 81 MG] 81 mg PO DAILY 90 Days #90 tab levoFLOXacin [Levaquin] 500 mg PO DAILY 7 Days #7 tab Metoprolol Tartrate 25 mg PO BID 30 Days #60 tab Physician Discharge Instructions: Continue ad russell activity. take Levaquin for pneumonie. Take Metoprolol and aspirin for A. fib. Take pioglitazone for diabetes. Follow up with PCP within 1 week to monitor blood sugar. Diet: ADA Activity: Ad russell Followup: Tigist Damon MD [Primary Care Provider] -
--- NOTE | 2024-02-28 16:48 | EKG ---
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
[2024-02-28 18:34] VITALS: BP 159/70; TEMP 98.8
--- NOTE | 2024-02-28 20:01 | PN ---
Date of Progress Note: 02/28/2024 Subjective: Seen by bedside, doing well. No further episodes of tachycardia. Review of Systems: No chest pain, shortness of breath, orthopnea, or cough. No dysuria, polyuria, or urinary urgency. All other systems reviewed, they are negative. Physical Examination: Vital Signs: Reviewed. Head and Neck: Pupils are equal, reactive to light. Intact eye movements. No JVD. No cervical lym phadenopathy. Neck is supple. Thyroid is not enlarged. Lungs: Clear to auscultation bilaterally. No rhonchi, wheezing, or crackles. No accessory muscle u se. Heart: Regular rate and rhythm. No extra sounds. Abdomen: Soft, nontender. Bowel sounds positive. No organomegaly. No masses or hernia. No rigidi ty or rebound. Extremities: No edema, clubbing, cyanosis. Intact pulses. Skin: No rash or nodule. Neuro: Alert, awake, oriented x3. No acute focal deficits appreciated. Investigations: BUN is 26, creatinine 1.23. Assessment/recommendation: 1.Atrial fibrillation with rapid ventricular response, converted to sinus rhythm. She is on carvedi lol 6.25, heart rate still high. I increased to 12.5 mg twice a day and her CHADVASC score is 3. I recommend to start Eliquis 5 mg twice a day and to follow up with me in the office in 2 to [address] discharge. Again, increase carvedilol to 12.5 mg and start Eliquis 5 mg twice a day. Follow up a s an outpatient. 2.Hypertension. Blood pressure is uncontrolled. Increase carvedilol as above. 3.Diabetes. Sugars are better. Continue current management. SR/MODL Voice ID: [id number] Report ID: [id number]
--- NOTE | 2024-02-28 20:04 | PN ---
Date of Progress Note: 02/28/2024 Subjective: The patient was admitted to the hospital with pneumonia, hypoglycemia, hyperkalemia. Th e patient treated, recovered. Kidney function has been improved. Physical Examination: Vital Signs: Blood pressure 170/86, pulse of 94, afebrile. Chest: Clear to auscultation. Heart: S1, S2. Regular. Abdomen: Soft, nontender. Extremities: No edema. Neurologic: Alert. No focality. Laboratory Data: Hemoglobin 8.7. Sodium 139, potassium 4.1, bicarb 28, BUN 26, creatinine 1.2, GFR of 51, calcium 8.9. BNP 1132, albumin 3.2, PTH 63. PC ratio 1.1. 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 Tato k to base line. We will monitor. 2.Hypertension, controlled, not optimal. I am going to go ahead and start the patient on carvedilol and we will follow up. We will start the patient on ARB. 3.Hyperkalemia, status post treatment, resolved. 4.Hypokalemia by primary. 5.Atrial fibrillation with RVR. We will follow up with Cardiology. JESUS Voice ID: [id number] Report ID: [id number]
[2024-02-28] MEDS ORDERED: carvediloL 6.25 MG TAB PO SCH (21:00)
[2024-02-29] MEDS ORDERED: LOSARTAN POTASSIUM 50 MG TABLET PO SCH (09:00)
== END 2024-02-28 17:30 | disposition home or self-care (01) | DRG 871 ==
LOC: ER 18:15 → ERHOLD 21:05 → 3RD-ICU 21:35 → 4TH 02-27 21:23
PROVIDERS: ADMIT Internal Medicine; ATTEND Hospitalist
DX: A41.9 Sepsis, unspecified organism (principal); G93.41 Metabolic encephalopathy; J18.9 Pneumonia, unspecified organism; R65.21 Severe sepsis with septic shock; N17.9 Acute kidney failure, unspecified; E87.1 Hypo-osmolality and hyponatremia; E87.6 Hypokalemia; I48.91 Unspecified atrial fibrillation; I12.9 Hypertensive chronic kidney disease with stage 1 through stage 4 chronic kidney disease, or unspecified chronic kidney disease; N18.31 Chronic kidney disease, stage 3a; E11.22 Type 2 diabetes mellitus with diabetic chronic kidney disease; E11.649 Type 2 diabetes mellitus with hypoglycemia without coma; D63.1 Anemia in chronic kidney disease; E78.5 Hyperlipidemia, unspecified; E87.5 Hyperkalemia; F17.200 Nicotine dependence, unspecified, uncomplicated; R68.0 Hypothermia, not associated with low environmental temperature; Z79.4 Long term (current) use of insulin; Z79.82 Long term (current) use of aspirin; Z11.52 Encounter for screening for COVID-19; Z79.899 Other long term (current) drug therapy; Z90.710 Acquired absence of both cervix and uterus
CPT/HCPCS: 36415; 70450; 71045; 71260; 72125; 74177; 80048; 80053; 80069; 80202; 81003; 82550; 82570; 82947; 83036; 83605; 83735; 83880; 83970; 84156; 84443; 84484; 84550; 85025; 85610; 85730; 87040; 87804; 87811; 93005; 93306; 97161; 99285; J0692; J1644; J1650; J7030; J7042; J7050; J7121; Q9967

== ENCOUNTER 2024-03-17 18:38 | Emergency (ER) | payer OTHER ==
--- OUTSIDE RECORDS SUMMARY | 2024-03-17 18:46 | XMS REPORT | Continuity of Care Document ---
Author Name Unknown Address [address] [facility] José Miguel. [address] [place] [address] [facility]connect Address [address] [facility] José Miguel. [address] [place] [address] Care Team Providers Care Coal Picker Name Role Phone Tigist Damon Primary Care Physician [phone] Tigist Damon Attending Clinician Unavail able JASSON STARK Attending Clinician Unavailab IRENE Pina Attending Clinician Unavailable Irene Waggoner DO Attending Clinician [phone] Doctor Unassigned, Odem Attending Clinician U navailHEATHER Benitez Attending Clinician Unavailable Heather Houston MD Attending Clinician [phone] Felipa Monson LVN Attending Clinician [phone] GUZMAN SUTTON Attending Clinician Unavailable Serenity Doe NP Attending Clinician [phone] Sandeep Shepherd MD Attending Clinician [phone] Guzman Sutton MD Attending Clinician [phone] Wiliam Gutierres APN Attending Clinician + [phone] FLYNN ZARATE Attending Clinician Unavailable GUZMAN SUTTON Admitting Clinician Unavailable Guzman Sutton MD Admitting Clinician [phone] Payers Payer Name Policy Type Policy Number Effective Date Expirati on Date Source AET[employer] MP [facility] 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[employer] 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 9 [id number] 2023 00:00:00 [employer] [facility] H[employer] 53 [id number] 2023 00:00:00 [facility] [employer] 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 [id number] 2023 00:00:00 Problems Condition Name Condition Details Condition Category Status Onset Date Resolution Date Last Treatment Date Treating Clinician Comments Source Infected pilonidal cyst Infected pilonidal cyst Disease Active 2020-11 00:00: 00 [facility] ZINA (acute kidney injury) ZINA (acute kidney injury) Disease Active 2020-11 00:00: 00 [facility] Hypokalemi a Hypokalemi a Disease Active 05-17 00:00: 00 [facility] Abscess Abscess Disease Active 05-11 00:00: 00 [facility] [id number] 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 Problem [facility] [id number] Mixed hyperlipid emia Problem [facility] [id number] Stage 3a chronic kidney disease (CKD) Problem [facility] [id number] Blindness of both eyes Problem [facility] [id number] Gastroesop hageal reflux disease without esophagiti s Problem [facility] [id number] 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 Problem [facility] [id number] Other obesity due to excess calories Problem [facility] 944929188 BMI 31.0-31.9, adult Problem [facility] [id number] Hypoglycem ia Problem [facility] [id number] Altered mental status, unspecifie d altered mental status type Problem [facility] [id number] Paroxysmal a-fib Problem [facility] [id number] Overweight Problem Com mon [facility] [id number] Essential hypertensi on Problem [facility] GERD (gastroeso phageal reflux disease) GERD (gastroeso phageal reflux disease) Disease Active [facility] Blurred vision Blurred vision Disease Active [facility] Allergies, Adverse Reactions, Alerts Allergy Name Allergy Type Status Severity Reaction(s) Onset Date Inactive Date Treating Clinician Comments Source atorvast atin atorvast atin Active anaphylaxis [facility] NO KNOWN ALLERGIE S Drug Class Active [facility] Social History Social Habit Start Date Stop Date Quantity Comments Source Sexual orientation [facility] History SDOH Alcohol Frequency [facility] History SDOH Alcohol Std Drinks [facility] History SDOH Alcohol Binge [facility] Exposure to SARS-CoV-2 (event) Not sure [facility] History of Tobacco Use [facility] Sex Assigned At [facility] Alcohol intake 2022-05-16 00:00:00 2022-05-16 00:00:00 0 /d [facility] History of Social function 2021-11-14 00:00:00 2021-11-14 00:00:00 [facility] Cigarettes smoked current (pack per day) - Reported 2016-05-29 00:00:00 2016-05-29 00:00:00 [facility] Alcohol Comment 2016-05-29 00:00:00 2016-05-29 00:00:00 occasionally [facility] Tobacco use and exposure 2016-05-29 00:00:00 2016-05-29 00:00:00 Former smokeless tobacco user [facility] Smoking Status Start Date Stop Date Source Never Smoker [facility] Ex-smoker 2016-05-29 00:00:00 2016-05-29 00:00:00 [facility] Medications Ordered Medication Name Filled Medication Name Start Date Stop Date Current Medication? Ordering Clinician Indication Dosage Frequency Signature (SIG) Comments Components Source Trulicity 0.75 MG/0.5ML Trulicity 0.75 MG/0.5ML 03-06 00:00: 00 No Trulicity 0.75 MG/0.5ML Insulin Detemir 100 UNIT/ML Insulin Detemir 100 UNIT/ML 0 3-22 00:00: 00 No BID Insulin Detemir 100 UNIT/ML Ozempic (0.25 or 0.5 MG/DOSE) 2 MG/3ML Ozempic (0.25 or 0.5 MG/DOSE) 2 MG/3ML 2023-0 3-22 00:00: 00 No Ozempic (0.25 or 0.5 MG/DOSE) 2 MG/3ML guaiFENesin 200 MG/5ML guaiFENesin 200 MG/5ML 2023-0 3-22 00:00: 00 No 5{ml_as _needed } 6xD guaiFENesi n 200 MG/5ML Ozempic (0.25 or 0.5 MG/DOSE) 2 MG/3ML Ozempic (0.25 or 0.5 MG/DOSE) 2 MG/3ML 2023-0 22 00:00: 00 No Ozempic (0.25 or 0.5 MG/DOSE) 2 MG/3ML Pen Sturgeon 32G X 6 MM Pen Sturgeon 32G X 6 MM 2023-0 3-21 00:00: 00 No Pen Sturgeon 32G X 6 MM Pen Sturgeon 32G X 6 MM Pen Sturgeon 32G X 6 MM 2023-0 3-21 00:00: 00 No Pen Sturgeon 32G X 6 MM Pen Sturgeon 32G X 6 MM Pen Sturgeon 32G X 6 MM 0 3-21 00:00: 00 No Pen Sturgeon 32G X 6 MM Fish Oil Fish Oil 2023-0 3-08 00:00: 00 No 5{ml_as _needed } 6xD Fish Oil Tamiflu 75 MG Tamiflu 75 MG 2023-0 3-08 00:00: 00 No 1{capsu le} BID Tamiflu 75 MG Nirmatrelvi r&Ritonavir 150/100 10 x 150 MG & 10 x 100MG Nirmatrelvi r&Ritonavir 150/100 10 x 150 MG & 10 x 100MG 2023-0 3-08 00:00: 00 No BID Nirmatrelv ir&Ritonav ir 150/100 10 x 150 MG & 10 x 100MG Tamiflu 75 MG Tamiflu 75 MG 2023-0 3-08 00:00: 00 No 1{capsu le} BID [...] 15 MG Pioglitazon e HCl 15 MG 12-27 00:00: 00 No 1{table t} QD Pioglitazo ne HCl 15 MG Zetia 10 MG Zetia 10 MG 12-27 00:00: 00 No 1{table t} QD Zetia [...] DAYS 2021-11 00:00: 00 No Dose Unknown 2021-0 9-16 00:00: 00 No Dose Unknown 2021-0 9-16 00:00: 00 No Dose Unknown 2021-0 9-16 00:00: 00 No Dose Unknown 0 8-16 00:00: 00 No Dose Unknown 2021-0 8-16 00:00: 00 No Dose Unknown 0 8-16 00:00: 00 No Dose Unknown 0 8-16 00:00: 00 No amlodipine 10 mg tablet 2021-0 7-15 00:00: 00 No 1mg amlodipine 10 mg tablet 2021-0 7-15 00:00: 00 No 1mg Dose Unknown 0 7-15 00:00: 00 No amlodipine 10 mg tablet 2022-0 7-15 00:00: 00 No 1mg losartan 100 [...] 2022-0 2-21 00:00: 00 No Dose Unknown 2021-0 2-21 00:00: 00 No Levemir U-100 Insulin 100 unit/mL subcutaneou s solution 2021-0 2-19 00:00: 00 No unit/mL hydrochloro thiazide 12.5 mg tablet 2021-0 2-19 00:00: 00 No 1mg amlodipine 10 mg tablet 2021-0 2-19 00:00: 00 No 1mg Dose Unknown 0 2-19 00:00: 00 No Levemir U-100 Insulin 100 unit/mL subcutaneou s solution 2021-0 2-19 00:00: 00 No unit/mL hydrochloro thiazide [...] 2021-0 2-19 00:00: 00 No Dose Unknown 0 2-19 00:00: 00 No hydrochloro thiazide 12.5 mg tablet 2021-0 2-19 00:00: 00 No 1mg amlodipine 10 mg tablet 0 2-19 00:00: 00 No 1mg Dose Unknown 0 2-19 00:00: 00 No Levemir U-100 Insulin 100 unit/mL subcutaneou s solution 0 1-28 00:00: 00 No unit/mL Levemir U-100 Insulin 100 unit/mL subcutaneou s solution 0 - 00:00: 00 No unit/mL Levemir U-100 Insulin 100 unit/mL subcutaneou s solution 0 - 00:00: 00 No unit/mL Levemir U-100 Insulin 100 unit/mL subcutaneou s solution 12-02 00:00: 00 No unit/mL Dose Unknown 0 11-30 00:00: 00 No Dose Unknown 0 11-30 00:00: 00 No Dose Unknown 0 11-30 00:00: 00 No Dose Unknown 0 11-30 00:00: 00 No Dose Unknown 0 11-30 00:00: 00 No Dose Unknown 0 11-30 00:00: 00 No Dose Unknown 0 11-30 00:00: 00 No Dose Unknown 0 11-30 00:00: 00 No Dose Unknown 0 11-30 00:00: 00 No Dose Unknown 0 11-30 00:00: 00 No Dose Unknown 0 11-30 00:00: 00 No Dose Unknown 0 11-30 00:00: 00 No Dose Unknown 0 11-16 00:00: 00 No losartan 100 mg tablet 0 11-16 00:00: 00 No 1mg Dose Unknown 0 11-16 00:00: 00 No losartan 100 mg tablet 0 11-16 00:00: 00 No 1mg Dose Unknown 0 11-16 00:00: 00 No losartan 100 mg tablet 0 11-16 00:00: 00 No 1mg Dose Unknown 0 11-16 00:00: 00 No losartan 100 mg tablet 0 11-16 00:00: 00 No 1mg Dose Unknown 0 - 00:00: 00 No Dose Unknown 0 11-14 00:00: 00 No Dose Unknown 0 11-14 00:00: 00 No Dose Unknown 0 11-14 00:00: 00 No ergocalcife rol, vitamin d2, 1,250 mcg (50,000 unit) capsule - 00:00: 00 12-17 05:59 :00 No [id number] Take 1 capsule by mouth weekly for 6 doses. [facility] esomeprazol e 40 mg capsule 1-03 02:30: 05 Yes 40mg Take 40 mg by mouth daily with breakfast. [facility] insulin detemir U-100 (LEVEMIR U-100 INSULIN) 100 unit/mL injection 11-07 02:30: 05 Yes inject under the skin. [facility] insulin regular, human (NOVOLIN R INJECTION) 11-07 02:30: 05 Yes Inject as directed. [facility] ferrous sulfate 325 mg (65 mg iron) tablet 11-06 00:00: 00 12-07 05:59 :00 No [id number] 325mg Take 1 tablet by mouth daily for 30 days. [facility] magnesium oxide 400 mg (241.3 mg magnesium) tablet 11-05 00:00: 00 11-21 05:59 :00 No [id number] 400mg Take 1 tablet by mouth daily for 15 days. [facility] Dose Unknown 2020-11 00:00: 00 [...] oin macrocrysta l 100 mg capsule 2020-11 0 00:00: 00 No 1mg nitrofurant oin macrocrysta l 100 mg capsule 2020-11 0- 00:00: 00 No 1mg nitrofurant oin macrocrysta l 100 mg capsule 2020-11 0 00:00: 00 No 1mg nitrofurant oin macrocrysta l 100 mg capsule 2020-11 0 00:00: 00 No 1mg methimazole 5 mg [...] 00 No 1mg methimazole 5 mg tablet 17 00:00: 00 No 1mg methimazole 5 mg tablet 17 00:00: 00 No 1mg Macrobid 100 mg capsule 6-14 00:00: 00 No 1mg Macrobid 100 mg capsule -14 00:00: 00 No 1mg Macrobid 100 mg capsule 614 00:00: 00 No 1mg Macrobid 100 mg capsule 6-14 00:00: 00 No 1mg hydrochloro thiazide 12.5 mg tablet 4-17 00:00: 00 No 1mg hydrochloro thiazide 12.5 mg tablet 4 00:00: 00 No 1mg hydrochloro thiazide 12.5 mg tablet 02-19 00:00: 00 No 1mg hydrochloro thiazide 12.5 mg tablet 02-19 00:00: 00 No 1mg Levemir U-100 Insulin 100 unit/mL subcutaneou s solution 4- 00:00: 00 No 30unit/ mL Novolin R Regular U-100 Insulin 100 unit/mL injection solution 02-12 00:00: 00 No 1unit/m L losartan 100 mg tablet 4 00:00: 00 No 1mg Levemir U-100 Insulin 100 unit/mL subcutaneou s solution 02-12 00:00: 00 No 30unit/ mL Novolin R Regular U-100 Insulin 100 unit/mL injection solution 4 00:00: 00 No 1unit/m L losartan 100 mg tablet 4 00:00: 00 No 1mg Levemir U-100 Insulin 100 unit/mL subcutaneou s solution 4 00:00: 00 No 30unit/ mL Novolin R Regular U-100 Insulin 100 unit/mL injection solution 4 00:00: 00 No 1unit/m L losartan 100 mg tablet 4 00:00: 00 No 1mg Levemir U-100 Insulin 100 unit/mL subcutaneou s solution 02-12 00:00: 00 No 30unit/ mL Novolin R Regular U-100 Insulin 100 unit/mL injection solution 4 00:00: 00 No 1unit/m L losartan 100 mg tablet - 00:00: 00 No 1mg losartan 50 mg tablet -24 00:00: 00 No 1mg diclofenac sodium 75 mg tablet,gaby yed release 3-24 00:00: 00 No 1mg cyclobenzap rine 5 mg tablet 3-24 00:00: 00 No 12mg losartan 50 [...] mL amitriptyli ne 50 mg tablet 2018-11 0- 00:00: 00 No 1mg Levemir U-100 Insulin [...] hours as needed for Pain (scale 4-6). [facility] Novolin 70/30 U-100 Insulin 100 [...] 20mg Take 1 capsule by mouth daily. [facility] Losartan Potassium 100 MG Losartan Potassium 100 MG No 1{table t} QD Losartan Potassium 100 MG Esomeprazol e Magnesium 20 MG Esomeprazol e Magnesium 20 MG No 1{capsu le} QD Esomeprazo le Magnesium 20 MG NovoLOG FlexPen 100 UNIT/ML NovoLOG FlexPen [...] No Dexcom G7 Sensor - Dexcom G7 [employer] Offbearer - Dexcom G7 [employer] Offbearer - No Dexcom G7 [employer] Offbearer - Ozempic (0.25 or 0.5 MG/DOSE) 2 [...] No Dexcom G7 Sensor - Dexcom G7 [employer] Offbearer - Dexcom G7 [employer] Offbearer - No Dexcom G7 [employer] Offbearer - Ozempic (0.25 or 0.5 MG/DOSE) 2 [...] No Dexcom G7 Sensor - Dexcom G7 [employer] Offbearer - Dexcom G7 [employer] Offbearer - No Dexcom G7 [employer] Offbearer - Ozempic (0.25 or 0.5 MG/DOSE) 2 [...] No Dexcom G7 Sensor - Dexcom G7 [employer] Offbearer - Dexcom G7 [employer] Offbearer - No Dexcom G7 [employer] Offbearer - Ozempic (0.25 or 0.5 MG/DOSE) 2 [...] No NovoLOG FlexPen 100 UNIT/ML Dexcom G7 [employer] Offbearer - Dexcom G7 [employer] Offbearer - No Dexcom G7 [employer] Offbearer - Atorvastati n Calcium 40 MG Atorvastati [...] No NovoLOG FlexPen 100 UNIT/ML Dexcom G7 [employer] Offbearer - Dexcom G7 [employer] Offbearer - No Dexcom G7 [employer] Offbearer - Atorvastati n Calcium 40 MG Atorvastati [...] Esomeprazo le Magnesium 20 MG Dexcom G7 [employer] Offbearer - Dexcom G7 [employer] Offbearer - No Dexcom G7 [employer] Offbearer - Dexcom G7 Sensor - Dexcom G7 [...] No Dexcom G7 Sensor - Dexcom G7 [employer] Offbearer - Dexcom G7 [employer] Offbearer - No Dexcom G7 [employer] Offbearer - NovoLOG FlexPen 100 UNIT/ML NovoLOG FlexPen 100 UNIT/ML No NovoLOG FlexPen 100 UNIT/ML Levemir FlexPen 100 UNIT/ML Levemir FlexPen 100 UNIT/ML No BID Levemir FlexPen 100 UNIT/ML Dexcom G7 [employer] Offbearer - Dexcom G7 [employer] Offbearer - No Dexcom G7 [employer] Offbearer - Ozempic (0.25 or 0.5 MG/DOSE) 2 [...] No Dexcom G7 Sensor - Dexcom G7 [employer] Offbearer - Dexcom G7 [employer] Offbearer - No Dexcom G7 [employer] Offbearer - Losartan Potassium 100 MG Losartan Potassium [...] No NovoLOG FlexPen 100 UNIT/ML Dexcom G7 [employer] Offbearer - Dexcom G7 [employer] Offbearer - No Dexcom G7 [employer] Offbearer - Zetia 10 MG Zetia 10 MG [...] Atorvastat in Calcium 40 MG Dexcom G7 [employer] Offbearer - Dexcom G7 [employer] Offbearer - No Dexcom G7 [employer] Offbearer - Trulicity 0.75 MG/0.5ML Trulicity 0.75 MG/0.5ML [...] le} QD Esomeprazo le Magnesium 20 MG Ezetimibe 10 MG Ezetimibe 10 MG No Ezetimibe 10 MG levoFLOXaci n 500 MG levoFLOXaci n 500 MG No 1{table t} QD levoFLOXac in 500 MG Metoprolol Tartrate 25 MG Metoprolol Tartrate 25 MG No 1{table t_with_ food} BID Metoprolol Tartrate 25 MG Aspirin 81 MG Aspirin 81 MG No 1{table t} QD Aspirin 81 MG Pioglitazon e HCl 45 MG Pioglitazon e HCl 45 MG No Pioglitazo ne HCl 45 MG Levemir FlexPen 100 UNIT/ML Levemir FlexPen 100 UNIT/ML No BID Levemir FlexPen 100 UNIT/ML Dexcom G7 Sensor - Dexcom G7 Sensor - No Dexcom G7 Sensor - Dexcom G7 [employer] Offbearer - Dexcom G7 [employer] Offbearer - No Dexcom G7 [employer] Offbearer - Ozempic (0.25 or 0.5 MG/DOSE) 2 [...] No Dexcom G7 Sensor - Dexcom G7 [employer] Offbearer - Dexcom G7 [employer] Offbearer - No Dexcom G7 [employer] Offbearer - Ozempic (0.25 or 0.5 MG/DOSE) 2 [...] No Dexcom G7 Sensor - Dexcom G7 [employer] Offbearer - Dexcom G7 Hot Plate [employer] Offbearer - No Dexcom G7 [employer] Offbearer - Ozempic (0.25 or 0.5 MG/DOSE) 2 [...] No Dexcom G7 Sensor - Dexcom G7 [employer] Offbearer - Dexcom G7 Hot Plate [employer] Offbearer - No Dexcom G7 Hot Plate [employer] Offbearer - Ozempic (0.25 or 0.5 MG/DOSE) 2 MG/3ML Ozempic (0.25 or 0.5 MG/DOSE) 2 MG/3ML No Ozempic (0.25 or 0.5 MG/DOSE) 2 MG/3ML Vital Signs Vital Name Observation Time Observation Value Comments S ource height 2024-03-06 16:20:00 62 [in_i] Commo n [facility] weight 2024-03-06 16:20:00 169 [lb_av] Comm on [facility] temperature 2024-03-06 16:20:00 98.4 [degF] Com mon [facility] bmi 2024-03-06 16:20:00 30.91 kg/m2 Comm on [facility] oximetry 2024-03-06 16:20:00 98 % Commo n [facility] respiratory rate 2024-03-06 16:20:00 17 /min [facility] blood pressure systolic 2024-03-06 16:20:00 94 mm[Hg] [facility] blood pressure diastolic 2024-03-06 16:20:00 74 mm[Hg] [facility] height 2024-02-22 16:00:00 62 [in_i] Commo n [facility] weight 2024-02-22 16:00:00 171 [lb_av] Comm on [facility] temperature 2024-02-22 16:00:00 98.7 [degF] Com mon [facility] bmi 2024-02-22 16:00:00 31.27 kg/m2 Comm on [facility] oximetry 2024-02-22 16:00:00 98 % Commo n [facility] respiratory rate 2024-02-22 16:00:00 17 /min Common [facility] blood pressure systolic 2024-02-22 16:00:00 139 mm[Hg[facility] blood pressure diastolic 2024-02-22 16:00:00 80 mm[Hg] [facility] height 2024-01-25 16:00:00 62 [in_i] Commo n [facility] weight 2024-01-25 16:00:00 167 [lb_av] Comm on [facility] temperature 2024-01-25 16:00:00 98.4 [degF] Com mon [facility] bmi 2024-01-25 16:00:00 30.54 kg/m2 Comm on [facility] oximetry 2024-01-25 16:00:00 97 % Commo n [facility] respiratory rate 2024-01-25 16:00:00 18 /min [facility] blood pressure systolic 2024-01-25 16:00:00 140 mm[Hg] Common [facility] blood pressure diastolic 2024-01-25 16:00:00 70 mm[Hg] [facility] height 2023 16:20:00 62 [in_i] Commo n [facility] weight 2023 16:20:00 162 [lb_av] Comm on [facility] temperature 2023 16:20:00 98.6 [degF] Com mon [facility] bmi 2023 16:20:00 29.63 kg/m2 Comm on [facility] oximetry 2023 16:20:00 99 % Commo n [facility] respiratory rate 2023 16:20:00 18 /min [facility] blood pressure systolic 2023 16:20:00 138 mm[Hg] [facility] blood pressure diastolic 2023 16:20:00 72 mm[Hg] [facility] height 2023-12-07 16:00:00 62 [in_i] Commo n [facility] weight 2023-12-07 16:00:00 162 [lb_av] Comm on [facility] temperature 2023-12-07 16:00:00 98.3 [degF] Com mon [facility] bmi 2023-12-07 16:00:00 29.63 kg/m2 Comm on [facility] oximetry 2023-12-07 16:00:00 98 % Commo n [facility] respiratory rate 2023-12-07 16:00:00 16 /min [facility] blood pressure systolic 2023-12-07 16:00:00 140 mm[Hg] [facility] blood pressure diastolic 2023-12-07 16:00:00 60 mm[Hg] [facility] Systolic blood pressure 2023-11-27 21:40:00 144 mm[Hg] [facility] Diastolic blood pressure 2023-11-27 21:40:00 80 mm[Hg] [facility] Heart rate 2023-11-27 21:40:00 75 /min [facility] Body temperature 2023-11-27 21:40:00 37 Sabiha [facility] Respiratory rate 2023-11-27 21:40:00 18 /min [facility] Oxygen saturation in Arterial blood by Pulse oximetry 2023-11-27 21:40:00 99 /min [facility] Body height 2023-11-27 18:41:00 154.9 cm [facility] Body weight 2023-11-27 18:41:00 71.668 kg [facility] BMI 2023-11-27 18:41:00 29.85 kg/m2 [facility] height 2023-11-26 13:20:00 62 [in_i] Commo n [facility] weight 2023-11-26 13:20:00 158 [lb_av] Comm on [facility] temperature 2023-11-26 13:20:00 98 [degF] Comm on [facility] bmi 2023-11-26 13:20:00 [facility] 13:20:00 [facility] 2023-11-26 13:20:00 18 /min [facility] blood pressure systolic 2023-11-26 13:20:00 140 mm[Hg] [facility] blood pressure diastolic 2023-11-26 13:20:00 80 mm[Hg] [facility] Systolic blood pressure 2021-11-14 17:34:00 170 mm[Hg] [facility] Diastolic blood pressure 2021-11-14 17:34:00 80 mm[Hg] [facility] Heart rate 2021-11-14 17:34:00 80 /min [facility] 2021-11-14 17:32:00 36.83 Sabiha [facility] Respiratory rate 2021-11-14 17:32:00 20 /min [facility] Body height 2021-11-14 17:32:00 157.5 cm [facility] Body weight 2021-11-14 17:32:00 62.596 kg [facility] BMI 2021-11-14 17:32:00 25.24 kg/m2 [facility] Oxygen saturation in Arterial blood by Pulse oximetry 2021-11-14 17:32:00 98 /min [facility] BP Systolic 2022-11-10 16:39:00 146 mm[Hg] [...] OF BENEFITS 2023-11-27 21:19:34 Docto r Unassigned, Odem [facility] CBC WITHOUT DIFF 2023-11-27 19:55:00 Irene Waggoner [facility] COMP. METABOLIC PANEL ([id number]) 2023-11-27 19:55:00 Irene Waggoner [facility] POCT GLUCOSE (AUTOMATED) 2023-11-27 18:49:00 Doctor Unassigned, Odem [facility] CONSENT/REFUSAL FOR DIAGNOSIS AND TREATMENT 2023-11-27 18:27:13 Doctor Unassigned, Odem [facility] REFERRAL- REQUEST/RESPONSE 2022-11-20 06:01:00 Doctor Unassigned, Odem [facility] [id number] Ecg Routine Ecg W/least 12 Lds W/i r 2017-04-27 00:00:00 Plan of Care Planned Activity Planned Date Details Comments Source Goal Plan of Care Note [code = 96564-6] Goal Plan of Care Note [code = 35240-9] Goal Plan of Care Note [code = 61735-1] Goal Plan of Care Note [code = 30084-0] Goal Plan of Care Note [code = 27394-4] Goal Plan of Care Note [code = 47353-8] Goal Plan of Care Note [code = 95182-4] Goal Plan of Care Note [code = 99947-8] Goal Plan of Care Note [code = 60509-5] Goal Plan of Care Note [code = 72494-1] Goal Plan of Care Note [code = 50718-4] Goal Plan of Care Note [code = 14426-4] Goal Plan of Care Note [code = 68769-9] Goal Plan of Care Note [code = 73789-0] Goal Plan of Care Note [code = 98179-8] Goal Plan of Care Note [code = 49015-8] Goal Plan of Care Note [code = 82447-1] Goal Plan of Care Note [code = 56829-8] Goal Plan of Care Note [code = 85470-0] Goal Plan of Care Note [code = 26097-1] Goal Plan of Care Note [code = 15482-1] Goal Plan of Care Note [code = 04597-8] Goal Plan of Care Note [code = 89708-6] Goal Plan of Care Note [code = 74921-9] Goal Plan of Care Note [code = 17938-4] Goal Plan of Care Note [code = 87203-9] Goal Plan of Care Note [code = 34349-2] Goal Plan of Care Note [code = 10513-8] Goal Plan of Care Note [code = 87993-0] Goal Plan of Care Note [code = 77418-2] Goal Plan of Care Note [code = 69851-4] Goal Plan of Care Note [code = 05726-7] Goal Plan of Care Note [code = 16387-0] Goal Plan of Care Note [code = 84870-8] Goal Plan of Care Note [code = 95127-3] Goal Plan of Care Note [code = 53848-2] Goal Plan of Care Note [code = 05830-8] Goal Plan of Care Note [code = 47364-2] Goal Plan of Care Note [code = 98905-5] Goal Plan of Care Note [code = 25246-2] Goal Plan of Care Note [code = 30600-1] Goal Plan of Care Note [code = 90770-2] Goal Plan of Care Note [code = 69749-6] Goal Plan of Care Note [code = 44479-9] Goal Plan of Care Note [code = 64512-3] Goal Plan of Care Note [code = 03215-0] Goal Plan of Care Note [code = 79501-2] Goal Plan of Care Note [code = 36732-6] Goal Plan of Care Note [code = 64223-3] Goal Plan of Care Note [code = 19594-2] Goal Plan of Care Note [code = 45115-8] Goal Plan of Care Note [code = 65234-6] Goal Plan of Care Note [code = 78190-9] Goal Plan of Care Note [code = 62716-8] Goal Plan of Care Note [code = 48891-8] Goal Plan of Care Note [code = 62921-8] Goal Plan of Care Note [code = 94268-7] Goal Plan of Care Note [code = 90748-2] Goal Plan of Care Note [code = 10980-5] Goal Plan of Care Note [code = 54123-6] Goal Plan of Care Note [code = 47398-5] Goal Plan of Care Note [code = 80656-8] Goal Plan of Care Note [code = 90532-2] Goal Plan of Care Note [code = 15033-2] Goal Plan of Care Note [code = 57214-5] Goal Plan of Care Note [code = 36905-2] Goal Plan of Care Note [code = 37434-7] Goal Plan of Care Note [code = 14947-5] Goal Plan of Care Note [code = 18878-8] Goal Plan of Care Note [code = 34672-8] Goal Plan of Care Note [code = 54284-0] Goal Plan of Care Note [code = 68704-1] Goal Plan of Care Note [code = 20895-5] Goal Plan of Care Note [code = 53269-9] Goal Plan of Care Note [code = 07835-3] Goal Plan of Care Note [code = 55126-0] Goal Plan of Care Note [code = 45924-7] Goal Plan of Care Note [code = 74435-0] Goal Plan of Care Note [code = 15874-2] Goal Plan of Care Note [code = 87720-7] Goal Plan of Care Note [code = 76775-6] Goal Plan of Care Note [code = 83181-1] Goal Plan of Care Note [code = 60875-8] Goal Plan of Care Note [code = 99069-8] Goal Plan of Care Note [code = 21831-8] Goal Plan of Care Note [code = 38770-2] Goal Plan of Care Note [code = 67883-9] Goal Plan of Care Note [code = 11775-7] Goal Plan of Care Note [code = 56018-3] Goal Plan of Care Note [code = 02893-0] Goal Plan of Care Note [code = 33849-5] Goal Plan of Care Note [code = 80191-8] Goal Plan of Care Note [code = 00368-2] Goal Plan of Care Note [code = 58450-2] Goal Plan of Care Note [code = 03068-4] Goal Plan of Care Note [code = 20704-6] Goal Plan of Care Note [code = 26256-1] Goal Plan of Care Note [code = 51390-9] Goal Plan of Care Note [code = 56093-7] Goal Plan of Care Note [code = 18456-4] Goal Plan of Care Note [code = 18445-1] Goal Plan of Care Note [code = 17835-4] Goal Plan of Care Note [code = 20164-7] Goal Plan of Care Note [code = 19707-1] Goal Plan of Care Note [code = 84950-9] Goal Plan of Care Note [code = 81755-6] Goal Plan of Care Note [code = 49933-2] Goal Plan of Care Note [code = 85978-4] Goal Plan of Care Note [code = 52945-0] Goal Plan of Care Note [code = 30261-2] Goal Plan of Care Note [code = 01343-3] Goal Plan of Care Note [code = 56000-9] Goal Plan of Care Note [code = 71995-2] Goal Plan of Care Note [code = 42090-1] Goal Plan of Care Note [code = 80550-6] Goal Plan of Care Note [code = 53013-5] Goal Plan of Care Note [code = 60178-0] Goal Plan of Care Note [code = 73563-9] Goal Plan of Care Note [code = 21131-5] Goal Plan of Care Note [code = 41739-5] Goal Plan of Care Note [code = 06822-1] Goal Plan of Care Note [code = 31050-4] Goal Plan of Care Note [code = 55323-6] Goal Plan of Care Note [code = 48366-7] Goal Plan of Care Note [code = 88584-9] Goal Plan of Care Note [code = 10606-2] Goal Plan of Care Note [code = 89909-7] Goal Plan of Care Note [code = 52672-1] Goal Plan of Care Note [code = 52465-4] Goal Plan of Care Note [code = 20828-3] Goal Plan of Care Note [code = 69006-0] Goal Plan of Care Note [code = 63468-8] Goal Plan of Care Note [code = 70662-2] Goal Plan of Care Note [code = 81865-8] Goal Plan of Care Note [code = 88079-7] Goal Plan of Care Note [code = 85817-4] Goal Plan of Care Note [code = 41889-3] Goal Plan of Care Note [code = 49061-3] Goal Plan of Care Note [code = 87787-6] Goal Plan of Care Note [code = 10499-8] Goal Plan of Care Note [code = 03860-8] Goal Plan of Care Note [code = 23500-7] Goal Plan of Care Note [code = 33636-6] Goal Plan of Care Note [code = 01139-4] Goal Plan of Care Note [code = 27902-3] Goal Plan of Care Note [code = 24139-4] Goal Plan of Care Note [code = 22043-7] Goal Plan of Care Note [code = 97063-4] Goal Plan of Care Note [code = 99739-3] Goal Plan of Care Note [code = 60948-4] Goal Plan of Care Note [code = 44732-4] Goal Plan of Care Note [code = 78784-8] Goal Plan of Care Note [code = 11966-4] Encounters Start Date/Time End Date/Time Encounter Type Admission Type Attending [facility] Care Facility Care Department Encounter ID Source 2024-02-22 16:33:01 Outpatient Tigist Damon [facility] [id number] [facility] 2024-01-23 10:51:00 Outpatient Tigist Damon [facility] [id number] [facility] 2024-01-10 16:57:00 Outpatient Tigist Damon [facility] [id number] [facility] 2023-12-25 09:46:01 Outpatient Tigist Damon [facility] ST[facility] [id number] [facility] 2023-12-05 07:31:00 Outpatient Tigist Damon [facility] [id number] [facility] 2023-11-26 13:13:01 Outpatient Tigist Damon [facility] ST[facility] [id number] [facility] 2024-04-02 10:30:00 2024-04-02 10:30:00 Outpatient JASSON STARK [id number] Maria R Joyce 2024-03-10 00:00:00 2024-03-10 00:00:00 (TEL) [facility]LMLC STL[facility]C [id number] [facility] 2024-03-06 00:00:00 2024-03-06 00:00:00 OFFICE VISIT ESTAB PT LEVEL 4 [facility] ST[facility] [id number] [facility] 2024-03-03 00:00:00 2024-03-03 00:00:00 (TEL) [facility]LMLC ST[facility]C [id number] [facility] 2024-02-22 00:00:00 2024-02-22 00:00:00 OFFICE VISIT ESTAB PT LEVEL 4 [facility] ST[facility]C [id number] [facility] 2024-02-22 00:00:00 2024-02-22 00:00:00 (TEL) [facility]LMLC STL[facility]C [id number] [facility] 2024-02-08 00:00:00 2024-02-08 00:00:00 (TEL) [facility]LMLC STLMLC [id number] [facility] 2024-01-25 00:00:00 2024-01-25 00:00:00 PREV VISIT EST AGE 40-64 [facility]LMLC STLMLC [id number] [facility] 2024-01-18 00:00:00 2024-01-18 00:00:00 (TEL) STLMLC STLMLC [id number] [facility] 2024-01-11 00:00:00 2024-01-11 00:00:00 OFFICE VISIT ESTAB PT LEVEL 3 [facility] ST[facility]C [id number] [facility] 2024-01-10 00:00:00 2024-01-10 00:00:00 (TEL) [facility]LMLC STLMLC [id number] [facility] 2023 00:00:00 2023 00:00:00 OFFICE VISIT ESTAB PT LEVEL 4 [facility] STLMLC [id number] [facility] 2023-12-24 00:00:00 2023-12-24 00:00:00 (TEL) [facility]LMLC STLMLC [id number] [facility] 2023-12-17 00:00:00 2023-12-17 00:00:00 (TEL) STLMLC STLMLC [id number] [facility] 2023-12-11 13:30:00 2023-12-11 13:30:00 Outpatient JASSON STARK [id number] Maria R Joyce 2023-12-07 00:00:00 2023-12-07 00:00:00 OFFICE VISIT ESTAB PT LEVEL 4 [facility]C STLMLC [id number] [facility] 2023-11-29 00:00:00 2023-11-29 00:00:00 (TEL) [facility]LMLC STL[facility]C [id number] [facility] 2023-11-28 00:00:00 2023-11-28 00:00:00 (TEL) STLMLC STLMLC [id number] [facility] 2023-11-27 12:42:00 2023-11-27 15:41:00 Emergency X IRENE WAGGONER [facility] ERT [id number] [facility] 2023-11-27 12:42:00 2023-11-27 15:41:00 Emergency Irene Waggoner [facility] 1..840.114 350.1.13.10 4.2.7.2.686 [id number] [facility] 2023-11-27 00:00:00 2023-11-27 00:00:00 (TEL) STLMLC STLMLC [id number] [facility] 2023-11-27 00:00:00 2023-11-27 00:00:00 (TEL) STLMLC STL[facility]C [id number] [facility] 2023-11-27 00:00:00 2023-11-27 00:00:00 OFFICE VISIT ESTAB PT LEVEL 5 [facility]C STL[facility]C [id number] [facility] 2023-11-27 00:00:00 2023-11-27 00:00:00 (TEL) STLMLC STLMLC [id number] [facility] 2023-11-26 00:00:00 2023-11-26 00:00:00 OFFICE VISIT NEW PT LEVEL 4 [facility]LMLC STL[facility]C [id number] [facility] 2023-07-05 14:50:31 2023-07-05 14:50:31 Outpatient SFA SFA [id number] Maurice Dominguez Elia 2023-04-14 12:19:21 2023-04-14 12:19:21 Outpatient SFA SFA [id number] Maurice Dominguez Elia 2022-11-24 00:00:00 2022-11-24 00:00:00 Patient Secure Msg Doctor Unassigned, Odem [facility] 1..840.114 350.1.13.10 4.2.7.2.686 [id number] [facility] 2022-11-20 15:43:47 2022-11-20 15:43:47 Outpatient SFA [facility] [id number] Maurice Rodrigez 2022-11-20 00:00:00 2022-11-20 00:00:00 Orders Only Doctor Unassigned, Odem [facility] 1.2.840.114 350.1.13.10 4.2.7.2.686 [id number] [facility] 2022-11-10 16:30:38 2022-11-10 16:30:38 Outpatient SFA [facility] [id number] Maurice Rodrigez 2022-11-10 00:00:00 2022-11-10 00:00:00 Outpatient Visit [id number] [id number] 10f-d4abbd a4bbbd 2022-09-14 17:09:48 2022-09-14 17:09:48 Outpatient SFA [facility] [id number] Maurice Rodrigez 2022-09-14 00:00:00 2022-09-14 00:00:00 Outpatient Visit [id number]-9 [id number] 2022-08-18 14:24:12 2022-08-18 14:24:12 Outpatient SFA [facility] [id number] Maurice Rodrigez 2022-08-18 00:00:00 2022-08-18 00:00:00 Outpatient Visit [id number] -[id number] w5d-4mmo-x [id number] [id number] 2022-06-26 00:00:00 2022-06-26 00:00:00 Outpatient Visit [id number] -[id number]-[id number] [id number] 2021-12-15 11:15:00 2021-12-15 11:15:00 Outpatient R HEATHER HOUSTON [facility] [id number] [facility] 2021-11-14 10:45:00 2021-11-14 11:25:15 Outpatient R HEATHER HOUSTON [facility] [id number] [facility] 2021-11-14 10:45:00 2021-11-14 11:25:15 Office Visit Heather Houston [facility] 1.0.114 350.1.13.10 4.2.7.2.686 [id number] [facility] 2021-11-14 10:45:00 2021-11-14 11:25:15 Outpatient R HEATHER HOUSTON [facility] [id number] [facility] 2021-11-14 00:00:00 2021-11-14 00:00:00 Orders Only Doctor Unassigned, Odem [facility] 1.0.114 350.1.13.10 4.2.7.2.686 [id number] [facility] 2021-11-07 00:00:00 2021-11-07 00:00:00 Transition of Care Felipa Monson 1.840.114 350.1.13.10 4.2.7.2.686 [id number] [facility] 2021-11-02 15:28:00 2021-11-05 14:30:00 Inpatient X GUZMAN SUTTON [facility] [id number] [facility] 2021-11-02 15:28:00 2021-11-05 14:30:00 Hospital Encounter Serenity Doe, Guzman Balderas [facility] 1.0.114 350.1.13.10 4.2.7.2.686 [id number] [facility] 2019-07-01 20:04:11 2019-07-01 21:35:00 Emergency Wiliam Gutierres [facility] 1.2.840.114 350.1.13.10 4.2.7.2.686 [id number] [facility] 2019-07-01 20:04:11 2019-07-01 21:35:00 Emergency Wiliam Gutierres [facility] 1.2.840.114 350.1.13.10 4.2.7.2.686 [id number] 2013-10-29 15:36:00 2013-10-29 23:10:00 Emergency ER FLYNN [facility] [id number] [facility] Results Test Description Test Time Test Comments Results Result Co mments Source HEMOGLOBIN [id number] 00:00:00* Test Item Value Reference Range Interpretation Comme [facility] A1C (test code = 4548-4) 8.3 STREP A [id number] 00:00:00ResultHEMOGLOBIN [id number] 00:00:00* Test Item Value Reference Range Interpretation Comme [facility] A1C (test code = 4548-4) 10.7 POCT GLUCOSE (AUTOMATED)2023-11-27 18:53:55* Test Item Value Reference Range Interpretation Comme [facility] POCT GLU (test code = 7456412913) 167 mg/dL 70-110 H Lab Interpretation (test cod e = 96153-0) Abnormal [facility] W/O DIFF, WITH [id number] 00:00:00* Test Item Value Reference Range Interpretation Comme [facility] HEMATOCRIT (test code = 18934-1) 33.3 % See_Comment L [Automated messa ge] [...] result as normal/abnormal. MCH (test code = 82083-2) 29.2 PG See_Comment [Automated [employer]] The system which generated this result transmitted reference range: 25.0-33.0 PG. The reference range was not used to interpret this result as normal/abnormal. MCHC (test code = 20902-9) 32.4 G/DL See_Comment [Automated [employer] ge] The system which generated this result transmitted reference range: 31.0-36.0 G/DL. The reference range was not used to interpret this result as normal/abnormal. MCV (test code = 52572-5) 90.0 fL See_Comment [Automated [employer]] The system which generated this result transmitted reference range: 80.0-99.0 fL. The reference range was not used to interpret this result as normal/abnormal. PLATELET COUNT (test code = 52814-0) 269 K/UL See_Comment [Automated [employer] ge] The system which generated this result transmitted reference range: 130-400 K/UL. The reference range was not used to interpret this result as normal/abnormal. RBC (test code = 03252-9) 3.70 M/UL See_Comment L [Automated [employer] [facility]] The system which generated this result transmitted reference range: 3.80-5.40 M/UL. The reference range was not used to interpret this result as normal/abnormal. WBC (test code = 96319-5) 9.7 K/UL See_Comment [Automated [employer]] The system which generated this result transmitted reference range: 3.5-11.0 K/UL. The reference range was not used to interpret this result as normal/abnormal. UA, MICROSCOPIC, REFLEX TO [id number] 00:00:00* Test Item Value Reference Range Interpretation Comme nts APPEARANCE (test code = 5767-9) CLOUDY CLEAR A BACTERIA (test code = 90533-2) >3+ NONE SEEN BILIRUBIN (test code = 5770-3) NEGATIVE NEGATIVE CASTS, HYALINE (test code = 72818-5) NONE SEEN NONE-TRACE COLOR (test code = 5778-6) YELLOW YELLOW-STRAW EPITHELIAL CELLS (test code = 96643-2) 0-5 /HPF See_Comment [Automated messa ge] The [...] NEGATIVE NEGATIVE OCCULT BLOOD (test code = 41549-4) TRACE NEGATIVE A pH (test code = 5803-2) 5.5 5.0-9.0 PROTEIN (test code = 13697-5) 1+ NEGATIVE A RED BLOOD CELLS (test code = 71871-5) 0-2 /HPF See_Comment [Automated messa ge] The system which generated this result transmitted reference range: 0-2 /HPF. The reference range was not used to interpret this result as normal/abnormal. SPECIFIC GRAVITY (test code = 5811-5) 1.027 1.005-1.035 UROBILINOGEN (test code = 13655-7) 0.2 MG/DL See_Comment [Automated messa ge] The system which generated this result transmitted reference range: <=2.0 MG/DL. The reference range was not used to interpret this result as normal/abnormal. WHITE BLOOD CELLS (test code = 46270-0) 0-5 /HPF See_Comment [Automated messa ge] The system which generated this result transmitted reference range: 0-5 /HPF. The reference range was not used to interpret this result as normal/abnormal. LIPID [id number] 00:00:00* Test Item Value Reference Range Interpretation Comme nts CALC LDL CHOL (test code = 14659-7) 147 MG/DL See_Comment H [Automated messa ge] [...] code = 2085-9) 61 MG/DL See_Comment [Automated messa ge] The system which generated this result transmitted reference range: >39 MG/DL. The reference range was not used to interpret this result as normal/abnormal. RISK RATIO LDL/HDL (test code = 67422-7) 2.41 RATIO See_Comment [Automated message] The system which generated this result transmitted reference range: <3.22 RATIO. The reference range was not used to interpret this result as normal/abnormal. TRIGLYCERIDES (test code = 2571-8) 220 MG/DL See_Comment H [Automated messa ge] The system which generated this result transmitted reference range: <150 MG/DL. The reference range was not used to interpret this result as normal/abnormal. ALBUMIN/CREATININE RATIO, RANDOM [id number] 00:00:00* Test Item Value Reference Range Interpretation Comme nts ALBUMIN, URINE, RANDOM (test code = 23681-6) 12.4 MG/DL NOT ESTAB MG/DL CALC ALBUMIN/CREAT, RND (test code = 94466-1) 388 MG/G See_Comment H [Automated [employer]] The system which generated this result transmitted reference range: <30 MG/G. The reference range was not used to interpret this result as normal/abnormal. CREATININE, URINE, CONC. (test code = 2161-8) 32.0 MG/DL NOT ESTAB MG/DL COMPREHENSIVE METABOLIC [id number] 00:00:00* Test Item Value Reference Range Interpretation Comme nts ALBUMIN (test code = 1751-7) 4.4 G/DL See_Comment [Automated messa ge] The system [...] result as normal/abnormal. CALCIUM (test code = 62193-7) 9.6 MG/DL See_Comment [Automated messa ge] The [...] as normal/abnormal. CALC GLOBULIN (test code = 90483-4) 2.8 G/DL See_Comment [Automated messa ge] The [...] normal/abnormal. eGFR (2020 CKD-EPI) (test code = 60767-5) 40 ML/MIN/1.73 See_Comment L [Automated messa ge] [...] to interpret this result as normal/abnormal. HEMOGLOBIN [id number] 00:00:00* Test Item Value Reference Range Interpretation Comme nts A1C (test code = 4548-4) >15.0 LIPID [id number] 04:57:04* Test Item Value Reference Range Interpretation [...] SPECIMENS. FOR MOREINFORMATION, SEE CLIENT ANNOUNCEMENT AT [email or web address] RISK RATIO LDL/HDL (test code = 223) 2.30 RATIO <3.22 COMPREHENSIVE METABOLIC [id number] 04:57:04* Test Item Value Reference Range Interpretation Comme nts GLUCOSE (test code = 7) 184 MG/DL 70-99 H BUN (test code = 2207) 66 MG/DL 6-20 H CREATININE (test code = 2213) 1.87 MG/DL 0.60-1.30 H eGFR (2020 CKD-EPI) (test code = 86510) 31 ML/MIN/1.73 >60 L CALC BUN/CREAT (test code = 2235) 35 RATIO 6-28 H SODIUM (test code = 2230) 138 MEQ/L 133-146 POTASSIUM (test code = 8) 5.0 MEQ/L 3.5-5.4 CHLORIDE (test code = 2215) 100 MEQ/L 95-107 CARBON DIOXIDE (test code = 2206) 20 MEQ/L 19-31 CALCIUM (test code = 220) 11.0 MG/DL 8.5-10.5 H PROTEIN, TOTAL (test code = 2228) 7.7 G/DL 6.1-8.3 ALBUMIN (test code = 1) 4.7 G/DL 3.5-5.2 CALC GLOBULIN (test code = 2240) 3.0 G/DL 1.9-3.7 CALC A/G RATIO (test code = 223) 1.6 RATIO 1.0-2.6 BILIRUBIN, TOTAL (test code = 220) <0.2 MG/DL See_Comment [Automated me ssage] The system which generated this result transmitted reference range: <=1.2. The reference range was not used to interpret this result as normal/abnormal. ALKALINE PHOSPHATASE (test code = 4) 137 U/L 40-136 H AST (test code = 2218) 17 U/L 9-40 ALT (test code = 2219) 21 U/L 5-40 UNLESS OTHERWISE INDICATED, ALL TESTING PERFORMED [facility] [employer] [address] [place] [address] INTERNET MARKETING ASSISTANT: MARGI OCHOA M.D. CLIA NUMBER [id number] [place]. [id number] HEMOGLOBIN [id number] 03:03:22* Test Item Value Reference Range Interpretation Comme nts HEMOGLOBIN A1c (test code = 02527) 10.6 % 4.2-5.6 H [employer] GUIDELINES FOR HGB A1C: [...] CONSIDER ALTERNATE TESTING OR LABORATORY CONSULTATION. HEMOGLOBIN [id number] 05:15:03* Test Item Value Reference Range Interpretation Comme [facility] HEMOGLOBIN A1c (test code = 35987) 13.9 % 4.2-5.6 H [employer] GUIDELINES FOR HGB A1C: [...] CONSULTATION. UNLESS OTHERWISE INDICATED, ALL TESTING PERFORMED [employer] [address] [place] [address] INTER[employer] MARKETING ASSISTANT: MARGI OCHOA M.D. CLIA NUMBER [id number] [place]. [id number] HEMOGLOBIN [id number] 00:00:00* Test Item Value Reference Range Interpretation Comme nts HEMOGLOBIN A1c (test code = 34491) 13.9 % HEMOGLOBIN [id number] 00:00:00* Test Item Value Reference Range Interpretation Comme nts HEMOGLOBIN A1c (test code = 31398) 13.9 % HEMOGLOBIN [id number] 00:00:00* Test Item Value Reference Range Interpretation Comme nts HEMOGLOBIN A1c (test code = 52544) 13.9 % HEMOGLOBIN [id number] 00:00:00* Test Item Value Reference Range Interpretation Comme nts HEMOGLOBIN A1c (test code = 09114) 13.9 % HEMOGLOBIN [id number] 00:00:00* Test Item Value Reference Range Interpretation Comme nts HEMOGLOBIN A1c (test code = 76558) 13.9 % HEMOGLOBIN [id number] 00:00:00* Test Item Value Reference Range Interpretation Comme nts HEMOGLOBIN A1c (test code = 64646) 13.9 % COMPREHENSIVE METABOLIC [id number] 06:03:34* Test Item Value Reference Range Interpretation Comme nts GLUCOSE (test code = 2216) 72 MG/DL 70-99 BUN (test code = 2207) 45 MG/DL 6-20 H CREATININE (test code = 2213) 1.24 MG/DL 0.60-1.30 eGFR (2020 CKD-EPI) (test code = 95929) 51 ML/MIN/1.73 >60 L CALC BUN/CREAT (test code = 2234) 36 RATIO 6-28 H SODIUM (test code = 2230) 140 MEQ/L 133-146 POTASSIUM (test code = 2228) 4.5 MEQ/L 3.5-5.4 CHLORIDE (test code = 5) 104 MEQ/L 95-107 CARBON DIOXIDE (test code = 2206) 24 MEQ/L 19-31 CALCIUM (test code = 220) 10.2 MG/DL 8.5-10.5 PROTEIN, TOTAL (test code = 2228) 7.0 G/DL 6.1-8.3 ALBUMIN (test code = 2200) 4.2 G/DL 3.5-5.2 CALC GLOBULIN (test code = 2240) 2.8 G/DL 1.9-3.7 CALC A/G RATIO (test code = 223) 1.5 RATIO 1.0-2.6 BILIRUBIN, TOTAL (test code = 2206) <0.2 MG/DL See_Comment [Automated me ssage] The system which generated this result transmitted reference range: <=1.2. The reference range was not used to interpret this result as normal/abnormal. ALKALINE PHOSPHATASE (test code = 4) 134 U/L 40-136 AST (test code = 2218) 23 U/L 9-40 ALT (test code = 2219) 19 U/L 5-40 UNLESS OTHERWISE INDICATED, ALL TESTING PERFORMED [facility] [employer] [address] [place] [address] INTERNET MARKETING ASSISTANT: MARGI OCHOA M.D. [place] NUMBER [id number] [facility]. [id number] HEMOGLOBIN [id number] 05:25:13* Test Item Value Reference Range Interpretation Comme [facility] HEMOGLOBIN A1c (test code = 83521) 13.8 % 4.2-5.6 H [employer] GUIDELINES FOR HGB A1C: [...] CONSIDER ALTERNATE TESTING OR LABORATORY CONSULTATION. HEMOGLOBIN [id number] 00:00:00* Test Item Value Reference Range Interpretation Comme [facility] HEMOGLOBIN A1c (test code = 51551) 13.8 % HEMOGLOBIN [id number] 00:00:00* Test Item Value Reference Range Interpretation Comme [facility] HEMOGLOBIN A1c (test code = 40974) 13.8 % HEMOGLOBIN [id number] 00:00:00* Test Item Value Reference Range Interpretation Comme [facility] HEMOGLOBIN A1c (test code = 39700) 13.8 % COMPREHENSIVE METABOLIC [id number] 00:00:00* Test Item Value Reference Range Interpretation Comme nts GLUCOSE (test code = 2217) 72 MG/DL BUN (test code = 2208) 45 MG/DL CREATININE (test code = 2214) 1.24 MG/DL eGFR (2020 CKD-EPI) (test co de = 64856) 51 ML/MIN/1.73 CALC BUN/CREAT (test code = [...] code = 2219) 19 U/L COMPREHENSIVE METABOLIC [id number] 00:00:00* Test Item Value Reference Range Interpretation Comme nts GLUCOSE (test code = 2217) 72 MG/DL BUN (test code = 2208) 45 MG/DL CREATININE (test code = 2214) 1.24 MG/DL eGFR (2020 CKD-EPI) (test co de = 86073) 51 ML/MIN/1.73 CALC BUN/CREAT (test code = [...] (test code = 2219) 19 U/L HEMOGLOBIN [id number] 00:00:00* Test Item Value Reference Range Interpretation Comme nts HEMOGLOBIN A1c (test code = 20621) 13.8 % HEMOGLOBIN [id number] 00:00:00* Test Item Value Reference Range Interpretation Comme nts HEMOGLOBIN A1c (test code = 43063) 13.8 % HEMOGLOBIN [id number] 00:00:00* Test Item Value Reference Range Interpretation Comme nts HEMOGLOBIN A1c (test code = 51303) 13.8 % COMPREHENSIVE METABOLIC [id number] 00:00:00* Test Item Value Reference Range Interpretation Comme nts GLUCOSE (test code = 2217) 72 MG/DL BUN (test code = 2208) 45 MG/DL CREATININE (test code = 2214) 1.24 MG/DL eGFR (2020 CKD-EPI) (test co de = 82397) 51 ML/MIN/1.73 CALC BUN/CREAT (test code = [...] code = 2219) 19 U/L COMPREHENSIVE METABOLIC [id number] 00:00:00* Test Item Value Reference Range Interpretation Comme nts GLUCOSE (test code = 2217) 72 MG/DL BUN (test code = 2208) 45 MG/DL CREATININE (test code = 2214) 1.24 MG/DL eGFR (2020 CKD-EPI) (test co de = 68804) 51 ML/MIN/1.73 CALC BUN/CREAT (test code = [...] (test code = 2219) 19 U/L HEMOGLOBIN [id number] 00:00:00* Test Item Value Reference Range Interpretation Comme nts HEMOGLOBIN A1c (test code = 55100) 13.8 % HEMOGLOBIN [id number] 00:00:00* Test Item Value Reference Range Interpretation Comme nts HEMOGLOBIN A1c (test code = 24715) 13.8 % HEMOGLOBIN [id number] 00:00:00* Test Item Value Reference Range Interpretation Comme nts HEMOGLOBIN A1c (test code = 56426) 13.8 % COMPREHENSIVE METABOLIC [id number] 00:00:00* Test Item Value Reference Range Interpretation Comme nts GLUCOSE (test code = 2217) 72 MG/DL BUN (test code = 2208) 45 MG/DL CREATININE (test code = 2214) 1.24 MG/DL eGFR (2020 CKD-EPI) (test co de = 27394) 51 ML/MIN/1.73 CALC BUN/CREAT (test code = [...] code = 2219) 19 U/L COMPREHENSIVE METABOLIC [id number] 00:00:00* Test Item Value Reference Range Interpretation Comme nts GLUCOSE (test code = 2217) 72 MG/DL BUN (test code = 2208) 45 MG/DL CREATININE (test code = 2214) 1.24 MG/DL eGFR (2020 CKD-EPI) (test co de = 98566) 51 ML/MIN/1.73 CALC BUN/CREAT (test code = [...] 19 U/L HIV 1/2 4TH GEN, RFLX [id number] 04:37:11* Test Item Value Reference Range Interpretation Comme nts HIV 1/2 4TH GEN, RFLX CONF ( test code = 3514) NON-REACTIVE NON-REACTIVE HIV AB/AG COMBO RFLX [id number] 00:00:00* Test Item Value Reference Range Interpretation Comme nts HIV 1/2 4TH GEN, RFLX CONF ( test code = 3514) NON-REACTIVE HIV AB/AG COMBO RFLX [id number] 00:00:00* Test Item Value Reference Range Interpretation Comme nts HIV 1/2 4TH GEN, RFLX CONF ( test code = 3514) NON-REACTIVE HIV AB/AG COMBO RFLX [id number] 00:00:00* Test Item Value Reference Range Interpretation Comme nts HIV 1/2 4TH GEN, RFLX CONF ( test code = 3514) NON-REACTIVE HIV AB/AG COMBO RFLX [id number] 00:00:00* Test Item Value Reference Range Interpretation Comme nts HIV 1/2 4TH GEN, RFLX CONF ( test code = 3514) NON-REACTIVE HIV AB/AG COMBO RFLX [id number] 00:00:00* Test Item Value Reference Range Interpretation Comme nts HIV 1/2 4TH GEN, RFLX CONF ( test code = 3514) NON-REACTIVE HIV AB/AG COMBO RFLX [id number] 00:00:00* Test Item Value Reference Range Interpretation Comme nts HIV 1/2 4TH GEN, RFLX CONF ( test code = 3514) NON-REACTIVE HIV AB/AG COMBO RFLX [id number] 00:00:00* Test Item Value Reference Range Interpretation Comme nts HIV 1/2 4TH GEN, RFLX CONF ( test code = 3514) NON-REACTIVE HIV AB/AG COMBO RFLX [id number] 00:00:00* Test Item Value Reference Range Interpretation Comme nts HIV 1/2 4TH GEN, RFLX CONF ( test code = 3514) NON-REACTIVE ALBUMIN/CREATININE RATIO, URINE, [id number] 01:16:34* Test Item Value Reference Range Interpretation Comme nts CREATININE, URINE, RANDOM (test code = 2072) 82.3 MG/DL NOT ESTAB ALBUMIN, URINE, RANDOM (test code = 78754) 10.4 MG/DL NOT ESTAB CALC ALBUMIN/CREAT, RND (test code = 19069) 126 MG/G <30 H Note: Albumin/Creatinine ratio reference interval reflects ADA and NKF guidelines. COMPREHENSIVE METABOLIC [id number] 00:35:57* Test Item Value Reference Range Interpretation Comme nts GLUCOSE (test code = 2217) 56 MG/DL 70-99 L BUN (test code = 2208) 39 MG/DL 6-20 H CREATININE (test code = 2214) 1.46 MG/DL 0.60-1.30 H eGFR (2020 CKD-EPI) (test code = 02402) 42 ML/MIN/1.73 >60 L CALC BUN/CREAT (test code = 2235) 27 RATIO 6-28 SODIUM (test code = 2231) 141 MEQ/L 133-146 POTASSIUM (test code = 2228) 5.1 MEQ/L 3.5-5.4 CHLORIDE (test code = 2215) 103 MEQ/L 95-107 CARBON DIOXIDE (test code = 2206) 22 MEQ/L 19-31 CALCIUM (test code = 2209) 10.2 MG/DL 8.5-10.5 PROTEIN, TOTAL (test code = 222) 8.1 G/DL 6.1-8.3 ALBUMIN (test code = [...] normal/abnormal. ALKALINE PHOSPHATASE (test code = 2204) 186 U/L 40-136 H AST (test code = 2218) 23 U/L 9-40 ALT (test code = 2219) 24 U/L 5-40 LIPID [id number] 00:35:57* Test Item Value Reference Range Interpretation [...] SPECIMENS. FOR MOREINFORMATION, SEE CLIENT ANNOUNCEMENT AT [email or web address] RISK RATIO LDL/HDL (test code = 2238) 1.26 RATIO <3.22 UNLESS OTHERW ISE INDICATED, ALL TESTING PERFORMED [facility] [address] [place] [id number] [employer]ET[employer] ASSISTANT: MARGI OCHOA M.D. CLIA NUMBER [id number] [facility] [place]. [id number] COMPREHENSIVE METABOLIC [id number] 00:00:00* Test Item Value Reference Range Interpretation Comme nts GLUCOSE (test code = 2217) 56 MG/DL BUN (test code = 8) 39 MG/DL CREATININE (test code = 2214) 1.46 MG/DL eGFR (2020 CKD-EPI) (test co de = 29359) 42 ML/MIN/1.73 CALC BUN/CREAT (test code = [...] 2204) 186 U/L AST (test code = 221) 23 U/L ALT (test code = 2219) 24 U/L MICROALBUMIN/CREATININE, RANDOM AND [id number] 00:00:00* Test Item Value Reference Range Interpretation Comme nts CREATININE, URINE, RANDOM (t est code = 207) 82.3 MG/DL ALBUMIN, URINE, RANDOM (test code = 82101) 10.4 MG/DL CALC ALBUMIN/CREAT, RND (liana t code = 52130) 126 MG/G MICROALBUMIN/CREATININE, RANDOM AND [id number] 00:00:00* Test Item Value Reference Range Interpretation Comme nts CREATININE, URINE, RANDOM (t est code = 207) 82.3 MG/DL ALBUMIN, URINE, RANDOM (test code = 83044) 10.4 MG/DL CALC ALBUMIN/CREAT, RND (liana t code = 69700) 126 MG/G LIPID [id number] 00:00:00* Test Item Value Reference Range Interpretation Comme nts CHOLESTEROL (test code = 2210) 251 MG/DL TRIGLYCERIDES (test code = 2232) 79 MG/DL HDL CHOLESTEROL (test code = 2220) 103 MG/DL CALC LDL CHOL (test code = 2237) 130 MG/DL RISK RATIO LDL/HDL (test cod e = 2238) 1.26 RATIO LIPID [id number] 00:00:00* Test Item Value Reference Range Interpretation Comme nts CHOLESTEROL (test code = 2210) 251 MG/DL TRIGLYCERIDES (test code = 2232) 79 MG/DL HDL CHOLESTEROL (test code = 2220) 103 MG/DL CALC LDL CHOL (test code = 2237) 130 MG/DL RISK RATIO LDL/HDL (test cod e = 2238) 1.26 RATIO COMPREHENSIVE METABOLIC [id number] 00:00:00* Test Item Value Reference Range Interpretation Comme nts GLUCOSE (test code = 2217) 56 MG/DL BUN (test code = 2208) 39 MG/DL CREATININE (test code = 2214) 1.46 MG/DL eGFR (2020 CKD-EPI) (test co de = 41360) 42 ML/MIN/1.73 CALC BUN/CREAT (test code = [...] code = 2219) 24 U/L COMPREHENSIVE METABOLIC [id number] 00:00:00* Test Item Value Reference Range Interpretation Comme nts GLUCOSE (test code = 2217) 56 MG/DL BUN (test code = 2208) 39 MG/DL CREATININE (test code = 2214) 1.46 MG/DL eGFR (2020 CKD-EPI) (test co de = 07654) 42 ML/MIN/1.73 CALC BUN/CREAT (test code = [...] = 2219) 24 U/L MICROALBUMIN/CREATININE, RANDOM AND [id number] 00:00:00* Test Item Value Reference Range Interpretation Comme nts CREATININE, URINE, RANDOM (t est code = 2072) 82.3 MG/DL ALBUMIN, URINE, RANDOM (test code = 74681) 10.4 MG/DL CALC ALBUMIN/CREAT, RND (liana t code = 56465) 126 MG/G MICROALBUMIN/CREATININE, RANDOM AND [id number] 00:00:00* Test Item Value Reference Range Interpretation Comme nts CREATININE, URINE, RANDOM (t est code = 207) 82.3 MG/DL ALBUMIN, URINE, RANDOM (test code = 93276) 10.4 MG/DL CALC ALBUMIN/CREAT, RND (liana t code = 60906) 126 MG/G LIPID [id number] 00:00:00* Test Item Value Reference Range Interpretation Comme nts CHOLESTEROL (test code = 2210) 251 MG/DL TRIGLYCERIDES (test code = 2232) 79 MG/DL HDL CHOLESTEROL (test code = 2220) 103 MG/DL CALC LDL CHOL (test code = 2237) 130 MG/DL RISK RATIO LDL/HDL (test cod e = 2238) 1.26 RATIO LIPID [id number] 00:00:00* Test Item Value Reference Range Interpretation Comme nts CHOLESTEROL (test code = 2210) 251 MG/DL TRIGLYCERIDES (test code = 2232) 79 MG/DL HDL CHOLESTEROL (test code = 2220) 103 MG/DL CALC LDL CHOL (test code = 2237) 130 MG/DL RISK RATIO LDL/HDL (test cod e = 2238) 1.26 RATIO COMPREHENSIVE METABOLIC [id number] 00:00:00* Test Item Value Reference Range Interpretation Comme nts GLUCOSE (test code = 2217) 56 MG/DL BUN (test code = 2208) 39 MG/DL CREATININE (test code = 2214) 1.46 MG/DL eGFR (2020 CKD-EPI) (test co de = 02589) 42 ML/MIN/1.73 CALC BUN/CREAT (test code = [...] code = 2219) 24 U/L COMPREHENSIVE METABOLIC [id number] 00:00:00* Test Item Value Reference Range Interpretation Comme nts GLUCOSE (test code = 2217) 56 MG/DL BUN (test code = 2208) 39 MG/DL CREATININE (test code = 2214) 1.46 MG/DL eGFR (2020 CKD-EPI) (test co de = 86715) 42 ML/MIN/1.73 CALC BUN/CREAT (test code = [...] = 2219) 24 U/L MICROALBUMIN/CREATININE, RANDOM AND [id number] 00:00:00* Test Item Value Reference Range Interpretation Comme nts CREATININE, URINE, RANDOM (t est code = 207) 82.3 MG/DL ALBUMIN, URINE, RANDOM (test code = 67102) 10.4 MG/DL CALC ALBUMIN/CREAT, RND (liana t code = 38717) 126 MG/G MICROALBUMIN/CREATININE, RANDOM AND [id number] 00:00:00* Test Item Value Reference Range Interpretation Comme nts CREATININE, URINE, RANDOM (t est code = 2071) 82.3 MG/DL ALBUMIN, URINE, RANDOM (test code = 39476) 10.4 MG/DL CALC ALBUMIN/CREAT, RND (liana t code = 32381) 126 MG/G LIPID [id number] 00:00:00* Test Item Value Reference Range Interpretation Comme nts CHOLESTEROL (test code = 2210) 251 MG/DL TRIGLYCERIDES (test code = 2232) 79 MG/DL HDL CHOLESTEROL (test code = 2220) 103 MG/DL CALC LDL CHOL (test code = 2237) 130 MG/DL RISK RATIO LDL/HDL (test cod e = 2238) 1.26 RATIO LIPID [id number] 00:00:00* Test Item Value Reference Range Interpretation Comme nts CHOLESTEROL (test code = 2210) 251 MG/DL TRIGLYCERIDES (test code = 2232) 79 MG/DL HDL CHOLESTEROL (test code = 2220) 103 MG/DL CALC LDL CHOL (test code = 2237) 130 MG/DL RISK RATIO LDL/HDL (test cod e = 2238) 1.26 RATIO COMPREHENSIVE METABOLIC [id number] 00:00:00* Test Item Value Reference Range Interpretation Comme nts GLUCOSE (test code = 2217) 56 MG/DL BUN (test code = 2208) 39 MG/DL CREATININE (test code = 2214) 1.46 MG/DL eGFR (2020 CKD-EPI) (test co de = 33493) 42 ML/MIN/1.73 CALC BUN/CREAT (test code = [...] code = 2219) 24 U/L COMPREHENSIVE METABOLIC [id number] 00:00:00* Test Item Value Reference Range Interpretation Comme nts GLUCOSE (test code = 2217) 56 MG/DL BUN (test code = 2208) 39 MG/DL CREATININE (test code = 2214) 1.46 MG/DL eGFR (2020 CKD-EPI) (test co de = 71842) 42 ML/MIN/1.73 CALC BUN/CREAT (test code = [...] = 2219) 24 U/L MICROALBUMIN/CREATININE, RANDOM AND [id number] 00:00:00* Test Item Value Reference Range Interpretation Comme nts CREATININE, URINE, RANDOM (t est code = 2) 82.3 MG/DL ALBUMIN, URINE, RANDOM (test code = 74027) 10.4 MG/DL CALC ALBUMIN/CREAT, RND (liana t code = 58206) 126 MG/G MICROALBUMIN/CREATININE, RANDOM AND [id number] 00:00:00* Test Item Value Reference Range Interpretation Comme nts CREATININE, URINE, RANDOM (t est code = 2072) 82.3 MG/DL ALBUMIN, URINE, RANDOM (test code = 79892) 10.4 MG/DL CALC ALBUMIN/CREAT, RND (liana t code = 38041) 126 MG/G LIPID [id number] 00:00:00* Test Item Value Reference Range Interpretation Comme nts CHOLESTEROL (test code = 2210) 251 MG/DL TRIGLYCERIDES (test code = 2232) 79 MG/DL HDL CHOLESTEROL (test code = 2220) 103 MG/DL CALC LDL CHOL (test code = 2237) 130 MG/DL RISK RATIO LDL/HDL (test cod e = 2238) 1.26 RATIO LIPID [id number] 00:00:00* Test Item Value Reference Range Interpretation Comme nts CHOLESTEROL (test code = 2210) 251 MG/DL TRIGLYCERIDES (test code = 2232) 79 MG/DL HDL CHOLESTEROL (test code = 2220) 103 MG/DL CALC LDL CHOL (test code = 2237) 130 MG/DL RISK RATIO LDL/HDL (test cod e = 2238) 1.26 RATIO COMPREHENSIVE METABOLIC [id number] 00:00:00* Test Item Value Reference Range Interpretation Comme nts GLUCOSE (test code = 2217) 56 MG/DL BUN (test code = 2208) 39 MG/DL CREATININE (test code = 2214) 1.46 MG/DL eGFR (2020 CKD-EPI) (test co de = 55510) 42 ML/MIN/1.73 CALC BUN/CREAT (test code = [...] (test code = 2219) 24 U/L HEMOGLOBIN [id number] 03:34:07* Test Item Value Reference Range Interpretation Comme nts HEMOGLOBIN A1c (test code = 20935) 10.0 % 4.2-5.6 H [employer] GUIDELINES FOR HGB A1C: [...] OR LABORATORY CONSULTATION. CBC W/AUTO DIFF WITH [id number] 02:45:06* Test Item Value Reference Range Interpretation [...] 0.00-0.10 ABS NUCLEATED RBCS (test code = 93270) 0.00 K/UL 0.00-0.11 CBC W/AUTO [id number] 00:00:00* Test Item Value Reference Range Interpretation [...] ABS NUCLEATED RBCS (test cod e = 40215) 0.00 K/UL CBC W/AUTO [id number] 00:00:00* Test Item Value Reference Range Interpretation [...] ABS NUCLEATED RBCS (test cod e = 26147) 0.00 K/UL CBC W/AUTO [id number] 00:00:00* Test Item Value Reference Range Interpretation [...] ABS NUCLEATED RBCS (test cod e = 86425) 0.00 K/UL HEMOGLOBIN [id number] 00:00:00* Test Item Value Reference Range Interpretation Comme nts HEMOGLOBIN A1c (test code = 14349) 10.0 % HEMOGLOBIN [id number] 00:00:00* Test Item Value Reference Range Interpretation Comme nts HEMOGLOBIN A1c (test code = 68057) 10.0 % HEMOGLOBIN [id number] 00:00:00* Test Item Value Reference Range Interpretation Comme nts HEMOGLOBIN A1c (test code = 68036) 10.0 % CBC W/AUTO [id number] 00:00:00* Test Item Value Reference Range Interpretation [...] ABS NUCLEATED RBCS (test cod e = 79144) 0.00 K/UL CBC W/AUTO [id number] 00:00:00* Test Item Value Reference Range Interpretation [...] ABS NUCLEATED RBCS (test cod e = 80015) 0.00 K/UL CBC W/AUTO [id number] 00:00:00* Test Item Value Reference Range Interpretation [...] ABS NUCLEATED RBCS (test cod e = 22908) 0.00 K/UL HEMOGLOBIN [id number] 00:00:00* Test Item Value Reference Range Interpretation Comme nts HEMOGLOBIN A1c (test code = 68580) 10.0 % HEMOGLOBIN [id number] 00:00:00* Test Item Value Reference Range Interpretation Comme nts HEMOGLOBIN A1c (test code = 07797) 10.0 % HEMOGLOBIN [id number] 00:00:00* Test Item Value Reference Range Interpretation Comme nts HEMOGLOBIN A1c (test code = 55849) 10.0 % CBC W/AUTO [id number] 00:00:00* Test Item Value Reference Range Interpretation [...] ABS NUCLEATED RBCS (test cod e = 61596) 0.00 K/UL CBC W/AUTO [id number] 00:00:00* Test Item Value Reference Range Interpretation [...] ABS NUCLEATED RBCS (test cod e = 96953) 0.00 K/UL CBC W/AUTO [id number] 00:00:00* Test Item Value Reference Range Interpretation [...] ABS NUCLEATED RBCS (test cod e = 96337) 0.00 K/UL HEMOGLOBIN [id number] 00:00:00* Test Item Value Reference Range Interpretation Comme nts HEMOGLOBIN A1c (test code = 91734) 10.0 % HEMOGLOBIN [id number] 00:00:00* Test Item Value Reference Range Interpretation Comme nts HEMOGLOBIN A1c (test code = 24361) 10.0 % HEMOGLOBIN [id number] 00:00:00* Test Item Value Reference Range Interpretation Comme nts HEMOGLOBIN A1c (test code = 01655) 10.0 % CBC W/AUTO [id number] 00:00:00* Test Item Value Reference Range Interpretation [...] ABS NUCLEATED RBCS (test cod e = 70169) 0.00 K/UL CBC W/AUTO [id number] 00:00:00* Test Item Value Reference Range Interpretation [...] ABS NUCLEATED RBCS (test cod e = 14602) 0.00 K/UL CBC W/AUTO [id number] 00:00:00* Test Item Value Reference Range Interpretation [...] ABS NUCLEATED RBCS (test cod e = 38235) 0.00 K/UL HEMOGLOBIN [id number] 00:00:00* Test Item Value Reference Range Interpretation Comme nts HEMOGLOBIN A1c (test code = 36874) 10.0 % HEMOGLOBIN [id number] 00:00:00* Test Item Value Reference Range Interpretation Comme nts HEMOGLOBIN A1c (test code = 81047) 10.0 % HEMOGLOBIN [id number] 00:00:00* Test Item Value Reference Range Interpretation Comme nts HEMOGLOBIN A1c (test code = 00290) 10.0 % COMPREHENSIVE METABOLIC [id number] 00:00:00* Test Item Value Reference Range Interpretation Comme nts GLUCOSE (test code = 2217) 792 MG/DL BUN (test code = 2208) 59 MG/DL CREATININE (test code = 2214) 1.33 MG/DL eGFR AMER. (test cod e = 38560) 52 ML/MIN/1.73 eGFR NON- AMER. (test code = 31201) 45 ML/MIN/1.73 CALC BUN/CREAT (test code = [...] code = 2219) 36 U/L COMPREHENSIVE METABOLIC [id number] 00:00:00* Test Item Value Reference Range Interpretation Comme nts GLUCOSE (test code = 2217) 792 MG/DL BUN (test code = 2208) 59 MG/DL CREATININE (test code = 2214) 1.33 MG/DL eGFR AMER. (test cod e = 34975) 52 ML/MIN/1.73 eGFR NON- AMER. (test code = 82399) 45 ML/MIN/1.73 CALC BUN/CREAT (test code = [...] code = 2219) 36 U/L COMPREHENSIVE METABOLIC [id number] 00:00:00* Test Item Value Reference Range Interpretation Comme nts GLUCOSE (test code = 2217) 792 MG/DL BUN (test code = 2208) 59 MG/DL CREATININE (test code = 2214) 1.33 MG/DL eGFR AMER. (test cod e = 79022) 52 ML/MIN/1.73 eGFR NON- AMER. (test code = 83792) 45 ML/MIN/1.73 CALC BUN/CREAT (test code = [...] code = 2219) 36 U/L COMPREHENSIVE METABOLIC [id number] 00:00:00* Test Item Value Reference Range Interpretation Comme nts GLUCOSE (test code = 2217) 792 MG/DL BUN (test code = 2208) 59 MG/DL CREATININE (test code = 2214) 1.33 MG/DL eGFR AMER. (test cod e = 69197) 52 ML/MIN/1.73 eGFR NON- AMER. (test code = 44461) 45 ML/MIN/1.73 CALC BUN/CREAT (test code = [...] code = 2219) 36 U/L COMPREHENSIVE METABOLIC [id number] 00:00:00* Test Item Value Reference Range Interpretation Comme nts GLUCOSE (test code = 2217) 792 MG/DL BUN (test code = 2208) 59 MG/DL CREATININE (test code = 2214) 1.33 MG/DL eGFR AMER. (test cod e = 71155) 52 ML/MIN/1.73 eGFR NON- AMER. (test code = 09832) 45 ML/MIN/1.73 CALC BUN/CREAT (test code = [...] code = 2219) 36 U/L COMPREHENSIVE METABOLIC [id number] 00:00:00* Test Item Value Reference Range Interpretation Comme nts GLUCOSE (test code = 2217) 792 MG/DL BUN (test code = 2208) 59 MG/DL CREATININE (test code = 2214) 1.33 MG/DL eGFR AMER. (test cod e = 00985) 52 ML/MIN/1.73 eGFR NON- AMER. (test code = 15458) 45 ML/MIN/1.73 CALC BUN/CREAT (test code = [...] code = 2219) 36 U/L COMPREHENSIVE METABOLIC [id number] 00:00:00* Test Item Value Reference Range Interpretation Comme nts GLUCOSE (test code = 2217) 792 MG/DL BUN (test code = 2208) 59 MG/DL CREATININE (test code = 2214) 1.33 MG/DL eGFR AMER. (test cod e = 60456) 52 ML/MIN/1.73 eGFR NON- AMER. (test code = 79226) 45 ML/MIN/1.73 CALC BUN/CREAT (test code = [...] code = 2219) 36 U/L COMPREHENSIVE METABOLIC [id number] 00:00:00* Test Item Value Reference Range Interpretation Comme nts GLUCOSE (test code = 2217) 792 MG/DL BUN (test code = 2208) 59 MG/DL CREATININE (test code = 2214) 1.33 MG/DL eGFR AMER. (test cod e = 73354) 52 ML/MIN/1.73 eGFR NON- AMER. (test code = 66103) 45 ML/MIN/1.73 CALC BUN/CREAT (test code = 2235) 44 RATIO SODIUM (test code = 2231) 129 MEQ/L POTASSIUM (test code = 2228) 6.7 MEQ/L CHLORIDE (test code = 2215) 95 MEQ/L CARBON DIOXIDE (test code = 2206) 23 MEQ/L CALCIUM (test code = 2209) 10.5 MG/DL PROTEIN, TOTAL (test code = 222) 7.1 G/DL ALBUMIN (test code = 220) 4.0 G/DL [...] NOTE: (test code = 998) (NOTE) MICROALBUMIN, [id number] 00:00:00* Test Item Value Reference Range Interpretation Comme nts ALBUMIN, URINE, RANDOM (test code = 81400) 6.4 MG/DL MICROALBUMIN, [id number] 00:00:00* Test Item Value Reference Range Interpretation Comme nts ALBUMIN, URINE, RANDOM (test code = 66400) 6.4 MG/DL MICROALBUMIN, [id number] 00:00:00* Test Item Value Reference Range Interpretation Comme nts ALBUMIN, URINE, RANDOM (test code = 05221) 6.4 MG/DL MICROALBUMIN, [id number] 00:00:00* Test Item Value Reference Range Interpretation Comme nts ALBUMIN, URINE, RANDOM (test code = 02002) 6.4 MG/DL MICROALBUMIN, [id number] 00:00:00* Test Item Value Reference Range Interpretation Comme nts ALBUMIN, URINE, RANDOM (test code = 31323) 6.4 MG/DL MICROALBUMIN, [id number] 00:00:00* Test Item Value Reference Range Interpretation Comme nts ALBUMIN, URINE, RANDOM (test code = 71146) 6.4 MG/DL MICROALBUMIN, [id number] 00:00:00* Test Item Value Reference Range Interpretation Comme nts ALBUMIN, URINE, RANDOM (test code = 99086) 6.4 MG/DL MICROALBUMIN, [id number] 00:00:00* Test Item Value Reference Range Interpretation Comme nts ALBUMIN, URINE, RANDOM (test code = 98609) 6.4 MG/DL COMPREHENSIVE METABOLIC [id number] 00:00:00* Test Item Value Reference Range Interpretation Comme nts GLUCOSE (test code = 2217) 207 MG/DL BUN (test code = 2208) 45 MG/DL CREATININE (test code = 2214) 1.06 MG/DL eGFR AMER. (test cod e = 23661) 68 ML/MIN/1.73 eGFR NON- AMER. (test code = 52239) 59 ML/MIN/1.73 CALC BUN/CREAT (test code = [...] code = 2219) 35 U/L COMPREHENSIVE METABOLIC [id number] 00:00:00* Test Item Value Reference Range Interpretation Comme nts GLUCOSE (test code = 2217) 207 MG/DL BUN (test code = 2208) 45 MG/DL CREATININE (test code = 2214) 1.06 MG/DL eGFR AMER. (test cod e = 06699) 68 ML/MIN/1.73 eGFR NON- AMER. (test code = 40897) 59 ML/MIN/1.73 CALC BUN/CREAT (test code = 2235) 42 RATIO SODIUM (test code = 2231) 141 MEQ/L POTASSIUM (test code = 2228) 4.5 MEQ/L CHLORIDE (test code = 2215) 101 MEQ/L CARBON DIOXIDE (test code = 2206) 28 MEQ/L CALCIUM (test code = 2209) 10.2 MG/DL PROTEIN, TOTAL (test code = 222) 7.1 G/DL ALBUMIN (test code = 2201) 4.3 G/DL CALC GLOBULIN (test code = 2240) 2.8 G/DL CALC A/G RATIO (test code = 2234) 1.5 RATIO BILIRUBIN, TOTAL (test code = 220) <0.2 MG/DL ALKALINE PHOSPHATASE (test code = 2204) 124 U/L AST (test code = 2218) 34 U/L ALT (test code = 2219) 35 U/L LIPID [id number] 00:00:00* Test Item Value Reference Range Interpretation Comme nts CHOLESTEROL (test code = 2210) 194 MG/DL TRIGLYCERIDES (test code = 2232) 80 MG/DL HDL CHOLESTEROL (test code = 2220) 75 MG/DL CALC LDL CHOL (test code = 2237) 102 MG/DL RISK RATIO LDL/HDL (test cod e = 2238) 1.36 RATIO LIPID [id number] 00:00:00* Test Item Value Reference Range Interpretation Comme nts CHOLESTEROL (test code = 2210) 194 MG/DL TRIGLYCERIDES (test code = 2232) 80 MG/DL HDL CHOLESTEROL (test code = 2220) 75 MG/DL CALC LDL CHOL (test code = 2237) 102 MG/DL RISK RATIO LDL/HDL (test cod e = 2238) 1.36 RATIO COMPREHENSIVE METABOLIC [id number] 00:00:00* Test Item Value Reference Range Interpretation Comme nts GLUCOSE (test code = 2217) 207 MG/DL BUN (test code = 2208) 45 MG/DL CREATININE (test code = 2214) 1.06 MG/DL eGFR AMER. (test cod e = 76471) 68 ML/MIN/1.73 eGFR NON- AMER. (test code = 28190) 59 ML/MIN/1.73 CALC BUN/CREAT (test code = [...] code = 2219) 35 U/L COMPREHENSIVE METABOLIC [id number] 00:00:00* Test Item Value Reference Range Interpretation Comme nts GLUCOSE (test code = 2217) 207 MG/DL BUN (test code = 2208) 45 MG/DL CREATININE (test code = 2214) 1.06 MG/DL eGFR AMER. (test cod e = 82546) 68 ML/MIN/1.73 eGFR NON- AMER. (test code = 04033) 59 ML/MIN/1.73 CALC BUN/CREAT (test code = [...] (test code = 2219) 35 U/L LIPID [id number] 00:00:00* Test Item Value Reference Range Interpretation Comme nts CHOLESTEROL (test code = 2210) 194 MG/DL TRIGLYCERIDES (test code = 2232) 80 MG/DL HDL CHOLESTEROL (test code = 2220) 75 MG/DL CALC LDL CHOL (test code = 2237) 102 MG/DL RISK RATIO LDL/HDL (test cod e = 2238) 1.36 RATIO LIPID [id number] 00:00:00* Test Item Value Reference Range Interpretation Comme nts CHOLESTEROL (test code = 2210) 194 MG/DL TRIGLYCERIDES (test code = 2232) 80 MG/DL HDL CHOLESTEROL (test code = 2220) 75 MG/DL CALC LDL CHOL (test code = 2237) 102 MG/DL RISK RATIO LDL/HDL (test cod e = 2238) 1.36 RATIO COMPREHENSIVE METABOLIC [id number] 00:00:00* Test Item Value Reference Range Interpretation Comme nts GLUCOSE (test code = 2217) 207 MG/DL BUN (test code = 2208) 45 MG/DL CREATININE (test code = 2214) 1.06 MG/DL eGFR AMER. (test cod e = 68898) 68 ML/MIN/1.73 eGFR NON- AMER. (test code = 26221) 59 ML/MIN/1.73 CALC BUN/CREAT (test code = [...] code = 2219) 35 U/L COMPREHENSIVE METABOLIC [id number] 00:00:00* Test Item Value Reference Range Interpretation Comme nts GLUCOSE (test code = 2217) 207 MG/DL BUN (test code = 2208) 45 MG/DL CREATININE (test code = 2214) 1.06 MG/DL eGFR AMER. (test cod e = 03329) 68 ML/MIN/1.73 eGFR NON- AMER. (test code = 21380) 59 ML/MIN/1.73 CALC BUN/CREAT (test code = [...] (test code = 2219) 35 U/L LIPID [id number] 00:00:00* Test Item Value Reference Range Interpretation Comme nts CHOLESTEROL (test code = 2210) 194 MG/DL TRIGLYCERIDES (test code = 2232) 80 MG/DL HDL CHOLESTEROL (test code = 2220) 75 MG/DL CALC LDL CHOL (test code = 2237) 102 MG/DL RISK RATIO LDL/HDL (test cod e = 2238) 1.36 RATIO LIPID [id number] 00:00:00* Test Item Value Reference Range Interpretation Comme nts CHOLESTEROL (test code = 2210) 194 MG/DL TRIGLYCERIDES (test code = 2232) 80 MG/DL HDL CHOLESTEROL (test code = 2220) 75 MG/DL CALC LDL CHOL (test code = 2237) 102 MG/DL RISK RATIO LDL/HDL (test cod e = 2238) 1.36 RATIO COMPREHENSIVE METABOLIC [id number] 00:00:00* Test Item Value Reference Range Interpretation Comme nts GLUCOSE (test code = 2217) 207 MG/DL BUN (test code = 2208) 45 MG/DL CREATININE (test code = 2214) 1.06 MG/DL eGFR AMER. (test cod e = 04931) 68 ML/MIN/1.73 eGFR NON- AMER. (test code = 71849) 59 ML/MIN/1.73 CALC BUN/CREAT (test code = [...] code = 2219) 35 U/L COMPREHENSIVE METABOLIC [id number] 00:00:00* Test Item Value Reference Range Interpretation Comme nts GLUCOSE (test code = 2217) 207 MG/DL BUN (test code = 2208) 45 MG/DL CREATININE (test code = 2214) 1.06 MG/DL eGFR AMER. (test cod e = 05970) 68 ML/MIN/1.73 eGFR NON- AMER. (test code = 57927) 59 ML/MIN/1.73 CALC BUN/CREAT (test code = [...] (test code = 2219) 35 U/L LIPID [id number] 00:00:00* Test Item Value Reference Range Interpretation Comme nts CHOLESTEROL (test code = 2210) 194 MG/DL TRIGLYCERIDES (test code = 2232) 80 MG/DL HDL CHOLESTEROL (test code = 2220) 75 MG/DL CALC LDL CHOL (test code = 2237) 102 MG/DL RISK RATIO LDL/HDL (test cod e = 2238) 1.36 RATIO LIPID [id number] 00:00:00* Test Item Value Reference Range Interpretation Comme nts CHOLESTEROL (test code = 2210) 194 MG/DL TRIGLYCERIDES (test code = 2232) 80 MG/DL HDL CHOLESTEROL (test code = 2220) 75 MG/DL CALC LDL CHOL (test code = 2237) 102 MG/DL RISK RATIO LDL/HDL (test cod e = 2238) 1.36 RATIO HEMOGLOBIN [id number] 00:00:00* Test Item Value Reference Range Interpretation Comme nts HEMOGLOBIN A1c (test code = 43367) 15.4 % CBC W/AUTO [id number] 00:00:00* Test Item Value Reference Range Interpretation [...] code = 1015) 314 K/UL CBC W/AUTO [id number] 00:00:00* Test Item Value Reference Range Interpretation [...] code = 1015) 314 K/UL CBC W/AUTO [id number] 00:00:00* Test Item Value Reference Range Interpretation [...] (test code = 1015) 314 K/UL HEMOGLOBIN [id number] 00:00:00* Test Item Value Reference Range Interpretation Comme nts HEMOGLOBIN A1c (test code = 92728) 15.4 % HEMOGLOBIN [id number] 00:00:00* Test Item Value Reference Range Interpretation Comme nts HEMOGLOBIN A1c (test code = 91354) 15.4 % HEMOGLOBIN [id number] 00:00:00* Test Item Value Reference Range Interpretation Comme nts HEMOGLOBIN A1c (test code = 45538) 15.4 % CBC W/AUTO [id number] 00:00:00* Test Item Value Reference Range Interpretation [...] code = 1015) 314 K/UL CBC W/AUTO [id number] 00:00:00* Test Item Value Reference Range Interpretation [...] code = 1015) 314 K/UL CBC W/AUTO [id number] 00:00:00* Test Item Value Reference Range Interpretation [...] (test code = 1015) 314 K/UL HEMOGLOBIN [id number] 00:00:00* Test Item Value Reference Range Interpretation Comme nts HEMOGLOBIN A1c (test code = 64766) 15.4 % HEMOGLOBIN [id number] 00:00:00* Test Item Value Reference Range Interpretation Comme nts HEMOGLOBIN A1c (test code = 78978) 15.4 % HEMOGLOBIN [id number] 00:00:00* Test Item Value Reference Range Interpretation Comme nts HEMOGLOBIN A1c (test code = 36750) 15.4 % CBC W/AUTO [id number] 00:00:00* Test Item Value Reference Range Interpretation [...] code = 1015) 314 K/UL CBC W/AUTO [id number] 00:00:00* Test Item Value Reference Range Interpretation [...] code = 1015) 314 K/UL CBC W/AUTO [id number] 00:00:00* Test Item Value Reference Range Interpretation [...] (test code = 1015) 314 K/UL HEMOGLOBIN [id number] 00:00:00* Test Item Value Reference Range Interpretation Comme nts HEMOGLOBIN A1c (test code = 08838) 15.4 % HEMOGLOBIN [id number] 00:00:00* Test Item Value Reference Range Interpretation Comme nts HEMOGLOBIN A1c (test code = 47446) 15.4 % HEMOGLOBIN [id number] 00:00:00* Test Item Value Reference Range Interpretation Comme nts HEMOGLOBIN A1c (test code = 18558) 15.4 % CBC W/AUTO [id number] 00:00:00* Test Item Value Reference Range Interpretation [...] code = 1015) 314 K/UL CBC W/AUTO [id number] 00:00:00* Test Item Value Reference Range Interpretation [...] code = 1015) 314 K/UL CBC W/AUTO [id number] 00:00:00* Test Item Value Reference Range Interpretation [...] (test code = 1015) 314 K/UL HEMOGLOBIN [id number] 00:00:00* Test Item Value Reference Range Interpretation Comme nts HEMOGLOBIN A1c (test code = 56679) 15.4 % HEMOGLOBIN [id number] 00:00:00* Test Item Value Reference Range Interpretation Comme nts HEMOGLOBIN A1c (test code = 35044) 15.4 % SARS-CoV-2 (COVID-19) by RT-PCR (HIGH RISK)2020-12-01 00:00:00* Test Item Value Reference Range Interpretation Comme nts SARS-CoV-2 INTERPRETATION (t est code = 40331) NEGATIVE SOURCE (test code = 45306) NOT SPECIFIED SARS-CoV-2 (COVID-19) by RT-PCR (HIGH RISK)2020-12-01 00:00:00* Test Item Value Reference Range Interpretation Comme nts SARS-CoV-2 INTERPRETATION (t est code = 12814) NEGATIVE SOURCE (test code = 93645) NOT SPECIFIED SARS-CoV-2 (COVID-19) by RT-PCR (HIGH RISK)2020-12-01 00:00:00* Test Item Value Reference Range Interpretation Comme nts SARS-CoV-2 INTERPRETATION (t est code = 67888) NEGATIVE SOURCE (test code = 78597) NOT SPECIFIED SARS-CoV-2 (COVID-19) by RT-PCR (HIGH RISK)2020-12-01 00:00:00* Test Item Value Reference Range Interpretation Comme nts SARS-CoV-2 INTERPRETATION (t est code = 06881) NEGATIVE SOURCE (test code = 70047) NOT SPECIFIED SARS-CoV-2 (COVID-19) by RT-PCR (HIGH RISK)2020-12-01 00:00:00* Test Item Value Reference Range Interpretation Comme nts SARS-CoV-2 INTERPRETATION (t est code = 77102) NEGATIVE SOURCE (test code = 63050) NOT SPECIFIED SARS-CoV-2 (COVID-19) by RT-PCR (HIGH RISK)2020-12-01 00:00:00* Test Item Value Reference Range Interpretation Comme nts SARS-CoV-2 INTERPRETATION (t est code = 70184) NEGATIVE SOURCE (test code = 33787) NOT SPECIFIED SARS-CoV-2 (COVID-19) by RT-PCR (HIGH RISK)2020-12-01 00:00:00* Test Item Value Reference Range Interpretation Comme nts SARS-CoV-2 INTERPRETATION (t est code = 11774) NEGATIVE SOURCE (test code = 25348) NOT SPECIFIED SARS-CoV-2 (COVID-19) by RT-PCR (HIGH RISK)2020-12-01 00:00:00* Test Item Value Reference Range Interpretation Comme nts SARS-CoV-2 INTERPRETATION (t est code = 19505) NEGATIVE SOURCE (test code = 32924) NOT SPECIFIED LIPID [id number] 00:00:00* Test Item Value Reference Range Interpretation Comme nts CHOLESTEROL (test code = 2210) 187 MG/DL TRIGLYCERIDES (test code = 2232) 105 MG/DL HDL CHOLESTEROL (test code = 2220) 69 MG/DL CALC LDL CHOL (test code = 2237) 98 MG/DL RISK RATIO LDL/HDL (test cod e = 2238) 1.42 RATIO LIPID [id number] 00:00:00* Test Item Value Reference Range Interpretation Comme nts CHOLESTEROL (test code = 2210) 187 MG/DL TRIGLYCERIDES (test code = 2232) 105 MG/DL HDL CHOLESTEROL (test code = 2220) 69 MG/DL CALC LDL CHOL (test code = 2237) 98 MG/DL RISK RATIO LDL/HDL (test cod e = 2238) 1.42 RATIO COMPREHENSIVE METABOLIC [id number] 00:00:00* Test Item Value Reference Range Interpretation Comme nts GLUCOSE (test code = 2217) 195 MG/DL BUN (test code = 2208) 25 MG/DL CREATININE (test code = 2214) 1.02 MG/DL eGFR AMER. (test cod e = 21874) 72 ML/MIN/1.73 eGFR NON- AMER. (test code = 33009) 62 ML/MIN/1.73 CALC BUN/CREAT (test code = [...] code = 2219) 46 U/L COMPREHENSIVE METABOLIC [id number] 00:00:00* Test Item Value Reference Range Interpretation Comme nts GLUCOSE (test code = 2217) 195 MG/DL BUN (test code = 2208) 25 MG/DL CREATININE (test code = 2214) 1.02 MG/DL eGFR AMER. (test cod e = 74811) 72 ML/MIN/1.73 eGFR NON- AMER. (test code = 90805) 62 ML/MIN/1.73 CALC BUN/CREAT (test code = [...] (test code = 2219) 46 U/L LIPID [id number] 00:00:00* Test Item Value Reference Range Interpretation Comme nts CHOLESTEROL (test code = 2210) 187 MG/DL TRIGLYCERIDES (test code = 2232) 105 MG/DL HDL CHOLESTEROL (test code = 2220) 69 MG/DL CALC LDL CHOL (test code = 2237) 98 MG/DL RISK RATIO LDL/HDL (test cod e = 2238) 1.42 RATIO LIPID [id number] 00:00:00* Test Item Value Reference Range Interpretation Comme nts CHOLESTEROL (test code = 2210) 187 MG/DL TRIGLYCERIDES (test code = 2232) 105 MG/DL HDL CHOLESTEROL (test code = 2220) 69 MG/DL CALC LDL CHOL (test code = 2237) 98 MG/DL RISK RATIO LDL/HDL (test cod e = 2238) 1.42 RATIO COMPREHENSIVE METABOLIC [id number] 00:00:00* Test Item Value Reference Range Interpretation Comme nts GLUCOSE (test code = 2217) 195 MG/DL BUN (test code = 2208) 25 MG/DL CREATININE (test code = 2214) 1.02 MG/DL eGFR AMER. (test cod e = 95188) 72 ML/MIN/1.73 eGFR NON- AMER. (test code = 50644) 62 ML/MIN/1.73 CALC BUN/CREAT (test code = [...] code = 2219) 46 U/L COMPREHENSIVE METABOLIC [id number] 00:00:00* Test Item Value Reference Range Interpretation Comme nts GLUCOSE (test code = 2217) 195 MG/DL BUN (test code = 2208) 25 MG/DL CREATININE (test code = 2214) 1.02 MG/DL eGFR AMER. (test cod e = 18115) 72 ML/MIN/1.73 eGFR NON- AMER. (test code = 06085) 62 ML/MIN/1.73 CALC BUN/CREAT (test code = [...] (test code = 2219) 46 U/L LIPID [id number] 00:00:00* Test Item Value Reference Range Interpretation Comme nts CHOLESTEROL (test code = 2210) 187 MG/DL TRIGLYCERIDES (test code = 2232) 105 MG/DL HDL CHOLESTEROL (test code = 2220) 69 MG/DL CALC LDL CHOL (test code = 2237) 98 MG/DL RISK RATIO LDL/HDL (test cod e = 2238) 1.42 RATIO LIPID [id number] 00:00:00* Test Item Value Reference Range Interpretation Comme nts CHOLESTEROL (test code = 2210) 187 MG/DL TRIGLYCERIDES (test code = 2232) 105 MG/DL HDL CHOLESTEROL (test code = 2220) 69 MG/DL CALC LDL CHOL (test code = 2237) 98 MG/DL RISK RATIO LDL/HDL (test cod e = 2238) 1.42 RATIO COMPREHENSIVE METABOLIC [id number] 00:00:00* Test Item Value Reference Range Interpretation Comme nts GLUCOSE (test code = 2217) 195 MG/DL BUN (test code = 2208) 25 MG/DL CREATININE (test code = 2214) 1.02 MG/DL eGFR AMER. (test cod e = 10033) 72 ML/MIN/1.73 eGFR NON- AMER. (test code = 44789) 62 ML/MIN/1.73 CALC BUN/CREAT (test code = [...] code = 2219) 46 U/L COMPREHENSIVE METABOLIC [id number] 00:00:00* Test Item Value Reference Range Interpretation Comme nts GLUCOSE (test code = 2217) 195 MG/DL BUN (test code = 2208) 25 MG/DL CREATININE (test code = 2214) 1.02 MG/DL eGFR AMER. (test cod e = 42175) 72 ML/MIN/1.73 eGFR NON- AMER. (test code = 75629) 62 ML/MIN/1.73 CALC BUN/CREAT (test code = [...] (test code = 2219) 46 U/L LIPID [id number] 00:00:00* Test Item Value Reference Range Interpretation Comme nts CHOLESTEROL (test code = 2210) 187 MG/DL TRIGLYCERIDES (test code = 2232) 105 MG/DL HDL CHOLESTEROL (test code = 2220) 69 MG/DL CALC LDL CHOL (test code = 2237) 98 MG/DL RISK RATIO LDL/HDL (test cod e = 2238) 1.42 RATIO LIPID [id number] 00:00:00* Test Item Value Reference Range Interpretation Comme nts CHOLESTEROL (test code = 2210) 187 MG/DL TRIGLYCERIDES (test code = 2232) 105 MG/DL HDL CHOLESTEROL (test code = 2220) 69 MG/DL CALC LDL CHOL (test code = 2237) 98 MG/DL RISK RATIO LDL/HDL (test cod e = 2238) 1.42 RATIO COMPREHENSIVE METABOLIC [id number] 00:00:00* Test Item Value Reference Range Interpretation Comme nts GLUCOSE (test code = 2217) 195 MG/DL BUN (test code = 2208) 25 MG/DL CREATININE (test code = 2214) 1.02 MG/DL eGFR AMER. (test cod e = 36599) 72 ML/MIN/1.73 eGFR NON- AMER. (test code = 25226) 62 ML/MIN/1.73 CALC BUN/CREAT (test code = [...] code = 2219) 46 U/L COMPREHENSIVE METABOLIC [id number] 00:00:00* Test Item Value Reference Range Interpretation Comme nts GLUCOSE (test code = 2217) 195 MG/DL BUN (test code = 2208) 25 MG/DL CREATININE (test code = 2214) 1.02 MG/DL eGFR AMER. (test cod e = 88388) 72 ML/MIN/1.73 eGFR NON- AMER. (test code = 74364) 62 ML/MIN/1.73 CALC BUN/CREAT (test code = [...] (test code = 2219) 46 U/L HEMOGLOBIN [id number] 00:00:00* Test Item Value Reference Range Interpretation Comme nts HEMOGLOBIN A1c (test code = 12658) 14.3 % HEMOGLOBIN [id number] 00:00:00* Test Item Value Reference Range Interpretation Comme nts HEMOGLOBIN A1c (test code = 56037) 14.3 % HEMOGLOBIN [id number] 00:00:00* Test Item Value Reference Range Interpretation Comme nts HEMOGLOBIN A1c (test code = 79798) 14.3 % HEMOGLOBIN [id number] 00:00:00* Test Item Value Reference Range Interpretation Comme nts HEMOGLOBIN A1c (test code = 96363) 14.3 % HEMOGLOBIN [id number] 00:00:00* Test Item Value Reference Range Interpretation Comme nts HEMOGLOBIN A1c (test code = 51019) 14.3 % HEMOGLOBIN [id number] 00:00:00* Test Item Value Reference Range Interpretation Comme nts HEMOGLOBIN A1c (test code = 85434) 14.3 % HEMOGLOBIN [id number] 00:00:00* Test Item Value Reference Range Interpretation Comme nts HEMOGLOBIN A1c (test code = 71810) 14.3 % HEMOGLOBIN [id number] 00:00:00* Test Item Value Reference Range Interpretation Comme nts HEMOGLOBIN A1c (test code = 17641) 14.3 % HEMOGLOBIN [id number] 00:00:00* Test Item Value Reference Range Interpretation Comme nts HEMOGLOBIN A1c (test code = 08488) 14.3 % HEMOGLOBIN [id number] 00:00:00* Test Item Value Reference Range Interpretation Comme nts HEMOGLOBIN A1c (test code = 21085) 14.3 % HEMOGLOBIN [id number] 00:00:00* Test Item Value Reference Range Interpretation Comme nts HEMOGLOBIN A1c (test code = 07136) 14.3 % HEMOGLOBIN [id number] 00:00:00* Test Item Value Reference Range Interpretation Comme nts HEMOGLOBIN A1c (test code = 73444) 14.3 % HEMOGLOBIN [id number] 00:00:00* Test Item Value Reference Range Interpretation Comme nts HEMOGLOBIN A1c (test code = 01909) 10.7 % HEMOGLOBIN [id number] 00:00:00* Test Item Value Reference Range Interpretation Comme nts HEMOGLOBIN A1c (test code = 64034) 10.7 % HEMOGLOBIN [id number] 00:00:00* Test Item Value Reference Range Interpretation Comme nts HEMOGLOBIN A1c (test code = 99926) 10.7 % HEMOGLOBIN [id number] 00:00:00* Test Item Value Reference Range Interpretation Comme nts HEMOGLOBIN A1c (test code = 20197) 10.7 % HEMOGLOBIN [id number] 00:00:00* Test Item Value Reference Range Interpretation Comme nts HEMOGLOBIN A1c (test code = 66208) 10.7 % HEMOGLOBIN [id number] 00:00:00* Test Item Value Reference Range Interpretation Comme nts HEMOGLOBIN A1c (test code = 68989) 10.7 % HEMOGLOBIN [id number] 00:00:00* Test Item Value Reference Range Interpretation Comme nts HEMOGLOBIN A1c (test code = 00608) 10.7 % HEMOGLOBIN [id number] 00:00:00* Test Item Value Reference Range Interpretation Comme nts HEMOGLOBIN A1c (test code = 05339) 10.7 % HEMOGLOBIN [id number] 00:00:00* Test Item Value Reference Range Interpretation Comme nts HEMOGLOBIN A1c (test code = 77429) 10.7 % HEMOGLOBIN [id number] 00:00:00* Test Item Value Reference Range Interpretation Comme nts HEMOGLOBIN A1c (test code = 46728) 10.7 % HEMOGLOBIN [id number] 00:00:00* Test Item Value Reference Range Interpretation Comme nts HEMOGLOBIN A1c (test code = 37499) 10.7 % HEMOGLOBIN [id number] 00:00:00* Test Item Value Reference Range Interpretation Comme nts HEMOGLOBIN A1c (test code = 35119) 10.7 % COMPREHENSIVE METABOLIC [id number] 00:00:00* Test Item Value Reference Range Interpretation Comme nts GLUCOSE (test code = 2217) 398 MG/DL BUN (test code = 2208) 39 MG/DL CREATININE (test code = 2214) 0.88 MG/DL eGFR AMER. (test cod e = 05172) 88 ML/MIN/1.73 eGFR NON- AMER. (test code = 87285) 76 ML/MIN/1.73 CALC BUN/CREAT (test code = [...] code = 2219) 13 U/L COMPREHENSIVE METABOLIC [id number] 00:00:00* Test Item Value Reference Range Interpretation Comme nts GLUCOSE (test code = 2217) 398 MG/DL BUN (test code = 2208) 39 MG/DL CREATININE (test code = 2214) 0.88 MG/DL eGFR AMER. (test cod e = 55715) 88 ML/MIN/1.73 eGFR NON- AMER. (test code = 29851) 76 ML/MIN/1.73 CALC BUN/CREAT (test code = [...] (test code = 2219) 13 U/L LIPID [id number] 00:00:00* Test Item Value Reference Range Interpretation Comme nts CHOLESTEROL (test code = 2210) 255 MG/DL TRIGLYCERIDES (test code = 2232) 144 MG/DL HDL CHOLESTEROL (test code = 2220) 62 MG/DL CALC LDL CHOL (test code = 2237) 164 MG/DL RISK RATIO LDL/HDL (test cod e = 2238) 2.65 RATIO LIPID [id number] 00:00:00* Test Item Value Reference Range Interpretation Comme nts CHOLESTEROL (test code = 2210) 255 MG/DL TRIGLYCERIDES (test code = 2232) 144 MG/DL HDL CHOLESTEROL (test code = 2220) 62 MG/DL CALC LDL CHOL (test code = 2237) 164 MG/DL RISK RATIO LDL/HDL (test cod e = 2238) 2.65 RATIO HEMOGLOBIN [id number] 00:00:00* Test Item Value Reference Range Interpretation Comme nts HEMOGLOBIN A1c (test code = 51648) 12.9 % HEMOGLOBIN [id number] 00:00:00* Test Item Value Reference Range Interpretation Comme nts HEMOGLOBIN A1c (test code = 79277) 12.9 % HEMOGLOBIN [id number] 00:00:00* Test Item Value Reference Range Interpretation Comme nts HEMOGLOBIN A1c (test code = 93990) 12.9 % COMPREHENSIVE METABOLIC [id number] 00:00:00* Test Item Value Reference Range Interpretation Comme nts GLUCOSE (test code = 2217) 398 MG/DL BUN (test code = 2208) 39 MG/DL CREATININE (test code = 2214) 0.88 MG/DL eGFR AMER. (test cod e = 68030) 88 ML/MIN/1.73 eGFR NON- AMER. (test code = 51166) 76 ML/MIN/1.73 CALC BUN/CREAT (test code = [...] code = 2219) 13 U/L COMPREHENSIVE METABOLIC [id number] 00:00:00* Test Item Value Reference Range Interpretation Comme nts GLUCOSE (test code = 2217) 398 MG/DL BUN (test code = 2208) 39 MG/DL CREATININE (test code = 2214) 0.88 MG/DL eGFR AMER. (test cod e = 74801) 88 ML/MIN/1.73 eGFR NON- AMER. (test code = 57554) 76 ML/MIN/1.73 CALC BUN/CREAT (test code = [...] (test code = 2219) 13 U/L LIPID [id number] 00:00:00* Test Item Value Reference Range Interpretation Comme nts CHOLESTEROL (test code = 2210) 255 MG/DL TRIGLYCERIDES (test code = 2232) 144 MG/DL HDL CHOLESTEROL (test code = 2220) 62 MG/DL CALC LDL CHOL (test code = 2237) 164 MG/DL RISK RATIO LDL/HDL (test cod e = 2238) 2.65 RATIO LIPID [id number] 00:00:00* Test Item Value Reference Range Interpretation Comme nts CHOLESTEROL (test code = 2210) 255 MG/DL TRIGLYCERIDES (test code = 2232) 144 MG/DL HDL CHOLESTEROL (test code = 2220) 62 MG/DL CALC LDL CHOL (test code = 2237) 164 MG/DL RISK RATIO LDL/HDL (test cod e = 2238) 2.65 RATIO HEMOGLOBIN [id number] 00:00:00* Test Item Value Reference Range Interpretation Comme nts HEMOGLOBIN A1c (test code = 73096) 12.9 % HEMOGLOBIN [id number] 00:00:00* Test Item Value Reference Range Interpretation Comme nts HEMOGLOBIN A1c (test code = 88271) 12.9 % HEMOGLOBIN [id number] 00:00:00* Test Item Value Reference Range Interpretation Comme nts HEMOGLOBIN A1c (test code = 50905) 12.9 % COMPREHENSIVE METABOLIC [id number] 00:00:00* Test Item Value Reference Range Interpretation Comme nts GLUCOSE (test code = 2217) 398 MG/DL BUN (test code = 2208) 39 MG/DL CREATININE (test code = 2214) 0.88 MG/DL eGFR AMER. (test cod e = 42990) 88 ML/MIN/1.73 eGFR NON- AMER. (test code = 48459) 76 ML/MIN/1.73 CALC BUN/CREAT (test code = [...] code = 2219) 13 U/L COMPREHENSIVE METABOLIC [id number] 00:00:00* Test Item Value Reference Range Interpretation Comme nts GLUCOSE (test code = 2217) 398 MG/DL BUN (test code = 2208) 39 MG/DL CREATININE (test code = 2214) 0.88 MG/DL eGFR AMER. (test cod e = 19106) 88 ML/MIN/1.73 eGFR NON- AMER. (test code = 93657) 76 ML/MIN/1.73 CALC BUN/CREAT (test code = [...] (test code = 2219) 13 U/L LIPID [id number] 00:00:00* Test Item Value Reference Range Interpretation Comme nts CHOLESTEROL (test code = 2210) 255 MG/DL TRIGLYCERIDES (test code = 2232) 144 MG/DL HDL CHOLESTEROL (test code = 2220) 62 MG/DL CALC LDL CHOL (test code = 2237) 164 MG/DL RISK RATIO LDL/HDL (test cod e = 2238) 2.65 RATIO LIPID [id number] 00:00:00* Test Item Value Reference Range Interpretation Comme nts CHOLESTEROL (test code = 2210) 255 MG/DL TRIGLYCERIDES (test code = 2232) 144 MG/DL HDL CHOLESTEROL (test code = 2220) 62 MG/DL CALC LDL CHOL (test code = 2237) 164 MG/DL RISK RATIO LDL/HDL (test cod e = 2238) 2.65 RATIO HEMOGLOBIN [id number] 00:00:00* Test Item Value Reference Range Interpretation Comme nts HEMOGLOBIN A1c (test code = 60000) 12.9 % HEMOGLOBIN [id number] 00:00:00* Test Item Value Reference Range Interpretation Comme nts HEMOGLOBIN A1c (test code = 37608) 12.9 % HEMOGLOBIN [id number] 00:00:00* Test Item Value Reference Range Interpretation Comme nts HEMOGLOBIN A1c (test code = 82307) 12.9 % COMPREHENSIVE METABOLIC [id number] 00:00:00* Test Item Value Reference Range Interpretation Comme nts GLUCOSE (test code = 2217) 398 MG/DL BUN (test code = 2208) 39 MG/DL CREATININE (test code = 2214) 0.88 MG/DL eGFR AMER. (test cod e = 81836) 88 ML/MIN/1.73 eGFR NON- AMER. (test code = 78824) 76 ML/MIN/1.73 CALC BUN/CREAT (test code = [...] code = 2219) 13 U/L COMPREHENSIVE METABOLIC [id number] 00:00:00* Test Item Value Reference Range Interpretation Comme nts GLUCOSE (test code = 2217) 398 MG/DL BUN (test code = 2208) 39 MG/DL CREATININE (test code = 2214) 0.88 MG/DL eGFR AMER. (test cod e = 01401) 88 ML/MIN/1.73 eGFR NON- AMER. (test code = 15837) 76 ML/MIN/1.73 CALC BUN/CREAT (test code = [...] (test code = 2219) 13 U/L LIPID [id number] 00:00:00* Test Item Value Reference Range Interpretation Comme nts CHOLESTEROL (test code = 2210) 255 MG/DL TRIGLYCERIDES (test code = 2232) 144 MG/DL HDL CHOLESTEROL (test code = 2220) 62 MG/DL CALC LDL CHOL (test code = 2237) 164 MG/DL RISK RATIO LDL/HDL (test cod e = 2238) 2.65 RATIO LIPID [id number] 00:00:00* Test Item Value Reference Range Interpretation Comme nts CHOLESTEROL (test code = 2210) 255 MG/DL TRIGLYCERIDES (test code = 2232) 144 MG/DL HDL CHOLESTEROL (test code = 2220) 62 MG/DL CALC LDL CHOL (test code = 2237) 164 MG/DL RISK RATIO LDL/HDL (test cod e = 2238) 2.65 RATIO HEMOGLOBIN [id number] 00:00:00* Test Item Value Reference Range Interpretation Comme nts HEMOGLOBIN A1c (test code = 17523) 12.9 % HEMOGLOBIN [id number] 00:00:00* Test Item Value Reference Range Interpretation Comme nts HEMOGLOBIN A1c (test code = 76227) 12.9 % HEMOGLOBIN [id number] 00:00:00* Test Item Value Reference Range Interpretation Comme nts HEMOGLOBIN A1c (test code = 66265) 12.9 % HEMOGLOBIN [id number] 00:00:00* Test Item Value Reference Range Interpretation Comme nts HEMOGLOBIN A1c (test code = 48464) 13.9 % CBC W/AUTO [id number] 00:00:00* Test Item Value Reference Range Interpretation [...] code = 1015) 272 K/UL CBC W/AUTO [id number] 00:00:00* Test Item Value Reference Range Interpretation [...] code = 1015) 272 K/UL CBC W/AUTO [id number] 00:00:00* Test Item Value Reference Range Interpretation [...] code = 1015) 272 K/UL COMPREHENSIVE METABOLIC [id number] 00:00:00* Test Item Value Reference Range Interpretation Comme nts GLUCOSE (test code = 2217) 241 MG/DL BUN (test code = 2208) 21 MG/DL CREATININE (test code = 2214) 0.83 MG/DL eGFR AMER. (test cod e = 27413) 94 ML/MIN/1.73 eGFR NON- AMER. (test code = 94179) 81 ML/MIN/1.73 CALC BUN/CREAT (test code = [...] code = 2219) 14 U/L COMPREHENSIVE METABOLIC [id number] 00:00:00* Test Item Value Reference Range Interpretation Comme nts GLUCOSE (test code = 2217) 241 MG/DL BUN (test code = 2208) 21 MG/DL CREATININE (test code = 2214) 0.83 MG/DL eGFR AMER. (test cod e = 38747) 94 ML/MIN/1.73 eGFR NON- AMER. (test code = 81926) 81 ML/MIN/1.73 CALC BUN/CREAT (test code = [...] (test code = 2219) 14 U/L LIPID [id number] 00:00:00* Test Item Value Reference Range Interpretation Comme nts CHOLESTEROL (test code = 2210) 255 MG/DL TRIGLYCERIDES (test code = 2232) 116 MG/DL HDL CHOLESTEROL (test code = 2220) 75 MG/DL CALC LDL CHOL (test code = 2237) 157 MG/DL RISK RATIO LDL/HDL (test cod e = 2238) 2.09 RATIO LIPID [id number] 00:00:00* Test Item Value Reference Range Interpretation [...] (test code = 2821) 0.892 UIU/ML HEMOGLOBIN [id number] 00:00:00* Test Item Value Reference Range Interpretation Comme nts HEMOGLOBIN A1c (test code = 42037) 13.9 % HEMOGLOBIN [id number] 00:00:00* Test Item Value Reference Range Interpretation Comme nts HEMOGLOBIN A1c (test code = 91155) 13.9 % HEMOGLOBIN [id number] 00:00:00* Test Item Value Reference Range Interpretation Comme nts HEMOGLOBIN A1c (test code = 26628) 13.9 % CBC W/AUTO [id number] 00:00:00* Test Item Value Reference Range Interpretation [...] code = 1015) 272 K/UL CBC W/AUTO [id number] 00:00:00* Test Item Value Reference Range Interpretation [...] code = 1015) 272 K/UL CBC W/AUTO [id number] 00:00:00* Test Item Value Reference Range Interpretation [...] code = 1015) 272 K/UL COMPREHENSIVE METABOLIC [id number] 00:00:00* Test Item Value Reference Range Interpretation Comme nts GLUCOSE (test code = 2217) 241 MG/DL BUN (test code = 2208) 21 MG/DL CREATININE (test code = 2214) 0.83 MG/DL eGFR AMER. (test cod e = 29037) 94 ML/MIN/1.73 eGFR NON- AMER. (test code = 84227) 81 ML/MIN/1.73 CALC BUN/CREAT (test code = [...] code = 2219) 14 U/L COMPREHENSIVE METABOLIC [id number] 00:00:00* Test Item Value Reference Range Interpretation Comme nts GLUCOSE (test code = 2217) 241 MG/DL BUN (test code = 2208) 21 MG/DL CREATININE (test code = 2214) 0.83 MG/DL eGFR AMER. (test cod e = 88996) 94 ML/MIN/1.73 eGFR NON- AMER. (test code = 73833) 81 ML/MIN/1.73 CALC BUN/CREAT (test code = [...] (test code = 2219) 14 U/L LIPID [id number] 00:00:00* Test Item Value Reference Range Interpretation Comme nts CHOLESTEROL (test code = 2210) 255 MG/DL TRIGLYCERIDES (test code = 2232) 116 MG/DL HDL CHOLESTEROL (test code = 2220) 75 MG/DL CALC LDL CHOL (test code = 2237) 157 MG/DL RISK RATIO LDL/HDL (test cod e = 2238) 2.09 RATIO LIPID [id number] 00:00:00* Test Item Value Reference Range Interpretation [...] (test code = 2821) 0.892 UIU/ML HEMOGLOBIN [id number] 00:00:00* Test Item Value Reference Range Interpretation Comme nts HEMOGLOBIN A1c (test code = 18842) 13.9 % HEMOGLOBIN [id number] 00:00:00* Test Item Value Reference Range Interpretation Comme nts HEMOGLOBIN A1c (test code = 25063) 13.9 % HEMOGLOBIN [id number] 00:00:00* Test Item Value Reference Range Interpretation Comme nts HEMOGLOBIN A1c (test code = 56998) 13.9 % CBC W/AUTO [id number] 00:00:00* Test Item Value Reference Range Interpretation [...] code = 1015) 272 K/UL CBC W/AUTO [id number] 00:00:00* Test Item Value Reference Range Interpretation [...] code = 1015) 272 K/UL CBC W/AUTO [id number] 00:00:00* Test Item Value Reference Range Interpretation [...] code = 1015) 272 K/UL COMPREHENSIVE METABOLIC [id number] 00:00:00* Test Item Value Reference Range Interpretation Comme nts GLUCOSE (test code = 2217) 241 MG/DL BUN (test code = 2208) 21 MG/DL CREATININE (test code = 2214) 0.83 MG/DL eGFR AMER. (test cod e = 68410) 94 ML/MIN/1.73 eGFR NON- AMER. (test code = 96522) 81 ML/MIN/1.73 CALC BUN/CREAT (test code = [...] code = 2219) 14 U/L COMPREHENSIVE METABOLIC [id number] 00:00:00* Test Item Value Reference Range Interpretation Comme nts GLUCOSE (test code = 2217) 241 MG/DL BUN (test code = 2208) 21 MG/DL CREATININE (test code = 2214) 0.83 MG/DL eGFR AMER. (test cod e = 93614) 94 ML/MIN/1.73 eGFR NON- AMER. (test code = 29280) 81 ML/MIN/1.73 CALC BUN/CREAT (test code = [...] (test code = 2219) 14 U/L LIPID [id number] 00:00:00* Test Item Value Reference Range Interpretation Comme nts CHOLESTEROL (test code = 2210) 255 MG/DL TRIGLYCERIDES (test code = 2232) 116 MG/DL HDL CHOLESTEROL (test code = 2220) 75 MG/DL CALC LDL CHOL (test code = 2237) 157 MG/DL RISK RATIO LDL/HDL (test cod e = 2238) 2.09 RATIO LIPID [id number] 00:00:00* Test Item Value Reference Range Interpretation [...] (test code = 2821) 0.892 UIU/ML HEMOGLOBIN [id number] 00:00:00* Test Item Value Reference Range Interpretation Comme nts HEMOGLOBIN A1c (test code = 56695) 13.9 % HEMOGLOBIN [id number] 00:00:00* Test Item Value Reference Range Interpretation Comme nts HEMOGLOBIN A1c (test code = 55879) 13.9 % HEMOGLOBIN [id number] 00:00:00* Test Item Value Reference Range Interpretation Comme nts HEMOGLOBIN A1c (test code = 39588) 13.9 % CBC W/AUTO [id number] 00:00:00* Test Item Value Reference Range Interpretation [...] code = 1015) 272 K/UL CBC W/AUTO [id number] 00:00:00* Test Item Value Reference Range Interpretation [...] code = 1015) 272 K/UL CBC W/AUTO [id number] 00:00:00* Test Item Value Reference Range Interpretation [...] code = 1015) 272 K/UL COMPREHENSIVE METABOLIC [id number] 00:00:00* Test Item Value Reference Range Interpretation Comme nts GLUCOSE (test code = 2217) 241 MG/DL BUN (test code = 2208) 21 MG/DL CREATININE (test code = 2214) 0.83 MG/DL eGFR AMER. (test cod e = 24785) 94 ML/MIN/1.73 eGFR NON- AMER. (test code = 22369) 81 ML/MIN/1.73 CALC BUN/CREAT (test code = [...] code = 2219) 14 U/L COMPREHENSIVE METABOLIC [id number] 00:00:00* Test Item Value Reference Range Interpretation Comme nts GLUCOSE (test code = 2217) 241 MG/DL BUN (test code = 2208) 21 MG/DL CREATININE (test code = 2214) 0.83 MG/DL eGFR AMER. (test cod e = 09062) 94 ML/MIN/1.73 eGFR NON- AMER. (test code = 90746) 81 ML/MIN/1.73 CALC BUN/CREAT (test code = [...] (test code = 2219) 14 U/L LIPID [id number] 00:00:00* Test Item Value Reference Range Interpretation Comme nts CHOLESTEROL (test code = 2210) 255 MG/DL TRIGLYCERIDES (test code = 2232) 116 MG/DL HDL CHOLESTEROL (test code = 2220) 75 MG/DL CALC LDL CHOL (test code = 2237) 157 MG/DL RISK RATIO LDL/HDL (test cod e = 2238) 2.09 RATIO LIPID [id number] 00:00:00* Test Item Value Reference Range Interpretation [...] (test code = 2821) 0.892 UIU/ML HEMOGLOBIN [id number] 00:00:00* Test Item Value Reference Range Interpretation Comme nts HEMOGLOBIN A1c (test code = 90384) 13.9 % HEMOGLOBIN [id number] 00:00:00* Test Item Value Reference Range Interpretation Comme nts HEMOGLOBIN A1c (test code = 22173) 13.9 % POC, COVID 19 Antigen + Flu by SofiaPOC, COVID 19 Antigen + Flu by Michelle Notes Date/Time Note Provider Source 2023-11-27 15:39:30 XH/dlSCxgdpIqelO9LGV wGFARNeO8ZFDX CWD7TbQB0OGR/fmUI8YzzKte9e+3Awc20 24-01-23T15:39:30 Patient discharged to follow up with pcp. Signed paper work. [id number] department GwfaYG7659-73-43Y46:40:20[facility] [id number]. 7.2.045616|[id number] for patient mpuh33866-0RkqiNCWZBPOWYJETpvdhnq ed C-CDA narrative text[address]TX[address] 588KRWZFDNQVERHSXJXWTWDID8617-19- 23T15:40:201.2.840.560363.1.72.3. 15|1.2.840.004785.1.13.104.2.7.2. [id number] [facility] 2023-11-27 12:41:19 9ThM1v9ObPjtt7lbXrgy S2sKnIU022msn fTIJjguXZBamY1weU5qoM89qxtbBOu992 28-11-22T12:41:19 Patient had blood work yesterday. Provider called her back today and told her to go to ED because he creatinine was high around 3. 95032-8Jytumvvya department Triage zghrQD8397-05-31M90:41:49[facility] Triage [id number]. 7.2.388253|[id number] for patient foqf61455-9Sywxlmvll department NoteLNNARRATIVEFormatted C-CDA narrative [id number] D Wierzbicki RN[address]Gal[place]TX[place] 5[id number]- 23T12:41:491.2.840.793550.1.72.3. 15|1.2.840.637857.1.13.104.2.7.2. [id number] Maximus Weston RN [facility]"
[2024-03-17 19:53] LABS: Absolute Basophils 0.1 K/uL (0-0.5); Absolute Eosinophils 0.2 K/uL (0-0.5); Absolute Lymphocytes (CBC) 1.9 K/uL (0.7-4.9); Absolute Monocytes 0.6 K/uL (0.1-1.3); Absolute Neutrophil 3.7 K/uL (1.8-8.0); Basophils % 1.4 % (0-1.3); Eosinophils % 3.8 % (0-4.4); Hematocrit 26.6 % (36.0-45.0); Hemoglobin 8.6 g/dL (12.0-15.0); Lymphocytes % 28.7 % (15.3-44.8); MCH 28.7 pg (27.0-35.0); MCHC 32.4 g/dL (32.0-36.0); MCV 88.7 fL (80-100); MPV 9.9 fL (7.6-11.3); Monocytes % 9.6 % (3.3-12.3); Neutrophils % 56.5 % (41.7-73.7); Platelets 189 thou/uL (152-406); Red Cell Distribution Width 16.1 % (12.1-15.2)
[2024-03-17 19:55] LABS: Protime INR 0.91
[2024-03-17 20:15] LABS: ALT/SGPT 21 U/L (13-56); AST/SGOT 14 U/L (15-37); Albumin 3.5 g/dL (3.4-5.0); Albumin/Globulin Ratio 0.9 (1.1-1.8); Alkaline Phosphatase 75 U/L (45-117); Anion Gap 7.6 mEq/L (5.0-15.0); BUN Blood Urea Nitrogen 43 mg/dL (7-18); Bicarbonate 26 mEq/L (21-32); Bilirubin Total 0.2 mg/dL (0.2-1.0); Globulin 4.1 g/dL (2.3-3.5); Glomerular Filtration Rate 42 ml/min (=/>90); Glucose Level 84 mg/dL (74-106); Magnesium 2.8 mg/dL (1.6-2.4); NT PRO-BNP 1147 pg/mL (<125); Potassium 4.6 mEq/L (3.5-5.1); Protein, Total 7.6 g/dL (6.4-8.2); Sodium Level 138 mEq/L (136-145); Troponin High Sensitivity 8.7 pg/mL (<58.9)
[2024-03-17 20:23] LABS: Bilirubin Direct < 0.2 mg/dL (0-0.2)
--- NOTE | 2024-03-17 20:23 | RAD REPORT ---
EXAM DESCRIPTION: RAD - Chest Single View - 03/17/2024 8:10 pm CLINICAL HISTORY: CHEST PAIN COMPARISON: Chest Single View dated 02/26/2024; Chest Single View dated 10/15/2023; Chest Single View dated 03/06/2023; Chest Single View dated 11/13/2022 FINDINGS: Lines: None. Lungs: No evidence of edema or pneumonia. Pleural: No significant pleural effusions or pneumothorax. Cardiac: The heart size is within normal limits. Mediastinum: Within normal limits. Bones: No acute fractures. Other: None IMPRESSION: No acute cardiopulmonary disease.
[2024-03-17] MEDS ORDERED: FUROSEMIDE 20 MG/ 2ML VIAL ONE (20:35)
--- NOTE | 2024-03-17 21:00 | EDPHYS ---
Physician Documentation [facility] Name: Khris Salazar Age: 58 yrs Sex: Female : 1965 Arrival Date: 03/17/2024 Time: 18:38 Bed 5 Private MD: ED Physician Valentin Santoro HPI: 03/17 18:56 This 58 yrs old Female presents to ER via Ambulatory with complaints of sb4 Swelling all Over, chest pain. 18:58 Patient comes in stating that she feels that she has swelling all over her entire body, sb4 and her eyelids, abdomen, ankles. States that she was recently diagnosed with atrial fibrillation and started on metoprolol and a blood thinner. She saw her PCP last week who refilled her metoprolol, the pills looked different so she has accidentally been taking double the dose. Additionally, she states that she has had some chest discomfort the past few days and also states she has had a 20 pound weight gain over the past 2 weeks. Historical: - Allergies: 18:55 No Known Allergies; ph - PMHx: 18:55 Diabetes - IDDM; Hypertension; Atrial fibrillation; ph - Immunization history:: Adult Immunizations unknown. - Infectious Disease History:: Denies. - Social history:: Smoking status: Patient denies any tobacco usage or history of. ROS: 18:58 Constitutional: Negative for fever, chills, and weight loss, sb4 18:58 Cardiovascular: Positive for chest pain, edema, 18:58 All other systems are negative, Exam: 18:58 Constitutional: This is a well developed, well nourished patient who is awake, alert, sb4 and in no acute distress. Head/Face: Normocephalic, atraumatic. Eyes: Extra-ocular motions intact. Periorbital areas with no swelling, redness, or edema. ENT: Mucous membranes moist. Respiratory: Lungs have equal breath sounds bilaterally, clear to auscultation and percussion. No rales, rhonchi or wheezes noted. No increased work of breathing, no retractions or nasal flaring. Abdomen/GI: Soft, non-tender, no distension. Skin: Warm, dry with normal turgor. Normal color with no rashes, no lesions, and no evidence of cellulitis. MS/ Extremity: Pulses equal, no cyanosis. Neurovascular intact. Full, normal range of motion. 18:58 Cardiovascular: Edema: 1+ edema to level of left ankle and right ankle, JVD: is not appreciated, Vital Signs: 18:52 BP 181 / 75; Pulse 99; Resp 18; Temp 97.8; Pulse Ox 100% on R/A; Weight 81.65 kg; ph Height 5 ft. 2 in. ; 19:53 BP 140 / 72; Pulse 95; Resp 17; Pulse Ox 99% ; rv 20:50 BP 140 / 67; Pulse 86; Resp 17; Pulse Ox 99% ; jj7 21:06 BP 138 / 68; Pulse 84; Resp 18; Temp 98; Pulse Ox 99% ; rv 18:52 Body Mass Index 32.92 (81.65 kg, 157.48 cm) ph Cecille Coma Score: 19:53 Eye Response: spontaneous(4). Motor Response: obeys commands(6). Verbal Response: rv oriented(5). Total: 15. MDM: 18:55 Patient medically screened. sb4 19:00 External Records Reviewed: Inpatient record: Discharge summary from 02/28/2024 "echo sb4 showed EF 55 to 60% with grade 1 diastolic dysfunction. We did not give Lasix due to hypotension. Patient will follow-up with PCP. She was advised to monitor her BP and volume status" she has not prescribed any diuretics nor has she ever been told she has a history of congestive heart. 20:59 Data reviewed: vital signs, nurses notes, lab test result(s), EKG, radiologic studies, sb4 and as a result, I will discharge patient. 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 03/17 18:56 Order name: Basic Metabolic Panel; Complete Time: 20:24 sb4 03/17 18:56 Order name: CBC with Diff; Complete Time: 20:06 sb4 03/17 18:56 Order name: LFT's; Complete Time: 20:24 sb4 03/17 18:56 Order name: Magnesium; Complete Time: 20:24 sb4 03/17 18:56 Order name: NT PRO-BNP; Complete Time: 20:24 sb4 03/17 18:56 Order name: PT-INR; Complete Time: 20:06 sb4 03/17 18:56 Order name: Troponin HS; Complete Time: 20:24 sb4 03/17 18:56 Order name: XRAY Chest (1 view); Complete Time: 20:24 sb4 03/17 18:56 Order name: Cardiac monitoring; Complete Time: 19:24 sb4 03/17 18:56 Order name: EKG - Nurse/Tech; Complete Time: 19:05 sb4 03/17 18:56 Order name: IV Saline Lock; Complete Time: 19:44 sb4 03/17 18:56 Order name: Labs collected and sent; Complete Time: 19:44 sb4 03/17 18:56 Order name: O2 Per Protocol; Complete Time: 19:24 sb4 03/17 18:56 Order name: O2 Sat Monitoring; Complete Time: 19:24 sb4 EC:08 Rate is 96 beats/min. Rhythm is irregular, Sinus arrythmia. TN interval is normal at sb4 152 msec. QRS interval is normal at 88 msec. QT interval is normal at 350 msec. Clinical impression: LVH and Sinus arrythmia. Interpreted by me. Reviewed by me. Administered Medications: 20:38 Drug: Furosemide IVP 20 mg IVP once; give over 2 minutes Route: IVP; Site: right hand; jj Disposition: 20:02 I was immediately available on-site in the Emergency Department for consultation in the ms3 care of the patient. Disposition Summary: 03/17/24 21:00 Discharge Ordered Notes: Location: Home sb4 Problem: new sb4 Symptoms: have improved sb4 Condition: Stable sb4 Diagnosis - Diastolic (congestive) heart failure sb4 Followup: sb4 - With: Private Physician - When: 2 - 3 days - Reason: Recheck today's complaints, Re-evaluation by your physician Discharge Instructions: - Discharge Summary Sheet sb4 - Heart Failure, Diagnosis, Tppw-ww-Qiwn sb4 Forms: - Patient Portal Instructions sb4 - Leadership Thank You Letter sb4 Prescriptions: - Lasix 20 mg Oral tablet - take 1 tablet ORAL route once daily; 10 tablet; Refills: 0, Product Selection sb4 Permitted Signatures: Dispatcher [employer] EDMS Jeni Fung, RN RN ph Maude, Valentin, DO ms3 Jeannine Kaminski RN RN jj7 Yahaira Dewitt, PAOscar PAOscar sb4 Corrections: (The following items were deleted from the chart) 18:56 18:56 BASIC METABOLIC PANEL+C.LAB.BRZ ordered. EDMS EDMS 18:56 18:56 CBC+H.LAB.BRZ ordered. EDMS EDMS 18:56 18:56 HEPATIC FUNCTION+C.LAB.BRZ ordered. EDMS EDMS 18:56 18:56 MAGNESIUM+C.LAB.BRZ ordered. EDMS EDMS 18:56 18:56 PROBNP+C.LAB.BRZ ordered. EDMS EDMS 18:56 18:56 PROTIME (+INR)+COAG.LAB.BRZ ordered. EDMS EDMS 18:56 18:56 Troponin High Sensitivity+C.LAB.BRZ ordered. EDMS EDMS 18:56 18:56 Chest Single View+RAD.RAD.BRZ ordered. EDMS EDMS
--- NOTE | 2024-03-17 21:00 | ER ---
Nurse's Notes [facility] Name: Khris Salazar Age: 58 yrs Sex: Female : 1965 Arrival Date: 03/17/2024 Time: 18:38 Bed 5 Private MD: Diagnosis: Diastolic (congestive) heart failure Presentation: 03/17 18:52 Chief complaint: Patient states: Swelling to abdomen and bilateral ankles, also reports ph mild SOB and chest tightness. States that she accidentally has been taking twice the amount of prescribed metoprolol since , has difficulty reading the bottle. Coronavirus screen: Vaccine status: Patient reports receiving the 1st dose of the Covid vaccine. Ebola Screen: No symptoms or risks identified at this time. Initial Sepsis Screen: Does the patient meet any 2 criteria? No. Patient's initial sepsis screen is negative. Does the patient have a suspected source of infection? No. Patient's initial sepsis screen is negative. Risk Assessment: Do you want to hurt yourself or someone else? Patient reports no desire to harm self or others. Onset of symptoms was March 17, 2024. 18:52 Method Of Arrival: Ambulatory ph 18:52 Acuity: DINO 2 ph Triage Assessment: 18:55 General: Appears in no apparent distress. Behavior is calm, cooperative. Pain: ph Complains of pain in chest. Historical: - Allergies: 18:55 No Known Allergies; ph - PMHx: 18:55 Diabetes - IDDM; Hypertension; Atrial fibrillation; ph - Immunization history:: Adult Immunizations unknown. - Infectious Disease History:: Denies. - Social history:: Smoking status: Patient denies any tobacco usage or history of. Screenin:20 [facility] ED Fall Risk Assessment (Adult) History of falling in the last 3 months, jj7 including since admission No falls in past 3 months (0 pts) Confusion or Disorientation Yes (5 pts) Intoxicated or Sedated No (0 pts) Impaired Gait No (0 pts) Mobility Assist Device Used No (0 pt) Altered Elimination Yes (1 pt) Score/Fall Risk Level 0 - 2 = Low Risk Oriented to surroundings, Maintained a safe environment, Educated pt \T\ family on fall prevention, incl call for assistance when getting out of bed. Abuse screen: Denies threats or abuse. Nutritional screening: No deficits noted. Nutritional screening: No deficits noted. Tuberculosis screening: No symptoms or risk factors identified. Assessment: 19:20 General: Appears in no apparent distress. comfortable, Behavior is calm, cooperative, jj7 appropriate for age. Pain: Denies pain. Neuro: No deficits noted. Cardiovascular: Reports SWELLING TO BILAT EXTREMITIES AND ABD Capillary refill < 3 seconds Patient's skin is warm and dry. Vital Signs: 18:52 BP 181 / 75; Pulse 99; Resp 18; Temp 97.8; Pulse Ox 100% on R/A; Weight 81.65 kg; ph Height 5 ft. 2 in. ; 19:53 BP 140 / 72; Pulse 95; Resp 17; Pulse Ox 99% ; rv 20:50 BP 140 / 67; Pulse 86; Resp 17; Pulse Ox 99% ; jj7 21:06 BP 138 / 68; Pulse 84; Resp 18; Temp 98; Pulse Ox 99% ; rv 18:52 Body Mass Index 32.92 (81.65 kg, 157.48 cm) ph Raven Coma Score: 19:53 Eye Response: spontaneous(4). Motor Response: obeys commands(6). Verbal Response: rv oriented(5). Total: 15. ED Course: 18:40 Patient arrived in ED. rg4 18:45 Yahaira Dewitt PA-C is [facility]. sb4 18:45 Valentin Santoro DO is Attending Physician. sb4 18:55 Triage completed. ph 18:56 Arm band placed on Patient placed in an exam room, on a stretcher. ph 19:05 EKG done, by ED staff, reviewed by Yahaira Dewitt PA-C. ph 19:20 Patient has correct armband on for positive identification. Placed in gown. Bed in low jj7 position. Call light in reach. Side rails up X2. Adult w/ patient. Provided Education on: USE OF CALL GALDAMEZ. Client placed on continuous cardiac and pulse oximetry monitoring. NIBP monitoring applied. cube cutter on. Pulse ox on. Warm blanket given. 19:42 Inserted saline lock: 20 gauge in right hand, using aseptic technique. Blood collected. jj7 19:44 Basic Metabolic Panel Sent. jj7 19:44 CBC with Diff Sent. jj7 19:44 LFT's Sent. jj7 19:44 Magnesium Sent. jj7 19:44 NT PRO-BNP Sent. jj7 19:44 PT-INR Sent. jj7 19:44 Troponin HS Sent. jj7 19:53 Homar Vivar, RN is Primary Nurse. rv 19:55 No provider procedures requiring assistance completed. rv 20:12 XRAY Chest (1 view) In Process Unspecified. EDMS 21:07 IV discontinued, intact, bleeding controlled, No redness/swelling at site. Pressure rv dressing applied. Administered Medications: 20:38 Drug: Furosemide IVP 20 mg IVP once; give over 2 minutes Route: IVP; Site: right hand; jj7 Medication: 19:20 VIS not applicable for this client. jj7 Outcome: 21:00 Discharge ordered by . sb4 21:06 Discharged to home ambulatory, rv 21:06 Condition: good 21:06 Discharge instructions given to patient, Instructed on discharge instructions, follow up and referral plans. medication usage, Demonstrated understanding of instructions, follow-up care, medications, Prescriptions given X 1, 21:07 Patient left the ED. rv Signatures: Dispatcher [employer] EDCO Jeni Fung, RN RN Sandra Llamas rg4 Homar Vivar, RN RN Jeannine Cooper RN RN Yahaira Spencer, CARA PAOscar bautista
[2024-03-17 21:32] VITALS: BP 138/68; TEMP 98; O2SAT 99
--- NOTE | 2024-03-18 10:59 | EKG ---
Test Date: 2024-03-17 Test Time: 19:03:45 Global Compensation Director: PH MEASUREMENT RESULTS: Intervals: Rate: 96 NH: 152 QRSD: 88 QT: 350 QTc: 442 [place]: P: 52 NH: 152 QRS: -28 T: 58 INTERPRETIVE STATEMENTS: Normal sinus rhythm with sinus arrhythmia Possible Left atrial enlargement Left ventricular hypertrophy Abnormal ECG Compared to ECG 03/17/2024 19:02:32 Left ventricular hypertrophy now present Electronically Signed On 03-18-24 10:58:50 CDT by Wes Johnson
--- NOTE | 2024-03-18 11:00 | EKG ---
Test Date: 2024-03-17 Test Time: 19:02:32 Occupational Therapy Asst: PH MEASUREMENT RESULTS: Intervals: Rate: 0 NC: QRSD: 0 QT: 0 QTc: 0 [place]: P: NC: QRS: 0 T: 0 INTERPRETIVE STATEMENTS: No QRS complexes found, no ECG analysis possible Compared to ECG 02/26/2024 18:27:19 Atrial fibrillation no longer present ST (T wave) deviation no longer present Electronically Signed On 03-18-24 10:58:59 CDT by Wes Johnson
== END 2024-03-17 21:07 | disposition home or self-care (01) ==
LOC: ER 18:38
DX: I50.30 Unspecified diastolic (congestive) heart failure (principal); I10 Essential (primary) hypertension; I48.91 Unspecified atrial fibrillation; Z79.01 Long term (current) use of anticoagulants
CPT/HCPCS: 93005 ×2; 85025; 80048; 36415; 83735; 85610; 80076; 84484; 83880; 71045; 96374; 99285; J1940